=== PATIENT | female | born 1955 | race Caucasian/White ===

== ENCOUNTER 2016-05-18 21:58 | Emergency (ER) | payer MEDICAID, OTHER ==
[2016-05-18] MEDS ORDERED: LORazepam 2 MG/ML INJ ONE (22:20)
--- NOTE | 2016-05-18 22:24 | EDPHY ---
H & P Time Seen by Provider: 05/18/16 22:01 HPI/ROS: HPI The patient presents with vomiting which has been present all day today, she thinks she has had about 14 episodes of nonbloody nonbilious emesis. She awoke this morning and the vomiting has been constant ever since. It is moderate in severity. She has previous similar episodes. Last night she drink heavily, approximately 2 pt of hard alcohol she believes to the point of blacking out. She does not have any abdominal pain.. REVIEW OF SYSTEMS Constitutional: No fever, no chills. Eyes: No discharge. ENT: No sore throat. Cardiovascular: No chest pain, no palpitations. Respiratory: No cough, no shortness of breath. Gastrointestinal: No abdominal pain, no vomiting. Genitourinary: No hematuria. Musculoskeletal: Right wrist pain after a fall over her cat 3 days ago Skin: No rashes. Neurological: No headache. PMHx: Chronic alcohol abuse Soc Hx: Alcohol PHYSICAL General Appearance: Alert, no distress, tremulous Eyes: Pupils equal and round no pallor or injection ENT, Mouth: Mucous membranes dry, tongue wag Respiratory: There are no retractions, lungs are clear to auscultation Cardiovascular: Tachycardic Gastrointestinal: Abdomen is soft and non-tender, no masses, bowel sounds normal Neurological: A&O, moves all extremities Skin: Warm and dry, no rashes Musculoskeletal: Neck is supple non tender Extremities: symmetrical, full range of motion Psychiatric: Patient is oriented X 3, there is no agitation Source: Patient Exam Limitations: No limitations - Personal History Tetanus Vaccine Date: no vaccines in past 10 yrs - Medical/Surgical History Hx Asthma: No Hx Chronic Respiratory Disease: No Hx Diabetes: No Hx Cardiac Disease: Yes Hx Renal Disease: No Hx Cirrhosis: No Hx Alcoholism: Yes Hx HIV/AIDS: No Hx Splenectomy or Spleen Trauma: No Other PMH: Alcoholism, ddd, osteoarthritis, scoliosis, heart murmer, a-fib, C difficile-Dec 2015. PSHx: tonsillectomy - Social History Smoking Status: Never smoked Constitutional: Initial Vital Signs Temperature (C) 36.9 C 05/18/16 22:18 Heart Rate 98 05/18/16 22:18 Respiratory Rate 14 05/18/16 22:18 Blood Pressure 140/78 H 05/18/16 22:18 O2 Sat (%) 96 05/18/16 22:18 O2 Delivery Mode Room Air Allergies/Adverse Reactions: Sulfa (Sulfonamide Antibiotics) Allergy (Intermediate, Verified 05/18/16 22:18) Rash Home Medications: Medication Instructions Recorded Aspirin [Aspirin 81mg (*)] 81 mg PO DAILY #0 tab 02/02/16 Sertraline HCl [Zoloft 50mg (*)] 75 mg PO DAILY 03/14/16 Herbals/Supplements -Info Only 1 ea PO DAILY 04/22/16 Diltiazem Xr [Dilacor Xr] 240 mg PO DAILY #30 cap 04/24/16 chlordiazePOXIDE [Librium 25 mg 25 mg PO TID PRN #10 cap 04/24/16 (*)] Medical Decision Making ED Course/Re-evaluation: 10:15 p.m.- Initial patient encounter. An IV line is being established. We will plan for IV fluids, antiemetics, Ativan for alcohol withdrawal. 11:15 p.m.- I have reassessed the patient. Her heart rate continues to be normal. She is feeling better. She still has a mild hand tremor and I will give her an additional dose of Ativan for this. 12:10 a.m.- I have reassessed the patient. She is no longer tremulous and is able to tolerate fluids without difficulty. I plan to discharge her. We have discussed her alcohol use and she would like help. She was previously in the [employer] program however was found with alcohol in her system and was kicked out. I will refer her to case management. Differential Diagnosis: This is a 60-year-old female with frequent visits to our ER with past medical history of alcohol abuse, alcohol withdrawal seizures, pancreatitis, atrial fibrillation with RVR who now presents with vomiting for the last 1 day, unable to take p. o.. Differential diagnosis includes alcohol withdrawal, dehydration, pancreatitis, gastroenteritis. - Data Points Laboratory Results: Laboratory Results 05/18/16 22:20 05/18/16 22:20 05/18/16 22:20 WBC 8.59 10^3/uL (3.80-9.50) RBC 4.24 10^6/uL (4.18-5.33) Hgb 14.5 g/dL (12.6-16.3) Hct 40.9 % (38.0-47.0) MCV 96.5 fL (81.5-99.8) MCH 34.2 H pg (27.9-34.1) MCHC 35.5 g/dL (32.4-36.7) RDW 13.3 % (11.5-15.2) Plt Count 167 10^3/uL (150-400) MPV 9.5 fL (8.7-11.7) Neut % (Auto) 91.9 H % (39.3-74.2) Lymph % (Auto) 4.7 L % (15.0-45.0) [place] % (Auto) 2.9 L % (4.5-13.0) Eos % (Auto) 0.0 L % (0.6-7.6) Baso % (Auto) 0.2 L % (0.3-1.7) Nucleat RBC Rel Count 0.0 % (0.0-0.2) Absolute Neuts (auto) 7.89 H 10^3/uL (1.70-6.50) Absolute Lymphs (auto) 0.40 L 10^3/uL (1.00-3.00) Absolute Monos (auto) 0.25 L 10^3/uL (0.30-0.80) Absolute Eos (auto) 0.00 L 10^3/uL (0.03-0.40) Absolute Basos (auto) 0.02 10^3/uL (0.02-0.10) Absolute Nucleated RBC 0.00 10^3/uL (0-0.01) Immature Gran % 0.3 % (0.0-1.1) Immature Gran # 0.03 10^3/uL (0.00-0.10) Sodium 136 mEq/L (134-144) Potassium 3.7 mEq/L (3.5-5.2) Chloride 100 mEq/L (97-110) Carbon Dioxide 21 L mEq/l (22-31) Anion Gap 15 mEq/L (8-16) BUN 10 mg/dL (7-23) Creatinine 0.6 mg/dL (0.6-1.0) Estimated GFR > 60 Glucose 148 H mg/dL (70-100) Calcium 9.2 mg/dL (8.5-10.4) Total Bilirubin 1.8 H mg/dL (0.1-1.4) Conjugated Bilirubin 0.4 mg/dL (0.0-0.5) Unconjugated Bilirubin 1.4 H mg/dL (0.0-1.1) AST 49 H IU/L (14-46) ALT 39 IU/L (9-52) Alkaline Phosphatase 149 H IU/L (38-126) Total Protein 6.6 g/dL (6.3-8.2) Albumin 4.4 g/dL (3.5-5.0) Lipase 261.0 IU/L (23-300) Medications Given: Discontinued Medications Sodium Chloride (Ns) 1,000 mls @ 0 mls/hr IV ONCE ONE PRN Reason: Wide Open Stop: 05/18/16 22:26 Last Admin: 05/18/16 22:35 Dose: 1,000 mls Sodium Chloride (Ns) 1,000 mls @ 0 mls/hr IV ONCE ONE PRN Reason: Wide Open Stop: 05/18/16 22:26 Last Admin: 05/18/16 23:13 Dose: 1,000 mls Lorazepam (Ativan Injection) 1 mg IVP EDNOW ONE Stop: 05/18/16 22:35 Last Admin: 05/18/16 22:35 Dose: 1 mg Lorazepam (Ativan Injection) 1 mg IVP EDNOW ONE Stop: 05/18/16 23:07 Last Admin: 05/18/16 23:13 Dose: 1 mg Ondansetron HCl (Zofran) 4 mg IVP EDNOW ONE Stop: 05/18/16 22:26 Last Admin: 05/18/16 22:35 Dose: 4 mg Departure - Departure Disposition: Home, Routine, Self-Care Clinical Impression: Alcohol abuse, Alcohol withdrawal, Vomiting Condition: Fair Instructions: Alcohol Dependence (ED), Alcohol Withdrawal (ED) Referrals: Harriet Nelson MD [Primary Care Provider] - As per Instructions
[2016-05-18] MEDS ORDERED: ONDANSETRON 4 MG/2 ML VIAL IVP ONE (22:25)
[2016-05-18] MEDS ORDERED: NS 1,000 ML IV ONE ×2 (22:25)
[2016-05-18 22:26] LABS: % IMMATURE GRANULYOCYTES 0.3 % (0.0-1.1); ABSOLUTE IMMATURE GRANULOCYTES 0.03 10^3/uL (0.00-0.10); ADD DIFF? NO; ADD MORPH? NO; ADD SCAN? NO; ATYPICAL LYMPHOCYTE FLAG 0 (0-99); FRAGMENT RBC FLAG 0 (0-99); HEMATOCRIT 40.9 % (38.0-47.0); HEMOGLOBIN 14.5 g/dL (12.6-16.3); LEFT SHIFT FLG 0 (0-99); LIPEMIA HEMOLYSIS FLAG 90 (0-99); MEAN CELL HEMOGLOBIN 34.2 pg (27.9-34.1); MEAN CELL HEMOGLOBIN CONCENTR. 35.5 g/dL (32.4-36.7); MEAN CELL VOLUME 96.5 fL (81.5-99.8); MEAN PLATELET VOLUME 9.5 fL (8.7-11.7); PLATELET CLUMPS FLAG 0 (0-99); PLATELET COUNT 167 10^3/uL (150-400); RED BLOOD CELL COUNT 4.24 10^6/uL (4.18-5.33); RED CELL DISTRIBUTION WIDTH 13.3 % (11.5-15.2)
[2016-05-18] MEDS ORDERED: LORazepam 2 MG/ML INJ IVP ONE ×2 (22:34→23:06)
[2016-05-18 22:54] LABS: ALANINE AMINOTRANSFERASE 39 IU/L (9-52); ALBUMIN 4.4 g/dL (3.5-5.0); ALKALINE PHOSPHATASE 149 IU/L (38-126); ANION GAP 15 mEq/L (8-16); ASPARTATE AMINOTRANSFERASE 49 IU/L (14-46); BILIRUBIN,TOTAL 1.8 mg/dL (0.1-1.4); BILIRUBIN-CONJUGATED 0.4 mg/dL (0.0-0.5); BILIRUBIN-UNCONJUGATED 1.4 mg/dL (0.0-1.1); CALCIUM 9.2 mg/dL (8.5-10.4); CARBON DIOXIDE 21 mEq/l (22-31); CHLORIDE 100 mEq/L (97-110); CREATININE 0.6 mg/dL (0.6-1.0); GLOMERULAR FILTRATION RATE > 60; GLUCOSE 148 mg/dL (70-100); POTASSIUM 3.7 mEq/L (3.5-5.2); SODIUM 136 mEq/L (134-144); TOTAL PROTEIN 6.6 g/dL (6.3-8.2)
--- NOTE | 2016-05-18 23:47 | DX ---
Right Wrist, 4 views including a navicular view History: Pain post trauma. Recent seizure. Swelling. Findings: No acute fracture or dislocation is identified. There is diffuse low bone density. There i s an old healed mid shaft fifth metacarpal fracture. The navicular bone looks normal. Impression: 1. Nothing acute or subacute identified. Specifically no evidence of a healing or ununite d fracture.
[2016-05-19 00:33] VITALS: BP 108/77; PULSE 94; RESP 16; TEMP 97.9; O2SAT 96
== END 2016-05-19 00:33 | disposition home or self-care (01) ==
DX: F10.239 Alcohol dependence with withdrawal, unspecified (principal); Z79.82 Long term (current) use of aspirin
CPT/HCPCS: 96374; J2405

== ENCOUNTER 2016-06-09 12:53 | Emergency (ER) | payer MEDICAID ==
[2016-06-09 13:09] VITALS: O2SAT 93
[2016-06-09] MEDS ORDERED: NS 1,000 ML IV ONE ×2 (14:46)
[2016-06-09] MEDS ORDERED: ONDANSETRON 4 MG/2 ML VIAL IVP ONE (14:46)
[2016-06-09] MEDS ORDERED: FAMOTIDINE 20 MG/NACL 50 ML IV ONE (14:46)
[2016-06-09] MEDS ORDERED: LORazepam 2 MG/ML INJ IVP ONE ×2 (14:47→15:30)
--- NOTE | 2016-06-09 14:51 | EDPHY ---
H & P Stated Complaint: etoh withdrawal/n/v tremors Time Seen by Provider: 06/09/16 14:41 - Personal History Current Tetanus/Diphtheria Vaccine: Yes Tetanus Vaccine Date: no vaccines in past 10 yrs - Medical/Surgical History Hx Asthma: No Hx Chronic Respiratory Disease: No Hx Diabetes: No Hx Cardiac Disease: Yes Hx Renal Disease: No Hx Cirrhosis: No Hx Alcoholism: Yes Hx HIV/AIDS: No Hx Splenectomy or Spleen Trauma: No Other PMH: Alcoholism, ddd, osteoarthritis, scoliosis, heart murmer, a-fib, C difficile-Dec 2015. PSHx: tonsillectomy - Social History Smoking Status: Never smoked Constitutional: Initial Vital Signs Temperature (C) 37.1 C 06/09/16 13:06 Heart Rate 116 H 06/09/16 13:06 Respiratory Rate 20 06/09/16 13:06 Blood Pressure 148/94 H 06/09/16 13:06 O2 Sat (%) 93 06/09/16 13:06 O2 Delivery Mode Room Air Allergies/Adverse Reactions: Sulfa (Sulfonamide Antibiotics) Allergy (Intermediate, Verified 06/09/16 13:03) Rash Home Medications: Medication Instructions Recorded Aspirin [Aspirin 81mg (*)] 81 mg PO DAILY #0 tab 02/02/16 Sertraline HCl [Zoloft 50mg (*)] 75 mg PO DAILY 03/14/16 Herbals/Supplements -Info Only 1 ea PO DAILY 04/22/16 Diltiazem Xr [Dilacor Xr] 240 mg PO DAILY #30 cap 04/24/16 GABAPENTIN 06/09/16 Zofran 06/09/16 Medical Decision Making ED Course/Re-evaluation: CHIEF COMPLAINT: Alcohol intoxication. HISTORY OF PRESENT ILLNESS: The patient is a chronic alcoholic Who lives at home. Patient drinks on a daily basis. patient has not had alcohol since 11: 00 p.m. last night. Patient is now withdrawal with shakes and vomiting and unable to hold down fluids. She has presented here multiple times in the past for the same reason. Patient denies any injuries denies loss of consciousness denies any recent trauma. Patient denies co-ingestion. Patient denies suicidal or homicidal behavior. REVIEW OF SYSTEMS: A 10 point review of systems was performed and is negative with the exception of the elements mentioned in the history of present illness. PHYSICAL EXAM: General Appearance: Alert, well hydrated, appropriate, and non-toxic appearing. Head: Atraumatic without scalp tenderness or obvious injury Eyes: Pupils equal, round, reactive to light and accommodation, EOMI, no trauma , no injection. Ears: Clear bilaterally, no perforation, normal landmarks Nose: Atraumatic, no rhinorrhea, clear. Throat: There is no erythema or exudates, no lesions, normal tonsils, mucus membranes moist. Neck: Supple, 2+ carotid upstroke, nontender, no lymphadenopathy. Respiratory: No retractions, no distress, no wheezes, and no accessory muscle use. Lungs are clear to auscultation bilaterally. Cardiovascular: Regular rate and rhythm, no murmurs, rubs, or gallops. Bilateral carotid, radial, dorsalis pedis, and posterior tibial pulses intact. Good capillary refill all extremities. Gastrointestinal: Abdomen is soft, nontender, non-distended, no masses, no rebound, no guarding, no peritoneal signs. Musculoskeletal: Normal active ROM of all extremities, atraumatic. Neurological: General shakiness,Alert, appropriate, and interactive. The patient has normal DTRs and non-focal cranial nerves, motor, sensory, and cerebellar exam. Skin: No rashes, good turgor, no nodules on palpation. PAST MEDICAL HISTORY: hypertension, chronic alcoholism, peripheral neuropathy PAST SURGICAL HISTORY: noncontributory SOCIAL HISTORY: lives at home, chronic alcoholism, denies abuse of cigarettes or other drugs DIFFERENTIAL DIAGNOSIS: The differential diagnosis for the patient's nausea and vomiting included but was not limited to [gastroenteritis, gastritis, appendicitis, alcohol withdrawal, and medication side effect.] MEDICAL DECISION MAKING: I have given this patient intravenous fluids, 1 mg of Ativan, 4 mg of Zofran. I have also given her 20 mg of Pepcid. She is having tremors and vomiting in scarring on the CIWA scale at this point. I will stabilize her hydrate her make sure she can take p. o. and then discuss addiction recovery disposition. - Data Points Laboratory Results: Laboratory Results 06/09/16 14:45 06/09/16 14:45 06/09/16 14:45 WBC 8.92 10^3/uL (3.80-9.50) RBC 4.34 10^6/uL (4.18-5.33) Hgb 14.6 g/dL (12.6-16.3) Hct 43.1 % (38.0-47.0) MCV 99.3 fL (81.5-99.8) MCH 33.6 pg (27.9-34.1) MCHC 33.9 g/dL (32.4-36.7) RDW 13.8 % (11.5-15.2) Plt Count 126 L 10^3/uL (150-400) MPV 9.1 fL (8.7-11.7) Neut % (Auto) 91.9 H % (39.3-74.2) Lymph % (Auto) 2.9 L % (15.0-45.0) [place] % (Auto) 4.6 % (4.5-13.0) Eos % (Auto) 0.0 L % (0.6-7.6) Baso % (Auto) 0.2 L % (0.3-1.7) Nucleat RBC Rel Count 0.0 % (0.0-0.2) Absolute Neuts (auto) 8.19 H 10^3/uL (1.70-6.50) Absolute Lymphs (auto) 0.26 L 10^3/uL (1.00-3.00) Absolute Monos (auto) 0.41 10^3/uL (0.30-0.80) Absolute Eos (auto) 0.00 L 10^3/uL (0.03-0.40) Absolute Basos (auto) 0.02 10^3/uL (0.02-0.10) Absolute Nucleated RBC 0.00 10^3/uL (0-0.01) Immature Gran % 0.4 % (0.0-1.1) Immature Gran # 0.04 10^3/uL (0.00-0.10) Sodium 140 mEq/L (134-144) Potassium 5.3 H mEq/L (3.5-5.2) Chloride 104 mEq/L (97-110) Carbon Dioxide 13 L mEq/l (22-31) Anion Gap 23 H mEq/L (8-16) BUN 11 mg/dL (7-23) Creatinine 0.8 mg/dL (0.6-1.0) Estimated GFR > 60 Glucose 193 H mg/dL (70-100) Calcium 9.0 mg/dL (8.5-10.4) Total Bilirubin 1.4 mg/dL (0.1-1.4) Conjugated Bilirubin 0.6 H mg/dL (0.0-0.5) Unconjugated Bilirubin 0.8 mg/dL (0.0-1.1) AST 64 H IU/L (14-46) ALT 47 IU/L (9-52) Alkaline Phosphatase 181 H IU/L (38-126) Total Protein 7.1 g/dL (6.3-8.2) Albumin 4.7 g/dL (3.5-5.0) Lipase 273.0 IU/L (23-300) Medications Given: Discontinued Medications Sodium Chloride (Ns) 1,000 mls @ 0 mls/hr IV ONCE ONE PRN Reason: Wide Open Stop: 06/09/16 14:47 Last Admin: 06/09/16 14:50 Dose: 1,000 mls Sodium Chloride (Ns) 1,000 mls @ 0 mls/hr IV ONCE ONE PRN Reason: Wide Open Stop: 06/09/16 14:47 Last Admin: 06/09/16 15:30 Dose: 1,000 mls Famotidine/Sodium Chloride (Pepcid 20 Mg (Premix)) 50 mls @ 200 mls/hr IV EDNOW ONE Stop: 06/09/16 15:00 Last Admin: 06/09/16 15:08 Dose: 50 mls Lorazepam (Ativan Injection) 1 mg IVP EDNOW ONE Stop: 06/09/16 14:48 Last Admin: 06/09/16 15:08 Dose: 1 mg Lorazepam (Ativan Injection) 1 mg IVP EDNOW ONE Stop: 06/09/16 15:31 Last Admin: 06/09/16 15:39 Dose: 1 mg Ondansetron HCl (Zofran) 4 mg IVP EDNOW ONE Stop: 06/09/16 14:47 Last Admin: 06/09/16 15:08 Dose: 4 mg Departure - Departure Disposition: Home, Routine, Self-Care Clinical Impression: Nausea & vomiting Qualifiers: Vomiting type: unspecified Vomiting Intractability: non-intractable Qualifier Code: (R11.2) Nausea with vomiting, unspecified Alcohol withdrawal Qualifiers: Complication of substance-induced condition: uncomplicated Qualifier Code: ( F10.055) Alcohol dependence with withdrawal, uncomplicated Condition: Good Instructions: Alcohol Withdrawal (ED) Additional Instructions: Go directly to the [facility]. Referrals: Harriet Nelson MD [Primary Care Provider] - As per Instructions [facility] 24 Hours [Outside] - As per Instructions
[2016-06-09 15:01] LABS: % IMMATURE GRANULYOCYTES 0.4 % (0.0-1.1); ABSOLUTE IMMATURE GRANULOCYTES 0.04 10^3/uL (0.00-0.10); ADD DIFF? NO; ADD MORPH? NO; ADD SCAN? NO; ATYPICAL LYMPHOCYTE FLAG 0 (0-99); FRAGMENT RBC FLAG 0 (0-99); HEMATOCRIT 43.1 % (38.0-47.0); HEMOGLOBIN 14.6 g/dL (12.6-16.3); LEFT SHIFT FLG 0 (0-99); LIPEMIA HEMOLYSIS FLAG 90 (0-99); MEAN CELL HEMOGLOBIN 33.6 pg (27.9-34.1); MEAN CELL HEMOGLOBIN CONCENTR. 33.9 g/dL (32.4-36.7); MEAN CELL VOLUME 99.3 fL (81.5-99.8); MEAN PLATELET VOLUME 9.1 fL (8.7-11.7); PLATELET CLUMPS FLAG 0 (0-99); PLATELET COUNT 126 10^3/uL (150-400); RED BLOOD CELL COUNT 4.34 10^6/uL (4.18-5.33); RED CELL DISTRIBUTION WIDTH 13.8 % (11.5-15.2)
[2016-06-09 15:21] LABS: ALANINE AMINOTRANSFERASE 47 IU/L (9-52); ALBUMIN 4.7 g/dL (3.5-5.0); ALKALINE PHOSPHATASE 181 IU/L (38-126); ANION GAP 23 mEq/L (8-16); ASPARTATE AMINOTRANSFERASE 64 IU/L (14-46); BILIRUBIN,TOTAL 1.4 mg/dL (0.1-1.4); BILIRUBIN-CONJUGATED 0.6 mg/dL (0.0-0.5); BILIRUBIN-UNCONJUGATED 0.8 mg/dL (0.0-1.1); CARBON DIOXIDE 13 mEq/l (22-31); CHLORIDE 104 mEq/L (97-110); CREATININE 0.8 mg/dL (0.6-1.0); GLOMERULAR FILTRATION RATE > 60; GLUCOSE 193 mg/dL (70-100); POTASSIUM 5.3 mEq/L (3.5-5.2); SODIUM 140 mEq/L (134-144); TOTAL PROTEIN 7.1 g/dL (6.3-8.2)
[2016-06-09 16:40] VITALS: BP 157/93; PULSE 100; RESP 18; TEMP 99.1
== END 2016-06-09 16:47 | disposition home or self-care (01) ==
DX: F10.230 Alcohol dependence with withdrawal, uncomplicated (principal); R11.2 Nausea with vomiting, unspecified; I10 Essential (primary) hypertension; Z79.82 Long term (current) use of aspirin
CPT/HCPCS: 96365; J2405

== ENCOUNTER 2016-06-20 00:44 | Emergency (ER) | payer MEDICAID ==
--- NOTE | 2016-06-20 00:57 | CPEKG ---
Heart Rate: 111 RR Interval: 541 P-R Interval: 176 QRSD Interval: 70 QT Interval: 344 QTC Interval: 468 P [place]: 54 QRS [place]: 15 T Wave [place]: 14 EKG Severity - BORDERLINE ECG - EKG Impression: SINUS TACHYCARDIA EKG Impression: LOW VOLTAGE IN FRONTAL LEADS Electronically Signed By: Irais Blackmon 20-Jun-2016 06:41:18
[2016-06-20 00:59] VITALS: PULSE 105; TEMP 98.1
[2016-06-20] MEDS ORDERED: LORazepam 2 MG/ML INJ IVP ONE ×2 (01:13→02:43)
[2016-06-20] MEDS ORDERED: NS 1,000 ML IV ONE ×2 (01:13→02:44)
[2016-06-20] MEDS ORDERED: ONDANSETRON 4 MG/2 ML VIAL IVP ONE (01:14)
[2016-06-20 01:17] LABS: % IMMATURE GRANULYOCYTES 0.3 % (0.0-1.1); ABSOLUTE IMMATURE GRANULOCYTES 0.01 10^3/uL (0.00-0.10); ADD DIFF? NO; ADD MORPH? NO; ADD SCAN? NO; ATYPICAL LYMPHOCYTE FLAG 10 (0-99); FRAGMENT RBC FLAG 0 (0-99); HEMATOCRIT 46.9 % (38.0-47.0); HEMOGLOBIN 16.3 g/dL (12.6-16.3); LEFT SHIFT FLG 0 (0-99); LIPEMIA HEMOLYSIS FLAG 90 (0-99); MEAN CELL HEMOGLOBIN 34.7 pg (27.9-34.1); MEAN CELL HEMOGLOBIN CONCENTR. 34.8 g/dL (32.4-36.7); MEAN CELL VOLUME 99.8 fL (81.5-99.8); MEAN PLATELET VOLUME 9.8 fL (8.7-11.7); PLATELET CLUMPS FLAG 0 (0-99); PLATELET COUNT 92 10^3/uL (150-400); RED CELL DISTRIBUTION WIDTH 16.3 % (11.5-15.2)
[2016-06-20 01:35] LABS: ALANINE AMINOTRANSFERASE 55 IU/L (9-52); ALBUMIN 4.9 g/dL (3.5-5.0); ALKALINE PHOSPHATASE 232 IU/L (38-126); ANION GAP 19 mEq/L (8-16); ASPARTATE AMINOTRANSFERASE 100 IU/L (14-46); BILIRUBIN,TOTAL 1.6 mg/dL (0.1-1.4); BILIRUBIN-CONJUGATED 0.6 mg/dL (0.0-0.5); CALCIUM 10.5 mg/dL (8.5-10.4); CARBON DIOXIDE 20 mEq/l (22-31); CHLORIDE 99 mEq/L (97-110); CREATININE 0.8 mg/dL (0.6-1.0); GLOMERULAR FILTRATION RATE > 60; POTASSIUM 3.8 mEq/L (3.5-5.2); SODIUM 138 mEq/L (134-144); TOTAL PROTEIN 8.2 g/dL (6.3-8.2)
[2016-06-20 01:46] LABS: TROPONIN I 0.023 ng/mL (0-0.034)
[2016-06-20 01:49] LABS: GLUCOSE 113 mg/dL (70-100)
--- NOTE | 2016-06-20 02:26 | EDPHY ---
H & P Stated Complaint: tachycardia, hypertension, N/V "I feel crappy" Time Seen by Provider: 06/20/16 01:08 HPI/ROS: HPI The patient presents with vomiting which has been present for several hours this evening and is associated with a general sense of malaise. She checked her heart rate and it was in the 100s with elevated blood pressure so she called her advice nurse and was instructed to come into the emergency room. The vomiting is nonbloody nonbilious. It has now stopped. She does not have any abdominal pain. Her last alcoholic drink was at noon. She denies any chest pain, shortness of breath. She says that she has been able to take her medications. REVIEW OF SYSTEMS Constitutional: No fever, no chills. Eyes: No discharge. ENT: No sore throat. Cardiovascular: No chest pain, no palpitations. Respiratory: No cough, no shortness of breath. Gastrointestinal: No abdominal pain, no vomiting. Genitourinary: No hematuria. Musculoskeletal: No back pain. Skin: No rashes. Neurological: No headache. PMHx: Atrial fibrillation, chronic alcohol abuse, history of alcoholic pancreatitis Soc Hx: Lives independently PHYSICAL General Appearance: Alert, no distress Eyes: Pupils equal and round no pallor or injection ENT, Mouth: Mucous membranes dry Respiratory: There are no retractions, lungs are clear to auscultation Cardiovascular: Tachycardic rate rate and regular rhythm Gastrointestinal: Abdomen is soft and non-tender, no masses, bowel sounds normal Neurological: A&O, moves all extremities, fine hand tremor Skin: Warm and dry, no rashes Musculoskeletal: Neck is supple non tender Extremities: symmetrical, full range of motion Psychiatric: Patient is oriented X 3, there is no agitation Source: Patient - Personal History Tetanus Vaccine Date: no vaccines in past 10 yrs - Medical/Surgical History Hx Asthma: No Hx Chronic Respiratory Disease: No Hx Diabetes: No Hx Cardiac Disease: Yes Hx Renal Disease: No Hx Cirrhosis: No Hx Alcoholism: Yes Hx HIV/AIDS: No Hx Splenectomy or Spleen Trauma: No Other PMH: PMHx: Alcoholism, ddd, osteoarthritis, scoliosis, heart murmer, a-fib , C difficile-Dec 2015. PSHx: tonsillectomy - Social History Smoking Status: Never smoked Constitutional: Initial Vital Signs Temperature (C) 36.7 C 06/20/16 00:54 Heart Rate 105 H 06/20/16 00:54 Respiratory Rate 14 06/20/16 00:54 Blood Pressure 180/111 H 06/20/16 00:54 O2 Sat (%) 93 06/20/16 00:54 O2 Delivery Mode Room Air O2 (L/minute) 2 Allergies/Adverse Reactions: Sulfa (Sulfonamide Antibiotics) Allergy (Intermediate, Verified 06/09/16 13:03) Rash Home Medications: Medication Instructions Recorded Aspirin [Aspirin 81mg (*)] 81 mg PO DAILY #0 tab 02/02/16 Sertraline HCl [Zoloft 50mg (*)] 75 mg PO DAILY 03/14/16 Herbals/Supplements -Info Only 1 ea PO DAILY 04/22/16 Diltiazem Xr [Dilacor Xr] 240 mg PO DAILY #30 cap 04/24/16 GABAPENTIN 06/09/16 Zofran 06/09/16 Medical Decision Making - Diagnostics EKG Interpretation: EKG: Complete interpretation has been separately recorded in the [facility] archive. Summary impression: Sinus tachycardia Imaging: Chest x-ray two view shows no cardiomegaly, interpreted by me, radiology interpretation is pending. Differential Diagnosis: This is a 60-year-old female with chronic alcohol abuse, history of pancreatitis , atrial fibrillation who presents with vomiting and generalized malaise since this afternoon. She checked her vitals and found that she was tachycardic and hypertensive. On exam, she is slightly hypertensive and tachycardic. I feel this is mostly due to dehydration from vomiting. Her abdominal exam is benign. She is given IV fluids and Zofran. Labs revealed elevated lipase and elevated liver tests. I feel she has pancreatitis as her most likely diagnosis with dehydration. Chest x-ray, troponin were all unremarkable. She was persistently tachycardic and seemed to be in mild alcohol withdrawal so was given additional L of fluid and a dose of Ativan with improvement in her symptoms. She was still very slightly tachycardic upon discharge. Her oxygen saturation on discharge was recorded 86, however she was resting at this time, and I doubt she was truly hypoxic. She will be discharged and has her 1st photographic spotter appointment tomorrow. - Data Points Laboratory Results: Laboratory Results 06/20/16 01:05 06/20/16 01:05 06/20/16 06/20/16 01:05 01:05 WBC 3.97 10^3/uL 10^3/uL (3.80-9.50) RBC 4.70 10^6/uL 10^6/uL (4.18-5.33) Hgb 16.3 g/dL g/dL (12.6-16.3) Hct 46.9 % % (38.0-47.0) MCV 99.8 fL fL (81.5-99.8) MCH 34.7 pg H pg (27.9-34.1) MCHC 34.8 g/dL g/dL (32.4-36.7) RDW 16.3 % H % (11.5-15.2) Plt Count 92 10^3/uL L 10^3/uL (150-400) MPV 9.8 fL fL (8.7-11.7) Neut % (Auto) 70.9 % % (39.3-74.2) Lymph % (Auto) 16.9 % % (15.0-45.0) [place] % (Auto) 10.3 % % (4.5-13.0) Eos % (Auto) 0.8 % % (0.6-7.6) Baso % (Auto) 0.8 % % (0.3-1.7) Nucleat RBC Rel Count 0.0 % % (0.0-0.2) Absolute Neuts (auto) 2.82 10^3/uL 10^3/uL (1.70-6.50) Absolute Lymphs (auto) 0.67 10^3/uL L 10^3/uL (1.00-3.00) Absolute Monos (auto) 0.41 10^3/uL 10^3/uL (0.30-0.80) Absolute Eos (auto) 0.03 10^3/uL 10^3/uL (0.03-0.40) Absolute Basos (auto) 0.03 10^3/uL 10^3/uL (0.02-0.10) Absolute Nucleated RBC 0.00 10^3/uL 10^3/uL (0-0.01) Immature Gran % 0.3 % % (0.0-1.1) Immature Gran # 0.01 10^3/uL 10^3/uL (0.00-0.10) Sodium 138 mEq/L mEq/L (134-144) Potassium 3.8 mEq/L mEq/L (3.5-5.2) Chloride 99 mEq/L mEq/L (97-110) Carbon Dioxide 20 mEq/l L mEq/l (22-31) Anion Gap 19 mEq/L H mEq/L (8-16) BUN 4 mg/dL L mg/dL (7-23) Creatinine 0.8 mg/dL mg/dL (0.6-1.0) Estimated GFR > 60 Glucose 113 mg/dL H mg/dL (70-100) Calcium 10.5 mg/dL H mg/dL (8.5-10.4) Total Bilirubin 1.6 mg/dL H mg/dL (0.1-1.4) Conjugated Bilirubin 0.6 mg/dL H mg/dL (0.0-0.5) Unconjugated Bilirubin 1.0 mg/dL mg/dL (0.0-1.1) AST 100 IU/L H IU/L (14-46) ALT 55 IU/L H IU/L (9-52) Alkaline Phosphatase 232 IU/L H IU/L (38-126) Troponin I 0.023 ng/mL ng/mL (0-0.034) Total Protein 8.2 g/dL g/dL (6.3-8.2) Albumin 4.9 g/dL g/dL (3.5-5.0) Lipase 534.0 IU/L H IU/L (23-300) Medications Given: Discontinued Medications Sodium Chloride (Ns) 1,000 mls @ 0 mls/hr IV ONCE ONE PRN Reason: Wide Open Stop: 06/20/16 01:14 Last Admin: 06/20/16 01:22 Dose: 1,000 mls Sodium Chloride (Ns) 1,000 mls @ 0 mls/hr IV EDNOW ONE PRN Reason: Wide Open Stop: 06/20/16 02:45 Last Admin: 06/20/16 02:44 Dose: 1,000 mls Lorazepam (Ativan Injection) 1 mg IVP EDNOW ONE Stop: 06/20/16 01:14 Last Admin: 06/20/16 01:23 Dose: 1 mg Lorazepam (Ativan Injection) 1 mg IVP EDNOW ONE Stop: 06/20/16 02:44 Last Admin: 06/20/16 02:44 Dose: 1 mg Ondansetron HCl (Zofran) 4 mg IVP EDNOW ONE Stop: 06/20/16 01:15 Last Admin: 06/20/16 01:22 Dose: 4 mg Departure - Departure Disposition: Home, Routine, Self-Care Clinical Impression: Pancreatitis Qualifiers: Chronicity: acute Pancreatitis type: alcohol induced Acute pancreatitis complication: unspecified Qualified Code(s): K85.20 - Alcohol induced acute pancreatitis without necrosis or infection Alcohol withdrawal Qualifiers: Complication of substance-induced condition: with unspecified complication Qualified Code(s): F10.239 - Alcohol dependence with withdrawal, unspecified Atrial fibrillation Qualifiers: Atrial fibrillation type: persistent Qualified Code(s): I48.1 - Persistent atrial fibrillation Nausea & vomiting Qualifiers: Vomiting type: unspecified Vomiting Intractability: non-intractable Qualified Code(s): R11.2 - Nausea with vomiting, unspecified Condition: Good Instructions: Pancreatitis (ED) Referrals: Harriet Nelson MD [Primary Care Provider] - As per Instructions
[2016-06-20 02:34] VITALS: BP 183/105; RESP 15; O2SAT 86
[2016-06-20] MEDS ORDERED: LORazepam 2 MG/ML INJ ONE (02:36)
== END 2016-06-20 04:07 | disposition home or self-care (01) ==
DX: K85.20 Alcohol induced acute pancreatitis without necrosis or infection (principal); F10.239 Alcohol dependence with withdrawal, unspecified; I48.1 Persistent atrial fibrillation; Z79.82 Long term (current) use of aspirin
CPT/HCPCS: 96374; J2405

== ENCOUNTER 2016-06-30 15:23 | Emergency (ER) | payer MEDICAID ==
--- NOTE | 2016-06-30 15:45 | EDPHY ---
H & P Time Seen by Provider: 06/30/16 15:44 HPI/ROS: CHIEF COMPLAINT: " I have alcohol withdrawal." HISTORY OF PRESENT ILLNESS: The patient is a 60-year-old female with a history of alcoholism that presents to the emergency department stating that she has been vomiting for the past 10 hours due to alcohol withdrawal. Her last drink was last evening. She states she goes on binges intermittently. She drank a pint of alcohol per day for the last few days. Patient describes general body shakes. No nausea, vomiting and diarrhea. Patient has had no recent illnesses. She denies chest pain or shortness of breath. No recent falls. No headache. REVIEW OF SYSTEMS: My complete review of systems is negative except as mentioned in the HPI. Past Medical/Surgical History: Includes alcoholism, degenerative disc disease, osteoarthritis, scoliosis, heart murmur, C difficile, atrial fibrillation Past surgical history: Tonsillectomy Social history: The patient drinks heavily. No drug use. Smoking Status: Never smoked Physical Exam: Vitals noted GENERAL: mild acute distress, alert. HEENT: Eyes normal to inspection, normal pharynx, no signs of dehydration. NECK: No thyromegaly, no lymphadenopathy, supple. RESPIRATORY: Clear to auscultation bilaterally, no rales, rhonchi or wheezing. CVS: Mild tachycardia with a irregular rhythm, no rubs, murmurs, or gallops. ABDOMEN: Soft, nontender, nondistended, no organomegaly. BACK: Normal to inspection, no CVA tenderness. SKIN: Normal color, no rash, warm, dry. No pallor. EXTREMITIES: No pedal edema, no calf tenderness, no Homans sign or cords, no joint swelling. NEURO/PSYCH: Alert and oriented x3, normal mood and affect, normal motor sensory exam. Significant hand tremor. Tongue wag. No obvious cranial nerve deficit. Constitutional: Initial Vital Signs Temperature (C) 37.1 C 06/30/16 15:31 Heart Rate 101 H 06/30/16 15:31 Respiratory Rate 18 06/30/16 15:31 Blood Pressure 171/95 H 06/30/16 15:31 O2 Sat (%) 96 06/30/16 15:31 O2 Delivery Mode Nasal Cannula O2 (L/minute) 2 Allergies/Adverse Reactions: Sulfa (Sulfonamide Antibiotics) Allergy (Mild, Verified 06/30/16 15:30) Rash Home Medications: Medication Instructions Recorded Aspirin [Aspirin 81mg (*)] 81 mg PO DAILY #0 tab 02/02/16 Sertraline HCl [Zoloft 50mg (*)] 75 mg PO DAILY 03/14/16 Herbals/Supplements -Info Only 1 ea PO DAILY 04/22/16 Diltiazem Xr [Dilacor Xr] 240 mg PO DAILY #30 cap 04/24/16 GABAPENTIN 06/09/16 Zofran 06/09/16 Medical Decision Making - Diagnostics EKG Interpretation: Atrial fibrillation at 91. Normal axis. Borderline prolonged QT interval. No ST or T-wave abnormality. ED Course/Re-evaluation: In the emergency department patient was given normal saline 2 L IV for hydration. She was given Librium 25 mg orally and Ativan 1 mg IV for alcohol withdrawal symptoms. I discussed the patient with case management. She will evaluate the patient for alcohol detox potential. 1725: I discussed the result with the patient. Patient was feeling much better. Patient was given follow-up with [facility] Sunday morning. The patient is aware of this plan. I answered all her questions. She felt comfortable with discharge. She is given Librium 25 mg orally. I discussed the diagnosis of atrial fibrillation. Patient is currently not on a blood thinner. This is been discussed with her your primary care physician. She does not want to be on anticoagulation at this time for atrial fibrillation. Differential Diagnosis: My differential includes but is not limited to alcohol withdrawal, electrolyte abnormality, sugar abnormality, dehydration, atrial fibrillation, ACS, acute [place] , CVA - Data Points Laboratory Results: Laboratory Results 06/30/16 16:04 06/30/16 16:04 06/30/16 06/30/16 16:04 16:04 WBC 2.68 10^3/uL L 10^3/uL (3.80-9.50) RBC 4.28 10^6/uL 10^6/uL (4.18-5.33) Hgb 15.0 g/dL g/dL (12.6-16.3) Hct 42.3 % % (38.0-47.0) MCV 98.8 fL fL (81.5-99.8) MCH 35.0 pg H pg (27.9-34.1) MCHC 35.5 g/dL g/dL (32.4-36.7) RDW 16.0 % H % (11.5-15.2) Plt Count 127 10^3/uL L 10^3/uL (150-400) MPV 10.1 fL fL (8.7-11.7) Neut % (Auto) 78.1 % H % (39.3-74.2) Lymph % (Auto) 12.3 % L % (15.0-45.0) [place] % (Auto) 7.8 % % (4.5-13.0) Eos % (Auto) 0.4 % L % (0.6-7.6) Baso % (Auto) 0.7 % % (0.3-1.7) Nucleat RBC Rel Count 0.0 % % (0.0-0.2) Absolute Neuts (auto) 2.09 10^3/uL 10^3/uL (1.70-6.50) Absolute Lymphs (auto) 0.33 10^3/uL L 10^3/uL (1.00-3.00) Absolute Monos (auto) 0.21 10^3/uL L 10^3/uL (0.30-0.80) Absolute Eos (auto) 0.01 10^3/uL L 10^3/uL (0.03-0.40) Absolute Basos (auto) 0.02 10^3/uL 10^3/uL (0.02-0.10) Absolute Nucleated RBC 0.00 10^3/uL 10^3/uL (0-0.01) Immature Gran % 0.7 % % (0.0-1.1) Immature Gran # 0.02 10^3/uL 10^3/uL (0.00-0.10) Sodium 134 mEq/L mEq/L (134-144) Potassium 4.4 mEq/L mEq/L (3.5-5.2) Chloride 100 mEq/L mEq/L (97-110) Carbon Dioxide 18 mEq/l L mEq/l (22-31) Anion Gap 16 mEq/L mEq/L (8-16) BUN 6 mg/dL L mg/dL (7-23) Creatinine 0.6 mg/dL mg/dL (0.6-1.0) Estimated GFR > 60 Glucose 111 mg/dL H mg/dL (70-100) Calcium 9.2 mg/dL mg/dL (8.5-10.4) Medications Given: Discontinued Medications Chlordiazepoxide HCl (Librium) 25 mg PO EDNOW ONE Stop: 06/30/16 16:15 Last Admin: 06/30/16 16:36 Dose: 25 mg Sodium Chloride (Ns) 1,000 mls @ 0 mls/hr IV ONCE ONE PRN Reason: Wide Open Stop: 06/30/16 16:15 Last Admin: 06/30/16 16:23 Dose: 1,000 mls Lorazepam (Ativan Injection) 1 mg IVP EDNOW ONE Stop: 06/30/16 16:15 Last Admin: 06/30/16 16:23 Dose: 1 mg Departure - Departure Disposition: Home, Routine, Self-Care Clinical Impression: Alcohol withdrawal Qualifiers: Complication of substance-induced condition: uncomplicated Qualified Code(s): F10.230 - Alcohol dependence with withdrawal, uncomplicated Condition: Good Instructions: Alcohol Withdrawal (ED) Additional Instructions: Dominique Rivera have made you an appointment on July 03, at 800 AM at [facility] with Matthew Finney. The address is [address] [place] [address] in [place]. The phone number is Referrals: Harriet Nelson MD [Primary Care Provider] - As per Instructions [facility],. [Clinic] - 07/03/16 8:00 am
[2016-06-30] MEDS ORDERED: NS 1,000 ML IV ONE ×2 (16:14→17:33)
[2016-06-30] MEDS ORDERED: chlordiazePOXIDE 25 MG CAP PO ONE ×2 (16:14→17:28)
[2016-06-30] MEDS ORDERED: LORazepam 2 MG/ML INJ IVP ONE (16:14)
[2016-06-30 16:26] LABS: % IMMATURE GRANULYOCYTES 0.7 % (0.0-1.1); ABSOLUTE IMMATURE GRANULOCYTES 0.02 10^3/uL (0.00-0.10); ADD DIFF? NO; ADD MORPH? NO; ADD SCAN? NO; ATYPICAL LYMPHOCYTE FLAG 30 (0-99); FRAGMENT RBC FLAG 0 (0-99); HEMATOCRIT 42.3 % (38.0-47.0); LEFT SHIFT FLG 0 (0-99); LIPEMIA HEMOLYSIS FLAG 90 (0-99); MEAN CELL HEMOGLOBIN CONCENTR. 35.5 g/dL (32.4-36.7); MEAN CELL VOLUME 98.8 fL (81.5-99.8); MEAN PLATELET VOLUME 10.1 fL (8.7-11.7); PLATELET CLUMPS FLAG 0 (0-99); PLATELET COUNT 127 10^3/uL (150-400); RED BLOOD CELL COUNT 4.28 10^6/uL (4.18-5.33)
[2016-06-30 17:04] LABS: ANION GAP 16 mEq/L (8-16); CALCIUM 9.2 mg/dL (8.5-10.4); CARBON DIOXIDE 18 mEq/l (22-31); CHLORIDE 100 mEq/L (97-110); CREATININE 0.6 mg/dL (0.6-1.0); GLOMERULAR FILTRATION RATE > 60; GLUCOSE 111 mg/dL (70-100); POTASSIUM 4.4 mEq/L (3.5-5.2); SODIUM 134 mEq/L (134-144)
--- NOTE | 2016-06-30 17:51 | CPEKG ---
Heart Rate: 91 RR Interval: 659 QRSD Interval: 80 QT Interval: 412 QTC Interval: 508 QRS [place]: 22 T Wave [place]: 55 EKG Severity - ABNORMAL ECG - EKG Impression: ATRIAL FIBRILLATION EKG Impression: LOW VOLTAGE IN FRONTAL LEADS EKG Impression: BORDERLINE PROLONGED QT INTERVAL Electronically Signed By: Otis Tom 30-Jun-2016 19:13:21
[2016-06-30 18:01] VITALS: BP 155/88; PULSE 97; RESP 16; TEMP 98.6; O2SAT 95
== END 2016-06-30 18:00 | disposition home or self-care (01) ==
DX: F10.230 Alcohol dependence with withdrawal, uncomplicated (principal); Z79.82 Long term (current) use of aspirin
CPT/HCPCS: 96374

== ENCOUNTER 2016-07-28 17:23 | Emergency (ER) | payer MEDICAID ==
[2016-07-28] MEDS ORDERED: LORazepam 2 MG/ML INJ IVP ONE (17:34)
[2016-07-28] MEDS ORDERED: NS 1,000 ML IV ONE (17:34)
[2016-07-28] MEDS ORDERED: ONDANSETRON 4 MG/2 ML VIAL IVP ONE (17:34)
--- NOTE | 2016-07-28 17:34 | EDPHY ---
H & P Stated Complaint: n/v/d seen freq for same (often etoh withdrawal) Time Seen by Provider: 07/28/16 17:33 HPI/ROS: CHIEF COMPLAINT: Alcohol withdrawal HISTORY OF PRESENT ILLNESS: The patient presents to the ED with symptoms of alcohol withdrawal consisting of tremor, vomiting and diarrhea. The patient reports her last drink was approximately 13 hours ago. The patient denies significant abdominal pain, melena, fever, cough or additional medical complaints. The patient reports that she has been compliant with diltiazem for her chronic atrial fibrillation. The patient is not anticoagulated. The patient also takes sertraline. REVIEW OF SYSTEMS: A comprehensive 10 point review of systems is otherwise negative aside from elements mentioned in the history of present illness. Source: Patient Exam Limitations: No limitations - Personal History Current Tetanus/Diphtheria Vaccine: No Tetanus Vaccine Date: no vaccines in past 10 yrs - Medical/Surgical History Hx Asthma: No Hx Chronic Respiratory Disease: No Hx Diabetes: No Hx Cardiac Disease: Yes Hx Renal Disease: No Hx Cirrhosis: No Hx Alcoholism: Yes Hx HIV/AIDS: No Hx Splenectomy or Spleen Trauma: No Other PMH: PMHx: Alcoholism, ddd, osteoarthritis, scoliosis, heart murmer, a-fib , C difficile-Dec 2015. PSHx: tonsillectomy - Social History Smoking Status: Never smoked - Physical Exam Exam: General Appearance: Alert, tremulous Eyes: Pupils equal and round no pallor or injection ENT, Mouth: Mucous membranes moist Respiratory: There are no retractions, lungs are clear to auscultation Cardiovascular: Irregular consistent with known fibrillation Gastrointestinal: Abdomen is soft and nontender, no masses, bowel sounds normal Neurological: A&O, normal motor function, normal sensory exam, normal cranial nerves Skin: Warm and dry, no rashes Musculoskeletal: Neck is supple nontender Extremities: symmetrical, full range of motion Constitutional: Initial Vital Signs Temperature (C) 36.9 C 07/28/16 17:25 Heart Rate 122 H 07/28/16 17:25 Respiratory Rate 28 H 07/28/16 17:25 Blood Pressure 154/103 H 07/28/16 17:25 O2 Sat (%) 94 07/28/16 17:25 O2 Delivery Mode Room Air Allergies/Adverse Reactions: Sulfa (Sulfonamide Antibiotics) Allergy (Mild, Verified 07/28/16 17:24) Rash Home Medications: Medication Instructions Recorded Sertraline HCl [Zoloft 50mg (*)] 75 mg PO DAILY 03/14/16 Diltiazem Xr [Dilacor Xr] 240 mg PO DAILY #30 cap 04/24/16 Medical Decision Making - Diagnostics EKG Interpretation: EKG: Complete interpretation has been separately recorded in the [employer] archive. Summary impression: Sinus rhythm ED Course/Re-evaluation: The patient had an IV established. She received a L of normal saline. She received 4 mg of IV Zofran. She received 1 mg of IV Ativan. The patient presents to the ED with symptoms consistent with alcohol withdrawal. She was evaluated at 7:30 p.m. and is feeling much better. She has a very low CIWA score at this point time. She would like to be discharged home. She will be provided a take home pack of Zofran and Librium. The patient understands return to the ED for worsening symptoms or other concerns. Differential Diagnosis: Differential diagnosis considered includes alcohol withdrawal, dehydration, metabolic abnormality - Data Points Laboratory Results: Laboratory Results 07/28/16 18:10 07/28/16 18:10 07/28/16 07/28/16 07/28/16 18:10 18:10 17:40 WBC REJ RBC REJ Hgb REJ Hct REJ MCV REJ MCH REJ MCHC REJ RDW REJ Plt Count REJ MPV REJ Neut % (Auto) REJ Lymph % (Auto) REJ [place] % (Auto) REJ Eos % (Auto) REJ Baso % (Auto) REJ Nucleat RBC Rel Count REJ Absolute Neuts (auto) REJ Absolute Lymphs (auto) REJ Absolute Monos (auto) REJ Absolute Eos (auto) REJ Absolute Basos (auto) REJ Absolute Nucleated RBC REJ Immature Gran % REJ Immature Gran # REJ Sodium 138 mEq/L mEq/L REJ (134-144) Potassium 3.8 mEq/L mEq/L Not Reported (3.5-5.2) Chloride 104 mEq/L mEq/L Not Reported (97-110) Carbon Dioxide 20 mEq/l L mEq/l Not Reported (-) Anion Gap 14 mEq/L mEq/L Not Reported (8-16) BUN 6 mg/dL L mg/dL Not Reported (7-23) Creatinine 0.6 mg/dL mg/dL Not Reported (0.6-1.0) Estimated GFR > 60 Not Reported Glucose 113 mg/dL H mg/dL Not Reported (70-100) Calcium 8.8 mg/dL mg/dL Not Reported (8.5-10.4) 07/28/16 17:40 WBC 4.81 10^3/uL 10^3/uL (3.80-9.50) RBC 4.66 10^6/uL 10^6/uL (4.18-5.33) Hgb 15.9 g/dL g/dL (12.6-16.3) Hct 45.8 % % (38.0-47.0) MCV 98.3 fL fL (81.5-99.8) MCH 34.1 pg pg (27.9-34.1) MCHC 34.7 g/dL g/dL (32.4-36.7) RDW 15.1 % % (11.5-15.2) Plt Count 164 10^3/uL 10^3/uL (150-400) MPV 10.2 fL fL (8.7-11.7) Neut % (Auto) 76.6 % H % (39.3-74.2) Lymph % (Auto) 16.2 % % (15.0-45.0) [place] % (Auto) 6.0 % % (4.5-13.0) Eos % (Auto) 0.2 % L % (0.6-7.6) Baso % (Auto) 0.4 % % (0.3-1.7) Nucleat RBC Rel Count 0.0 % % (0.0-0.2) Absolute Neuts (auto) 3.68 10^3/uL 10^3/uL (1.70-6.50) Absolute Lymphs (auto) 0.78 10^3/uL L 10^3/uL (1.00-3.00) Absolute Monos (auto) 0.29 10^3/uL L 10^3/uL (0.30-0.80) Absolute Eos (auto) 0.01 10^3/uL L 10^3/uL (0.03-0.40) Absolute Basos (auto) 0.02 10^3/uL 10^3/uL (0.02-0.10) Absolute Nucleated RBC 0.00 10^3/uL 10^3/uL (0-0.01) Immature Gran % 0.6 % % (0.0-1.1) Immature Gran # 0.03 10^3/uL 10^3/uL (0.00-0.10) Sodium Potassium Chloride Carbon Dioxide Anion Gap BUN Creatinine Estimated GFR Glucose Calcium Medications Given: Discontinued Medications Sodium Chloride (Ns) 1,000 mls @ 0 mls/hr IV ONCE ONE PRN Reason: Wide Open Stop: 07/28/16 17:35 Last Admin: 07/28/16 17:50 Dose: 1,000 mls Lorazepam (Ativan Injection) 1 mg IVP EDNOW ONE Stop: 07/28/16 17:35 Last Admin: 07/28/16 17:50 Dose: 1 mg Ondansetron HCl (Zofran) 4 mg IVP EDNOW ONE Stop: 07/28/16 17:35 Last Admin: 07/28/16 17:50 Dose: 4 mg Departure - Departure Disposition: Home, Routine, Self-Care Clinical Impression: Alcohol withdrawal Condition: Good Instructions: Alcohol Withdrawal (ED) Additional Instructions: 1. Zofran as needed for nausea. 2. Librium 1 tablet every 6 hours as needed for symptoms of alcohol withdrawal. 3. Please return to the ED for worsening symptoms, pain, vomiting or other concerns. Referrals: Harriet Nelson MD [Primary Care Provider] - As per Instructions
[2016-07-28 17:55] LABS: % IMMATURE GRANULYOCYTES 0.6 % (0.0-1.1); ABSOLUTE IMMATURE GRANULOCYTES 0.03 10^3/uL (0.00-0.10); ADD DIFF? NO; ADD MORPH? NO; ADD SCAN? NO; ATYPICAL LYMPHOCYTE FLAG 0 (0-99); FRAGMENT RBC FLAG 0 (0-99); HEMATOCRIT 45.8 % (38.0-47.0); HEMOGLOBIN 15.9 g/dL (12.6-16.3); LEFT SHIFT FLG 0 (0-99); LIPEMIA HEMOLYSIS FLAG 90 (0-99); MEAN CELL HEMOGLOBIN 34.1 pg (27.9-34.1); MEAN CELL HEMOGLOBIN CONCENTR. 34.7 g/dL (32.4-36.7); MEAN CELL VOLUME 98.3 fL (81.5-99.8); MEAN PLATELET VOLUME 10.2 fL (8.7-11.7); PLATELET CLUMPS FLAG 0 (0-99); PLATELET COUNT 164 10^3/uL (150-400); RED BLOOD CELL COUNT 4.66 10^6/uL (4.18-5.33); RED CELL DISTRIBUTION WIDTH 15.1 % (11.5-15.2)
--- NOTE | 2016-07-28 18:25 | CPEKG ---
Heart Rate: 99 RR Interval: 606 P-R Interval: 188 QRSD Interval: 82 QT Interval: 388 QTC Interval: 498 P [place]: 60 QRS [place]: -1 T Wave [place]: 11 EKG Severity - BORDERLINE ECG - EKG Impression: SINUS RHYTHM EKG Impression: LOW VOLTAGE THROUGHOUT EKG Impression: BORDERLINE PROLONGED QT INTERVAL Electronically Signed By: Jose Torres 28-Jul-2016 18:37:45
[2016-07-28 18:32] LABS: ANION GAP 14 mEq/L (8-16); CALCIUM 8.8 mg/dL (8.5-10.4); CARBON DIOXIDE 20 mEq/l (22-31); CHLORIDE 104 mEq/L (97-110); CREATININE 0.6 mg/dL (0.6-1.0); GLOMERULAR FILTRATION RATE > 60; GLUCOSE 113 mg/dL (70-100); POTASSIUM 3.8 mEq/L (3.5-5.2); SODIUM 138 mEq/L (134-144)
[2016-07-28 18:59] VITALS: RESP 18
[2016-07-28] MEDS ORDERED: CHLORDIAZEPOXIDE 25MG PREPK#6 BTL TAKEHOME ONE (19:21)
[2016-07-28] MEDS ORDERED: ONDANSETRON 4MG PREPACK#2 BTL TAKEHOME ONE (19:21)
[2016-07-28 19:46] VITALS: BP 158/100; PULSE 95; TEMP 97.9; O2SAT 96
== END 2016-07-28 19:46 | disposition home or self-care (01) ==
DX: F10.239 Alcohol dependence with withdrawal, unspecified (principal)
CPT/HCPCS: 96374; J2060; J2405

== ENCOUNTER 2016-08-19 03:42 | Emergency (ER) | payer MEDICAID ==
[2016-08-19] MEDS ORDERED: ONDANSETRON 4 MG/2 ML VIAL ONE (03:46)
[2016-08-19] MEDS ORDERED: NS 1,000 ML IV ONE (04:00)
[2016-08-19] MEDS ORDERED: LORazepam 2 MG/ML INJ IVP ONE (04:00)
[2016-08-19] MEDS ORDERED: ONDANSETRON 4 MG/2 ML VIAL IVP ONE ×2 (04:00→04:57)
--- NOTE | 2016-08-19 04:02 | EDPHY ---
H & P Stated Complaint: N/V since 08/18 morning; epigastric "aching"; ETOH withdrawal ( 08/17) Time Seen by Provider: 08/19/16 03:55 HPI/ROS: CHIEF COMPLAINT: Alcohol withdrawal HISTORY OF PRESENT ILLNESS: The patient is a 61-year-old female who comes to emergency department complaining of alcohol withdrawal, tremors, nausea and vomiting. No diarrhea. No fever. She states that her last drink was about 36 hours ago. She is trying to stop. She has been seen here multiple times for the same. She denies any abdominal pain. She denies headache. She denies shortness of breath or chest pain. REVIEW OF SYSTEMS: Constitutional: denies: chills, fever, recent illness, recent injury EENTM: denies: blurred vision, double vision, nose congestion Respiratory: denies: cough, shortness of breath Cardiac: denies: chest pain, irregular heart rate, lightheadedness, palpitations Gastrointestinal/Abdominal: See HPI Genitourinary: denies: dysuria, frequency, hematuria, pain Musculoskeletal: denies: joint pain, muscle pain Skin: denies: lesions, rash, jaundice, bruising Neurological: denies: headache, numbness, paresthesia, tingling, dizziness, weakness Hematologic/Lymphatic: denies: blood clots, easy bleeding, easy bruising Immunologic/allergic: denies: HIV/AIDS, transplant EXAM: GENERAL: Tremors, mild distress HEAD: Atraumatic, normocephalic. EYES: Pupils equal round and reactive to light, extraocular movements intact, sclera anicteric, conjunctiva are normal. ENT: TMs normal, nares patent, oropharynx clear without exudates. Moist mucous membranes. NECK: Normal range of motion, supple without lymphadenopathy or JVD. LUNGS: Breath sounds clear to auscultation bilaterally and equal. No wheezes rales or rhonchi. HEART: Regular rate and rhythm without murmurs, rubs or gallops. ABDOMEN: Soft, nontender, normoactive bowel sounds. No guarding, no rebound. No masses appreciated. BACK: No CVA tenderness, no spinal tenderness, step-offs or deformities EXTREMITIES: Normal range of motion, no pitting or edema. No clubbing or cyanosis. NEUROLOGICAL: Cranial nerves II through XII grossly intact. Normal speech, normal gait. 5/5 strength, normal movement in all extremities, normal sensation PSYCH: Normal mood, normal affect. SKIN: Warm, dry, normal turgor, no visible rashes or lesions. Source: Patient Exam Limitations: No limitations - Personal History Current Tetanus/Diphtheria Vaccine: Yes Current Tetanus Diphtheria and Acellular Pertussis (TDAP): Yes Tetanus Vaccine Date: no vaccines in past 10 yrs - Medical/Surgical History Hx Asthma: No Hx Chronic Respiratory Disease: No Hx Diabetes: No Hx Cardiac Disease: Yes Hx Renal Disease: No Hx Cirrhosis: No Hx Alcoholism: Yes Hx HIV/AIDS: No Hx Splenectomy or Spleen Trauma: No Other PMH: PMHx: Alcoholism, degenerative disc disease, osteoarthritis, scoliosis, heart murmur, a-fib, C difficile-Dec 2015, hx withdrawal sz? PSHx: tonsillectomy - Family History Significant Family History: No pertinent family hx - Social History Smoking Status: Never smoked Alcohol Use: Heavy Constitutional: Initial Vital Signs Temperature (C) 36.9 C 08/19/16 03:44 Heart Rate 101 H 08/19/16 03:44 Respiratory Rate 20 08/19/16 03:44 Blood Pressure 158/102 H 08/19/16 03:44 O2 Sat (%) 97 08/19/16 03:44 O2 Delivery Mode Room Air O2 (L/minute) 2 Allergies/Adverse Reactions: Sulfa (Sulfonamide Antibiotics) Allergy (Mild, Verified 07/28/16 17:24) Rash Home Medications: Medication Instructions Recorded Sertraline HCl [Zoloft 50mg (*)] 75 mg PO DAILY 03/14/16 Diltiazem Xr [Dilacor Xr] 240 mg PO DAILY #30 cap 04/24/16 Medical Decision Making ED Course/Re-evaluation: 5:15 a.m. the patient is feeling much better. She is no longer nauseous. She is no longer tremulous. She is asking to go home. Will send her with a take- home pack of Librium. She is trying to stop drinking. She refuses to go to the alcohol recovery Center. She states that it is a "joke". We discussed indications for returning. Differential Diagnosis: Partial list of the Differential diagnosis considered include but were not limited to; alcohol withdrawal, vomiting, dehydration and although unlikely based on the history and physical exam, I also considered infection, head injury , surgical abdomen. I discussed these differential diagnoses and the plan with the patient as well as the usual and expected course. The patient understands that the diagnosis is provisional and that in medicine we are not always correct and that further workup is often warranted. Usual and customary warnings were given. All of the patient's questions were answered. The patient was instructed to return to the emergency department should the symptoms at all worsen or return, otherwise to followup with the physician as we discussed. - Data Points Medications Given: Discontinued Medications Chlordiazepoxide (Librium 25 Mg Prepack#6) 1 btl TAKEHOME EDNOW ONE Stop: 08/19/16 05:17 Last Admin: 08/19/16 05:27 Dose: 1 btl Sodium Chloride (Ns) 1,000 mls @ 0 mls/hr IV ONCE ONE PRN Reason: Wide Open Stop: 08/19/16 04:01 Last Admin: 08/19/16 04:15 Dose: 1,000 mls Lorazepam (Ativan Injection) 2 mg IVP EDNOW ONE Stop: 08/19/16 04:01 Last Admin: 08/19/16 04:15 Dose: 2 mg Ondansetron HCl (Zofran) 4 mg IVP EDNOW ONE Stop: 08/19/16 04:01 Last Admin: 08/19/16 04:15 Dose: 4 mg Ondansetron HCl (Zofran) 4 mg IVP EDNOW ONE Stop: 08/19/16 04:58 Last Admin: 08/19/16 04:58 Dose: 4 mg Departure - Departure Disposition: Home, Routine, Self-Care Clinical Impression: Nausea and vomiting in adult Alcohol withdrawal Qualifiers: Complication of substance-induced condition: uncomplicated Qualified Code(s): F10.230 - Alcohol dependence with withdrawal, uncomplicated Condition: Fair Instructions: Chlordiazepoxide (By mouth), Alcohol Withdrawal (ED) Referrals: Harriet Nelson MD [Primary Care Provider] - As per Instructions
[2016-08-19 04:58] VITALS: RESP 16; O2SAT 96
[2016-08-19] MEDS ORDERED: CHLORDIAZEPOXIDE 25MG PREPK#6 BTL TAKEHOME ONE (05:16)
[2016-08-19 05:29] VITALS: BP 123/81; PULSE 80; TEMP 98.1
== END 2016-08-19 05:37 | disposition home or self-care (01) ==
DX: F10.230 Alcohol dependence with withdrawal, uncomplicated (principal); R11.2 Nausea with vomiting, unspecified
CPT/HCPCS: 96374; J2060; J2405

== ENCOUNTER 2016-08-29 19:36 | Emergency (ER) | payer MEDICAID ==
--- NOTE | 2016-08-29 20:05 | EDPHY ---
H & P Stated Complaint: vomiting x 12 hrs, dizzy Time Seen by Provider: 08/29/16 20:04 - Personal History Tetanus Vaccine Date: no vaccines in past 10 yrs - Medical/Surgical History Hx Asthma: No Hx Chronic Respiratory Disease: No Hx Diabetes: No Hx Cardiac Disease: Yes Hx Renal Disease: No Hx Cirrhosis: No Hx Alcoholism: Yes Hx HIV/AIDS: No Hx Splenectomy or Spleen Trauma: No Other PMH: PMHx: Alcoholism, degenerative disc disease, osteoarthritis, scoliosis, heart murmur, a-fib, C difficile-Dec 2015, hx withdrawal sz? PSHx: tonsillectomy - Social History Smoking Status: Never smoked Constitutional: Initial Vital Signs Temperature (C) 37.1 C 08/29/16 19:45 Heart Rate 112 H 08/29/16 19:45 Respiratory Rate 20 08/29/16 19:45 Blood Pressure 146/94 H 08/29/16 19:45 O2 Sat (%) 96 08/29/16 19:45 Allergies/Adverse Reactions: Sulfa (Sulfonamide Antibiotics) Allergy (Mild, Verified 08/29/16 19:44) Rash Home Medications: Medication Instructions Recorded Sertraline HCl [Zoloft 50mg (*)] 75 mg PO DAILY 03/14/16 Diltiazem Xr [Dilacor Xr] 240 mg PO DAILY #30 cap 04/24/16 Medical Decision Making ED Course/Re-evaluation: CHIEF COMPLAINT: Nausea, vomiting. HISTORY OF PRESENT ILLNESS: The patient is a 61-year-old alcoholic female who presents with 12 hours of nausea and vomiting. She does admit to binge drinking last night. She has never seized from alcohol withdrawal but vomiting is her typical withdrawal symptom. She denies fever, diarrhea, or other complaints. REVIEW OF SYSTEMS: A 10 point review of systems was performed and is negative with the exception of the elements mentioned in the history of present illness. PHYSICAL EXAM: HR, BP, O2 Sat, RR. Temp noted General Appearance: Alert, well hydrated, appropriate, and non-toxic appearing. Head: Atraumatic without scalp tenderness or obvious injury Eyes: Pupils equal, round, reactive to light and accommodation, EOMI, no trauma , no injection. Ears: Clear bilaterally, no perforation, normal landmarks Nose: Atraumatic, no rhinorrhea, clear. Throat: There is no erythema or exudates, no lesions, normal tonsils, mucus membranes moist. Neck: Supple, 2+ carotid upstroke, nontender, no lymphadenopathy. Respiratory: No retractions, no distress, no wheezes, and no accessory muscle use. Lungs are clear to auscultation bilaterally. Cardiovascular: Regular rate and rhythm, no murmurs, rubs, or gallops. Bilateral carotid, radial, dorsalis pedis, and posterior tibial pulses intact. Good capillary refill all extremities. Gastrointestinal: Abdomen is soft, nontender, non-distended, no masses, no rebound, no guarding, no peritoneal signs. Musculoskeletal: Normal active ROM of all extremities, atraumatic. Neurological: Alert, appropriate, and interactive. The patient has normal DTRs and non-focal cranial nerves, motor, sensory, and cerebellar exam. Skin: No rashes, good turgor, no nodules on palpation. Past medical history: Degenerative disc disease, osteoarthritis, scoliosis, heart murmur, a-fib, C difficile-Dec 2015. Past surgical history: Tonsillectomy. Family history: N/A. Social history: Alcoholism. DIFFERENTIAL DIAGNOSIS: The differential diagnosis for the patient's nausea and vomiting included but was not limited to gastroenteritis, gastritis, appendicitis, and medication side effect. MEDICAL DECISION MAKIN-year-old alcoholic female presents with 12 hours of nausea and vomiting secondary to an alcohol binge last night. I offered rehab treatment but she declined. An IV was established. We will rehydrate her with 2L IV saline. 4mg IV Zofran and 1mg IV Ativan administered. she will be discharged after PO trial. 2048: Reassessed patient. She is feeling better and is ready to go home. I will give her an Ativan take home pack to reduce withdrawal symptoms. She is comfortable with this plan. - Data Points Medications Given: Discontinued Medications Sodium Chloride (Ns) 1,000 mls @ 0 mls/hr IV ONCE ONE PRN Reason: Wide Open Stop: 08/29/16 20:09 Last Admin: 08/29/16 20:00 Dose: 1,000 mls Lorazepam (Ativan Injection) 1 mg IVP EDNOW ONE Stop: 08/29/16 20:08 Last Admin: 08/29/16 20:10 Dose: 1 mg Ondansetron HCl (Zofran) 4 mg IVP EDNOW ONE Stop: 08/29/16 20:08 Last Admin: 08/29/16 20:15 Dose: 4 mg Departure - Departure Disposition: Home, Routine, Self-Care Clinical Impression: Alcohol withdrawal Qualifiers: Complication of substance-induced condition: uncomplicated Qualified Code(s): F10.230 - Alcohol dependence with withdrawal, uncomplicated Condition: Good Instructions: Alcohol Withdrawal (ED), Lorazepam (By mouth) Additional Instructions: Drink plenty of fluids. Advance diet slowly as tolerable. return for any serious worsening of condition. Referrals: [facility] [Outside] - Follow Up Only If Needed Report Scribed for: Otis Tom Report Scribed by: Sonu Shah Date of Report: 08/29/16 Time of Report: 20:10
[2016-08-29] MEDS ORDERED: ONDANSETRON 4 MG/2 ML VIAL IVP ONE (20:07)
[2016-08-29] MEDS ORDERED: LORazepam 2 MG/ML INJ IVP ONE (20:07)
[2016-08-29] MEDS ORDERED: NS 1,000 ML IV ONE ×2 (20:08)
[2016-08-29] MEDS ORDERED: LORazepam 2 MG/ML INJ ONE (20:08)
[2016-08-29] MEDS ORDERED: LORAZEPAM 1 MG PREPACK#4 BTL TAKEHOME ONE (20:50)
[2016-08-29 21:08] VITALS: BP 153/84; PULSE 102; RESP 18; TEMP 99; O2SAT 92
== END 2016-08-29 21:08 | disposition home or self-care (01) ==
DX: F10.230 Alcohol dependence with withdrawal, uncomplicated (principal)
CPT/HCPCS: 96374; J2060; J2405

== ENCOUNTER 2016-09-07 01:11 | Emergency (ER) | payer MEDICAID ==
[2016-09-07 01:28] VITALS: TEMP 98.8
[2016-09-07] MEDS ORDERED: ONDANSETRON 4 MG/2 ML VIAL ONE (01:30)
[2016-09-07] MEDS ORDERED: ONDANSETRON 4 MG/2 ML VIAL IVP ONE ×2 (01:53→02:30)
[2016-09-07] MEDS ORDERED: NS 1,000 ML IV ONE ×3 (01:53→05:21)
[2016-09-07] MEDS ORDERED: LORazepam 2 MG/ML INJ IVP ONE ×2 (01:53→05:20)
[2016-09-07] MEDS ORDERED: MAGNESIUM SULF 2 GM/WATER 50 ML IV ONE (02:00)
[2016-09-07 02:25] LABS: ALANINE AMINOTRANSFERASE 84 IU/L (9-52); ALBUMIN 4.4 g/dL (3.5-5.0); ALKALINE PHOSPHATASE 189 IU/L (38-126); ANION GAP 22 mEq/L (8-16); ASPARTATE AMINOTRANSFERASE 244 IU/L (14-46); BILIRUBIN-CONJUGATED 0.6 mg/dL (0.0-0.5); BILIRUBIN-UNCONJUGATED 1.4 mg/dL (0.0-1.1); CALCIUM 8.9 mg/dL (8.5-10.4); CARBON DIOXIDE 16 mEq/l (22-31); CHLORIDE 103 mEq/L (97-110); CREATININE 0.6 mg/dL (0.6-1.0); GLOMERULAR FILTRATION RATE > 60; GLUCOSE 79 mg/dL (70-100); POTASSIUM 4.2 mEq/L (3.5-5.2); SODIUM 141 mEq/L (134-144); TOTAL PROTEIN 6.9 g/dL (6.3-8.2)
[2016-09-07 02:48] LABS: % IMMATURE GRANULYOCYTES 0.7 % (0.0-1.1); ABSOLUTE IMMATURE GRANULOCYTES 0.02 10^3/uL (0.00-0.10); ADD DIFF? NO; ADD MORPH? NO; ADD SCAN? NO; ATYPICAL LYMPHOCYTE FLAG 0 (0-99); FRAGMENT RBC FLAG 0 (0-99); HEMOGLOBIN 13.4 g/dL (12.6-16.3); LEFT SHIFT FLG 0 (0-99); LIPEMIA HEMOLYSIS FLAG 90 (0-99); MEAN CELL HEMOGLOBIN 34.6 pg (27.9-34.1); MEAN CELL HEMOGLOBIN CONCENTR. 34.4 g/dL (32.4-36.7); MEAN CELL VOLUME 100.8 fL (81.5-99.8); MEAN PLATELET VOLUME 10.5 fL (8.7-11.7); PLATELET CLUMPS FLAG 0 (0-99); PLATELET COUNT 76 10^3/uL (150-400); RED BLOOD CELL COUNT 3.87 10^6/uL (4.18-5.33); RED CELL DISTRIBUTION WIDTH 13.3 % (11.5-15.2)
[2016-09-07] MEDS ORDERED: D5W NS 1,000 ML IV SCH (03:15)
--- NOTE | 2016-09-07 05:18 | EDPHY ---
H & P Stated Complaint: NAUSEA VOMITING FOR PAST 13 HRS SINCE UNABLE TO DRINK ETOH- WITHDRAWL Time Seen by Provider: 09/07/16 01:52 HPI/ROS: HPI The patient presents with nausea and vomiting for the last 13 hours, unable to eat or drink anything. She uses alcohol chronically, about a pt of hard alcohol a day and last had a drink of about 24 hours ago. She denies any abdominal pain. She says her vomiting is nonbloody, nonbilious. She has had several similar episodes before. She also feels somewhat tremulous because she has been unable to drink alcohol. She has had multiple visits to the emergency room for similar.. REVIEW OF SYSTEMS Constitutional: No fever, no chills. Eyes: No discharge. ENT: No sore throat. Cardiovascular: No chest pain, no palpitations. Respiratory: No cough, no shortness of breath. Gastrointestinal: No abdominal pain, positive for vomiting. Genitourinary: No hematuria. Musculoskeletal: No back pain. Skin: No rashes. Neurological: No headache. PMHx: Atrial fibrillation, recurrent alcoholic pancreatitis Soc Hx: Chronic alcohol abuse, lives at home PHYSICAL General Appearance: Alert, no distress Eyes: Pupils equal and round no pallor or injection ENT, Mouth: Mucous membranes dry Respiratory: There are no retractions, lungs are clear to auscultation Cardiovascular: Tachycardic with regular rhythm Gastrointestinal: Abdomen is soft and non-tender, no masses, bowel sounds normal Neurological: A&O, moves all extremities, hand tremor is present Skin: Warm and dry, no rashes Musculoskeletal: Neck is supple non tender Extremities: symmetrical, full range of motion Psychiatric: Patient is oriented X 3, there is no agitation Source: Patient Exam Limitations: No limitations - Personal History Current Tetanus/Diphtheria Vaccine: Yes Current Tetanus Diphtheria and Acellular Pertussis (TDAP): Yes Tetanus Vaccine Date: no vaccines in past 10 yrs - Medical/Surgical History Hx Asthma: No Hx Chronic Respiratory Disease: No Hx Diabetes: No Hx Cardiac Disease: Yes Hx Renal Disease: No Hx Cirrhosis: No Hx Alcoholism: Yes Hx HIV/AIDS: No Hx Splenectomy or Spleen Trauma: No Other PMH: PMHx: Alcoholism, degenerative disc disease, osteoarthritis, scoliosis, heart murmur, a-fib, C difficile-Dec 2015, hx withdrawal sz? PSHx: tonsillectomy - Social History Smoking Status: Never smoked Constitutional: Initial Vital Signs Temperature (C) 37.1 C 09/07/16 01:26 Heart Rate 112 H 09/07/16 01:26 Respiratory Rate 23 H 09/07/16 01:26 Blood Pressure 117/101 H 09/07/16 01:26 O2 Sat (%) 97 09/07/16 01:26 O2 Delivery Mode Nasal Cannula O2 (L/minute) 2 Allergies/Adverse Reactions: Sulfa (Sulfonamide Antibiotics) Allergy (Mild, Verified 09/07/16 01:28) Rash Home Medications: Medication Instructions Recorded Sertraline HCl [Zoloft 50mg (*)] 75 mg PO DAILY 03/14/16 Diltiazem Xr [Dilacor Xr] 240 mg PO DAILY #30 cap 04/24/16 Medical Decision Making ED Course/Re-evaluation: In the emergency room, the patient was given IV fluids and Ativan with improvement in her symptoms. Labs were checked and revealed what appears to be alcoholic ketoacidosis, elevated liver tests similar to previous, and an elevated lipase consistent with pancreatitis. She was given D5 NS as well and antiemetics. Her abdominal exam continued to be benign. She tried drinking some juice and vomited again. She was given more fluids, and Reglan. She required an additional dose of Ativan. On repeat p.o. challenge she was able to tolerate juice and crackers. She will be discharged home and I will give her short course of Zofran. Differential Diagnosis: This is a 61-year-old female with chronic alcohol abuse, history of alcoholic pancreatitis, atrial fibrillation who presents from home with 12 hours of nausea and vomiting. On exam, she is slightly tachycardic though in a normal sinus rhythm. She appears slightly dehydrated and her abdominal exam is benign. She is exhibiting signs of alcohol withdrawal with a hand tremor. Differential diagnosis includes alcohol induced pancreatitis, alcohol withdrawal , gastroenteritis, gastritis. - Data Points Laboratory Results: Laboratory Results 09/07/16 02:43 09/07/16 02:00 09/07/16 09/07/16 09/07/16 04:29 02:43 02:00 WBC 2.97 10^3/uL L 10^3/uL (3.80-9.50) RBC 3.87 10^6/uL L 10^6/uL (4.18-5.33) Hgb 13.4 g/dL g/dL (12.6-16.3) POC Hgb 13.9 gm/dL gm/dL (12.3-15.9) Hct 39.0 % % (38.0-47.0) POC Hct 41 % % (35.5-47.5) MCV 100.8 fL H fL (81.5-99.8) MCH 34.6 pg H pg (27.9-34.1) MCHC 34.4 g/dL g/dL (32.4-36.7) RDW 13.3 % % (11.5-15.2) Plt Count 76 10^3/uL L 10^3/uL (150-400) MPV 10.5 fL fL (8.7-11.7) Neut % (Auto) 82.5 % H % (39.3-74.2) Lymph % (Auto) 10.4 % L % (15.0-45.0) [place] % (Auto) 5.7 % % (4.5-13.0) Eos % (Auto) 0.0 % L % (0.6-7.6) Baso % (Auto) 0.7 % % (0.3-1.7) Nucleat RBC Rel Count 0.0 % % (0.0-0.2) Absolute Neuts (auto) 2.45 10^3/uL 10^3/uL (1.70-6.50) Absolute Lymphs (auto) 0.31 10^3/uL L 10^3/uL (1.00-3.00) Absolute Monos (auto) 0.17 10^3/uL L 10^3/uL (0.30-0.80) Absolute Eos (auto) 0.00 10^3/uL L 10^3/uL (0.03-0.40) Absolute Basos (auto) 0.02 10^3/uL 10^3/uL (0.02-0.10) Absolute Nucleated RBC 0.00 10^3/uL 10^3/uL (0-0.01) Immature Gran % 0.7 % % (0.0-1.1) Immature Gran # 0.02 10^3/uL 10^3/uL (0.00-0.10) POC Sodium 137 mEq/L mEq/L (134-144) Sodium 141 mEq/L mEq/L (134-144) POC Potassium 4.0 mEq/L mEq/L (3.3-5.0) Potassium 4.2 mEq/L mEq/L (3.5-5.2) POC Chloride 105 mEq/L mEq/L (96-108) Chloride 103 mEq/L mEq/L (97-110) Carbon Dioxide 16 mEq/l L mEq/l (22-31) Anion Gap 22 mEq/L H mEq/L (8-16) POC BUN 4 mg/dL L mg/dL (7-23) BUN 7 mg/dL mg/dL (7-23) Creatinine 0.6 mg/dL mg/dL (0.6-1.0) POC Creatinine 0.5 mg/dL L mg/dL (0.6-1.2) Estimated GFR > 60 Glucose 79 mg/dL mg/dL (70-100) POC Glucose 230 mg/dL H mg/dL (70-100) Calcium 8.9 mg/dL mg/dL (8.5-10.4) Total Bilirubin 2.0 mg/dL H mg/dL (0.1-1.4) Conjugated Bilirubin 0.6 mg/dL H mg/dL (0.0-0.5) Unconjugated Bilirubin 1.4 mg/dL H mg/dL (0.0-1.1) AST 244 IU/L H IU/L (14-46) ALT 84 IU/L H IU/L (9-52) Alkaline Phosphatase 189 IU/L H IU/L (38-126) Total Protein 6.9 g/dL g/dL (6.3-8.2) Albumin 4.4 g/dL g/dL (3.5-5.0) Lipase 608.0 IU/L H IU/L (23-300) 09/07/16 02:00 WBC TNP RBC TNP Hgb TNP POC Hgb Hct TNP POC Hct MCV TNP MCH TNP MCHC TNP RDW TNP Plt Count TNP MPV TNP Neut % (Auto) TNP Lymph % (Auto) TNP [place] % (Auto) TNP Eos % (Auto) TNP Baso % (Auto) TNP Nucleat RBC Rel Count TNP Absolute Neuts (auto) TNP Absolute Lymphs (auto) TNP Absolute Monos (auto) TNP Absolute Eos (auto) TNP Absolute Basos (auto) TNP Absolute Nucleated RBC TNP Immature Gran % TNP Immature Gran # TNP POC Sodium Sodium POC Potassium Potassium POC Chloride Chloride Carbon Dioxide Anion Gap POC BUN BUN Creatinine POC Creatinine Estimated GFR Glucose POC Glucose Calcium Total Bilirubin Conjugated Bilirubin Unconjugated Bilirubin AST ALT Alkaline Phosphatase Total Protein Albumin Lipase Medications Given: Discontinued Medications Sodium Chloride (Ns) 1,000 mls @ 0 mls/hr IV ONCE ONE PRN Reason: Wide Open Stop: 09/07/16 01:54 Last Admin: 09/07/16 01:40 Dose: 1,000 mls Magnesium Sulfate (Magnesium Sulf 2 Gm (Premix)) 50 mls @ 50 mls/hr IV EDNOW ONE Stop: 09/07/16 02:59 Last Admin: 09/07/16 02:09 Dose: 50 mls Sodium Chloride (Ns) 1,000 mls @ 0 mls/hr IV ONCE ONE PRN Reason: Wide Open Stop: 09/07/16 02:31 Last Admin: 09/07/16 02:30 Dose: 1,000 mls Sodium Chloride (Ns) 1,000 mls @ 0 mls/hr IV ONCE ONE PRN Reason: Wide Open Stop: 09/07/16 05:22 Last Admin: 09/07/16 05:30 Dose: 1,000 mls Lorazepam (Ativan Injection) 1 mg IVP EDNOW ONE Stop: 09/07/16 01:54 Last Admin: 09/07/16 02:02 Dose: 2 mg Lorazepam (Ativan Injection) 2 mg IVP EDNOW ONE Stop: 09/07/16 05:21 Last Admin: 09/07/16 05:32 Dose: 2 mg Metoclopramide HCl (Reglan Injection) 10 mg IVP EDNOW ONE Stop: 09/07/16 05:20 Last Admin: 09/07/16 05:31 Dose: 10 mg Ondansetron HCl (Zofran) 4 mg IVP EDNOW ONE Stop: 09/07/16 01:54 Last Admin: 09/07/16 01:35 Dose: 4 mg Ondansetron HCl (Zofran) 4 mg IVP EDNOW ONE Stop: 09/07/16 02:31 Last Admin: 09/07/16 02:30 Dose: 4 mg Point of Care Test Results: 09/07/16 04:29 POC Sodium 137 POC Potassium 4.0 POC Chloride 105 POC BUN 4 L POC Creatinine 0.5 L POC Glucose 230 H Departure - Departure Disposition: Home, Routine, Self-Care Clinical Impression: Nausea and vomiting in adult, Alcoholic ketoacidosis Alcohol dependence Qualifiers: Substance use status: uncomplicated Qualified Code(s): F10.20 - Alcohol dependence, uncomplicated Pancreatitis, alcoholic, acute Qualifiers: Acute pancreatitis complication: unspecified Qualified Code(s): K85.20 - Alcohol induced acute pancreatitis without necrosis or infection Condition: Good Instructions: Abuse of Alcohol (ED), Acute Nausea and Vomiting (ED) Referrals: Harriet Nelson MD [Primary Care Provider] - As per Instructions
[2016-09-07] MEDS ORDERED: METOCLOPRAMIDE 10 MG/2 ML VIAL IVP ONE (05:19)
[2016-09-07 05:51] VITALS: PULSE 102; RESP 18; O2SAT 99
[2016-09-07] MEDS ORDERED: ONDANSETRON 4MG PREPACK#2 BTL TAKEHOME ONE (06:40)
[2016-09-07 06:52] VITALS: BP 138/99
== END 2016-09-07 06:50 | disposition home or self-care (01) ==
DX: K85.20 Alcohol induced acute pancreatitis without necrosis or infection (principal); E87.2 Acidosis; F10.20 Alcohol dependence, uncomplicated
CPT/HCPCS: 82947-QW; 96365; J2060; J2405; J2765

== ENCOUNTER 2016-09-11 01:20 | Emergency (ER) | payer MEDICAID ==
[2016-09-11] MEDS ORDERED: ONDANSETRON 4 MG/2 ML VIAL IVP ONE (01:33)
[2016-09-11] MEDS ORDERED: NS 1,000 ML IV ONE ×2 (01:33→02:30)
[2016-09-11] MEDS ORDERED: ONDANSETRON 4 MG/2 ML VIAL ONE (01:35)
[2016-09-11 01:46] LABS: % IMMATURE GRANULYOCYTES 0.3 % (0.0-1.1); ABSOLUTE IMMATURE GRANULOCYTES 0.02 10^3/uL (0.00-0.10); ADD DIFF? NO; ADD MORPH? NO; ADD SCAN? NO; ATYPICAL LYMPHOCYTE FLAG 0 (0-99); FRAGMENT RBC FLAG 0 (0-99); HEMATOCRIT 43.8 % (38.0-47.0); HEMOGLOBIN 15.3 g/dL (12.6-16.3); LEFT SHIFT FLG 0 (0-99); LIPEMIA HEMOLYSIS FLAG 90 (0-99); MEAN CELL HEMOGLOBIN 34.5 pg (27.9-34.1); MEAN CELL HEMOGLOBIN CONCENTR. 34.9 g/dL (32.4-36.7); MEAN CELL VOLUME 98.9 fL (81.5-99.8); MEAN PLATELET VOLUME 10.4 fL (8.7-11.7); PLATELET CLUMPS FLAG 0 (0-99); PLATELET COUNT 92 10^3/uL (150-400); RED BLOOD CELL COUNT 4.43 10^6/uL (4.18-5.33); RED CELL DISTRIBUTION WIDTH 12.8 % (11.5-15.2)
--- NOTE | 2016-09-11 01:49 | EDPHY ---
H & P Stated Complaint: N/V, CURTIS HPI/ROS: Chief Complaint: Nausea, vomiting, headache HPI: 61-year-old woman with history of chronic alcoholism, last drink was 2 days ago is presenting with nausea vomiting and worsening headache today. Is not the worst headache of her life. It is gradual in onset. She did not fall down is not hit her head. Has not been able to keep any fluids down. She has also been having diarrhea, multiple loose stools. No hematochezia or melena. No fevers or chills. No chest pain or shortness of breath. No abdominal pain. ROS: 10 point Review of Systems is negative except as noted in the HPI. PMH: Chronic alcoholism, pancreatitis Social History: No smoking, daily heavy alcohol, no recreational drug use Family History: non-contributory Physical Exam: Gen: Awake, Alert, No Distress HEENT: Nose: no rhinorrhea Eyes: PERRLA, EOMI Mouth: Moist mucosa Neck: Supple, no JVD Chest: nontender, lungs clear to auscultation Heart: S1, S2 normal, no murmur Abd: Soft, non-tender, no guarding Back: no CVA tenderness, no midline tenderness Ext: no edema, non-tender, she has contusions of various stages in bilateral upper lower extremities, no focal tenderness. Skin: no rash Neuro: CN II-XII intact, Sensation grossly intact, Strength 5/5 in bilateral upper and lower extremities - Personal History Current Tetanus/Diphtheria Vaccine: Yes Current Tetanus Diphtheria and Acellular Pertussis (TDAP): Yes Tetanus Vaccine Date: 2014 - Medical/Surgical History Hx Asthma: No Hx Chronic Respiratory Disease: No Hx Diabetes: No Hx Cardiac Disease: Yes Hx Renal Disease: No Hx Cirrhosis: No Hx Alcoholism: Yes Hx HIV/AIDS: No Hx Splenectomy or Spleen Trauma: No Other PMH: PMHx: Alcoholism, degenerative disc disease, osteoarthritis, scoliosis, heart murmur, a-fib, C difficile-Dec 2015, hx withdrawal sz? PSHx: tonsillectomy - Social History Smoking Status: Never smoked Constitutional: Initial Vital Signs Temperature (C) 37.3 C 09/11/16 01:26 Heart Rate 103 H 09/11/16 01:26 Respiratory Rate 18 09/11/16 01:26 Blood Pressure 154/105 H 09/11/16 01:26 O2 Sat (%) 97 05/15/17 01:26 O2 Delivery Mode Room Air Allergies/Adverse Reactions: Sulfa (Sulfonamide Antibiotics) Allergy (Mild, Verified 09/11/16 01:26) Rash Home Medications: Medication Instructions Recorded Sertraline HCl [Zoloft 50mg (*)] 75 mg PO DAILY 03/14/16 Diltiazem Xr [Dilacor Xr] 240 mg PO DAILY #30 cap 04/24/16 Medical Decision Making ED Course/Re-evaluation: Patient is improved after IV fluids, Zofran and some Ativan. Patient is tolerating p. o.. Headache has improved significantly with fluids. Abdomen is soft and nontender. Certainly not on a acute findings. Symptoms are consistent with alcohol withdrawal. She has multiple prior presentations for the same. No evidence of acute intra-abdominal or surgical process at this time. Will discharge with follow up with her primary care physician, encouragement to abstain from alcohol, return for any concerns. - Data Points Laboratory Results: Laboratory Results 09/11/16 01:40 09/11/16 01:40 09/11/16 09/11/16 01:40 01:40 WBC 5.97 10^3/uL 10^3/uL (3.80-9.50) RBC 4.43 10^6/uL 10^6/uL (4.18-5.33) Hgb 15.3 g/dL g/dL (12.6-16.3) Hct 43.8 % % (38.0-47.0) MCV 98.9 fL fL (81.5-99.8) MCH 34.5 pg H pg (27.9-34.1) MCHC 34.9 g/dL g/dL (32.4-36.7) RDW 12.8 % % (11.5-15.2) Plt Count 92 10^3/uL L 10^3/uL (150-400) MPV 10.4 fL fL (8.7-11.7) Neut % (Auto) 78.5 % H % (39.3-74.2) Lymph % (Auto) 13.1 % L % (15.0-45.0) [place] % (Auto) 7.0 % % (4.5-13.0) Eos % (Auto) 0.8 % % (0.6-7.6) Baso % (Auto) 0.3 % % (0.3-1.7) Nucleat RBC Rel Count 0.0 % % (0.0-0.2) Absolute Neuts (auto) 4.68 10^3/uL 10^3/uL (1.70-6.50) Absolute Lymphs (auto) 0.78 10^3/uL L 10^3/uL (1.00-3.00) Absolute Monos (auto) 0.42 10^3/uL 10^3/uL (0.30-0.80) Absolute Eos (auto) 0.05 10^3/uL 10^3/uL (0.03-0.40) Absolute Basos (auto) 0.02 10^3/uL 10^3/uL (0.02-0.10) Absolute Nucleated RBC 0.00 10^3/uL 10^3/uL (0-0.01) Immature Gran % 0.3 % % (0.0-1.1) Immature Gran # 0.02 10^3/uL 10^3/uL (0.00-0.10) Sodium 131 mEq/L L mEq/L (134-144) Potassium 3.9 mEq/L mEq/L (3.5-5.2) Chloride 96 mEq/L L mEq/L (97-110) Carbon Dioxide 21 mEq/l L mEq/l (22-31) Anion Gap 14 mEq/L mEq/L (8-16) BUN 5 mg/dL L mg/dL (7-23) Creatinine 0.6 mg/dL mg/dL (0.6-1.0) Estimated GFR > 60 Glucose 97 mg/dL mg/dL (70-100) Calcium 9.4 mg/dL mg/dL (8.5-10.4) Lipase 333.0 IU/L H IU/L (23-300) Ethyl Alcohol < 10 mg/dL mg/dL (0-10) Medications Given: Discontinued Medications Sodium Chloride (Ns) 1,000 mls @ 0 mls/hr IV ONCE ONE PRN Reason: Wide Open Stop: 09/11/16 01:34 Last Admin: 09/11/16 01:40 Dose: 1,000 mls Sodium Chloride (Ns) 1,000 mls @ 0 mls/hr IV ONCE ONE PRN Reason: Wide Open Stop: 09/11/16 02:31 Last Admin: 09/11/16 02:46 Dose: 1,000 mls Ketorolac Tromethamine (Toradol) 15 mg IVP EDNOW ONE Stop: 09/11/16 01:59 Last Admin: 09/11/16 01:58 Dose: 15 mg Ondansetron HCl (Zofran) 4 mg IVP EDNOW ONE Stop: 09/11/16 01:34 Last Admin: 09/11/16 01:45 Dose: 4 mg Departure - Departure Disposition: Home, Routine, Self-Care Clinical Impression: Nausea & vomiting, Dehydration, Alcohol abuse Condition: Good Instructions: Acute Nausea and Vomiting (ED) Additional Instructions: Follow up with primary care physician in 2-3 days for re-evaluation. Please try to abstain from drinking alcohol. Return emergency depart for increasing nausea, vomiting coming fevers, chills, abdominal pain, headache, or any other concerns. Referrals: Harriet Nelson MD [Primary Care Provider] - As per Instructions
[2016-09-11] MEDS ORDERED: KETOROLAC 15 MG/1 ML SDV IVP ONE (01:58)
[2016-09-11] MEDS ORDERED: KETOROLAC 15 MG/1 ML SDV ONE (01:59)
[2016-09-11 02:05] LABS: ANION GAP 14 mEq/L (8-16); CALCIUM 9.4 mg/dL (8.5-10.4); CARBON DIOXIDE 21 mEq/l (22-31); CHLORIDE 96 mEq/L (97-110); CREATININE 0.6 mg/dL (0.6-1.0); ETHANOL SERUM < 10 mg/dL (0-10); GLOMERULAR FILTRATION RATE > 60; GLUCOSE 97 mg/dL (70-100); POTASSIUM 3.9 mEq/L (3.5-5.2); SODIUM 131 mEq/L (134-144)
[2016-09-11] MEDS ORDERED: LORazepam 2 MG/ML INJ IVP ONE (03:47)
[2016-09-11 04:54] VITALS: BP 148/91; PULSE 83; RESP 16; TEMP 99.3; O2SAT 96
== END 2016-09-11 04:53 | disposition home or self-care (01) ==
DX: R11.2 Nausea with vomiting, unspecified (principal); E86.0 Dehydration; F10.10 Alcohol abuse, uncomplicated
CPT/HCPCS: 96374; G0480; J1885; J2060; J2405

== ENCOUNTER 2016-09-22 14:23 | Inpatient (IN) | payer MEDICAID ==
[2016-09-22] MEDS ORDERED: ONDANSETRON DISINTEGRATING 4 MG TAB PO ONE (15:14)
[2016-09-22] MEDS ORDERED: ONDANSETRON 4 MG/2 ML VIAL ONE ×2 (16:03→18:54)
--- NOTE | 2016-09-22 16:26 | EDPHY ---
H & P Time Seen by Provider: 09/22/16 16:24 HPI/ROS: Chief complaint. Vomiting HPI. 61-year-old female with chronic alcoholism presents with vomiting since 1: 00 a.m.. No abdominal pain. Some upper abdominal discomfort that she thinks is from vomiting. Last drink was last night. She is quite shaky. She was seen September 11 for similar symptoms. Patient also tells me she has a headache. No fever. No chest pain. No shortness of breath. ROS Constitutional. Shaky Eyes. no problems with vision ENT. no sore throat, no nasal drainage Cardiovascular. no chest pain Respiratory. no shortness of breath, no cough Abdominal. Upper abdominal pain with vomiting but no diarrhea . no problems urinating MS. no calf pain/swelling, no neck/back pain, no joint pain Skin. no rash Lymph. no swollen glands Neuro. Headache, tremulous Past Medical/Surgical History: Alcoholism, AFib, C difficile, pancreatitis Social History: Single, nonsmoker, recent alcohol Smoking Status: Never smoked Physical Exam: General Appearance: Alert tremulous well-developed female moderate distress vital signs significant for heart rate 102 Eyes: Pupils equal and round no pallor or injection. ENT, Mouth: Mucous membranes are moist. Respiratory: There are no retractions, lungs are clear to auscultation. Cardiovascular: Regular rate and rhythm. Gastrointestinal: Some tenderness upper abdomen. No masses. Normal bowel sounds Neurological: Awake and alert, sensory and motor exams grossly normal. Tremulous Skin: Warm and dry, no rashes. Musculoskeletal: Neck is supple nontender. Extremities symmetrical, full range of motion. Psychiatric: Patient is oriented X 3, there is no agitation. Constitutional: Initial Vital Signs Temperature (C) 37 C 09/22/16 14:25 Heart Rate 102 H 09/22/16 14:25 Respiratory Rate 16 09/22/16 14:25 Blood Pressure 148/88 H 09/22/16 14:25 O2 Sat (%) 95 09/22/16 14:25 O2 Delivery Mode Nasal Cannula O2 (L/minute) 3 Allergies/Adverse Reactions: Sulfa (Sulfonamide Antibiotics) Allergy (Mild, Verified 09/11/16 01:26) Rash Home Medications: Medication Instructions Recorded Sertraline HCl [Zoloft 50mg (*)] 75 mg PO DAILY 03/14/16 Diltiazem Xr [Dilacor Xr] 240 mg PO DAILY #30 cap 04/24/16 Aspirin EC [Aspirin EC 81 mg (*)] 81 mg PO DAILY 09/22/16 Herbals/Supplements -Info Only 1 ea PO DAILY 09/22/16 Medical Decision Making Procedures: IV normal saline, Ativan and Zofran IV On re-evaluation patient is more comfortable and no longer vomiting. She does however continue to have epigastric pain. Her tremulousness is better after the Ativan. Patient and I discussed laboratory evaluation. I have recommended admission. Patient expresses understanding and agreement ED Course/Re-evaluation: Patient is stable and improved Differential Diagnosis: Patient has pancreatitis. I believe her pancreatitis is caused by her chronic alcoholism. She has been vomiting. She is experiencing mild to moderate alcohol withdrawal with quite a bit of tremulousness. I also considered GI bleed however the patient exhibits no signs this. She lives by herself and certainly today would be having a hard time taking care of herself at home. - Data Points Laboratory Results: Laboratory Results 09/22/16 16:00 09/22/16 16:00 Medications Given: Discontinued Medications Acetaminophen (Tylenol) 1,000 mg PO EDNOW ONE Stop: 09/22/16 18:16 Last Admin: 09/22/16 20:25 Dose: 1,000 mg Chlordiazepoxide HCl (Librium) 50 mg PO ONCE ONE Stop: 09/22/16 18:37 Last Admin: 09/22/16 19:05 Dose: 50 mg Sodium Chloride (Ns) 1,000 mls @ 0 mls/hr IV ONCE ONE PRN Reason: Wide Open Stop: 09/22/16 16:34 Last Admin: 09/22/16 16:35 Dose: 1,000 mls Sodium Chloride (Ns) 1,000 mls @ 0 mls/hr IV ONCE ONE PRN Reason: Wide Open Stop: 09/22/16 18:16 Last Admin: 09/22/16 19:00 Dose: 1,000 mls Sodium Chloride (Ns) 1,000 mls @ 3,000 mls/hr IV ONCE ONE Stop: 09/22/16 18:52 Last Admin: 09/22/16 20:25 Dose: 1,000 mls Lorazepam (Ativan Injection) 1 mg IVP EDNOW ONE Stop: 09/22/16 16:34 Last Admin: 09/22/16 16:38 Dose: 1 mg Lorazepam (Ativan Injection) 1 mg IVP EDNOW ONE Stop: 09/22/16 18:16 Last Admin: 09/22/16 19:00 Dose: 1 mg Ondansetron HCl (Zofran Odt) 4 mg PO EDNOW ONE Stop: 09/22/16 15:15 Last Admin: 09/22/16 15:15 Dose: 4 mg Ondansetron HCl (Zofran) 4 mg IVP EDNOW ONE Stop: 09/22/16 16:34 Last Admin: 09/22/16 16:40 Dose: 4 mg Departure - Departure Disposition: [facility] Inpatient Acute Clinical Impression: Pancreatitis Qualifiers: Chronicity: acute Pancreatitis type: alcohol induced Acute pancreatitis complication: unspecified Qualified Code(s): K85.20 - Alcohol induced acute pancreatitis without necrosis or infection Alcohol withdrawal Qualifiers: Complication of substance-induced condition: with unspecified complication Qualified Code(s): F10.239 - Alcohol dependence with withdrawal, unspecified Condition: Fair
[2016-09-22] MEDS ORDERED: NS 1,000 ML IV ONE ×3 (16:33→18:33)
[2016-09-22] MEDS ORDERED: ONDANSETRON 4 MG/2 ML VIAL IVP ONE (16:33)
[2016-09-22] MEDS ORDERED: LORazepam 2 MG/ML INJ IVP ONE ×2 (16:33→18:15)
[2016-09-22 16:39] LABS: % IMMATURE GRANULYOCYTES 0.4 % (0.0-1.1); ABSOLUTE IMMATURE GRANULOCYTES 0.05 10^3/uL (0.00-0.10); ADD DIFF? NO; ADD MORPH? NO; ADD SCAN? NO; ATYPICAL LYMPHOCYTE FLAG 0 (0-99); FRAGMENT RBC FLAG 0 (0-99); HEMATOCRIT 43.1 % (38.0-47.0); HEMOGLOBIN 15.1 g/dL (12.6-16.3); LEFT SHIFT FLG 0 (0-99); LIPEMIA HEMOLYSIS FLAG 90 (0-99); MEAN CELL VOLUME 99.8 fL (81.5-99.8); MEAN PLATELET VOLUME 9.8 fL (8.7-11.7); PLATELET CLUMPS FLAG 0 (0-99); PLATELET COUNT 311 10^3/uL (150-400); RED BLOOD CELL COUNT 4.32 10^6/uL (4.18-5.33); RED CELL DISTRIBUTION WIDTH 12.9 % (11.5-15.2)
[2016-09-22 16:50] LABS: ANION GAP 22 mEq/L (8-16); CALCIUM 9.4 mg/dL (8.5-10.4); CARBON DIOXIDE 15 mEq/l (22-31); CHLORIDE 103 mEq/L (97-110); CREATININE 0.6 mg/dL (0.6-1.0); ETHANOL SERUM < 10 mg/dL (0-10); GLOMERULAR FILTRATION RATE > 60; GLUCOSE 159 mg/dL (70-100); POTASSIUM 4.4 mEq/L (3.5-5.2); SODIUM 140 mEq/L (134-144)
[2016-09-22] MEDS ORDERED: ACETAMINOPHEN 500 MG TAB PO ONE (18:15)
[2016-09-22 18:32] LABS: INR 1.08 (0.83-1.16); PROTIME(PATIENT) 13.9 SEC (12.0-15.0)
[2016-09-22 18:33] LABS: APTT 25.8 SEC (23.0-38.0)
[2016-09-22] MEDS ORDERED: ACETAMINOPHEN 650 MG SUPP PR PRN (18:33)
[2016-09-22 18:35] LABS: ALBUMIN 4.4 g/dL (3.5-5.0); BILIRUBIN,TOTAL 1.7 mg/dL (0.1-1.4); BILIRUBIN-CONJUGATED 0.7 mg/dL (0.0-0.5)
[2016-09-22] MEDS ORDERED: chlordiazePOXIDE 25 MG CAP PO ONE (18:36)
[2016-09-22] MEDS ORDERED: chlordiazePOXIDE 25 MG CAP ONE ×2 (18:54→23:35)
[2016-09-22] MEDS: THIAMINE HCL 500 MG in NS 100 ML IV SCH (19:54)
[2016-09-22] MEDS ORDERED: ACETAMINOPHEN 500 MG TAB ONE (20:29)
[2016-09-22] MEDS: FAMOTIDINE 20 MG/NACL 50 ML IV SCH (21:15)
--- NOTE | 2016-09-22 21:17 | GHP ---
[f rep st] HISTORY AND PHYSICAL DATE OF ADMISSION: 09/22/2016 CHIEF COMPLAINT: Nausea. HISTORY OF PRESENT ILLNESS: A 61-year-old female with a limited past medical history who presents t o the emergency department after developing severe nausea and vomiting the morning of presentation, approximately 1:30 in the morning. Patient notes awaking with severe nausea and nonbloody vomiting with some associated left upper quadrant pain. She was unable to keep normal p.o. down and therefor e, presented to the emergency department. In the ED, she is complaining of left upper quadrant mild epigastric pain, persistent nausea, tremulousness, and some anxiety. She has experienced alcohol w ithdrawal in the past and knows she is beginning to withdraw. Denies any history of hallucinations, intubations, or seizures with her previous alcohol withdrawal. She has had previous episodes of pa ncreatitis. Patient is denying any chest pain, any shortness of breath, any lower extremity, edema, myalgias, rashes. PAST MEDICAL HISTORY: 1. Atrial fibrillation. 2. Depression. 3. Alcohol abuse with history of alcohol withdrawal. SOCIAL HISTORY: Negative for tobacco. Positive for approximately a pint of vodka a day. Denies il licit drugs or marijuana. FAMILY HISTORY: Positive for alcoholism. Patient is full cor, full tube. She has a friend listed as her medical decisionmaker. REVIEW OF SYSTEMS: A 10-point review of systems is negative with the exception of that reported in the HPI. PHYSICAL EXAMINATION: VITAL SIGNS: Blood pressure 148/88, heart rate 102, respiratory rate 16, 95% on room air. 37.0. GENERAL: This is a pleasant female in no acute distress. HEENT: Notable for dry mucous membranes. Eye exam is negative for any icterus. CARDIAC: Patient is tachycardic but r egular. PULMONARY: Clear to auscultation bilaterally. GASTROINTESTINAL: Positive bowel sounds. ABDOMEN: Soft. Patient is mildly tender to palpation in the epigastrium. No rebound or guarding. MUSCULOSKELETAL: Negative for any lower extremity edema. SKIN: Negative for any rashes. NEUROLO GIC: She is tremulous and has tongue fasciculations on examination. She is alert and oriented x3. PSYCHIATRIC: She is pleasant and cooperative on interview and exam. DATA: EKG from earlier this year, which I personally reviewed and interpreted, shows sinus tachycar freddie with normal axis and no acute ST-T changes. LABS: White count 12.7, hematocrit 43, platelets of 311. Creatinine of 0.6, sodium of 140, AST 176 , ALT 77, alkaline phosphatase of 213. Lipase of 943. ASSESSMENT AND PLAN: This is a 61-year-old female presenting with pancreatitis. 1. Acute pancreatitis presumed secondary to alcohol. Will order an ultrasound of her gallbladder. She does have a leukocytosis. Rule out any underlying gallbladder involvement and/or dysfunction. Make the patient n.p.o. Fluid resuscitate with IV normal saline. Treat with IV pain medications a nd follow. 2. Acute alcohol withdrawal. Patient is tremulous with tongue fasciculations. Will initiate a jaydon us of Librium and scheduled through the next 24-48 hours as well as a CIWA protocol. Hopefully, we can keep the patient safely on the floor for her treatment. 3. Sinus tachycardia. Suspect this is likely secondary to withdrawal and volume depletion. Will f ollow after fluid resuscitation and treatment with benzodiazepines. 4. Acute leukocytosis. This could be from pancreatitis. However, neutrophil count is up. I have ordered ultrasound of her right upper quadrant to further look at her gallbladder. She did not have much urinary symptoms to speak of or pulmonary. Will begin with ultrasound. If it continues to tr end up, would look for additional sources of occult infection. This may, however, be simply related to pancreatitis. If she spikes a fever, would need to consider CT of the abdomen to rule out a pse udocyst or possible infection. 5. Atrial fibrillation. Patient is currently rate controlled on her diltiazem. Will continue this with her baby aspirin. 6. Prophylaxis with enoxaparin. DIET: N.p.o. with IV fluids. DISPOSITION: Expecting greater than 2 midnights as patient is presenting with both pancreatitis and alcohol withdrawal. She is certainly at risk for having decompensation of either. Will need close monitoring and aggressive fluid and medications support. I have discussed the case with the emerge ncy room physician. Patient will be triaged to the medical-surgical floor for care. /[id number]/MODL
[2016-09-22] MEDS: NS 1,000 ML IV SCH (22:30)
[2016-09-22] MEDS: ONDANSETRON 4 MG/2 ML VIAL IVP PRN (23:40)
[2016-09-22] MEDS: chlordiazePOXIDE 25 MG CAP PO SCH (23:42)
[2016-09-23] MEDS: ONDANSETRON 4 MG/2 ML VIAL IVP PRN (05:00)
[2016-09-23] MEDS: NS 1,000 ML IV SCH ×2 (05:45→21:31)
[2016-09-23 06:05] LABS: % IMMATURE GRANULYOCYTES 0.7 % (0.0-1.1); ABSOLUTE IMMATURE GRANULOCYTES 0.03 10^3/uL (0.00-0.10); ADD DIFF? NO; ADD MORPH? NO; ADD SCAN? NO; ATYPICAL LYMPHOCYTE FLAG 0 (0-99); FRAGMENT RBC FLAG 0 (0-99); HEMATOCRIT 36.2 % (38.0-47.0); HEMOGLOBIN 12.3 g/dL (12.6-16.3); LEFT SHIFT FLG 0 (0-99); LIPEMIA HEMOLYSIS FLAG 90 (0-99); MEAN CELL HEMOGLOBIN 34.9 pg (27.9-34.1); MEAN CELL VOLUME 102.8 fL (81.5-99.8); MEAN PLATELET VOLUME 9.9 fL (8.7-11.7); PLATELET CLUMPS FLAG 0 (0-99); PLATELET COUNT 124 10^3/uL (150-400); RED BLOOD CELL COUNT 3.52 10^6/uL (4.18-5.33); RED CELL DISTRIBUTION WIDTH 13.2 % (11.5-15.2)
[2016-09-23 06:25] LABS: ANION GAP 6 mEq/L (8-16); CALCIUM 7.6 mg/dL (8.5-10.4); CARBON DIOXIDE 23 mEq/l (22-31); CHLORIDE 105 mEq/L (97-110); CREATININE 0.6 mg/dL (0.6-1.0); GLOMERULAR FILTRATION RATE > 60; GLUCOSE 81 mg/dL (70-100); MAGNESIUM 1.2 mg/dL (1.6-2.3); POTASSIUM 3.9 mEq/L (3.5-5.2); SODIUM 134 mEq/L (134-144)
[2016-09-23] MEDS: THIAMINE HCL 500 MG in NS 100 ML IV SCH (06:45)
[2016-09-23] MEDS: FAMOTIDINE 20 MG/NACL 50 ML IV SCH ×2 (08:15→21:30)
[2016-09-23] MEDS: chlordiazePOXIDE 25 MG CAP PO SCH ×3 (08:15→21:30)
[2016-09-23] MEDS: DILTIAZEM XR 240 MG CAP PO SCH (08:15)
[2016-09-23] MEDS: ASPIRIN EC 81 MG TAB PO SCH (08:15)
[2016-09-23] MEDS: SERTRALINE HCL 50 MG TAB PO SCH (08:16)
[2016-09-23] MEDS ORDERED: Herbals/Supplements -Info Only PO SCH (09:00)
[2016-09-23] MEDS ORDERED: PROMETHAZINE HCL 25 MG TAB PO PRN (10:11)
[2016-09-23] MEDS ORDERED: PROMETHAZINE HCL 25 MG/ML INJ IVP PRN (10:11)
[2016-09-23] MEDS ORDERED: PROMETHAZINE HCL 25 MG/ML INJ ONE (10:18)
[2016-09-23] MEDS: ENOXAPARIN 40 MG/0.4 ML SYR SC SCH (10:47)
[2016-09-23] MEDS: HYDROmorphONE/DILAUDID 1 MG/ML SYR IVP PRN (21:29)
[2016-09-23] MEDS: LORazepam 2 MG/ML INJ IVP PRN (21:30)
[2016-09-24] MEDS: HYDROmorphONE/DILAUDID 1 MG/ML SYR IVP PRN ×2 (00:20→03:10)
[2016-09-24] MEDS: LORazepam 2 MG/ML INJ IVP PRN ×2 (02:55→09:09)
[2016-09-24] MEDS: NS 1,000 ML IV SCH (03:11)
[2016-09-24 05:54] LABS: MAGNESIUM 1.1 mg/dL (1.6-2.3)
[2016-09-24] MEDS: THIAMINE HCL 500 MG in NS 100 ML IV SCH (09:00)
[2016-09-24] MEDS ORDERED: LORazepam 2 MG/ML INJ IVP PRN ×2 (09:15→10:22)
[2016-09-24] MEDS ORDERED: MAGNESIUM SULF 2 GM/WATER 50 ML IV ONE ×2 (09:16)
[2016-09-24] MEDS ORDERED: PROTOCOL MAGNESIUM 1 DOSE IV PRN (09:18)
[2016-09-24] MEDS ORDERED: LORazepam 1 MG TAB PO PRN (09:19)
--- NOTE | 2016-09-24 09:20 | CPEKG ---
Heart Rate: 120 RR Interval: 500 QRSD Interval: 66 QT Interval: 324 QTC Interval: 458 QRS [place]: 3 T Wave [place]: 6 EKG Severity - ABNORMAL ECG - EKG Impression: ATRIAL FIBRILLATION EKG Impression: LOW VOLTAGE THROUGHOUT EKG Impression: COMPARED WITH 28 JUL 2016, QT NOW SHORTER Electronically Signed By: Amy Palacios 24-Sep-2016 15:50:05
--- NOTE | 2016-09-24 09:21 | HOSPPROG ---
Hospitalist Progress Note Assessment/Plan: #A fib with RVR: trigger likely Etoh w/d. Dose home dilt dose now. Asymptomatic , BP stable. Dilt gtt if doesn't respond to home med. Cont IVFs and treat Etoh w /d. CHADsVASC 1. #Recurrent C diff: 2 BMs last night. Flagyl x 10 days #Hypomagnesium: aggressive repletion #Acute abd pain: 2/2 pancreatitis. Improved #Alcoholic pancreatitis: no stones or biliary dilation on ultrasound. Less pain today, trial clears #Etoh abuse: been drinking a pint daily. Counseled on cessation #Depression: Zoloft #DVT ppx: Lovenox Disp: transfer to SDU for significant Etoh w/d, IV BZs, telemetry Subjective: called to bedside with HR 140s. Pt asymptomatic. 2 episodes diarrhea overnight Objective: Vital Signs Temp Pulse Resp BP Pulse Ox 37.0 C 133 H 16 133/101 H 98 09/24/16 07:25 09/24/16 09:02 09/24/16 09:02 09/24/16 09:02 09/24/16 09:02 Laboratory Results 09/23/16 05:50 09/23/16 05:50 09/23/16 09/24/16 09/25/16 05:59 05:59 05:59 Intake Total 5342 Output Total 2175 200 Balance 3167 -200 PT 13.9 SEC (12.0-15.0) 09/22/16 16:00 INR 1.08 (0.83-1.16) 09/22/16 16:00 - Physical Exam Constitutional: no apparent distress Eyes: PERRL Ears, Nose, Mouth, Throat: moist mucous membranes, poor dentition, dry mucous membranes Cardiovascular: irregularly irregular, tachycardia Respiratory: no respiratory distress, no rales or rhonchi Gastrointestinal: normoactive bowel sounds, soft, non-tender abdomen, tenderness (no TTP) Genitourinary: no bladder fullness Musculoskeletal: full muscle strength Neurologic: AAOx3, CN II-XII Intact, other (hand tremor and tongue fasiculation) Psychiatric: interacting appropriately ICD10 Worksheet Patient Problems: Problems Problem Status Onset Alcohol withdrawal Acute Pancreatitis Acute Alcohol abuse Acute Alcohol withdrawal Acute Atrial fibrillation with RVR Acute C. difficile diarrhea Acute 02/01/16 Nausea & vomiting Acute Nausea and vomiting in adult Acute Vomiting Acute
[2016-09-24] MEDS: chlordiazePOXIDE 25 MG CAP PO SCH ×3 (09:30→21:42)
[2016-09-24] MEDS: SERTRALINE HCL 50 MG TAB PO SCH (09:33)
[2016-09-24] MEDS: ASPIRIN EC 81 MG TAB PO SCH (09:33)
[2016-09-24] MEDS: DILTIAZEM XR 240 MG CAP PO SCH (09:33)
[2016-09-24] MEDS: ENOXAPARIN 40 MG/0.4 ML SYR SC SCH (09:44)
[2016-09-24 10:15] LABS: HEMATOCRIT 35.9 % (38.0-47.0); HEMOGLOBIN 12.2 g/dL (12.6-16.3); MEAN CELL HEMOGLOBIN 35.3 pg (27.9-34.1); MEAN CELL VOLUME 103.8 fL (81.5-99.8); RED BLOOD CELL COUNT 3.46 10^6/uL (4.18-5.33); RED CELL DISTRIBUTION WIDTH 12.6 % (11.5-15.2)
[2016-09-24] MEDS ORDERED: chlordiazePOXIDE 25 MG CAP PO PRN (10:22)
[2016-09-24 10:45] LABS: ALANINE AMINOTRANSFERASE 51 IU/L (9-52); ALBUMIN 3.2 g/dL (3.5-5.0); ALKALINE PHOSPHATASE 141 IU/L (38-126); ANION GAP 11 mEq/L (8-16); ASPARTATE AMINOTRANSFERASE 80 IU/L (14-46); BILIRUBIN,TOTAL 2.4 mg/dL (0.1-1.4); CALCIUM 7.8 mg/dL (8.5-10.4); CARBON DIOXIDE 20 mEq/l (22-31); CHLORIDE 102 mEq/L (97-110); CREATININE 0.5 mg/dL (0.6-1.0); GLOMERULAR FILTRATION RATE > 60; GLUCOSE 55 mg/dL (70-100); POTASSIUM 3.9 mEq/L (3.5-5.2); SODIUM 133 mEq/L (134-144); TOTAL PROTEIN 5.2 g/dL (6.3-8.2)
[2016-09-24 10:57] LABS: TROPONIN I < 0.012 ng/mL (0-0.034)
[2016-09-24 11:06] LABS: BILIRUBIN-CONJUGATED 0.9 mg/dL (0.0-0.5); BILIRUBIN-UNCONJUGATED 1.5 mg/dL (0.0-1.1)
[2016-09-24] MEDS: FAMOTIDINE 20 MG/NACL 50 ML IV SCH ×2 (11:24→21:43)
[2016-09-24] MEDS: DILTIAZEM 125 MG in D5W 125 ML IV SCH (11:53)
[2016-09-24] MEDS: metroNIDAZOLE 500 MG TAB PO SCH ×2 (15:08→21:42)
[2016-09-24 15:25] LABS: MAGNESIUM 1.1 mg/dL (1.6-2.3)
[2016-09-24 16:37] LABS: COLOR PALE YELLOW; LEUKOCYTE ESTERASE,URINE NEGATIVE (NEGATIVE); NITRITE,URINE NEGATIVE (NEGATIVE)
--- NOTE | 2016-09-24 17:12 | GHP ---
[f rep st] HISTORY AND PHYSICAL DATE OF ADMISSION: 09/22/2016 REFERRING PHYSICIAN: No Petit MD REASON FOR REFERRAL: Evaluation and management of atrial fibrillation with rapid ventricular respon se. HISTORY: The patient is a 61-year-old white woman with a history of alcohol abuse and atrial fibril lation, who presented to the Emergency Department 2 days ago after developing nausea and vomiting, a nd some upper quadrant pain. She was found to have some pancreatitis, and was admitted. She began to develop signs of alcohol withdrawal yesterday, and was placed on the CIWA protocol. Today, she d eveloped atrial fibrillation with a rapid ventricular response at a rate of 170, and was transferred to the Intensive Care Unit. She has been started on Cardizem, and her heart rate has come down. S he currently feels that she is having minimal alcohol withdrawal symptoms. Her main complaint curre ntly is urinary incontinence. She also has some fecal incontinence. She denies any hallucinations or seizures currently or in the past. PAST MEDICAL HISTORY: 1. Paroxysmal atrial fibrillation. 2. Depression. 3. History of alcohol abuse. 4. History of pancreatitis. MEDICATIONS: At the time of admission include: Zoloft, diltiazem, and aspirin. ALLERGIES: Sulfa. SOCIAL HISTORY: The patient drinks about a pint of vodka a day. She does not smoke, and denies oth er drug use. FAMILY HISTORY: Positive for alcoholism. REVIEW OF SYSTEMS: A 10-point review of systems adds nothing to the history of present illness. PHYSICAL EXAM: GENERAL: The patient is awake, alert, in no acute distress. VITAL SIGNS: Blood pr essure is 123/94. Heart rate is 80 and irregular. She is afebrile. Oxygen saturations are 97% on 2 L. HEENT: Normocephalic and atraumatic. No icterus. NECK: No JVD. Trachea is midline. CHEST : Clear to auscultation. CARDIAC: Irregularly irregular without murmur. ABDOMEN: Soft, nontende r. Bowel sounds are present. EXTREMITIES: No clubbing, cyanosis, or edema. NEURO: The patient i s awake and alert and oriented. She has no significant tremor. There is no muscle weakness, and se nsory is grossly intact. LABORATORY: Hemoglobin is 12.2, down from 15.1. White blood count is 6.4, down from 12.7. Platele t count is 105, down from 311. Chemistry group shows a creatinine of 0.5. Sodium is 133. Lipase w as 943 at admission. AST is 80, down from 176. Alcohol level was less than 10 at the time of admis tameka. C difficile toxin assay is positive. Ultrasound of her abdomen demonstrates hepatic enlargement, increased echogenicity with no ductal di latation. ECG from 9:19 this morning shows atrial fibrillation with a heart rate of 120. Images reviewed/inte rpreted by me. ASSESSMENT: 1. Pancreatitis. The patient's clinical symptoms improved a bit. She is on a clear liquid diet. 2. Atrial fibrillation with a rapid ventricular response. The patient's heart rate was as high as 170, and then decrease to 120, and is now down to less than 100. Her monitor rhythm changed looks m ore like atrial flutter or coarse atrial fibrillation. 3. Alcohol withdrawal. This currently is fairly mild, and controlled with p.r.n. Ativan. 4. Clostridium difficile colitis. The patient is just having 1-2 stools a day, but feels some feca l incontinence. 5. Urinary frequency/incontinence. It is possible the patient has a superimposed urinary tract inf ection. RECOMMENDATIONS: 1. Continue oral diltiazem, as well as diltiazem drip p.r.n. 2. Continue CIWA protocol. 3. Check urinalysis. 4. Continue Flagyl for C difficile. /[id number]/MODL
[2016-09-24] MEDS ORDERED: PROTOCOL POTASSIUM 1 DOSE MISC PRN (22:20)
[2016-09-25 04:28] LABS: % IMMATURE GRANULYOCYTES 0.4 % (0.0-1.1); ABSOLUTE IMMATURE GRANULOCYTES 0.02 10^3/uL (0.00-0.10); ADD DIFF? NO; ADD MORPH? NO; ADD SCAN? NO; ATYPICAL LYMPHOCYTE FLAG 10 (0-99); FRAGMENT RBC FLAG 0 (0-99); HEMATOCRIT 38.3 % (38.0-47.0); HEMOGLOBIN 13.1 g/dL (12.6-16.3); LEFT SHIFT FLG 0 (0-99); LIPEMIA HEMOLYSIS FLAG 90 (0-99); MEAN CELL HEMOGLOBIN 34.9 pg (27.9-34.1); MEAN CELL HEMOGLOBIN CONCENTR. 34.2 g/dL (32.4-36.7); MEAN CELL VOLUME 102.1 fL (81.5-99.8); MEAN PLATELET VOLUME 9.7 fL (8.7-11.7); PLATELET CLUMPS FLAG 0 (0-99); PLATELET COUNT 108 10^3/uL (150-400); RED BLOOD CELL COUNT 3.75 10^6/uL (4.18-5.33)
[2016-09-25] MEDS: DILTIAZEM 125 MG in D5W 125 ML IV SCH (04:29)
[2016-09-25 04:45] LABS: ALANINE AMINOTRANSFERASE 50 IU/L (9-52); ALBUMIN 3.4 g/dL (3.5-5.0); ALKALINE PHOSPHATASE 170 IU/L (38-126); ASPARTATE AMINOTRANSFERASE 70 IU/L (14-46); BILIRUBIN,TOTAL 2.1 mg/dL (0.1-1.4); CALCIUM 8.2 mg/dL (8.5-10.4); CARBON DIOXIDE 25 mEq/l (22-31); CHLORIDE 100 mEq/L (97-110); CREATININE 0.5 mg/dL (0.6-1.0); GLOMERULAR FILTRATION RATE > 60; GLUCOSE 74 mg/dL (70-100); MAGNESIUM 1.8 mg/dL (1.6-2.3); SODIUM 133 mEq/L (134-144); TOTAL PROTEIN 5.7 g/dL (6.3-8.2)
[2016-09-25 04:53] LABS: ANION GAP 8 mEq/L (8-16); POTASSIUM 3.6 mEq/L (3.5-5.2)
[2016-09-25 05:00] LABS: BILIRUBIN-CONJUGATED 0.7 mg/dL (0.0-0.5); BILIRUBIN-UNCONJUGATED 1.4 mg/dL (0.0-1.1)
[2016-09-25] MEDS: POTASSIUM Cl (KCl) 100 ML IV SCH ×3 (06:47→08:59)
[2016-09-25] MEDS: metroNIDAZOLE 500 MG TAB PO SCH ×3 (06:47→21:26)
[2016-09-25] MEDS: SERTRALINE HCL 50 MG TAB PO SCH (08:57)
[2016-09-25] MEDS: DILTIAZEM XR 240 MG CAP PO SCH (08:58)
[2016-09-25] MEDS: ASPIRIN EC 81 MG TAB PO SCH (08:58)
[2016-09-25] MEDS: chlordiazePOXIDE 25 MG CAP PO SCH ×3 (08:58→21:27)
[2016-09-25] MEDS: FAMOTIDINE 20 MG/NACL 50 ML IV SCH ×2 (08:59→21:27)
[2016-09-25] MEDS: ENOXAPARIN 40 MG/0.4 ML SYR SC SCH (08:59)
[2016-09-25] MEDS ORDERED: MAGNESIUM SULF 1 GM/DEXTROSE 100 ML IV ONE (09:48)
--- NOTE | 2016-09-25 11:57 | HOSPPROG ---
Hospitalist Progress Note Assessment/Plan: #A fib with RVR: trigger likely Etoh w/d. Now in NSR after home dilt dose. CHADsVASC 1. #Recurrent C diff: 2 BMs last night. Flagyl x 10 days (stop October 03) #Hypomagnesium: aggressive repletion #Acute abd pain: 2/2 pancreatitis. Improved #Alcoholic pancreatitis: no stones or biliary dilation on ultrasound. Less pain today, trial clears #Etoh abuse: been drinking a pint daily. Counseled on cessation #Depression: Zoloft #DVT ppx: Lovenox #Diet: advance to regular Disp: transfer to med-surg Subjective: no abd pain, N/V Objective: Vital Signs Temp Pulse Resp BP Pulse Ox 36.4 C 62 20 125/69 H 100 09/25/16 08:00 09/25/16 09:00 09/25/16 08:00 09/25/16 08:00 09/25/16 08:00 Laboratory Results 09/25/16 04:15 09/25/16 04:15 09/24/16 09/25/16 09/26/16 05:59 05:59 05:59 Intake Total 5342 1530 400 Output Total 2175 2725 Balance 3167 -1195 400 PT 13.9 SEC (12.0-15.0) 09/22/16 16:00 INR 1.08 (0.83-1.16) 09/22/16 16:00 - Physical Exam Constitutional: no apparent distress Eyes: PERRL Ears, Nose, Mouth, Throat: moist mucous membranes Cardiovascular: regular rate and rhythym Respiratory: no respiratory distress, no rales or rhonchi Gastrointestinal: normoactive bowel sounds, soft, non-tender abdomen Genitourinary: no bladder fullness Skin: warm Musculoskeletal: full muscle strength Neurologic: AAOx3, CN II-XII Intact, other (min hand tremor) ICD10 Worksheet Patient Problems: Problems Problem Status Onset Alcohol withdrawal Acute Pancreatitis Acute Alcohol abuse Acute Alcohol withdrawal Acute Atrial fibrillation with RVR Acute C. difficile diarrhea Acute 02/01/16 Nausea & vomiting Acute Nausea and vomiting in adult Acute Vomiting Acute
[2016-09-25] MEDS: HYDROmorphONE/DILAUDID 1 MG/ML SYR IVP PRN (12:38)
[2016-09-25 18:40] LABS: POTASSIUM 3.8 mEq/L (3.5-5.2)
[2016-09-25] MEDS ORDERED: POTASSIUM CL 10 MEQ TAB PO ONE (20:49)
[2016-09-26] MEDS: FAMOTIDINE 20 MG/NACL 50 ML IV SCH (08:11)
[2016-09-26] MEDS: ENOXAPARIN 40 MG/0.4 ML SYR SC SCH (08:12)
[2016-09-26] MEDS: SERTRALINE HCL 50 MG TAB PO SCH (08:12)
[2016-09-26] MEDS: metroNIDAZOLE 500 MG TAB PO SCH (08:13)
[2016-09-26] MEDS: DILTIAZEM XR 240 MG CAP PO SCH (08:14)
[2016-09-26] MEDS: ASPIRIN EC 81 MG TAB PO SCH (08:17)
[2016-09-26 08:21] VITALS: BP 145/84; PULSE 60
[2016-09-26 08:24] VITALS: RESP 16; TEMP 97.7; O2SAT 100
[2016-09-26] MEDS: chlordiazePOXIDE 25 MG CAP PO SCH (08:41)
--- NOTE | 2016-09-26 11:52 | PDDCSUM ---
Discharge Summary Discharge Summary: DISCHARGE SUMMARY FOLLOW-UP ITEMS: Follow-up [facility], follow up alcohol cessation efforts DATE OF ADMISSION: 09/24/16 DATE OF DISCHARGE: 09/26/16 DISCHARGE DIAGNOSES: 1. Atrial Fibrillation with acute RVR 2. Acute alcohol induced pancreatitis 3. Acute c. difficile colitis 4. Acute alcohol withdraw CONSULTATIONS: Critical Care PROCEDURES / IMAGING: None CHIEF COMPLAINT: Abdominal pain, diarrhea SUBJECTIVE: Reports formed stool PHYSICAL EXAM ON DISCHARGE: VSS, SBP 100-130, HR 60-70, on room air, minimally tremulous, AAOx3, flat affect LABS ON DISCHARGE: Na 133, CDiff PCR positive HOSPITAL COURSE BY PROBLEM: 1. Atrial Fib w/ acute RVR. Most likely triggered by combination of CDiff, pancreatitis, and acute alcohol withdraw, s/p dilt IV and reinitiation of PO home dosage. She chemically converted to NSR, continues on ASA for CVA ppx. 2. Acute pancreatitis. Alcohol induced, lipase 940, abdominal pain and leukocytosis, tx w/ IVF and pain Rx. Currently tolerating oral diet, avoid alcohol advised. 3. Acute C. difficile colitis. Likely a contributor to abdominal pain, PCR positive, started on flagyl w/ good effect, having normal BMs on day of discharge. Total course 14 days. 4. Acute alcohol withdraw. Evidenced by tremulousness, tachycardia, responded to scheduled librium and PRN ativan. Patient has stabilized by discharge, should not be discharged on benzos given high risk of alcohol relapse. She will go to [facility] for mental health follow-up, and is optimistic she can abstain. DISCHARGE MEDICATIONS: Please see official discharge medication reconciliation sheet in chart, flagyl 500mg q8hrs x total 14 days, home dilt 240 cd, ASA 81 DISCHARGE INSTRUCTIONS: Please follow-up with Dr. Nelson w/in 1 week, and establish care at [facility]. TIME SPENT: Greater than 30 minutes were spent on direct patient care, as well as discharge planning and preparation.
== END 2016-09-26 12:55 | disposition home or self-care (01) | DRG 439 ==
LOC: F1N 09-23 13:28 → F2N 09-24 10:30
PROVIDERS: ADMIT Hospitalist; ATTEND Internal Medicine
DX: K85.20 Alcohol induced acute pancreatitis without necrosis or infection (principal); A04.7 Enterocolitis due to Clostridium difficile; F10.231 Alcohol dependence with withdrawal delirium; I48.0 Paroxysmal atrial fibrillation
CPT/HCPCS: 96374; G0480; J1170; J1650; J2060; J2405; J2550; J3411

== ENCOUNTER 2016-10-18 22:28 | Observation (INO) | payer MEDICAID ==
[2016-10-18] MEDS ORDERED: ONDANSETRON 4 MG/2 ML VIAL IVP ONE (22:52)
[2016-10-18] MEDS ORDERED: LORazepam 2 MG/ML INJ IVP ONE (22:52)
[2016-10-18] MEDS ORDERED: NS 1,000 ML IV ONE (22:52)
--- NOTE | 2016-10-18 22:56 | CPEKG ---
Heart Rate: 156 RR Interval: 385 QRSD Interval: 66 QT Interval: 308 QTC Interval: 496 QRS Huntington: 34 T Wave Huntington: 36 EKG Severity - ABNORMAL ECG - EKG Impression: ATRIAL FIBRILLATION WITH RAPID V-RATE EKG Impression: LOW VOLTAGE THROUGHOUT Electronically Signed By: Steven Messer 19-Oct-2016 05:18:52
[2016-10-18] MEDS ORDERED: DILTIAZEM 25 MG/5 ML VIAL IVP ONE (22:58)
--- NOTE | 2016-10-18 22:58 | EDPHY ---
H & P Stated Complaint: n/v Time Seen by Provider: 10/18/16 22:41 HPI/ROS: Chief Complaint: Palpitations, nausea vomiting, alcohol withdrawal HPI: 61-year-old woman with a history of chronic alcohol abuse, atrial fibrillation and pancreatitis presenting with nausea and vomiting for the last 24 hours. Patient states that she is withdrawing from alcohol. Last drink was about 24 hours ago. She has had multiple episodes of nausea vomiting. No abdominal pain. Also having some palpitations. Has been unable to take her diltiazem today. No fevers or chills. No cough. No chest pain. Mild shortness of breath. No hematemesis or melena. She has never had an alcohol withdrawal seizure. ROS: 10 point Review of Systems is negative except as noted in the HPI. PMH: Chronic alcoholism, atrial fibrillation, pancreatitis Social History: No smoking, heavy alcohol, no recreational drug use Family History: non-contributory Physical Exam: Gen: Awake, Alert, tremulous, tachycardic HEENT: Nose: no rhinorrhea Eyes: PERRLA, EOMI Mouth: Moist mucosa Neck: Supple, no JVD Chest: nontender, lungs clear to auscultation Heart: Tachycardic, irregularly irregular, S1, S2 Abd: Soft, non-tender, no guarding Back: no CVA tenderness, no midline tenderness Ext: no edema, non-tender Skin: no rash Neuro: CN II-XII intact, Sensation grossly intact, Strength 5/5 in bilateral upper and lower extremities - Personal History Current Tetanus/Diphtheria Vaccine: Yes Current Tetanus Diphtheria and Acellular Pertussis (TDAP): Yes Tetanus Vaccine Date: 2014 - Medical/Surgical History Hx Asthma: No Hx Chronic Respiratory Disease: No Hx Diabetes: No Hx Cardiac Disease: Yes Hx Renal Disease: No Hx Cirrhosis: No Hx Alcoholism: Yes Hx HIV/AIDS: No Hx Splenectomy or Spleen Trauma: No Other PMH: PMHx: Alcoholism, degenerative disc disease, osteoarthritis, scoliosis, heart murmur, a-fib, C difficile-Dec 2015, hx withdrawal, pancreatitis. PSHx: tonsillectomy - Social History Smoking Status: Never smoked Constitutional: Initial Vital Signs Temperature (C) 36.4 C 10/18/16 22:36 Heart Rate 150 H 10/18/16 22:36 Respiratory Rate 18 10/18/16 22:36 Blood Pressure 97/87 H 10/18/16 22:36 O2 Sat (%) 95 10/18/16 22:36 O2 Delivery Mode Nasal Cannula O2 (L/minute) 2 Allergies/Adverse Reactions: Sulfa (Sulfonamide Antibiotics) Allergy (Mild, Verified 10/18/16 22:35) Rash Home Medications: Medication Instructions Recorded Sertraline HCl [Zoloft 50mg (*)] 75 mg PO DAILY 03/14/16 Diltiazem Xr [Dilacor Xr] 240 mg PO DAILY #30 cap 04/24/16 Aspirin EC [Aspirin EC 81 mg (*)] 81 mg PO DAILY 09/22/16 Herbals/Supplements -Info Only 1 ea PO DAILY 09/22/16 Medical Decision Making - Diagnostics EKG Interpretation: ECG time 10:54 p.m., atrial fibrillation with a ventricular rate of 156, low voltage throughout. No acute ST or T-wave changes. ED Course/Re-evaluation: 61-year-old woman's emergency department with a history of alcoholism, pancreatitis and atrial fibrillation. She is in atrial fibrillation with RVR at this time and is tremulous from her alcohol withdrawal. She is not able to tolerate p. o.. Have initiated a diltiazem bolus and drip. She is given Ativan. IV fluids. Antiemetics. Will check blood work and discuss with Internal Medicine for admission. 2355 patient's heart rates improved to 126. Blood chemistry is at her baseline. No evidence of pancreatitis at this time. I discussed with Dr. Barnett , hospitalist. Will admit to her service for further care. - Data Points Laboratory Results: Laboratory Results 10/18/16 23:00 10/18/16 23:00 10/18/16 10/18/16 23:00 23:00 WBC 10.74 10^3/uL H 10^3/uL (3.80-9.50) RBC 4.55 10^6/uL 10^6/uL (4.18-5.33) Hgb 15.6 g/dL g/dL (12.6-16.3) Hct 44.4 % % (38.0-47.0) MCV 97.6 fL fL (81.5-99.8) MCH 34.3 pg H pg (27.9-34.1) MCHC 35.1 g/dL g/dL (32.4-36.7) RDW 11.5 % % (11.5-15.2) Plt Count 266 10^3/uL 10^3/uL (150-400) MPV 9.6 fL fL (8.7-11.7) Neut % (Auto) 85.1 % H % (39.3-74.2) Lymph % (Auto) 8.7 % L % (15.0-45.0) Glenn % (Auto) 5.2 % % (4.5-13.0) Eos % (Auto) 0.0 % L % (0.6-7.6) Baso % (Auto) 0.6 % % (0.3-1.7) Nucleat RBC Rel Count 0.0 % % (0.0-0.2) Absolute Neuts (auto) 9.15 10^3/uL H 10^3/uL (1.70-6.50) Absolute Lymphs (auto) 0.93 10^3/uL L 10^3/uL (1.00-3.00) Absolute Monos (auto) 0.56 10^3/uL 10^3/uL (0.30-0.80) Absolute Eos (auto) 0.00 10^3/uL L 10^3/uL (0.03-0.40) Absolute Basos (auto) 0.06 10^3/uL 10^3/uL (0.02-0.10) Absolute Nucleated RBC 0.00 10^3/uL 10^3/uL (0-0.01) Immature Gran % 0.4 % % (0.0-1.1) Immature Gran # 0.04 10^3/uL 10^3/uL (0.00-0.10) Sodium 137 mEq/L mEq/L (134-144) Potassium 4.3 mEq/L mEq/L (3.5-5.2) Chloride 102 mEq/L mEq/L (97-110) Carbon Dioxide 15 mEq/l L mEq/l (22-31) Anion Gap 20 mEq/L H mEq/L (8-16) BUN 7 mg/dL mg/dL (7-23) Creatinine 0.8 mg/dL mg/dL (0.6-1.0) Estimated GFR > 60 Glucose 157 mg/dL H mg/dL (70-100) Calcium 9.6 mg/dL mg/dL (8.5-10.4) Total Bilirubin 1.8 mg/dL H mg/dL (0.1-1.4) Conjugated Bilirubin 0.6 mg/dL H mg/dL (0.0-0.5) Unconjugated Bilirubin 1.2 mg/dL H mg/dL (0.0-1.1) AST 63 IU/L H IU/L (14-46) ALT 36 IU/L IU/L (9-52) Alkaline Phosphatase 203 IU/L H IU/L (38-126) Total Protein 6.6 g/dL g/dL (6.3-8.2) Albumin 4.3 g/dL g/dL (3.5-5.0) Lipase 249.0 IU/L IU/L (23-300) Medications Given: Discontinued Medications Diltiazem HCl (Cardizem 25 Mg/5 Ml Vial) 10 mg IVP EDNOW ONE Stop: 10/18/16 22:59 Last Admin: 10/18/16 23:26 Dose: 10 mg Sodium Chloride (Ns) 1,000 mls @ 0 mls/hr IV ONCE ONE PRN Reason: Wide Open Stop: 10/18/16 22:53 Last Admin: 10/18/16 23:13 Dose: 1,000 mls Diltiazem HCl 125 mg/ Dextrose 125 mls @ 0 mls/hr IV EDNOW ONE; Titrate PRN Reason: Protocol Stop: 10/18/16 23:00 Last Admin: 10/18/16 23:37 Dose: 125 mls Lorazepam (Ativan Injection) 1 mg IVP EDNOW ONE Stop: 10/18/16 22:53 Last Admin: 10/18/16 23:13 Dose: 1 mg Ondansetron HCl (Zofran) 4 mg IVP EDNOW ONE Stop: 10/18/16 22:53 Last Admin: 10/18/16 23:13 Dose: 4 mg Departure - Departure Disposition: [facility] In[facility] Acute Clinical Impression: Alcohol withdrawal, Atrial fibrillation with RVR Condition: Fair Referrals: Harriet Nelson MD [Primary Care Provider] - As per Instructions
[2016-10-18] MEDS ORDERED: DILTIAZEM 125 MG in D5W 125 ML IV ONE (22:59)
[2016-10-18] MEDS ORDERED: LORazepam 2 MG/ML INJ ONE (23:07)
[2016-10-18 23:09] LABS: % IMMATURE GRANULYOCYTES 0.4 % (0.0-1.1); ABSOLUTE IMMATURE GRANULOCYTES 0.04 10^3/uL (0.00-0.10); ADD DIFF? NO; ADD MORPH? NO; ADD SCAN? NO; ATYPICAL LYMPHOCYTE FLAG 0 (0-99); FRAGMENT RBC FLAG 0 (0-99); HEMATOCRIT 44.4 % (38.0-47.0); HEMOGLOBIN 15.6 g/dL (12.6-16.3); LEFT SHIFT FLG 0 (0-99); LIPEMIA HEMOLYSIS FLAG 90 (0-99); MEAN CELL HEMOGLOBIN 34.3 pg (27.9-34.1); MEAN CELL HEMOGLOBIN CONCENTR. 35.1 g/dL (32.4-36.7); MEAN CELL VOLUME 97.6 fL (81.5-99.8); MEAN PLATELET VOLUME 9.6 fL (8.7-11.7); PLATELET CLUMPS FLAG 0 (0-99); PLATELET COUNT 266 10^3/uL (150-400); RED BLOOD CELL COUNT 4.55 10^6/uL (4.18-5.33); RED CELL DISTRIBUTION WIDTH 11.5 % (11.5-15.2)
[2016-10-18 23:24] LABS: ALANINE AMINOTRANSFERASE 36 IU/L (9-52); ALBUMIN 4.3 g/dL (3.5-5.0); ALKALINE PHOSPHATASE 203 IU/L (38-126); ANION GAP 20 mEq/L (8-16); ASPARTATE AMINOTRANSFERASE 63 IU/L (14-46); BILIRUBIN,TOTAL 1.8 mg/dL (0.1-1.4); BILIRUBIN-CONJUGATED 0.6 mg/dL (0.0-0.5); BILIRUBIN-UNCONJUGATED 1.2 mg/dL (0.0-1.1); CALCIUM 9.6 mg/dL (8.5-10.4); CARBON DIOXIDE 15 mEq/l (22-31); CHLORIDE 102 mEq/L (97-110); CREATININE 0.8 mg/dL (0.6-1.0); GLOMERULAR FILTRATION RATE > 60; GLUCOSE 157 mg/dL (70-100); POTASSIUM 4.3 mEq/L (3.5-5.2); SODIUM 137 mEq/L (134-144); TOTAL PROTEIN 6.6 g/dL (6.3-8.2)
[2016-10-18] MEDS ORDERED: DILTIAZEM 125 MG in D5W 125 ML IV SCH (23:45)
[2016-10-18] MEDS ORDERED: NS 1,000 ML IV SCH (23:45)
[2016-10-18] MEDS ORDERED: LORazepam 2 MG/ML INJ IVP PRN (23:56)
[2016-10-18] MEDS ORDERED: chlordiazePOXIDE 25 MG CAP PO PRN (23:56)
[2016-10-19] MEDS ORDERED: ACETAMINOPHEN 325 MG TAB PO PRN (00:35)
[2016-10-19] MEDS ORDERED: PROMETHAZINE HCL 25 MG/ML INJ IVP PRN (00:35)
[2016-10-19] MEDS ORDERED: ONDANSETRON 4 MG/2 ML VIAL IVP PRN (00:35)
--- NOTE | 2016-10-19 02:00 | GHP ---
[f rep st] HISTORY AND PHYSICAL DATE OF ADMISSION: 10/18/2016 CHIEF COMPLAINT: Nausea and vomiting. HISTORY: The patient is a 61-year-old female, longstanding alcoholic. She has been trying to quit alcohol for some time. She is now trying again. Her last alcoholic beverage was 2 nights ago. She has now been vomiting continuously for the last 12 hours, which she typically does when she withdra wals. Due to this nausea and vomiting, she has been unable to tolerate her oral medications includi ng her oral diltiazem, which she takes for chronic AFib. She had minimal palpitations, chest pain, or shortness of breath; however, upon arriving to the ER, she was found to be in rapid AFib with a h eart rate of 150. PAST MEDICAL HISTORY: 1. Atrial fibrillation. 2. Alcoholic pancreatitis. 3. Alcohol withdrawal seizure. 4. Scoliosis with chronic back pain. MEDICATIONS: Please see computer record for full detailed list. ALLERGIES: Sulfa. SOCIAL HISTORY: No smoking. She drinks 1 pint per day of vodka and has for the last 25 years. She lives alone. REVIEW OF SYSTEMS: Complete review of systems obtained. Review of systems is negative regarding co nstitutional, HEENT, GI, pulmonary, cardiovascular, , hematology, skin, musculoskeletal, endocrine , psych, except for positives and negatives as noted in HPI. FAMILY HISTORY: Reviewed and noncontributory to presenting complaint. PHYSICAL EXAMINATION: GENERAL: Well-developed, well-nourished female, in no acute distress. VITAL SIGNS: Temperature is 36.4, pulse 150, blood pressure 118/85, saturating 95% on room air. EYES: Normal conjunctivae. Pupils are equal, round, reactive to light. ENT: Normal ears and nose. Hear ing intact. Normal lips and teeth. Oropharynx moist. NECK: Trachea midline. No thyromegaly. CH EST: Normal respiratory effort. LUNGS: Clear to auscultation bilaterally. CARDIOVASCULAR: Irreg ular, irregular. Tachycardic. No murmur. No lower extremity edema. ABDOMEN: Soft. Nontender. No hepatosplenomegaly. SKIN: Warm, dry, intact. No rash. MUSCULOSKELETAL: No cyanosis or clubbi ng. Strength 5/5 upper and lower extremities. NEUROLOGIC: Cranial nerves intact. Normal sensatio n to light touch. PSYCH: Alert and oriented x3. Normal mood and affect. Normal judgment. Normal insight. Normal memory. LABORATORY DATA: White count 10.74, hematocrit 34.3, platelets 266. Sodium 137, potassium 4.3, chl oride 102, bicarb 15, BUN 7, creatinine 0.8, glucose 157. Total bilirubin 1.8, AST 163, alkaline ph osphatase 203. Lipase is 249. EKG, viewed by me, my personal interpretation is atrial fibrillation with rapid ventricular response. No ischemic ST or T-wave changes. MEDICAL RECORD REVIEW: She has multiple previous admissions here. All were related to alcohol, com plications of her alcoholism, including alcohol withdrawal alcohol pancreatitis. ASSESSMENT AND PLAN: 1. Rapid atrial fibrillation due to inability to tolerate oral medications due to nausea and vomiti ng. She will be continued on IV diltiazem drip until she is able to take p.o. Her CHADS2-VASc scor e is 1, and she is currently treated with aspirin alone. 2. Alcohol withdrawal. Will give her IV thiamine and benzodiazepines as needed. Will follow elect rolytes. CODE STATUS: Full. ADMISSION STATUS: Will admit to observation as clinical course will be depending on the rapidity of improvement. DEEP VEIN THROMBOSIS PROPHYLAXIS: She is moderate to high risk. [facility] /[id number]/MODL
[2016-10-19] MEDS: THIAMINE HCL 500 MG in NS 100 ML IV SCH ×3 (02:44→08:24)
[2016-10-19] MEDS ORDERED: DILTIAZEM CD 120 MG CAP PO SCH (05:15)
[2016-10-19 05:47] LABS: % IMMATURE GRANULYOCYTES 0.3 % (0.0-1.1); ABSOLUTE IMMATURE GRANULOCYTES 0.02 10^3/uL (0.00-0.10); ADD DIFF? NO; ADD MORPH? NO; ADD SCAN? NO; ATYPICAL LYMPHOCYTE FLAG 0 (0-99); FRAGMENT RBC FLAG 0 (0-99); HEMATOCRIT 40.4 % (38.0-47.0); LEFT SHIFT FLG 0 (0-99); LIPEMIA HEMOLYSIS FLAG 90 (0-99); MEAN CELL HEMOGLOBIN 34.3 pg (27.9-34.1); MEAN CELL HEMOGLOBIN CONCENTR. 34.7 g/dL (32.4-36.7); MEAN PLATELET VOLUME 9.7 fL (8.7-11.7); PLATELET CLUMPS FLAG 0 (0-99); PLATELET COUNT 192 10^3/uL (150-400); RED BLOOD CELL COUNT 4.08 10^6/uL (4.18-5.33); RED CELL DISTRIBUTION WIDTH 11.7 % (11.5-15.2)
[2016-10-19 05:55] LABS: PROTIME(PATIENT) 13.1 SEC (12.0-15.0)
[2016-10-19 06:02] LABS: ALANINE AMINOTRANSFERASE 31 IU/L (9-52); ALBUMIN 3.6 g/dL (3.5-5.0); ALKALINE PHOSPHATASE 171 IU/L (38-126); ANION GAP 10 mEq/L (8-16); ASPARTATE AMINOTRANSFERASE 50 IU/L (14-46); BILIRUBIN,TOTAL 1.8 mg/dL (0.1-1.4); BILIRUBIN-CONJUGATED 0.6 mg/dL (0.0-0.5); BILIRUBIN-UNCONJUGATED 1.2 mg/dL (0.0-1.1); CALCIUM 8.7 mg/dL (8.5-10.4); CARBON DIOXIDE 21 mEq/l (22-31); CHLORIDE 101 mEq/L (97-110); CREATININE 0.7 mg/dL (0.6-1.0); GLOMERULAR FILTRATION RATE > 60; GLUCOSE 149 mg/dL (70-100); MAGNESIUM 1.1 mg/dL (1.6-2.3); POTASSIUM 4.5 mEq/L (3.5-5.2); SODIUM 132 mEq/L (134-144); TOTAL PROTEIN 5.7 g/dL (6.3-8.2)
[2016-10-19 06:13] LABS: TROPONIN I < 0.012 ng/mL (0-0.034)
[2016-10-19] MEDS ORDERED: PNEUMOCOCCAL 0.5ML VACCINE VIAL IM ONE (08:31)
[2016-10-19] MEDS ORDERED: ASPIRIN EC 325 MG TAB PO SCH (09:00)
[2016-10-19] MEDS ORDERED: ENOXAPARIN 40 MG/0.4 ML SYR SC SCH (09:00)
[2016-10-19] MEDS ORDERED: ASPIRIN EC 81 MG TAB PO SCH (09:45)
[2016-10-19] MEDS ORDERED: DILTIAZEM XR 240 MG CAP PO SCH (09:45)
[2016-10-19] MEDS ORDERED: SERTRALINE HCL 50 MG TAB PO SCH (09:45)
--- NOTE | 2016-10-19 09:56 | HOSPPROG ---
Hospitalist Progress Note Assessment/Plan: 61 yo F w mild alcohol withdrawal, rapid AF AF: now in sinus long standing continue po dilt alcohol withdrawal: mild give librium 50 X 1 now dispo: home today see dc summary Subjective: now in sinus. took long acting dilt Objective: Vital Signs Temp Pulse Resp BP Pulse Ox 37.3 C 86 17 123/75 H 99 10/19/16 07:31 10/19/16 07:31 10/19/16 07:31 10/19/16 07:31 10/19/16 07:31 Laboratory Results 10/19/16 05:30 10/19/16 05:30 10/18/16 10/19/16 10/20/16 05:59 05:59 05:59 Intake Total 1575 Balance 1575 PT 13.1 SEC (12.0-15.0) 10/19/16 05:30 INR 1.00 (0.83-1.16) 10/19/16 05:30 - Physical Exam Constitutional: no apparent distress, appears nourished Eyes: PERRL, anicteric sclera Ears, Nose, Mouth, Throat: moist mucous membranes, hearing normal Cardiovascular: regular rate and rhythym, no murmur, rub, or gallop Respiratory: no respiratory distress, no rales or rhonchi Gastrointestinal: normoactive bowel sounds, soft, non-tender abdomen Genitourinary: no bladder fullness, No nicole in urethra Skin: warm, normal color Musculoskeletal: full muscle strength Neurologic: AAOx3 Psychiatric: interacting appropriately ICD10 Worksheet Patient Problems: Problems Problem Status Onset Alcohol withdrawal Acute Atrial fibrillation with RVR Acute Alcohol abuse Acute Alcohol withdrawal Acute C. difficile diarrhea Acute 09/23/16 Nausea & vomiting Acute Nausea and vomiting in adult Acute Pancreatitis Acute Vomiting Acute
[2016-10-19 12:57] VITALS: RESP 18
[2016-10-19] MEDS ORDERED: chlordiazePOXIDE 25 MG CAP PO ONE (13:31)
--- NOTE | 2016-10-19 13:33 | GDS ---
[f rep st] DISCHARGE SUMMARY DISCHARGE DIAGNOSES: 1. Alcohol withdrawal. 2. Nausea and vomiting secondary to alcohol withdrawal. 3. Longstanding atrial fibrillation with CHADS-VASc of 1. 4. History of alcoholism. HOSPITAL COURSE: Please see admission history and physical by Dr. Natalia Barnett. The patient was admitted with nausea, vomiting, rapid AFib in the 100s. She was put on a diltiazem drip. She conve rted overnight. She had mild alcohol withdrawal. She was not tachycardic when she was in sinus. S he was tolerating orals. She was given a 1 time dose of Librium and discharged home. She tolerated her oral diltiazem prior to discharge. /[id number]/MODL
[2016-10-19 14:39] VITALS: O2SAT 94
[2016-10-19 16:39] VITALS: BP 91/58; PULSE 77; TEMP 98.3
[2016-10-20] MEDS ORDERED: Herbals/Supplements -Info Only PO SCH (09:00)
[2016-10-21] MEDS ORDERED: THIAMINE HCL 100 MG TAB PO SCH (09:00)
== END 2016-10-19 17:34 | disposition home or self-care (01) ==
LOC: INTOOBSV 23:56 → F2W 10-19 00:38 → UNDODISIN 10-19 13:45
PROVIDERS: ADMIT Internal Medicine; ATTEND Internal Medicine
PROC: 3E033RZ Introduction of Antiarrhythmic into Peripheral Vein, Percutaneous Approach (ICD-10-PCS; principal; 2016-10-18)
DX: F10.230 Alcohol dependence with withdrawal, uncomplicated (principal); I48.2 Chronic atrial fibrillation; Z79.01 Long term (current) use of anticoagulants; Z23 Encounter for immunization; Y90.9 Presence of alcohol in blood, level not specified; M41.9 Scoliosis, unspecified; M54.9 Dorsalgia, unspecified
CPT/HCPCS: 90471; 93005; 96365; 96375; 97161; 99285; G0378; G0009; J1650; J2060; J2405; J3411

== ENCOUNTER 2016-10-23 01:53 | Emergency (ER) | payer MEDICAID ==
[2016-10-23] MEDS ORDERED: LORazepam 2 MG/ML INJ IVP ONE (02:08)
[2016-10-23] MEDS ORDERED: NS 1,000 ML IV ONE ×2 (02:08→03:10)
[2016-10-23] MEDS ORDERED: ONDANSETRON 4 MG/2 ML VIAL IVP ONE ×2 (02:27→04:26)
[2016-10-23] MEDS ORDERED: ONDANSETRON 4 MG/2 ML VIAL ONE (02:28)
[2016-10-23 02:32] LABS: % IMMATURE GRANULYOCYTES 0.5 % (0.0-1.1); ABSOLUTE IMMATURE GRANULOCYTES 0.03 10^3/uL (0.00-0.10); ADD DIFF? NO; ADD MORPH? NO; ADD SCAN? NO; ATYPICAL LYMPHOCYTE FLAG 20 (0-99); FRAGMENT RBC FLAG 0 (0-99); HEMATOCRIT 37.1 % (38.0-47.0); HEMOGLOBIN 12.9 g/dL (12.6-16.3); LEFT SHIFT FLG 0 (0-99); LIPEMIA HEMOLYSIS FLAG 90 (0-99); MEAN CELL HEMOGLOBIN 34.5 pg (27.9-34.1); MEAN CELL HEMOGLOBIN CONCENTR. 34.8 g/dL (32.4-36.7); MEAN CELL VOLUME 99.2 fL (81.5-99.8); MEAN PLATELET VOLUME 10.7 fL (8.7-11.7); PLATELET CLUMPS FLAG 0 (0-99); PLATELET COUNT 132 10^3/uL (150-400); RED BLOOD CELL COUNT 3.74 10^6/uL (4.18-5.33); RED CELL DISTRIBUTION WIDTH 11.5 % (11.5-15.2)
[2016-10-23 02:42] LABS: ALANINE AMINOTRANSFERASE 23 IU/L (9-52); ALBUMIN 4.3 g/dL (3.5-5.0); ALKALINE PHOSPHATASE 139 IU/L (38-126); ANION GAP 13 mEq/L (8-16); ASPARTATE AMINOTRANSFERASE 30 IU/L (14-46); BILIRUBIN,TOTAL 1.8 mg/dL (0.1-1.4); CALCIUM 9.5 mg/dL (8.5-10.4); CARBON DIOXIDE 21 mEq/l (22-31); CHLORIDE 100 mEq/L (97-110); CREATININE 0.7 mg/dL (0.6-1.0); GLOMERULAR FILTRATION RATE > 60; GLUCOSE 106 mg/dL (70-100); POTASSIUM 3.5 mEq/L (3.5-5.2); SODIUM 134 mEq/L (134-144); TOTAL PROTEIN 6.8 g/dL (6.3-8.2)
[2016-10-23 04:08] VITALS: BP 124/80
--- NOTE | 2016-10-23 04:43 | EDPHY ---
H & P Stated Complaint: + ETOH,NAUSEA Time Seen by Provider: 10/23/16 02:06 HPI/ROS: HPI The patient presents brought in by ambulance for nausea and weakness which has been going on for the last 1 day she says. She was found by paramedics on the ground not wearing any pants in her house. She says her main complaint is nausea without any vomiting. The nausea has been constant, she has not taken any medications for it, she rates it as severe. Her last drink was at 10:00 a.m.. She has been drinking about a pt of alcohol a day. She was admitted to the hospital a few days ago for atrial fibrillation with RVR.. REVIEW OF SYSTEMS Constitutional: No fever, no chills. Eyes: No discharge. ENT: No sore throat. Cardiovascular: No chest pain, no palpitations. Respiratory: No cough, no shortness of breath. Gastrointestinal: No abdominal pain, no vomiting. Genitourinary: No hematuria. Musculoskeletal: No back pain. Skin: No rashes. Neurological: No headache. PMHx: Atrial fib with RVR, chronic alcohol abuse with history of withdrawal, history of pancreatitis Soc Hx: Alcohol abuse, lives at home PHYSICAL General Appearance: Alert, slightly tremulous Eyes: Pupils equal and round no pallor or injection ENT, Mouth: Mucous membranes dry Respiratory: There are no retractions, lungs are clear to auscultation Cardiovascular: Regular rate and rhythm Gastrointestinal: Abdomen is soft and non-tender, no masses, bowel sounds normal Neurological: A&O, moves all extremities Skin: Warm and dry, no rashes Musculoskeletal: Neck is supple non tender Extremities: symmetrical, full range of motion Psychiatric: Patient is oriented X 3, there is no agitation Source: Patient, EMS - Personal History Current Tetanus Diphtheria and Acellular Pertussis (TDAP): Yes Tetanus Vaccine Date: 2014 - Medical/Surgical History Hx Asthma: No Hx Chronic Respiratory Disease: No Hx Diabetes: No Hx Cardiac Disease: Yes Hx Renal Disease: No Hx Cirrhosis: No Hx Alcoholism: Yes Hx HIV/AIDS: No Hx Splenectomy or Spleen Trauma: No Other PMH: PMHx: Alcoholism, degenerative disc disease, osteoarthritis, scoliosis, heart murmur, a-fib, C difficile-Dec 2015, hx withdrawal, pancreatitis. PSHx: tonsillectomy - Social History Smoking Status: Never smoked Constitutional: Initial Vital Signs Temperature (C) 36.7 C 10/23/16 01:53 Heart Rate 78 10/23/16 01:53 Respiratory Rate 16 10/23/16 01:53 Blood Pressure 115/73 10/23/16 01:53 O2 Sat (%) 98 10/23/16 01:53 O2 Delivery Mode Room Air O2 (L/minute) 2 Allergies/Adverse Reactions: Sulfa (Sulfonamide Antibiotics) Allergy (Mild, Verified 10/18/16 22:35) Rash Home Medications: Medication Instructions Recorded Sertraline HCl [Zoloft 50mg (*)] 75 mg PO DAILY 03/14/16 Diltiazem Xr [Dilacor Xr] 240 mg PO DAILY #30 cap 04/24/16 Aspirin EC [Aspirin EC 81 mg (*)] 81 mg PO DAILY 09/22/16 Herbals/Supplements -Info Only 1 ea PO DAILY 09/22/16 Medical Decision Making Differential Diagnosis: This is a 61-year-old female with history of alcohol abuse, alcohol withdrawal, pancreatitis, atrial fibrillation with RVR who presents brought in by ambulance for nausea and weakness. I met the paramedics at the bedside to obtain report. An IV was established and the patient was given fluids for presumed volume depletion. She was given 1 mg Ativan IV for alcohol withdrawal. Labs were test checked and were generally unremarkable and are baseline for her and comparison to labs were performed 4 days ago. The patient's vital signs remained normal throughout her stay. There is no evidence of atrial fibrillation. She was able to walk to the bathroom without difficulty. I feel she is likely dehydrated and in mild alcohol withdrawal. She will be discharged home. Differential diagnoses considered include anemia, electrolyte disturbance, renal failure, dehydration, alcohol withdrawal, pancreatitis, atrial fibrillation with RVR. - Data Points Laboratory Results: Laboratory Results 10/23/16 02:25 10/23/16 02:25 10/23/16 10/23/16 02:25 02:25 WBC 6.56 10^3/uL 10^3/uL (3.80-9.50) RBC 3.74 10^6/uL L 10^6/uL (4.18-5.33) Hgb 12.9 g/dL g/dL (12.6-16.3) Hct 37.1 % L % (38.0-47.0) MCV 99.2 fL fL (81.5-99.8) MCH 34.5 pg H pg (27.9-34.1) MCHC 34.8 g/dL g/dL (32.4-36.7) RDW 11.5 % % (11.5-15.2) Plt Count 132 10^3/uL L 10^3/uL (150-400) MPV 10.7 fL fL (8.7-11.7) Neut % (Auto) 77.6 % H % (39.3-74.2) Lymph % (Auto) 14.6 % L % (15.0-45.0) [place] % (Auto) 5.6 % % (4.5-13.0) Eos % (Auto) 1.2 % % (0.6-7.6) Baso % (Auto) 0.5 % % (0.3-1.7) Nucleat RBC Rel Count 0.0 % % (0.0-0.2) Absolute Neuts (auto) 5.09 10^3/uL 10^3/uL (1.70-6.50) Absolute Lymphs (auto) 0.96 10^3/uL L 10^3/uL (1.00-3.00) Absolute Monos (auto) 0.37 10^3/uL 10^3/uL (0.30-0.80) Absolute Eos (auto) 0.08 10^3/uL 10^3/uL (0.03-0.40) Absolute Basos (auto) 0.03 10^3/uL 10^3/uL (0.02-0.10) Absolute Nucleated RBC 0.00 10^3/uL 10^3/uL (0-0.01) Immature Gran % 0.5 % % (0.0-1.1) Immature Gran # 0.03 10^3/uL 10^3/uL (0.00-0.10) Sodium 134 mEq/L mEq/L (134-144) Potassium 3.5 mEq/L mEq/L (3.5-5.2) Chloride 100 mEq/L mEq/L (97-110) Carbon Dioxide 21 mEq/l L mEq/l (22-31) Anion Gap 13 mEq/L mEq/L (8-16) BUN 8 mg/dL mg/dL (7-23) Creatinine 0.7 mg/dL mg/dL (0.6-1.0) Estimated GFR > 60 Glucose 106 mg/dL H mg/dL (70-100) Calcium 9.5 mg/dL mg/dL (8.5-10.4) Total Bilirubin 1.8 mg/dL H mg/dL (0.1-1.4) AST 30 IU/L IU/L (14-46) ALT 23 IU/L IU/L (9-52) Alkaline Phosphatase 139 IU/L H IU/L (38-126) Total Protein 6.8 g/dL g/dL (6.3-8.2) Albumin 4.3 g/dL g/dL (3.5-5.0) Lipase 296.0 IU/L IU/L (23-300) Medications Given: Discontinued Medications Sodium Chloride (Ns) 1,000 mls @ 0 mls/hr IV ONCE ONE PRN Reason: Wide Open Stop: 10/23/16 02:09 Last Admin: 10/23/16 02:32 Dose: 1,000 mls Sodium Chloride (Ns) 1,000 mls @ 0 mls/hr IV ONCE ONE PRN Reason: Wide Open Stop: 10/23/16 03:11 Last Admin: 10/23/16 03:15 Dose: 1,000 mls Lorazepam (Ativan Injection) 1 mg IVP EDNOW ONE Stop: 10/23/16 02:09 Last Admin: 10/23/16 02:31 Dose: 1 mg Ondansetron HCl (Zofran) 4 mg IVP EDNOW ONE Stop: 10/23/16 02:28 Last Admin: 10/23/16 02:32 Dose: 4 mg Ondansetron HCl (Zofran) 4 mg IVP EDNOW ONE Stop: 10/23/16 04:27 Last Admin: 10/23/16 04:27 Dose: 4 mg Departure - Departure Disposition: Home, Routine, Self-Care Clinical Impression: Alcohol dependence Qualifiers: Substance use status: unspecified alcohol-induced disorder Qualified Code(s): F10.29 - Alcohol dependence with unspecified alcohol-induced disorder Nausea & vomiting Qualifiers: Vomiting type: unspecified Vomiting Intractability: non-intractable Qualified Code(s): R11.2 - Nausea with vomiting, unspecified Condition: Good Instructions: Abuse of Alcohol (ED) Additional Instructions: Please follow-up with your correctional case manager in the next 1 day. Return to the emergency room if your worse in any way. Referrals: Harriet Nelson MD [Primary Care Provider] - As per Instructions
[2016-10-23 04:52] VITALS: PULSE 72; RESP 18; TEMP 97.5; O2SAT 92
== END 2016-10-23 05:35 | disposition home or self-care (01) ==
LOC: EDUNIT#
DX: F10.29 Alcohol dependence with unspecified alcohol-induced disorder (principal); R11.2 Nausea with vomiting, unspecified; Z79.82 Long term (current) use of aspirin
CPT/HCPCS: 96374; J2060; J2405

== ENCOUNTER 2016-11-10 12:51 | Emergency (ER) | payer MEDICAID ==
[2016-11-10 12:58] VITALS: TEMP 98.4
[2016-11-10] MEDS ORDERED: NS 1,000 ML IV ONE ×2 (13:41→17:37)
[2016-11-10] MEDS ORDERED: ONDANSETRON 4 MG/2 ML VIAL IVP ONE (13:41)
[2016-11-10] MEDS ORDERED: LORazepam 2 MG/ML INJ IVP ONE (13:42)
[2016-11-10 13:50] LABS: % IMMATURE GRANULYOCYTES 0.2 % (0.0-1.1); ABSOLUTE IMMATURE GRANULOCYTES 0.01 10^3/uL (0.00-0.10); ADD DIFF? NO; ADD MORPH? NO; ADD SCAN? NO; ATYPICAL LYMPHOCYTE FLAG 0 (0-99); FRAGMENT RBC FLAG 0 (0-99); HEMATOCRIT 46.2 % (38.0-47.0); HEMOGLOBIN 16.2 g/dL (12.6-16.3); LEFT SHIFT FLG 0 (0-99); LIPEMIA HEMOLYSIS FLAG 90 (0-99); MEAN CELL HEMOGLOBIN 34.6 pg (27.9-34.1); MEAN CELL HEMOGLOBIN CONCENTR. 35.1 g/dL (32.4-36.7); MEAN CELL VOLUME 98.7 fL (81.5-99.8); MEAN PLATELET VOLUME 10.1 fL (8.7-11.7); PLATELET CLUMPS FLAG 0 (0-99); PLATELET COUNT 121 10^3/uL (150-400); RED BLOOD CELL COUNT 4.68 10^6/uL (4.18-5.33); RED CELL DISTRIBUTION WIDTH 13.3 % (11.5-15.2)
--- NOTE | 2016-11-10 14:04 | EDPHY ---
H & P Stated Complaint: Vomiiting for 12 hrs CP for 6 hrs Source: Patient Exam Limitations: No limitations - Personal History Current Tetanus/Diphtheria Vaccine: Yes Current Tetanus Diphtheria and Acellular Pertussis (TDAP): Yes Tetanus Vaccine Date: 2014 - Medical/Surgical History Hx Asthma: No Hx Chronic Respiratory Disease: No Hx Diabetes: No Hx Cardiac Disease: Yes Hx Renal Disease: No Hx Cirrhosis: No Hx Alcoholism: Yes Hx HIV/AIDS: No Hx Splenectomy or Spleen Trauma: No Other PMH: PMHx: Alcoholism, degenerative disc disease, osteoarthritis, scoliosis, heart murmur, a-fib, C difficile-Dec 2015, hx withdrawal, pancreatitis. PSHx: tonsillectomy - Social History Smoking Status: Never smoked Time Seen by Provider: 11/10/16 13:32 HPI/ROS: CHIEF COMPLAINT: Vomiting, alcohol withdrawal HISTORY OF PRESENT ILLNESS: The patient presents to the ED with a 1 day history of vomiting and symptoms of alcohol withdrawal. The patient is a chronic alcoholic. She presents with symptoms for the past 12 hours. The patient states her last drink was last night. The patient does have a history of chronic atrial fibrillation. She is on diltiazem for this. The patient does not take anticoagulants. The patient currently complains of moderate epigastric pain. She also complains of mild left anterior chest pain. The patient denies melena or hematemesis. REVIEW OF SYSTEMS: A comprehensive 10 point review of systems is otherwise negative aside from elements mentioned in the history of present illness. (Jose Torres) - Physical Exam Exam: General Appearance: Alert, tremulous, no acute distress Eyes: Pupils equal and round no pallor or injection ENT, Mouth: Mucous membranes moist Respiratory: There are no retractions, lungs are clear to auscultation Cardiovascular: Tachycardic Gastrointestinal: Tenderness to palpation left upper quadrant Neurological: A&O, normal motor function, normal sensory exam, normal cranial nerves Skin: Warm and dry, no rashes Musculoskeletal: Neck is supple nontender Extremities: symmetrical, full range of motion (Jose Torres) Constitutional: Initial Vital Signs Temperature (C) 36.9 C 11/10/16 12:56 Heart Rate 106 H 11/10/16 12:56 Respiratory Rate 16 11/10/16 12:56 Blood Pressure 126/90 H 11/10/16 12:56 O2 Sat (%) 98 11/10/16 12:56 O2 Delivery Mode Room Air O2 (L/minute) 2 Allergies/Adverse Reactions: Sulfa (Sulfonamide Antibiotics) Allergy (Mild, Verified 10/18/16 22:35) Rash Home Medications: Medication Instructions Recorded Sertraline HCl [Zoloft 50mg (*)] 75 mg PO DAILY 03/14/16 Diltiazem Xr [Dilacor Xr] 240 mg PO DAILY #30 cap 04/24/16 Aspirin EC [Aspirin EC 81 mg (*)] 81 mg PO DAILY 09/22/16 Herbals/Supplements -Info Only 1 ea PO DAILY 09/22/16 chlordiazePOXIDE [Librium 25 mg 1 - 2 cap PO Q6 PRN #15 cap 11/10/16 (*)] Medical Decision Making ED Course/Re-evaluation: 5:20 p.m.-this patient was seen by Dr. Gillespie and he decided to send the patient home. She is feeling much better and is not vomiting. Lipase is elevated, though she denies abdominal pain, so clinically she does not have acute pancreatitis.. Abdomen is soft and nontender. The patient was instructed to follow up with primary care physician tomorrow for recheck. (Erma Luis) The patient had an IV established. The patient presents to the ED with symptoms consistent with alcohol withdrawal. She received 4 mg of IV Zofran, 1 mg of IV Ativan and 2 L of normal saline. I reviewed the patient's past medical records. The patient presents to the ED with alcohol withdrawal. The patient is noted to have mild pancreatitis. The patient will be admitted to the hospital for further evaluation management. Consultation was made with Dr. Gillespie from the hospitalist service who will admit the patient. (Jose Torres) Differential Diagnosis: Differential diagnosis considered includes alcohol withdrawal, pancreatitis, metabolic abnormality, renal failure (Jose Torres) - Data Points Laboratory Results: Laboratory Results 11/10/16 13:35 11/10/16 13:35 Medications Given: Discontinued Medications Sodium Chloride (Ns) 1,000 mls @ 0 mls/hr IV EDNOW ONE; Wide Open PRN Reason: Protocol Stop: 11/10/16 13:42 Last Admin: 11/10/16 13:52 Dose: 1,000 mls Sodium Chloride (Ns) 1,000 mls @ 0 mls/hr IV ONCE ONE PRN Reason: Wide Open Stop: 11/10/16 17:38 Last Admin: 11/10/16 15:00 Dose: 1,000 mls Lorazepam (Ativan Injection) 1 mg IVP EDNOW ONE Stop: 11/10/16 13:43 Last Admin: 11/10/16 13:51 Dose: 1 mg Ondansetron HCl (Zofran) 4 mg IVP EDNOW ONE Stop: 11/10/16 13:42 Last Admin: 11/10/16 13:54 Dose: 4 mg Departure - Departure Disposition: Home, Routine, Self-Care Clinical Impression: Alcohol withdrawal Condition: Good Referrals: Harriet Nelson MD [Primary Care Provider] - As per Instructions Prescriptions: chlordiazePOXIDE [Librium 25 mg (*)] 1 - 2 cap PO Q6 PRN #15 cap PRN Reason: for alcohol withdrawal
[2016-11-10 14:16] LABS: ANION GAP 21 mEq/L (8-16); CALCIUM 9.7 mg/dL (8.5-10.4); CARBON DIOXIDE 17 mEq/l (22-31); CHLORIDE 99 mEq/L (97-110); CREATININE 0.7 mg/dL (0.6-1.0); GLOMERULAR FILTRATION RATE > 60; GLUCOSE 95 mg/dL (70-100); POTASSIUM 4.7 mEq/L (3.5-5.2); SODIUM 137 mEq/L (134-144)
--- NOTE | 2016-11-10 14:42 | CPEKG ---
Heart Rate: 77 RR Interval: 779 P-R Interval: 184 QRSD Interval: 70 QT Interval: 448 QTC Interval: 508 P [place]: 58 QRS [place]: -2 T Wave [place]: 10 EKG Severity - BORDERLINE ECG - EKG Impression: SINUS RHYTHM EKG Impression: LOW VOLTAGE THROUGHOUT EKG Impression: BORDERLINE PROLONGED QT INTERVAL Electronically Signed By: Otis Tom 10-Nov-2016 21:04:36
[2016-11-10 17:37] VITALS: BP 129/75; PULSE 85; RESP 16; O2SAT 95
--- NOTE | 2016-11-10 22:41 | GCON ---
[f rep st] CONSULTATION INTERNAL MEDICINE CONSULTATION DATE OF CONSULTATION: 11/10/2016 REFERRING PHYSICIAN: Jose Torres MD CHIEF COMPLAINT: Nausea, vomiting. HISTORY OF PRESENT ILLNESS: This is a 61-year-old female with a history of alcoholism and previous history of pancreatitis. She usually has nausea and vomiting when she quits alcohol. She quit last night and wants to quit alcohol once again and started vomiting this morning. The ER physician was going to admit her, but in talking with the patient she states she is feeling a lot better and want s to go home. She is not having any abdominal pain. Her lipase is elevated at 700 but she, again, denies any abdominal pain. She is not vomiting and was wanting to go home with outpatient treatment . She is not having any fevers or chills. REVIEW OF SYSTEMS: A 10-point review of systems was obtained on this date and was negative. PAST MEDICAL HISTORY: 1. Alcoholism. 2. Previous episodes of pancreatitis. 3. Atrial fibrillation. 4. History of alcohol withdrawal seizure. 5. History of scoliosis with chronic back pain. MEDICATIONS: Reviewed. ALLERGIES: Sulfa. SOCIAL HISTORY: No smoking. Drinks about a pint of vodka a day. Lives alone. FAMILY HISTORY: Reviewed and noncontributory. PHYSICAL EXAM: VITAL SIGNS: Afebrile. Blood pressure is 129/75, heart rate 85, oxygen saturation 95% on room air. GENERAL: The patient is well developed, in no apparent distress. HEENT: [place] jamal sclerae. Extraocular movements intact. Moist mucous membranes. NECK: Supple. No thyromegaly . LUNGS: Good effort. Clear to auscultation bilaterally. CARDIOVASCULAR: Regular rate and rhyth m. No murmurs or gallops. ABDOMEN: Positive bowel sounds. Soft. No epigastric tenderness. No r ebound or guarding. EXTREMITIES: No clubbing, cyanosis, or edema. SKIN: Without rash, warm, inta ct. NEUROLOGIC: Alert and oriented x3. Moving all 4 extremities equally. PSYCH: Normal mood and affect. LABS: CBC is essentially normal. Chemistries normal. Lipase slightly elevated at 771. ASSESSMENT: This is a 61-year-old female with a history of nausea, vomiting with alcohol withdrawal , presenting more the same. PLAN: 1. Alcohol withdrawal. The patient is not tremulous nor is she tachycardic, and she is mentating andrew venegas. I think she can be treated outpatient with Librium. Her nausea, vomiting have resolved and tevin west is wanting to go home. 2. Elevated lipase. The patient is not endorsing any abdominal pain, is not having any abdominal t enderness. This may be some mild pancreatic inflammation, but I think she can go home and try a lig ht diet at home. I have discussed the case with Dr. Luis, who will discharge the patient. /[id number]/MODL
== END 2016-11-10 17:39 | disposition home or self-care (01) ==
LOC: UNDOADMOB 15:12
DX: F10.239 Alcohol dependence with withdrawal, unspecified (principal); E86.9 Volume depletion, unspecified; Z79.82 Long term (current) use of aspirin
CPT/HCPCS: 96374; J2060; J2405

== ENCOUNTER 2016-11-21 04:49 | Emergency (ER) | payer MEDICAID ==
[2016-11-21 04:55] VITALS: RESP 18
[2016-11-21] MEDS ORDERED: ONDANSETRON 4 MG/2 ML VIAL IVP ONE (05:02)
[2016-11-21] MEDS ORDERED: NS 1,000 ML IV ONE (05:02)
--- NOTE | 2016-11-21 05:02 | EDPHY ---
H & P Stated Complaint: c/o n/v related to etoh withdrawal x 11 hrs HPI/ROS: HPI CHIEF COMPLAINT: Nausea, vomiting, alcohol withdrawl HISTORY OF PRESENT ILLNESS: This patient is 61-year-old female, she presents emergency room with nausea vomiting after she states she is in alcohol withdrawal, she has had nausea vomiting. Her last drink was 2 days ago. Of note I am very familiar with this patient. She also comes emergency room with nausea vomiting with alcohol draw. She denies chest pain or shortness of breath. Denies abdominal pain. Has nausea and feels anxious. She is requesting IV fluids Zofran and Ativan. Past Medical History: AFib, alcoholism Past Surgical History: Denies recent surgery Social History: Daily alcohol use, denies drugs or tobacco Family History: Noncontributory ROS REVIEW OF SYSTEMS: A comprehensive 10 point review of systems is otherwise negative aside from elements mentioned in the history of present illness. Exam Constitutional anxious, triage nursing summary reviewed, vital signs reviewed, awake/alert. Eyes normal conjunctivae and sclera, EOMI, PERRLA. HENT normal inspection, atraumatic, moist mucus membranes, no epistaxis, neck supple/ no meningismus, no raccoon eyes. Respiratory clear to auscultation bilaterally, normal breath sounds, no respiratory distress, no wheezing. Cardiovascular rate normal, regular rhythm, no murmur, no edema, distal pulses normal. Gastrointestinal soft, non-tender, no rebound, no guarding, normal bowel sounds, no distension, no pulsatile mass. Genitourinary no CVA tenderness. Musculoskeletal no midline vertebral tenderness, full range of motion, no calf swelling, no tenderness of extremities, no meningismus, good pulses, neurovascularly intact. Skin pink, warm, & dry, no rash, skin atraumatic. Neurologic awake, alert and oriented x 3, AAOx3, moves all 4 extremities equally, motor intact, sensory intact, CN II-XII intact, normal cerebellar, normal vision, normal speech. Slightly tremulous. Psychiatric normal mood/affect. Heme/Lymph/Immune no lymphadenopathy. Differential Diagnosis: Includes but is not limited to in a particular order alcohol withdrawal, dehydration, electrolyte disturbance, acute nausea vomiting from alcohol draw. Anxiety Medical Decision Making: Plan for this patient IV establishment, IV fluid bolus 1 L normal saline, IV Ativan for anxiety, IV Zofran for nausea. Re- evaluate. Re-evaluation: [id number]: Re-evaluation this time patient resting comfortably feels much better. Requesting to be discharged home. Source: Patient - Personal History Tetanus Vaccine Date: 2014 - Medical/Surgical History Hx Asthma: No Hx Chronic Respiratory Disease: No Hx Diabetes: No Hx Cardiac Disease: Yes Hx Renal Disease: No Hx Cirrhosis: No Hx Alcoholism: Yes Hx HIV/AIDS: No Hx Splenectomy or Spleen Trauma: No Other PMH: PMHx: Alcoholism, degenerative disc disease, osteoarthritis, scoliosis, heart murmur, a-fib, C difficile-Dec 2015, hx withdrawal, pancreatitis. PSHx: tonsillectomy - Social History Smoking Status: Never smoked Constitutional: Initial Vital Signs Temperature (C) 36.5 C 11/21/16 04:53 Heart Rate 86 11/21/16 04:53 Respiratory Rate 18 11/21/16 04:53 Blood Pressure 146/92 H 11/21/16 04:53 O2 Sat (%) 97 11/21/16 04:53 O2 Delivery Mode Room Air Allergies/Adverse Reactions: Sulfa (Sulfonamide Antibiotics) Allergy (Mild, Verified 11/21/16 04:56) Rash Home Medications: Medication Instructions Recorded Sertraline HCl [Zoloft 50mg (*)] 75 mg PO DAILY 03/14/16 Diltiazem Xr [Dilacor Xr] 240 mg PO DAILY #30 cap 04/24/16 Aspirin EC [Aspirin EC 81 mg (*)] 81 mg PO DAILY 09/22/16 Herbals/Supplements -Info Only 1 ea PO DAILY 09/22/16 chlordiazePOXIDE [Librium 25 mg 1 - 2 cap PO Q6 PRN #15 cap 11/10/16 (*)] Medical Decision Making - Data Points Laboratory Results: Laboratory Results 11/21/16 05:30 11/21/16 05:30 11/21/16 11/21/16 05:30 05:30 WBC 5.84 10^3/uL 10^3/uL (3.80-9.50) RBC 4.19 10^6/uL 10^6/uL (4.18-5.33) Hgb 14.7 g/dL g/dL (12.6-16.3) Hct 42.6 % % (38.0-47.0) MCV 101.7 fL H fL (81.5-99.8) MCH 35.1 pg H pg (27.9-34.1) MCHC 34.5 g/dL g/dL (32.4-36.7) RDW 15.8 % H % (11.5-15.2) Plt Count 108 10^3/uL L 10^3/uL (150-400) MPV 10.2 fL fL (8.7-11.7) Neut % (Auto) 83.5 % H % (39.3-74.2) Lymph % (Auto) 8.4 % L % (15.0-45.0) [place] % (Auto) 7.5 % % (4.5-13.0) Eos % (Auto) 0.0 % L % (0.6-7.6) Baso % (Auto) 0.3 % % (0.3-1.7) Nucleat RBC Rel Count 0.0 % % (0.0-0.2) Absolute Neuts (auto) 4.87 10^3/uL 10^3/uL (1.70-6.50) Absolute Lymphs (auto) 0.49 10^3/uL L 10^3/uL (1.00-3.00) Absolute Monos (auto) 0.44 10^3/uL 10^3/uL (0.30-0.80) Absolute Eos (auto) 0.00 10^3/uL L 10^3/uL (0.03-0.40) Absolute Basos (auto) 0.02 10^3/uL 10^3/uL (0.02-0.10) Absolute Nucleated RBC 0.00 10^3/uL 10^3/uL (0-0.01) Immature Gran % 0.3 % % (0.0-1.1) Immature Gran # 0.02 10^3/uL 10^3/uL (0.00-0.10) Sodium 140 mEq/L mEq/L (134-144) Potassium 4.0 mEq/L mEq/L (3.5-5.2) Chloride 102 mEq/L mEq/L (97-110) Carbon Dioxide 16 mEq/l L mEq/l (22-31) Anion Gap 22 mEq/L H mEq/L (8-16) BUN 6 mg/dL L mg/dL (7-23) Creatinine 0.6 mg/dL mg/dL (0.6-1.0) Estimated GFR > 60 Glucose 110 mg/dL H mg/dL (70-100) Calcium 9.1 mg/dL mg/dL (8.5-10.4) Ethyl Alcohol < 10 mg/dL mg/dL (0-10) Medications Given: Discontinued Medications Sodium Chloride (Ns) 1,000 mls @ 0 mls/hr IV EDNOW ONE; Wide Open PRN Reason: Protocol Stop: 11/21/16 05:03 Last Admin: 11/21/16 05:36 Dose: 1,000 mls Lorazepam (Ativan Injection) 1 mg IVP EDNOW ONE Stop: 11/21/16 05:10 Last Admin: 11/21/16 05:36 Dose: 1 mg Ondansetron HCl (Zofran) 4 mg IVP EDNOW ONE Stop: 11/21/16 05:03 Last Admin: 11/21/16 05:36 Dose: 4 mg Departure - Departure Disposition: Home, Routine, Self-Care Clinical Impression: Alcohol withdrawal Qualifiers: Complication of substance-induced condition: uncomplicated Qualified Code(s): F10.230 - Alcohol dependence with withdrawal, uncomplicated Vomiting Qualifiers: Vomiting type: unspecified Vomiting Intractability: intractable Nausea presence : with nausea Qualified Code(s): R11.2 - Nausea with vomiting, unspecified Condition: Good Instructions: Acute Nausea and Vomiting (ED), Alcohol Withdrawal (ED) Referrals: Harriet Nelson MD [Primary Care Provider] - As per Instructions
[2016-11-21] MEDS ORDERED: LORazepam 2 MG/ML INJ IVP ONE (05:09)
[2016-11-21 05:39] LABS: % IMMATURE GRANULYOCYTES 0.3 % (0.0-1.1); ABSOLUTE IMMATURE GRANULOCYTES 0.02 10^3/uL (0.00-0.10); ADD DIFF? NO; ADD MORPH? NO; ADD SCAN? NO; ATYPICAL LYMPHOCYTE FLAG 0 (0-99); FRAGMENT RBC FLAG 0 (0-99); HEMATOCRIT 42.6 % (38.0-47.0); HEMOGLOBIN 14.7 g/dL (12.6-16.3); LEFT SHIFT FLG 0 (0-99); LIPEMIA HEMOLYSIS FLAG 90 (0-99); MEAN CELL HEMOGLOBIN 35.1 pg (27.9-34.1); MEAN CELL HEMOGLOBIN CONCENTR. 34.5 g/dL (32.4-36.7); MEAN CELL VOLUME 101.7 fL (81.5-99.8); MEAN PLATELET VOLUME 10.2 fL (8.7-11.7); PLATELET CLUMPS FLAG 0 (0-99); PLATELET COUNT 108 10^3/uL (150-400); RED BLOOD CELL COUNT 4.19 10^6/uL (4.18-5.33); RED CELL DISTRIBUTION WIDTH 15.8 % (11.5-15.2)
[2016-11-21 06:00] LABS: ANION GAP 22 mEq/L (8-16); CALCIUM 9.1 mg/dL (8.5-10.4); CARBON DIOXIDE 16 mEq/l (22-31); CHLORIDE 102 mEq/L (97-110); CREATININE 0.6 mg/dL (0.6-1.0); ETHANOL SERUM < 10 mg/dL (0-10); GLOMERULAR FILTRATION RATE > 60; GLUCOSE 110 mg/dL (70-100); SODIUM 140 mEq/L (134-144)
[2016-11-21 07:25] VITALS: BP 129/74; PULSE 72; TEMP 99.3; O2SAT 96
== END 2016-11-21 07:15 | disposition home or self-care (01) ==
DX: F10.230 Alcohol dependence with withdrawal, uncomplicated (principal); E86.9 Volume depletion, unspecified; Z79.82 Long term (current) use of aspirin
CPT/HCPCS: 96374; G0480; J2060; J2405

== ENCOUNTER 2016-12-05 18:18 | Emergency (ER) | payer MEDICAID ==
[2016-12-05] MEDS ORDERED: NS 1,000 ML IV ONE (19:36)
[2016-12-05] MEDS ORDERED: ONDANSETRON 4 MG/2 ML VIAL IVP ONE (19:36)
[2016-12-05] MEDS ORDERED: LORazepam 2 MG/ML INJ IVP ONE (19:39)
--- NOTE | 2016-12-05 19:39 | EDPHY ---
HPI/HX/ROS/PE/MDM Narrative: CHIEF COMPLAINT: Vomiting HPI: The patient is a 61-year-old female with a history of severe alcoholism and pancreatitis. This is the patient's approximately 24th visit to this emergency department within the last year for very similar symptoms. The patient states she began throwing up this morning. On 1 episode of emesis she noted small blood streaks in it. She complains of diffuse malaise, pain in her liver and nausea. She denies recent trauma. REVIEW OF SYSTEMS: Aside from elements discussed in the HPI, a comprehensive 10-point review of systems was reviewed and is negative. PMH: Includes alcohol withdrawal, alcoholism, pancreatitis, atrial fibrillation. SOCIAL HISTORY: Last drink was last night. Admits to alcoholism. Denies drug abuse. PHYSICAL EXAM: General:Patient is alert, in no acute distress. ENT:Eyes are normal to inspection. ENT inspection normal. Neck: Normal inspection. Full range of motion. Respiratory:No respiratory distress. Breath sounds normal bilaterally. Cardiovascular: Tachycardic rate and regular rhythm. Strong peripheral pulses. Normal cap refill. Abdomen:The abdomen is nontender to palpation. There are no peritoneal signs. There are normal bowel sounds. Back: Normal to inspection. No tenderness to palpation. Skin: Normal color. No rash. Warm and dry. Extremities: Normal appearance. Full range of motion. Neuro: Oriented x3. Normal motor function. Normal sensory function. Mild diffuse tremor. (Armaan Yap) ED Course: Re-evaluation 10:10 p.m. Patient has been a hard IV access patient. She has a small IV in her wrist and has received 600 cc of saline. She is feeling better. 2nd IV attempt to place a bare IV get bloods is being performed right now Re-evaluation 11:00 p.m. in patient is taking oral ice chips. We have a good IV in place and patient is receiving fluids. Recheck again at 11:25 p.m.. Patient has no pain. She is now drinking fluids. She feels well. She would like to go home. Patient and I discussed laboratory evaluation, treatment plan, criteria for return and importance of follow-up and further evaluation. She expresses understanding and agreement (Romel Trejo) MDM: This patient is well-known to the emergency department and complains again of vomiting. She describes very small amount of blood and 1 episode of emesis earlier today. She is holding a cup with emesis in it and I see no evidence of coffee-grounds or hematemesis. We will await blood work to confirm no evidence of acute GI bleed or pancreatitis. I have signed the patient out to Dr. Romel Trejo pending these results. I anticipate discharge home if these are normal. The patient is not currently in severe alcohol withdrawal. (Armaan Yap) Patient has mild pancreatitis however no pain with this and had been having nausea vomiting. She is now taking fluids without difficulty. She feels comfortable being treated as an outpatient (Romel Trejo) - Data Points Laboratory Results: Laboratory Results 12/05/16 22:54 12/05/16 22:54 12/05/16 12/05/16 12/05/16 22:54 22:54 22:20 WBC 6.31 10^3/uL 10^3/uL REJ (3.80-9.50) RBC 3.87 10^6/uL L 10^6/uL REJ (4.18-5.33) Hgb 13.9 g/dL g/dL REJ (12.6-16.3) Hct 39.5 % % REJ (38.0-47.0) MCV 102.1 fL H fL REJ (81.5-99.8) MCH 35.9 pg H pg REJ (27.9-34.1) MCHC 35.2 g/dL g/dL REJ (32.4-36.7) RDW 15.4 % H % REJ (11.5-15.2) Plt Count 125 10^3/uL L 10^3/uL REJ (150-400) MPV 10.1 fL fL REJ (8.7-11.7) Neut % (Auto) 81.5 % H % REJ (39.3-74.2) Lymph % (Auto) 12.5 % L % REJ (15.0-45.0) Hubbard % (Auto) 5.1 % % REJ (4.5-13.0) Eos % (Auto) 0.0 % L % REJ (0.6-7.6) Baso % (Auto) 0.6 % % REJ (0.3-1.7) Nucleat RBC Rel Count 0.0 % % REJ (0.0-0.2) Absolute Neuts (auto) 5.14 10^3/uL 10^3/uL REJ (1.70-6.50) Absolute Lymphs (auto) 0.79 10^3/uL L 10^3/uL REJ (1.00-3.00) Absolute Monos (auto) 0.32 10^3/uL 10^3/uL REJ (0.30-0.80) Absolute Eos (auto) 0.00 10^3/uL L 10^3/uL REJ (0.03-0.40) Absolute Basos (auto) 0.04 10^3/uL 10^3/uL REJ (0.02-0.10) Absolute Nucleated RBC 0.00 10^3/uL 10^3/uL REJ (0-0.01) Immature Gran % 0.3 % % REJ (0.0-1.1) Immature Gran # 0.02 10^3/uL 10^3/uL REJ (0.00-0.10) Sodium 134 mEq/L mEq/L (134-144) Potassium 5.7 mEq/L H mEq/L (3.5-5.2) Chloride 103 mEq/L mEq/L (97-110) Carbon Dioxide 19 mEq/l L mEq/l (22-31) Anion Gap 12 mEq/L mEq/L (8-16) BUN 6 mg/dL L mg/dL (7-23) Creatinine 0.6 mg/dL mg/dL (0.6-1.0) Estimated GFR > 60 Glucose 87 mg/dL mg/dL (70-100) Calcium 8.3 mg/dL L mg/dL (8.5-10.4) Lipase 582.0 IU/L H IU/L (23-300) Specimen Hemolysis 175 Medications Given: Discontinued Medications Sodium Chloride (Ns) 1,000 mls @ 0 mls/hr IV EDNOW ONE; Wide Open PRN Reason: Protocol Stop: 12/05/16 19:37 Last Admin: 12/05/16 20:27 Dose: 1,000 mls Lorazepam (Ativan Injection) 1 mg IVP EDNOW ONE Stop: 12/05/16 19:40 Last Admin: 12/05/16 20:28 Dose: 1 mg Ondansetron HCl (Zofran) 4 mg IVP EDNOW ONE Stop: 12/05/16 19:37 Last Admin: 12/05/16 20:28 Dose: 4 mg Promethazine HCl (Phenergan) 12.5 mg IVP EDNOW ONE Stop: 12/05/16 22:37 Last Admin: 12/05/16 22:57 Dose: 12.5 mg General Time Seen by Provider: 12/05/16 19:33 Initial Vital Signs: Initial Vital Signs Temperature (C) 37 C 12/05/16 18:20 Heart Rate 116 H 12/05/16 18:20 Respiratory Rate 18 12/05/16 18:20 Blood Pressure 145/101 H 12/05/16 18:20 O2 Sat (%) 97 12/05/16 18:20 O2 Delivery Mode Room Air Allergies/Adverse Reactions: Sulfa (Sulfonamide Antibiotics) Allergy (Mild, Verified 12/05/16 18:19) Rash Home Medications: Medication Instructions Recorded Sertraline HCl [Zoloft 50mg (*)] 75 mg PO DAILY 03/14/16 Diltiazem Xr [Dilacor Xr] 240 mg PO DAILY #30 cap 04/24/16 Aspirin EC [Aspirin EC 81 mg (*)] 81 mg PO DAILY 09/22/16 Herbals/Supplements -Info Only 1 ea PO DAILY 09/22/16 chlordiazePOXIDE [Librium 25 mg 1 - 2 cap PO Q6 PRN #15 cap 11/10/16 (*)] Ondansetron HCl [Zofran] 4 mg PO Q4-6PRN PRN #10 tablet 11/21/16 Departure - Departure Disposition: Home, Routine, Self-Care Clinical Impression: Nausea and vomiting in adult, Alcohol abuse Condition: Good Instructions: Acute Nausea and Vomiting (ED) Additional Instructions: Follow-up with your primary doctor in 1 day if not improved. Return to the Emergency Department for fever, chest pain, shortness of breath, increasing pain or other worsening of condition. Zofran if needed for nausea Referrals: Harriet Nelson MD [Primary Care Provider] - 1 day, if not improved
[2016-12-05] MEDS ORDERED: ONDANSETRON 4 MG/2 ML VIAL ONE (21:50)
[2016-12-05] MEDS ORDERED: PROMETHAZINE HCL 25 MG/ML INJ ONE (22:31)
[2016-12-05] MEDS ORDERED: PROMETHAZINE HCL 25 MG/ML INJ IVP ONE (22:36)
[2016-12-05 23:03] LABS: % IMMATURE GRANULYOCYTES 0.3 % (0.0-1.1); ABSOLUTE IMMATURE GRANULOCYTES 0.02 10^3/uL (0.00-0.10); ADD DIFF? NO; ADD MORPH? NO; ADD SCAN? NO; ATYPICAL LYMPHOCYTE FLAG 0 (0-99); FRAGMENT RBC FLAG 0 (0-99); HEMATOCRIT 39.5 % (38.0-47.0); HEMOGLOBIN 13.9 g/dL (12.6-16.3); LEFT SHIFT FLG 0 (0-99); LIPEMIA HEMOLYSIS FLAG 90 (0-99); MEAN CELL HEMOGLOBIN 35.9 pg (27.9-34.1); MEAN CELL HEMOGLOBIN CONCENTR. 35.2 g/dL (32.4-36.7); MEAN CELL VOLUME 102.1 fL (81.5-99.8); MEAN PLATELET VOLUME 10.1 fL (8.7-11.7); PLATELET CLUMPS FLAG 0 (0-99); PLATELET COUNT 125 10^3/uL (150-400); RED BLOOD CELL COUNT 3.87 10^6/uL (4.18-5.33); RED CELL DISTRIBUTION WIDTH 15.4 % (11.5-15.2)
[2016-12-05 23:12] LABS: ANION GAP 12 mEq/L (8-16); CALCIUM 8.3 mg/dL (8.5-10.4); CARBON DIOXIDE 19 mEq/l (22-31); CHLORIDE 103 mEq/L (97-110); CREATININE 0.6 mg/dL (0.6-1.0); GLOMERULAR FILTRATION RATE > 60; GLUCOSE 87 mg/dL (70-100); POTASSIUM 5.7 mEq/L (3.5-5.2); SODIUM 134 mEq/L (134-144); SPECIMEN HEMOLYSIS 175
[2016-12-05] MEDS ORDERED: ONDANSETRON 4MG PREPACK#2 BTL TAKEHOME ONE (23:32)
[2016-12-05 23:51] VITALS: BP 110/74; PULSE 81; RESP 16; TEMP 97.9; O2SAT 96
== END 2016-12-05 23:52 | disposition home or self-care (01) ==
DX: R11.2 Nausea with vomiting, unspecified (principal); F10.10 Alcohol abuse, uncomplicated; E86.9 Volume depletion, unspecified; Z79.82 Long term (current) use of aspirin
CPT/HCPCS: 96374; J2060; J2405; J2550

== ENCOUNTER 2016-12-13 12:34 | Emergency (ER) | payer MEDICAID ==
[2016-12-13] MEDS ORDERED: ONDANSETRON 4 MG/2 ML VIAL ONE (13:53)
[2016-12-13] MEDS ORDERED: ONDANSETRON 4 MG/2 ML VIAL IVP ONE (13:57)
[2016-12-13] MEDS ORDERED: PROMETHAZINE HCL 25 MG/ML INJ ONE (14:16)
[2016-12-13] MEDS ORDERED: PROMETHAZINE HCL 25 MG/ML INJ IVP ONE (14:17)
[2016-12-13 14:21] VITALS: RESP 16
[2016-12-13] MEDS ORDERED: LORazepam 2 MG/ML INJ IVP ONE (14:28)
--- NOTE | 2016-12-13 14:32 | EDPHY ---
H & P Stated Complaint: Vom & shakey;last ETOH yesterday;refuses ARC Source: Patient Exam Limitations: No limitations - Personal History Current Tetanus Diphtheria and Acellular Pertussis (TDAP): Yes Tetanus Vaccine Date: 2014 - Medical/Surgical History Hx Asthma: No Hx Chronic Respiratory Disease: No Hx Diabetes: No Hx Cardiac Disease: Yes Hx Renal Disease: No Hx Cirrhosis: No Hx Alcoholism: Yes Hx HIV/AIDS: No Hx Splenectomy or Spleen Trauma: No Other PMH: PMHx: Alcoholism, degenerative disc disease, osteoarthritis, scoliosis, heart murmur, a-fib, C difficile-Dec 2015, hx withdrawal, pancreatitis. PSHx: tonsillectomy - Social History Smoking Status: Never smoked HPI/ROS: CHIEF COMPLAINT: Nausea vomiting, alcohol abuse HISTORY OF PRESENT ILLNESS: Patient reports to heavy ingestion of alcohol last night. She she drank at least a pint of liquor, possibly more. She does not recall. She was very intoxicated. She woke this morning very nauseated and began vomiting. She has multiple bouts of vomiting. No abdominal pain. No bloody emesis. No constipation diarrhea. No fever chills. No urinary complaints. She is requesting nausea medicine IV fluid. She is requesting that we not perform any labs or test. She is simply here for relief of her nausea vomiting. Admits to abuse of alcohol with a pattern of heavy drinking for 1-2 days, no drinking for 2-3 days. This is consistent with her pattern. No other associated complaints or modifying factors. REVIEW OF SYSTEMS: Ten systems reviewed and are negative unless otherwise noted in the HPI PAST MEDICAL HISTORY: Reviewed. Alcohol abuse SOCIAL HISTORY: Nonsmoker. Admits to alcohol abuse of liquor FAMILY HISTORY: Noncontributory EXAMINATION General Appearance: Alert, no distress. Normal conversation without slurred speech Head: normocephalic, atraumatic Eyes: Pupils equal and round, no conjunctival pallor or injection ENT, Mouth: Mucous membranes moist. Uvula midline. Airway widely patent Neck: Normal inspection, supple, non-tender Respiratory: Lungs are clear to auscultation. No wheezing, rhonchi or crackles Cardiovascular: Regular rate and rhythm number Gastrointestinal: Abdomen is soft and nontender. No tenderness. No rigidity. No guarding. No distention. Nonacute abdomen. Back: non-tender, no bony abnormalities Neurological: GCS 15 cranial nerves 2-12 grossly intact. A&O, nonfocal, normal gait. No pronator drift. No dysmetria. Normal mental status Skin: Warm and dry, no rash Extremities: Nontender, no pedal edema Psychiatric: Mood and affect normal DIFFERENTIAL DIAGNOSES: Including but not limited to alcohol withdrawal, nausea vomiting, acute alcohol intoxication, dehydration MDM: 2:30 p.m. Nausea and vomiting in a patient who abuses alcohol. She endorses that the symptoms are completely related to her drinking the night before. This is consistent with her previous, frequent episodes. She has no abdominal pain. She feels this is directly related to the drinking. She does not want any laboratory tests or imaging. She simply is requesting nausea medicine and IV fluid. She is starting to feel better after the Zofran and Phenergan but still feels mildly shaky. While she does not exhibit any evidence of delirium tremens or acute alcohol withdrawal, I have ordered IV Ativan. 3:15 p.m. I have re-evaluated the patient. She is feeling better. No vomiting. Nausea improved. No evidence of delirium tremens or acute alcohol withdrawal sequela. Discharged home with antiemetics. Follow up with primary care physician for further care. ED precautions discussed. SUPERVISION: This patient was independently evaluated without direct examination by the attending physician. Case was discussed with attending physician. (Thaddeus Caballero) Constitutional: Initial Vital Signs Temperature (C) 37 C 12/13/16 12:36 Heart Rate 96 12/13/16 12:36 Respiratory Rate 18 12/13/16 12:36 Blood Pressure 137/89 H 12/13/16 12:36 O2 Sat (%) 98 12/13/16 12:36 O2 Delivery Mode Room Air Allergies/Adverse Reactions: Sulfa (Sulfonamide Antibiotics) Allergy (Mild, Verified 12/13/16 12:36) Rash Home Medications: Medication Instructions Recorded Sertraline HCl [Zoloft 50mg (*)] 75 mg PO DAILY 03/14/16 Diltiazem Xr [Dilacor Xr] 240 mg PO DAILY #30 cap 04/24/16 Aspirin EC [Aspirin EC 81 mg (*)] 81 mg PO DAILY 09/22/16 Herbals/Supplements -Info Only 1 ea PO DAILY 09/22/16 chlordiazePOXIDE [Librium 25 mg 1 - 2 cap PO Q6 PRN #15 cap 11/10/16 (*)] Ondansetron HCl [Zofran] 4 mg PO Q4-6PRN PRN #10 tablet 11/21/16 Ondansetron Odt [Zofran Odt 4 mg 4 mg PO Q6 PRN #12 tab 12/13/16 (*)] Promethazine HCl [Phenergan 25mg 25 mg PO Q8 PRN #11 tab 12/13/16 (*)] Medical Decision Making ED Course/Re-evaluation: I did not see this patient while she was in the emergency department. However her care was discussed with the PA while the patient was in the department. I agree with treatment plan and management (Romel Trejo) - Data Points Medications Given: Discontinued Medications Lorazepam (Ativan Injection) 1 mg IVP EDNOW ONE Stop: 12/13/16 14:29 Last Admin: 12/13/16 14:36 Dose: 1 mg Ondansetron HCl (Zofran) 4 mg IVP EDNOW ONE Stop: 12/13/16 13:58 Last Admin: 12/13/16 14:15 Dose: 4 mg Promethazine HCl (Phenergan) 25 mg IVP EDNOW ONE Stop: 12/13/16 14:18 Last Admin: 12/13/16 14:18 Dose: 25 mg Departure - Departure Disposition: Home, Routine, Self-Care Clinical Impression: Nausea & vomiting, Alcohol abuse Condition: Good Instructions: Abuse of Alcohol (ED), Acute Nausea and Vomiting (ED) Additional Instructions: 1. Increase fluid intake 2. Clear liquids, advance diet as tolerated slowly 3. Follow up with primary care physician for further assistance with alcohol cessation 4. Return to ER for any return of vomiting, abdominal pain, fever, tremor Referrals: Harriet Nelson MD [Primary Care Provider] - As per Instructions Stand Alone Forms: [facility] Prescriptions: Ondansetron Odt [Zofran Odt 4 mg (*)] 4 mg PO Q6 PRN #12 tab PRN Reason: Nausea/Vomiting, Use 1st Promethazine HCl [Phenergan 25mg (*)] 25 mg PO Q8 PRN #11 tab PRN Reason: Nausea/Vomiting, Use 1st
[2016-12-13 15:25] VITALS: BP 113/61; PULSE 69; TEMP 97.3; O2SAT 93
== END 2016-12-13 15:25 | disposition home or self-care (01) ==
DX: R11.2 Nausea with vomiting, unspecified (principal); F10.10 Alcohol abuse, uncomplicated; Z79.82 Long term (current) use of aspirin
CPT/HCPCS: 96374; J2060; J2405; J2550

== ENCOUNTER 2017-01-07 20:07 | Emergency (ER) | payer MEDICAID ==
[2017-01-07 20:19] VITALS: TEMP 98.6
[2017-01-07] MEDS ORDERED: ONDANSETRON 4 MG/2 ML VIAL IVP ONE (20:40)
[2017-01-07] MEDS ORDERED: LORazepam 2 MG/ML INJ IVP ONE (20:40)
[2017-01-07] MEDS ORDERED: PROMETHAZINE HCL 25 MG/ML INJ IVP ONE (20:40)
[2017-01-07] MEDS ORDERED: NS 1,000 ML IV ONE ×2 (20:41)
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
[2017-01-07 21:11] VITALS: O2SAT 100
[2017-01-07 22:05] VITALS: BP 125/101; PULSE 82; RESP 16
[2017-01-07] MEDS ORDERED: chlordiazePOXIDE 25 MG CAP PO ONE (22:25)
[2017-01-07] MEDS ORDERED: ONDANSETRON 4MG PREPACK#2 BTL TAKEHOME ONE (22:29)
== END 2017-01-07 22:43 | disposition home or self-care (01) ==
PROC: 3E0337Z Introduction of Electrolytic and Water Balance Substance into Peripheral Vein, Percutaneous Approach (ICD-10-PCS; principal; 2017-01-07)
DX: F10.230 Alcohol dependence with withdrawal, uncomplicated (principal); E86.9 Volume depletion, unspecified; Z79.82 Long term (current) use of aspirin
CPT/HCPCS: 96374; J2060; J2405; J2550

== ENCOUNTER 2017-01-27 21:20 | Emergency (ER) | payer MEDICAID ==
[2017-01-27] MEDS ORDERED: ONDANSETRON 4 MG/2 ML VIAL IVP ONE (21:42)
[2017-01-27] MEDS ORDERED: NS 1,000 ML IV ONE (21:42)
[2017-01-27] MEDS ORDERED: DILTIAZEM 25 MG/5 ML VIAL IVP ONE (22:04)
[2017-01-27] MEDS ORDERED: LORazepam 2 MG/ML INJ IVP ONE (22:04)
[2017-01-27] MEDS ORDERED: PROMETHAZINE HCL 25 MG/ML INJ IVP ONE (22:04)
--- NOTE | 2017-01-27 22:04 | EDPHY ---
H & P Stated Complaint: etohc w/d Time Seen by Provider: 01/27/17 21:50 HPI/ROS: Chief Complaint: Alcohol withdrawal, nausea, vomiting, diarrhea HPI: 61-year-old woman long standing history of alcohol dependence is presenting complaining of nausea vomiting and diarrhea for the past 14 hours. Patient states her last drink of alcohol was at 8 o'clock this morning. She states he usually drinks a pt of alcohol 3-4 days a week. She also has a history of atrial fibrillation for which she takes Cardizem but was unable to take it this morning. Did state she felt like her heart was irregular this afternoon but feels better now. Patient states she is getting lightheaded with standing. No vomiting blood in or coffee-ground emesis. No dark tarry stools or blood in her stools. No abdominal pain. Symptoms are consistent with her usual alcohol withdrawal. She states that Zofran and Phenergan usually help her feel better. She is not interested in going to the [facility]. ROS: 10 point Review of Systems is negative except as noted in the HPI. PMH: Alcohol dependence, atrial fibrillation, depression Medications: Zoloft and diltiazem 240 mg daily Allergies: Sulfa Social History: No smoking, heavy alcohol, no recreational drug use Family History: non-contributory Physical Exam: Gen: Awake, Alert, No Distress HEENT: Nose: no rhinorrhea Eyes: PERRLA, EOMI Mouth: Dry mucous membranes Neck: Supple, no JVD Chest: nontender, lungs clear to auscultation Heart: Irregularly irregular, tachycardic at 120, no murmur Abd: Soft, non-tender, no guarding Back: no CVA tenderness, no midline tenderness Ext: no edema, non-tender Skin: no rash Neuro: CN II-XII intact, Sensation grossly intact, Strength 5/5 in bilateral upper and lower extremities - Personal History Tetanus Vaccine Date: 2014 - Medical/Surgical History Hx Asthma: No Hx Chronic Respiratory Disease: No Hx Diabetes: No Hx Cardiac Disease: Yes Hx Renal Disease: No Hx Cirrhosis: No Hx Alcoholism: Yes Hx HIV/AIDS: No Hx Splenectomy or Spleen Trauma: No Other PMH: PMHx: Alcoholism, degenerative disc disease, osteoarthritis, scoliosis, heart murmur, a-fib, C difficile-Dec 2015, hx withdrawal, pancreatitis. PSHx: tonsillectomy - Social History Smoking Status: Never smoked Constitutional: Initial Vital Signs Temperature (C) 36.5 C 01/27/17 21:26 Heart Rate 123 H 01/27/17 21:26 Respiratory Rate 20 01/27/17 21:26 Blood Pressure 115/102 H 01/27/17 21:26 O2 Sat (%) 99 01/27/17 21:26 O2 Delivery Mode Room Air Allergies/Adverse Reactions: Sulfa (Sulfonamide Antibiotics) Allergy (Mild, Verified 01/27/17 21:27) Rash Home Medications: Medication Instructions Recorded Sertraline HCl [Zoloft 50mg (*)] 75 mg PO DAILY 03/14/16 Diltiazem Xr [Dilacor Xr] 240 mg PO DAILY #30 cap 04/24/16 Aspirin EC [Aspirin EC 81 mg (*)] 81 mg PO DAILY 09/22/16 Herbals/Supplements -Info Only 1 ea PO DAILY 09/22/16 chlordiazePOXIDE [Librium 25 mg 1 - 2 cap PO Q6 PRN #15 cap 11/10/16 (*)] Ondansetron HCl [Zofran] 4 mg PO Q4-6PRN PRN #10 tablet 11/21/16 Ondansetron Odt [Zofran Odt 4 mg 4 mg PO Q6 PRN #12 tab 12/13/16 (*)] Medical Decision Making ED Course/Re-evaluation: 61-year-old woman well known to this emergency department with a history of chronic alcohol abuse and frequent visitations for alcohol withdrawal. Patient is pleasant. She has a history of atrial fibrillation but was not able to tolerate her usual diltiazem orally today. She is in a at and is tachycardic. She is not anticoagulated. She has a Rusty score of 1 from prior history. Plan will be to hydrate, will give her intravenous diltiazem here, antiemetics and Ativan. 0015 patient states she is feeling significantly improved and is asking to go home. She is still tachycardic but states she this is her baseline. I have given her 240 mg of her oral diltiazem here. Patient is aware that she needs return for any concerns or symptoms. She is awake alert sober and appropriate to make decisions for herself. No criteria to hold her against her will. She is refusing transfer the addiction recovery Center. Will discharge with follow- up with primary care physician. - Data Points Laboratory Results: Laboratory Results 01/27/17 22:55 01/27/17 22:55 01/27/17 01/27/17 22:55 22:55 WBC 4.50 10^3/uL 10^3/uL (3.80-9.50) RBC 3.56 10^6/uL L 10^6/uL (4.18-5.33) Hgb 13.2 g/dL g/dL (12.6-16.3) Hct 37.8 % L % (38.0-47.0) MCV 106.2 fL H fL (81.5-99.8) MCH 37.1 pg H pg (27.9-34.1) MCHC 34.9 g/dL g/dL (32.4-36.7) RDW 12.7 % % (11.5-15.2) Plt Count 116 10^3/uL L 10^3/uL (150-400) MPV 10.7 fL fL (8.7-11.7) Neut % (Auto) 85.0 % H % (39.3-74.2) Lymph % (Auto) 7.1 % L % (15.0-45.0) [place] % (Auto) 7.3 % % (4.5-13.0) Eos % (Auto) 0.0 % L % (0.6-7.6) Baso % (Auto) 0.2 % L % (0.3-1.7) Nucleat RBC Rel Count 0.0 % % (0.0-0.2) Absolute Neuts (auto) 3.82 10^3/uL 10^3/uL (1.70-6.50) Absolute Lymphs (auto) 0.32 10^3/uL L 10^3/uL (1.00-3.00) Absolute Monos (auto) 0.33 10^3/uL 10^3/uL (0.30-0.80) Absolute Eos (auto) 0.00 10^3/uL L 10^3/uL (0.03-0.40) Absolute Basos (auto) 0.01 10^3/uL L 10^3/uL (0.02-0.10) Absolute Nucleated RBC 0.00 10^3/uL 10^3/uL (0-0.01) Immature Gran % 0.4 % % (0.0-1.1) Immature Gran # 0.02 10^3/uL 10^3/uL (0.00-0.10) Sodium 136 mEq/L mEq/L (134-144) Potassium 3.6 mEq/L mEq/L (3.5-5.2) Chloride 104 mEq/L mEq/L (97-110) Carbon Dioxide 18 mEq/l L mEq/l (22-31) Anion Gap 14 mEq/L mEq/L (8-16) BUN 7 mg/dL mg/dL (7-23) Creatinine 0.6 mg/dL mg/dL (0.6-1.0) Estimated GFR > 60 Glucose 103 mg/dL H mg/dL (70-100) Calcium 7.9 mg/dL L mg/dL (8.5-10.4) Medications Given: Discontinued Medications Diltiazem HCl (Cardizem 25 Mg/5 Ml Vial) 10 mg IVP EDNOW ONE Stop: 01/27/17 22:05 Last Admin: 01/27/17 22:36 Dose: 10 mg Diltiazem HCl (Dilacor Xr) 240 mg PO EDNOW ONE Stop: 01/28/17 00:16 Last Admin: 01/28/17 00:11 Dose: 240 mg Sodium Chloride (Ns) 1,000 mls @ 0 mls/hr IV ONCE ONE PRN Reason: Wide Open Stop: 01/27/17 21:43 Last Admin: 01/27/17 21:52 Dose: 1,000 mls Lorazepam (Ativan Injection) 1 mg IVP EDNOW ONE Stop: 01/27/17 22:05 Last Admin: 01/27/17 22:35 Dose: 1 mg Ondansetron HCl (Zofran) 4 mg IVP EDNOW ONE Stop: 01/27/17 21:43 Last Admin: 01/27/17 21:52 Dose: 4 mg Promethazine HCl (Phenergan) 12.5 mg IVP ONCE ONE Stop: 01/27/17 22:05 Last Admin: 01/27/17 22:36 Dose: 12.5 mg Departure - Departure Disposition: Home, Routine, Self-Care Clinical Impression: Alcohol withdrawal, Atrial fibrillation with RVR Condition: Good Instructions: Chlordiazepoxide (By mouth), Alcohol Withdrawal (ED), A-fib ( Atrial Fibrillation) (ED) Additional Instructions: Please continue to take your medications for atrial fibrillation as prescribed. You may take Librium as needed for alcohol withdrawal symptoms. Please seek medical help and discussed with your primary care physician about treatment options for your alcohol use. Return to the emergency department for chest pain, shortness of breath, palpitations, lightheadedness, fainting, or any other concerns. Referrals: Harriet Nelson MD [Primary Care Provider] - As per Instructions
[2017-01-27 23:03] LABS: % IMMATURE GRANULYOCYTES 0.4 % (0.0-1.1); ABSOLUTE IMMATURE GRANULOCYTES 0.02 10^3/uL (0.00-0.10); ADD DIFF? NO; ADD MORPH? NO; ADD SCAN? NO; ATYPICAL LYMPHOCYTE FLAG 0 (0-99); FRAGMENT RBC FLAG 0 (0-99); HEMATOCRIT 37.8 % (38.0-47.0); HEMOGLOBIN 13.2 g/dL (12.6-16.3); LEFT SHIFT FLG 0 (0-99); LIPEMIA HEMOLYSIS FLAG 90 (0-99); MEAN CELL HEMOGLOBIN 37.1 pg (27.9-34.1); MEAN CELL HEMOGLOBIN CONCENTR. 34.9 g/dL (32.4-36.7); MEAN CELL VOLUME 106.2 fL (81.5-99.8); MEAN PLATELET VOLUME 10.7 fL (8.7-11.7); PLATELET CLUMPS FLAG 20 (0-99); PLATELET COUNT 116 10^3/uL (150-400); RED BLOOD CELL COUNT 3.56 10^6/uL (4.18-5.33); RED CELL DISTRIBUTION WIDTH 12.7 % (11.5-15.2)
[2017-01-27 23:13] LABS: ANION GAP 14 mEq/L (8-16); CALCIUM 7.9 mg/dL (8.5-10.4); CARBON DIOXIDE 18 mEq/l (22-31); CHLORIDE 104 mEq/L (97-110); CREATININE 0.6 mg/dL (0.6-1.0); GLOMERULAR FILTRATION RATE > 60; GLUCOSE 103 mg/dL (70-100); POTASSIUM 3.6 mEq/L (3.5-5.2); SODIUM 136 mEq/L (134-144)
[2017-01-27 23:55] VITALS: O2SAT 96
[2017-01-28] MEDS ORDERED: DILTIAZEM XR 240 MG CAP PO SCH
[2017-01-28] MEDS ORDERED: DILTIAZEM XR 240 MG CAP PO ONE (00:15)
[2017-01-28] MEDS ORDERED: CHLORDIAZEPOXIDE 25MG PREPK#6 BTL TAKEHOME ONE (00:25)
[2017-01-28 00:46] VITALS: BP 123/81; PULSE 124; RESP 18; TEMP 99.1
== END 2017-01-28 01:02 | disposition home or self-care (01) ==
DX: I48.91 Unspecified atrial fibrillation (principal); F10.239 Alcohol dependence with withdrawal, unspecified; Z79.82 Long term (current) use of aspirin
CPT/HCPCS: 96374; J2060; J2405; J2550

== ENCOUNTER 2017-02-01 22:55 | Emergency (ER) | payer MEDICAID ==
[2017-02-01 23:08] VITALS: RESP 16
[2017-02-01] MEDS ORDERED: ONDANSETRON 4 MG/2 ML VIAL IVP ONE (23:10)
[2017-02-01] MEDS ORDERED: NS 1,000 ML IV ONE (23:10)
--- NOTE | 2017-02-01 23:11 | EDPHY ---
H & P Stated Complaint: EMESIS WITH BLACK SPECKS, AND ETOH WITHDRAWAL. HPI/ROS: HPI CHIEF COMPLAINT: Alcohol withdraw, nausea vomiting HISTORY OF PRESENT ILLNESS: This patient is a 61-year-old female well known to myself in the emergency room she has a history of alcoholism and drinks alcohol daily. She drinks vodka. Binge drinks. Her last drink was last night at some point. She cannot remember. She states she has been vomiting all day going to alcohol draw. She feels anxious and shaky. She is requesting IV Phenergan IV Ativan. She denies any pain anywhere specifically denies chest pain shortness of breath or abdominal pain. Past Medical History: Alcoholism, daily alcohol use, history of alcohol draw, history of alcohol draw nausea vomiting AFib Past Surgical History: No recent surgery Social History: Daily alcohol use, lives locally. Denies illicit drugs. Family History: Noncontributory ROS REVIEW OF SYSTEMS: A comprehensive 10 point review of systems is otherwise negative aside from elements mentioned in the history of present illness. Exam Constitutional appears nontoxic triage nursing summary reviewed, vital signs reviewed, awake/alert. Eyes normal conjunctivae and sclera, EOMI, PERRLA. HENT normal inspection, atraumatic, moist mucus membranes, no epistaxis, neck supple/ no meningismus, no raccoon eyes. Respiratory clear to auscultation bilaterally, normal breath sounds, no respiratory distress, no wheezing. Cardiovascular rate normal, regular rhythm, no murmur, no edema, distal pulses normal. Gastrointestinal soft, non-tender, no rebound, no guarding, normal bowel sounds, no distension, no pulsatile mass. Genitourinary no CVA tenderness. Musculoskeletal no midline vertebral tenderness, full range of motion, no calf swelling, no tenderness of extremities, no meningismus, good pulses, neurovascularly intact. Skin pink, warm, & dry, no rash, skin atraumatic. Neurologic slightly tremulous, with arm extension, awake, alert and oriented x 3, AAOx3, moves all 4 extremities equally, motor intact, sensory intact, CN II- XII intact, normal cerebellar, normal vision, normal speech. Psychiatric normal mood/affect. Heme/Lymph/Immune no lymphadenopathy. Differential Diagnosis: Includes but is not limited to in a particular order acute alcohol withdrawal, electrolyte disturbance, dehydration, alcohol-induced gastritis, pancreatitis Medical Decision Making: Plan for this patient IV establishment with IV fluid bolus 1 L normal saline, 1 mg IV Ativan for anxiety, 6.25 mg IV Phenergan for nausea, check basic blood work and electrolytes and re-evaluate. Re-evaluation: 0117AM: This patient has had IV Phenergan, IV Ativan, IV fluids and is feeling much improved. Blood work has been reviewed chronically thrombocytopenic. Not anemic. She has not had any vomiting here. On re-examination abdomen is soft nontender she has no guarding or peritoneal signs she is resting comfortably. She is agreeable and discharged home. We highly recommend she refrain from drinking alcohol. Return precautions given. Source: Patient - Personal History Current Tetanus Diphtheria and Acellular Pertussis (TDAP): Yes Tetanus Vaccine Date: 2014 - Medical/Surgical History Hx Asthma: No Hx Chronic Respiratory Disease: No Hx Diabetes: No Hx Cardiac Disease: Yes Hx Renal Disease: No Hx Cirrhosis: No Hx Alcoholism: Yes Hx HIV/AIDS: No Hx Splenectomy or Spleen Trauma: No Other PMH: PMHx: Alcoholism, degenerative disc disease, osteoarthritis, scoliosis, heart murmur, a-fib, C difficile-Dec 2015, hx withdrawal, pancreatitis. PSHx: tonsillectomy - Social History Smoking Status: Never smoked Constitutional: Initial Vital Signs Temperature (C) 36.6 C 02/01/17 23:05 Heart Rate 111 H 02/01/17 23:05 Respiratory Rate 16 02/01/17 23:05 Blood Pressure 140/80 H 02/01/17 23:05 O2 Sat (%) 98 02/01/17 23:05 O2 Delivery Mode Room Air Allergies/Adverse Reactions: Sulfa (Sulfonamide Antibiotics) Allergy (Mild, Verified 02/01/17 23:04) Rash Home Medications: Medication Instructions Recorded Sertraline HCl [Zoloft 50mg (*)] 75 mg PO DAILY 03/14/16 Diltiazem Xr [Dilacor Xr] 240 mg PO DAILY #30 cap 04/24/16 Aspirin EC [Aspirin EC 81 mg (*)] 81 mg PO DAILY 09/22/16 Herbals/Supplements -Info Only 1 ea PO DAILY 09/22/16 chlordiazePOXIDE [Librium 25 mg 1 - 2 cap PO Q6 PRN #15 cap 11/10/16 (*)] Ondansetron HCl [Zofran] 4 mg PO Q4-6PRN PRN #10 tablet 11/21/16 Ondansetron Odt [Zofran Odt 4 mg 4 mg PO Q6 PRN #12 tab 12/13/16 (*)] Medical Decision Making - Data Points Laboratory Results: Laboratory Results 02/01/17 23:40 02/01/17 23:40 Medications Given: Discontinued Medications Sodium Chloride (Ns) 1,000 mls @ 0 mls/hr IV EDNOW ONE; Wide Open PRN Reason: Protocol Stop: 02/01/17 23:11 Last Admin: 02/01/17 23:24 Dose: 1,000 mls Lorazepam (Ativan Injection) 1 mg IVP EDNOW ONE Stop: 02/01/17 23:22 Last Admin: 02/01/17 23:33 Dose: 1 mg Ondansetron HCl (Zofran) 4 mg IVP EDNOW ONE Stop: 02/01/17 23:11 Last Admin: 02/01/17 23:24 Dose: 4 mg Promethazine HCl (Phenergan) 6.25 mg IVP ONCE ONE Stop: 02/01/17 23:23 Last Admin: 02/01/17 23:32 Dose: 6.25 mg Departure - Departure Disposition: Home, Routine, Self-Care Clinical Impression: Alcohol withdrawal Qualifiers: Complication of substance-induced condition: uncomplicated Qualified Code(s): F10.230 - Alcohol dependence with withdrawal, uncomplicated Nausea and vomiting Qualifiers: Vomiting type: unspecified Vomiting Intractability: intractable Qualified Code( s): R11.2 - Nausea with vomiting, unspecified Condition: Good Instructions: Acute Nausea and Vomiting (ED), Alcohol Withdrawal (ED) Referrals: Harriet Nelson MD [Primary Care Provider] - As per Instructions
[2017-02-01] MEDS ORDERED: LORazepam 2 MG/ML INJ IVP ONE (23:21)
[2017-02-01] MEDS ORDERED: PROMETHAZINE HCL 25 MG/ML INJ IVP ONE (23:22)
[2017-02-01 23:44] LABS: % IMMATURE GRANULYOCYTES 0.3 % (0.0-1.1); ABSOLUTE IMMATURE GRANULOCYTES 0.01 10^3/uL (0.00-0.10); ADD DIFF? NO; ADD MORPH? NO; ADD SCAN? NO; ATYPICAL LYMPHOCYTE FLAG 10 (0-99); FRAGMENT RBC FLAG 0 (0-99); HEMOGLOBIN 13.8 g/dL (12.6-16.3); LEFT SHIFT FLG 0 (0-99); LIPEMIA HEMOLYSIS FLAG 90 (0-99); MEAN CELL HEMOGLOBIN CONCENTR. 35.4 g/dL (32.4-36.7); MEAN CELL VOLUME 104.6 fL (81.5-99.8); MEAN PLATELET VOLUME 10.5 fL (8.7-11.7); PLATELET CLUMPS FLAG 30 (0-99); PLATELET COUNT 85 10^3/uL (150-400); RED BLOOD CELL COUNT 3.73 10^6/uL (4.18-5.33); RED CELL DISTRIBUTION WIDTH 12.8 % (11.5-15.2)
[2017-02-02 00:26] LABS: ALBUMIN 3.5 g/dL (3.5-5.0); ALKALINE PHOSPHATASE 261 IU/L (38-126); ANION GAP 15 mEq/L (8-16); ASPARTATE AMINOTRANSFERASE 229 IU/L (14-46); BILIRUBIN,TOTAL 3.1 mg/dL (0.1-1.4); CALCIUM 8.8 mg/dL (8.5-10.4); CARBON DIOXIDE 21 mEq/l (22-31); CHLORIDE 97 mEq/L (97-110); CREATININE 0.7 mg/dL (0.6-1.0); GLOMERULAR FILTRATION RATE > 60; GLUCOSE 111 mg/dL (70-100); POTASSIUM 4.3 mEq/L (3.5-5.2); SODIUM 133 mEq/L (134-144); TOTAL PROTEIN 5.9 g/dL (6.3-8.2)
[2017-02-02 00:27] LABS: ALANINE AMINOTRANSFERASE 95 IU/L (9-52); BILIRUBIN-CONJUGATED 1.7 mg/dL (0.0-0.5); BILIRUBIN-UNCONJUGATED 1.4 mg/dL (0.0-1.1); ETHANOL SERUM < 10 mg/dL (0-10)
[2017-02-02 02:10] VITALS: BP 141/70; PULSE 77; TEMP 98.1; O2SAT 94
== END 2017-02-02 02:10 | disposition home or self-care (01) ==
PROC: 3E0337Z Introduction of Electrolytic and Water Balance Substance into Peripheral Vein, Percutaneous Approach (ICD-10-PCS; principal; 2017-02-01)
DX: R11.2 Nausea with vomiting, unspecified (principal); F10.230 Alcohol dependence with withdrawal, uncomplicated; E86.9 Volume depletion, unspecified; Z79.82 Long term (current) use of aspirin
CPT/HCPCS: 96374; G0480; J2060; J2405; J2550

== ENCOUNTER 2017-02-08 03:17 | Emergency (ER) | payer MEDICAID ==
[2017-02-08] MEDS ORDERED: NS 1,000 ML IV ONE (03:33)
[2017-02-08] MEDS ORDERED: PROMETHAZINE HCL 25 MG/ML INJ IVP ONE (03:33)
--- NOTE | 2017-02-08 04:00 | EDPHY ---
H & P Stated Complaint: vomiting x 14 hours Time Seen by Provider: 02/08/17 03:30 HPI/ROS: HPI The patient presents with vomiting which has been present for the last 15 hours after stopping drinking at 10:00 a.m. yesterday. She says she stopped drinking because she began to get sick. She has had multiple episodes of nonbloody nonbilious emesis. She took 1 Zofran at home, however this did not help her symptoms. She denies any abdominal pain. She denies any diarrhea or constipation. Four days ago she had a fall in which she hit her left head, she denies any headache, confusion, vision changes, weakness of her arms or legs. Of note, the patient has multiple similar ER visits related to her alcohol use, last was about 1 week ago.. REVIEW OF SYSTEMS Constitutional: No fever, no chills. Eyes: No discharge. ENT: No sore throat. Cardiovascular: No chest pain, no palpitations. Respiratory: No cough, no shortness of breath. Gastrointestinal: See HPI Genitourinary: No hematuria. Musculoskeletal: No back pain. Skin: No rashes. Neurological: No headache. PMHx: Alcohol abuse, alcoholic pancreatitis, alcoholic hepatitis, history of alcohol withdrawal Soc Hx: Lives by herself, heavy EtOH use PHYSICAL General Appearance: Alert, somewhat anxious appearing Eyes: Pupils equal and round no pallor or injection ENT, Mouth: Mucous membranes dry Respiratory: There are no retractions, lungs are clear to auscultation Cardiovascular: Regular rate and rhythm Gastrointestinal: Abdomen is soft and non-tender, no masses, bowel sounds normal Neurological: A&O, moves all extremities Skin: Warm and dry, ecchymoses to left forehead Musculoskeletal: Neck is supple non tender Extremities: symmetrical, full range of motion Psychiatric: Patient is oriented X 3, there is no agitation Source: Patient Exam Limitations: No limitations - Personal History Current Tetanus/Diphtheria Vaccine: Yes Tetanus Vaccine Date: 2014 - Medical/Surgical History Hx Asthma: No Hx Chronic Respiratory Disease: No Hx Diabetes: No Hx Cardiac Disease: Yes Hx Renal Disease: No Hx Cirrhosis: No Hx Alcoholism: Yes Hx HIV/AIDS: No Hx Splenectomy or Spleen Trauma: No Other PMH: PMHx: Alcoholism, degenerative disc disease, osteoarthritis, scoliosis, heart murmur, a-fib, C difficile-Sept 2016, hx withdrawal, pancreatitis. PSHx: tonsillectomy - Social History Smoking Status: Never smoked Constitutional: Initial Vital Signs Heart Rate 95 02/08/17 03:20 Respiratory Rate 16 02/08/17 03:20 Blood Pressure 136/93 H 02/08/17 03:20 O2 Sat (%) 97 02/08/17 03:20 O2 Delivery Mode Room Air O2 (L/minute) 1 Allergies/Adverse Reactions: Sulfa (Sulfonamide Antibiotics) Allergy (Mild, Verified 02/01/17 23:04) Rash Home Medications: Medication Instructions Recorded Diltiazem Xr [Dilacor Xr] 240 mg PO DAILY #30 cap 04/24/16 Aspirin EC [Aspirin EC 81 mg (*)] 81 mg PO DAILY 09/22/16 Herbals/Supplements -Info Only 1 ea PO DAILY 09/22/16 Ondansetron HCl [Zofran] 4 mg PO Q4-6PRN PRN #10 tablet 11/21/16 Medical Decision Making Differential Diagnosis: This is a 61-year-old female, well known to this emergency department, who presents with 15 hours of nausea and vomiting, not improved with Zofran at home , this is in the setting of not drinking alcohol for the last several hours. On exam, she has ecchymoses on her left forehead from her fall 4 days ago. She appears somewhat tremulous and is likely in mild alcohol withdrawal. Her abdominal exam is benign. Differential diagnosis includes pancreatitis, alcoholic gastritis, electrolyte disturbance, renal failure. In the emergency department, the patient was given IV fluids, Phenergan and Ativan per her request. His labs were checked and did reveal transaminitis, though on par with prior labs. Lipase was also elevated which could be related to vomiting or alcoholic pancreatitis. Given that her abdominal exam is benign , I do not feel abdominal in imaging is necessary. She does have evidence of trauma to the head sustained 4 days ago, however has a normal neurologic evaluation, no headache and no vision changes. I doubt she has any serious intracranial injury. She felt better after receiving the above medications and was discharged home. We counseled her on stopping drinking. - Data Points Laboratory Results: Laboratory Results 02/08/17 04:23 02/08/17 04:23 02/08/17 02/08/17 04:23 04:23 WBC 4.53 10^3/uL 10^3/uL (3.80-9.50) RBC 3.85 10^6/uL L 10^6/uL (4.18-5.33) Hgb 14.0 g/dL g/dL (12.6-16.3) Hct 40.8 % % (38.0-47.0) MCV 106.0 fL H fL (81.5-99.8) MCH 36.4 pg H pg (27.9-34.1) MCHC 34.3 g/dL g/dL (32.4-36.7) RDW 13.2 % % (11.5-15.2) Plt Count 129 10^3/uL L 10^3/uL (150-400) MPV 9.8 fL fL (8.7-11.7) Neut % (Auto) 86.4 % H % (39.3-74.2) Lymph % (Auto) 8.4 % L % (15.0-45.0) [place] % (Auto) 4.6 % % (4.5-13.0) Eos % (Auto) 0.0 % L % (0.6-7.6) Baso % (Auto) 0.2 % L % (0.3-1.7) Nucleat RBC Rel Count 0.0 % % (0.0-0.2) Absolute Neuts (auto) 3.91 10^3/uL 10^3/uL (1.70-6.50) Absolute Lymphs (auto) 0.38 10^3/uL L 10^3/uL (1.00-3.00) Absolute Monos (auto) 0.21 10^3/uL L 10^3/uL (0.30-0.80) Absolute Eos (auto) 0.00 10^3/uL L 10^3/uL (0.03-0.40) Absolute Basos (auto) 0.01 10^3/uL L 10^3/uL (0.02-0.10) Absolute Nucleated RBC 0.00 10^3/uL 10^3/uL (0-0.01) Immature Gran % 0.4 % % (0.0-1.1) Immature Gran # 0.02 10^3/uL 10^3/uL (0.00-0.10) Sodium 137 mEq/L mEq/L (134-144) Potassium 3.9 mEq/L mEq/L (3.5-5.2) Chloride 102 mEq/L mEq/L (97-110) Carbon Dioxide 18 mEq/l L mEq/l (22-31) Anion Gap 17 mEq/L H mEq/L (8-16) BUN 5 mg/dL L mg/dL (7-23) Creatinine 0.7 mg/dL mg/dL (0.6-1.0) Estimated GFR > 60 Glucose 91 mg/dL mg/dL (70-100) Calcium 9.2 mg/dL mg/dL (8.5-10.4) Total Bilirubin 2.8 mg/dL H mg/dL (0.1-1.4) Conjugated Bilirubin 1.4 mg/dL H mg/dL (0.0-0.5) Unconjugated Bilirubin 1.4 mg/dL H mg/dL (0.0-1.1) AST 314 IU/L H IU/L (14-46) ALT 114 IU/L H IU/L (9-52) Alkaline Phosphatase 287 IU/L H IU/L (38-126) Total Protein 6.3 g/dL g/dL (6.3-8.2) Albumin 3.7 g/dL g/dL (3.5-5.0) Lipase 398 IU/L H IU/L (23-300) Medications Given: Discontinued Medications Sodium Chloride (Ns) 1,000 mls @ 0 mls/hr IV EDNOW ONE; Wide Open PRN Reason: Protocol Stop: 02/08/17 03:34 Last Admin: 02/08/17 04:20 Dose: 1,000 mls Lorazepam (Ativan Injection) 1 mg IVP EDNOW ONE Stop: 02/08/17 04:28 Last Admin: 02/08/17 04:30 Dose: 1 mg Promethazine HCl (Phenergan) 12.5 mg IVP EDNOW ONE Stop: 02/08/17 03:34 Last Admin: 02/08/17 04:20 Dose: 12.5 mg Departure - Departure Disposition: Home, Routine, Self-Care Clinical Impression: Nausea and vomiting in adult, Alcohol abuse, Transaminitis Pancreatitis Qualifiers: Chronicity: acute Pancreatitis type: alcohol induced Acute pancreatitis complication: unspecified Qualified Code(s): K85.20 - Alcohol induced acute pancreatitis without necrosis or infection Condition: Good Instructions: Abuse of Alcohol (ED) Additional Instructions: We are concerned about your alcohol use as it is responsible for all of your symptoms and ER visits. You need to abstain from alcohol if you want to get healthy. Please follow-up with your regular doctor in the next few days. Referrals: Harriet Nelson MD [Primary Care Provider] - As per Instructions
[2017-02-08] MEDS ORDERED: LORazepam 2 MG/ML INJ IVP ONE (04:27)
[2017-02-08 04:32] LABS: % IMMATURE GRANULYOCYTES 0.4 % (0.0-1.1); ABSOLUTE IMMATURE GRANULOCYTES 0.02 10^3/uL (0.00-0.10); ADD DIFF? NO; ADD MORPH? NO; ADD SCAN? NO; ATYPICAL LYMPHOCYTE FLAG 0 (0-99); FRAGMENT RBC FLAG 0 (0-99); HEMATOCRIT 40.8 % (38.0-47.0); LEFT SHIFT FLG 0 (0-99); LIPEMIA HEMOLYSIS FLAG 90 (0-99); MEAN CELL HEMOGLOBIN 36.4 pg (27.9-34.1); MEAN CELL HEMOGLOBIN CONCENTR. 34.3 g/dL (32.4-36.7); MEAN PLATELET VOLUME 9.8 fL (8.7-11.7); PLATELET CLUMPS FLAG 0 (0-99); PLATELET COUNT 129 10^3/uL (150-400); RED BLOOD CELL COUNT 3.85 10^6/uL (4.18-5.33); RED CELL DISTRIBUTION WIDTH 13.2 % (11.5-15.2)
[2017-02-08 04:49] LABS: ALANINE AMINOTRANSFERASE 114 IU/L (9-52); ALBUMIN 3.7 g/dL (3.5-5.0); ALKALINE PHOSPHATASE 287 IU/L (38-126); ANION GAP 17 mEq/L (8-16); ASPARTATE AMINOTRANSFERASE 314 IU/L (14-46); BILIRUBIN,TOTAL 2.8 mg/dL (0.1-1.4); BILIRUBIN-CONJUGATED 1.4 mg/dL (0.0-0.5); BILIRUBIN-UNCONJUGATED 1.4 mg/dL (0.0-1.1); CALCIUM 9.2 mg/dL (8.5-10.4); CARBON DIOXIDE 18 mEq/l (22-31); CHLORIDE 102 mEq/L (97-110); CREATININE 0.7 mg/dL (0.6-1.0); GLOMERULAR FILTRATION RATE > 60; GLUCOSE 91 mg/dL (70-100); POTASSIUM 3.9 mEq/L (3.5-5.2); SODIUM 137 mEq/L (134-144); TOTAL PROTEIN 6.3 g/dL (6.3-8.2)
[2017-02-08 06:04] VITALS: BP 145/94; PULSE 96; RESP 18; TEMP 99.5; O2SAT 100
== END 2017-02-08 06:03 | disposition home or self-care (01) ==
DX: K85.20 Alcohol induced acute pancreatitis without necrosis or infection (principal); R74.0 Nonspecific elevation of levels of transaminase and lactic acid dehydrogenase [LDH]; F10.10 Alcohol abuse, uncomplicated; E86.9 Volume depletion, unspecified
CPT/HCPCS: 96374; J2060; J2550

== ENCOUNTER 2017-02-22 22:39 | Emergency (ER) | payer MEDICAID ==
[2017-02-22] MEDS ORDERED: ONDANSETRON 4 MG/2 ML VIAL IVP ONE (22:53)
[2017-02-22] MEDS ORDERED: NS 1,000 ML IV ONE (22:53)
[2017-02-22] MEDS ORDERED: LORazepam 2 MG/ML INJ IVP ONE (22:53)
[2017-02-22 23:23] LABS: % IMMATURE GRANULYOCYTES 0.5 % (0.0-1.1); ABSOLUTE IMMATURE GRANULOCYTES 0.03 10^3/uL (0.00-0.10); ADD DIFF? NO; ADD MORPH? NO; ADD SCAN? NO; ATYPICAL LYMPHOCYTE FLAG 10 (0-99); FRAGMENT RBC FLAG 0 (0-99); HEMATOCRIT 40.9 % (38.0-47.0); HEMOGLOBIN 14.5 g/dL (12.6-16.3); LEFT SHIFT FLG 0 (0-99); LIPEMIA HEMOLYSIS FLAG 90 (0-99); MEAN CELL HEMOGLOBIN 37.9 pg (27.9-34.1); MEAN CELL HEMOGLOBIN CONCENTR. 35.5 g/dL (32.4-36.7); MEAN CELL VOLUME 106.8 fL (81.5-99.8); MEAN PLATELET VOLUME 9.8 fL (8.7-11.7); PLATELET CLUMPS FLAG 10 (0-99); PLATELET COUNT 152 10^3/uL (150-400); RED BLOOD CELL COUNT 3.83 10^6/uL (4.18-5.33); RED CELL DISTRIBUTION WIDTH 13.2 % (11.5-15.2)
[2017-02-22 23:34] LABS: ANION GAP 20 mEq/L (8-16); CARBON DIOXIDE 17 mEq/l (22-31); CHLORIDE 98 mEq/L (97-110); CREATININE 0.8 mg/dL (0.6-1.0); GLOMERULAR FILTRATION RATE > 60; GLUCOSE 134 mg/dL (70-100); POTASSIUM 3.7 mEq/L (3.5-5.2); SODIUM 135 mEq/L (134-144)
--- NOTE | 2017-02-22 23:36 | EDPHY ---
H & P Stated Complaint: N/V/D x14 hours -ETOH withdrawal Time Seen by Provider: 02/22/17 23:29 HPI/ROS: Chief Complaint: Nausea, vomiting, diarrhea, alcohol withdrawal HPI: 61-year-old woman well known to this emergency department myself with a longstanding history of alcoholism. Patient frequently gets nausea vomiting when she goes into withdrawal. He she says her last drink was 24 hours ago. He has been having nausea vomiting and diarrhea today. Some mild abdominal pain. No fevers or chills. No blood or coffee-ground emesis. No dark tarry stools or blood in her stool. No fevers or chills. She received medications and fluids here end states that she is feeling better at the time of my evaluation. ROS: 10 point Review of Systems is negative except as noted in the HPI. PMH: Chronic alcoholism Social History: No smoking, heavy daily alcohol, no recreational drug use Family History: non-contributory Physical Exam: Gen: Awake, Alert, No Distress HEENT: Nose: no rhinorrhea Eyes: PERRLA, EOMI Mouth: Moist mucosa Neck: Supple, no JVD Chest: nontender, lungs clear to auscultation Heart: S1, S2 normal, no murmur Abd: Soft, non-tender, no guarding Back: no CVA tenderness, no midline tenderness Ext: no edema, non-tender Skin: no rash Neuro: CN II-XII intact, Sensation grossly intact, Strength 5/5 in bilateral upper and lower extremities - Personal History Current Tetanus/Diphtheria Vaccine: Yes Tetanus Vaccine Date: 2014 - Medical/Surgical History Hx Asthma: No Hx Chronic Respiratory Disease: No Hx Diabetes: No Hx Cardiac Disease: Yes Hx Renal Disease: No Hx Cirrhosis: No Hx Alcoholism: Yes Hx HIV/AIDS: No Hx Splenectomy or Spleen Trauma: No Other PMH: PMHx: Alcoholism, degenerative disc disease, osteoarthritis, scoliosis, heart murmur, a-fib, C difficile-Dec 2015, hx withdrawal, pancreatitis. PSHx: tonsillectomy - Social History Smoking Status: Never smoked Constitutional: Initial Vital Signs Temperature (C) 36.9 C 02/22/17 22:43 Heart Rate 133 H 02/22/17 22:43 Respiratory Rate 20 02/22/17 22:43 Blood Pressure 132/98 H 02/22/17 22:43 O2 Sat (%) 96 02/22/17 22:43 O2 Delivery Mode Nasal Cannula O2 (L/minute) 2 Allergies/Adverse Reactions: Sulfa (Sulfonamide Antibiotics) Allergy (Mild, Verified 02/01/17 23:04) Rash Home Medications: Medication Instructions Recorded Diltiazem Xr [Dilacor Xr] 240 mg PO DAILY #30 cap 04/24/16 Aspirin EC [Aspirin EC 81 mg (*)] 81 mg PO DAILY 09/22/16 Herbals/Supplements -Info Only 1 ea PO DAILY 09/22/16 Ondansetron HCl [Zofran] 4 mg PO Q4-6PRN PRN #10 tablet 11/21/16 Medical Decision Making ED Course/Re-evaluation: 61-year-old woman longstanding history of alcoholism with nausea and vomiting after manifestations of her alcohol withdrawal. She is presenting with similar symptoms tonight. She has a soft benign abdomen. Laboratory evaluations are consistent with a mild alcoholic ketoacidosis. She has been hydrated here. She is feeling significantly better. Repeat examination reveals soft, benign abdomen. She is tolerating p.o. and ambulating unassisted. Will discharge with follow-up as an outpatient. She has been encouraged to go [facility] but she is declining at this time. - Data Points Laboratory Results: Laboratory Results 02/22/17 23:10 02/22/17 23:10 02/22/17 02/22/17 23:10 23:10 WBC 5.80 10^3/uL 10^3/uL (3.80-9.50) RBC 3.83 10^6/uL L 10^6/uL (4.18-5.33) Hgb 14.5 g/dL g/dL (12.6-16.3) Hct 40.9 % % (38.0-47.0) MCV 106.8 fL H fL (81.5-99.8) MCH 37.9 pg H pg (27.9-34.1) MCHC 35.5 g/dL g/dL (32.4-36.7) RDW 13.2 % % (11.5-15.2) Plt Count 152 10^3/uL 10^3/uL (150-400) MPV 9.8 fL fL (8.7-11.7) Neut % (Auto) 86.5 % H % (39.3-74.2) Lymph % (Auto) 6.2 % L % (15.0-45.0) [place] % (Auto) 6.6 % % (4.5-13.0) Eos % (Auto) 0.0 % L % (0.6-7.6) Baso % (Auto) 0.2 % L % (0.3-1.7) Nucleat RBC Rel Count 0.0 % % (0.0-0.2) Absolute Neuts (auto) 5.02 10^3/uL 10^3/uL (1.70-6.50) Absolute Lymphs (auto) 0.36 10^3/uL L 10^3/uL (1.00-3.00) Absolute Monos (auto) 0.38 10^3/uL 10^3/uL (0.30-0.80) Absolute Eos (auto) 0.00 10^3/uL L 10^3/uL (0.03-0.40) Absolute Basos (auto) 0.01 10^3/uL L 10^3/uL (0.02-0.10) Absolute Nucleated RBC 0.00 10^3/uL 10^3/uL (0-0.01) Immature Gran % 0.5 % % (0.0-1.1) Immature Gran # 0.03 10^3/uL 10^3/uL (0.00-0.10) Sodium 135 mEq/L mEq/L (134-144) Potassium 3.7 mEq/L mEq/L (3.5-5.2) Chloride 98 mEq/L mEq/L (97-110) Carbon Dioxide 17 mEq/l L mEq/l (22-31) Anion Gap 20 mEq/L H mEq/L (8-16) BUN 8 mg/dL mg/dL (7-23) Creatinine 0.8 mg/dL mg/dL (0.6-1.0) Estimated GFR > 60 Glucose 134 mg/dL H mg/dL (70-100) Calcium 9.0 mg/dL mg/dL (8.5-10.4) Medications Given: Discontinued Medications Sodium Chloride (Ns) 1,000 mls @ 0 mls/hr IV EDNOW ONE; Wide Open PRN Reason: Protocol Stop: 02/22/17 22:54 Last Admin: 02/22/17 23:07 Dose: 1,000 mls Lorazepam (Ativan Injection) 1 mg IVP EDNOW ONE Stop: 02/22/17 22:54 Last Admin: 02/22/17 23:08 Dose: 1 mg Ondansetron HCl (Zofran) 4 mg IVP EDNOW ONE Stop: 02/22/17 22:54 Last Admin: 02/22/17 23:08 Dose: 4 mg Departure - Departure Disposition: Home, Routine, Self-Care Clinical Impression: Alcohol withdrawal, Nausea and vomiting in adult Condition: Good Instructions: Alcohol Withdrawal (ED), Acute Nausea and Vomiting (ED) Additional Instructions: Please seek help to decrease your alcohol use. Return emergency department for increasing abdominal pain, uncontrolled nausea vomiting, vomiting blood or dark black, or dark black tarry stools. Follow up with primary care physician 3-4 days for further care. Referrals: [facility],. [Clinic] - As per Instructions
[2017-02-23 00:09] VITALS: RESP 18
[2017-02-23 01:31] VITALS: BP 138/91; PULSE 93; TEMP 97.7; O2SAT 97
== END 2017-02-23 01:32 | disposition home or self-care (01) ==
PROC: 3E0337Z Introduction of Electrolytic and Water Balance Substance into Peripheral Vein, Percutaneous Approach (ICD-10-PCS; principal; 2017-02-22)
DX: F10.230 Alcohol dependence with withdrawal, uncomplicated (principal); E86.9 Volume depletion, unspecified; Z79.82 Long term (current) use of aspirin
CPT/HCPCS: 96374; J2060; J2405

== ENCOUNTER 2017-02-27 23:43 | Emergency (ER) | payer MEDICAID ==
[2017-02-27] MEDS ORDERED: NS 1,000 ML IV ONE (23:47)
--- NOTE | 2017-02-27 23:53 | EDPHY ---
H & P HPI/ROS: HPI CHIEF COMPLAINT: Alcohol intoxication, possible fall. HISTORY OF PRESENT ILLNESS: This patient is 61-year-old female, well known to myself as well as the emergency room she presents emergency room by ambulance after she called 911. Apparently at some point she fell on her left side. Injured her left upper ribs. She has reproducible pain on exam. She presents emergency room highly intoxicated with alcohol. Of note upon arrival to the emergency room she started yelling at me. She would not let me touch her left ribs. She started screaming in my face and got agitated. I explained that any did examine her chest wall to make sure she does not have significant crepitus or flail chest. She eventually allowed me to do this. She does appear intoxicated upon arrival. Past Medical History: Daily alcohol use, alcoholism, atrial fib Past Surgical History: No recent surgery Social History: Daily alcohol use. Family History: Noncontributory ROS REVIEW OF SYSTEMS: Limited due to patient's acute alcohol intoxication Exam Constitutional intoxicated, smells of alcohol, triage nursing summary reviewed , vital signs reviewed, awake/alert. Eyes normal conjunctivae and sclera, EOMI, PERRLA. HENT normal inspection, atraumatic, moist mucus membranes, no epistaxis, neck supple/ no meningismus, no raccoon eyes. Respiratory clear to auscultation bilaterally, normal breath sounds, no respiratory distress, no wheezing. Cardiovascular chest wall: No obvious flail chest or significant crepitus. Tenderness palpation over the left lateral chest wall. no murmur, no edema, distal pulses normal. Gastrointestinal soft, non-tender, no rebound, no guarding, normal bowel sounds, no distension, no pulsatile mass. Genitourinary no CVA tenderness. Musculoskeletal no midline vertebral tenderness, full range of motion, no calf swelling, no tenderness of extremities, no meningismus, good pulses, neurovascularly intact. Skin pink, warm, & dry, no rash, skin atraumatic. Neurologic awake, alert and oriented x 3, AAOx3, moves all 4 extremities equally, motor intact, sensory intact, CN II-XII intact, normal cerebellar, normal vision, normal speech. Psychiatric normal mood/affect. Heme/Lymph/Immune no lymphadenopathy. Differential Diagnosis: Includes but is not limited to in a particular order mechanical trip and fall, syncope, acute alcohol intoxication, rib contusion, pneumothorax, hemothorax, rib fractures Medical Decision Making: Plan for this patient check blood work, IV establishment, serum alcohol level, electrolytes, gentle IV hydration, EKG, troponin, chest x-ray with rib series. Re-evaluation: EKG interpretation by me on record in [employer] system. Impression and time of EKG 0003. This is sinus rhythm, rate of 82. There is no acute ischemic change appreciated this EKG. ED x-ray chest two view: Negative for acute cardiopulmonary disease. I do not appreciate a pneumothorax or rib fracture on exam. 0238: Serum alcohol 323. This time I did review her blood work she has hemolyzed chemistry. With elevated potassium however EKG does not indicate this. Her potassium is elevated due to hemolysis. Will repeat her chemistry panel. 0259: Patient is requesting discharge. Her workup for left lateral chest wall pain is unremarkable. I do not appreciated rib fracture or pneumothorax. Blood work initially was hemolyzed. However she had an I-STAT chemistry that is normal. EKG nonischemic. Troponin negative. She has no chest pain but does have left-sided reproducible chest wall pain it is possible she fell. Her alcohol level was noted to be 323. She is now sober. She ambulated well throughout the emergency room without any difficulty. She will be discharged from the ER at her request. Return precautions have been given. Source: Patient, EMS - Personal History Tetanus Vaccine Date: 2014 - Medical/Surgical History Hx Asthma: No Hx Chronic Respiratory Disease: No Hx Diabetes: No Hx Cardiac Disease: Yes Hx Renal Disease: No Hx Cirrhosis: No Hx Alcoholism: Yes Hx HIV/AIDS: No Hx Splenectomy or Spleen Trauma: No Other PMH: PMHx: Alcoholism, degenerative disc disease, osteoarthritis, scoliosis, heart murmur, a-fib, C difficile-Dec 2015, hx withdrawal, pancreatitis. PSHx: tonsillectomy - Social History Smoking Status: Never smoked Constitutional: Initial Vital Signs Temperature (C) 36.7 C 02/27/17 23:55 Heart Rate 87 02/27/17 23:55 Respiratory Rate 16 02/27/17 23:55 Blood Pressure 138/96 H 02/27/17 23:55 O2 Sat (%) 96 02/27/17 23:55 O2 Delivery Mode Room Air Allergies/Adverse Reactions: Sulfa (Sulfonamide Antibiotics) Allergy (Mild, Verified 02/28/17 00:03) Rash Home Medications: Medication Instructions Recorded Diltiazem Xr [Dilacor Xr] 240 mg PO DAILY #30 cap 04/24/16 Aspirin EC [Aspirin EC 81 mg (*)] 81 mg PO DAILY 09/22/16 Herbals/Supplements -Info Only 1 ea PO DAILY 09/22/16 Ondansetron HCl [Zofran] 4 mg PO Q4-6PRN PRN #10 tablet 11/21/16 GABAPENTIN 02/28/17 Phenergan 25mg (*) 02/28/17 Zoloft 100mg (*) 02/28/17 Medical Decision Making - Data Points Laboratory Results: Laboratory Results 02/28/17 01:10 02/28/17 01:57 02/28/17 02/28/17 02/28/17 02:34 01:57 01:10 WBC RBC Hgb POC Hgb 13.3 gm/dL gm/dL (12.6-16.3) Hct POC Hct 39 % % (38-47) MCV MCH MCHC RDW Plt Count MPV Neut % (Auto) Lymph % (Auto) [place] % (Auto) Eos % (Auto) Baso % (Auto) Nucleat RBC Rel Count Absolute Neuts (auto) Absolute Lymphs (auto) Absolute Monos (auto) Absolute Eos (auto) Absolute Basos (auto) Absolute Nucleated RBC Immature Gran % Immature Gran # Platelet Estimate Target Cells Tear Drop Cells Oval Macrocytes Smear Review By PT INR APTT POC Sodium 145 mEq/L H mEq/L (134-144) Sodium 144 mEq/L mEq/L REJ (134-144) POC Potassium 4.3 mEq/L mEq/L (3.3-5.0) Potassium 7.8 mEq/L H* mEq/L TNP (3.5-5.2) POC Chloride 108 mEq/L mEq/L (97-110) Chloride 109 mEq/L mEq/L TNP (97-110) Carbon Dioxide 26 mEq/l mEq/l TNP (22-31) Anion Gap 9 mEq/L mEq/L TNP (8-16) POC BUN 3 mg/dL L mg/dL (7-23) BUN 6 mg/dL L mg/dL TNP (7-23) Creatinine 0.6 mg/dL mg/dL TNP (0.6-1.0) POC Creatinine 1.0 mg/dL mg/dL (0.6-1.0) Estimated GFR > 60 TNP Glucose 81 mg/dL mg/dL TNP (70-100) POC Glucose 83 mg/dL mg/dL (70-100) Calcium 7.2 mg/dL L mg/dL TNP (8.5-10.4) Magnesium TNP Total Bilirubin TNP Conjugated Bilirubin TNP Unconjugated Bilirubin TNP AST TNP ALT TNP Alkaline Phosphatase TNP Creatine Kinase TNP Troponin I 0.020 ng/mL ng/mL (0.000-0.034) Total Protein TNP Albumin TNP Lipase TNP Specimen Hemolysis 181 Ethyl Alcohol 323 mg/dL H mg/dL TNP (0-10) 02/28/17 02/27/17 01:10 01:30 WBC 3.36 10^3/uL L 10^3/uL (3.80-9.50) RBC 3.12 10^6/uL L 10^6/uL (4.18-5.33) Hgb 11.7 g/dL L g/dL (12.6-16.3) POC Hgb Hct 34.5 % L % (38.0-47.0) POC Hct MCV 110.6 fL H fL (81.5-99.8) MCH 37.5 pg H pg (27.9-34.1) MCHC 33.9 g/dL g/dL (32.4-36.7) RDW 13.6 % % (11.5-15.2) Plt Count 91 10^3/uL L 10^3/uL (150-400) MPV 10.6 fL fL (8.7-11.7) Neut % (Auto) 61.0 % % (39.3-74.2) Lymph % (Auto) 27.1 % % (15.0-45.0) [place] % (Auto) 7.7 % % (4.5-13.0) Eos % (Auto) 1.8 % % (0.6-7.6) Baso % (Auto) 1.2 % % (0.3-1.7) Nucleat RBC Rel Count 1.2 % H % (0.0-0.2) Absolute Neuts (auto) 2.05 10^3/uL 10^3/uL (1.70-6.50) Absolute Lymphs (auto) 0.91 10^3/uL L 10^3/uL (1.00-3.00) Absolute Monos (auto) 0.26 10^3/uL L 10^3/uL (0.30-0.80) Absolute Eos (auto) 0.06 10^3/uL 10^3/uL (0.03-0.40) Absolute Basos (auto) 0.04 10^3/uL 10^3/uL (0.02-0.10) Absolute Nucleated RBC 0.04 10^3/uL H 10^3/uL (0-0.01) Immature Gran % 1.2 % H % (0.0-1.1) Immature Gran # 0.04 10^3/uL 10^3/uL (0.00-0.10) Platelet Estimate DECREASED L (ADEQ) Target Cells 1+ H Tear Drop Cells 1+ H Oval Macrocytes 1+ H Smear Review By Pending PT 14.8 SEC SEC (12.0-15.0) INR 1.16 (0.83-1.16) APTT 31.4 SEC SEC (23.0-38.0) POC Sodium Sodium POC Potassium Potassium POC Chloride Chloride Carbon Dioxide Anion Gap POC BUN BUN Creatinine POC Creatinine Estimated GFR Glucose POC Glucose Calcium Magnesium Total Bilirubin Conjugated Bilirubin Unconjugated Bilirubin AST ALT Alkaline Phosphatase Creatine Kinase Troponin I Total Protein Albumin Lipase Specimen Hemolysis Ethyl Alcohol Medications Given: Discontinued Medications Sodium Chloride (Ns) 1,000 mls @ 0 mls/hr IV EDNOW ONE; Wide Open PRN Reason: Protocol Stop: 02/27/17 23:48 Last Admin: 02/28/17 00:26 Dose: 1,000 mls Point of Care Test Results: 02/28/17 02:34 POC Sodium 145 H POC Potassium 4.3 POC Chloride 108 POC BUN 3 L POC Creatinine 1.0 POC Glucose 83 Departure - Departure Disposition: Home, Routine, Self-Care Clinical Impression: Rib contusion Qualifiers: Encounter type: initial encounter Laterality: right Qualified Code(s): S20.211A - Contusion of right front wall of thorax, initial encounter Alcohol intoxication Qualifiers: Complication of substance-induced condition: uncomplicated Qualified Code(s): F10.920 - Alcohol use, unspecified with intoxication, uncomplicated Condition: Good Instructions: Alcohol Intoxication (ED), Abuse of Alcohol (ED), Rib Contusion ( ED) Referrals: NONE *PRIMARY CARE P,. [Primary Care Provider] - As per Instructions
[2017-02-28 00:03] VITALS: TEMP 98.1
--- NOTE | 2017-02-28 00:05 | CPEKG ---
Heart Rate: 82 RR Interval: 732 P-R Interval: 176 QRSD Interval: 70 QT Interval: 420 QTC Interval: 491 P [place]: 6 QRS [place]: 3 T Wave [place]: 24 EKG Severity - BORDERLINE ECG - EKG Impression: SINUS RHYTHM EKG Impression: LOW VOLTAGE THROUGHOUT EKG Impression: BORDERLINE PROLONGED QT INTERVAL Electronically Signed By: Jerod Gomez 28-Feb-2017 07:06:34
[2017-02-28 01:19] LABS: PLATELET COUNT 91 10^3/uL (150-400)
[2017-02-28 02:03] LABS: INR 1.16 (0.83-1.16); PROTIME(PATIENT) 14.8 SEC (12.0-15.0)
[2017-02-28 03:22] VITALS: BP 133/76; PULSE 86; RESP 18; O2SAT 93
== END 2017-02-28 03:21 | disposition home or self-care (01) ==
LOC: EDUNIT#
PROC: 3E0337Z Introduction of Electrolytic and Water Balance Substance into Peripheral Vein, Percutaneous Approach (ICD-10-PCS; principal; 2017-02-27)
DX: S20.211A Contusion of right front wall of thorax, initial encounter (principal); F10.920 Alcohol use, unspecified with intoxication, uncomplicated; E86.9 Volume depletion, unspecified; Z79.82 Long term (current) use of aspirin; W19.XXXA Unspecified fall, initial encounter
CPT/HCPCS: 82947-QW; G0480

== ENCOUNTER 2017-02-28 18:42 | Inpatient (IN) | payer MEDICAID ==
[2017-02-28] MEDS ORDERED: ONDANSETRON 4 MG/2 ML VIAL IVP ONE (19:03)
[2017-02-28] MEDS ORDERED: NS 1,000 ML IV ONE ×2 (19:03→22:19)
--- NOTE | 2017-02-28 19:07 | EDPHY ---
H & P Time Seen by Provider: 02/28/17 18:51 HPI/ROS: CHIEF COMPLAINT: Vomiting, alcohol withdrawal HISTORY OF PRESENT ILLNESS: 61-year-old female presents to the emergency department by private vehicle complaining of multiple episodes of vomiting since 6 o'clock this morning. The patient states "I have been vomiting all day ". The patient's is an alcoholic and last drank 2 days ago. She typically drinks a pt of vodka daily. She has never had an alcohol withdrawal seizure. She was seen in the emergency department yesterday after she had a mechanical fall injuring her left ribs. She had negative x-rays. She now presents with multiple episodes of vomiting and alcohol withdrawal. She denies chest pain or difficulty breathing. She has diffuse abdominal pain especially in the upper part of her abdomen. No back pain. No urinary symptoms. The patient does state that she has urinated today. She did not sustain another fall or hit her head. REVIEW OF SYSTEMS: Constitutional: No fever, no chills. Eyes: No double or blurry vision. ENT: No sore throat. Respiratory: No cough, no shortness of breath. Cardiac: No chest pain. Gastrointestinal: Vomiting and abdominal pain as above. No diarrhea. Genitourinary: No dysuria. Musculoskeletal: No neck or back pain. Skin: No rashes. Neurological: No headache. Past Medical/Surgical History: Alcoholism, osteoarthritis, C diff, pancreatitis Social History: Single and lives alone in [place] Smoking Status: Never smoked Physical Exam: General Appearance: Alert, no distress. Anxious, tremulous at rest. Eyes: Mildly icteric sclera. Pupils equal and round. Extraocular motions are all intact. ENT: Mouth: Mucous membranes very dry. Respiratory: No wheezing, rhonchi, or rales, lungs are clear to auscultation. Cardiovascular: Regular rate and rhythm. Gastrointestinal: Abdomen is soft. Tenderness with palpation especially in the epigastric area as well as in the right and the left upper quadrant. Neurological: Alert and oriented x 3, cranial nerves II through XII grossly intact Skin: Warm and dry, no rashes. Musculoskeletal: Nontender to palpate along the cervical, thoracic or lumbar spine. Neck is supple. Extremities: Full range of motion and no peripheral edema. Psychiatric: Patient is oriented X 3, there is no agitation. Constitutional: Initial Vital Signs Temperature (C) 37.4 C 02/28/17 18:45 Heart Rate 125 H 02/28/17 18:45 Respiratory Rate 20 02/28/17 18:45 Blood Pressure 140/90 H 02/28/17 18:45 O2 Sat (%) 95 02/28/17 18:45 O2 Delivery Mode Room Air Allergies/Adverse Reactions: Sulfa (Sulfonamide Antibiotics) Allergy (Mild, Verified 02/28/17 18:43) Rash Home Medications: Medication Instructions Recorded Diltiazem Xr [Dilacor Xr] 240 mg PO DAILY #30 cap 04/24/16 Aspirin EC [Aspirin EC 81 mg (*)] 81 mg PO DAILY 09/22/16 Herbals/Supplements -Info Only 1 ea PO DAILY 09/22/16 Ondansetron HCl [Zofran] 4 mg PO Q4-6PRN PRN #10 tablet 11/21/16 Phenergan 25mg (*) 02/28/17 Zoloft 100mg (*) 02/28/17 Medical Decision Making ED Course/Re-evaluation: 61-year-old female presents to the emergency department with multiple episodes of nausea vomiting and acute alcohol withdrawal. The patient received 2 L of IV normal saline, 2 mg of Ativan IV, initially IV Zofran and then was given IV Phenergan. The patient was feeling better and was no longer vomiting in the emergency department, however she was still very tremulous. Heart rate 112. Laboratory studies were reviewed and the patient had elevated conjugated bilirubin of 2.6. Elevated transaminases. Lipase was normal. The patient will be admitted to hospitalist. Differential Diagnosis: Including but not limited to dehydration, alcoholic ketoacidosis, acute alcohol withdrawal, hepatitis, pancreatitis, GERD, peptic ulcer disease - Data Points Laboratory Results: Laboratory Results 02/28/17 20:37 02/28/17 20:37 02/28/17 02/28/17 20:37 20:37 WBC 3.58 10^3/uL L 10^3/uL (3.80-9.50) RBC 3.62 10^6/uL L 10^6/uL (4.18-5.33) Hgb 13.3 g/dL g/dL (12.6-16.3) Hct 38.9 % % (38.0-47.0) MCV 107.5 fL H fL (81.5-99.8) MCH 36.7 pg H pg (27.9-34.1) MCHC 34.2 g/dL g/dL (32.4-36.7) RDW 13.6 % % (11.5-15.2) Plt Count 59 10^3/uL L 10^3/uL (150-400) MPV 11.2 fL fL (8.7-11.7) Neut % (Auto) 85.7 % H % (39.3-74.2) Lymph % (Auto) 8.7 % L % (15.0-45.0) [place] % (Auto) 4.7 % % (4.5-13.0) Eos % (Auto) 0.3 % L % (0.6-7.6) Baso % (Auto) 0.3 % % (0.3-1.7) Nucleat RBC Rel Count 0.0 % % (0.0-0.2) Absolute Neuts (auto) 3.07 10^3/uL 10^3/uL (1.70-6.50) Absolute Lymphs (auto) 0.31 10^3/uL L 10^3/uL (1.00-3.00) Absolute Monos (auto) 0.17 10^3/uL L 10^3/uL (0.30-0.80) Absolute Eos (auto) 0.01 10^3/uL L 10^3/uL (0.03-0.40) Absolute Basos (auto) 0.01 10^3/uL L 10^3/uL (0.02-0.10) Absolute Nucleated RBC 0.00 10^3/uL 10^3/uL (0-0.01) Immature Gran % 0.3 % % (0.0-1.1) Immature Gran # 0.01 10^3/uL 10^3/uL (0.00-0.10) Sodium 138 mEq/L mEq/L (134-144) Potassium 4.1 mEq/L mEq/L (3.5-5.2) Chloride 101 mEq/L mEq/L (97-110) Carbon Dioxide 18 mEq/l L D mEq/l (22-31) Anion Gap 19 mEq/L H mEq/L (8-16) BUN 4 mg/dL L mg/dL (7-23) Creatinine 0.6 mg/dL mg/dL (0.6-1.0) Estimated GFR > 60 Glucose 88 mg/dL mg/dL (70-100) Calcium 8.2 mg/dL L mg/dL (8.5-10.4) Total Bilirubin 4.4 mg/dL H mg/dL (0.1-1.4) Conjugated Bilirubin 2.6 mg/dL H mg/dL (0.0-0.5) Unconjugated Bilirubin 1.8 mg/dL H mg/dL (0.0-1.1) AST 191 IU/L H IU/L (14-46) ALT 91 IU/L H IU/L (9-52) Alkaline Phosphatase 302 IU/L H IU/L (38-126) Total Protein 5.8 g/dL L g/dL (6.3-8.2) Albumin 3.5 g/dL g/dL (3.5-5.0) Lipase 132 IU/L IU/L (23-300) Ethyl Alcohol < 10 mg/dL mg/dL (0-10) Medications Given: Potassium Chloride/Sodium Chloride (Ns W/ 20 Kcl/L) 1,000 mls @ 100 mls/hr IV CONT ZHANE Stop: 08/27/17 23:29 Last Admin: 03/01/17 00:40 Dose: 1,000 mls Thiamine HCl 500 mg/ Sodium (Chloride) 105 mls @ 210 mls/hr IV DAILY ZHANE Stop: 03/03/17 23:44 Last Admin: 03/01/17 00:40 Dose: 105 mls Oxycodone HCl (Oxycodone Ir) 5 - 10 mg PO Q3HRS PRN PRN Reason: Pain, Severe Able to Take PO Stop: 03/10/17 23:27 Last Admin: 03/01/17 00:38 Dose: 5 mg Discontinued Medications Chlordiazepoxide HCl (Librium) 25 mg PO EDNOW ONE Stop: 02/28/17 23:41 Last Admin: 02/28/17 23:44 Dose: 25 mg Sodium Chloride (Ns) 1,000 mls @ 0 mls/hr IV EDNOW ONE; Wide Open PRN Reason: Protocol Stop: 02/28/17 19:04 Last Admin: 02/28/17 19:38 Dose: 1,000 mls Sodium Chloride (Ns) 1,000 mls @ 0 mls/hr IV ONCE ONE PRN Reason: Wide Open Stop: 02/28/17 22:20 Last Admin: 02/28/17 22:32 Dose: 1,000 mls Lorazepam (Ativan Injection) 1 mg IVP EDNOW ONE Stop: 02/28/17 19:34 Last Admin: 02/28/17 19:39 Dose: 1 mg Lorazepam (Ativan Injection) 1 mg IVP EDNOW ONE Stop: 02/28/17 22:20 Last Admin: 02/28/17 22:33 Dose: 1 mg Ondansetron HCl (Zofran) 4 mg IVP EDNOW ONE Stop: 02/28/17 19:04 Last Admin: 02/28/17 19:38 Dose: 4 mg Promethazine HCl (Phenergan) 12.5 mg IVP EDNOW ONE Stop: 02/28/17 22:21 Last Admin: 02/28/17 22:33 Dose: 12.5 mg Departure - Departure Disposition: [facility] Inpatient Acute Clinical Impression: Abdominal pain Qualifiers: Abdominal location: epigastric Qualified Code(s): R10.13 - Epigastric pain Vomiting Qualifiers: Vomiting type: unspecified Vomiting Intractability: intractable Nausea presence : with nausea Qualified Code(s): R11.2 - Nausea with vomiting, unspecified Alcohol withdrawal Qualifiers: Complication of substance-induced condition: uncomplicated Qualified Code(s): F10.230 - Alcohol dependence with withdrawal, uncomplicated Condition: Good
[2017-02-28] MEDS ORDERED: LORazepam 2 MG/ML INJ ONE ×2 (19:31→22:21)
[2017-02-28] MEDS ORDERED: LORazepam 2 MG/ML INJ IVP ONE ×2 (19:33→22:19)
[2017-02-28 20:58] LABS: PLATELET COUNT 59 10^3/uL (150-400)
[2017-02-28] MEDS ORDERED: PROMETHAZINE HCL 25 MG/ML INJ IVP ONE (22:20)
[2017-02-28] MEDS ORDERED: PROMETHAZINE HCL 25 MG/ML INJ ONE (22:20)
[2017-02-28] MEDS ORDERED: ONDANSETRON 4 MG/2 ML VIAL IVP PRN (23:28)
[2017-02-28] MEDS ORDERED: ONDANSETRON DISINTEGRATING 4 MG TAB PO PRN (23:28)
[2017-02-28] MEDS ORDERED: NS W/ 20 KCl/L 1,000 ML IV SCH (23:30)
[2017-02-28] MEDS ORDERED: chlordiazePOXIDE 25 MG CAP PO ONE (23:40)
[2017-02-28] MEDS ORDERED: LORazepam 2 MG/ML INJ IVP PRN (23:41)
[2017-02-28] MEDS ORDERED: chlordiazePOXIDE 25 MG CAP ONE (23:44)
[2017-03-01] MEDS: oxyCODONE IR 5 MG TAB PO PRN ×2 (00:38→20:33)
[2017-03-01] MEDS: THIAMINE HCL 500 MG in NS 100 ML IV SCH ×2 (00:40→10:10)
[2017-03-01 05:35] LABS: PLATELET COUNT 62 10^3/uL (150-400)
[2017-03-01 05:41] LABS: INR 1.2 (0.83-1.16); PROTIME(PATIENT) 15.2 SEC (12.0-15.0)
[2017-03-01] MEDS ORDERED: PROTOCOL MAGNESIUM 1 DOSE IV PRN (06:44)
[2017-03-01] MEDS ORDERED: PROTOCOL K PHOSPHATE 1 DOSE IV PRN (06:44)
[2017-03-01] MEDS ORDERED: PROTOCOL POTASSIUM 1 DOSE MISC PRN (06:44)
[2017-03-01] MEDS ORDERED: PROTOCOL CALCIUM 1 DOSE IV PRN (06:44)
[2017-03-01] MEDS ORDERED: FAMOTIDINE 20 MG/NACL 50 ML IV SCH (09:00)
[2017-03-01] MEDS ORDERED: ENOXAPARIN 40 MG/0.4 ML SYR SC SCH (09:00)
--- NOTE | 2017-03-01 09:19 | HOSPPROG ---
Hospitalist Progress Note Assessment/Plan: Brief Admit Note. H&P dictated Pleasant 61 yo F with pmhx significant for chronic alcohol intake (1 pint vodka almost daily) presents back to ED one day following fall and evaluation for left rib pain. Patient discharged home and developed intractable nausea/ vomiting. last alcohol intake was 48 hours prior to presentation. Patient complaining also of increased epigastric abdominal pain in addition to rib pain below left breast. no fevers/chills/diarrhea. patient with significant tremor and tachycardia noted in ED. etoh withdrawal - CIWA protocol. HR remains elevated. PT/OT. nausea/vomiting improved following anti-emetics. continue prn. etoh hepatitis - etoh cessation advised for life. repeat lfts in AM. transaminitis - likely related to etoh liver hyperbilirubinemia - as above. leukopenia - likely related to etoh/liver disease. thrombocytopenia - 2/2 etoh and likely underlying liver disease. no active bleeding continue to monitor closely. transfuse for any active bleeding. macrocytosis - 2/2 etoh intake. thiamine, folic acid, mv. atrial fibrillation - HR tachycardic likely related to etoh withdrawal. continue CIWA protocol as above. resume diltiazem when dosing verified. abdominal pain - supportive care with prn medications. FEN - IVF. electrolyte replacement prn. diet as tolerated. PPX - SCDs. no anticoagulation 2/2 thrombocytosis and bleeding risk. COR - FULL. Admit INpatient status given severity of withdrawal symptoms, lft abnormalities. Objective: Vital Signs Temp Pulse Resp BP Pulse Ox 36.6 C 95 17 141/98 H 98 03/01/17 08:00 03/01/17 08:00 03/01/17 08:00 03/01/17 08:00 03/01/17 08:00 Laboratory Results 03/01/17 04:05 03/01/17 04:05 02/28/17 03/01/17 03/02/17 05:59 05:59 05:59 Intake Total 2850 Output Total 375 Balance 2475 PT 15.2 SEC (12.0-15.0) H 03/01/17 04:05 INR 1.20 (0.83-1.16) H 03/01/17 04:05 ICD10 Worksheet Patient Problems: Problems Problem Status Onset Abdominal pain Acute Alcohol withdrawal Acute Vomiting Acute Alcohol abuse Acute Alcohol withdrawal Acute Atrial fibrillation with RVR Acute C. difficile diarrhea Acute 09/23/16 Nausea & vomiting Acute Nausea and vomiting in adult Acute
--- NOTE | 2017-03-01 09:23 | ASMTCASEMG ---
Living Arrangements What is your living Answers: Alone arrangement? Who do you live with? Type Of Residence What kind of residence do Answers: House you live in? Discharge Plan Comments Coordination Status Comments Notes: Pt is a 61 y/o female admitted w/ ETOH withdrawals and vomiting. Pt is currently on a CIWA protocol. PT has been ordered and awaiting recommendations. Needs are TBD at this time. CM to follow. Date Signed: 03/01/2017 09:22 AM Electronically Signed By:HERRERA Ashley
[2017-03-01] MEDS: LIDOCAINE 5% 1 EA PATCH TD SCH (09:26)
[2017-03-01] MEDS ORDERED: MAGNESIUM SULF 2 GM/WATER 50 ML IV ONE (10:03)
--- NOTE | 2017-03-01 10:34 | PDMN ---
Medical Necessity Medical necessity: est los>2mn for etoh withdrawal, N/V, and liver abnormalities ; comorbid etoh abuse with hepatitis, afib, abd pain, leukopenia, thrombocytopenia; per order and progress note 02/28/17
--- NOTE | 2017-03-01 10:43 | GHP ---
[f rep st] HISTORY AND PHYSICAL DATE OF ADMISSION: 02/28/2017 CHIEF COMPLAINT: Nausea, vomiting, abdominal pain. HISTORY OF PRESENT ILLNESS: This is a pleasant 61-year-old female with a past medical history signif icant for alcohol dependence and likely underlying alcohol liver disease, a history of falls, atrial fibrillation, gastritis, who presents to the emergency department for the second time in 24 hours wit h complaints of intractable nausea, vomiting, and abdominal pain starting at 0600 on date of presenta tion. The patient was last seen in the emergency department day prior for following a fall with comp laints of left-sided rib pain. She was diagnosed with contusions related to her fall. The patient a woke at 0600 with nausea, vomiting, and her abdominal pain. She also reports some unsteadiness and e asy bruising with multiple contusions related to her falls. The patient does have a history of drink ing 1 pint of vodka on an almost daily basis. She does appear to under represent this when she parekh es her report to just a few times a week, but she is employed and continues to work. The patient den ies any fevers, chills, diarrhea. Patient with significant tremor and tachycardia noted in the emerg ency department as well as generalized weakness. She does have no altered mental status, but signifi cant tremor and increased risk for a fall. REVIEW OF SYSTEMS: GENERAL: Patient does report some right angle edema, increased when more sedenta ry. She is unsteady on her feet. Has had easy bruising on her extremities without any active bleedi ng. Remainder of review of systems negative except as noted above. ALLERGIES: Sulfa. HOME MEDICATIONS: List incomplete but EMR notes Zoloft 100 mg, Phenergan 25 mg, Zofran 4 mg p.r.n., diltiazem 240 mg p.o. daily, aspirin 81 mg p.o. daily. PAST MEDICAL HISTORY: Significant for atrial fibrillation, with alcohol abuse with a history of alco hol withdrawal, falls, C diff, gastritis, left radius fracture, pancreatitis, osteoarthritis. PAST SURGICAL HISTORY: Significant for tonsillectomy, adenoidectomy. FAMILY HISTORY: Significant for a father with accidental at age 42. Mother with history of es ophageal cancer, age 52, degenerative disk disease and scoliosis. SOCIAL HISTORY: Patient lives alone. She does not use illicit drugs or tobacco, but does drink appr oximately 1 pint of vodka concerning for daily use, but patient reports just 3-4 times per week. CODE STATUS: Full. Patient desires her friends Renay or Jameson Carbone to act as proxy if needed. PHYSICAL EXAMINATION: VITAL SIGNS: Upon arrival to the emergency department, blood pressure 140/90, heart rate 125, respiratory rate 20, O2 sat 94% on room air, temperature 37.4. Vitals on the floor at time of interview available 143/99, heart rate 104, respiratory rate 16, O2 sat 99% on 2 L by nasa l cannula, temperature 36.9. GENERAL: No acute distress. Frail, pale-appearing female who is lying quietly in bed. Appears quite fatigued, nontoxic. HEAD: Normocephalic. The patient with multiple contusions over her left eye, on her face, her bilateral arms and lower extremities as well as abdom en. EYES: Extraocular muscles grossly intact. No scleral icterus. Mild conjunctival injection not ed. There is no discharge. ENT: Mucous membranes appear dry. No oropharyngeal erythema or exudate s. Dentition intact. NECK: Supple. Trachea midline. CV: Tachycardic with heart rate in the 1 te ens to 120s. No murmurs, rubs, or gallops. Irregularly irregular. RESPIRATORY: Lungs clear to aus cultation bilaterally. No wheezes, rales, or rhonchi. Diminished inspiratory effort bibasilarly. A BDOMEN: Soft, obese with positive bowel sounds. Tenderness to palpation appreciated in the epigastr ic region. Also below patient's left breast, midline rib tenderness to palpation. : No Swanson in place. No suprapubic tenderness to palpation. EXTREMITIES: No cyanosis, clubbing, or edema appreci ated. Moves all extremities with generalized weakness, but symmetric. No focal deficits. MUSCULOSK ELETAL: Strength grossly normal as noted above. NEURO: Cranial nerves 2-12 intact symmetric bilate rally. Patient without any asterixis. Sensation intact in upper and lower extremities. No focal fi ndings. PSYCH: The patient does appear a little bit anxious with additional time spent regarding marquez molina's current medical status and need for alcohol sensation and increased risk for liver failure. She is otherwise pleasant and cooperative. LABORATORY STUDIES: WBC 3.58, H and H are 13.3 and 38.9, MCV 907.5, platelet count is 59. Neutrophi ls slightly elevated percent 85.7. PT 15.2, INR is 1.2, PTT is 31.9. Sodium is 139, potassium 4.1, chloride is 101, CO2 is 18, anion ga p is 19, BUN 4, creatinine 0.6, GFR of greater than 60, calcium 8.2, total bili is 4.4, conjugated 2. 6, unconjugated 1.8. ALT is 91, AST is 191, alk phos is 302, total protein 5.8, albumin 3.5, lipase is 132. UA, specific gravity 1.020, pH of 5.0, trace ketones, urobilinogen. Opiates negative, benzos 1000, ethyl alcohol less than 10. ASSESSMENT AND PLAN: A pleasant 61-year-old female with history significant for chronic alcohol inta ke, approximately 1 pint of vodka almost daily, presents with epigastric pain, nausea, vomiting. 1. Alcohol withdrawal. CIWA protocol is in order. Heart rate remains elevated despite multiple med ications. Physical Therapy/Occupational Therapy has been consulted given patient's increasing genera lized weakness and tremor with increased fall risk. 2. Nausea, vomiting, improved following antiemetics. Continue p.r.n. Zofran. Patient with a histor y of gastritis. Will continue with H2 riley. Consider PPI. 3. Alcoholic hepatitis. Alcohol cessation was advised for life. We will plan to repeat LFTs in the morning. 4. Transaminitis, likely related to alcoholic liver disease. 5. Hyperbilirubinemia. Patient without any right upper quadrant abdominal pain. Negative Sandy si gn. No evidence of obstructive process, likely related to patient's alcoholic liver disease. Will p patricia to continue to monitor overnight. Consider further imaging. 6. Leukopenia, likely related to alcohol and liver disease. 7. Thrombocytopenia secondary to alcohol and underlying liver disease. No active bleeding currently . Continue to monitor. Transfuse for any active bleeding. 8. Macrocytosis secondary to alcohol intake. Thiamine, folic acid, and multivitamin ordered. 9. Atrial fibrillation. Heart rate tachycardic, likely related to alcohol withdrawal. Continue CIW A protocol as above. Resume diazepam when dosing is verified. 10. Abdominal pain. Supportive care with p.r.n. medications. The pain is improved but still persis tent. 11. Fluid, electrolyte, nutrition. IV fluids. Electrolyte replacement p.r.n. Diet as tolerated. 12. Prophylaxis. SCDs. No anticoagulation secondary to thrombocytosis and bleeding risks. 13. Code status is full. 14. Disposition: Patient admitted to inpatient status given severity of withdrawal symptoms and mul tiple LFT abnormalities. The patient will continue to require [facility] protocol, possible escalation. /[id number]/MODL
--- NOTE | 2017-03-01 11:07 | HOSPPROG ---
Hospitalist Progress Note Assessment/Plan: #. Alcohol withdrawal - doing reasonably well. Continue with prn Ativan both PO and IV. Cessation advised and encouraged. #. N/V - resolved. Lipase WNL. Follow throughout the day today. #. Alcoholic Hepatitis - discriminant function measured at 9. No steroids. LFT's trending down. #. Leukocytosis - follow for any fevers. #. Thrombocytopenia - secondary to alcohol intake. No ative bleeding. #. Afib - paroxysmal. NSR now. Will resume diltiazem. No anticoagulation as low platelets. #. Bowel/Bladder - lower IVF's as urinary incontinence noted. Bowel regimen if constipation. #. DVT prophylaxis - no heparin or lovenox in light of low platelets, compression stockings in place. #. Dispo - likely could be discharged home but will need to establish with new PCP and to see how she does with PT. Subjective: Patient states that her appetitie is not great but she did have some soup for breakfast. No nausea or vomiting today. We discussed working with physical therapy today and see how she does and potentially look at home tomorrow. She was in rehab for alcohol in 1989 but nothing since. No history of alcohol w/d seizure. Objective: Vital Signs Temp Pulse Resp BP Pulse Ox 36.6 C 95 17 141/98 H 98 03/01/17 08:00 03/01/17 08:00 03/01/17 08:00 03/01/17 08:00 03/01/17 10:13 Laboratory Results 03/01/17 04:05 03/01/17 04:05 02/28/17 03/01/17 03/02/17 05:59 05:59 05:59 Intake Total 2850 Output Total 375 Balance 2475 PT 15.2 SEC (12.0-15.0) H 03/01/17 04:05 INR 1.20 (0.83-1.16) H 03/01/17 04:05 - Physical Exam Constitutional: no apparent distress Eyes: PERRL, anicteric sclera Cardiovascular: regular rate and rhythym, no murmur, rub, or gallop Respiratory: no respiratory distress, no rales or rhonchi, clear to auscultation Gastrointestinal: normoactive bowel sounds, soft, non-tender abdomen, no palpable masses Genitourinary: No nicole in urethra Skin: warm, normal color (brusing around knees) Neurologic: AAOx3, No asterixes ICD10 Worksheet Patient Problems: Problems Problem Status Onset Abdominal pain Acute Alcohol withdrawal Acute Vomiting Acute Alcohol abuse Acute Alcohol withdrawal Acute Atrial fibrillation with RVR Acute C. difficile diarrhea Acute 09/23/16 Nausea & vomiting Acute Nausea and vomiting in adult Acute
[2017-03-01] MEDS ORDERED: LORazepam 1 MG TAB PO PRN (11:09)
[2017-03-01] MEDS ORDERED: NS 1,000 ML IV SCH (11:15)
[2017-03-01] MEDS ORDERED: DILTIAZEM XR 240 MG CAP PO SCH (11:30)
[2017-03-01] MEDS: DILTIAZEM XR 240 MG CAP PO SCH (11:52)
[2017-03-01] MEDS: SERTRALINE HCL 50 MG TAB PO SCH (11:54)
[2017-03-01] MEDS ORDERED: PATCH REMOVAL 1 EA PATCH TD SCH (21:00)
[2017-03-02] MEDS: oxyCODONE IR 5 MG TAB PO PRN (04:15)
[2017-03-02 05:16] LABS: PLATELET COUNT 49 10^3/uL (150-400)
[2017-03-02] MEDS ORDERED: POTASSIUM CL 10 MEQ TAB PO ONE (07:08)
[2017-03-02] MEDS ORDERED: MAGNESIUM SULF 1 GM/DEXTROSE 100 ML IV ONE (07:09)
[2017-03-02] MEDS ORDERED: FAMOTIDINE 20 MG TAB PO SCH (09:00)
[2017-03-02] MEDS ORDERED: THIAMINE HCL 100 MG TAB PO SCH (09:00)
[2017-03-02] MEDS ORDERED: PROTOCOL CALCIUM 1 DOSE IV PRN (09:19)
[2017-03-02] MEDS: LIDOCAINE 5% 1 EA PATCH TD SCH (09:30)
[2017-03-02] MEDS: SERTRALINE HCL 50 MG TAB PO SCH (09:31)
[2017-03-02] MEDS: DILTIAZEM XR 240 MG CAP PO SCH (09:32)
[2017-03-02 11:21] VITALS: BP 120/81; PULSE 78; RESP 17; TEMP 98.1; O2SAT 95
--- NOTE | 2017-03-02 11:59 | ASMTCMCOM ---
CM Note CM Note Notes: Chart reviewed. Met with patient who is open and katie about her ETOH and falls. She states that at one point in time she underwent inpatient treatment and was sober for a year. I have provided her with a list of resources that accept medicaid in [place]. Per PT she is likely at baseline as far as her ADLS. It is her preference to return to her home. CM to follow. Date Signed: 03/02/2017 11:58 AM Electronically Signed By:Tamika Stanley RN
--- NOTE | 2017-03-02 11:59 | ASMTCMCOM ---
CM Note CM Note Notes: Chart reviewed. Met with patient who is open and katie about her ETOH and falls. She states that at one point in time she underwent inpatient treatment and was sober for a year. I have provided her with a list of resources that accept medicaid in [place]. Per PT she is likely at baseline as far as her ADLS. It is her preference to return to her home. CM to follow. Date Signed: 03/02/2017 11:58 AM Electronically Signed By:Tamika Stanley RN
--- NOTE | 2017-03-02 13:38 | GDS ---
[f rep st] DISCHARGE SUMMARY PRIMARY CARE PROVIDER: None currently established. DISCHARGE DIAGNOSES: 1. Alcohol withdrawal. 2. Mechanical fall with rib pain. HISTORY OF PRESENT ILLNESS: The patient is a pleasant 61-year-old female with a past medical history of significant alcohol abuse. She had been in the emergency room the day prior to her admission aft er she had a fall injuring her left ribs. These x-rays were negative. She came back to the emergenc y room after she developed episodes of nausea and vomiting and tremor, felt secondary to alcohol with drawal. She was admitted for alcohol withdrawal and nausea and vomiting. Fortunately, her vomiting subsided and she has been able to tolerate small amounts of food here in the hospital and has been ab le to escalate her diet. Her lipase level was normal. She did have a mildly low bicarb level which resolved, but could be consistent with a mild alcoholic ketoacidosis. Social Work did meet with her and provided resources for substance abuse here in the community. She does seem motivated to pursue this. She was in rehabilitation in the early and was sober for a t least a 1-year period of time. I did discuss with her that she does have lab abnormalities which c ould be consistent with someone with cirrhosis, including a mildly elevated INR at 1.2, and an ALT an d AST of 60 and 121 respectively, as well as an elevated bilirubin level in the 3-4 range. I did cau tion her that with continued alcohol abuse, she could have progressive cirrhosis of her liver. She also has blood abnormalities, having thrombocytopenia and anemia and leukopenia, which could be s een as well and the consequence of alcohol abuse. She states that her previous primary care provider sent her a letter stating that she was fired from the practice secondary to multiple missed appointm ents so the patient does understand she needs to establish with a new primary care provider and have follow up on the lab abnormalities that we discussed. Of note during this hospitalization as well she had an elevated TSH of 12.7, free T4 was requested to be added onto her morning labs and is currently pending at this point in time. Nonetheless, even if this is subclinical hypothyroidism with a TSH above 10, I would recommend that we initiate levothyro xine. I discussed this with her and emphasized that she will need to have followup blood tests withi n a 6-8 week time period to make sure that the prescribed levothyroxine dose is appropriate. She add ed that she has noted some hair loss over the prior year. HOSPITAL COURSE BY PROBLEM: 1. Alcohol withdrawal: She seems to be doing very well today. She seems more alert and calm, witho ut any tremor on exam. I do recommend that she have a prescription for Ativan leaving the hospital t hat she can take as needed for any anxiety or tremor. 2. Hypothyroidism: This may be a subclinical hypothyroidism, but with the TSH above 10, I do recomm end treatment. Free T4 has been added onto her morning labs from today, but is currently pending. I have dosed her levothyroxine based upon her weight and she understands she will need a followup TSH done within 6-8 weeks for reassessment. 3. Nausea, vomiting: This has resolved. Lipase was within normal limits. She seems to be tolerati ng a regular diet at this time. 4. Alcoholic hepatitis: Her discriminant function measured at 9, so no steroids were administered. Liver enzymes appear to be trending downward, but will need reassessment as she continues off alcoho l. 5. Thrombocytopenia: Likely related to her alcohol use. This will need followup when she reestabli shes with primary care. 6. Atrial fibrillation: The patient was in normal sinus rhythm during the hospitalization. She scales s take diltiazem for rate control. No anticoagulation in light of low platelets and recent falls. 7. Rib pain: Likely related to soft tissue injury from her fall. I did discharge her with a small supply of oxycodone in case of moderate to severe pain. A lidocaine patch was also used during the h ospitalization and appeared to be helpful to her. DISPOSITION: She appears stable to be discharged home. She will be looking into a new primary care provider. Physical Therapy felt that she was at her baseline in working with her. Social Work did m eet with the patient as well and provided resources for alcohol rehabilitation. PHYSICAL EXAMINATION: VITAL SIGNS: On day of discharge temperature 120/81, heart rate is 78, respir atory rate 17, saturating 95% on room air. GENERAL: Patient was sitting in a chair at the bedside, comfortable, no acute distress. HEART: Regular, no murmurs. LUNGS: Clear to auscultation with nor mal respiratory effort. ABDOMEN: Soft, nontender, nondistended. GENITOURINARY: No Swanson catheter in place. EXTREMITIES: No significant pitting edema. MUSCULOSKELETAL: No calf pain with palpation . SKIN: Mild ecchymoses in the lower extremities and left eye, otherwise no concerning rashes. NOTABLE STUDIES: White blood cell count 2.8, hemoglobin 10.3, platelets 49. Sodium is 132, potassiu m 3.8, chloride 101, bicarb 27, BUN 4, creatinine 0.6, glucose of 92, magnesium 1.5 and was replaced. AST 121, ALT 60, alkaline phosphatase 190, total protein 4.2, albumin 2.0, bilirubin total 4.8, con jugated 2.9, unconjugated 1.9. TSH 12.7, free T4 pending. Urine toxicology did not show any alcohol on admission. INR 1.2. DISCHARGE MEDICATIONS: 1. Famotidine 20 mg daily. 2. Levothyroxine 112 mcg daily. 3. Lidocaine patch 1 daily as needed. 4. Lorazepam 1 mg every 4 hours as needed for anxiety or tremor. 5. Oxycodone 5 mg tablets 1 tablet every 3 hours as needed for pain, 10 tablets dispensed. 6. Diltiazem XR 240 mg daily. 7. Sertraline 75 mg daily. DISCHARGE INSTRUCTIONS: The patient was provided resources for alcohol rehabilitation here in the co [place]mun[place], which she will be pursuing. She will also be finding a new primary care provider for follow up, in particular on her blood work abnormalities from this hospitalization, but otherwise she appear s stable from an alcohol withdrawal standpoint and will have home Ativan if any tremor or anxiety. /[id number]/MODL
[2017-03-03] MEDS ORDERED: LEVOTHYROXINE 112 MCG TAB PO SCH (06:00)
== END 2017-03-02 14:50 | disposition home or self-care (01) | DRG 897 ==
LOC: OBSVTOIN 22:29 → F2W 03-01 00:04
PROVIDERS: ADMIT Family Medicine; ATTEND Family Medicine
DX: F10.230 Alcohol dependence with withdrawal, uncomplicated (principal); D64.9 Anemia, unspecified; D69.6 Thrombocytopenia, unspecified; E03.9 Hypothyroidism, unspecified; I48.91 Unspecified atrial fibrillation; K70.10 Alcoholic hepatitis without ascites; R07.81 Pleurodynia; W19.XXXA Unspecified fall, initial encounter
CPT/HCPCS: 80307; 82947-QW; 96374; 97116-GP; 97161-GP; 97530-GP; G0480; J1650; J2060; J2405; J2550; J3411; J3475

== ENCOUNTER 2017-03-11 21:50 | Emergency (ER) | payer MEDICAID ==
--- NOTE | 2017-03-11 21:57 | EDPHY ---
H & P Stated Complaint: n/v, rib pain from fall HPI/ROS: HPI CHIEF COMPLAINT: Alcohol withdrawal, right rib pain status post fall HISTORY OF PRESENT ILLNESS: This patient is a 61-year-old female very well known to myself as well as the emergency room this is her 28th ER visit, she presents emergency room with alcohol withdrawal. She is an alcoholic drinks daily. Her last drink was last night. Or close to 24 hours ago. S she states she did not drink today and she did have any alcohol left her house. She began feeling worse this evening with nausea vomiting tremors. She denies hallucinations. She does state that she drove here. She distally reports she fell last night with right sided rib pain. Past Medical History: Alcoholism, daily alcohol use, AFib Past Surgical History: No recent surgery Social History: Lives locally in [place], [facility] Family History: Noncontributory ROS REVIEW OF SYSTEMS: A comprehensive 10 point review of systems is otherwise negative aside from elements mentioned in the history of present illness. Exam Constitutional appears tremulous, actively vomiting, triage nursing summary reviewed, vital signs reviewed, awake/alert. Eyes normal conjunctivae and sclera, EOMI, PERRLA. HENT normal inspection, atraumatic, moist mucus membranes, no epistaxis, neck supple/ no meningismus, no raccoon eyes. Respiratory clear to auscultation bilaterally, normal breath sounds, no respiratory distress, no wheezing. Cardiovascular rate normal, regular rhythm, no murmur, no edema, distal pulses normal. Gastrointestinal soft, non-tender, no rebound, no guarding, normal bowel sounds, no distension, no pulsatile mass. Genitourinary no CVA tenderness. Musculoskeletal no midline vertebral tenderness, full range of motion, no calf swelling, no tenderness of extremities, no meningismus, good pulses, neurovascularly intact. Skin pink, warm, & dry, no rash, skin atraumatic. Neurologic awake, alert and oriented x 3, AAOx3, moves all 4 extremities equally, motor intact, sensory intact, CN II-XII intact, normal cerebellar, normal vision, normal speech. Tremulous. Psychiatric normal mood/affect. Heme/Lymph/Immune no lymphadenopathy. Differential Diagnosis: Includes but is not limited to in a particular order acute alcohol withdrawal, dehydration, electrolyte deficiency, vitamin deficiency, rib fractures, rib contusions, pneumothorax, pneumo/hemothorax. Medical Decision Making: Plan for this patient IV establishment 2 mg IV Ativan , thiamine and folate, IV hydration with normal saline, check basic blood work, chest x-ray two view to rule out rib fractures or pneumothorax. Re-evaluate. Re-evaluation: ED x-ray chest two view: Negative for acute cardiopulmonary disease specifically no evidence of pneumothorax or rib fractures. Image interpreted by myself. [id number]: This patient is feeling much better after IV fluids additionally 2 mg IV Ativan. Additionally she had thiamine and folate. She received IV fluids she is not vomiting she feels much better. Her tremors have resolved. Heart rate is improved. She is requesting discharge. I encouraged her strongly to stop drinking alcohol. I did offer her to go to detox however she has declined she would like to go home. Additionally she understands return emergency room she has develops worsening symptoms includes vomiting, shakiness, chest pain or shortness of breath. Given that she had 2 mg IV Ativan I asked her to take a cab home she did drive here initially but I do not want her driving home after the Ativan. She is not sleepy however I feel more comfortable with her going home by cab. She ambulated well throughout the emergency room. She is clinically stable answer my questions appropriately and agrees for discharge planning return precautions given. She understands Source: Patient - Personal History Current Tetanus/Diphtheria Vaccine: Yes Tetanus Vaccine Date: 2014 - Medical/Surgical History Hx Asthma: No Hx Chronic Respiratory Disease: No Hx Diabetes: No Hx Cardiac Disease: Yes Hx Renal Disease: No Hx Cirrhosis: No Hx Alcoholism: Yes Hx HIV/AIDS: No Hx Splenectomy or Spleen Trauma: No Other PMH: PMHx: Alcoholism, degenerative disc disease, osteoarthritis, scoliosis, heart murmur, a-fib, C difficile-Dec 2015, hx withdrawal, pancreatitis. PSHx: tonsillectomy - Social History Smoking Status: Never smoked Constitutional: Initial Vital Signs Temperature (C) 36.6 C 03/11/17 21:52 Heart Rate 116 H 03/11/17 21:52 Respiratory Rate 14 03/11/17 21:52 Blood Pressure 141/99 H 03/11/17 21:52 O2 Sat (%) 99 03/11/17 21:52 O2 Delivery Mode Room Air Allergies/Adverse Reactions: Sulfa (Sulfonamide Antibiotics) Allergy (Mild, Verified 02/28/17 18:43) Rash Home Medications: Medication Instructions Recorded Diltiazem Xr [Dilacor Xr] 240 mg PO DAILY #30 cap 04/24/16 Herbals/Supplements -Info Only 1 ea PO DAILY 09/22/16 Promethazine HCl [Phenergan 25mg 25 mg PO DAILY PRN 02/28/17 (*)] Sertraline HCl [Zoloft 50mg (*)] 75 mg PO DAILY 02/28/17 Ondansetron HCl [Zofran] 4 mg PO DAILY PRN 03/01/17 Famotidine [Pepcid 20 MG (*)] 20 mg PO DAILY tab 03/02/17 LORazepam [Ativan (*)] 1 mg PO Q4HRS PRN #20 tab 03/02/17 Levothyroxine [Synthroid 112 mcg 112 mcg PO DAILY AT 6AM #30 tab 03/02/17 (*)] Lidocaine 5% [Lidoderm 5% Patch 1 ea TD DAILY #14 patch 03/02/17 (*)] oxyCODONE IR [Oxycodone Ir (*)] 5 - 10 mg PO Q3HRS PRN #10 tab 03/02/17 Medical Decision Making - Diagnostics Imaging Results: Imaging Impressions Chest X-Ray 03/11/17 22:02 Impression: No acute abnormality identified. - Data Points Laboratory Results: Laboratory Results 03/11/17 22:30 03/11/17 22:30 03/11/17 03/11/17 22:30 22:30 WBC 4.58 10^3/uL 10^3/uL (3.80-9.50) RBC 3.44 10^6/uL L 10^6/uL (4.18-5.33) Hgb 12.9 g/dL g/dL (12.6-16.3) Hct 37.9 % L % (38.0-47.0) MCV 110.2 fL H fL (81.5-99.8) MCH 37.5 pg H pg (27.9-34.1) MCHC 34.0 g/dL g/dL (32.4-36.7) RDW 13.2 % % (11.5-15.2) Plt Count 207 10^3/uL 10^3/uL (150-400) MPV 9.7 fL fL (8.7-11.7) Neut % (Auto) 86.3 % H % (39.3-74.2) Lymph % (Auto) 7.4 % L % (15.0-45.0) Haakon % (Auto) 5.2 % % (4.5-13.0) Eos % (Auto) 0.0 % L % (0.6-7.6) Baso % (Auto) 0.7 % % (0.3-1.7) Nucleat RBC Rel Count 0.0 % % (0.0-0.2) Absolute Neuts (auto) 3.95 10^3/uL 10^3/uL (1.70-6.50) Absolute Lymphs (auto) 0.34 10^3/uL L 10^3/uL (1.00-3.00) Absolute Monos (auto) 0.24 10^3/uL L 10^3/uL (0.30-0.80) Absolute Eos (auto) 0.00 10^3/uL L 10^3/uL (0.03-0.40) Absolute Basos (auto) 0.03 10^3/uL 10^3/uL (0.02-0.10) Absolute Nucleated RBC 0.00 10^3/uL 10^3/uL (0-0.01) Immature Gran % 0.4 % % (0.0-1.1) Immature Gran # 0.02 10^3/uL 10^3/uL (0.00-0.10) Sodium 140 mEq/L mEq/L (134-144) Potassium 4.3 mEq/L mEq/L (3.5-5.2) Chloride 104 mEq/L mEq/L (97-110) Carbon Dioxide 13 mEq/l L mEq/l (22-31) Anion Gap 23 mEq/L H mEq/L (8-16) BUN 6 mg/dL L mg/dL (7-23) Creatinine 0.7 mg/dL mg/dL (0.6-1.0) Estimated GFR > 60 Glucose 84 mg/dL mg/dL (70-100) Calcium 8.6 mg/dL mg/dL (8.5-10.4) Total Bilirubin 3.3 mg/dL H mg/dL (0.1-1.4) Conjugated Bilirubin 2.0 mg/dL H mg/dL (0.0-0.5) Unconjugated Bilirubin 1.3 mg/dL H mg/dL (0.0-1.1) AST 231 IU/L H IU/L (14-46) ALT 100 IU/L H IU/L (9-52) Alkaline Phosphatase 320 IU/L H IU/L (38-126) Total Protein 5.7 g/dL L g/dL (6.3-8.2) Albumin 3.5 g/dL g/dL (3.5-5.0) Lipase 140 IU/L IU/L (23-300) Ethyl Alcohol 40 mg/dL H mg/dL (0-10) Medications Given: Discontinued Medications Folic Acid (Folic Acid) 1 mg PO EDNOW ONE Stop: 03/11/17 22:02 Last Admin: 03/11/17 22:46 Dose: 1 mg Sodium Chloride (Ns) 1,000 mls @ 0 mls/hr IV EDNOW ONE; Wide Open PRN Reason: Protocol Stop: 03/11/17 22:01 Last Admin: 03/11/17 22:34 Dose: 1,000 mls Thiamine HCl 500 mg/ Sodium (Chloride) 105 mls @ 210 mls/hr IV ONCE ONE Stop: 03/11/17 22:30 Last Admin: 03/11/17 23:10 Dose: 105 mls Ibuprofen (Motrin) 600 mg PO EDNOW ONE Stop: 03/11/17 22:58 Last Admin: 03/11/17 22:59 Dose: 600 mg Lorazepam (Ativan Injection) 2 mg IVP ONCE ONE Stop: 03/11/17 22:02 Last Admin: 03/11/17 22:33 Dose: 2 mg Thiamine HCl (Vitamin B-1) 100 mg PO EDNOW ONE Stop: 03/11/17 22:02 Last Admin: 03/11/17 22:46 Dose: 100 mg Departure - Departure Disposition: Home, Routine, Self-Care Clinical Impression: Alcohol withdrawal Qualifiers: Complication of substance-induced condition: uncomplicated Qualified Code(s): F10.230 - Alcohol dependence with withdrawal, uncomplicated Condition: Good Instructions: Alcohol Withdrawal (ED), Acute Nausea and Vomiting (ED) Additional Instructions: 1.Refrain from drinking alcohol. 2. Return emergency room if develops worsening symptoms includes vomiting, abdominal pain or not feeling well. Referrals: NONE *PRIMARY CARE P,. [Primary Care Provider] - As per Instructions
[2017-03-11] MEDS ORDERED: NS 1,000 ML IV ONE (22:00)
[2017-03-11] MEDS ORDERED: THIAMINE HCL 100 MG TAB PO ONE (22:01)
[2017-03-11] MEDS ORDERED: FOLIC ACID 1 MG TAB PO ONE (22:01)
[2017-03-11] MEDS ORDERED: THIAMINE HCL 500 MG in NS 100 ML IV ONE (22:01)
[2017-03-11] MEDS ORDERED: LORazepam 2 MG/ML INJ IVP ONE (22:01)
[2017-03-11 22:34] LABS: % IMMATURE GRANULYOCYTES 0.4 % (0.0-1.1); ABSOLUTE IMMATURE GRANULOCYTES 0.02 10^3/uL (0.00-0.10); ADD DIFF? NO; ADD MORPH? NO; ADD SCAN? NO; ATYPICAL LYMPHOCYTE FLAG 0 (0-99); FRAGMENT RBC FLAG 0 (0-99); HEMATOCRIT 37.9 % (38.0-47.0); HEMOGLOBIN 12.9 g/dL (12.6-16.3); LEFT SHIFT FLG 0 (0-99); LIPEMIA HEMOLYSIS FLAG 90 (0-99); MEAN CELL HEMOGLOBIN 37.5 pg (27.9-34.1); MEAN CELL VOLUME 110.2 fL (81.5-99.8); MEAN PLATELET VOLUME 9.7 fL (8.7-11.7); PLATELET CLUMPS FLAG 20 (0-99); PLATELET COUNT 207 10^3/uL (150-400); RED BLOOD CELL COUNT 3.44 10^6/uL (4.18-5.33); RED CELL DISTRIBUTION WIDTH 13.2 % (11.5-15.2)
[2017-03-11 22:50] LABS: ALANINE AMINOTRANSFERASE 100 IU/L (9-52); ALBUMIN 3.5 g/dL (3.5-5.0); ALKALINE PHOSPHATASE 320 IU/L (38-126); ANION GAP 23 mEq/L (8-16); ASPARTATE AMINOTRANSFERASE 231 IU/L (14-46); BILIRUBIN,TOTAL 3.3 mg/dL (0.1-1.4); BILIRUBIN-UNCONJUGATED 1.3 mg/dL (0.0-1.1); CALCIUM 8.6 mg/dL (8.5-10.4); CARBON DIOXIDE 13 mEq/l (22-31); CHLORIDE 104 mEq/L (97-110); CREATININE 0.7 mg/dL (0.6-1.0); ETHANOL SERUM 40 mg/dL (0-10); GLOMERULAR FILTRATION RATE > 60; GLUCOSE 84 mg/dL (70-100); POTASSIUM 4.3 mEq/L (3.5-5.2); SODIUM 140 mEq/L (134-144); TOTAL PROTEIN 5.7 g/dL (6.3-8.2)
[2017-03-11] MEDS ORDERED: IBUPROFEN 600 MG TAB PO ONE (22:57)
[2017-03-11 23:59] VITALS: BP 138/69; PULSE 105; RESP 16; TEMP 98.8; O2SAT 97
== END 2017-03-12 | disposition home or self-care (01) ==
DX: F10.230 Alcohol dependence with withdrawal, uncomplicated (principal); E86.9 Volume depletion, unspecified; W18.30XA Fall on same level, unspecified, initial encounter
CPT/HCPCS: 96365; G0480; J2060; J3411

== ENCOUNTER 2017-03-20 17:55 | Emergency (ER) | payer MEDICAID ==
--- NOTE | 2017-03-20 18:04 | EDPHY ---
H & P Stated Complaint: CP since early AM. States may be in withdrawl. Time Seen by Provider: 03/20/17 18:03 - Personal History Current Tetanus/Diphtheria Vaccine: Yes Current Tetanus Diphtheria and Acellular Pertussis (TDAP): Yes Tetanus Vaccine Date: 2014 - Medical/Surgical History Hx Asthma: No Hx Chronic Respiratory Disease: No Hx Diabetes: No Hx Cardiac Disease: Yes Hx Renal Disease: No Hx Cirrhosis: No Hx Alcoholism: Yes Hx HIV/AIDS: No Hx Splenectomy or Spleen Trauma: No Other PMH: PMHx: Alcoholism, degenerative disc disease, osteoarthritis, scoliosis, heart murmur, a-fib, C difficile-Dec 2015, hx withdrawal, pancreatitis. PSHx: tonsillectomy - Social History Smoking Status: Never smoked Constitutional: Initial Vital Signs Temperature (C) 36.7 C 03/20/17 17:58 Heart Rate 113 H 03/20/17 17:58 Respiratory Rate 15 03/20/17 17:58 Blood Pressure 141/98 H 03/20/17 17:58 O2 Sat (%) 96 03/20/17 17:58 O2 Delivery Mode Room Air Allergies/Adverse Reactions: Sulfa (Sulfonamide Antibiotics) Allergy (Mild, Verified 03/20/17 17:58) Rash Home Medications: Medication Instructions Recorded Diltiazem Xr [Dilacor Xr] 240 mg PO DAILY #30 cap 04/24/16 Herbals/Supplements -Info Only 1 ea PO DAILY 09/22/16 Promethazine HCl [Phenergan 25mg 25 mg PO DAILY PRN 02/28/17 (*)] Sertraline HCl [Zoloft 50mg (*)] 75 mg PO DAILY 02/28/17 Ondansetron HCl [Zofran] 4 mg PO DAILY PRN 03/01/17 Famotidine [Pepcid 20 MG (*)] 20 mg PO DAILY tab 03/02/17 LORazepam [Ativan (*)] 1 mg PO Q4HRS PRN #20 tab 03/02/17 Levothyroxine [Synthroid 112 mcg 112 mcg PO DAILY AT 6AM #30 tab 03/02/17 (*)] Lidocaine 5% [Lidoderm 5% Patch 1 ea TD DAILY #14 patch 03/02/17 (*)] oxyCODONE IR [Oxycodone Ir (*)] 5 - 10 mg PO Q3HRS PRN #10 tab 03/02/17 Medical Decision Making ED Course/Re-evaluation: CHIEF COMPLAINT: "I've been vomiting since 6 this morning. It's alcohol- related." HISTORY OF PRESENT ILLNESS: The patient is a 61 y/o female with 28 prior ED visits this year who is complaining of recurrent non-bloody vomiting onset today. She has a history of alcoholism and pancreatitis and drinks daily. Her last alcohol intake was this morning at 09:00, about 9 hours ago. She began vomiting later in the morning and then developed associated mild epigastric pain. She attributes her symptoms to alcohol use and denies any new symptoms from prior similar evaluations. No fever, diarrhea, cough. REVIEW OF SYSTEMS: A 10 point review of systems was performed and is negative with the exception of the elements mentioned in the history of present illness. PHYSICAL EXAM: HR, BP, O2 Sat, RR. Temp noted General Appearance: Alert, well hydrated, appropriate, and non-toxic appearing. Head: Atraumatic without scalp tenderness or obvious injury Eyes: Pupils equal, round, reactive to light and accommodation, EOMI, no trauma , no injection. Nose: Atraumatic, no rhinorrhea, clear. Throat: Mucus membranes moist. Neck: Supple, nontender, no lymphadenopathy. Respiratory: No retractions, no distress, no wheezes, and no accessory muscle use. Lungs are clear to auscultation bilaterally. Cardiovascular: Mildly tachycardic rate and rhythm, no murmurs, rubs, or gallops. Good capillary refill all extremities. Gastrointestinal: Abdomen is soft, mild epigastric tenderness, non-distended, no masses, no rebound, no guarding, no peritoneal signs. Musculoskeletal: Normal active ROM of all extremities, atraumatic. Neurological: Alert, appropriate, and interactive. The patient has non-focal cranial nerves, motor, sensory, and cerebellar exam. Skin: No rashes, good turgor, no nodules on palpation. Past medical history: Atrial fibrillation, pancreatitis, alcohol abuse Past surgical history: Noncontributory Family history: Noncontributory Social history: Lives in [place], alcohol abuse Prior medical records reviewed including ED visit 03/11/17 for alcohol withdrawal. DIAGNOSTICS/PROCEDURES/CRITICAL CARE TIME: The 12 lead EKG was interpreted by myself. Sinus tachycardia rate 104. See hard copy and/or "tracemaster" electronic copy for interpretation. DIFFERENTIAL DIAGNOSIS: The differential diagnosis for the patient's nausea and vomiting included but was not limited to gastroenteritis, gastritis, appendicitis, and medication side effect. MEDICAL DECISION MAKING: This is a 61 y/o female with a history of alcoholism and pancreatitis who presents with a 9-hour history of vomiting after drinking alcohol this morning. She has mild epigastric tenderness and tachycardia on exam. Her symptoms are consistent with alcoholic gastritis and perhaps early alcohol withdrawal. I have low suspicion for infectious cause of her symptoms. Plan for IV, labs, EKG , and symptom management. 1L IV NS, 4mg IV Zofran, and 40mg IV Pepcid administered. - Data Points Laboratory Results: Laboratory Results 03/20/17 18:50 03/20/17 18:50 03/20/17 03/20/17 03/20/17 18:50 18:50 18:50 WBC 2.64 10^3/uL L 10^3/uL (3.80-9.50) RBC 3.11 10^6/uL L 10^6/uL (4.18-5.33) Hgb 11.5 g/dL L g/dL (12.6-16.3) Hct 34.0 % L % (38.0-47.0) MCV 109.3 fL H fL (81.5-99.8) MCH 37.0 pg H pg (27.9-34.1) MCHC 33.8 g/dL g/dL (32.4-36.7) RDW 13.0 % % (11.5-15.2) Plt Count 88 10^3/uL L 10^3/uL (150-400) MPV 9.9 fL fL (8.7-11.7) Neut % (Auto) 71.3 % % (39.3-74.2) Lymph % (Auto) 17.0 % % (15.0-45.0) Parker % (Auto) 10.2 % % (4.5-13.0) Eos % (Auto) 0.0 % L % (0.6-7.6) Baso % (Auto) 1.1 % % (0.3-1.7) Nucleat RBC Rel Count 0.0 % % (0.0-0.2) Absolute Neuts (auto) 1.88 10^3/uL 10^3/uL (1.70-6.50) Absolute Lymphs (auto) 0.45 10^3/uL L 10^3/uL (1.00-3.00) Absolute Monos (auto) 0.27 10^3/uL L 10^3/uL (0.30-0.80) Absolute Eos (auto) 0.00 10^3/uL L 10^3/uL (0.03-0.40) Absolute Basos (auto) 0.03 10^3/uL 10^3/uL (0.02-0.10) Absolute Nucleated RBC 0.00 10^3/uL 10^3/uL (0-0.01) Immature Gran % 0.4 % % (0.0-1.1) Immature Gran # 0.01 10^3/uL 10^3/uL (0.00-0.10) PT 15.5 SEC H SEC (12.0-15.0) INR 1.23 H (0.83-1.16) APTT 32.5 SEC SEC (23.0-38.0) Sodium 135 mEq/L mEq/L (134-144) Potassium 4.0 mEq/L mEq/L (3.5-5.2) Chloride 101 mEq/L mEq/L (97-110) Carbon Dioxide 17 mEq/l L mEq/l (22-31) Anion Gap 17 mEq/L H mEq/L (8-16) BUN 4 mg/dL L mg/dL (7-23) Creatinine 0.6 mg/dL mg/dL (0.6-1.0) Estimated GFR > 60 Glucose 71 mg/dL mg/dL (70-100) Calcium 8.0 mg/dL L mg/dL (8.5-10.4) Total Bilirubin 3.0 mg/dL H mg/dL (0.1-1.4) Conjugated Bilirubin 1.8 mg/dL H mg/dL (0.0-0.5) Unconjugated Bilirubin 1.2 mg/dL H mg/dL (0.0-1.1) AST 189 IU/L H IU/L (14-46) ALT 72 IU/L H IU/L (9-52) Alkaline Phosphatase 288 IU/L H IU/L (38-126) Total Protein 4.8 g/dL L g/dL (6.3-8.2) Albumin 2.6 g/dL L g/dL (3.5-5.0) Lipase 181 IU/L IU/L (23-300) Medications Given: Discontinued Medications Famotidine (Pepcid) 40 mg IVP EDNOW ONE Stop: 03/20/17 18:12 Last Admin: 03/20/17 18:29 Dose: 40 mg Sodium Chloride (Ns) 1,000 mls @ 0 mls/hr IV EDNOW ONE; Wide Open PRN Reason: Protocol Stop: 03/20/17 18:12 Last Admin: 03/20/17 18:25 Dose: 1,000 mls Ondansetron HCl (Zofran) 4 mg IVP EDNOW ONE Stop: 03/20/17 18:12 Last Admin: 03/20/17 18:29 Dose: 4 mg Departure - Departure Disposition: Home, Routine, Self-Care Clinical Impression: Alcoholic gastritis Qualifiers: Chronicity: chronic Gastritis bleeding: presence of bleeding unspecified Qualified Code(s): K29.20 - Alcoholic gastritis without bleeding Alcoholic hepatitis Qualifiers: Ascites presence: without ascites Qualified Code(s): K70.10 - Alcoholic hepatitis without ascites Condition: Good Instructions: Gastritis (ED), Abuse of Alcohol (ED) Additional Instructions: Avoid abuse of alcohol. Go to the [facility] if you wish to detox from alcohol. Establish primary care for follow up. Referrals: [facility],. [Clinic] - As per Instructions [facility] 24 Hours [Outside] - As per Instructions Report Scribed for: Otis Tom Report Scribed by: Michelle Irvin Date of Report: 03/20/17 Time of Report: 18:15
--- NOTE | 2017-03-20 18:09 | CPEKG ---
Heart Rate: 104 RR Interval: 577 P-R Interval: 180 QRSD Interval: 66 QT Interval: 356 QTC Interval: 469 P [place]: 60 QRS [place]: 22 T Wave [place]: 58 EKG Severity - BORDERLINE ECG - EKG Impression: SINUS TACHYCARDIA EKG Impression: VENTRICULAR PREMATURE COMPLEX EKG Impression: LOW VOLTAGE THROUGHOUT Electronically Signed By: Calvin Villarreal 21-Mar-2017 07:02:17
[2017-03-20] MEDS ORDERED: NS 1,000 ML IV ONE (18:11)
[2017-03-20] MEDS ORDERED: ONDANSETRON 4 MG/2 ML VIAL IVP ONE (18:11)
[2017-03-20] MEDS ORDERED: FAMOTIDINE 20 MG/2 ML SDV IVP ONE (18:11)
[2017-03-20 19:01] LABS: % IMMATURE GRANULYOCYTES 0.4 % (0.0-1.1); ABSOLUTE IMMATURE GRANULOCYTES 0.01 10^3/uL (0.00-0.10); ADD DIFF? NO; ADD MORPH? NO; ADD SCAN? NO; ATYPICAL LYMPHOCYTE FLAG 0 (0-99); FRAGMENT RBC FLAG 0 (0-99); HEMOGLOBIN 11.5 g/dL (12.6-16.3); LEFT SHIFT FLG 0 (0-99); LIPEMIA HEMOLYSIS FLAG 90 (0-99); MEAN CELL HEMOGLOBIN CONCENTR. 33.8 g/dL (32.4-36.7); MEAN CELL VOLUME 109.3 fL (81.5-99.8); MEAN PLATELET VOLUME 9.9 fL (8.7-11.7); PLATELET CLUMPS FLAG 0 (0-99); PLATELET COUNT 88 10^3/uL (150-400); RED BLOOD CELL COUNT 3.11 10^6/uL (4.18-5.33)
[2017-03-20 19:10] LABS: ALANINE AMINOTRANSFERASE 72 IU/L (9-52); ALBUMIN 2.6 g/dL (3.5-5.0); ALKALINE PHOSPHATASE 288 IU/L (38-126); ANION GAP 17 mEq/L (8-16); ASPARTATE AMINOTRANSFERASE 189 IU/L (14-46); BILIRUBIN-CONJUGATED 1.8 mg/dL (0.0-0.5); BILIRUBIN-UNCONJUGATED 1.2 mg/dL (0.0-1.1); CARBON DIOXIDE 17 mEq/l (22-31); CHLORIDE 101 mEq/L (97-110); CREATININE 0.6 mg/dL (0.6-1.0); GLOMERULAR FILTRATION RATE > 60; GLUCOSE 71 mg/dL (70-100); SODIUM 135 mEq/L (134-144); TOTAL PROTEIN 4.8 g/dL (6.3-8.2)
[2017-03-20 19:12] LABS: INR 1.23 (0.83-1.16); PROTIME(PATIENT) 15.5 SEC (12.0-15.0)
[2017-03-20 19:13] LABS: APTT 32.5 SEC (23.0-38.0)
[2017-03-20] MEDS ORDERED: PROMETHAZINE HCL 25 MG/ML INJ ONE (19:18)
[2017-03-20] MEDS ORDERED: PROMETHAZINE HCL 25 MG/ML INJ IVP ONE (19:21)
[2017-03-20 20:58] VITALS: BP 132/94; PULSE 96; RESP 92; TEMP 98.6; O2SAT 16
[2017-03-20] MEDS ORDERED: ONDANSETRON 4MG PREPACK#2 BTL TAKEHOME ONE ×2 (21:10→21:11)
[2017-03-20] MEDS ORDERED: ONDANSETRON DISINTEGRATING 4 MG TAB PO ONE (21:10)
[2017-03-20] MEDS ORDERED: ONDANSETRON DISINTEGRATING 4 MG TAB ONE (21:11)
== END 2017-03-20 20:57 | disposition home or self-care (01) ==
DX: K29.20 Alcoholic gastritis without bleeding (principal); K70.10 Alcoholic hepatitis without ascites; E86.9 Volume depletion, unspecified
CPT/HCPCS: 96374; J2405; J2550

== ENCOUNTER 2017-03-27 02:08 | Emergency (ER) | payer MEDICAID ==
[2017-03-27 02:31] VITALS: RESP 18
[2017-03-27] MEDS ORDERED: ONDANSETRON 4 MG/2 ML VIAL IVP ONE ×2 (03:22→04:51)
[2017-03-27] MEDS ORDERED: NS 1,000 ML IV ONE ×2 (03:22)
[2017-03-27] MEDS ORDERED: FAMOTIDINE 20 MG/NACL 50 ML IV ONE (03:22)
[2017-03-27] MEDS ORDERED: ACETAMINOPHEN 500 MG TAB PO ONE (03:52)
[2017-03-27 03:56] LABS: % IMMATURE GRANULYOCYTES 0.3 % (0.0-1.1); ABSOLUTE IMMATURE GRANULOCYTES 0.01 10^3/uL (0.00-0.10); ADD DIFF? NO; ADD MORPH? NO; ADD SCAN? NO; ATYPICAL LYMPHOCYTE FLAG 0 (0-99); FRAGMENT RBC FLAG 0 (0-99); HEMATOCRIT 35.5 % (38.0-47.0); HEMOGLOBIN 11.9 g/dL (12.6-16.3); LEFT SHIFT FLG 0 (0-99); LIPEMIA HEMOLYSIS FLAG 80 (0-99); MEAN CELL HEMOGLOBIN 36.1 pg (27.9-34.1); MEAN CELL HEMOGLOBIN CONCENTR. 33.5 g/dL (32.4-36.7); MEAN CELL VOLUME 107.6 fL (81.5-99.8); MEAN PLATELET VOLUME 10.9 fL (8.7-11.7); PLATELET CLUMPS FLAG 0 (0-99); PLATELET COUNT 69 10^3/uL (150-400); RED CELL DISTRIBUTION WIDTH 13.3 % (11.5-15.2)
[2017-03-27 04:14] LABS: ALANINE AMINOTRANSFERASE 74 IU/L (9-52); ALBUMIN 2.5 g/dL (3.5-5.0); ALKALINE PHOSPHATASE 351 IU/L (38-126); ANION GAP 10 mEq/L (8-16); ASPARTATE AMINOTRANSFERASE 165 IU/L (14-46); BILIRUBIN-CONJUGATED 1.9 mg/dL (0.0-0.5); BILIRUBIN-UNCONJUGATED 1.1 mg/dL (0.0-1.1); CALCIUM 7.7 mg/dL (8.5-10.4); CARBON DIOXIDE 25 mEq/l (22-31); CHLORIDE 101 mEq/L (97-110); CREATININE 0.6 mg/dL (0.6-1.0); GLOMERULAR FILTRATION RATE > 60; GLUCOSE 73 mg/dL (70-100); POTASSIUM 3.8 mEq/L (3.5-5.2); SODIUM 136 mEq/L (134-144); TOTAL PROTEIN 4.5 g/dL (6.3-8.2)
[2017-03-27] MEDS ORDERED: ONDANSETRON 4 MG/2 ML VIAL ONE (04:50)
[2017-03-27] MEDS ORDERED: LORazepam 2 MG/ML INJ IVP ONE (04:58)
--- NOTE | 2017-03-27 05:16 | EDPHY ---
H & P Stated Complaint: nausea vomiting abd pain Time Seen by Provider: 03/27/17 03:21 HPI/ROS: HPI The patient presents with nausea, vomiting which have been present for the last 14 hours. She has been unable to take anything by mouth. She has had multiple episodes of nonbloody nonbilious emesis. Her last drink of alcohol was at noon yesterday and she has a history of chronic alcohol abuse. She is complaining of epigastric abdominal pain which is achy in nature and similar to her prior pain. The patient has been seen multiple times in the emergency department with similar presentation. Longstanding history of alcohol abuse with alcohol withdrawal symptoms and nausea and vomiting. REVIEW OF SYSTEMS Constitutional: No fever, no chills. Eyes: No discharge. ENT: No sore throat. Cardiovascular: No chest pain, no palpitations. Respiratory: No cough, no shortness of breath. Gastrointestinal: See HPI Genitourinary: No hematuria. Musculoskeletal: No back pain. Skin: No rashes. Neurological: No headache. PMHx: Chronic alcohol abuse with history of alcohol withdrawal, history of atrial fibrillation with RVR Soc Hx: Lives at home, alcohol abuse as above PHYSICAL General Appearance: Alert, no distress Eyes: Pupils equal and round no pallor or injection ENT, Mouth: Mucous membranes dry Respiratory: There are no retractions, lungs are clear to auscultation Cardiovascular: Regular rate and rhythm Gastrointestinal: Abdomen is soft and non-tender, no masses, bowel sounds normal Neurological: A&O, moves all extremities Skin: Warm and dry, no rashes Musculoskeletal: Neck is supple non tender Extremities: symmetrical, full range of motion Psychiatric: Patient is oriented X 3, there is no agitation Source: Patient Exam Limitations: No limitations - Personal History Tetanus Vaccine Date: 2014 - Medical/Surgical History Hx Asthma: No Hx Chronic Respiratory Disease: No Hx Diabetes: No Hx Cardiac Disease: Yes Hx Renal Disease: No Hx Cirrhosis: No Hx Alcoholism: Yes Hx HIV/AIDS: No Hx Splenectomy or Spleen Trauma: No Other PMH: PMHx: Alcoholism, degenerative disc disease, osteoarthritis, scoliosis, heart murmur, a-fib, C difficile-Dec 2015, hx withdrawal, pancreatitis. PSHx: tonsillectomy - Social History Smoking Status: Never smoked Constitutional: Initial Vital Signs Temperature (C) 36.7 C 03/27/17 02:28 Heart Rate 99 03/27/17 02:28 Respiratory Rate 18 03/27/17 02:28 Blood Pressure 168/105 H 03/27/17 02:28 O2 Sat (%) 89 L 03/27/17 02:28 O2 Delivery Mode Room Air O2 (L/minute) 2 Allergies/Adverse Reactions: Sulfa (Sulfonamide Antibiotics) Allergy (Mild, Verified 03/20/17 17:58) Rash Home Medications: Medication Instructions Recorded Diltiazem Xr [Dilacor Xr] 240 mg PO DAILY #30 cap 04/24/16 Herbals/Supplements -Info Only 1 ea PO DAILY 09/22/16 Sertraline HCl [Zoloft 50mg (*)] 75 mg PO DAILY 02/28/17 Levothyroxine [Synthroid 112 mcg 112 mcg PO DAILY AT 6AM #30 tab 03/02/17 (*)] Medical Decision Making Differential Diagnosis: 61-year-old female with history of alcohol abuse presents with nausea and vomiting for the last 14 hours in the setting of stopping alcohol. She has associated abdominal pain. On exam, vital signs are normal, abdominal exam is benign, mucous membranes are dry. Differential diagnosis includes alcohol withdrawal, alcoholic gastritis, pancreatitis, less likely intra-abdominal infection. In the emergency department, patient was given 2 L of IV fluid for presumed volume depletion, antiemetics with improvement in her symptoms. Labs were checked and did reveal transaminitis though similar to prior is result. She was given Ativan for alcohol withdrawal symptoms she was having and was discharged from the emergency department. She does have lower extremity edema which has been present on previous exams, though somewhat worse today. This could be related to underlying CHF related atrial fibrillation alcohol use. I have explained that she needs to follow up with a primary care physician. She has told me that her regular physician has fired her and I have explained that she will need to seek care given that there are no signs of overt CHF currently, she is able to lie flat, she has no shortness of breath, there is no need for further ER evaluation. - Data Points Laboratory Results: Laboratory Results 03/27/17 03:30 03/27/17 03:30 03/27/17 03/27/17 03/27/17 04:40 03:30 03:30 WBC 3.25 10^3/uL L 10^3/uL (3.80-9.50) RBC 3.30 10^6/uL L 10^6/uL (4.18-5.33) Hgb 11.9 g/dL L g/dL (12.6-16.3) Hct 35.5 % L % (38.0-47.0) MCV 107.6 fL H fL (81.5-99.8) MCH 36.1 pg H pg (27.9-34.1) MCHC 33.5 g/dL g/dL (32.4-36.7) RDW 13.3 % % (11.5-15.2) Plt Count 69 10^3/uL L 10^3/uL (150-400) MPV 10.9 fL fL (8.7-11.7) Neut % (Auto) 76.3 % H % (39.3-74.2) Lymph % (Auto) 14.2 % L % (15.0-45.0) [place] % (Auto) 8.3 % % (4.5-13.0) Eos % (Auto) 0.3 % L % (0.6-7.6) Baso % (Auto) 0.6 % % (0.3-1.7) Nucleat RBC Rel Count 0.0 % % (0.0-0.2) Absolute Neuts (auto) 2.48 10^3/uL 10^3/uL (1.70-6.50) Absolute Lymphs (auto) 0.46 10^3/uL L 10^3/uL (1.00-3.00) Absolute Monos (auto) 0.27 10^3/uL L 10^3/uL (0.30-0.80) Absolute Eos (auto) 0.01 10^3/uL L 10^3/uL (0.03-0.40) Absolute Basos (auto) 0.02 10^3/uL 10^3/uL (0.02-0.10) Absolute Nucleated RBC 0.00 10^3/uL 10^3/uL (0-0.01) Immature Gran % 0.3 % % (0.0-1.1) Immature Gran # 0.01 10^3/uL 10^3/uL (0.00-0.10) Sodium 136 mEq/L mEq/L (134-144) Potassium 3.8 mEq/L mEq/L (3.5-5.2) Chloride 101 mEq/L mEq/L (97-110) Carbon Dioxide 25 mEq/l mEq/l (22-31) Anion Gap 10 mEq/L mEq/L (8-16) BUN 7 mg/dL mg/dL (7-23) Creatinine 0.6 mg/dL mg/dL (0.6-1.0) Estimated GFR > 60 Glucose 73 mg/dL mg/dL (70-100) Calcium 7.7 mg/dL L mg/dL (8.5-10.4) Total Bilirubin 3.0 mg/dL H mg/dL (0.1-1.4) Conjugated Bilirubin 1.9 mg/dL H mg/dL (0.0-0.5) Unconjugated Bilirubin 1.1 mg/dL mg/dL (0.0-1.1) AST 165 IU/L H IU/L (14-46) ALT 74 IU/L H IU/L (9-52) Alkaline Phosphatase 351 IU/L H IU/L (38-126) Total Protein 4.5 g/dL L g/dL (6.3-8.2) Albumin 2.5 g/dL L g/dL (3.5-5.0) Lipase 116 IU/L IU/L (23-300) Urine Color Pending Urine Appearance Pending Urine pH Pending Ur Specific [place] Pending Urine Protein Pending Urine Ketones Pending Urine Blood Pending Urine Nitrate Pending Urine Bilirubin Pending Urine Urobilinogen Pending Ur Leukocyte Esterase Pending Urine Glucose Pending Medications Given: Discontinued Medications Acetaminophen (Tylenol) 1,000 mg PO EDNOW ONE Stop: 03/27/17 03:53 Last Admin: 03/27/17 04:51 Dose: 1,000 mg Sodium Chloride (Ns) 1,000 mls @ 0 mls/hr IV EDNOW ONE; Wide Open PRN Reason: Protocol Stop: 03/27/17 03:23 Last Admin: 03/27/17 03:27 Dose: 1,000 mls Sodium Chloride (Ns) 1,000 mls @ 0 mls/hr IV EDNOW ONE; Wide Open PRN Reason: Protocol Stop: 03/27/17 03:23 Last Admin: 03/27/17 03:31 Dose: 1,000 mls Famotidine/Sodium Chloride (Pepcid 20 Mg (Premix)) 50 mls @ 200 mls/hr IV EDNOW ONE Stop: 03/27/17 03:36 Last Admin: 03/27/17 03:30 Dose: 50 mls Lorazepam (Ativan Injection) 1 mg IVP EDNOW ONE Stop: 03/27/17 04:59 Last Admin: 03/27/17 05:15 Dose: 1 mg Ondansetron HCl (Zofran) 4 mg IVP EDNOW ONE Stop: 03/27/17 03:23 Last Admin: 03/27/17 03:31 Dose: 4 mg Ondansetron HCl (Zofran) 4 mg IVP EDNOW ONE Stop: 03/27/17 04:52 Last Admin: 03/27/17 04:52 Dose: 4 mg Departure - Departure Disposition: Home, Routine, Self-Care Clinical Impression: Epigastric abdominal pain Alcohol withdrawal Qualifiers: Complication of substance-induced condition: uncomplicated Qualified Code(s): F10.230 - Alcohol dependence with withdrawal, uncomplicated Nausea & vomiting Qualifiers: Vomiting type: unspecified Vomiting Intractability: non-intractable Qualified Code(s): R11.2 - Nausea with vomiting, unspecified Condition: Fair Instructions: Abuse of Alcohol (ED), Acute Nausea and Vomiting (ED) Referrals: NONE *PRIMARY CARE P,. [Primary Care Provider] - As per Instructions
[2017-03-27 06:08] LABS: COLOR AMBER; LEUKOCYTE ESTERASE,URINE TRACE (NEGATIVE); NITRITE,URINE NEGATIVE (NEGATIVE)
[2017-03-27 06:16] LABS: MUCUS TRACE /lpf (NONE-1+)
[2017-03-27 06:20] LABS: RBC,URINE NONE SEEN /hpf (0-3)
[2017-03-27 06:24] VITALS: BP 137/109; PULSE 94; TEMP 98.4; O2SAT 92
== END 2017-03-27 06:23 | disposition home or self-care (01) ==
DX: R11.2 Nausea with vomiting, unspecified (principal); R10.13 Epigastric pain; F10.230 Alcohol dependence with withdrawal, uncomplicated; E86.9 Volume depletion, unspecified
CPT/HCPCS: 96365; J2060; J2405

== ENCOUNTER 2017-03-27 10:30 | Inpatient (IN) | payer MEDICAID ==
--- NOTE | 2017-03-27 10:34 | EDPHY ---
H & P Time Seen by Provider: 03/27/17 10:30 HPI/ROS: CHIEF COMPLAINT: Mechanical fall, right foot and ankle pain HISTORY OF PRESENT ILLNESS: The patient presents to the ED via EMS after she sustained a mechanical fall at home resulting in a injury to her right ankle. The patient has a history of frequent visits to the emergency department primarily surrounding alcohol abuse and withdrawal. She was hospitalized at the beginning of February. She reports that her last drink was 2 days prior to arrival. During the fall today she did not strike her head or lose consciousness. She has no complaints of headache, neck pain, chest pain or difficulty breathing. The patient denies symptoms of alcohol withdrawal currently but reports she did feel tremulous and nauseous last night. The patient reports that she last ate 2 days ago REVIEW OF SYSTEMS: A comprehensive 10 point review of systems is otherwise negative aside from elements mentioned in the history of present illness. Source: Patient Exam Limitations: No limitations - Personal History Tetanus Vaccine Date: 2014 - Medical/Surgical History Hx Asthma: No Hx Chronic Respiratory Disease: No Hx Diabetes: No Hx Cardiac Disease: Yes Hx Renal Disease: No Hx Cirrhosis: No Hx Alcoholism: Yes Hx HIV/AIDS: No Hx Splenectomy or Spleen Trauma: No Other PMH: PMHx: Alcoholism, degenerative disc disease, osteoarthritis, scoliosis, heart murmur, a-fib, C difficile-Dec 2015, hx withdrawal, pancreatitis. PSHx: tonsillectomy - Social History Smoking Status: Never smoked - Physical Exam Exam: General Appearance: Alert, slightly tremulous, mildly obese female, mild distress secondary to pain Eyes: Pupils equal and round no pallor or injection Head: Normocephalic atraumatic Neck: No midline tenderness to palpation ENT, Mouth: Mucous membranes moist Respiratory: There are no retractions, lungs are clear to auscultation Cardiovascular: Regular rate and rhythm Gastrointestinal: Abdomen is soft and nontender, no masses, bowel sounds normal Neurological: A&O, normal motor function, normal sensory exam, normal cranial nerves Skin: Small areas of old extremity ecchymosis Extremities: Tenderness to palpation right ankle with associated soft tissue swelling Constitutional: Initial Vital Signs Temperature (C) 36.9 C 03/27/17 10:40 Heart Rate 95 03/27/17 10:40 Respiratory Rate 16 03/27/17 10:40 Blood Pressure 135/88 H 03/27/17 10:40 O2 Sat (%) 96 11/28/17 10:40 O2 Delivery Mode Room Air Allergies/Adverse Reactions: Sulfa (Sulfonamide Antibiotics) Allergy (Mild, Verified 03/27/17 10:39) Rash Home Medications: Medication Instructions Recorded Diltiazem Xr [Dilacor Xr] 240 mg PO DAILY #30 cap 04/24/16 Herbals/Supplements -Info Only 1 ea PO DAILY 09/22/16 Sertraline HCl [Zoloft 50mg (*)] 75 mg PO DAILY 02/28/17 Ascorbic Acid [Vitamin C 500 mg 1,000 mg PO DAILY 03/27/17 (*)] Aspirin [Aspirin 81mg (*)] 81 mg PO HS 03/27/17 Calcium Carbonate [Oyster Shell 500 mg PO BID 03/27/17 Calcium 500 mg (*)] Gabapentin [Neurontin 100 MG (*)] 100 mg PO HS 03/27/17 Levothyroxine [Synthroid 112 mcg 112 mcg PO DAILY06 03/27/17 (*)] Medical Decision Making - Diagnostics EKG Interpretation: EKG: Complete interpretation has been separately recorded in the [facility] archive. Summary impression: Sinus rhythm, rate 99 Imaging Results: Imaging Impressions Ankle X-Ray 03/27/17 10:44 Impression: Distal tibial and fibular fractures with extensive soft tissue swelling and underlying bone demineralization. Procedures: Procedure: Splint placement. A ortho glass three-way posterior splint was applied to the right lower extremity by the tech. After application of the splint I returned and re- examined the patient. The splint was adequately immobilizing the joint and distal to the splint the patient's circulation and sensation was intact. ED Course/Re-evaluation: Laboratory database reviewed: CBC: Mild anemia with hematocrit of 34, slight leukocytosis and thrombocytopenia noted all consistent with patient's known alcoholic disease PT: Slightly elevated INR of 1.2 Chem 7: Unremarkable ED course: The patient presents to the ED after mechanical fall at home. The patient is a known alcoholic with symptoms of mild alcohol withdrawal upon presentation. The patient's CIWA score is 4. The patient received 1 mg of IV Ativan. She had an IV established. She received IV morphine for pain control. The patient underwent an x-ray of her right ankle which demonstrates a distal tib-fib fracture. Consultation was made with Dr. Donaldo Crabtree who evaluated the patient in the emergency department and plans to take her to the operating room this evening if she is medically cleared. The patient has been kept npo in the ED. Dr. Crabtree has requested a preoperative ankle CT scan. Consultation was made with the hospitalist service. The patient will be admitted by Dr. Gates primarily. I re-evaluated the patient at 12:20 p.m.. She has been placed in ortho glass three-way splint. Differential Diagnosis: Differential diagnosis considered includes ankle fracture, alcohol withdrawal, arrhythmia, metabolic abnormality - Data Points Medications Given: Discontinued Medications Lorazepam (Ativan Injection) 1 mg IVP EDNOW ONE Stop: 03/27/17 10:51 Last Admin: 03/27/17 11:53 Dose: 1 mg Morphine Sulfate (Morphine) 4 mg IVP EDNOW ONE Stop: 03/27/17 10:51 Last Admin: 03/27/17 11:54 Dose: 4 mg Departure - Departure Disposition: [facility] Inpatient Acute Clinical Impression: Alcohol abuse Alcohol withdrawal Qualifiers: Complication of substance-induced condition: uncomplicated Qualified Code(s): F10.230 - Alcohol dependence with withdrawal, uncomplicated Ankle fracture Qualifiers: Encounter type: initial encounter Fracture type: closed Laterality: right Qualified Code(s): S82.891A - Other fracture of right lower leg, initial encounter for closed fracture Condition: Fair
[2017-03-27] MEDS ORDERED: LORazepam 2 MG/ML INJ IVP ONE (10:50)
[2017-03-27 12:00] LABS: % IMMATURE GRANULYOCYTES 0.3 % (0.0-1.1); ABSOLUTE IMMATURE GRANULOCYTES 0.01 10^3/uL (0.00-0.10); ADD DIFF? NO; ADD MORPH? NO; ADD SCAN? NO; ATYPICAL LYMPHOCYTE FLAG 10 (0-99); FRAGMENT RBC FLAG 0 (0-99); LEFT SHIFT FLG 0 (0-99); LIPEMIA HEMOLYSIS FLAG 90 (0-99); MEAN CELL HEMOGLOBIN 36.9 pg (27.9-34.1); MEAN CELL HEMOGLOBIN CONCENTR. 35.3 g/dL (32.4-36.7); MEAN CELL VOLUME 104.6 fL (81.5-99.8); MEAN PLATELET VOLUME 10.2 fL (8.7-11.7); PLATELET CLUMPS FLAG 10 (0-99); PLATELET COUNT 76 10^3/uL (150-400); RED BLOOD CELL COUNT 3.25 10^6/uL (4.18-5.33); RED CELL DISTRIBUTION WIDTH 13.2 % (11.5-15.2)
[2017-03-27 12:10] LABS: INR 1.23 (0.83-1.16); PROTIME(PATIENT) 15.5 SEC (12.0-15.0)
[2017-03-27 12:19] LABS: CALCIUM 8.1 mg/dL (8.5-10.4); CARBON DIOXIDE 25 mEq/l (22-31); CHLORIDE 100 mEq/L (97-110); CREATININE 0.6 mg/dL (0.6-1.0); GLOMERULAR FILTRATION RATE > 60; GLUCOSE 91 mg/dL (70-100); SODIUM 135 mEq/L (134-144)
--- NOTE | 2017-03-27 13:07 | CPEKG ---
Heart Rate: 99 RR Interval: 606 P-R Interval: 188 QRSD Interval: 64 QT Interval: 376 QTC Interval: 483 P [place]: 51 QRS [place]: 13 T Wave [place]: 37 EKG Severity - BORDERLINE ECG - EKG Impression: SINUS RHYTHM EKG Impression: LOW VOLTAGE THROUGHOUT Electronically Signed By: Jose Torres 27-Mar-2017 13:29:50
[2017-03-27 13:11] LABS: ANION GAP 10 mEq/L (8-16); POTASSIUM 4.2 mEq/L (3.5-5.2)
[2017-03-27] MEDS ORDERED: ZOLPIDEM TARTRATE 5 MG TAB PO PRN (13:26)
[2017-03-27] MEDS ORDERED: HYDROmorphONE/DILAUDID 1 MG/ML INJ IVP PRN (13:26)
[2017-03-27] MEDS ORDERED: ONDANSETRON 4 MG/2 ML VIAL IVP PRN ×2 (13:26→19:17)
[2017-03-27] MEDS ORDERED: HYDROmorphone HCL/NS/PF 0.4 MG/2 ML SYR IVP PRN (13:34)
[2017-03-27] MEDS ORDERED: LR 1,000 ML IV ONE (15:22)
--- NOTE | 2017-03-27 15:26 | PDGENHP ---
History and Physical History and Physical: CC: Right Ankle after a fall HISTORY: This pain was walk down a two-step stay away at home today when she caught heal and 1 of the steps ruling her foot and ankle forward anti flexion and then fell over forward on top of her foot and ankle sustaining immediate pain to the right ankle with no other symptoms of any other injury. She presents to the emergency room and is found to have trimalleolar fracture requiring repair pre she was seen by Dr. Crabtree who plans to take her to the operating room later today. She was having any symptoms of acute illness at the time of her fall such as lightheadedness, stroke-like symptoms, dizziness, nausea, chest pain, shortness of breath, fever, etc. However notably this patient to drink alcohol heavily on mostly a daily basis in prolonged binges. She has been drinking for little over a week now and was seen here in the ER 1 week ago and last night with her usual symptoms of nausea vomiting and epigastric discomfort which are all caused by her alcohol intake and typically gutter with abstinence, IV fluids, and acid reducing medications. She was also admitted here on February 28 with the same symptoms and spent 2 days in the hospital for the same symptoms and same treatments. She does have a long history of falls with contusions as well as a broken radius again all due to alcohol. Notably her last drink of alcohol was approximately 50 hours ago ROS: A comprehensive 10 system review revealed no other significant findings PAST MEDICAL HISTORY: Alcoholism Multiple episodes of nausea vomiting and presumed gastritis due to alcohol intake Alcohol pancreatitis Multiple falls related to alcohol intake, with contusions and a real fracture of the arm Impression Hypothyroidism Atrial fibrillation C difficile colitis greater than 1 year ago FAMILY MEDICAL HISTORY: Father age 42 of of injuries Mother in her 50s from esophageal cancer SOCIAL HISTORY: Alcohol use a pt of vodka daily in prolonged binges No street drug use MEDICATIONS: The patients list has been reconciled by our clinical pharmacist in the EMR. I have reviewed the list and ordered appropriate medicines. PHYSICAL EXAMINATION: Vital Signs: Initial vital signs in the ER normal with no fever Crater [place] Packer: Sinus rhythm Examination: General: alert, oriented, good mentation, relaxed, no tumor Skin: warm, dry, good color, no rash HEENT: normal Neck: no mass or jvd Resps: relaxed Lungs: clear breath sounds Heart: regular, no murmur Abdomen: soft, nondistended, nontender, +BS, no mass Upper Extremities: normal Lower Extremities: Mild edema of both legs from the mid calf down to the mid foot, without pitting, and she says this is her baseline edema No Bleeding or bruising Neurologic: normal speech/language, normal alteration manager, no focal weakness IV site: looks normal LABORATORY DATA: Mild macrocytic anemia, thrombocytopenia, and coagulopathy with slight INR elevation are chronic and at her baseline, other labs normal RADIOLOGY STUDIES: I reviewed images of x-ray of her ankle shows trimalleolar fracture with some angulation and placement 12 LEAD EKG: I reviewed today's lead EKG in the ER, as well as numerous other EKGs from the last 12 months. Today's EKG shows sinus rhythm with very low voltages throughout the tracing, which is unchanged from all of her previous EKGs of last year ASSESSMENT: # right trimalleolar ankle fracture after a fall, will require surgical fixation # 50 hours out from her last give alcohol, with some risk of acute alcohol withdrawal, though she has not had much in the way of bed withdrawal past # frequent episodes of nausea vomiting and epigastric pain with normal lipase, all drawn by alcohol but is, her last episode was last night when she was treated in the ER here for the same -currently nausea or abdominal pain and feels hungry # chronic stable anemia, thrombocytopenia, coagulopathy due to her alcohol disease and liver disease; no indication for transfusion or any other interventions at this time but will need to watch these numbers closely during her treatment here # chronic intermittent atrial fibrillation, currently in a sinus rhythm with no left-sided heart failure # chronic stable edema of both legs probably due to combination of nutritional issues, possibly liver disease, would be concerned about possible pulmonary hypertension and right-sided heart failure as well PLANS: -inpatient admission to hospital -patient will go to the OR today with Dr. fontaine and ORIF -DVT prophylaxis -CIWA protocol and manage expect a whole withdrawal as indicated -with check an echocardiogram to determine interact pressures and other cardiac functions, consider starting diuretic therapy in addition to low-salt diet and Pratik stockings for edema -thiamin replacement therapy -physical occupational therapies -may need consideration for [facility] facility rehabilitation I have reviewed the patient's case in detail with Dr. Torres I have reviewed the patient's past medical records as part of this assessment, including previous hospital admission records, including laboratory data, EKGs, medications
[2017-03-27] MEDS ORDERED: LORazepam 1 MG TAB PO ONE (15:36)
--- NOTE | 2017-03-27 16:32 | PDMN ---
Medical Necessity Medical necessity: est los>2mn for R trimalleolar ankle fx, requiring ORIF; comorbid etoh abuse w/ risk of withdrawal, frequent episodes of N/V/ epigastric pain, chronic anemia, intermittent afib, and LE edema; per order and H&P
--- NOTE | 2017-03-27 17:35 | PDANEPAE ---
ANE History of Present Illness Patient presents for tib/fib fixation ANE Past Medical History - Pulmonary History Hx Oxygen in Use at Home: No Hx Sleep Apnea: No - Endocrine History Hx Diabetes: No - Chronic Pain History Chronic Pain: No (back uses ibuprofen) ANE Review of Systems Review of Systems: ANE Patient History - Allergies Allergies/Adverse Reactions: Sulfa (Sulfonamide Antibiotics) Allergy (Mild, Verified 03/27/17 10:39) Rash - Home Medications Home medications: home medication list seen and reviewed Home Medications: Herbals/Supplements -Info Only 1 ea PO DAILY 09/22/16 [Last Taken Unknown] Sertraline HCl [Zoloft 50mg (*)] 75 mg PO DAILY 02/28/17 [Last Taken 03/25/17] Ascorbic Acid [Vitamin C 500 mg (*)] 1,000 mg PO DAILY 03/27/17 [Last Taken Unknown] Aspirin [Aspirin 81mg (*)] 81 mg PO HS 03/27/17 [Last Taken 03/25/17] Calcium Carbonate [Oyster Shell Calcium 500 mg (*)] 500 mg PO BID 03/27/17 [ Last Taken Unknown] Gabapentin [Neurontin 100 MG (*)] 100 mg PO HS 03/27/17 [Last Taken 03/24/17] Levothyroxine [Synthroid 112 mcg (*)] 112 mcg PO DAILY06 03/27/17 [Last Taken ] - NPO status NPO Status: no food or drink >8 hours NPO Since - Liquids (Date): 03/27/17 NPO Since - Liquids (Time): 09:00 - Smoking Hx Smoking Status: Never smoked - Alcohol Use Alcohol Use: Heavy ANE Labs/Vital Signs - Labs Result Diagrams: 03/27/17 11:50 03/27/17 11:50 - Vital Signs Blood Pressure: 155/100 Heart Rate: 104 Respiratory Rate: 16 O2 Sat (%): 96 Height: 167.64 cm Weight: 70.307 kg ANE Physical Exam - Airway Neck exam: FROM Mallampati Score: Class 2 Mouth exam: small mouth opening - Pulmonary Pulmonary: no respiratory distress - Cardiovascular Cardiovascular: regular rate and rhythym - ASA Status ASA Status: III ANE Anesthesia Plan Anesthesia Plan: GA w LMA Regional Anesthesia: single shot NB (RBA discussed)
[2017-03-27] MEDS ORDERED: MIDAZOLAM 2 MG/2 ML VIAL ONE (17:36)
[2017-03-27] MEDS ORDERED: PROPOFOL 200 MG/20 ML VIAL ONE (17:37)
[2017-03-27] MEDS ORDERED: PROPOFOL/EMULSION 500 MG/50 ML BOTTLE IV ONE (17:37)
[2017-03-27] MEDS ORDERED: fentaNYL 100 MCG/2 ML INJ ONE ×2 (17:37→20:04)
[2017-03-27] MEDS ORDERED: LIDOCAINE 2% 5 ML SDV ONE (17:45)
[2017-03-27] MEDS ORDERED: ONDANSETRON 4 MG/2 ML VIAL ONE (17:45)
[2017-03-27] MEDS ORDERED: DEXAMETHASONE 4 MG/ML VIAL ONE (17:45)
[2017-03-27] MEDS ORDERED: BUPIVACAINE 0.5% 30 ML SDV ONE ×2 (17:47→17:59)
[2017-03-27] MEDS ORDERED: clonIDINE 1 MG/10 ML VIAL EP ONE (17:49)
[2017-03-27] MEDS ORDERED: ceFAZolin 1 GM VIAL ONE ×2 (18:24)
[2017-03-27] MEDS ORDERED: fentaNYL 100 MCG/2 ML INJ IVP PRN (19:17)
[2017-03-27] MEDS ORDERED: LR 500 ML IV PRN (19:17)
[2017-03-27] MEDS ORDERED: OXYCODONE/APAP 5/325 TAB PO PRN (19:17)
[2017-03-27] MEDS ORDERED: HYDROCODONE/APAP 5/325 TAB PO PRN (19:17)
[2017-03-27] MEDS ORDERED: NALOXONE HCL 0.4 MG/ML INJ IVP PRN (19:17)
--- NOTE | 2017-03-27 19:52 | POSTOPPROG ---
Post Op Note Date of Operation: 03/27/17 Surgeon: Donaldo Crabtree Anesthesia: GET(General Endotracheal) Pre-op Diagnosis: R Tib/Fib fx Post-op Diagnosis: same Procedure: ORIF R Tib/Fib fx Inf/Abcess present in the surg proc area at time of surgery?: No EBL: 50-100
--- NOTE | 2017-03-27 19:58 | POSTANESTH ---
Post Anesthetic Evaluation Cardiovascular Status: Similar to Pre-Op Cond Respiratory Status: Similar to Pre-op Cond. Level of Consciousness/Mental Status: Can Participate in Eval Pain Control: Adequate, Prn Tx Ordered Nausea/Vomiting Control: Adequate, Prn Tx Ordered Complications Possibly Related to Anesthesia: None Noted
[2017-03-27] MEDS: ASPIRIN 81 MG CHEWABLE TAB PO SCH (22:14)
[2017-03-27] MEDS: GABAPENTIN 100 MG CAP PO SCH (22:15)
[2017-03-27] MEDS: NS 1,000 ML IV SCH (22:15)
[2017-03-27] MEDS: CALCIUM CARBONATE 500 MG TAB PO SCH (22:15)
[2017-03-27] MEDS: FAMOTIDINE 20 MG TAB PO SCH (22:15)
[2017-03-27] MEDS: LORazepam 1 MG TAB PO PRN (22:16)
[2017-03-28] MEDS: LORazepam 1 MG TAB PO PRN ×3 (04:02→15:07)
[2017-03-28] MEDS: oxyCODONE IR 5 MG TAB PO PRN ×2 (04:03→23:15)
--- NOTE | 2017-03-28 05:08 | GOP ---
[f rep st] OPERATIVE REPORT DATE OF OPERATION: 03/27/17 SURGEON: Donaldo Crabtree MD ANESTHESIA: General plus popliteal block performed by the anesthesiologist at my request for postoperative pain management. PREOPERATIVE DIAGNOSIS: Right closed distal tibia and fibular fracture. POSTOPERATIVE DIAGNOSIS: Right closed distal tibia and fibular fracture. PROCEDURE PERFORMED: 1. Open reduction, internal fixation, right distal tibia and fibular fracture. 2. Intraoperative use of fluoroscopy. FINDINGS: ESTIMATED BLOOD LOSS: Minimal. INDICATIONS: The patient is a 61-year-old who sustained a fall resulting in a right distal tib-fib fracture. Based on the unstable nature of her injury, it was recommended that operative treatment consisting of open reduction, internal fixation be pursued. The patient acknowledged she understood the potential risks including, but not limited to, bleeding, infection, neurovascular damage and loss of limb and limb function, malunion, nonunion, need for hardware removal, pain or functional limitations despite operative treatment, and anesthetic risks. She acknowledged she understood the potential risks, planned procedure, and postoperative plan well, and had all questions answered prior to surgery. She gave her consent for the operative procedure. DESCRIPTION OF PROCEDURE: The patient was brought in the operating room after IV antibiotics were administered. Popliteal block was performed by the anesthesiologist at my request for postoperative pain management. General anesthetic was administered. A tourniquet was placed on the right thigh, bump underneath the right hip and shoulder, and the right lower extremity was prepped and draped in standard sterile fashion. After marking the incisions and Jacob wrap exsanguination, tourniquet was inflated to 250. Attention was initially directed towards the fibula. A vertical incision was made distal tip of the fibula. Under fluoroscopic guidance, a 2.9 mm drill bit was placed from the tip of the fibula up the intramedullary canal. 100 mm long 4.0 mm cortical screw was placed up the fibula across the fracture site. An anterolateral approach to the distal tibia was utilized for exposure. A longitudinal incision was made lateral to the extensor digitorum communis tendons. The extensor retinaculum was incised, taking care to avoid damage to the superficial peroneal nerve. Dissection was carried lateral to the extensor digitorum communis tendons exposing the distal tibia. After dissecting extraperiosteally along the lateral aspect of the tibia, a 17-hole anterolateral distal tibial plate ([employer]) was slid along the extraperiosteal level. Distal fixation was accomplished with an initial 3.5 mm cortical locking screw securing the plate. A cortical nonlocking screw securing the plate and multiple 3.5 mm cortical locking screws. The plate was adjusted to allow for reduction of the fracture. Proximal fixation was then accomplished. The most proximal hole in the plate was filled with 3.5 mm bicortical screw in a lateral to medial direction. Dissection was made through a separate hole along the anterolateral aspect of the tibia with dissection through the fascia and musculature with the hemostat. Care was taken to avoid damage to the peroneal nerve. Several other small incisions were made, placing 3 additional cortical locking screws proximal to the fracture and through the plate. Fluoroscopic views confirmed favorable reduction and hardware placement. Attention was directed towards closure. The subcutaneous tissue was closed with 3-0 Vicryl suture in interrupted fashion. The skin was closed with mason proximally and 3-0 nylon vertical mattress sutures along the distal ankle incision. The wounds were dressed with sterile Adaptic, 4 x 4, and Webril , and the leg was placed in a below-knee splint. The patient tolerated the procedure well, was taken to the recovery room, extubated, in stable condition postoperatively. All sponge, needle, and instrument counts were reported as being correct. DRAINS: None. COMPLICATIONS: None. PLAN: The patient will be admitted for medical management. She will be nonweightbearing on her operative extremity. /[id number]/MODL MTDD
--- NOTE | 2017-03-28 05:08 | GCON ---
[f rep st] CONSULTATION DATE OF CONSULTATION: 03/27/2017 REASON FOR CONSULTATION: Right lower extremity injury. HISTORY RELATIVE TO CONSULTATION: The patient is a 61-year-old limited ambulator with a history of a lcohol abuse who sustained a fall resulting in a right tibia and fibula fracture. EXAMINATION: There is moderate diffuse swelling in the right ankle and lower leg. Her distal neurov ascular exam is intact. She has focal tenderness over the distal tibia with no gross deformity. IMAGING: AP and lateral radiographs of her ankle and lower leg show a minimally displaced oblique ti david and fibula fracture. ASSESSMENT: Right tibia and fibula fractures. PLAN: After a thorough discussion with the patient regarding operative and nonoperative treatment op tions, the patient elected to pursue operative treatment consisting of open reduction internal fixati on. This would be scheduled pending OR availability. /[id number]/MODL
[2017-03-28] MEDS: LEVOTHYROXINE 112 MCG TAB PO SCH (05:22)
--- NOTE | 2017-03-28 06:00 | SOAPPROG ---
SOAP Progress Note Assessment/Plan: Assessment: S/P ORIF R Tib/Fib Fx Nerve block functioning. Pain well controlled Merly po Splint intact, No D/C Toes 1-5 with good cap refill Decreased sensation d/t nerve block Plan: OOB/PT OK for D/C from ortho standpoint when medically stable, PT accomplished, Dispo arranged F/U Mon 04/09. Call for appt 03/28/17 05:57 Objective: Vital Signs Temp Pulse Resp BP Pulse Ox 36.3 C 101 H 19 137/93 H 93 03/28/17 04:00 03/28/17 04:00 03/28/17 04:00 03/28/17 04:00 03/28/17 04:00 Laboratory Results 03/27/17 11:50 03/27/17 11:50 03/26/17 03/27/17 03/28/17 05:59 05:59 05:59 Intake Total 2300 Output Total 400 Balance 1900 PT 15.5 SEC (12.0-15.0) H 03/27/17 11:50 INR 1.23 (0.83-1.16) H 03/27/17 11:50 ICD10 Worksheet Patient Problems: Problems Problem Status Onset Alcohol abuse Acute Alcohol withdrawal Acute Ankle fracture Acute Abdominal pain Acute Alcohol withdrawal Acute Atrial fibrillation with RVR Acute C. difficile diarrhea Acute 09/23/16 Nausea & vomiting Acute Nausea and vomiting in adult Acute Vomiting Acute
[2017-03-28 06:32] LABS: % IMMATURE GRANULYOCYTES 0.3 % (0.0-1.1); ABSOLUTE IMMATURE GRANULOCYTES 0.01 10^3/uL (0.00-0.10); ADD DIFF? NO; ADD MORPH? NO; ADD SCAN? NO; ATYPICAL LYMPHOCYTE FLAG 0 (0-99); FRAGMENT RBC FLAG 0 (0-99); HEMATOCRIT 28.9 % (38.0-47.0); HEMOGLOBIN 9.8 g/dL (12.6-16.3); LEFT SHIFT FLG 0 (0-99); LIPEMIA HEMOLYSIS FLAG 90 (0-99); MEAN CELL HEMOGLOBIN 36.4 pg (27.9-34.1); MEAN CELL HEMOGLOBIN CONCENTR. 33.9 g/dL (32.4-36.7); MEAN CELL VOLUME 107.4 fL (81.5-99.8); MEAN PLATELET VOLUME 11.5 fL (8.7-11.7); PLATELET CLUMPS FLAG 10 (0-99); PLATELET COUNT 58 10^3/uL (150-400); RED BLOOD CELL COUNT 2.69 10^6/uL (4.18-5.33); RED CELL DISTRIBUTION WIDTH 13.2 % (11.5-15.2)
[2017-03-28 07:10] LABS: ANION GAP 9 mEq/L (8-16); CALCIUM 7.5 mg/dL (8.5-10.4); CARBON DIOXIDE 23 mEq/l (22-31); CHLORIDE 98 mEq/L (97-110); CREATININE 0.6 mg/dL (0.6-1.0); GLOMERULAR FILTRATION RATE > 60; GLUCOSE 130 mg/dL (70-100); MAGNESIUM 1.2 mg/dL (1.6-2.3); POTASSIUM 4.2 mEq/L (3.5-5.2); SODIUM 130 mEq/L (134-144)
[2017-03-28] MEDS ORDERED: ENOXAPARIN 40 MG/0.4 ML SYR SC SCH (09:00)
--- NOTE | 2017-03-28 09:15 | HOSPPROG ---
Hospitalist Progress Note Assessment/Plan: DIAGNOSES: # right trimalleolar ankle fracture after a fall, status post ORIF March 27 # chronic alcoholism, with some risk of acute alcohol withdrawal; I see some mild delirium today but her CIWA scores have been recorded as very low per nurses so far and she has no tremor, does have some hypertension # acute on chronic lumbar muscle and SI joint back pain without radiculopathy, bother her at night # chronic gait instability with multiple for injury falls including previous fracture # recurrent alcohol-induced gastritis, stable at this time # chronic stable anemia, thrombocytopenia, coagulopathy due to her alcohol disease and liver disease; no indication for transfusion or any other interventions at this time but will need to watch these numbers closely during her treatment here # chronic intermittent atrial fibrillation, currently in a sinus rhythm with no left-sided heart failure # chronic stable edema of both legs probably due to combination of nutritional issues, possibly liver disease, would be concerned about possible pulmonary hypertension and right-sided heart failure as well PLANS: -continue PT and OT with nonweightbearing on injured ankle -begin discharge planning process, patient has stairs at her home, lives alone, very high fall risk with potential for recurrent ankle injury leading to per minute ankle pain and dysfunction -echocardiogram to assess for possible pulmonary hypertension -will give Flexeril for her back pain at that time -further alcohol counseling given today greater than 10 minutes spent on that topic in discussion SUBJECTIVE: Little pain in her foot and ankle at this time, still in the time window of the nerve block Complains of acute exacerbation of her chronic lumbar and SI joint pains while trying to sleep last night no radicular symptoms, she does not like there is new injury OBJECTIVE Vitals reviewed: Mild hypertension Exam: alert relaxed, with no tremor, but with some mild degree of disorientation skin warm dry color ok resps not labored lungs clear BSs heart regular abd soft nondistended nontender, bowel sounds present limbs warm, chronic edema unchanged, toes look good iv site ok Objective: Vital Signs Temp Pulse Resp BP Pulse Ox 36.6 C 90 14 117/77 100 03/28/17 07:44 03/28/17 07:44 03/28/17 07:44 03/28/17 07:44 03/28/17 07:44 Laboratory Results 03/28/17 06:20 03/28/17 06:20 03/27/17 03/28/1717 06:59 06:59 06:59 Intake Total 2300 Output Total 400 Balance 1900 PT 15.5 SEC (12.0-15.0) H 03/27/17 11:50 INR 1.23 (0.83-1.16) H 03/27/17 11:50 - Time Spent With Patient Time Spent with Patient: greater than 35 minutes Time Spent with Patient: Greater than 35 minutes spent on this patients care, greater than 50% of time spent counseling, educating, and coordinating care regarding the above mentioned plan. ICD10 Worksheet Patient Problems: Problems Problem Status Onset Alcohol abuse Acute Alcohol withdrawal Acute Ankle fracture Acute Abdominal pain Acute Alcohol withdrawal Acute Atrial fibrillation with RVR Acute C. difficile diarrhea Acute 09/23/16 Nausea & vomiting Acute Nausea and vomiting in adult Acute Vomiting Acute
[2017-03-28] MEDS: CALCIUM CARBONATE 500 MG TAB PO SCH ×2 (09:22→19:53)
[2017-03-28] MEDS: THIAMINE HCL 100 MG TAB PO SCH (09:22)
[2017-03-28] MEDS: ASCORBIC ACID 500 MG TAB PO SCH (09:23)
[2017-03-28] MEDS: FAMOTIDINE 20 MG TAB PO SCH ×2 (09:23→19:53)
[2017-03-28] MEDS: SERTRALINE HCL 50 MG TAB PO SCH (09:23)
[2017-03-28] MEDS: DILTIAZEM XR 240 MG CAP PO SCH (10:05)
--- NOTE | 2017-03-28 16:41 | ASMTCMCOM ---
CM Note CM Note Notes: Pt here for a fractured right ankle after falling d/t etoh. She lives alone and has a significant history of alcohol abuse. Pt had surgery today on ankle and is supposed to be non weight bearing on that leg but seems to have poor insight at this time. CM went to speak to pt re; PT/OT recommendations for snf. Pt was standing up bearing weight on both legs, the chair alarm was going off and she was very agitated and angry that CM would not hold her in case she fell while getting back in bed. CM notified RN who helped her get back in bed. Will try and talk to her about snf tomorrow. Pt has Medicaid and will need to agree to the 30 day stay at SNF but unsafe to be home alone. DC Plan: TBD Date Signed: 03/28/2017 04:40 PM Electronically Signed By:Minna Delgado RN
[2017-03-28] MEDS: ASPIRIN 81 MG CHEWABLE TAB PO SCH (19:53)
[2017-03-28] MEDS: GABAPENTIN 100 MG CAP PO SCH (19:53)
[2017-03-28] MEDS ORDERED: CYCLOBENZAPRINE 10 MG TAB PO SCH (21:00)
[2017-03-29] MEDS: oxyCODONE IR 5 MG TAB PO PRN ×2 (03:25→10:07)
[2017-03-29 05:04] LABS: ANION GAP 5 mEq/L (8-16); CALCIUM 7.3 mg/dL (8.5-10.4); CARBON DIOXIDE 27 mEq/l (22-31); CHLORIDE 99 mEq/L (97-110); CREATININE 0.6 mg/dL (0.6-1.0); GLOMERULAR FILTRATION RATE > 60; GLUCOSE 77 mg/dL (70-100); MAGNESIUM 1.3 mg/dL (1.6-2.3); POTASSIUM 3.8 mEq/L (3.5-5.2); SODIUM 131 mEq/L (134-144)
[2017-03-29] MEDS: LEVOTHYROXINE 112 MCG TAB PO SCH (05:53)
[2017-03-29] MEDS: SERTRALINE HCL 50 MG TAB PO SCH (10:06)
[2017-03-29] MEDS: ASCORBIC ACID 500 MG TAB PO SCH (10:07)
[2017-03-29] MEDS: CALCIUM CARBONATE 500 MG TAB PO SCH ×2 (10:07→20:35)
[2017-03-29] MEDS: THIAMINE HCL 100 MG TAB PO SCH (10:08)
[2017-03-29] MEDS: FAMOTIDINE 20 MG TAB PO SCH ×2 (10:08→20:34)
--- NOTE | 2017-03-29 10:18 | ASMTCAGE ---
CAGE Do you feel you ought to Answers: Yes cut down on your drinking or drug use? Do people annoy you by Answers: Yes criticizing your drinking or drug use? Do you feel guilty about Answers: Yes your drinking or drug use? Do you drink or use drugs Answers: Yes first thing in the morning ([facility])? Date Signed: 03/29/2017 10:17 AM Electronically Signed By:Tamika Stanley RN
--- NOTE | 2017-03-29 10:23 | ASMTCMCOM ---
CM Note CM Note Notes: Met with patient to review dc plan of care. She is confused and belligerent She verbally lashes out when questioned about her alcohol intake. Refuses to commit to 30 stay at SNF. She knows she is unable to bear weight and is frightened about her prospects. Worried about a dog at home then later recalls her pet is a black cat. She denies having family. States she might have friend she could stay with but given her alcohol problem doubt this is likely solution to her needs. May need to have cog evaluation to determine competency to move forward from here. CM to follow. Date Signed: 03/29/2017 10:23 AM Electronically Signed By:Tamika Stanley RN
[2017-03-29] MEDS: DILTIAZEM XR 240 MG CAP PO SCH (11:21)
[2017-03-29] MEDS ORDERED: PROTOCOL POTASSIUM 1 DOSE MISC PRN (12:34)
[2017-03-29] MEDS ORDERED: PROTOCOL MAGNESIUM 1 DOSE IV PRN (12:34)
--- NOTE | 2017-03-29 13:15 | HOSPPROG ---
Hospitalist Progress Note Assessment/Plan: DIAGNOSES: # right trimalleolar ankle fracture after a fall, status post ORIF March 27 # mild alcohol withdrawal highest CIWA score so far of 9 will require ongoing monitoring and management # acute on chronic lumbar muscle and SI joint back pain without radiculopathy, bother her at night # low magnesium and potassium likely related to her alcohol issues # chronic gait instability with multiple for injury falls including previous fracture # history of recurrent alcohol-induced gastritis, stable at this time # chronic stable anemia, thrombocytopenia, coagulopathy due to her alcohol disease and liver disease; no indication for transfusion or any other interventions at this time but will need to watch these numbers closely during her treatment here # chronic intermittent atrial fibrillation, currently in a sinus rhythm with no left-sided heart failure # chronic stable edema of both legs probably due to combination of nutritional issues, possibly liver disease, would be concerned about possible pulmonary hypertension and right-sided heart failure as well PLANS: -continue PT and OT with nonweightbearing on injured ankle -continue CIWA monitoring and management of withdrawal -electrolyte replacement -begin discharge planning process, patient has stairs at her home, lives alone, very high fall risk with potential for recurrent ankle injury leading to permanent ankle pain and dysfunction; if at all possible she really needs to end up in a penitentiary facility for rehabilitation until she is safely mobile and protecting her ankle -echocardiogram to assess for possible pulmonary hypertension -will change Flexeril to Robaxin which might be less likely to aggravate delirium from withdrawal SUBJECTIVE: Ongoing ankle pain, worse today likely due to nerve block wearing off Some ache at medial left knee with movement of that leg however no pain in left knee or leg with weight-bearing Eating okay She does admit to some degree of anxiety So far CIWA scores of 9, 2, 8 OBJECTIVE Vitals reviewed: Mild hypertension Exam: alert relaxed, with no tremor, but with some mild degree of disorientation skin warm dry color ok resps not labored lungs clear BSs heart regular abd soft nondistended nontender, bowel sounds present limbs warm, chronic edema unchanged, toes look good iv site ok Objective: Vital Signs Temp Pulse Resp BP Pulse Ox 37.1 C 80 16 94/58 L 91 L 03/29/17 04:00 03/29/17 11:28 03/29/17 11:28 03/29/17 11:28 03/29/17 11:28 Laboratory Results 03/28/17 06:20 03/29/17 04:45 03/28/17 03/29/17 03/30/17 06:59 06:59 06:59 Intake Total 2300 1000 Output Total 400 1550 50 Balance 1900 -550 -50 PT 15.5 SEC (12.0-15.0) H 03/27/17 11:50 INR 1.23 (0.83-1.16) H 03/27/17 11:50 ICD10 Worksheet Patient Problems: Problems Problem Status Onset Alcohol abuse Acute Alcohol withdrawal Acute Ankle fracture Acute Abdominal pain Acute Alcohol withdrawal Acute Atrial fibrillation with RVR Acute C. difficile diarrhea Acute 09/23/16 Nausea & vomiting Acute Nausea and vomiting in adult Acute Vomiting Acute
[2017-03-29] MEDS: LORazepam 1 MG TAB PO PRN (14:26)
[2017-03-29] MEDS ORDERED: ALTEPLASE 2 MG VIAL IVP PRN (14:28)
--- NOTE | 2017-03-29 14:52 | ECHO ---
[email or web address] [address] [address] Main: [phone] Fax: Transthoracic Echocardiogram Name: SAIRA RAHMAN MR#: [id number] Study Date: 03/29/2017 Study Time: 01:41 PM Date of : 1955 Age: 61 year(s) Height: 165.1 cm (65 in.) Weight: 69.85 kg (154 lb.) BSA: 1.77 m2 Gender: Female Examination: Echo Indication: Question Pulm Htn or LV Fx Image Quality: Contrast: Requested by: Beto Gates BP: 105 mmHg/98 mmHg Heart Rate: Rhythm: Indication: Question Pulm Htn or LV Fx Procedure Staff Dining Room Captain: Bart Ortiz Physician: Richard Sheth Requesting Provider: Measurements: Chambers Valvular Assessment AV/MV Valvular Assessment TV/PV Normal Normal Normal Name Value Range Name Value Range Name Value Range Ao Aiyana (MM): 2.5 cm (2.2 cm-3.7 AV Vmax: 1.30 m/s (1 m/s-1.7 PV Vmax: 1.00 m/s (0.6 m/s-0.9 cm) m/s) m/s) IVSd (2D): 0.9 cm (0.6 cm-1.1 AV maxP mmHg ( - ) PV PGmax: 4 mmHg ( - ) cm) LVOT Vmax: 1.10 m/s (0.7 m/s-1.1 LVDd (2D): 3.0 cm (3.9 cm-5.3 m/s) cm) MV E Vmax: 1.02 m/s ( - ) LVDs (2D): 1.8 cm (2.1 cm-4 MV A Vmax: 0.76 m/s ( - ) cm) MV E/A: 1.34 ( - ) LVPWd (2D): 1.0 cm ( - ) LVEF (2D): 73 (>=54 %) Continued Measurements: Chambers Name Value LADs Lon.4 cm LA Area: 13.9 cm2 LA Volume: 40 ml LA Volume Index: 22.6 ml/m2 Findings: Left Ventricle: Normal size left ventricle. Normal global systolic LV function. EF is 73 %. No regional wall motion abnormality. Right Ventricle: Patient: SAIRA RAHMAN Study Date: 03/29/2017 Page 1 of 2 01:41 PM Normal size right ventricle. Normal RV function. Left Atrium: The left atrium is normal in size. Right Atrium: The right atrium is normal in size. Mitral Valve: The mitral valve is normal in appearance and function. Trivial to mild mitral regurgitation. Aortic Valve: The aortic valve is tri-leaflet. The aortic valve is normal in appearance and function. Tricuspid Valve: The tricuspid valve is normal in appearance and function. There is no tricuspid valve regurgitation. Pulmonic Valve: The pulmonic valve is normal in appearance and function. Trivial pulmonic valve regurgitation. Aorta: The aorta is normal. Pericardium: No pericardial effusion. (No Signature Object) Patient: SAIRA RAHMAN Study Date: 03/29/2017 Page 2 of 2 01:41 PM [id number]
[2017-03-29] MEDS ORDERED: POTASSIUM CL 10 MEQ TAB PO ONE (16:46)
[2017-03-29] MEDS ORDERED: MAGNESIUM SULF 2 GM/WATER 50 ML IV ONE (16:48)
[2017-03-29] MEDS: ASPIRIN 81 MG CHEWABLE TAB PO SCH (20:34)
[2017-03-29] MEDS: METHOCARBAMOL 500 MG TAB PO SCH (20:35)
[2017-03-29] MEDS: traZODone 50 MG TAB PO SCH (20:35)
[2017-03-29] MEDS: GABAPENTIN 100 MG CAP PO SCH (20:35)
[2017-03-29] MEDS: MELATONIN 3 MG TAB PO SCH (20:35)
[2017-03-30] MEDS: ACETAMINOPHEN 325 MG TAB PO PRN ×2 (00:09→18:06)
[2017-03-30] MEDS: NS 1,000 ML IV SCH (04:44)
[2017-03-30] MEDS: LEVOTHYROXINE 112 MCG TAB PO SCH (05:28)
[2017-03-30 05:55] LABS: ANION GAP 8 mEq/L (8-16); CALCIUM 7.8 mg/dL (8.5-10.4); CARBON DIOXIDE 28 mEq/l (22-31); CHLORIDE 103 mEq/L (97-110); CREATININE 0.6 mg/dL (0.6-1.0); GLOMERULAR FILTRATION RATE > 60; GLUCOSE 78 mg/dL (70-100); MAGNESIUM 1.8 mg/dL (1.6-2.3); SODIUM 139 mEq/L (134-144)
[2017-03-30] MEDS ORDERED: MAGNESIUM SULF 1 GM/DEXTROSE 100 ML IV ONE (10:22)
[2017-03-30] MEDS: CALCIUM CARBONATE 500 MG TAB PO SCH ×2 (10:46→19:57)
[2017-03-30] MEDS: ASCORBIC ACID 500 MG TAB PO SCH (10:47)
[2017-03-30] MEDS: THIAMINE HCL 100 MG TAB PO SCH (10:47)
[2017-03-30] MEDS: SERTRALINE HCL 50 MG TAB PO SCH (10:47)
[2017-03-30] MEDS: FAMOTIDINE 20 MG TAB PO SCH ×2 (10:48→19:56)
[2017-03-30] MEDS: DILTIAZEM XR 240 MG CAP PO SCH (10:48)
[2017-03-30] MEDS ORDERED: FUROSEMIDE 20 MG TAB PO ONE (13:32)
--- NOTE | 2017-03-30 13:37 | HOSPPROG ---
Hospitalist Progress Note Assessment/Plan: DIAGNOSES: # right trimalleolar ankle fracture after a fall, status post ORIF March 27 # mild alcohol withdrawal currently all but resolved # acute on chronic lumbar muscle and SI joint back pain without radiculopathy, bother her at night # low magnesium and potassium likely related to her alcohol issues # chronic gait instability with multiple for injury falls including previous fracture # history of recurrent alcohol-induced gastritis, stable at this time # chronic stable anemia, thrombocytopenia, coagulopathy due to her alcohol disease and liver disease; no indication for transfusion or any other interventions at this time but will need to watch these numbers closely during her treatment here # chronic intermittent atrial fibrillation, currently in a sinus rhythm with no left-sided heart failure # chronic stable edema of both legs probably due to combination of nutritional issues, possibly liver disease; no sign of cardiac pulmonary or pulmonary pressure issues on echo PLANS: -continue PT and OT with nonweightbearing on injured ankle -continue CIWA monitoring and management of withdrawal which is very nearly completely resolved at this time -electrolyte replacement -begin discharge planning process, patient has stairs at her home, lives alone, very high fall risk with potential for recurrent ankle injury leading to permanent ankle pain and dysfunction; if at all possible she really needs to end up in a long-term facility for rehabilitation until she is safely mobile and protecting her ankle -will change Flexeril to Robaxin which might be less likely to aggravate delirium from withdrawal She should be ready for transfer to long-term facility within 1-2 days, will review with case management SUBJECTIVE: Ongoing ankle pain, is actually somewhat better today A lot of stress and anxiety yesterday's improved today Eating okay She does admit to some degree of anxiety OBJECTIVE Vitals reviewed: Mild hypertension otherwise stable without fever Exam: alert relaxed, with no tremor, but with some mild degree of disorientation skin warm dry color ok resps not labored lungs clear BSs heart regular abd soft nondistended nontender, bowel sounds present limbs warm, chronic edema unchanged, toes look good iv site ok Objective: Vital Signs Temp Pulse Resp BP Pulse Ox 35.8 C L 72 14 91/59 L 98 03/30/17 11:50 03/30/17 11:50 03/30/17 11:50 03/30/17 11:50 03/30/17 11:50 Laboratory Results 03/28/17 06:20 03/30/17 04:45 03/29/17 03/30/17 03/31/17 06:59 06:59 06:59 Intake Total 1000 1162 Output Total 1550 350 300 Balance -550 812 -300 PT 15.5 SEC (12.0-15.0) H 03/27/17 11:50 INR 1.23 (0.83-1.16) H 03/27/17 11:50 ICD10 Worksheet Patient Problems: Problems Problem Status Onset Alcohol abuse Acute Alcohol withdrawal Acute Ankle fracture Acute Abdominal pain Acute Alcohol withdrawal Acute Atrial fibrillation with RVR Acute C. difficile diarrhea Acute 09/23/16 Nausea & vomiting Acute Nausea and vomiting in adult Acute Vomiting Acute
--- NOTE | 2017-03-30 15:17 | ASMTCMCOM ---
CM Note CM Note Notes: Pt agreeable to Medicaid SNF 30 day stay. ULTC 100 submitted to [facility] and [facility] alerted for LTC [facility]. Pt would like SNF in [place] close to friend Renay. Referrals sent to [facility], [facility], [facility] and [facility]. CM to follow. Date Signed: 03/30/2017 03:17 PM Electronically Signed By:JOSE Dsouza
[2017-03-30] MEDS: oxyCODONE IR 5 MG TAB PO PRN (18:07)
[2017-03-30] MEDS: traZODone 50 MG TAB PO SCH (19:56)
[2017-03-30] MEDS: ASPIRIN 81 MG CHEWABLE TAB PO SCH (19:58)
[2017-03-30] MEDS: METHOCARBAMOL 500 MG TAB PO SCH (19:58)
[2017-03-30] MEDS: MELATONIN 3 MG TAB PO SCH (19:58)
[2017-03-30] MEDS: GABAPENTIN 100 MG CAP PO SCH (19:59)
[2017-03-30 20:16] LABS: POTASSIUM 3.8 mEq/L (3.5-5.2)
[2017-03-30] MEDS ORDERED: POTASSIUM CL 10 MEQ TAB PO ONE (20:46)
[2017-03-31] MEDS: LEVOTHYROXINE 112 MCG TAB PO SCH (05:22)
[2017-03-31 05:51] LABS: ANION GAP 8 mEq/L (8-16); CALCIUM 7.6 mg/dL (8.5-10.4); CARBON DIOXIDE 28 mEq/l (22-31); CHLORIDE 101 mEq/L (97-110); CREATININE 0.6 mg/dL (0.6-1.0); GLOMERULAR FILTRATION RATE > 60; GLUCOSE 73 mg/dL (70-100); MAGNESIUM 1.8 mg/dL (1.6-2.3); POTASSIUM 3.9 mEq/L (3.5-5.2); SODIUM 137 mEq/L (134-144)
[2017-03-31] MEDS ORDERED: LACTULOSE 20 GM/30 ML UDCUP PO PRN (06:15)
[2017-03-31] MEDS ORDERED: MAGNESIUM HYDROXIDE 30 ML UDCUP PO PRN (06:15)
[2017-03-31] MEDS ORDERED: POLYETHYLENE GLYCOL 3350 17 GM PKT PO PRN (06:15)
[2017-03-31] MEDS ORDERED: BISACODYL 10 MG SUPP PR PRN (06:15)
[2017-03-31] MEDS ORDERED: POTASSIUM CL 10 MEQ TAB PO ONE (07:56)
[2017-03-31] MEDS ORDERED: MAGNESIUM SULF 1 GM/DEXTROSE 100 ML IV ONE (07:57)
[2017-03-31] MEDS: CALCIUM CARBONATE 500 MG TAB PO SCH ×2 (09:49→21:26)
[2017-03-31] MEDS: DILTIAZEM XR 240 MG CAP PO SCH (09:49)
[2017-03-31] MEDS: THIAMINE HCL 100 MG TAB PO SCH (09:49)
[2017-03-31] MEDS: SENNOSIDES/DOCUSATE SODIUM TAB PO SCH ×2 (09:49→21:48)
[2017-03-31] MEDS: FAMOTIDINE 20 MG TAB PO SCH ×2 (09:50→21:26)
[2017-03-31] MEDS: SERTRALINE HCL 50 MG TAB PO SCH (09:50)
[2017-03-31] MEDS: ASCORBIC ACID 500 MG TAB PO SCH (09:51)
[2017-03-31] MEDS: oxyCODONE IR 5 MG TAB PO PRN ×2 (10:06→21:25)
[2017-03-31] MEDS: ACETAMINOPHEN 325 MG TAB PO PRN ×2 (10:06→21:26)
--- NOTE | 2017-03-31 16:56 | HOSPPROG ---
Hospitalist Progress Note Assessment/Plan: DIAGNOSES: # right trimalleolar ankle fracture after a fall, status post ORIF March 27 # mild alcohol withdrawal currently resolved # acute on chronic lumbar muscle and SI joint back pain without radiculopathy, bother her at night # low magnesium and potassium likely related to her alcohol issues # chronic gait instability with multiple for injury falls including previous fracture # history of recurrent alcohol-induced gastritis, stable at this time # chronic pancytopenia and coagulopathy due to her alcohol disease and liver disease; no indication for transfusion or any other interventions beyond good nutrition and alcohol abstinence # chronic intermittent atrial fibrillation, currently in a sinus rhythm with no left-sided heart failure # chronic stable edema of both legs probably due to combination of nutritional issues, possibly liver disease; no sign of cardiac pulmonary or pulmonary pressure issues on echo PLANS: -continue PT and OT with nonweightbearing on injured ankle -can stop CIWA monitoring at this time -electrolyte replacement -ongoing discharge planning process, patient has stairs at her home, lives alone , very high fall risk with potential for recurrent ankle injury leading to permanent ankle pain and dysfunction; if at all possible she really needs to end up in a custodial facility for rehabilitation until she is safely mobile and protecting her ankle -she is medically stable for transfer to a custodial facility once we get that arranged SUBJECTIVE: Still some ankle pain but fairly mild Notably less stress and anxiety at this time Eating okay OBJECTIVE Vitals reviewed: Mild hypertension otherwise stable without fever Exam: alert relaxed, with no tremor, but with some mild degree of disorientation skin warm dry color ok resps not labored lungs clear BSs heart regular abd soft nondistended nontender, bowel sounds present limbs warm, chronic edema unchanged, toes look good iv site ok Objective: Vital Signs Temp Pulse Resp BP Pulse Ox 37.2 C 78 16 90/53 L 95 03/31/17 15:37 03/31/17 15:37 03/31/17 15:37 03/31/17 15:37 03/31/17 15:37 Laboratory Results 03/28/17 06:20 03/31/17 Unknown 03/30/17 03/31/17 04/01/17 06:59 06:59 06:59 Intake Total 1162 300 75 Output Total 943 091 4265 Balance 812 0 -975 PT 15.5 SEC (12.0-15.0) H 03/27/17 11:50 INR 1.23 (0.83-1.16) H 03/27/17 11:50 ICD10 Worksheet Patient Problems: Problems Problem Status Onset Alcohol abuse Acute Alcohol withdrawal Acute Ankle fracture Acute Abdominal pain Acute Alcohol withdrawal Acute Atrial fibrillation with RVR Acute C. difficile diarrhea Acute 09/23/16 Nausea & vomiting Acute Nausea and vomiting in adult Acute Vomiting Acute
[2017-03-31] MEDS: METHOCARBAMOL 500 MG TAB PO SCH (21:26)
[2017-03-31] MEDS: MELATONIN 3 MG TAB PO SCH (21:26)
[2017-03-31] MEDS: ASPIRIN 81 MG CHEWABLE TAB PO SCH (21:26)
[2017-03-31] MEDS: GABAPENTIN 100 MG CAP PO SCH (21:26)
[2017-03-31] MEDS: traZODone 50 MG TAB PO SCH (21:48)
[2017-04-01 04:56] LABS: MAGNESIUM 1.8 mg/dL (1.6-2.3)
[2017-04-01] MEDS: LEVOTHYROXINE 112 MCG TAB PO SCH (06:49)
[2017-04-01] MEDS ORDERED: MAGNESIUM SULF 1 GM/DEXTROSE 100 ML IV ONE (07:29)
[2017-04-01] MEDS: SERTRALINE HCL 50 MG TAB PO SCH (09:36)
[2017-04-01] MEDS: DILTIAZEM XR 240 MG CAP PO SCH (09:36)
[2017-04-01] MEDS: ASCORBIC ACID 500 MG TAB PO SCH (09:38)
[2017-04-01] MEDS: FAMOTIDINE 20 MG TAB PO SCH ×2 (09:38→20:06)
[2017-04-01] MEDS: CALCIUM CARBONATE 500 MG TAB PO SCH ×2 (09:39→20:07)
[2017-04-01] MEDS: THIAMINE HCL 100 MG TAB PO SCH (09:40)
[2017-04-01] MEDS: SENNOSIDES/DOCUSATE SODIUM TAB PO SCH ×2 (09:40→20:07)
--- NOTE | 2017-04-01 11:45 | HOSPPROG ---
Hospitalist Progress Note Assessment/Plan: Assessment: 61-year-old female presents with acute traumatic trimalleolar fracture requiring ORIF on 03/27/2017, complicated by acute alcohol withdrawal Plan: 1. Trimalleolar fracture. Acute, traumatic, status post ORIF 03/27/[address] Jameson Crabtree -sluggish cap refill with paresthesias in distal toes, will discuss with Dr. Crabtree -requiring ongoing cast, receiving ongoing PT and OT -patient will require usp facility, patient agrees to 30 day stay, [facility] in place 2. Acute alcohol withdrawal. Patient reports her last use of alcohol was immediately prior to presentation, the patient has stabilized with Librium and Ativan, continue for additional 24 hr of scheduled Librium then reduce to p.r.n. 3. Acute on chronic lumbar muscular back pain with radiculopathy, worse at night , continue monitor 4. Acute hypokalemia and hypomagnesemia, secondary to poor oral intake, continue to monitor -encouraged oral intake, provide smoothies and ensure 5. Gait instability. Chronic, status post multiple falls and injury with previous fractures, requiring usp facility for ongoing rehab 6. Pancytopenia. Chronic, secondary to chronic alcohol use with resultant liver disease, continue to monitor 7. Paroxysmal atrial fibrillation. History of intermittent rapid ventricular response, usually provoked by either alcohol intoxication or alcohol withdrawal , currently in normal sinus mechanism -continue alexsander blocking agent -continue on aspirin, hold systemic anticoagulation given recent surgery as well as recurrent falls -echocardiogram demonstrating no significant valvular abnormalities Diet. Regular with supplements Prophylaxis. High risk patient, Lovenox 40 Code. Full Disposition. Anticipated discharge uncertain this time, awaiting [facility] Medicaid authorization for usp facility, patient currently unsafe to medically discharged to any lower level of care, as there is not currently a lower level of care available until Medicaid authorizes. Subjective: Patient reports paresthesias in distal right toes, she is moving her bowels, she has a slight tremor bilateral hands Objective: Vital Signs Temp Pulse Resp BP Pulse Ox 36.4 C 65 14 94/64 L 93 04/01/17 08:27 04/01/17 08:27 04/01/17 08:27 04/01/17 08:27 04/01/17 09:35 Laboratory Results 03/28/17 06:20 04/01/17 04:25 1204/01/17 04/02/17 05:59 05:59 05:59 Intake Total 300 475 75 Output Total 300 2250 150 Balance 0 -1775 -75 PT 15.5 SEC (12.0-15.0) H 03/27/17 11:50 INR 1.23 (0.83-1.16) H 03/27/17 11:50 - Physical Exam Constitutional: no apparent distress, not in pain, chronically ill appearing, No uncomfortable Cardiovascular: regular rate and rhythym, no murmur, rub, or gallop, other ( Sluggish cap refill in distal right toes, approximately 4 sec), No edema Respiratory: no respiratory distress, no rales or rhonchi, clear to auscultation Gastrointestinal: normoactive bowel sounds, soft, non-tender abdomen, no palpable masses Neurologic: AAOx3, weakness (Full range of motion distal right toes), No sensation intact bilaterally (Paresthesias distal right toe), No asterixes ( Bilateral tremulousness of the hands, very fine) Psychiatric: interacting appropriately, not anxious, not encephalopathic, thought process linear ICD10 Worksheet Patient Problems: Problems Problem Status Onset Abdominal pain Acute Ankle fracture Acute Alcohol withdrawal Acute Nausea and vomiting in adult Acute Alcohol abuse Acute Nausea & vomiting Acute Vomiting Acute Atrial fibrillation with RVR Acute C. difficile diarrhea Acute 09/23/16 Alcohol withdrawal Acute
[2017-04-01] MEDS: ACETAMINOPHEN 325 MG TAB PO PRN (13:54)
[2017-04-01] MEDS: oxyCODONE IR 5 MG TAB PO PRN (14:20)
[2017-04-01] MEDS: traZODone 50 MG TAB PO SCH (20:06)
[2017-04-01] MEDS: METHOCARBAMOL 500 MG TAB PO SCH (20:06)
[2017-04-01] MEDS: MELATONIN 3 MG TAB PO SCH (20:06)
[2017-04-01] MEDS: GABAPENTIN 100 MG CAP PO SCH (20:06)
[2017-04-01] MEDS: ASPIRIN 81 MG CHEWABLE TAB PO SCH (20:06)
[2017-04-02] MEDS: LEVOTHYROXINE 112 MCG TAB PO SCH (04:12)
[2017-04-02 04:30] LABS: % IMMATURE GRANULYOCYTES 0.7 % (0.0-1.1); ABSOLUTE IMMATURE GRANULOCYTES 0.02 10^3/uL (0.00-0.10); ADD DIFF? NO; ADD MORPH? NO; ADD SCAN? NO; ATYPICAL LYMPHOCYTE FLAG 0 (0-99); FRAGMENT RBC FLAG 0 (0-99); HEMATOCRIT 27.6 % (38.0-47.0); HEMOGLOBIN 9.3 g/dL (12.6-16.3); LEFT SHIFT FLG 0 (0-99); LIPEMIA HEMOLYSIS FLAG 80 (0-99); MEAN CELL HEMOGLOBIN 36.8 pg (27.9-34.1); MEAN CELL HEMOGLOBIN CONCENTR. 33.7 g/dL (32.4-36.7); MEAN CELL VOLUME 109.1 fL (81.5-99.8); MEAN PLATELET VOLUME 10.3 fL (8.7-11.7); PLATELET CLUMPS FLAG 0 (0-99); PLATELET COUNT 123 10^3/uL (150-400); RED BLOOD CELL COUNT 2.53 10^6/uL (4.18-5.33); RED CELL DISTRIBUTION WIDTH 14.3 % (11.5-15.2)
[2017-04-02 04:44] LABS: ALANINE AMINOTRANSFERASE 47 IU/L (9-52); ALBUMIN 2.2 g/dL (3.5-5.0); ALKALINE PHOSPHATASE 234 IU/L (38-126); ANION GAP 5 mEq/L (8-16); ASPARTATE AMINOTRANSFERASE 54 IU/L (14-46); BILIRUBIN,TOTAL 2.5 mg/dL (0.1-1.4); CALCIUM 8.2 mg/dL (8.5-10.4); CARBON DIOXIDE 29 mEq/l (22-31); CHLORIDE 104 mEq/L (97-110); CREATININE 0.6 mg/dL (0.6-1.0); GLOMERULAR FILTRATION RATE > 60; GLUCOSE 74 mg/dL (70-100); POTASSIUM 4.2 mEq/L (3.5-5.2); SODIUM 138 mEq/L (134-144); TOTAL PROTEIN 4.4 g/dL (6.3-8.2)
[2017-04-02 04:51] LABS: BILIRUBIN-CONJUGATED 1.5 mg/dL (0.0-0.5)
[2017-04-02] MEDS: ASCORBIC ACID 500 MG TAB PO SCH (08:18)
[2017-04-02] MEDS: THIAMINE HCL 100 MG TAB PO SCH (08:18)
[2017-04-02] MEDS: CALCIUM CARBONATE 500 MG TAB PO SCH ×2 (08:19→20:55)
[2017-04-02] MEDS: DILTIAZEM XR 240 MG CAP PO SCH (08:21)
[2017-04-02] MEDS: FAMOTIDINE 20 MG TAB PO SCH ×2 (08:21→20:56)
[2017-04-02] MEDS: SERTRALINE HCL 50 MG TAB PO SCH (08:21)
[2017-04-02] MEDS: SENNOSIDES/DOCUSATE SODIUM TAB PO SCH ×2 (10:10→20:56)
[2017-04-02] MEDS: ENOXAPARIN 40 MG/0.4 ML SYR SC SCH (16:19)
[2017-04-02] MEDS: ACETAMINOPHEN 325 MG TAB PO PRN (16:26)
[2017-04-02] MEDS: oxyCODONE IR 5 MG TAB PO PRN (16:27)
--- NOTE | 2017-04-02 16:42 | ASMTCMCOM ---
CM Note CM Note Notes: Pt has been screened by [employer] for LT Medicaid for SNF placement; per Dorcas from [employer], pt is over assets and therefore will not qualify for LT M"patrick. Discussed this w/pt who was disappointed that this means she probably would not be able to go to SNF rehab. Pt did ask how much it would be out of pocket to go to rehab; sr blue book given that provides room and board rates and spoke to Janessa at [facility] and asked how much she would pay out of pocket for therapy and she said $50 for every 15 min of therapy; gave this info to pt. This may be too financially difficult for pt. She is going to talk with her friend Laurie who she said she could maybe pay to stay with her and help her out. If she does go home she would need [facility] services and pt would like to use [facility]. Also discussed alcohol treatment resources and pt was open to receiving these prior to dc; she said she has already been looking into some on her own prior to hospitalization but that is hard with Medicaid. She seems to be very willing to talk about it and open to resources. She said she would also like to talk with Minna Nieves. I left voicemail w/Minna. Also, discussed with RN and PT as we will need to determine what pt's needs will be (ie, 24 hr care or not, DME she will need, etc...) if she is to dc home. CM will follow. Date Signed: 04/02/2017 04:42 PM Electronically Signed By:Maris Martinez RN
--- NOTE | 2017-04-02 19:45 | HOSPPROG ---
Hospitalist Progress Note Assessment/Plan: Assessment: 61-year-old female presents with acute traumatic trimalleolar fracture requiring ORIF on 03/27/2017, complicated by acute alcohol withdrawal Plan: 1. Trimalleolar fracture. Acute, traumatic, status post ORIF 03/27/[address] Jameson Crabtree -sluggish cap refill with paresthesias in distal toes, d/w Dr. Crabtree, recommends loosening the splint -requiring ongoing cast, receiving ongoing PT and OT -patient [facility], patient agrees to 30 day stay, [facility] in place, will d/w CM b/c patient believes application denied -d/w patient alternative dispo locations, has no supportive family/friends locally 2. Acute alcohol withdrawal. Patient reports her last use of alcohol was immediately prior to presentation, the patient has stabilized with Librium and Ativan, reduced to PRN librium today 3. Acute on chronic lumbar muscular back pain with radiculopathy, worse at night , continue monitor 4. Acute hypokalemia and hypomagnesemia, secondary to poor oral intake, continue to monitor -encouraged oral intake, provide smoothies and ensure 5. Gait instability. Chronic, status post multiple falls and injury with previous fractures, requiring [facility] for ongoing rehab 6. Pancytopenia. Chronic, secondary to chronic alcohol use with resultant liver disease, continue to monitor 7. Paroxysmal atrial fibrillation. History of intermittent rapid ventricular response, usually provoked by either alcohol intoxication or alcohol withdrawal , currently in normal sinus mechanism -continue alexsander blocking agent -continue on aspirin, hold systemic anticoagulation given recent surgery as well as recurrent falls -echocardiogram demonstrating no significant valvular abnormalities Diet. Regular with supplements Prophylaxis. High risk patient, Lovenox 40 Code. Full Disposition. Anticipated discharge uncertain this time, awaiting [facility] Medicaid authorization for [place] [facility], patient currently unsafe to medically discharged to any lower level of care, as there is not currently a lower level of care available until Medicaid authorizes. Subjective: patient tearful that her Medicaid rodrigo may have been denied, pain in leg tolerable Objective: Vital Signs Temp Pulse Resp BP Pulse Ox 36.9 C 79 14 95/54 L 97 04/02/17 19:20 04/02/17 19:20 04/02/17 19:20 04/02/17 19:20 04/02/17 19:20 Laboratory Results 04/02/17 04:10 04/02/17 04:10 04/01/17 04/02/17 04/03/17 05:59 05:59 05:59 Intake Total 475 1375 1830 Output Total 2250 150 150 Balance -1775 1225 1680 PT 15.5 SEC (12.0-15.0) H 03/27/17 11:50 INR 1.23 (0.83-1.16) H 03/27/17 11:50 - Physical Exam Constitutional: no apparent distress, not in pain, chronically ill appearing, uncomfortable Cardiovascular: regular rate and rhythym, no murmur, rub, or gallop, other ( sluggish cap refill in R toes), No tachycardia Respiratory: no respiratory distress, no rales or rhonchi, clear to auscultation Gastrointestinal: normoactive bowel sounds, soft, non-tender abdomen, no palpable masses Neurologic: AAOx3, No sensation intact bilaterally (R toes paresthesias), No weakness (able to move all R toes) Psychiatric: interacting appropriately, not encephalopathic, thought process linear, anxious ICD10 Worksheet Patient Problems: Problems Problem Status Onset Abdominal pain Acute Ankle fracture Acute Alcohol withdrawal Acute Nausea and vomiting in adult Acute Alcohol abuse Acute Nausea & vomiting Acute Vomiting Acute Atrial fibrillation with RVR Acute C. difficile diarrhea Acute 09/23/16 Alcohol withdrawal Acute
[2017-04-02] MEDS: MELATONIN 3 MG TAB PO SCH (20:55)
[2017-04-02] MEDS: GABAPENTIN 100 MG CAP PO SCH (20:55)
[2017-04-02] MEDS: ASPIRIN 81 MG CHEWABLE TAB PO SCH (20:55)
[2017-04-02] MEDS: traZODone 50 MG TAB PO SCH (20:56)
[2017-04-02] MEDS: METHOCARBAMOL 500 MG TAB PO SCH (20:56)
[2017-04-02 21:48] LABS: COLOR AMBER; LEUKOCYTE ESTERASE,URINE NEGATIVE (NEGATIVE); NITRITE,URINE NEGATIVE (NEGATIVE)
[2017-04-03] MEDS: LEVOTHYROXINE 112 MCG TAB PO SCH (05:17)
[2017-04-03] MEDS: ACETAMINOPHEN 325 MG TAB PO PRN ×3 (09:01→20:14)
[2017-04-03] MEDS: ENOXAPARIN 40 MG/0.4 ML SYR SC SCH (09:17)
[2017-04-03] MEDS: ASCORBIC ACID 500 MG TAB PO SCH (09:18)
[2017-04-03] MEDS: CALCIUM CARBONATE 500 MG TAB PO SCH ×2 (09:22→20:15)
[2017-04-03] MEDS: SERTRALINE HCL 50 MG TAB PO SCH (09:22)
[2017-04-03] MEDS: FAMOTIDINE 20 MG TAB PO SCH ×2 (09:22→20:14)
[2017-04-03] MEDS: DILTIAZEM XR 240 MG CAP PO SCH (09:22)
[2017-04-03] MEDS: THIAMINE HCL 100 MG TAB PO SCH (09:23)
[2017-04-03] MEDS: SENNOSIDES/DOCUSATE SODIUM TAB PO SCH ×2 (09:27→20:14)
[2017-04-03] MEDS: oxyCODONE IR 5 MG TAB PO PRN ×2 (15:07→20:15)
--- NOTE | 2017-04-03 15:10 | ASMTCMCOM ---
CM Note CM Note Notes: Met with patient to review plan of care. 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 I have encouraged her to call providers in the booklet to see if she is able to hire a caregiver at this point. Likely ready for discharge soon. CM to follow. Date Signed: 04/03/2017 03:10 PM Electronically Signed By:Tamika Stanley RN
--- NOTE | 2017-04-03 17:10 | HOSPPROG ---
Hospitalist Progress Note Assessment/Plan: Assessment: 61-year-old female presents with acute traumatic trimalleolar fracture requiring ORIF on 03/27/2017, complicated by acute alcohol withdrawal Plan: 1. Trimalleolar fracture. Acute, traumatic, status post ORIF 03/27/[address] Jameson Crabtree -sluggish cap refill with paresthesias in distal toes, d/w RN will loosen splint today and be reassessed by Dr. Crabtree tomorrow AM -requiring ongoing cast, receiving ongoing PT and OT -will recommend lovenox 40 daily until cast off -d/w patient and case mgmt alternative dispo locations, plan for home care and in the process of arranging 24/7 private duty in short term 2. Acute alcohol withdrawal. Patient reports her last use of alcohol was immediately prior to presentation, the patient has stabilized with Librium and Ativan, reduced to PRN librium 3. Acute on chronic lumbar muscular back pain with radiculopathy, worse at night , continue monitor 4. Acute hypokalemia and hypomagnesemia, secondary to poor oral intake, continue to monitor -encouraged oral intake, provide smoothies and ensure 5. Gait instability. Chronic, status post multiple falls and injury with previous fractures, requiring alf facility for ongoing rehab 6. Pancytopenia. Chronic, secondary to chronic alcohol use with resultant liver disease 7. Paroxysmal atrial fibrillation. History of intermittent rapid ventricular response, usually provoked by either alcohol intoxication or alcohol withdrawal , currently in normal sinus mechanism -continue alexsander blocking agent -continue on aspirin, hold systemic anticoagulation given recurrent falls -echocardiogram demonstrating no significant valvular abnormalities 8. Alcoholism. Patient reports no alcohol in home, counseled that she may have access to outpt resources and case mgmt will work closely w/ her to identify -encouraged to enlist assistance from her AA support Diet. Regular with supplements Prophylaxis. High risk patient, Lovenox 40 Code. Full Disposition. Anticipated discharge uncertain this time, awaiting arrangements for 24/7 care at home, given [facility] denial from Medicaid and patient unable to pay out of pocket for SNF. Subjective: patient feeling sad about current situation, feeling hopeless Objective: Vital Signs Temp Pulse Resp BP Pulse Ox 37.3 C 90 16 109/61 95 04/03/17 16:00 04/03/17 16:00 04/03/17 16:00 04/03/17 16:00 04/03/17 16:00 Laboratory Results 04/02/17 04:10 04/02/17 04:10 04/02/17 04/03/17 04/04/17 05:59 05:59 05:59 Intake Total 1375 1830 830 Output Total 150 250 300 Balance 1225 1580 530 PT 15.5 SEC (12.0-15.0) H 03/27/17 11:50 INR 1.23 (0.83-1.16) H 03/27/17 11:50 - Time Spent With Patient Time Spent with Patient: greater than 35 minutes Time Spent with Patient: Greater than 35 minutes spent on this patients care, greater than 50% of time spent counseling, educating, and coordinating care regarding the above mentioned plan. - Physical Exam Constitutional: chronically ill appearing, uncomfortable, No no apparent distress (moderate) Neurologic: AAOx3, No sensation intact bilaterally (paresthesias R toes), No weakness (motor intact R toes) Psychiatric: not encephalopathic, anxious, depressed, flat affect, No agitated ICD10 Worksheet Patient Problems: Problems Problem Status Onset Abdominal pain Acute Ankle fracture Acute Alcohol withdrawal Acute Nausea and vomiting in adult Acute Alcohol abuse Acute Nausea & vomiting Acute Vomiting Acute Atrial fibrillation with RVR Acute C. difficile diarrhea Acute 09/23/16 Alcohol withdrawal Acute
[2017-04-03] MEDS: GABAPENTIN 100 MG CAP PO SCH (20:14)
[2017-04-03] MEDS: METHOCARBAMOL 500 MG TAB PO SCH (20:15)
[2017-04-03] MEDS: MELATONIN 3 MG TAB PO SCH (20:15)
[2017-04-03] MEDS: ASPIRIN 81 MG CHEWABLE TAB PO SCH (20:15)
[2017-04-03] MEDS: traZODone 50 MG TAB PO SCH (20:15)
--- NOTE | 2017-04-04 05:51 | SOAPPROG ---
SOAP Progress Note Assessment/Plan: Assessment: S/P ORIF R Tib/Fib Fx Nerve block functioning. Pain well controlled Merly po Splint intact, No D/C Toes 1-5 with good cap refill Decreased sensation d/t nerve block Plan: OOB/PT OK for D/C from ortho standpoint when medically stable, PT accomplished, Dispo arranged F/U Mon 04/09. Call for appt 03/28/17 05:57 04/04/17 05:49 R Leg pain tolerable Some difficulty with NWB ambulation Incisions sealed Toes 1-5 with DF/PF/Sensation Able to DF/PF ankle May shower and get incisions wet Remain NON WB RLE Ok to start ankle AROM F/U 1 wk for suture removal Objective: Vital Signs Temp Pulse Resp BP Pulse Ox 36.9 C 85 19 119/72 96 04/03/17 23:29 04/03/17 23:29 04/03/17 23:29 04/03/17 23:29 04/03/17 23:29 Laboratory Results 04/02/17 04:10 04/02/17 04:10 04/02/17 04/03/17 04/04/17 05:59 05:59 05:59 Intake Total 1375 1830 1280 Output Total 150 250 300 Balance 1225 1580 980 PT 15.5 SEC (12.0-15.0) H 03/27/17 11:50 INR 1.23 (0.83-1.16) H 03/27/17 11:50 ICD10 Worksheet Patient Problems: Problems Problem Status Onset Alcohol abuse Acute Alcohol withdrawal Acute Ankle fracture Acute Abdominal pain Acute Alcohol withdrawal Acute Atrial fibrillation with RVR Acute C. difficile diarrhea Acute 09/23/16 Nausea & vomiting Acute Nausea and vomiting in adult Acute Vomiting Acute
[2017-04-04] MEDS: LEVOTHYROXINE 112 MCG TAB PO SCH (06:09)
[2017-04-04] MEDS: oxyCODONE IR 5 MG TAB PO PRN (06:09)
[2017-04-04 07:44] VITALS: BP 116/73; PULSE 75; RESP 16; TEMP 97.2; O2SAT 93
[2017-04-04] MEDS: FAMOTIDINE 20 MG TAB PO SCH (07:56)
[2017-04-04] MEDS: THIAMINE HCL 100 MG TAB PO SCH (07:56)
[2017-04-04] MEDS: DILTIAZEM XR 240 MG CAP PO SCH (07:56)
[2017-04-04] MEDS: ENOXAPARIN 40 MG/0.4 ML SYR SC SCH (07:56)
[2017-04-04] MEDS: CALCIUM CARBONATE 500 MG TAB PO SCH (07:57)
[2017-04-04] MEDS: ASCORBIC ACID 500 MG TAB PO SCH (07:57)
[2017-04-04] MEDS: SERTRALINE HCL 50 MG TAB PO SCH (07:57)
[2017-04-04] MEDS: SENNOSIDES/DOCUSATE SODIUM TAB PO SCH (07:58)
--- NOTE | 2017-04-04 09:50 | PDIAF ---
- Diagnosis Diagnosis: Tibia fracture s/p repair, Afib, Alcoholism Code Status: Full Code - Medication Management Discharge Medications: Medications to Continue on Transfer Herbals/Supplements -Info Only 1 ea PO DAILY 09/22/16 [Last Taken Unknown] Sertraline HCl [Zoloft 50mg (*)] 75 mg PO DAILY 02/28/17 [Last Taken 03/25/17] Ascorbic Acid [Vitamin C 500 mg (*)] 1,000 mg PO DAILY 03/27/17 [Last Taken Unknown] Calcium Carbonate [Oyster Shell Calcium 500 mg (*)] 500 mg PO BID 03/27/17 [ Last Taken Unknown] Levothyroxine [Synthroid 112 mcg (*)] 112 mcg PO DAILY06 03/27/17 [Last Taken ] Acetaminophen [Tylenol 325mg (*)] 650 mg PO Q4HRS PRN #40 tab 04/04/17 [Last Taken Unknown] Aspirin [Aspirin 81mg (*)] 81 mg PO HS #30 tab.chew 04/04/17 [Last Taken Unknown ] Diltiazem Xr [Dilacor Xr] 240 mg PO DAILY #30 cap 04/04/17 [Last Taken Unknown] Enoxaparin [Lovenox 40 MG (*)] 40 mg SC DAILY #14 syr 04/04/17 [Last Taken Unknown] Gabapentin [Neurontin 100 MG (*)] 100 mg PO HS #30 cap 04/04/17 [Last Taken Unknown] Methocarbamol [Robaxin 500 mg (*)] 1,000 mg PO HS #20 tab 04/04/17 [Last Taken Unknown] oxyCODONE IR [Oxycodone Ir (*)] 5 - 10 mg PO Q4HRS PRN #30 tab 04/04/17 [Last Taken Unknown] traZODone [traZODONE 50MG (*)] 50 mg PO HS PRN #30 tab 04/04/17 [Last Taken Unknown] Abalone Fisherman Antibiotics: NA Discharge Medications: Refer to the Discharge Home Medication list for PRN reason. PICC Care - Routine: N/A - Orders Services needed: Home Care, Registered Nurse, Certified Assembler Tractor, Master Integrated Program Teacher (for alcohol counseling), Physical Therapy, Occupational Therapy Home Care Face to Face: I certify that this patient was under my care and that I had the required [id number] encounter meeting the encounter requirements on the discharge day. My findings support the fact that the patient is homebound as defined in Home Care Face to Face Continued: CMS Chapter 7 Medicare Benefits Manual 30.1.1 , The condition of the patient is such that there exists a normal inability to leave home and consequently, leaving home would require a considerable and taxing effort. Isolation Type: None Oxygen: NA Diet Recommendation: no restrictions on diet (complete cessation of alcohol) Swanson: Not applicable Wound Care Instructions: OK to shower Date to Remove Sutures/Bienvenido: 04/09/17 (at Dr. Crabtree's office) Activity/Weight Bearing Restrictions: RLE [id number], OK for ankle AROM Equipment: RLE boot, remain in place - Follow Up Care Current Providers and Referrals: Patient,NotPresent [Unknown] - As per Instructions Donaldo Crabtree MD [Medical Doctor] - (follow uo 04/09. call for appt) Alice Nagel MD [Medical Doctor] - (please establish primary care with Dr. Nagel within 1-2 weeks)
--- NOTE | 2017-04-04 10:00 | PDIAF ---
- Diagnosis Diagnosis: Trimalleolar fracture s/p repair, Afib, Alcoholism Code Status: Full Code - Medication Management Discharge Medications: Medications to Continue on Transfer Herbals/Supplements -Info Only 1 ea PO DAILY 09/22/16 [Last Taken Unknown] Sertraline HCl [Zoloft 50mg (*)] 75 mg PO DAILY 02/28/17 [Last Taken 03/25/17] Ascorbic Acid [Vitamin C 500 mg (*)] 1,000 mg PO DAILY 03/27/17 [Last Taken Unknown] Calcium Carbonate [Oyster Shell Calcium 500 mg (*)] 500 mg PO BID 03/27/17 [ Last Taken Unknown] Levothyroxine [Synthroid 112 mcg (*)] 112 mcg PO DAILY06 03/27/17 [Last Taken ] Acetaminophen [Tylenol 325mg (*)] 650 mg PO Q4HRS PRN #40 tab 04/04/17 [Last Taken Unknown] Aspirin [Aspirin 81mg (*)] 81 mg PO HS #30 tab.chew 04/04/17 [Last Taken Unknown ] Diltiazem Xr [Dilacor Xr] 240 mg PO DAILY #30 cap 04/04/17 [Last Taken Unknown] Enoxaparin [Lovenox 40 MG (*)] 40 mg SC DAILY #14 syr 04/04/17 [Last Taken Unknown] Gabapentin [Neurontin 100 MG (*)] 100 mg PO HS #30 cap 04/04/17 [Last Taken Unknown] Methocarbamol [Robaxin 500 mg (*)] 1,000 mg PO HS #20 tab 04/04/17 [Last Taken Unknown] oxyCODONE IR [Oxycodone Ir (*)] 5 - 10 mg PO Q4HRS PRN #30 tab 04/04/17 [Last Taken Unknown] traZODone [traZODONE 50MG (*)] 50 mg PO HS PRN #30 tab 04/04/17 [Last Taken Unknown] Manager Research Development Antibiotics: NA Discharge Medications: Refer to the Discharge Home Medication list for PRN reason. PICC Care - Routine: N/A - Orders Services needed: Home Care, Registered Nurse, Certified Lean Specialist, Master Frit Mixer (for alcohol counseling), Physical Therapy, Occupational Therapy Home Care Face to Face: I certify that this patient was under my care and that I had the required [id number] encounter meeting the encounter requirements on the discharge day. My findings support the fact that the patient is homebound as defined in Home Care Face to Face Continued: CMS Chapter 7 Medicare Benefits Manual 30.1.1 , The condition of the patient is such that there exists a normal inability to leave home and consequently, leaving home would require a considerable and taxing effort. Isolation Type: None Oxygen: NA Diet Recommendation: no restrictions on diet (complete cessation of alcohol) Swanson: Not applicable Wound Care Instructions: OK to shower Date to Remove Sutures/Bienvenido: 04/09/17 (at Dr. Crabtree's office) Activity/Weight Bearing Restrictions: RLE [id number], OK for ankle AROM Equipment: RLE boot, remain in place - Follow Up Care Current Providers and Referrals: Alice Nagel MD [Medical Doctor] - (please establish primary care with Dr. Nagel within 1-2 weeks) Donaldo Crabtree MD [Medical Doctor] - (follow uo 04/09. call for appt) Patient,NotPresent [Unknown] - As per Instructions
--- NOTE | 2017-04-04 10:00 | PDDCSUM ---
Discharge Summary Discharge Summary: DISCHARGE SUMMARY FOLLOW-UP ITEMS: Ongoing outpatient alcohol counseling Establish primary care with Dr. Crabtree's office in 1 week DATE OF ADMISSION: 03/27/2017 DATE OF DISCHARGE: 04/04/2017 DISCHARGE DIAGNOSES: 1. Acute trimalleolar fracture 2. Acute alcohol withdrawal 3. Acute on chronic lumbar muscular back pain with radiculopathy 4. Acute hypokalemia and hypomagnesemia 5. Chronic gait instability 6. Chronic pancytopenia 7. Paroxysmal atrial fibrillation 8. Alcoholism 9. Suspected atelectasis CONSULTATIONS: Orthopedics by Dr. Donaldo Crabtree PROCEDURES / IMAGING: ORIF on 03/27/2017 CHIEF COMPLAINT: Acute ankle pain status post fall SUBJECTIVE: Patient is feeling well at time of discharge, she is feeling confident in her ability to perform activities of daily living at home PHYSICAL EXAM ON DISCHARGE: Systolic blood pressure is 100-120, heart rate 80, afebrile overnight, satting well on room air, alert awake oriented x3, no apparent distress, no tremulousness, sensation intact in the toes, movement intact in the toes, lungs are clear to auscultation bilaterally, abdomen is soft nontender nondistended with bowel sounds being present, heart rhythm is regular with no murmurs rubs or gallops LABS ON DISCHARGE: Hemoglobin 9.3, creatinine 0.6, AST 54, potassium 4.2, magnesium 1.8 HOSPITAL COURSE BY PROBLEM: The patient presented with an acute mechanical fall resulting in acute trimalleolar fracture requiring ORIF by Dr. Donaldo Crabtree. The patient underwent this procedure on March 27, and then experienced some subsequent acute alcohol withdrawal. Her alcohol withdrawal was treated with scheduled Librium and as needed Ativan. Patient was able to be weaned off of the scheduled Librium, receiving p.r.n., then not requiring any benzodiazepine at all. She does not require any further benzodiazepines at time of discharge. Her pain was well managed with oral oxycodone, and the patient is attempting to manage her pain with as little opiate as possible, given her self acknowledged history of alcoholism and potential for medication abuse. At the present time, the patient is only requiring 1-2 tabs of oxycodone daily. She will receive a limited supply of tabs at discharge, as well as a muscle relaxant at night and a nonnarcotic sleep aid. The patient did not demonstrate any evidence of worsening atrial fibrillation during this hospitalization, and she was maintained on her home dosage of diltiazem, aspirin for CVA prevention. The patient is not on systemic anticoagulation given her history of alcohol-related falls and her risk of intracranial hemorrhage. The patient will be placed on DVT prophylaxis with Lovenox 40 mg daily for the next 2 weeks, until the patient 's boot has been successfully removed and she has regained her mobility. She experienced some post-operative atelectasis 2/2 immobility and did require supplemental oxygen, but this has been weaned with use of incentive spirometer - this will be continued at home, and she is saturating well on room air prior to discharge. She will follow up with Dr. Donaldo Crabtree next week for suture removal and mobility reassessment. Her cast has been downgraded to a more manageable boot, and the patient is feeling very confident about her ability to navigate within her own home, receiving assistance from a close friend during these next 2 days. She also receive robust home care services with PT, OT, RN, VENDING MACHINE SERVICER, social work for ongoing alcohol counseling. The patient did receive alcohol counseling during this hospitalization from both myself as well as our disability case manager. The patient would like to continue that discussion with a new primary care provider, and we have recommended that she follow up with Dr. Carlos Alberto Nagel in the outpatient setting. Initially, we did recommend the patient discharged to a nursing home facility, but Medicaid has denied her application for coverage consequently, the only safe discharge plan is home with robust home care services as well as a guarantee of 24 hr assistance by her close friend, until the patient is able to be more independent. The patient reports that she is going to be supported closely by her community after discharge. DISCHARGE MEDICATIONS: Please see official discharge medication reconciliation sheet in chart , continue all home medications with the addition of as needed oxycodone, 30 tabs prescribed, as needed trazodone, scheduled Robaxin for the next 10 days at night , refills on all of her other home medications. DISCHARGE INSTRUCTIONS: Please follow up with Dr. Donaldo Crabtree next week as scheduled, please establish primary care with Dr. Burden. Please abstain from alcohol completely. TIME SPENT: Greater than 30 minutes were spent on direct patient care, as well as discharge planning and preparation.
--- NOTE | 2017-04-04 16:12 | ASMTCMCOM ---
CM Note CM Note Notes: Pt medically stable for d/c with HC RN/PT/OT/DRAPERY HEMMER AUTOMATIC/BATCH FREEZER, support/supervision with friend Ildefonso and community resources ([facility] Blue Book, [facility] book and [facility] resources). NISHA zurita scheduled for 12:30, [facility] billed. [facility] orders to be obtained by [facility] in [facility]. Pt has follow up with Dr. Neff and will schedule an appointment to get established with a specific PCP she has in mind, pt declined appointment with [facility]. Date Signed: 04/04/2017 04:11 PM Electronically Signed By:JOSE Dsouza
--- NOTE | 2017-04-04 16:12 | ASDISCHSUM ---
Discharge Information Plan Status:Home with Home Health Medically Cleared to Leave: Discharge Date:04/04/2017 12:51 PM CM D/C Disposition:Home Health Service ADT D/C Disposition:Home Health Service Projected Discharge Date:04/03/2017 11:00 AM Transportation at D/C:ALS/BLS Discharge Delay Reason: Follow-Up Date:04/03/2017 11:00 AM Discharge Slot: Final Diagnosis: Placement Information Referral Type:*Chcf/SNF Referral ID:[id number] Provider Name: Address 1: Phone Number: Address 2: Fax Number: City: Selection Factors: State: Referral Type:*Home Health Care Services Referral ID:[id number] Provider Name:[facility] Address 1:[address] Address 2: City:[place] Selection Factors: State:[place] Patient Contact Information Contact Name:BATSHEVA Relationship:Friend Address: Work Phone: City: [facility] Phone: State/Zip Code: Email: Financial Information Financial Class: Primary Plan Desc:MEDICAID [facility]ALTH [facility] Primary Plan Number:[id number] Secondary Plan Desc: Secondary Plan Number: Assessment Information [facility] SKYLAR Progress Note CM Note CM Note Notes: Pt here for a fractured right ankle after falling d/t etoh. She lives alone and has a significant history of alcohol abuse. Pt had surgery today on ankle and is supposed to be non weight bearing on that leg but seems to have poor insight at this time. SKYLAR went to speak to pt re; PT/OT recommendations for snf. Pt was standing up bearing weight on both legs, the chair alarm was going off and she was very agitated and angry that CM would not hold her in case she fell while getting back in bed. SKYLAR notified RN who helped her get back in bed. Will try and talk to her about snf tomorrow. Pt has Medicaid and will need to agree to the 30 day stay at SNF but unsafe to be home alone. DC Plan: TBD Date Signed: 03/28/2017 04:40 PM Electronically Signed By:Minna Delgado RN CAGE Questionnaire CAGE Do you feel you ought to Answers: Yes cut down on your drinking or drug use? Do people annoy you by Answers: Yes criticizing your drinking or drug use? Do you feel guilty about Answers: Yes your drinking or drug use? Do you drink or use drugs Answers: Yes first thing in the morning (Eye Dethistler Operator)? Date Signed: 03/29/2017 10:17 AM Electronically Signed By:Tamika Stanley RN LACE LACE Length of stay for Answers: 2 days current admission Acuity / Level of Care Answers: Was the patient admitted to hospital via the emergency department? Yes: Comorbidities - select Answers: Moderate or severe liver all that apply disease or renal disease Emergency dept visits in Answers: 3 last 6 months Score: 12 Date Signed: 03/29/2017 10:18 AM Electronically Signed By:Tamika Stanley RN [facility] CM Progress Note CM Note CM Note Notes: Met with patient to review dc plan of care. She is confused and belligerent She verbally lashes out when questioned about her alcohol intake. Refuses to commit to 30 stay at SNF. She knows she is unable to bear weight and is frightened about her prospects. Worried about a dog at home then later recalls her pet is a black cat. She denies having family. States she might have friend she could stay with but given her alcohol problem doubt this is likely solution to her needs. May need to have cog evaluation to determine competency to move forward from here. CM to follow. Date Signed: 03/29/2017 10:23 AM Electronically Signed By:Tamika Stanley RN [facility] CM Progress Note CM Note CM Note Notes: Pt agreeable to Medicaid SNF 30 day stay. ULTC 100 submitted to [facility] and [employer] alerted for LTC rodrigo. Pt would like SNF in [place] close to friend Renay. Referrals sent to [facility], [facility], [facility] and [facility] Ponce. CM to follow. Date Signed: 03/30/2017 03:17 PM Electronically Signed By:JOSE Dsouza [facility] CM Progress Note CM Note CM Note Notes: Pt has been screened by [employer] for LT Medicaid for SNF placement; per Dorcas from [employer], pt is over assets and therefore will not qualify for LT M"caid. Discussed this w/pt who was disappointed that this means she probably would not be able to go to SNF rehab. Pt did ask how much it would be out of pocket to go to rehab; sr blue book given that provides room and board rates and spoke to Janessa at [facility] and asked how much she would pay out of pocket for therapy and she said $50 for every 15 min of therapy; gave this info to pt. This may be too financially difficult for pt. She is going to talk with her friend Laurie who she said she could maybe pay to stay with her and help her out. If she does go home she would need [facility] services and pt would like to use [facility]. Also discussed alcohol treatment resources and pt was open to receiving these prior to dc; she said she has already been looking into some on her own prior to hospitalization but that is hard with Medicaid. She seems to be very willing to talk about it and open to resources. She said she would also like to talk with Minna Nieves. I left voicemail w/Minna. Also, discussed with RN and PT as we will need to determine what pt's needs will be (ie, 24 hr care or not, DME she will need, etc...) if she is to dc home. CM will follow. Date Signed: 04/02/2017 04:42 PM Electronically Signed By:Maris Martinez RN [facility] CM Progress Note CM Note CM Note Notes: Met with patient to review plan of care. She does not qualify for terminal system operator care benefits due to assets Her plan was to hire a friend but that has also fallen through she has appealed to all her contact with no results so far. I have encouraged her to call providers in the booklet to see if she is able to hire a caregiver at this point. Likely ready for discharge soon. CM to follow. Date Signed: 04/03/2017 03:10 PM Electronically Signed By:Tamika Stanley RN [facility] CM Progress Note CM Note CM Note Notes: Pt medically stable for d/c with [facility] RN/PT/OT/MARIO/JOSE, support/supervision with friend Ildefonso and community resources ([employer], [employer] book and [employer]). NISHA uzrita scheduled for 12:30, [facility] billed. [facility] orders to be obtained by [facility] in [place]. Pt has follow up with Dr. Neff and will schedule an appointment to get established with a specific PCP she has in mind, pt declined appointment with [facility]. Date Signed: 04/04/2017 04:11 PM Electronically Signed By:JOSE Dsouza Intervention Information
== END 2017-04-04 12:51 | disposition home health service (06) | DRG 493 ==
LOC: EDUNIT# → F3N 20:41
PROVIDERS: ADMIT Internal Medicine; ATTEND Internal Medicine
PROC: 0QSG04Z Reposition Right Tibia with Internal Fixation Device, Open Approach (ICD-10-PCS; principal; 2017-03-27 16:00)
PROC: 0QHJ04Z Insertion of Internal Fixation Device into Right Fibula, Open Approach (ICD-10-PCS; principal; 2017-03-27 16:00)
DX: S82.391A Other fracture of lower end of right tibia, initial encounter for closed fracture (principal); S82.831A Other fracture of upper and lower end of right fibula, initial encounter for closed fracture; W10.9XXA Fall (on) (from) unspecified stairs and steps, initial encounter; Y92.009 Unspecified place in unspecified non-institutional (private) residence as the place of occurrence of the external cause; F10.239 Alcohol dependence with withdrawal, unspecified; D61.818 Other pancytopenia; D68.4 Acquired coagulation factor deficiency; M54.16 Radiculopathy, lumbar region; E87.6 Hypokalemia; E83.42 Hypomagnesemia; R26.9 Unspecified abnormalities of gait and mobility; I48.0 Paroxysmal atrial fibrillation; E03.9 Hypothyroidism, unspecified; R26.81 Unsteadiness on feet; R60.0 Localized edema; Z79.82 Long term (current) use of aspirin
CPT/HCPCS: 96365; 96374; 97110-GP; 97116-GP; 97161-GP; 97166-GO; 97530-GO; 97530-GP; 97535-GO; C1713; C1751; G8987-GO-CJ; G8987-GO-CK; G8988-GO-CI; G8989-GO-CJ; J0690; J0735; J1100; J1170; J1650; J2060; J2250; J2405; J2704; J3010; J3475

== ENCOUNTER 2017-04-20 02:17 | Emergency (ER) | payer MEDICAID ==
--- NOTE | 2017-04-20 02:27 | EDPHY ---
H & P Stated Complaint: fell yesterday, wants leg checked Time Seen by Provider: 04/20/17 02:21 HPI/ROS: HPI The patient presents with leg pain after a fall yesterday. She says that she fell down 7 stairs when she was going to change the laundry. She says she no she is not supposed to be doing this stairs but really wanted to go. She fell backwards and hit her right leg. She is currently recovering from ORIF of her right tibia and fibula after a fall. She says she has had progressive leg pain since his fall down the stairs yesterday. The pain is aching and throughout her leg. She is brought in by ambulance. She says she has been drinking alcohol. She has in-home care from 8:00 a.m. to 5:00 p.m. daily and they help her around the house and with her medications. She is currently taking Lovenox and says her last dose is this morning. REVIEW OF SYSTEMS Constitutional: No fever, no chills. Eyes: No discharge. ENT: No sore throat. Cardiovascular: No chest pain, no palpitations. Respiratory: No cough, no shortness of breath. Gastrointestinal: No abdominal pain, no vomiting. Genitourinary: No hematuria. Musculoskeletal: No back pain. Skin: No rashes. Neurological: No headache. PMHx: Recent right-sided tib-fib fracture in CAM walker currently, history of atrial fibrillation, history of pancreatitis Soc Hx: Chronic alcohol abuse PHYSICAL General Appearance: Alert, no distress Eyes: Pupils equal and round no pallor or injection ENT, Mouth: Mucous membranes moist Respiratory: There are no retractions, lungs are clear to auscultation Cardiovascular: Regular rate and rhythm Gastrointestinal: Abdomen is soft and non-tender, no masses, bowel sounds normal Neurological: A&O, moves all extremities Skin: Warm and dry, no rashes Musculoskeletal: Neck is supple non tender Extremities: Right leg is slightly edematous in the anterior portion, it is slightly tender to palpation, her incisions have no surrounding erythema, warmth , edema Psychiatric: Patient is oriented X 3, there is no agitation Source: Patient, EMS Exam Limitations: Intoxication - Personal History Current Tetanus/Diphtheria Vaccine: Unsure Current Tetanus Diphtheria and Acellular Pertussis (TDAP): Unsure Tetanus Vaccine Date: 2014 - Medical/Surgical History Hx Asthma: No Hx Chronic Respiratory Disease: No Hx Diabetes: No Hx Cardiac Disease: Yes Hx Renal Disease: No Hx Cirrhosis: No Hx Alcoholism: Yes Hx HIV/AIDS: No Hx Splenectomy or Spleen Trauma: No Other PMH: PMHx: Alcoholism, degenerative disc disease, osteoarthritis, scoliosis, heart murmur, a-fib, C difficile-Dec 2015, hx withdrawal, pancreatitis. PSHx: tonsillectomy - Social History Smoking Status: Never smoked Constitutional: Initial Vital Signs Temperature (C) 37 C 04/20/17 02:22 Heart Rate 102 H 04/20/17 02:22 Respiratory Rate 18 04/20/17 02:22 Blood Pressure 117/71 04/20/17 02:22 O2 Sat (%) 97 04/20/17 02:22 O2 Delivery Mode Room Air Allergies/Adverse Reactions: Sulfa (Sulfonamide Antibiotics) Allergy (Mild, Verified 03/27/17 10:39) Rash Home Medications: Medication Instructions Recorded Herbals/Supplements -Info Only 1 ea PO DAILY 09/22/16 Sertraline HCl [Zoloft 50mg (*)] 75 mg PO DAILY 02/28/17 Ascorbic Acid [Vitamin C 500 mg 1,000 mg PO DAILY 03/27/17 (*)] Calcium Carbonate [Oyster Shell 500 mg PO BID 03/27/17 Calcium 500 mg (*)] Levothyroxine [Synthroid 112 mcg 112 mcg PO DAILY06 03/27/17 (*)] Acetaminophen [Tylenol 325mg (*)] 650 mg PO Q4HRS PRN #40 tab 04/04/17 Aspirin [Aspirin 81mg (*)] 81 mg PO HS #30 tab.chew 04/04/17 Diltiazem Xr [Dilacor Xr] 240 mg PO DAILY #30 cap 04/04/17 Gabapentin [Neurontin 100 MG (*)] 100 mg PO HS #30 cap 04/04/17 Methocarbamol [Robaxin 500 mg (*)] 1,000 mg PO HS #20 tab 04/04/17 oxyCODONE IR [Oxycodone Ir (*)] 5 - 10 mg PO Q4HRS PRN #30 tab 04/04/17 traZODone [traZODONE 50MG (*)] 50 mg PO HS PRN #30 tab 04/04/17 Rivaroxaban [Xarelto 15mg (*)] 15 mg PO DAILY 21 Days tab 04/20/17 Rivaroxaban [Xarelto] 20 mg PO DAILY 68 Days tab 04/20/17 Medical Decision Making - Diagnostics Imaging Results: Right lower extremity DVT study demonstrates nonocclusive femoral DVT, discussed with Dr. Kevin of Radiology. Differential Diagnosis: This is a 61-year-old female, recently sustained right-sided tib-fib fracture with ORIF performed, currently in CAM walking boot with walker at home. She has home care helping her recover. She was offered a snf when she left the hospital but she declined. She had a fall down 7 stairs yesterday. She is complaining of worsening right-sided leg pain ever since. On exam, her leg is tender with small amount of edema. Is in the emergency department, patient was given pain medication and prophylactic medication for any alcohol withdrawal. Ultrasound of her leg was performed which did show nonocclusive right femoral DVT. She is currently on Lovenox. I consulted with the hospitalist Dr. Vallejo about this. We discussed risks and benefits of anticoagulation. It does not seem that she would benefit from inpatient hospitalization at this time, as treatment can be initiated in the emergency department and continued as an outpatient. She would benefit from either Lovenox twice daily therapeutic dosing or Xarelto. I feel she would be a better candidate for Xarelto given easier dosing. She is in agreement with this plan. She does have home care currently, but she is a fall risk. However risk of pulmonary embolism likely outweighs fall risk on anticoagulation. I have discussed this with her. I have called her in-home care provider and left a message with her about the patient's new diagnosis. The patient is still not willing to go to a snf. I have also put in a note for our nurse case manager. She will need to get the prescription, though I have given her her 1st dose here. - Data Points Laboratory Results: Laboratory Results 04/20/17 04:43 04/20/17 04:43 Medications Given: Discontinued Medications Chlordiazepoxide HCl (Librium) 50 mg PO EDNOW ONE Stop: 04/20/17 03:07 Last Admin: 04/20/17 03:11 Dose: 50 mg Lorazepam (Ativan Injection) 1 mg IVP EDNOW ONE Stop: 04/20/17 05:27 Last Admin: 04/20/17 05:31 Dose: 1 mg Rivaroxaban (Xarelto) 15 mg PO EDNOW ONE Stop: 04/20/17 05:38 Last Admin: 04/20/17 05:44 Dose: 15 mg Departure - Departure Disposition: Home, Routine, Self-Care Clinical Impression: DVT (deep venous thrombosis), Tibia/fibula fracture Condition: Good Instructions: Deep Vein Thrombosis (ED) Additional Instructions: Please take the new medication as prescribed. You should follow up with your regular doctors as planned. Keep your boot on at all times. Referrals: Donaldo Crabtree MD [Medical Doctor] - As per Instructions Prescriptions: Rivaroxaban [Xarelto 15mg (*)] 15 mg PO DAILY 21 Days tab Rivaroxaban [Xarelto] 20 mg PO DAILY 68 Days tab
[2017-04-20] MEDS ORDERED: chlordiazePOXIDE 25 MG CAP PO ONE (03:06)
[2017-04-20 04:51] LABS: PLATELET COUNT 221 10^3/uL (150-400)
[2017-04-20 05:03] LABS: INR 1.05 (0.83-1.16); PROTIME(PATIENT) 13.9 SEC (12.0-15.0)
[2017-04-20] MEDS ORDERED: LORazepam 2 MG/ML INJ IVP ONE (05:26)
[2017-04-20] MEDS ORDERED: RIVAROXABAN 15 MG TAB PO ONE (05:37)
[2017-04-20 07:25] VITALS: BP 114/67; PULSE 97; RESP 18; TEMP 98.4; O2SAT 95
--- NOTE | 2017-04-20 17:33 | ASMTCMCOM ---
CM Note CM Note Notes: Patient presented to the ED via EMS for right leg pain after she fell down 7 stairs at home yesterday. Patient has been diagnosed with DVT. Patient to be discharged home and to follow up outpatient. Patient is being followed by [facility] ([id number]); spoke with HEMANTH Denis with [facility], updated on patient's ED visit and new Rx for Xarelto. (patient recently finished her Lovenox Rxn from previous [facility] admission related to right tib/fib ORIF). Cira states she followed up with patient earlier today after she was discharged home from the ED. Patient has been non-compliant with following home safety precautions (such as not using the stairs). Patient also has non-skilled home care help through [facility]. Cira states patient refuses 20/11 non-skilled HC. Cira anticipate [facility] may have to discharge patient from their care if she continues to be non-compliant and refuse additional help or SNF placement. CM available for further assistance. Date Signed: 04/20/2017 05:33 PM Electronically Signed By:Marjorie Harrison RN
--- NOTE | 2017-04-20 17:42 | ASDISCHSUM ---
Discharge Information Plan Status:Home with Home Health Medically Cleared to Leave: Discharge Date:04/20/2017 09:40 AM CM D/C Disposition:Home Health Service ADT D/C Disposition:Home, Routine, Self-Care Projected Discharge Date:04/20/2017 09:40 AM Transportation at D/C:Friend Discharge Delay Reason: Follow-Up Date:04/20/2017 09:40 AM Discharge Slot: Final Diagnosis: Placement Information Patient Contact Information Contact Name:SOHANLIDIAALESSANDRO Relationship:Friend Address: Work Phone: City: [place] Phone: State/[place] [employer] Code: Email: Financial Information Financial Class: Primary Plan Desc:MEDICAID HEALTH FIRST STILL OPERATOR BATCH OR CONTINUOUS Primary Plan Number:[id number] Secondary Plan Desc: Secondary Plan Number: Assessment Information [facility] CM Progress Note CM Note CM Note Notes: Patient presented to the ED via EMS for right leg pain after she fell down 7 stairs at home yesterday. Patient has been diagnosed with DVT. Patient to be discharged home and to follow up outpatient. Patient is being followed by [facility] ([id number]); spoke with HEMANTH Denis with [facility], updated on patient's ED visit and new Rx for Xarelto. (patient recently finished her Lovenox Rxn from previous [facility] admission related to right tib/fib ORIF). Cira states she followed up with patient earlier today after she was discharged home from the ED. Patient has been non-compliant with following home safety precautions (such as not using the stairs). Patient also has non-skilled home care help through [facility]. Cira states patient refuses / non-skilled HC. Cira anticipate [facility] may have to discharge patient from their care if she continues to be non-compliant and refuse additional help or SNF placement. CM available for further assistance. Date Signed: 04/20/2017 05:33 PM Electronically Signed By:Marjorie Harrison RN LACE LACE Acuity / Level of Care Answers: No. Emergency dept visits in Answers: 4+ last 6 months Score: 4 Date Signed: 04/20/2017 05:40 PM Electronically Signed By:Marjorie Harrison RN Intervention Information
== END 2017-04-20 09:40 | disposition home or self-care (01) ==
LOC: EDUNIT#
DX: I82.401 Acute embolism and thrombosis of unspecified deep veins of right lower extremity (principal); Z79.82 Long term (current) use of aspirin; Z87.81 Personal history of (healed) traumatic fracture; W10.8XXA Fall (on) (from) other stairs and steps, initial encounter; Y99.8 Other external cause status; Y93.89 Activity, other specified
CPT/HCPCS: 96374; J2060

== ENCOUNTER 2017-04-23 21:09 | Emergency (ER) | payer MEDICAID ==
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
[2017-04-23] MEDS ORDERED: ENOXAPARIN 80 MG/0.8 ML SYR SC ONE (22:02)
[2017-04-23] MEDS ORDERED: HYDROCODONE/APAP 5/325 TAB PO ONE (22:29)
[2017-04-23] MEDS ORDERED: LORazepam 1 MG TAB PO ONE (22:53)
[2017-04-24 00:01] VITALS: BP 116/76; PULSE 64; RESP 15; TEMP 97.9; O2SAT 94
== END 2017-04-24 00:13 | disposition home or self-care (01) ==
LOC: EDUNIT#
DX: I82.411 Acute embolism and thrombosis of right femoral vein (principal); Z79.82 Long term (current) use of aspirin; Z96.661 Presence of right artificial ankle joint; Y04.0XXA Assault by unarmed brawl or fight, initial encounter; Y93.89 Activity, other specified
CPT/HCPCS: J1650

== ENCOUNTER 2017-04-25 16:41 | Inpatient (IN) | payer MEDICAID ==
--- NOTE | 2017-04-25 18:09 | EDPHY ---
H & P Stated Complaint: black liquid stools HPI/ROS: CHIEF COMPLAINT: Dark stool HISTORY OF PRESENT ILLNESS: This is a 61-year-old female who has been taking 15 mg of Xarelto once daily for the past week for treatment of DVT (postop). She arrives today concerned about 2 unusual bowel movements that she had this morning. hse had a loose stool that was green/black in color. It was quite watery. This afternoon, about 3 hr ago, she had a loose black stool. She was seen by her primary care physician who did a rectal exam--Hemoccult was reportedly positive for blood. She was referred to the emergency room. She does not feel lightheaded. She has not had chest pain or shortness of breath. She is not having diarrhea. REVIEW OF SYSTEMS: A ten point review of systems was performed and is negative with the exception of the items mentioned in the HPI. Past medical history: 1. History of alcohol abuse 2. Atrial fibrillation 3. Pancreatitis 4. C dif December 2015 5. DVT right lower extremity Past surgical history: ORIF tib-fib/ankle fracture on 03/26/2017 Tonsillectomy Social history: General Appearance: Alert. Vital signs reviewed. Eyes: Pupils equal and round, no conjunctival injection, no discharge. Anicteric. ENT, Mouth: Mucous membranes are moist, no oropharyngeal erythema or edema. Neck: No lymphadenopathy, supple. Respiratory: Lungs are clear to auscultation; no wheezes, rales, or rhonchi. Cardiovascular: Regular rate and rhythm; no murmur, rub, or gallop. Gastrointestinal: Abdomen is soft and nontender, no masses or organomegaly, bowel sounds normal Rectal: Nontender. No masses appreciated. There is are flecks of what appeared to be blood on the examining glove, no obvious stool on the glove. Skin: Warm and dry, no rashes on exposed skin, normal color. Back: Nontender to palpation over the thoracolumbar spine. No CVAT. Extremities: No lower extremity edema, no calf tenderness or swelling. Neurological: Alert and oriented. Moving all four extremities easily and equally. Right lower extremity in orthopedic boot. Psychiatric: Normal affect. - Personal History Current Tetanus/Diphtheria Vaccine: Yes Tetanus Vaccine Date: 2014 - Medical/Surgical History Hx Asthma: No Hx Chronic Respiratory Disease: No Hx Diabetes: No Hx Cardiac Disease: Yes Hx Renal Disease: No Hx Cirrhosis: No Hx Alcoholism: Yes Hx HIV/AIDS: No Hx Splenectomy or Spleen Trauma: No Other PMH: PMHx: Alcoholism, degenerative disc disease, osteoarthritis, scoliosis, heart murmur, a-fib, C difficile-Dec 2015, hx withdrawal, pancreatitis, R leg fx. PSHx: tonsillectomy - Social History Smoking Status: Never smoked Constitutional: Initial Vital Signs Temperature (C) 37.1 C 04/25/17 16:47 Heart Rate 90 04/25/17 16:47 Respiratory Rate 16 04/25/17 16:47 Blood Pressure 127/67 H 04/25/17 16:47 O2 Sat (%) 96 04/25/17 16:47 O2 Delivery Mode Nasal Cannula O2 (L/minute) 0.5 Allergies/Adverse Reactions: Sulfa (Sulfonamide Antibiotics) Allergy (Mild, Verified 04/25/17 16:46) Rash Home Medications: Medication Instructions Recorded Herbals/Supplements -Info Only 1 ea PO DAILY 09/22/16 Sertraline HCl [Zoloft 50mg (*)] 75 mg PO DAILY 02/28/17 Ascorbic Acid [Vitamin C 500 mg 1,000 mg PO DAILY 03/27/17 (*)] Calcium Carbonate [Oyster Shell 500 mg PO BID 03/27/17 Calcium 500 mg (*)] Levothyroxine [Synthroid 112 mcg 112 mcg PO DAILY06 03/27/17 (*)] Acetaminophen [Tylenol 325mg (*)] 650 mg PO Q4HRS PRN #40 tab 04/04/17 Aspirin [Aspirin 81mg (*)] 81 mg PO HS #30 tab.chew 04/04/17 Diltiazem Xr [Dilacor Xr] 240 mg PO DAILY #30 cap 04/04/17 Gabapentin [Neurontin 100 MG (*)] 100 mg PO HS #30 cap 04/04/17 Methocarbamol [Robaxin 500 mg (*)] 1,000 mg PO HS #20 tab 04/04/17 oxyCODONE IR [Oxycodone Ir (*)] 5 - 10 mg PO Q4HRS PRN #30 tab 04/04/17 traZODone [traZODONE 50MG (*)] 50 mg PO HS PRN #30 tab 04/04/17 Rivaroxaban [Xarelto 15mg (*)] 15 mg PO DAILY 21 Days tab 04/20/17 Rivaroxaban [Xarelto] 20 mg PO DAILY 68 Days tab 04/20/17 Herbals/Supplements -Info Only 1 ea PO DAILY 04/25/17 Medical Decision Making ED Course/Re-evaluation: 61 year old female on Xarelto for post op DVT and with h/o ETOH abuse who presents with melena; presumed UGI bleeding. She is hemodynamically stable in ED. H/H 12.8/38.3. INR 1.48. She is being admitted to the hospitalist service with GI consult. Differential Diagnosis: DDX of UGI bleeding including but not limited to varices, gastritis, PUD, AVM, coagulopathy secondary to medication. - Data Points Laboratory Results: Laboratory Results 04/27/17 05:20 04/27/17 05:20 Medications Given: Acetaminophen (Tylenol) 650 mg PO Q4HRS PRN PRN Reason: Pain, Mild/Fever, Can Take PO Stop: 10/22/17 22:27 Last Admin: 04/30/17 22:35 Dose: 650 mg Calcium Carbonate (Oyster Shell Calcium) 500 mg PO BID [facility] Stop: 10/23/17 08:59 Last Admin: 05/03/17 09:18 Dose: 500 mg Diltiazem HCl (Dilacor Xr) 240 mg PO DAILY [facility] Stop: 10/23/17 08:59 Last Admin: 05/03/17 09:19 Dose: 240 mg Ferrous Sulfate (Slow Fe) 140 mg PO DAILY [facility] Stop: 10/29/17 08:59 Last Admin: 05/03/17 09:18 Dose: 140 mg Gabapentin (Neurontin) 100 mg PO HS [facility] Stop: 10/23/17 20:59 Last Admin: 05/02/17 19:36 Dose: 100 mg Heparin Sodium (Porcine) (Heparin Injection) 0 unit IVP PRN PRN; Protocol PRN Reason: Bolus per protocol Stop: 10/24/17 17:57 Last Admin: 04/29/17 14:36 Dose: 1,071 units Hydromorphone HCl (Dilaudid) 0.5 - 1 mg IVP Q3HRS PRN PRN Reason: Pain, Severe Unable to Take PO Stop: 05/12/17 23:12 Last Admin: 05/03/17 08:23 Dose: 1 mg Heparin Sodium (Porcine) (Heparin 50 Units/Ml (Premix)) 500 mls @ 0 mls/hr IV CONT [facility]; Per Protocol PRN Reason: Protocol Stop: 10/24/17 17:59 Last Admin: 05/02/17 12:33 Dose: 500 mls Levothyroxine Sodium (Synthroid) 112 mcg PO DAILY06 [facility] Stop: 10/24/17 05:59 Last Admin: 05/03/17 04:28 Dose: 112 mcg Lorazepam (Ativan Injection) 0.5 - 1 mg IVP Q8HRS PRN PRN Reason: Anxiety, Unable to Take PO Stop: 10/22/17 22:27 Last Admin: 05/02/17 20:41 Dose: 1 mg Methocarbamol (Robaxin) 1,000 mg PO HS [facility] Stop: 10/23/17 20:59 Last Admin: 05/02/17 19:35 Dose: 1,000 mg Nitrofurantoin Macrocrystals (Macrobid) 100 mg PO BID [facility] PRN Reason: Protocol Stop: 05/04/17 08:59 Last Admin: 05/03/17 09:18 Dose: 100 mg Ondansetron HCl (Zofran) 4 mg IVP Q4HRS PRN PRN Reason: Nausea/Vomiting, Can't Take PO Stop: 10/22/17 22:27 Last Admin: 05/02/17 20:46 Dose: 4 mg Oxycodone HCl (Oxycodone Ir) 5 - 10 mg PO Q4HRS PRN PRN Reason: Pain, Severe Able to Take PO Stop: 05/06/17 08:29 Last Admin: 05/03/17 04:27 Dose: 10 mg Pantoprazole Sodium (Protonix) 40 mg PO BID [facility] Stop: 10/26/17 20:59 Last Admin: 05/03/17 09:18 Dose: 40 mg Sertraline HCl (Zoloft) 100 mg PO DAILY [facility] Stop: 10/28/17 08:59 Last Admin: 05/03/17 09:19 Dose: 100 mg Sucralfate (Carafate) 1 gm PO ACHS [facility] Stop: 10/27/17 20:59 Last Admin: 05/03/17 09:19 Dose: 1 gm Warfarin Sodium (Message-Coumadin Daily Order) 1 ea MISC DAILY@1500 [facility] Stop: 10/28/17 14:59 Last Admin: 05/02/17 15:30 Dose: Not Given Discontinued Medications Acetaminophen (Tylenol) 325 mg PO ONCE ONE Stop: 04/28/17 06:12 Last Admin: 04/28/17 06:25 Dose: 325 mg Heparin Sodium (Porcine) (Heparin Injection) 0 unit IVP ONCE ONE PRN Reason: Protocol Stop: 04/27/17 17:59 Last Admin: 04/27/17 19:56 Dose: 4,300 units Hydromorphone HCl (Dilaudid) 0.2 - 0.4 mg IVP Q4HRS PRN PRN Reason: Pain, Severe Unable to Take PO Stop: 05/05/17 22:27 Last Admin: 04/28/17 14:39 Dose: 0.4 mg Lactated Ringer's (Lr) 1,000 mls @ 75 mls/hr IV CONT [facility] Stop: 10/23/17 00:29 Last Admin: 04/27/17 00:06 Dose: 1,000 mls Thiamine HCl 500 mg/ Sodium (Chloride) 105 mls @ 210 mls/hr IV DAILY [facility] Stop: 04/29/17 00:29 Last Admin: 04/28/17 09:45 Dose: 105 mls Magnesium Sulfate (Magnesium Sulf 2 Gm (Premix)) 50 mls @ 50 mls/hr IV ONCE ONE Stop: 04/26/17 16:29 Last Admin: 04/26/17 16:29 Dose: 50 mls Ceftriaxone Sodium/Dextrose (Rocephin 1 Gm (Premix)) 50 mls @ 100 mls/hr IV DAILY06 [facility] PRN Reason: Protocol Stop: 05/28/17 06:29 Last Admin: 05/01/17 05:12 Dose: 50 mls Magnesium Sulfate (Magnesium Sulf 2 Gm (Premix)) 50 mls @ 50 mls/hr IV ONCE ONE Stop: 05/01/17 10:01 Last Admin: 05/01/17 10:13 Dose: 50 mls Magnesium Sulfate/Dextrose (Magnesium Sulf 1 Gm (Premix)) 100 mls @ 100 mls/hr IV ONCE ONE Stop: 05/02/17 07:34 Last Admin: 05/02/17 08:07 Dose: 100 mls Tranexamic Acid 1,000 mg/ (Sodium Chloride) 110 mls @ 660 mls/hr IV ONCE ONE Stop: 05/03/17 00:17 Last Admin: 05/03/17 00:43 Dose: 110 mls Metoprolol Tartrate (Lopressor Injection) 5 mg IVP ONCE ONE Stop: 04/28/17 08:14 Last Admin: 04/28/17 08:05 Dose: 5 mg Morphine Sulfate (Morphine) 2 mg IVP ONCE ONE Stop: 05/02/17 20:51 Last Admin: 05/02/17 21:05 Dose: 2 mg Pantoprazole Sodium (Protonix) 40 mg IVP EDNOW ONE Stop: 04/25/17 22:40 Last Admin: 04/25/17 23:27 Dose: 40 mg Pantoprazole Sodium (Protonix) 40 mg IVP BID [facility] Stop: 10/23/17 08:59 Last Admin: 04/29/17 08:57 Dose: 40 mg Potassium Chloride (Klor-Con) 40 meq PO ONCE ONE PRN Reason: Protocol Stop: 04/29/17 16:27 Last Admin: 04/29/17 16:37 Dose: 40 meq Potassium Chloride (Klor-Con) 30 meq PO ONCE ONE PRN Reason: Protocol Stop: 04/29/17 19:16 Last Admin: 04/29/17 20:20 Dose: 30 meq Potassium Chloride (Klor-Con) 10 - 40 meq PO ONCE ONE PRN Reason: Protocol Stop: 04/30/17 07:16 Last Admin: 04/30/17 08:28 Dose: 10 meq Potassium Chloride (Klor-Con) 10 - 40 meq PO ONCE ONE PRN Reason: Protocol Stop: 04/30/17 20:33 Last Admin: 04/30/17 21:08 Dose: 10 meq Potassium Chloride (Klor-Con) 10 - 40 meq PO ONCE ONE PRN Reason: Protocol Stop: 05/01/17 07:37 Last Admin: 05/01/17 10:22 Dose: 10 meq Protamine Sulfate (Protamine Sulfate) 25 mg IVP ONCE ONE Stop: 05/03/17 00:09 Last Admin: 05/03/17 00:39 Dose: 25 mg Sertraline HCl (Zoloft) 75 mg PO DAILY [facility] Stop: 10/23/17 08:59 Last Admin: 04/30/17 08:28 Dose: 75 mg Warfarin Sodium (Coumadin) 3 mg PO ONCE@1600 ONE Stop: 04/30/17 16:01 Last Admin: 04/30/17 15:57 Dose: 3 mg Warfarin Sodium (Coumadin) 3 mg PO ONCE@1600 ONE Stop: 05/01/17 16:01 Last Admin: 05/01/17 16:54 Dose: 3 mg Warfarin Sodium (Coumadin) 1.5 mg PO ONCE@1600 ONE Stop: 05/02/17 16:01 Last Admin: 05/02/17 15:41 Dose: 1.5 mg Departure - Departure Disposition: [facility] Inpatient Acute Clinical Impression: GI bleed Qualifiers: GI bleed type/associated pathology: melena Qualified Code(s): K92.1 - Melena Condition: Good Physician Review and Approval Statement: 04/25/17 18:09 Portions of this note were transcribed by the general medical practitioner. I, Dr. Donna Nava, personally performed the history, physical exam, and medical decision- making; and confirmed the accuracy of the information in the transcribed note.
[2017-04-25 18:55] LABS: PLATELET COUNT 181 10^3/uL (150-400)
[2017-04-25 19:05] LABS: INR 1.48 (0.83-1.16); PROTIME(PATIENT) 18.1 SEC (12.0-15.0)
[2017-04-25] MEDS ORDERED: PANTOPRAZOLE SODIUM 40 MG VIAL IVP ONE (22:39)
--- NOTE | 2017-04-25 23:52 | PDGENHP ---
History and Physical - Chief Complaint black stools - History of Present Illness Source - patient provides history and appears reliable. EMR reviewed and case discussed with accepting provider. HPI - Pleasant 61 yo F with pmx significant for atrial fibrillation, recent DVT right LE, etoh with hx pancreatitis and coagulopathy,hypothyroidism, chronic pain, depression who presents to the ED today with complaint of dark tarry stools x 1 day. Patient denies any abdominal pain. She did experience some nausea without vomiting. Patient developed green/black tarry stools in AM and was evaluated by PCP found to have a positive occult stool. Patient was referred to ED for further evaluation. Patient was recently started on xarelto earlier in the month for DVT in right LE. She is s/p ORIF for tib fib and bimalleolar fractures on the Right. patient repors persistent R>L edema. Patient denies any SOB/CP/palpitations/presyncope. Last does of Xarelto taken evening prior to admission. History Information - Allergies/Home Medication List Allergies/Adverse Reactions: Sulfa (Sulfonamide Antibiotics) Allergy (Mild, Verified 04/25/17 16:46) Rash Home Medications: Herbals/Supplements -Info Only 1 ea PO DAILY 09/22/16 [Last Taken Unknown] Sertraline HCl [Zoloft 50mg (*)] 75 mg PO DAILY 02/28/17 [Last Taken 04/25/17] Ascorbic Acid [Vitamin C 500 mg (*)] 1,000 mg PO DAILY 03/27/17 [Last Taken Unknown] Calcium Carbonate [Oyster Shell Calcium 500 mg (*)] 500 mg PO BID 03/27/17 [ Last Taken Unknown] Levothyroxine [Synthroid 112 mcg (*)] 112 mcg PO DAILY06 03/27/17 [Last Taken ] Herbals/Supplements -Info Only 1 ea PO DAILY 04/25/17 [Last Taken Unknown] I have personally reviewed and updated: family history, medical history, social history, surgical history - Past Medical History Additional medical history: atrial fibrillation. etoh dependence with history of pancreatitis, withdrawal seizures. C diff 12/2015. anemia, coagulopathy. degenerative disk disease. scoliosis. chronic back pain. hypothyroidism. depression - Surgical History Additional surgical history: ORIF tib-fib 03/26/17. T/A - Family History Additional family history: father age 42 due to accident. mother age 50s due to esophageal ca - Social History Smoking Status: Never smoked Alcohol Use: Heavy (1 pint 3-4 x per week) Drug Use: None Additional social history: Patient lives alone. COR - FULL. desires Renay Carbone (sister) to act as proxy if needed. Review of Systems Review of Systems: ROS: 10pt was reviewed & negative except for what was stated in HPI & below Physical Exam Physical Exam: Selected Entries 04/25/17 16:47 Blood Pressure Automatic Method Heart Rate 90 Respiratory 16 Rate O2 Sat (%) 96 Temperature (C) 37.1 C Blood Pressure 127/67 H Mean Arterial 87 Pressure (MAP) O2 Delivery Room Air Mode Temperature Oral Source Temp Pulse Resp BP Pulse Ox 37.3 C 85 16 134/73 H 94 04/25/17 22:56 04/25/17 22:56 04/25/17 22:56 04/25/17 22:56 04/25/17 22:56 Constitutional: no apparent distress, appears nourished, uncomfortable ( intermittently) Eyes: PERRL, anicteric sclera, EOMI, No scleral injection Ears, Nose, Mouth, Throat: moist mucous membranes, other (no nasal discharge) Cardiovascular: regular rate and rhythym, systolic murmur, edema (2+ right, 1+ left), No no murmur, rub, or gallop (3/6 systolic murmur) Peripheral Pulses: 1+: dorsalis-pedis (R), dorsalis-pedis (L) Respiratory: no respiratory distress, no rales or rhonchi, clear to auscultation Gastrointestinal: normoactive bowel sounds, soft, non-tender abdomen, no palpable masses, No guarding, No distension Genitourinary: no bladder tenderness, No nicole in urethra Skin: warm, normal color Musculoskeletal: generalized weakness Neurologic: AAOx3, sensation intact bilaterally, CN II-XII Intact, No facial droop Psychiatric: interacting appropriately, not anxious, not encephalopathic, thought process linear Lab Data & Imaging Review 04/26/17 05:21 04/26/17 05:21 WBC 5.99 10^3/uL (3.80-9.50) 04/25/17 18:38 RBC 3.77 10^6/uL (4.18-5.33) L 04/25/17 18:38 Hgb 12.8 g/dL (12.6-16.3) 04/25/17 18:38 Hct 38.3 % (38.0-47.0) 04/25/17 18:38 MCV 101.6 fL (81.5-99.8) H 04/25/17 18:38 MCH 34.0 pg (27.9-34.1) 04/25/17 18:38 MCHC 33.4 g/dL (32.4-36.7) 04/25/17 18:38 RDW 13.8 % (11.5-15.2) 04/25/17 18:38 Plt Count 181 10^3/uL (150-400) 04/25/17 18:38 MPV 10.2 fL (8.7-11.7) 04/25/17 18:38 Neut % (Auto) 76.7 % (39.3-74.2) H 04/25/17 18:38 Lymph % (Auto) 15.7 % (15.0-45.0) 04/25/17 18:38 Holmes % (Auto) 6.5 % (4.5-13.0) 04/25/17 18:38 Eos % (Auto) 0.5 % (0.6-7.6) L 04/25/17 18:38 Baso % (Auto) 0.3 % (0.3-1.7) 04/25/17 18:38 Nucleat RBC Rel Count 0.0 % (0.0-0.2) 04/25/17 18:38 Absolute Neuts (auto) 4.59 10^3/uL (1.70-6.50) 04/25/17 18:38 Absolute Lymphs (auto) 0.94 10^3/uL (1.00-3.00) L 04/25/17 18:38 Absolute Monos (auto) 0.39 10^3/uL (0.30-0.80) 04/25/17 18:38 Absolute Eos (auto) 0.03 10^3/uL (0.03-0.40) 04/25/17 18:38 Absolute Basos (auto) 0.02 10^3/uL (0.02-0.10) 04/25/17 18:38 Absolute Nucleated RBC 0.00 10^3/uL (0-0.01) 04/25/17 18:38 Immature Gran % 0.3 % (0.0-1.1) 04/25/17 18:38 Immature Gran # 0.02 10^3/uL (0.00-0.10) 04/25/17 18:38 PT 18.1 SEC (12.0-15.0) H 04/25/17 18:38 INR 1.48 (0.83-1.16) H 04/25/17 18:38 APTT 35.6 SEC (23.0-38.0) 04/25/17 18:38 Sodium 137 mEq/L (134-144) 04/25/17 18:38 Potassium 3.8 mEq/L (3.5-5.2) 04/25/17 18:38 Chloride 100 mEq/L (97-110) 04/25/17 18:38 Carbon Dioxide 24 mEq/l (22-31) 04/25/17 18:38 Anion Gap 13 mEq/L (8-16) 04/25/17 18:38 BUN 8 mg/dL (7-23) 04/25/17 18:38 Creatinine 0.6 mg/dL (0.6-1.0) 04/25/17 18:38 Estimated GFR > 60 04/25/17 18:38 Glucose 80 mg/dL (70-100) 04/25/17 18:38 Calcium 9.5 mg/dL (8.5-10.4) 04/25/17 18:38 Stool Occult Bld Scrn POSITIVE (NEGATIVE) H 04/25/17 18:50 Assessment & Plan Assessment: 61 yo F with hx of afib, etoh dependence and coagulopathy, recent DVT postop right LE on xarelto presents with c/o melena. 1. melena/upper GI bleed - ddx including gastritis with history of etoh, ulcer, AVM, esophageal varices. GI consultation this AM. patient VSS stable do not suspect active bleeding at this time. IV protonix. advised immediate etoh cessation. 2. etoh abuse - cessation advised. patient considering. will monitor for withdrawal. pt reports history of seizures. CIWA protocol in place. 3. coagulopathy - 2/2 long standing history of etoh likely underlying cirrhosis. monitor. 4. atrial fib - on xarelto. rate controlled. monitor. 5. R LE DVT on chronic anticoagulation - holding xarelto with acute GI bleeding. will need to consider anticoagulation for acute DVT 6. degenerative disk disease - supportive care. 7. hypothyroidism - continue l-thyroxine when diet advanced. 8. depression - resume sertraline when diet advanced. FEN - IVF overnight. NPO. electrolyte replacement prn. PPX - SCD left leg only. DVT right. holding anticoagulation. COR - FULL. pt desires sister Renay Carbone to act as proxy if needed. DIspo - ADmit to observation on medical floor at this time.
[2017-04-26] MEDS: LR 1,000 ML IV SCH (00:46)
[2017-04-26] MEDS: ACETAMINOPHEN 325 MG TAB PO PRN (00:47)
[2017-04-26] MEDS: THIAMINE HCL 500 MG in NS 100 ML IV SCH ×2 (01:07→09:54)
[2017-04-26 05:56] LABS: PLATELET COUNT 145 10^3/uL (150-400)
[2017-04-26 06:01] LABS: INR 1.65 (0.83-1.16); PROTIME(PATIENT) 19.6 SEC (12.0-15.0)
--- NOTE | 2017-04-26 08:29 | HOSPPROG ---
Hospitalist Progress Note Assessment/Plan: 61 yo s/p ORIF 03/26 tibial fibula, xarelto x1 week, now with new melena. Hgb fell 3 points to 9.8 in last 24 hours. a check of her hemoglobins afternoon seems that is stable. She had a a formed stool this morning. Patient is new to me today -GI bleeding 2/2 anticoagulation due to RLE DVT. this is likely an upper GI bleed not a lower GI bleed. She is not describing pure melena and she had a formed stool this afternoon. The etiology is probably a combination of alcohol abuse and the use of Xarelto. I discussed the case with GI, Dr. Armaan Jacques, and the plan is to do an EGD tomorrow and not a colonoscopy as it is most likely an upper GI bleed. - ETOH abuse: Patient admits to 4 pt of vodka a week. She denies prior withdrawal syndrome. She seems unaware that this is excessive use of alcohol. - Right leg DVT: I have stopped the Xarelto and will begin heparin until prior to the procedure. Depending on the results of the procedure will restart full-dose anticoagulation. - History of C difficile: A stool checked for C diff will be done - history of AFib; Currently low magnesium. plan: EGD tomorrow, restart anticoagulation per the findings of the EGD. Watch for alcohol Withdrawal. patient is a poor risk for long-term anticoagulation for the atrial fibrillation because of her alcohol use and history of falling. Case discussed with Dr. Armaan Jacques Subjective: Reports some feeling of nausea without vomiting or hematemesis. She moved her bowels with a formed soft small brown stool this morning. Mild complaints of abdominal pain. Objective: Vital Signs Temp Pulse Resp BP Pulse Ox 37.2 C 94 16 138/83 H 99 04/26/17 07:18 04/26/17 07:18 04/26/17 07:18 04/26/17 07:18 04/26/17 07:18 Laboratory Results 04/26/17 05:21 04/26/17 05:21 PT 19.6 SEC (12.0-15.0) H 04/26/17 05:22 INR 1.65 (0.83-1.16) H 04/26/17 05:22 Laboratory Tests 04/25/17 04/26/17 18:50 05:21 Magnesium 1.4 L Albumin 2.3 L Stool Occult Bld Scrn POSITIVE H Laboratory Tests 04/25/17 04/25/17 04/25/17 18:38 18:38 18:50 Hgb 12.8 INR 1.48 H Alkaline Phosphatase Albumin Stool Occult Bld Scrn POSITIVE H 04/26/17 04/26/17 04/26/17 05:21 05:21 05:22 Hgb 9.8 L INR 1.65 H Alkaline Phosphatase 194 H Albumin 2.3 L Stool Occult Bld Scrn 04/26/17 14:04 Hgb 10.6 L INR Alkaline Phosphatase Albumin Stool Occult Bld Scrn - Time Spent With Patient Time Spent with Patient: greater than 35 minutes Time Spent with Patient: Greater than 35 minutes spent on this patients care, greater than 50% of time spent counseling, educating, and coordinating care regarding the above mentioned plan. - Pending Discharge Pending Discharge Within 24 Hours: No Pending Discharge Within 48 Hours: Yes Pending Discharge Date: 04/28/17 Pending Discharge Time: 11:00 - Physical Exam Constitutional: no apparent distress, chronically ill appearing Eyes: PERRL, anicteric sclera Ears, Nose, Mouth, Throat: moist mucous membranes, hearing normal Cardiovascular: regular rate and rhythym, no murmur, rub, or gallop Respiratory: no respiratory distress, no rales or rhonchi, clear to auscultation Gastrointestinal: normoactive bowel sounds, tenderness ( mild tenderness in the epigastrium without a palpable or pulsatile mass. Liver and spleen cannot be palpted) Genitourinary: no bladder fullness Skin: warm Musculoskeletal: full muscle strength, other ( right leg shows post surgical changes with some swelling and redness.) Neurologic: AAOx3, CN II-XII Intact Psychiatric: interacting appropriately ICD10 Worksheet Patient Problems: Problems Problem Status Onset Abdominal pain Acute Alcohol abuse Acute Alcohol withdrawal Acute Alcohol withdrawal Acute Ankle fracture Acute Atrial fibrillation with RVR Acute C. difficile diarrhea Acute 09/23/16 Nausea & vomiting Acute Nausea and vomiting in adult Acute Vomiting Acute
[2017-04-26] MEDS ORDERED: traZODone 50 MG TAB PO PRN (08:30)
[2017-04-26] MEDS: ONDANSETRON 4 MG/2 ML VIAL IVP PRN (09:53)
[2017-04-26] MEDS: HYDROmorphONE/DILAUDID 1 MG/ML INJ IVP PRN ×2 (09:53→12:43)
[2017-04-26] MEDS: CALCIUM CARBONATE 500 MG TAB PO SCH ×2 (09:55→21:07)
[2017-04-26] MEDS: DILTIAZEM XR 240 MG CAP PO SCH (09:55)
[2017-04-26] MEDS: SERTRALINE HCL 50 MG TAB PO SCH (09:56)
[2017-04-26] MEDS: PANTOPRAZOLE SODIUM 40 MG VIAL IVP SCH ×2 (09:56→21:08)
[2017-04-26] MEDS: oxyCODONE IR 5 MG TAB PO PRN ×2 (13:34→21:08)
[2017-04-26] MEDS ORDERED: MAGNESIUM SULF 2 GM/WATER 50 ML IV ONE (15:30)
--- NOTE | 2017-04-26 15:32 | ASMTCASEMG ---
Living Arrangements What is your living Answers: Alone arrangement? Who do you live with? Type Of Residence What kind of residence do Answers: House you live in? Discharge Plan Comments Coordination Status Comments Notes: Patient is a 61yo single female who was admitted for black stools and possible upper GI bleed. Patient has a hx of ETOH abuse, degenerative disc disease, hypothothyroidism, and depression. No therapies have been ordered. D/C needs TBD. CM will follow. Date Signed: 04/26/2017 03:32 PM Electronically Signed By:Ruthie Dill LCSW
--- NOTE | 2017-04-26 20:24 | GCON ---
[f rep st] CONSULTATION DATE OF CONSULTATION: 04/26/2017 REASON FOR CONSULTATION: Melena. Dear Dr. Alex: Thank you very kindly for asking me to evaluate Mrs. Workman in consultation for melena. She is a pl easant 61-year-old female with chronic alcoholism and a previous pancreatitis episode who was admitte d for abdominal discomfort and tarry stools. She was at her primary care office yesterday and report ed having dark bowel movements. It sounds as though a Hemoccult was done in the office and was posit yobani, and she was diverted to the emergency department for further care. The patient describes having a liquid bowel movement that was somewhat green to black in color. She had another episode later th at afternoon that was more black and tarry. She has been reporting abdominal pain that is epigastric and radiates around to her right upper quadrant that has been present since yesterday and is describ ed as a spasm or dull ache. Her most recent comorbid medical conditions are for a right lower extrem ity DVT complicating a fracture repair and atrial fibrillation. She was placed on Xarelto recently f or the DVT related therapy. Her Xarelto has been held currently. Her initial hematocrit on presenta tion was 38.3, but fell to 29.5 today. Her MCV is 100. I am asked to assist with further evaluation and management. Of note, her INR is 1.65, but her platelets are reasonable at 145. She has had no hematemesis or further bleeding since admission. PAST MEDICAL HISTORY: Significant for alcohol abuse. Fall resulting in a tibia-fibula and malleolar fracture on the right, status post open reduction, internal fixation. Atrial fibrillation. Clostri dium difficile colitis in December of 2015. Hypothyroidism. Chronic pain. Depression. Alcohol wi thdrawal, complicated by seizures. FAMILY HISTORY: Significant for esophageal cancer. SOCIAL HISTORY: No tobacco. Drinks daily about a pint of alcohol, typically vodka a few times per w augustine. The patient lives alone. ALLERGIES: Sulfa. MEDICATIONS: On admission include herbal supplements, sertraline, vitamin C, calcium, and levothyrox ine. REVIEW OF SYSTEMS: CONSTITUTIONAL: Malaise and weakness. HEENT: Headache, dry mouth. PULMONARY: No shortness of breath or cough. CARDIOVASCULAR: No chest pain, palpitations or syncope. GASTROIN TESTINAL: Significant for abdominal pain, nausea, and melena with some diarrhea. RHEUMATOLOGIC: Si gnificant for right lower extremity pain, predominantly in the ankle from her fracture repair, which was in February. Rheumatologic is otherwise negative for any other focal joint pain or swelling. DE RMATOLOGIC: Negative for pruritus, jaundice or rash. ENDOCRINE: No heat or cold intolerance. TRUDY TOURINARY: Denies dysuria or hematuria. GYNECOLOGIC: Denies vaginal bleeding. HEMATOLOGIC: Denie s epistaxis or bruising. NEUROLOGIC: Denies recent seizure, paresthesias, but does report some foca l motor difficulties on the right because of her recent orthopedic repair. LABORATORY DATA: Database includes white blood count of 4.1, hematocrit 29.5, platelets 145. INR is 1.6. PT is 19.6. Sodium is 140, potassium 4.0, chloride 106, bicarbonate 26, BUN 8, creatinine 0.7 , glucose 90. AST 51, ALT 49, alkaline phosphatase 194, total protein 4.4, albumin 2.3, magnesium 1. 4. IMPRESSION: 1. Melena. 2. Normocytic to slightly macrocytic anemia. 3. Abdominal pain, epigastric and right upper quadrant. 4. Alcohol dependence. 5. Deep venous thrombosis with recent use of Xarelto. 6. Atrial fibrillation. RECOMMENDATIONS: 1. Clear liquid diet today. 2. N.p.o. after midnight. 3. Hold Xarelto. 4. Monitor CBC every 8 hours and transfuse if her hematocrit is less than 25. 5. Morning coagulation studies. 6. Upper endoscopy to evaluate what sounds like melena in the setting of anemia and also with her ab dominal pain. 7. I believe her liver function tests are elevated related to alcoholism. I would check a lipase, g iven her abdominal pain to exclude recurrent pancreatitis. 8. Logistically it would be difficult for her to cleanse for a colonoscopy due to her orthopedic rep air and somewhat of her immobility. She also denies any real lower gastrointestinal sounding bleedin g type symptoms, but if her upper endoscopy is negative, this may need to be considered. 9. Her anemia is also to a degree likely multifactorial. She has had a recent surgery and likely lo st blood there. She has had nutritional problems and alcoholism, which I think also contributes to t he anemia. It is not unreasonable that if her upper endoscopy is unremarkable and her hematocrit sta ys stable, and there was no real active bleeding in the hospital that we could simply treat this symp tomatically with transfusion, iron supplementation, and consider an outpatient colonoscopy, but this remains to be determined. Thank you very kindly for allowing me to be involved in her care. Further recommendations to follow her endoscopic evaluation tomorrow. 10. Of note, I do not believe she needs octreotide, and I believe Protonix twice daily therapy shoul d be adequate. /[id number]/MODL
[2017-04-26] MEDS: METHOCARBAMOL 500 MG TAB PO SCH (21:07)
[2017-04-26] MEDS: GABAPENTIN 100 MG CAP PO SCH (21:07)
[2017-04-27] MEDS: LR 1,000 ML IV SCH (00:06)
[2017-04-27] MEDS: oxyCODONE IR 5 MG TAB PO PRN ×3 (02:56→17:58)
[2017-04-27] MEDS: LEVOTHYROXINE 112 MCG TAB PO SCH (05:25)
[2017-04-27] MEDS: HYDROmorphONE/DILAUDID 1 MG/ML INJ IVP PRN (05:31)
[2017-04-27 05:36] LABS: PLATELET COUNT 102 10^3/uL (150-400)
[2017-04-27 05:41] LABS: INR 1.13 (0.83-1.16); PROTIME(PATIENT) 14.7 SEC (12.0-15.0)
[2017-04-27] MEDS: CALCIUM CARBONATE 500 MG TAB PO SCH ×2 (09:37→20:58)
[2017-04-27] MEDS: SERTRALINE HCL 50 MG TAB PO SCH (09:37)
[2017-04-27] MEDS: DILTIAZEM XR 240 MG CAP PO SCH (09:37)
[2017-04-27] MEDS: PANTOPRAZOLE SODIUM 40 MG VIAL IVP SCH ×2 (09:57→20:15)
[2017-04-27] MEDS: THIAMINE HCL 500 MG in NS 100 ML IV SCH (10:31)
[2017-04-27] MEDS: ONDANSETRON 4 MG/2 ML VIAL IVP PRN (10:31)
[2017-04-27] MEDS ORDERED: fentaNYL 100 MCG/2 ML INJ ONE (14:19)
--- NOTE | 2017-04-27 14:34 | PDANEPAE ---
ANE Past Medical History - Pulmonary History Hx Oxygen in Use at Home: No Hx Sleep Apnea: No Sleep Apnea Screening Result - Last Documented: Negative - Endocrine History Hx Diabetes: No - Chronic Pain History Chronic Pain: No (back uses ibuprofen) ANE Review of Systems Review of Systems: ANE Patient History - Allergies Allergies/Adverse Reactions: Sulfa (Sulfonamide Antibiotics) Allergy (Mild, Verified 04/25/17 16:46) Rash - Home Medications Home Medications: Herbals/Supplements -Info Only 1 ea PO DAILY 09/22/16 [Last Taken Unknown] Sertraline HCl [Zoloft 50mg (*)] 75 mg PO DAILY 02/28/17 [Last Taken 04/25/17] Ascorbic Acid [Vitamin C 500 mg (*)] 1,000 mg PO DAILY 03/27/17 [Last Taken Unknown] Calcium Carbonate [Oyster Shell Calcium 500 mg (*)] 500 mg PO BID 03/27/17 [ Last Taken Unknown] Levothyroxine [Synthroid 112 mcg (*)] 112 mcg PO DAILY06 03/27/17 [Last Taken ] Herbals/Supplements -Info Only 1 ea PO DAILY 04/25/17 [Last Taken Unknown] - NPO status NPO Since - Liquids (Date): 04/27/17 NPO Since - Liquids (Time): 00:00 NPO Since - Solids (Date): 04/27/17 NPO Since - Solids (Time): 00:00 - Smoking Hx Smoking Status: Never smoked - Alcohol Use Alcohol Use: Heavy (1 pint 3-4 x per week) ANE Labs/Vital Signs - Labs Result Diagrams: 04/27/17 05:20 04/27/17 05:20 - Vital Signs Blood Pressure: 136/72 Heart Rate: 93 Respiratory Rate: 18 O2 Sat (%): 98 Height: 17.07 m Weight: 71.4 kg ANE Physical Exam - Airway Neck exam: FROM Mallampati Score: Class 1 Mouth exam: normal dental/mouth exam - Pulmonary Pulmonary: no respiratory distress, no rales or rhonchi, clear to auscultation, reduced air movement - Cardiovascular Cardiovascular: regular rate and rhythym, no murmur, rub, or gallop - ASA Status ASA Status: III ANE Anesthesia Plan Anesthesia Plan: MAC
[2017-04-27] MEDS ORDERED: ALBUTEROL 3 ML DEYVIAL IH PRN (14:37)
[2017-04-27] MEDS ORDERED: NALOXONE HCL 0.4 MG/ML INJ IVP PRN (14:37)
[2017-04-27] MEDS ORDERED: fentaNYL 100 MCG/2 ML INJ IVP PRN (14:37)
[2017-04-27] MEDS ORDERED: LR 500 ML IV PRN (14:37)
[2017-04-27] MEDS ORDERED: DIAZEPAM 10 MG/2 ML SYR IVP PRN (14:37)
--- NOTE | 2017-04-27 14:45 | GIREPORT ---
[facility] - Endoscopy Department Patient Name: Nicole Workman Procedure Date: 04/27/2017 2:06 PM Patient Type: Inpatient Attending MD/ ER Physician: Armaan Jacques MD Procedure: Upper GI endoscopy Indications: Melena, Nausea with vomiting Providers: Armaan Jacques MD Medicines: Propofol per Anesthesia Complications: No immediate complications. Description of Procedure: After obtaining informed consent, the endoscope was passed under direct vision. Throughout the procedure, the patient's blood pressure, pulse, and oxygen saturations were monitored continuously. The Endoscope was intro duced through the mouth, and advanced to the third part of duodenum. The uppe r GI endoscopy was accomplished without difficulty. The patient tolerated th e procedure well. Findings: A 6 mm non-bleeding Lisa-Murphy tear with stigmata of recent bleeding was found. One non-bleeding cratered gastric ulcer with no stigmata of bleeding wa s found in the gastric antrum. The lesion was 10 mm in largest dimension. Biopsies were taken with a cold forceps for histology. A deformity was found at the pylorus related to the gastric ulcer that causes edema and swelling. The pyloric channel is patent however withou t obstruction. The examined duodenum was normal. Estimated Blood Loss: Estimated blood loss was minimal. Post Op Diagnosis: - Lisa-Murphy tear. - Non-bleeding gastric ulcer with no stigmata of bleeding. Biopsied. - Acquired deformity in the pylorus. - Normal examined duodenum. Recommendation: - Await pathology results. - Use Protonix (pantoprazole) 40 mg IV BID. - Use sucralfate suspension 1 gram PO QID for 2 weeks. - No aspirin, ibuprofen, naproxen, or other non-steroidal anti-inflamma tory drugs. - Advance diet as tolerated. - Return patient to hospital [facility] for ongoing care. - There is clearly a bleeding risk to anti-coagulation but if she requi res this for her DVT then the medical management is all that can be provide d (as above). - If there is recurrent bleeding with reinitaiton of anti-coagulation t hen repeat EGD will be recommended with cessation of anti-coagulation, reve rsal and consideration for IVC filter placement. - Thank you for allowing me to be involved in the care of your patient. Attending Participation: I personally performed the entire procedure without the assistance of a fellow, resident or surg ical floor covering printer assistant. Armaan Jacques MD Armaan Jacques MD 04/27/2017 2:45:01 PM This report has been signed electronicallyDavid MD Sawyer Number of Addenda: 0 Note Initiated On: 04/27/2017 2:06 PM [email or web address]
--- NOTE | 2017-04-27 14:59 | POSTANESTH ---
Post Anesthetic Evaluation Cardiovascular Status: Normal, Stable, Similar to Pre-Op Cond Respiratory Status: Normal, Stable, Similar to Pre-op Cond. Level of Consciousness/Mental Status: Can Participate in Eval Pain Control: Adequate, Prn Tx Ordered Nausea/Vomiting Control: Adequate, Prn Tx Ordered Complications Possibly Related to Anesthesia: None Noted
--- NOTE | 2017-04-27 16:33 | PDMN ---
Medical Necessity Medical necessity: Change to IP, as of 04/27/17, per MD; los >2 mn for ongoing management of melena, N/V; admit for surgical intervention, further monitoring, IVFs, IV pain meds/antiemetics/PPI; hx etoh abuse, pancreatitis, seizures, AFIB on AC, CDIFF; per progress note & order 04/27/17
--- NOTE | 2017-04-27 17:57 | HOSPPROG ---
Hospitalist Progress Note Assessment/Plan: 61 yo s/p ORIF 03/26 tibial fibula, xarelto x1 week, now with new melena. Hgb fell 3 points to 9.8 in last 24 hours. a check of her hemoglobins afternoon seems that is stable. She had a a formed stool this morning. EGD today showed a gastric ulcer and Lisa-Murphy tear. There was no active bleeding at that time. -GI bleeding 2/2 anticoagulation due to RLE DVT. GI bleeding likely secondary to the gastric ulcer and Lisa-Murphy tear. There is no active bleeding at this time. - ETOH abuse: Patient admits to 4 pt of vodka a week. She denies prior withdrawal syndrome. She seems unaware that this is excessive use of alcohol. - Right leg DVT: Xarelto was stopped in light of the active GI bleeding but now with the upper GI showing no active bleeding or restart heparin. We can sort out whether it should be Coumadin or Xarelto at a later time. - History of C difficile: A stool checked for C diff will be done. Nose stools have been 10 obtained at this time - history of AFib; Currently low magnesium. Will replete plan: Start heparin and in will restart Xarelto at discharge. Coumadin would be safer as it can be reversed so I will discuss this matter and both with the patient and case management as to whether this can be safely done in this lady. Currently have questions of whether she is safe at home and perhaps rehabilitation would be a better choice for another 2 weeks. Case discussed with Dr. Armaan Jacques, findings of the EGD discussed with Dr. Jacques also Subjective: No complaints at this time. She has just recently completed a EGD and is slightly drowsy. Objective: Vital Signs Temp Pulse Resp BP Pulse Ox 37.3 C 100 14 116/68 96 04/27/17 15:43 04/27/17 15:43 04/27/17 15:43 04/27/17 15:43 04/27/17 15:43 04/26/17 04/27/17 04/28/17 05:59 05:59 05:59 Intake Total 640 Output Total 0 Balance 640 PT 14.7 SEC (12.0-15.0) 04/27/17 05:20 INR 1.13 (0.83-1.16) 04/27/17 05:20 - Time Spent With Patient Time Spent with Patient: greater than 35 minutes Time Spent with Patient: Greater than 35 minutes spent on this patients care, greater than 50% of time spent counseling, educating, and coordinating care regarding the above mentioned plan. - Pending Discharge Pending Discharge Within 24 Hours: No Pending Discharge Within 48 Hours: Yes Pending Discharge Date: 04/29/17 Pending Discharge Time: 11:00 - Physical Exam Constitutional: no apparent distress Eyes: PERRL, anicteric sclera Ears, Nose, Mouth, Throat: moist mucous membranes Cardiovascular: regular rate and rhythym, no murmur, rub, or gallop Respiratory: no respiratory distress, no rales or rhonchi Gastrointestinal: normoactive bowel sounds, soft, non-tender abdomen, no palpable masses Genitourinary: no bladder fullness Skin: warm Musculoskeletal: other (Right lower extremity shows swelling and some erythema consistent with her recent surgery and the DVT.) ICD10 Worksheet Patient Problems: Problems Problem Status Onset Abdominal pain Acute Ankle fracture Acute Alcohol withdrawal Acute Nausea and vomiting in adult Acute Alcohol abuse Acute Nausea & vomiting Acute Vomiting Acute Atrial fibrillation with RVR Acute C. difficile diarrhea Acute 09/23/16 Alcohol withdrawal Acute
[2017-04-27] MEDS ORDERED: HEPARIN 10,000 UNIT/10 ML MDV (1,000 UNIT/ML) IVP ONE (17:58)
[2017-04-27 18:26] LABS: PLATELET COUNT 95 10^3/uL (150-400)
[2017-04-27 18:38] LABS: INR 1.22 (0.83-1.16); PROTIME(PATIENT) 15.6 SEC (12.0-15.0)
--- NOTE | 2017-04-27 19:15 | ASMTCMCOM ---
CM Note CM Note Notes: Patient's income and assets make her ineligible for Medicaid equipment [employer] care. [facility] sent an email stating they will no longer work with the patient due to compliance and safety concerns. Patient has had [facility] services and they have her as an open case. They are requesting we notify them when she is ready for d/c. ([phone]). D/C needs are still TBD. A copy of the [facility] email and the info. from [facility] is on the spring encaser desk to refer to over the weekend. CM will follow. Date Signed: 04/27/2017 07:14 PM Electronically Signed By:Ruthie Dill LCSW
[2017-04-27] MEDS: HEPARIN/DEXTROSE 500 ML IV SCH (19:57)
[2017-04-27] MEDS: METHOCARBAMOL 500 MG TAB PO SCH (20:58)
[2017-04-27] MEDS: GABAPENTIN 100 MG CAP PO SCH (20:58)
[2017-04-28] MEDS: oxyCODONE IR 5 MG TAB PO PRN ×2 (01:49→11:44)
[2017-04-28] MEDS: ONDANSETRON 4 MG/2 ML VIAL IVP PRN (01:50)
[2017-04-28] MEDS: HEPARIN 10,000 UNIT/10 ML MDV (1,000 UNIT/ML) IVP PRN (03:33)
[2017-04-28] MEDS: ACETAMINOPHEN 325 MG TAB PO PRN ×2 (03:49→19:54)
--- NOTE | 2017-04-28 04:45 | CPEKG ---
Heart Rate: 144 RR Interval: 417 QRSD Interval: 66 QT Interval: 304 QTC Interval: 471 QRS [place]: 21 T Wave [place]: 48 EKG Severity - ABNORMAL ECG - EKG Impression: ATRIAL FIBRILLATION EKG Impression: LOW VOLTAGE IN FRONTAL LEADS EKG Impression: MINIMAL ST DEPRESSION, INFERIOR LEADS Electronically Signed By: Luis Ahumada 29-Apr-2017 07:38:55
[2017-04-28] MEDS: LEVOTHYROXINE 112 MCG TAB PO SCH (04:58)
[2017-04-28 05:17] LABS: PLATELET COUNT 86 10^3/uL (150-400)
[2017-04-28] MEDS ORDERED: ACETAMINOPHEN 500 MG TAB PO ONE (06:11)
[2017-04-28] MEDS: DILTIAZEM XR 240 MG CAP PO SCH (06:24)
[2017-04-28] MEDS ORDERED: METOPROLOL TARTRATE 5 MG/5 ML INJ IVP ONE (08:13)
[2017-04-28] MEDS ORDERED: ALTEPLASE 2 MG VIAL IVP PRN (08:16)
[2017-04-28] MEDS ORDERED: METOPROLOL TARTRATE 5 MG/5 ML INJ ONE (08:19)
--- NOTE | 2017-04-28 08:20 | HOSPPROG ---
Hospitalist Progress Note Assessment/Plan: 61 yo s/p ORIF 03/26 tibial fibula, xarelto x1 week. Patient admitted with melena and a GI bleed in an EGD showed a gastric ulceration which was not bleeding and a Lisa-Murphy tear also not bleeding. This is now stable. She had an episode of atrial fibrillation with RVR and has been placed on her oral diltiazem and given doses of IV metoprolol with good rate control. Patient has a right leg DVT which requires long-term anticoagulation: She has a known GI bleed here in this hospital now and not bleeding, and has chronic atrial fibrillation currently well controlled. Patient also admits to drinking 4 pt of vodka a day and the possibility of alcohol withdrawal now is present as she has been in the hospital greater than 48 hr. -possible UTI now on rocephin -GI bleeding 2/2 anticoagulation due to RLE DVT. GI bleeding likely secondary to the gastric ulcer and Lisa-Murphy tear. There is no active bleeding at this time. - ETOH abuse: Patient admits to 4 pt of vodka a week. She denies prior withdrawal syndrome. She seems unaware that this is excessive use of alcohol. Will implement CIWA for tonight. Patient reports now she wants to stop and has a counselor at . - Right leg DVT: Currently using heparin as a can be easily reversed in light of her possible GI bleed. Ultimately will have to decide what form of long- term anticoagulation could done. - History of C difficile: A stool checked for C diff will be done. Nose stools have been 10 obtained at this time - history of AFib; Currently low magnesium. Will replete plan: Start heparin and in will restart Xarelto at discharge. Coumadin would be safer as it can be reversed so I will discuss this matter and both with the patient and case management as to whether this can be safely done in this lady. Currently have questions of whether she is safe at home and perhaps rehabilitation would be a better choice for another 2 weeks. This matter is not been clarified at this time but will be on 04/29. Plan: Will start Coumadin in the hope that the lady will remain sober. CIWA for tonight as a possibility of alcohol withdrawal is present. Watch hemoglobin per history of GI bleeding during this admission Subjective: No complaints that she feels much better her mental status an interaction are much clear than they have been since her admission. Denies chest pain shortness of breath. She is currently in atrial fibrillation at a controlled rate of approximately 100 Objective: Vital Signs Temp Pulse Resp BP Pulse Ox 37.5 C 136 H 18 105/64 100 04/28/17 07:38 04/28/17 07:38 04/28/17 07:38 04/28/17 07:38 04/28/17 07:38 Laboratory Results 04/28/17 04:40 04/28/17 04:40 04/27/17 04/28/17 04/29/17 05:59 05:59 05:59 Intake Total 1480 Output Total 700 Balance 780 PT 15.6 SEC (12.0-15.0) H 04/27/17 18:17 INR 1.22 (0.83-1.16) H 04/27/17 18:17 - Time Spent With Patient Time Spent with Patient: greater than 35 minutes Time Spent with Patient: Greater than 35 minutes spent on this patients care, greater than 50% of time spent counseling, educating, and coordinating care regarding the above mentioned plan. - Pending Discharge Pending Discharge Within 24 Hours: No Pending Discharge Within 48 Hours: Yes Pending Discharge Date: 04/30/17 Pending Discharge Time: 11:00 - Physical Exam Constitutional: no apparent distress, chronically ill appearing Eyes: PERRL, anicteric sclera Ears, Nose, Mouth, Throat: moist mucous membranes, hearing normal Cardiovascular: irregularly irregular, tachycardia Respiratory: no respiratory distress, no rales or rhonchi Gastrointestinal: normoactive bowel sounds, soft, non-tender abdomen, no palpable masses Genitourinary: no bladder fullness Skin: warm Musculoskeletal: generalized weakness Neurologic: AAOx3, CN II-XII Intact Psychiatric: interacting appropriately ICD10 Worksheet Patient Problems: Problems Problem Status Onset Abdominal pain Acute Ankle fracture Acute Alcohol withdrawal Acute Nausea and vomiting in adult Acute Alcohol abuse Acute Nausea & vomiting Acute Vomiting Acute Atrial fibrillation with RVR Acute C. difficile diarrhea Acute 09/23/16 Alcohol withdrawal Acute
[2017-04-28] MEDS: SERTRALINE HCL 50 MG TAB PO SCH (09:44)
[2017-04-28] MEDS: CALCIUM CARBONATE 500 MG TAB PO SCH ×2 (09:44→22:02)
[2017-04-28] MEDS: PANTOPRAZOLE SODIUM 40 MG VIAL IVP SCH ×2 (09:44→22:02)
[2017-04-28] MEDS: THIAMINE HCL 500 MG in NS 100 ML IV SCH (09:45)
[2017-04-28] MEDS: HYDROmorphONE/DILAUDID 1 MG/ML INJ IVP PRN (14:39)
[2017-04-28] MEDS: HEPARIN/DEXTROSE 500 ML IV SCH (19:11)
[2017-04-28] MEDS: GABAPENTIN 100 MG CAP PO SCH (22:02)
[2017-04-28] MEDS: METHOCARBAMOL 500 MG TAB PO SCH (22:02)
[2017-04-29] MEDS: LEVOTHYROXINE 112 MCG TAB PO SCH (06:01)
[2017-04-29] MEDS: ACETAMINOPHEN 325 MG TAB PO PRN (06:01)
[2017-04-29 06:29] LABS: PLATELET COUNT 71 10^3/uL (150-400)
[2017-04-29 06:39] LABS: INR 1.45 (0.83-1.16); PROTIME(PATIENT) 17.8 SEC (12.0-15.0)
[2017-04-29] MEDS: HEPARIN 10,000 UNIT/10 ML MDV (1,000 UNIT/ML) IVP PRN ×2 (07:06→14:36)
[2017-04-29] MEDS: SERTRALINE HCL 50 MG TAB PO SCH (08:55)
[2017-04-29] MEDS: DILTIAZEM XR 240 MG CAP PO SCH (08:55)
[2017-04-29] MEDS: CALCIUM CARBONATE 500 MG TAB PO SCH ×2 (08:57→20:20)
[2017-04-29] MEDS: PANTOPRAZOLE SODIUM 40 MG VIAL IVP SCH (08:57)
[2017-04-29] MEDS: HEPARIN/DEXTROSE 500 ML IV SCH (10:06)
[2017-04-29] MEDS: oxyCODONE IR 5 MG TAB PO PRN (13:51)
--- NOTE | 2017-04-29 15:54 | HOSPPROG ---
Hospitalist Progress Note Assessment/Plan: 61 yo s/p ORIF 03/26 tibial fibula, xarelto x1 week. Patient admitted with melena and a GI bleed in an EGD showed a gastric ulceration which was not bleeding and a Lisa-Murphy tear also not bleeding. This is now stable. She had an episode of atrial fibrillation with RVR and has been placed on her oral diltiazem and given doses of IV metoprolol with good rate control. Patient has a right leg DVT which requires long-term anticoagulation: She has a known GI bleed here in this hospital now and not bleeding, and has chronic atrial fibrillation currently well controlled. Patient also admits to drinking 4 pt of vodka a day and the possibility of alcohol withdrawal now is present as she has been in the hospital greater than 48 hr. -possible UTI now on rocephin, no further symptoms -GI bleeding 2/2 anticoagulation due to RLE DVT. GI bleeding likely secondary to the gastric ulcer and Lisa-Murphy tear. There is no active bleeding at this time. Anemia is present secondary to GI bleeding although it is stable. - ETOH abuse: Patient admits to 4 pt of vodka a week. She denies prior withdrawal syndrome. She seems unaware that this is excessive use of alcohol. Will implement CIWA though in the last 48 hr we have C do limited signs of withdrawal.. Patient reports now she wants to stop and has a friend who will help her with AA - Right leg DVT: Currently using heparin as a can be easily reversed in light of her possible GI bleed. Ultimately will have to decide what form of long- term anticoagulation could done. - History of C difficile: A stool checked for C diff will be done. Nose stools have been 10 obtained at this time - history of AFib; currently in an S are on diltiazem. -electrolyte disorders of potassium and magnesium on protocol plan: Continue the heparin and watch stools for signs of bleeding. Continue C1 watch for signs of withdrawal. Hemoglobin has been stable in the patient could be discharged on 04/30/2017. At this time her disposition would be to home with assistance. If she is able to stop alcohol then we could use Xarelto. That would be easier than Coumadin though harder to reverse. She has had 3 days of antibiotic for the UTI with Rocephin and I would check the culture and decide if further antibiotics are needed Plan: Coumadin has been started on 04/28. CIWA for tonight as a possibility of alcohol withdrawal is present. Watch hemoglobin per history of GI bleeding during this admission Disposition: 1-2 days. Plan now is to go home although rehab may be possible. Patient is not accepted that idea Subjective: defensive and someone argumentative this morning about her alcohol use. No complaints of chest pain shortness of breath nausea or vomiting. No melena Objective: Vital Signs Temp Pulse Resp BP Pulse Ox 37.3 C 86 18 105/65 91 L 04/29/17 15:08 04/29/17 15:08 04/29/17 15:08 04/29/17 15:08 04/29/17 15:08 Laboratory Results 04/29/17 06:20 04/29/17 06:20 04/28/17 04/29/17 04/30/17 05:59 05:59 05:59 Intake Total 1480 900 Output Total 700 Balance 780 900 PT 17.8 SEC (12.0-15.0) H 04/29/17 06:20 INR 1.45 (0.83-1.16) H 04/29/17 06:20 - Time Spent With Patient Time Spent with Patient: greater than 35 minutes Time Spent with Patient: Greater than 35 minutes spent on this patients care, greater than 50% of time spent counseling, educating, and coordinating care regarding the above mentioned plan. - Pending Discharge Pending Discharge Within 24 Hours: Yes Pending Discharge Date: 04/30/17 Pending Discharge Time: 11:00 - Physical Exam Constitutional: no apparent distress Eyes: PERRL, anicteric sclera Ears, Nose, Mouth, Throat: moist mucous membranes, hearing normal Cardiovascular: regular rate and rhythym, no murmur, rub, or gallop Respiratory: no respiratory distress, no rales or rhonchi, clear to auscultation Gastrointestinal: normoactive bowel sounds, soft, non-tender abdomen, no palpable masses Genitourinary: no bladder fullness Skin: warm Musculoskeletal: full muscle strength Neurologic: AAOx3, CN II-XII Intact ICD10 Worksheet Patient Problems: Problems Problem Status Onset Abdominal pain Acute Alcohol abuse Acute Alcohol withdrawal Acute Alcohol withdrawal Acute Ankle fracture Acute Atrial fibrillation with RVR Acute C. difficile diarrhea Acute 09/23/16 Nausea & vomiting Acute Nausea and vomiting in adult Acute Vomiting Acute
[2017-04-29] MEDS ORDERED: PROTOCOL POTASSIUM 1 DOSE MISC PRN (15:56)
[2017-04-29] MEDS ORDERED: POTASSIUM CL 10 MEQ TAB PO ONE ×2 (16:26→19:15)
[2017-04-29] MEDS: GABAPENTIN 100 MG CAP PO SCH (20:20)
[2017-04-29] MEDS: METHOCARBAMOL 500 MG TAB PO SCH (20:20)
[2017-04-29] MEDS: PANTOPRAZOLE SODIUM 40 MG TAB PO SCH (20:20)
[2017-04-30] MEDS: oxyCODONE IR 5 MG TAB PO PRN ×2 (04:11→08:35)
[2017-04-30 04:41] LABS: PLATELET COUNT 90 10^3/uL (150-400)
[2017-04-30 04:42] LABS: INR 1.29 (0.83-1.16); PROTIME(PATIENT) 16.3 SEC (12.0-15.0)
[2017-04-30] MEDS: LEVOTHYROXINE 112 MCG TAB PO SCH (05:39)
[2017-04-30] MEDS ORDERED: POTASSIUM CL 10 MEQ TAB PO ONE ×2 (07:15→20:32)
[2017-04-30] MEDS: SERTRALINE HCL 50 MG TAB PO SCH (08:28)
[2017-04-30] MEDS: CALCIUM CARBONATE 500 MG TAB PO SCH ×2 (08:29→21:08)
[2017-04-30] MEDS: PANTOPRAZOLE SODIUM 40 MG TAB PO SCH ×2 (08:29→21:08)
[2017-04-30] MEDS: DILTIAZEM XR 240 MG CAP PO SCH (08:29)
--- NOTE | 2017-04-30 12:02 | ASMTCMCOM ---
CM Note CM Note Notes: D/C plan for patient may change to inpatient rehab since she is capable of PT 3 times a day. Several referrals have been made to home health agencies, however, we have not gotten any response most likely due to the holidays. Patient will not be ready until Sunday per Dr. Barakat. D/C needs changing. CM will follow. Date Signed: 04/30/2017 12:01 PM Electronically Signed By:Ruthie Dill LCSW
[2017-04-30] MEDS: HEPARIN/DEXTROSE 500 ML IV SCH (12:45)
--- NOTE | 2017-04-30 15:30 | SOAPPROG ---
[facility] Progress Note Assessment/Plan: -s/p ORIF 03/26 tibial fibula -GI bleeding 2/2 anticoagulation due to RLE DVT/xarelto. s/p endoscopies with Dr Villaseñor HGB stable, watch closely while transitioning to coumadin on BID PPI, started sucralfate per GI recs -Anemia, acute blood loss stable. - ETOH abuse: Patient admits to 4 pt of vodka a week denies prior withdrawal syndrome. CIWA status/vitamins interested in cessation, CM to review resources/assistance available in community - Right leg DVT therapeutic on heparin discussed anti coagulation in general with her today revwd with pharmacist also coumadin started/pharm to dose watch closely for recurrent GI bleed signs - History of C difficile - history of A Fib, with episode of RVR here now in sinus with diltiazem -electrolyte disorders of potassium and magnesium replace per protocol -UTI on rocephin, no further symptoms e coli, await sens to change to PO/finish course -hypothyroid synthroid -depression increased SSRI Disposition: unsure at this time, will depend upon stability of H and H after full anticoag with coumadin. Would likely benefit from inpt rehab- but reluctant /wants to go home with [facility], CM working on issues Subjective: Says she 'needs a happy pill', upset/frustrated in general, wants to go home. Denies CP/SOB/v/d. Objective: Vital Signs Temp Pulse Resp BP Pulse Ox 99.3 F 87 20 101/58 L 92 04/30/17 11:30 04/30/17 11:30 04/30/17 11:30 04/30/17 11:30 04/30/17 11:30 Laboratory Results 04/30/17 04:20 04/30/17 04:20 04/29/17 04/30/17 05/01/17 11:59 11:59 11:59 Intake Total 900 1135.6 Balance 900 1135.6 PT 16.3 SEC (12.0-15.0) H 04/30/17 04:20 INR 1.29 (0.83-1.16) H 04/30/17 04:20 - Time Spent With Patient Time Spent With Patient: 45 - Pending Discharge Pending Discharge Within 48 Hours: No Physical Exam - Physical Exam General Appearance: WD/WN, alert, other (occ tearful) Respiratory: normal breath sounds, No respiratory distress Cardiac/Chest: regular rate, rhythm, No edema Abdomen: normal bowel sounds, non-tender, soft, No distended, No guarding Skin: warm/dry Neuro/Psych: alert, other (occ tearful), No sensory deficit, No cognition abnormalities, No speech abnormalities ICD10 Worksheet Patient Problems: Problems Problem Status Onset Abdominal pain Acute Alcohol abuse Acute Alcohol withdrawal Acute Alcohol withdrawal Acute Ankle fracture Acute Atrial fibrillation with RVR Acute C. difficile diarrhea Acute 09/23/16 Nausea & vomiting Acute Nausea and vomiting in adult Acute Vomiting Acute
[2017-04-30] MEDS ORDERED: WARFARIN SODIUM 3 MG TAB PO ONE (16:00)
[2017-04-30] MEDS: ACETAMINOPHEN 325 MG TAB PO PRN ×2 (17:57→22:35)
[2017-04-30] MEDS ORDERED: PROTOCOL MAGNESIUM 1 DOSE IV PRN (18:10)
[2017-04-30] MEDS: GABAPENTIN 100 MG CAP PO SCH (21:06)
[2017-04-30] MEDS: SUCRALFATE 1 GM TAB PO SCH (21:07)
[2017-04-30] MEDS: METHOCARBAMOL 500 MG TAB PO SCH (21:07)
[2017-05-01] MEDS: HEPARIN/DEXTROSE 500 ML IV SCH ×2 (00:38→12:03)
[2017-05-01 04:49] LABS: INR 1.34 (0.83-1.16); PROTIME(PATIENT) 16.8 SEC (12.0-15.0)
[2017-05-01] MEDS: LEVOTHYROXINE 112 MCG TAB PO SCH (05:12)
[2017-05-01] MEDS: SUCRALFATE 1 GM TAB PO SCH ×4 (07:25→20:41)
[2017-05-01] MEDS: oxyCODONE IR 5 MG TAB PO PRN ×2 (07:26→14:13)
[2017-05-01] MEDS ORDERED: POTASSIUM CL 10 MEQ TAB PO ONE (07:36)
[2017-05-01] MEDS ORDERED: MAGNESIUM SULF 2 GM/WATER 50 ML IV ONE (09:02)
[2017-05-01] MEDS: DILTIAZEM XR 240 MG CAP PO SCH (10:23)
[2017-05-01] MEDS: SERTRALINE HCL 100 MG TAB PO SCH (10:23)
[2017-05-01] MEDS: PANTOPRAZOLE SODIUM 40 MG TAB PO SCH ×2 (10:23→20:41)
[2017-05-01] MEDS: CALCIUM CARBONATE 500 MG TAB PO SCH ×2 (10:24→20:41)
[2017-05-01] MEDS ORDERED: WARFARIN SODIUM 3 MG TAB PO ONE (16:00)
--- NOTE | 2017-05-01 18:24 | SOAPPROG ---
SO[facility] Progress Note Assessment/Plan: -s/p ORIF 03/26 tibial fibula -GI bleeding 2/2 anticoagulation with xarelto bc of RLE DVT s/p endoscopies with Dr Villaseñor HGB stable, watch closely while transitioning to coumadin on BID PPI, sucralfate per GI recs -Anemia, acute blood loss stable iron low, PO started, consider IV - ETOH abuse: Patient admits to 4 pt of vodka a week denies prior withdrawal syndrome. CIWA status/vitamins interested in cessation, CM to review resources/assistance available in community - Right leg DVT therapeutic on heparin coumadin, pharm to dose watch closely for recurrent GI bleed signs - History of C difficile - history of A Fib, with episode of RVR here now in sinus with diltiazem -electrolyte disorders of potassium and magnesium replace per protocol mag K+ stable/stop protocol -UTI stop rocephin, change to po macrobid e coli- lilly sens -hypothyroid synthroid -depression increased SSRI yesterday from 75-100 mg Disposition: unsure at this time, will depend upon stability of H and H after full anticoag with coumadin. Would likely benefit from inpt rehab, CM working on issues Subjective: Feels a bit better today. Walked with PT. No CP/SOB/abd pain. Eager to go home , but willing to consider inpt rehab also. Denies cp/sob/abd pain. Objective: Vital Signs Temp Pulse Resp BP Pulse Ox 98.5 F 77 116 H 98/60 L 97 05/01/17 15:13 05/01/17 15:13 05/01/17 15:13 05/01/17 15:13 05/01/17 15:13 Microbiology 04/28/17 05:30 Urine Culture - Final Urine,Clean Catch Escherichia Coli Laboratory Results 04/30/17 04:20 05/01/17 04:30 04/30/17 05/01/17 05/02/17 11:59 11:59 11:59 Intake Total 1135.6 736 368 Output Total 150 50 Balance 1135.6 586 318 PT 16.8 SEC (12.0-15.0) H 05/01/17 04:30 INR 1.34 (0.83-1.16) H 05/01/17 04:30 - Pending Discharge Pending Discharge Within 48 Hours: Yes Pending Discharge Date: 05/03/17 Pending Discharge Time: 11:00 Physical Exam - Physical Exam General Appearance: alert, no apparent distress Respiratory: lungs clear, normal breath sounds, No respiratory distress Cardiac/Chest: regular rate, rhythm, systolic murmur (-06/05 (essentially nl echo 02/2017 revwd)), No edema Abdomen: normal bowel sounds, non-tender, soft, No distended, No guarding, No rebound Skin: warm/dry Neuro/Psych: alert, normal mood/affect, No cognition abnormalities, No speech abnormalities, No depressed affect ICD10 Worksheet Patient Problems: Problems Problem Status Onset Abdominal pain Acute Alcohol abuse Acute Alcohol withdrawal Acute Alcohol withdrawal Acute Ankle fracture Acute Atrial fibrillation with RVR Acute C. difficile diarrhea Acute 09/23/16 Nausea & vomiting Acute Nausea and vomiting in adult Acute Vomiting Acute
[2017-05-01] MEDS: METHOCARBAMOL 500 MG TAB PO SCH (20:41)
[2017-05-01] MEDS: GABAPENTIN 100 MG CAP PO SCH (20:41)
[2017-05-02] MEDS: HEPARIN/DEXTROSE 500 ML IV SCH ×2 (00:57→12:33)
[2017-05-02 05:24] LABS: INR 1.72 (0.83-1.16); PROTIME(PATIENT) 20.3 SEC (12.0-15.0)
[2017-05-02] MEDS: LEVOTHYROXINE 112 MCG TAB PO SCH (05:27)
[2017-05-02] MEDS: SUCRALFATE 1 GM TAB PO SCH ×4 (06:27→19:35)
[2017-05-02] MEDS: oxyCODONE IR 5 MG TAB PO PRN ×5 (06:27→19:39)
[2017-05-02] MEDS: ONDANSETRON 4 MG/2 ML VIAL IVP PRN ×2 (06:28→20:46)
[2017-05-02] MEDS ORDERED: MAGNESIUM SULF 1 GM/DEXTROSE 100 ML IV ONE (06:35)
[2017-05-02] MEDS: SERTRALINE HCL 100 MG TAB PO SCH (08:12)
[2017-05-02] MEDS: PANTOPRAZOLE SODIUM 40 MG TAB PO SCH ×2 (08:12→19:36)
[2017-05-02] MEDS: DILTIAZEM XR 240 MG CAP PO SCH (08:13)
[2017-05-02] MEDS: NITROFURANTOIN MACROBID 100 MG CAP PO SCH ×2 (08:13→19:36)
--- NOTE | 2017-05-02 08:43 | HOSPPROG ---
Hospitalist Progress Note Assessment/Plan: #Acute blood loss anemia: nonbleeding gastric ulcer on EGD. IV PPI #Right leg DVT: now on heparin and coumadin. Monitor closely for bleed #Etoh abuse: no e/o withdrawal #E coli: Macrobid #Tib/fib: s/p ORIF #h/o C diff #A fib with RVR: now in NSR. Diltiazem #Acute hypoxic resp failure #Depression: #Hypothyroidism: LT4 #Deconditioning: PT. Home care. Patient would rather go home than SNF #Diet: regular #DVT ppx: heparin gtt #Disp: warrants inpt admission for GIB, needs monitored anticoagulation, PT Subjective: c/o midline abd pain, feels sharp. Worse with sitting up Objective: Vital Signs Temp Pulse Resp BP Pulse Ox 36.9 C 87 14 119/74 94 05/02/17 07:42 05/02/17 07:42 05/02/17 07:42 05/02/17 07:42 05/02/17 07:42 Microbiology 04/28/17 05:30 Urine Culture - Final Urine,Clean Catch Escherichia Coli Laboratory Results 05/02/17 04:46 05/02/17 04:46 05/01/17 05/02/17 05/03/17 05:59 05:59 05:59 Intake Total 736 907 Output Total 201 Balance 736 706 PT 20.3 SEC (12.0-15.0) H 05/02/17 04:46 INR 1.72 (0.83-1.16) H 05/02/17 04:46 - Physical Exam Constitutional: other (thin) Eyes: PERRL Ears, Nose, Mouth, Throat: moist mucous membranes Cardiovascular: regular rate and rhythym Respiratory: no respiratory distress, no rales or rhonchi Gastrointestinal: normoactive bowel sounds, tenderness (LLQ, no rebound, no mass or bruising) Genitourinary: no bladder fullness Skin: warm Musculoskeletal: full muscle strength Neurologic: AAOx3, CN II-XII Intact Psychiatric: flat affect, agitated Lymph, Heme, Immunologic: no cervical LAD ICD10 Worksheet Patient Problems: Problems Problem Status Onset Abdominal pain Acute Alcohol abuse Acute Alcohol withdrawal Acute Alcohol withdrawal Acute Ankle fracture Acute Atrial fibrillation with RVR Acute C. difficile diarrhea Acute 09/23/16 Nausea & vomiting Acute Nausea and vomiting in adult Acute Vomiting Acute
[2017-05-02] MEDS: CALCIUM CARBONATE 500 MG TAB PO SCH ×2 (11:39→19:35)
[2017-05-02] MEDS: FERROUS SULFATE 140 MG TAB.ER PO SCH (11:39)
[2017-05-02] MEDS ORDERED: WARFARIN SODIUM 3 MG TAB PO ONE (16:00)
--- NOTE | 2017-05-02 17:27 | ASMTCMCOM ---
CM Note CM Note Notes: Received call from Shweta at inpt rehab, they decline pt. CM spoke w/pt she refuses going to SNF, advised pt we could set up homecare but would be another homecare agency as [facility] refuses to take her back. Per Renay OQUENDO at [facility] [phone]. States pt can't take care of herself, pt peeing and pooping all over, impaired judgement, drinking and not safe enviornment. SW states pt was told several times that they could not take care of her anymore d/t non compliance and safety issues. CM discussed with pt the need to choose another hc agency and pt seemed to be surpised that [facility] would not take her back. Pt also stated that she fired her non skilled homecare agency ([facility]). CM advised pt that she should find another nonskillled agency and CM would help with Skilled hc. Of note, pt seemed not to get the concept of the difference between skilled and non skilled homecare and what the CM could and could not do. [facility] and [facility] have accepted. Pt is complex, and likely will need JERE, miya plan suboptimal if pt can't take care of self but is decisional and per [facility] SW scored high on slums. DC Plan: TBD Date Signed: 05/02/2017 05:27 PM Electronically Signed By:Minna Delgado RN
[2017-05-02] MEDS: METHOCARBAMOL 500 MG TAB PO SCH (19:35)
[2017-05-02] MEDS: GABAPENTIN 100 MG CAP PO SCH (19:36)
[2017-05-02] MEDS: LORazepam 2 MG/ML INJ IVP PRN (20:41)
[2017-05-02 21:22] LABS: PLATELET COUNT 126 10^3/uL (150-400)
[2017-05-02] MEDS ORDERED: IOPAMIDOL (ISOVUE 370) 100 ML BTL IV ONE (22:08)
[2017-05-02] MEDS ORDERED: NALOXONE HCL 0.4 MG/ML INJ IVP PRN (23:14)
--- NOTE | 2017-05-02 23:37 | HOSPPROG ---
Hospitalist Progress Note Assessment/Plan: Hospitalist Night Float Note Sign out received from Dr. Anton regarding abnormal pelvic US noting possible hematoma. Follow up on CT abd/pelvis that was subsequently ordered showing L rectus hematoma with possible contrast layering. Patient with some increasing abdominal pain throughout the day and limited mobility. Patient denies any enlargement in abdomen and pain remains stable. Heparin gtt discontinued for hx RLE DVT and afib. previously on xarelto but presented with c/o melanic stools. h/h slowly trending down since admission. EGD without significant findings. pt on ppi. Discussed case with surgery. recs also d/c heparin. will review CT. Objective: Vital Signs Temp Pulse Resp BP Pulse Ox 36.8 C 85 16 113/72 97 05/02/17 23:15 05/02/17 23:15 05/02/17 23:15 05/02/17 23:15 05/02/17 23:15 Laboratory Results 05/02/17 21:15 05/02/17 04:46 05/01/17 05/02/17 05/03/17 05:59 05:59 05:59 Intake Total 736 907 411 Output Total 201 Balance 736 706 411 PT 20.3 SEC (12.0-15.0) H 05/02/17 04:46 INR 1.72 (0.83-1.16) H 05/02/17 04:46 ICD10 Worksheet Patient Problems: Problems Problem Status Onset Abdominal pain Acute Alcohol abuse Acute Alcohol withdrawal Acute Alcohol withdrawal Acute Ankle fracture Acute Atrial fibrillation with RVR Acute C. difficile diarrhea Acute 09/23/16 Nausea & vomiting Acute Nausea and vomiting in adult Acute Vomiting Acute
--- NOTE | 2017-05-03 00:07 | SOAPPROG ---
[facility] Progress Note Assessment/Plan: Assessment: 61 female with spontaneous left rectus hematoma while heparinized hct 24/ pt = 20 exam shows 15 cm left rectus hematoma which is tender/ rest of abd soft ct shows some extravasation will need reversal of anticoags/ but some risks with DVT Plan:TXA, protamine/ serial hct and check coags/ will follow 05/03/17 00:03 Objective: Vital Signs Temp Pulse Resp BP Pulse Ox 36.8 C 85 16 113/72 97 05/02/17 23:15 05/02/17 23:15 05/02/17 23:15 05/02/17 23:15 05/02/17 23:15 Laboratory Results 05/02/17 21:15 05/02/17 04:46 05/01/17 05/02/17 05/03/17 05:59 05:59 05:59 Intake Total 736 907 411 Output Total 201 Balance 736 706 411 PT 20.3 SEC (12.0-15.0) H 05/02/17 04:46 INR 1.72 (0.83-1.16) H 05/02/17 04:46 ICD10 Worksheet Patient Problems: Problems Problem Status Onset Abdominal pain Acute Alcohol abuse Acute Alcohol withdrawal Acute Alcohol withdrawal Acute Ankle fracture Acute Atrial fibrillation with RVR Acute C. difficile diarrhea Acute 09/23/16 Nausea & vomiting Acute Nausea and vomiting in adult Acute Vomiting Acute
[2017-05-03] MEDS ORDERED: PROTAMINE SULFATE 50 MG/5 ML VIAL IVP ONE (00:08)
[2017-05-03] MEDS ORDERED: TRANEXAMIC ACID 1,000 MG in NS 100 ML IV ONE (00:08)
[2017-05-03] MEDS: oxyCODONE IR 5 MG TAB PO PRN ×3 (00:38→14:10)
[2017-05-03 01:07] LABS: INR 2.15 (0.83-1.16)
[2017-05-03] MEDS: LEVOTHYROXINE 112 MCG TAB PO SCH (04:28)
[2017-05-03 04:51] LABS: INR 2.11 (0.83-1.16); PROTIME(PATIENT) 23.7 SEC (12.0-15.0)
[2017-05-03] MEDS: NITROFURANTOIN MACROBID 100 MG CAP PO SCH ×3 (08:12→21:51)
[2017-05-03] MEDS: FERROUS SULFATE 140 MG TAB.ER PO SCH ×3 (08:13→09:18)
[2017-05-03] MEDS: DILTIAZEM XR 240 MG CAP PO SCH ×2 (08:13→09:19)
[2017-05-03] MEDS: HYDROmorphONE/DILAUDID 1 MG/ML INJ IVP PRN (08:23)
[2017-05-03] MEDS ORDERED: MAGNESIUM SULF 1 GM/DEXTROSE 100 ML IV ONE (08:31)
[2017-05-03] MEDS: PANTOPRAZOLE SODIUM 40 MG TAB PO SCH ×2 (09:18→21:51)
[2017-05-03] MEDS: CALCIUM CARBONATE 500 MG TAB PO SCH ×2 (09:18→21:51)
[2017-05-03] MEDS: SERTRALINE HCL 100 MG TAB PO SCH (09:19)
[2017-05-03] MEDS: SUCRALFATE 1 GM TAB PO SCH ×4 (09:19→21:51)
--- NOTE | 2017-05-03 11:40 | SOAPPROG ---
[facility] Progress Note Assessment/Plan: Assessment: 61 female with spontaneous left rectus hematoma while heparinized hct 24/ pt = 20 exam shows 15 cm left rectus hematoma which is tender/ rest of abd soft ct shows some extravasation will need reversal of anticoags/ but some risks with DVT Plan:TXA, protamine/ serial hct and check coags/ will follow 05/03/17 00:03 05/03/17 11:37 ABDOMEN SOFT BUT STILL IN PAIN/UNCHANGED LEFT RECTUS HEMATOMA HEPARIN. BUT PROTIME STILL PROLONGED DIFFICULT SITUATION WITH IN NEED FOR TREATMENT FOR DVT VERSUS THE NEED FOR STOPPING ANTICOAGULATION BECAUSE OF A RECTUS HEMATOMA WITH ACTIVE EXTRAVASATION ON CT WILL TREAT WITH FFP TO REVERSE HER PROTIME/IF ANTICOAGULATION IS ABSOLUTELY NECESSARY THEN SHE SHOULD CONSIDER A FILTER AND SURGERY MEDIALLY TO TAKE CARE OF THE PROBLEM. IF SHE CAN BE OFF FOR ANTICOAGULATION TEMPORARILY A SHE MAY BE ABLE TO AVOID SURGERY FOR DRAINAGE OF THIS HEMATOMA. IR COULD HELP EMBOLIZE A ARTERIAL BLEEDER BUT DOES NOTHING TO EVACUATE THE HEMATOMA AND THE PAIN FROM THAT/WILL DISCUSS WITH INTERNAL MEDICINE Objective: Vital Signs Temp Pulse Resp BP Pulse Ox 36.8 C 92 16 104/64 98 05/03/17 11:22 05/03/17 11:22 05/03/17 11:22 05/03/17 11:22 05/03/17 11:22 Microbiology 04/28/17 04:35 Blood Culture - Final Blood 04/28/17 04:40 Blood Culture - Final Blood Laboratory Results 05/03/17 04:30 05/02/17 04:46 05/02/17 05/03/17 05/04/17 05:59 05:59 05:59 Intake Total 907 911 Output Total 201 Balance 706 911 PT 23.7 SEC (12.0-15.0) H 05/03/17 04:30 INR 2.11 (0.83-1.16) H 05/03/17 04:30 ICD10 Worksheet Patient Problems: Problems Problem Status Onset GI bleed Acute Abdominal pain Acute Alcohol abuse Acute Alcohol withdrawal Acute Alcohol withdrawal Acute Ankle fracture Acute Atrial fibrillation with RVR Acute C. difficile diarrhea Acute 09/23/16 Nausea & vomiting Acute Nausea and vomiting in adult Acute Vomiting Acute
[2017-05-03 12:44] LABS: PLATELET COUNT 162 10^3/uL (150-400)
--- NOTE | 2017-05-03 13:52 | HOSPPROG ---
Hospitalist Progress Note Assessment/Plan: New pt encounter Medically complex #Acute Left Rectus Hematoma while on AC #Acute blood loss anemia: - due to nonbleeding gastric ulcer on EGD. -due to left rectus Hematom #Right femoral vein non occlusive DVT: p #Etoh abuse: no e/o withdrawal #E coli: Macrobid #Tib/fib: s/p ORIF #h/o C diff #A fib with RVR: now in NSR. Diltiazem -was not previously on AC -CHADS2: 0 #Acute hypoxic resp failure #Depression: #Hypothyroidism: LT4 #Deconditioning: PT. Home care. Patient would rather go home than SNF #Diet: regular Plan: -Recheck US LE to determine extent of Clot, any changes -Off AC for now -Hold Aspirin -Cont Diltiazem XR -Replace Mg PRN -Cont Protonix and Carafate -Will make decision on AC based on US and whether she goes back into Afib. CHADS2: 0 -Telemetry, will start -Transfuse one unit PRBC -If possible, would favor conservative mgmt of the hematoma -SCD's -Discussed with Dr. Ventura Subjective: Hgb is decreased. On Diltiazem, not tachycardic. Feels weak. Abd pain is significantly better. No CP or SOB Objective: Vital Signs Temp Pulse Resp BP Pulse Ox 36.8 C 92 16 104/64 98 05/03/17 11:22 05/03/17 11:22 05/03/17 11:22 05/03/17 11:22 05/03/17 11:22 Microbiology 04/28/17 04:35 Blood Culture - Final Blood 04/28/17 04:40 Blood Culture - Final Blood Laboratory Results 05/03/17 12:25 05/02/17 04:46 05/02/17 05/03/17 05/04/17 05:59 05:59 05:59 Intake Total 907 911 Output Total 201 Balance 706 911 PT 23.7 SEC (12.0-15.0) H 05/03/17 04:30 INR 2.11 (0.83-1.16) H 05/03/17 04:30 - Physical Exam Constitutional: no apparent distress Eyes: PERRL Ears, Nose, Mouth, Throat: moist mucous membranes, hearing normal, ears appear normal Cardiovascular: regular rate and rhythym, No edema Respiratory: no respiratory distress, no rales or rhonchi, clear to auscultation Gastrointestinal: normoactive bowel sounds Skin: warm Musculoskeletal: generalized weakness Neurologic: AAOx3 Psychiatric: interacting appropriately, not anxious, not encephalopathic, thought process linear Lymph, Heme, Immunologic: No petechiae ICD10 Worksheet Patient Problems: Problems Problem Status Onset GI bleed Acute Abdominal pain Acute Alcohol abuse Acute Alcohol withdrawal Acute Alcohol withdrawal Acute Ankle fracture Acute Atrial fibrillation with RVR Acute C. difficile diarrhea Acute 09/23/16 Nausea & vomiting Acute Nausea and vomiting in adult Acute Vomiting Acute
--- NOTE | 2017-05-03 17:09 | ASMTCMCOM ---
CM Note CM Note Notes: Valentina from [facility] came to meet w/ Pt. today to assess for Medicaid LTC placement. Pt. refuses to stay 30 days at SNF per Valentina. Angely met w/ Pt. today in room to discuss her d/c plan options. Pt. would like [facility]hab to re-assess her for consideration for admission. Pt. feels she needs to be stronger with more functionality before going home. Left [facility] for Shweta Dodd today. [facility] is set up as current plan. Pt. had [facility] unskilled caregivers as well, but tearfully spoke of her frustration with the quality of their work. Please read colleague's note from 05/02/17 about details regarding [facility]'s description of Pt's ETOH problem and the condition of the home. Per [facility], APS declined to take case stating Pt. is decisional. SW to follow w/ Pt. Date Signed: 05/03/2017 05:08 PM Electronically Signed By:Marjorie Brothers LCSW
[2017-05-03] MEDS: METHOCARBAMOL 500 MG TAB PO SCH (21:51)
[2017-05-03] MEDS: GABAPENTIN 100 MG CAP PO SCH (21:51)
[2017-05-04] MEDS: LEVOTHYROXINE 112 MCG TAB PO SCH (05:25)
[2017-05-04 05:42] LABS: PLATELET COUNT 167 10^3/uL (150-400)
[2017-05-04 06:35] LABS: INR 1.6 (0.83-1.16); PROTIME(PATIENT) 19.2 SEC (12.0-15.0)
[2017-05-04] MEDS ORDERED: MAGNESIUM SULF 1 GM/DEXTROSE 100 ML IV ONE (08:14)
[2017-05-04] MEDS: SUCRALFATE 1 GM TAB PO SCH ×4 (08:40→21:48)
[2017-05-04] MEDS: PANTOPRAZOLE SODIUM 40 MG TAB PO SCH ×2 (08:43→21:48)
[2017-05-04] MEDS: FERROUS SULFATE 140 MG TAB.ER PO SCH (08:43)
[2017-05-04] MEDS: CALCIUM CARBONATE 500 MG TAB PO SCH ×2 (08:43→21:48)
[2017-05-04] MEDS: SERTRALINE HCL 100 MG TAB PO SCH (08:43)
[2017-05-04] MEDS: DILTIAZEM XR 240 MG CAP PO SCH (08:43)
[2017-05-04] MEDS: oxyCODONE IR 5 MG TAB PO PRN ×2 (08:46→15:51)
--- NOTE | 2017-05-04 14:05 | HOSPPROG ---
Hospitalist Progress Note Assessment/Plan: Medically complex #Acute Left Rectus Hematoma while on AC #Acute blood loss anemia: - due to nonbleeding gastric ulcer on EGD. -due to left rectus Hematom #Right femoral vein non occlusive DVT: p #Etoh abuse: no e/o withdrawal #E coli: Macrobid #Tib/fib: s/p ORIF #h/o C diff #A fib with RVR: now in NSR. Diltiazem -was not previously on AC -CHADS2: 0 #Acute hypoxic resp failure #Depression: #Hypothyroidism: LT4 #Deconditioning: PT. Home care. Patient would rather go home than SNF #Diet: regular Plan: -I d/w IR. No need for filter at this time. Recheck US in one month or if symptomatic -Off AC -conservative mgmt of hematoma -Hold Aspirin -Cont Diltiazem XR, some borderline low bp noted. I am concerned that if we back off dose she may go into afib. will monitor for now -Replace Mg PRN -Cont Protonix and Carafate -Telemetry -Transfuse one additional unit PRBC -SCD's -Discussed with Dr. Ventura -d/w IR Keep inpatient. If doing well from the hematoma, could consider d/c tomorrow or the next Subjective: still with abd pain. US reviewed. No CP or SOB. Still in SR. Objective: Vital Signs Temp Pulse Resp BP Pulse Ox 36.2 C 87 17 95/58 L 97 05/04/17 11:15 05/04/17 11:15 05/04/17 11:15 05/04/17 11:15 05/04/17 11:15 Microbiology 04/28/17 04:35 Blood Culture - Final Blood 04/28/17 04:40 Blood Culture - Final Blood Laboratory Results 05/04/17 05:35 05/04/17 05:35 05/03/17 05/04/17 05/05/17 05:59 05:59 05:59 Intake Total 911 1035 400 Balance 911 1035 400 PT 19.2 SEC (12.0-15.0) H 05/04/17 06:05 INR 1.60 (0.83-1.16) H 05/04/17 06:05 - Physical Exam Constitutional: no apparent distress Eyes: PERRL, EOMI Ears, Nose, Mouth, Throat: moist mucous membranes, hearing normal Cardiovascular: regular rate and rhythym, No edema Respiratory: no respiratory distress, no rales or rhonchi Gastrointestinal: normoactive bowel sounds, soft, non-tender abdomen Skin: warm Neurologic: AAOx3 Psychiatric: interacting appropriately, not anxious, not encephalopathic Lymph, Heme, Immunologic: No petechiae ICD10 Worksheet Patient Problems: Problems Problem Status Onset GI bleed Acute Abdominal pain Acute Alcohol abuse Acute Alcohol withdrawal Acute Alcohol withdrawal Acute Ankle fracture Acute Atrial fibrillation with RVR Acute C. difficile diarrhea Acute 09/23/16 Nausea & vomiting Acute Nausea and vomiting in adult Acute Vomiting Acute
--- NOTE | 2017-05-04 18:09 | ASMTCMCOM ---
CM Note CM Note Notes: Pt. working with MD to determine her course of care regarding DVT and hematoma intervention. SWer met w/ Pt. again today. Pt. upset to hear that [facility] would not take her again for home health care needs. SWer explained that there was apparently an issue with her home cleanliness and her drinking. Pt. tearful. SWer let Pt. know [facility] would take her case. Pt. OK with plan. SWer provided Pt. with new unskilled caregivers at her request. Pt. does not want to continue to use [facility]. Provided info on [facility], [facility], [facility], and [employer]. Also gave information regarding [employer] [facility] [employer]. Pt. grateful. Pt. struggles to keep track of who is skilled provider and who is unskilled provider. Shweta Tyler called Pt. this am to let her know why Inpatient Rehab declined her admission. At Shweta's suggestion, Mariar asked MD via text to write order for OT evaluation. SW to follow for d/c POC to [facility]. Confirmed Pt's address. Date Signed: 05/04/2017 06:09 PM Electronically Signed By:Marjorie Brothers LCSW
[2017-05-04] MEDS: METHOCARBAMOL 500 MG TAB PO SCH (21:48)
[2017-05-04] MEDS: GABAPENTIN 100 MG CAP PO SCH (21:48)
[2017-05-05] MEDS: LEVOTHYROXINE 112 MCG TAB PO SCH (06:12)
[2017-05-05 06:32] LABS: PLATELET COUNT 184 10^3/uL (150-400)
[2017-05-05 06:41] LABS: INR 1.56 (0.83-1.16); PROTIME(PATIENT) 18.8 SEC (12.0-15.0)
[2017-05-05] MEDS: SUCRALFATE 1 GM TAB PO SCH ×4 (08:25→20:39)
[2017-05-05] MEDS: FERROUS SULFATE 140 MG TAB.ER PO SCH (08:25)
[2017-05-05] MEDS: PANTOPRAZOLE SODIUM 40 MG TAB PO SCH ×2 (08:26→20:39)
[2017-05-05] MEDS: CALCIUM CARBONATE 500 MG TAB PO SCH ×2 (08:26→20:39)
[2017-05-05] MEDS: DILTIAZEM XR 240 MG CAP PO SCH (08:26)
[2017-05-05] MEDS: SERTRALINE HCL 100 MG TAB PO SCH (08:26)
[2017-05-05] MEDS: ONDANSETRON 4 MG/2 ML VIAL IVP PRN ×3 (09:13→23:22)
[2017-05-05] MEDS: PROMETHAZINE HCL 25 MG/ML INJ IVP PRN ×2 (10:29→19:17)
--- NOTE | 2017-05-05 11:48 | SOAPPROG ---
SOAP Progress Note Assessment/Plan: Assessment/Plan: - 61yo F c rectus sheath hematoma abdominal exam stable, tender but soft and tolerating diet and voiding - received transfusion yesterday but HB stable this AM - ok with dc today, would cont to hold anticoag 05/05/17 11:47 Subjective: Having some nausea, and CURTIS Objective: Vital Signs Temp Pulse Resp BP Pulse Ox 37.1 C 86 16 106/61 94 05/05/17 10:55 05/05/17 10:55 05/05/17 10:55 05/05/17 10:55 05/05/17 10:55 Laboratory Results 05/05/17 06:00 05/05/17 06:00 05/04/17 05/05/17 05/06/17 05:59 05:59 05:59 Intake Total 1035 2150 Balance 1035 2150 PT 18.8 SEC (12.0-15.0) H 05/05/17 06:00 INR 1.56 (0.83-1.16) H 05/05/17 06:00 ICD10 Worksheet Patient Problems: Problems Problem Status Onset GI bleed Acute Abdominal pain Acute Alcohol abuse Acute Alcohol withdrawal Acute Alcohol withdrawal Acute Ankle fracture Acute Atrial fibrillation with RVR Acute C. difficile diarrhea Acute 09/23/16 Nausea & vomiting Acute Nausea and vomiting in adult Acute Vomiting Acute
--- NOTE | 2017-05-05 12:30 | HOSPPROG ---
Hospitalist Progress Note Assessment/Plan: Medically complex #Acute Left Rectus Hematoma while on AC -Holding AC -Cleared for D/c per surgery #Acute blood loss anemia: - due to nonbleeding gastric ulcer on EGD. -due to left rectus Hematoma -s/p 2 units prbc transfusion #Right femoral vein non occlusive DVT: -no indication for IVC filter per IR -Not on AC -Needs repeat US around Jun 05 to determine if clot has increased #Etoh abuse: no e/o withdrawal #?Alcohol related dementia #E coli: Macrobid #Tib/fib: s/p ORIF #h/o C diff #A fib with RVR: now in NSR. Diltiazem -was not previously on AC -CHADS2: 0 #Acute hypoxic resp failure #Depression: #Hypothyroidism: LT4 #Deconditioning: PT. Home care. Patient would rather go home than SNF #Diet: regular Plan: -Hold AC -Will need f/u of Hematoma -conservative mgmt of hematoma -Hold Aspirin -Cont Diltiazem XR, some borderline low bp noted. I am concerned that if we back off dose she may go into afib. will monitor for now -Replace Mg PRN -Cont Protonix and Carafate -Telemetry -SCD's -medically stable for d/c once placement is obtained Subjective: awaiting placement. She is very upset and confused today. She reports that I told her she had breast cancer and offered mastectomy. I attempted to clarify and make her less upset but was unable to. I had our charge nurse come to the room to witness. Objective: Vital Signs Temp Pulse Resp BP Pulse Ox 37.1 C 86 16 106/61 94 05/05/17 10:55 05/05/17 10:55 05/05/17 10:55 05/05/17 10:55 05/05/17 10:55 Laboratory Results 05/05/17 06:00 05/05/17 06:00 05/04/17 05/05/17 05/06/17 05:59 05:59 05:59 Intake Total 1035 2150 Balance 1035 2150 PT 18.8 SEC (12.0-15.0) H 05/05/17 06:00 INR 1.56 (0.83-1.16) H 05/05/17 06:00 - Physical Exam Constitutional: no apparent distress Eyes: PERRL, EOMI Ears, Nose, Mouth, Throat: moist mucous membranes, hearing normal Cardiovascular: regular rate and rhythym, No edema Respiratory: no respiratory distress, no rales or rhonchi Gastrointestinal: normoactive bowel sounds, tenderness, No soft, non-tender abdomen (soft), No rebound, No distension Genitourinary: no bladder fullness Skin: warm Neurologic: No AAOx3 Psychiatric: encephalopathic Lymph, Heme, Immunologic: No petechiae ICD10 Worksheet Patient Problems: Problems Problem Status Onset GI bleed Acute Abdominal pain Acute Alcohol abuse Acute Alcohol withdrawal Acute Alcohol withdrawal Acute Ankle fracture Acute Atrial fibrillation with RVR Acute C. difficile diarrhea Acute 09/23/16 Nausea & vomiting Acute Nausea and vomiting in adult Acute Vomiting Acute
--- NOTE | 2017-05-05 16:53 | ASMTCMCOM ---
CM Note CM Note Notes: Today SWer consulted with contracting engineer and MD about Pt. Both believe that Pt. is not safe to go home. Pt. still with lots of confusion. Can't remember what she has been told about her medical problems. Deconditioned. contracting engineer states Pt. may be more amenable to LTC stay now after some of their discussions. MD would like to keep Pt. until LTC placement can be made. Pt. needs another sit down discussion about LTC stay. If Pt. amenable, please call Valentina from [facility] to reinitiate Medicaid LTC stay process - confirm Jenny application is also pending. Valentina from [facility] was turned away by Pt. on 05/03/17. If Pt. not interested in LTC, will need to consider calling Ethics for decisionality review. CM to follow for d/c POC. Date Signed: 05/05/2017 04:52 PM Electronically Signed By:Marjorie Brothers LCSW
--- NOTE | 2017-05-05 18:18 | SOAPPROG ---
[facility] Progress Note Assessment/Plan: Assessment: 61 female with spontaneous left rectus hematoma while heparinized hct 24/ pt = 20 exam shows 15 cm left rectus hematoma which is tender/ rest of abd soft ct shows some extravasation will need reversal of anticoags/ but some risks with DVT Plan:TXA, protamine/ serial hct and check coags/ will follow 05/03/17 00:03 05/03/17 11:37 ABDOMEN SOFT BUT STILL IN PAIN/UNCHANGED LEFT RECTUS HEMATOMA HEPARIN. BUT PROTIME STILL PROLONGED DIFFICULT SITUATION WITH IN NEED FOR TREATMENT FOR DVT VERSUS THE NEED FOR STOPPING ANTICOAGULATION BECAUSE OF A RECTUS HEMATOMA WITH ACTIVE EXTRAVASATION ON CT WILL TREAT WITH [facility]FP TO REVERSE HER PROTIME/IF ANTICOAGULATION IS ABSOLUTELY NECESSARY THEN SHE SHOULD CONSIDER A FILTER AND SURGERY MEDIALLY TO TAKE CARE OF THE PROBLEM. IF SHE CAN BE OFF FOR ANTICOAGULATION TEMPORARILY A SHE MAY BE ABLE TO AVOID SURGERY FOR DRAINAGE OF THIS HEMATOMA. IR COULD HELP EMBOLIZE A ARTERIAL BLEEDER BUT DOES NOTHING TO EVACUATE THE HEMATOMA AND THE PAIN FROM THAT/WILL DISCUSS WITH INTERNAL MEDICINE 05/05/17 18:16 PATIENT SEEN IN 05/04/2017 / PAIN LEVEL IS DECREASED IN HER SHE IS MORE COMFORTABLE ALTHOUGH HER HEMATOMA IS STILL QUITE TENDER IN THE LEFT RECTUS AREA. INR IS BEING REVERSED. ULTRASOUND OF HER FEMORAL VEIN SHOWS NONOCCLUSIVE CLOT AND HER VITAL SIGNS ARE STABLE. PLAN IS CONTINUE OBSERVATION SURGERY IF HER PAIN FAILS TO RESOLVE OVER THE HEMATOMA CONTINUES TO ENLARGE Objective: Vital Signs Temp Pulse Resp BP Pulse Ox 37.6 C 85 16 107/60 91 L 05/05/17 15:36 05/05/17 15:36 05/05/17 15:36 05/05/17 15:36 05/05/17 15:36 Laboratory Results 05/05/17 06:00 05/05/17 06:00 05/04/17 05/05/17 05/06/17 05:59 05:59 05:59 Intake Total 1035 2150 Output Total 650 Balance 1035 2150 -650 PT 18.8 SEC (12.0-15.0) H 05/05/17 06:00 INR 1.56 (0.83-1.16) H 05/05/17 06:00 ICD10 Worksheet Patient Problems: Problems Problem Status Onset GI bleed Acute Abdominal pain Acute Alcohol abuse Acute Alcohol withdrawal Acute Alcohol withdrawal Acute Ankle fracture Acute Atrial fibrillation with RVR Acute C. difficile diarrhea Acute 09/23/16 Nausea & vomiting Acute Nausea and vomiting in adult Acute Vomiting Acute
[2017-05-05] MEDS: METHOCARBAMOL 500 MG TAB PO SCH (20:39)
[2017-05-05] MEDS: GABAPENTIN 100 MG CAP PO SCH (20:39)
[2017-05-06] MEDS: LORazepam 2 MG/ML INJ IVP PRN (00:42)
--- NOTE | 2017-05-06 01:09 | GCON ---
[f rep st] CONSULTATION DATE OF CONSULTATION: 05/02/2017 HISTORY OF PRESENT ILLNESS: The patient is a 61-year-old female. I was asked to consult on because of a large left rectus hematoma. The patient has developed significant pain and swelling in the left rectus and a CT scan demonstrates a large 15 cm contained hematoma. She has been on anticoagulation for atrial fibrillation and DVT. She has also had a recent upper GI bleed and underwent endoscopy. Her hematocrit has dropped down to 22 and her INR is still 2. ALLERGIES: Sulfa. MEDICATIONS: Synthroid, calcium, Zoloft and herbal supplements. PAST MEDICAL HISTORY: Includes tib-fib ORIF, tonsillectomy, atrial fibrillation, history of pancreat itis secondary to ETOH use, anemia, depression, and hypothyroidism. She also has scoliosis and chron ic back pain. REVIEW OF SYSTEMS: Negative on a 10-point review of systems. Specifically, she does not smoke and s he presently denies any cardiac or pulmonary symptoms. PHYSICAL EXAMINATION: GENERAL: Reveals an alert 61-year-old female, who is in no acute distress, af ebrile. HEAD AND NECK: Reveals no adenopathy, icterus, or oral lesions. Carotids are symmetrical w ithout bruits. Neck exam reveals it to be supple and nontender. CHEST: Reveals symmetrical breath sounds and nontender chest. COR: Regular rhythm without murmurs. ABDOMEN: Soft. She has very ten jarret hematoma in the left lower rectus sheath area and no palpable hernias. There is no true ecchymos is. EXTREMITIES: Benign with full pulses. PSYCH: Reveals her to be alert, cooperative, and orient ed. NEUROLOGIC: Physiologic. IMPRESSION: Spontaneous rectus hematoma which has had some extravasation on CT scan. RECOMMENDATIONS: Would be reversal of her anticoagulation, ice packs to the area, and surgery if nec essary to drain the hematoma and stop the bleeding. If it does not respond to reversal of her antico agulation, she could have IR embolization of her epigastric vessels which might stop the bleeding, bu t would not evacuate the hematoma for her comfort. PLAN: Will follow with you but will stop the heparin and reverse her INR. /[id number]/MODL
[2017-05-06] MEDS: PROMETHAZINE HCL 25 MG/ML INJ IVP PRN ×2 (05:43→13:06)
[2017-05-06] MEDS: LEVOTHYROXINE 112 MCG TAB PO SCH (05:43)
[2017-05-06 05:50] LABS: INR 1.3 (0.83-1.16); PROTIME(PATIENT) 16.4 SEC (12.0-15.0)
[2017-05-06] MEDS ORDERED: MAGNESIUM SULF 2 GM/WATER 50 ML IV ONE (07:25)
[2017-05-06] MEDS: SUCRALFATE 1 GM TAB PO SCH ×4 (07:56→20:16)
[2017-05-06] MEDS: ONDANSETRON 4 MG/2 ML VIAL IVP PRN (08:16)
[2017-05-06] MEDS: FERROUS SULFATE 140 MG TAB.ER PO SCH (09:19)
[2017-05-06] MEDS: SERTRALINE HCL 100 MG TAB PO SCH (09:19)
[2017-05-06] MEDS: CALCIUM CARBONATE 500 MG TAB PO SCH ×2 (09:19→20:15)
[2017-05-06] MEDS: PANTOPRAZOLE SODIUM 40 MG TAB PO SCH ×2 (09:19→20:15)
[2017-05-06] MEDS: DILTIAZEM XR 240 MG CAP PO SCH (09:19)
[2017-05-06] MEDS: HYDROmorphONE/DILAUDID 1 MG/ML INJ IVP PRN ×2 (14:19→18:39)
--- NOTE | 2017-05-06 14:45 | HOSPPROG ---
Hospitalist Progress Note Assessment/Plan: 61 yo alcoholic female with hx of pAfib who was diagnosed with non occlusive right femoral DVT in March and started on AC admitted with acute GI Bleed. Endoscopy did not reveal a source and she spontaneously stopped bleeding. AC was restarted and she developed an acute left rectus Hematoma. AC was stopped. conservative mgmt of hematoma has been followed. She is off AC. She did go into Afib briefly 2 days ago but now in SR. She has chronic encephalopathy and is felt not to be safe for discharge to home. #Acute Left Rectus Hematoma while on AC -Holding AC -Cleared for D/c per surgery #Acute blood loss anemia: - due to nonbleeding gastric ulcer on EGD. -due to left rectus Hematoma -s/p 2 units prbc transfusion #Right femoral vein non occlusive DVT: -no indication for IVC filter per IR -Not on AC -Needs repeat US around Jun 05 to determine if clot has increased #Etoh abuse: no e/o withdrawal #?Alcohol related dementia #Tib/fib: s/p ORIF #h/o C diff #A fib with RVR: now in NSR. Diltiazem -was not previously on AC -CHADS2: 0 #Acute hypoxic resp failure #Depression: #Hypothyroidism: LT4 #Deconditioning: PT. Home care. Patient would rather go home than SNF #Diet: regular Plan: -Hold AC -Will need f/u of Hematoma upon d/c -conservative mgmt of hematoma -Hold Aspirin -Cont Diltiazem XR, some borderline low bp noted. I am concerned that if we back off dose she may go into afib. will monitor for now -Replace Mg PRN -Cont Protonix and Carafate -Telemetry -SCD's -medically stable for d/c once placement is obtained. If she does not agree to placement, Ethics will need to be involved. Subjective: confused. no cp or sob. abd pain is better. abd is soft Objective: Vital Signs Temp Pulse Resp BP Pulse Ox 37.1 C 115 H 16 126/78 H 99 05/06/17 11:45 05/06/17 11:45 05/06/17 11:45 05/06/17 11:45 05/06/17 11:45 Laboratory Results 05/05/17 06:00 05/05/17 06:00 05/05/17 05/06/17 05/07/17 05:59 05:59 05:59 Intake Total 2150 500 Output Total 650 Balance 2150 -150 PT 16.4 SEC (12.0-15.0) H 05/06/17 05:30 INR 1.30 (0.83-1.16) H 05/06/17 05:30 - Physical Exam Constitutional: no apparent distress Eyes: PERRL Ears, Nose, Mouth, Throat: moist mucous membranes, hearing normal Cardiovascular: regular rate and rhythym, no murmur, rub, or gallop, No edema Respiratory: no respiratory distress, no rales or rhonchi, clear to auscultation Gastrointestinal: normoactive bowel sounds, soft, non-tender abdomen Skin: warm Musculoskeletal: generalized weakness Neurologic: AAOx3 Psychiatric: not anxious, encephalopathic, No interacting appropriately ICD10 Worksheet Patient Problems: Problems Problem Status Onset GI bleed Acute Abdominal pain Acute Alcohol abuse Acute Alcohol withdrawal Acute Alcohol withdrawal Acute Ankle fracture Acute Atrial fibrillation with RVR Acute C. difficile diarrhea Acute 09/23/16 Nausea & vomiting Acute Nausea and vomiting in adult Acute Vomiting Acute
--- NOTE | 2017-05-06 15:25 | ASMTCMCOM ---
CM Note CM Note Notes: Attempted to meet w/pt today but she was sound asleep, unable to have conversation. Will need to discuss dc plan with her in AM so we can move forward w/ACMI if pt agrees to SNF. However, CM notes from February say that she would not qualify for LT [facility] due to being over assetts. CM will need to clarify w/[employer] tomorrow as well, email sent to Tatiana w/[employer]. Date Signed: 05/06/2017 03:25 PM Electronically Signed By:Maris Martinez RN
[2017-05-06] MEDS: METHOCARBAMOL 500 MG TAB PO SCH (20:15)
[2017-05-06] MEDS: GABAPENTIN 100 MG CAP PO SCH (20:16)
[2017-05-07] MEDS: oxyCODONE IR 5 MG TAB PO PRN ×2 (05:00→15:00)
[2017-05-07] MEDS: LEVOTHYROXINE 112 MCG TAB PO SCH (05:05)
[2017-05-07] MEDS: DILTIAZEM XR 240 MG CAP PO SCH (08:09)
[2017-05-07] MEDS ORDERED: MAGNESIUM SULF 1 GM/DEXTROSE 100 ML IV ONE (08:41)
[2017-05-07] MEDS: CALCIUM CARBONATE 500 MG TAB PO SCH ×2 (09:00→20:14)
[2017-05-07] MEDS: PANTOPRAZOLE SODIUM 40 MG TAB PO SCH ×2 (09:00→20:14)
[2017-05-07] MEDS: FERROUS SULFATE 140 MG TAB.ER PO SCH (09:00)
[2017-05-07] MEDS: SERTRALINE HCL 100 MG TAB PO SCH (09:00)
[2017-05-07] MEDS: SUCRALFATE 1 GM TAB PO SCH ×4 (09:00→20:14)
--- NOTE | 2017-05-07 17:11 | ASMTCMCOM ---
CM Note CM Note Notes: Spoke with patient who has chosen [facility] and they have accepted her as a patient. D/C is planned for the morning. Patient does not want to private pay for rehab program and her income and assets make her ineligible for Medicaid LTC. Patient was also given resources for a new company to handle her laundry, shopping, meals, etc. She will set this up herself since they have to discuss fees and hours and agree upon what works for the patient. Spoke with Viola to let her know patient will be d/cing in the morning if all her labs are normal. CM will follow. Date Signed: 05/07/2017 05:11 PM Electronically Signed By:Ruthie Dill LCSW
--- NOTE | 2017-05-07 18:48 | HOSPPROG ---
Hospitalist Progress Note Assessment/Plan: S: Feels OK. Pain OK. Nervous about going home, but aware of $ issues with SNF. CM helping with options. No CP/SOB/abd pain. -s/p ORIF 03/26 tibial fibula - non occlusive Right leg DVT 03/2017 s/p heparin, coumadin but then had abd hematoma recommendation for no further AC bc of high risk further bleed no indication for IVC filter per IR Needs repeat US around Jun 05 to determine if clot has increased -GI bleeding 2/2 anticoagulation with xarelto bc of RLE DVT s/p endoscopies with Dr Villaseñor on BID PPI, sucralfate per GI recs -Anemia, acute blood loss new abd hematoma, coumadin stopped, 2 U PRBC given high risk for bleed in general iron low, PO started stable HGB - ETOH abuse: Patient admits to 4 pt of vodka a week denies prior withdrawal syndrome CIWA status/vitamins - History of C difficile - history of A Fib, with episode of RVR and paroxysmal a fib here rate controlled with diltiazem, back in sinus -electrolyte disorders of potassium and magnesium replaced per protocols -UTI stop rocephin, change to po macrobid e coli- lilly sens -hypothyroid synthroid -depression increased SSRI to 100 mg prev concern re encephalopathy/dementia from etohism not encephalopathic on exam today Likely DC home with [facility] in AM if labs stable and remains clinically stable Objective: Vital Signs Temp Pulse Resp BP Pulse Ox 99.7 F 86 20 103/66 91 L 05/07/17 15:32 05/07/17 15:32 05/07/17 15:32 05/07/17 15:32 05/07/17 15:32 Laboratory Results 05/05/17 06:00 05/05/17 06:00 05/06/17 05/07/17 05/08/17 11:59 11:59 11:59 Intake Total 500 1560 Output Total 650 200 Balance -150 1360 PT 16.4 SEC (12.0-15.0) H 05/06/17 05:30 INR 1.30 (0.83-1.16) H 05/06/17 05:30 - Time Spent With Patient Time Spent with Patient: greater than 35 minutes Time Spent with Patient: Greater than 35 minutes spent on this patients care, greater than 50% of time spent counseling, educating, and coordinating care regarding the above mentioned plan. - Pending Discharge Pending Discharge Within 24 Hours: Yes Pending Discharge Date: 05/16/17 Pending Discharge Time: 11:00 - Physical Exam Constitutional: no apparent distress, appears nourished, not in pain Ears, Nose, Mouth, Throat: moist mucous membranes Cardiovascular: regular rate and rhythym, No edema Respiratory: no respiratory distress, no rales or rhonchi, clear to auscultation Gastrointestinal: normoactive bowel sounds Skin: warm, other (bruising on L flank/mons pubis) Psychiatric: interacting appropriately, not anxious, not encephalopathic ICD10 Worksheet Patient Problems: Problems Problem Status Onset Abdominal pain Acute Alcohol abuse Acute Alcohol intoxication Acute Alcohol withdrawal Acute Alcohol withdrawal Acute Ankle fracture Acute Atrial fibrillation Acute Atrial fibrillation with RVR Acute C. difficile diarrhea Acute 09/23/16 GI bleed Acute Leg pain Acute Nausea & vomiting Acute Nausea and vomiting in adult Acute Vomiting Acute
[2017-05-07] MEDS ORDERED: LORazepam 0.5 MG TAB PO PRN (18:51)
[2017-05-07] MEDS: METHOCARBAMOL 500 MG TAB PO SCH (20:14)
[2017-05-07] MEDS: GABAPENTIN 100 MG CAP PO SCH (20:14)
[2017-05-08] MEDS: LEVOTHYROXINE 112 MCG TAB PO SCH (05:23)
[2017-05-08 05:53] LABS: INR 1.13 (0.83-1.16); PROTIME(PATIENT) 14.7 SEC (12.0-15.0)
[2017-05-08 08:07] VITALS: PULSE 83
[2017-05-08] MEDS: PANTOPRAZOLE SODIUM 40 MG TAB PO SCH (08:33)
[2017-05-08] MEDS: SUCRALFATE 1 GM TAB PO SCH ×2 (08:33→11:32)
[2017-05-08] MEDS: DILTIAZEM XR 240 MG CAP PO SCH (08:33)
[2017-05-08] MEDS: CALCIUM CARBONATE 500 MG TAB PO SCH (08:33)
[2017-05-08] MEDS: SERTRALINE HCL 100 MG TAB PO SCH (08:34)
[2017-05-08] MEDS: FERROUS SULFATE 140 MG TAB.ER PO SCH (08:34)
--- NOTE | 2017-05-08 10:34 | PDIAF ---
- Diagnosis Code Status: Full Code - Medication Management Discharge Medications: Medications to Continue on Transfer Ascorbic Acid [Vitamin C 500 mg (*)] 1,000 mg PO DAILY 03/27/17 [Last Taken Unknown] Calcium Carbonate [Oyster Shell Calcium 500 mg (*)] 500 mg PO BID 03/27/17 [ Last Taken Unknown] Aspirin [Aspirin 81mg (*)] 81 mg PO HS #30 tab.chew 04/04/17 [Last Taken Unknown ] Acetaminophen [Tylenol 325mg (*)] 650 mg PO Q4HRS PRN tab 05/08/17 [Last Taken Unknown] Diltiazem Xr [Dilacor Xr] 240 mg PO DAILY #30 cap 05/08/17 [Last Taken Unknown] Ferrous Sulfate [Slow Fe 140 MG (*)] 140 mg PO DAILY #30 tab.er 05/08/17 [Last Taken Unknown] Gabapentin [Neurontin 100 MG (*)] 100 mg PO HS #30 cap 05/08/17 [Last Taken Unknown] LORazepam [Ativan (*)] 0.5 mg PO Q4HRS PRN #10 tab 05/08/17 [Last Taken Unknown] Levothyroxine [Synthroid 112 mcg (*)] 112 mcg PO DAILY #30 tab 05/08/17 [Last Taken Unknown] Methocarbamol [Robaxin 500 mg (*)] 1,000 mg PO HS #30 tab 05/08/17 [Last Taken Unknown] Pantoprazole Sodium [Protonix 40mg (*)] 40 mg PO BID #60 tab 05/08/17 [Last Taken Unknown] Sertraline HCl [Zoloft 100mg (*)] 100 mg PO DAILY #30 tab 05/08/17 [Last Taken Unknown] Sucralfate [Carafate 1 GM (*)] 1 gm PO ACHS #120 tab 05/08/17 [Last Taken Unknown] oxyCODONE IR [Oxycodone Ir (*)] 5 mg PO Q4HRS PRN #20 tab 05/08/17 [Last Taken Unknown] traZODone [traZODONE 50MG (*)] 50 mg PO HS PRN #10 tab 05/08/17 [Last Taken Unknown] Insurance Attorney Antibiotics: n/a Discharge Medications: Refer to the Discharge Home Medication list for PRN reason. PICC Care - Routine: N/A - Orders Services needed: Home Care, Registered Nurse, Physical Therapy, Occupational Therapy Home Care Face to Face: I certify that this patient was under my care and that I had the required [id number] encounter meeting the encounter requirements on the discharge day. My findings support the fact that the patient is homebound as defined in Home Care Face to Face Continued: [facility] Chapter 7 Medicare Benefits Manual 30.1.1 , The condition of the patient is such that there exists a normal inability to leave home and consequently, leaving home would require a considerable and taxing effort. Isolation Type: None Oxygen: none Diet Recommendation: no restrictions on diet Diet Texture: Regular Texture Diet Weigh Patient: weekly Swanson: Not applicable Activity/Weight Bearing Restrictions: R tib/fib fracture, weakness- per PT/OT recommendations Additional: hx alcohol use, sober since in hospital. S/P GI bleed and L flank/ abd hematoma, s/p transfusion, off anti coagulants for DVT bc too high a bleeding risk after these episodes - Labs/Radiology CBC w/diff Date: 05/14/17 CMP Date: 05/14/17 - Follow Up Care Current Providers and Referrals: Makenzie Briggs MD [Primary Care Provider] - 3-5 days
[2017-05-08] MEDS ORDERED: MAGNESIUM SULF 1 GM/DEXTROSE 100 ML IV ONE (10:59)
[2017-05-08 11:37] VITALS: BP 118/74; RESP 16; TEMP 98.3; O2SAT 94
--- NOTE | 2017-05-08 15:31 | ASDISCHSUM ---
Discharge Information Plan Status:Home with Home Health Medically Cleared to Leave:05/07/2017 Discharge Date:05/08/2017 03:00 PM CM D/C Disposition: ADT D/C Disposition:[id number] Projected Discharge Date:05/08/2017 11:00 AM Transportation at D/C: Discharge Delay Reason: Follow-Up Date:05/08/2017 11:00 AM Discharge Slot: Final Diagnosis: Placement Information Referral Type:*Home Health Care Services Referral ID:[id number] Provider Name:[facility] Address 1:[address] [address] Address 2: City:[place] Selection Factors: State:[place] Patient Contact Information Contact Name:KARLEECRYSTAL Relationship:Friend Address: Work Phone: City: [facility] Phone: [facility] Code: Email: Financial Information Financial Class: Primary Plan Desc:[place] Primary Plan Number:[id number] Secondary Plan Desc: Secondary Plan Number: Assessment Information [facility] Initial CM Assessment Living Arrangements What is your living Answers: Alone arrangement? Who do you live with? Type Of Residence What kind of residence do Answers: House you live in? Discharge Plan Comments Coordination Status Comments Notes: Patient is a 61yo single female who was admitted for black stools and possible upper GI bleed. Patient has a hx of ETOH abuse, degenerative disc disease, hypothothyroidism, and depression. No therapies have been ordered. D/C needs TBD. CM will follow. Date Signed: 04/26/2017 03:32 PM Electronically Signed By:Ruthie Dill LCSW [facility] CM Progress Note CM Note CM Note Notes: Patient's income and assets make her ineligible for Medicaid penitentiary care. [facility] sent an email stating they will no longer work with the patient due to compliance and safety concerns. Patient has had [facility] services and they have her as an open case. They are requesting we notify them when she is ready for d/c. ([phone]). D/C needs are still TBD. A copy of the [facility] email and the info. from [facility] is on the casework supervisor desk to refer to over the weekend. CM will follow. Date Signed: 04/27/2017 07:14 PM Electronically Signed By:Ruthie Dill LCSW [facility] Progress Note CM Note CM Note Notes: D/C plan for patient may change to inpatient rehab since she is capable of PT 3 times a day. Several referrals have been made to home health agencies, however, we have not gotten any response most likely due to the holidays. Patient will not be ready until Sunday per Dr. Barakat. D/C needs changing. CM will follow. Date Signed: 04/30/2017 12:01 PM Electronically Signed By:Ruthie Dill LCSW [facility] Progress Note CM Note CM Note Notes: Received call from Shweta at inpt rehab, they decline pt. CM spoke w/pt she refuses going to SNF, advised pt we could set up homecare but would be another homecare agency as [facility] refuses to take her back. Per Renay OQUENDO at [facility] [phone]. States pt can't take care of herself, pt peeing and pooping all over, impaired judgement, drinking and not safe enviornment. JERE states pt was told several times that they could not take care of her anymore d/t non compliance and safety issues. CM discussed with pt the need to choose another hc agency and pt seemed to be surpised that [facility] would not take her back. Pt also stated that she fired her non skilled homecare agency ([facility]). CM advised pt that she should find another nonskillled agency and CM would help with Skilled hc. Of note, pt seemed not to get the concept of the difference between skilled and non skilled homecare and what the CM could and could not do. [facility] and [facility] have accepted. Pt is complex, and likely will need SW, dc plan suboptimal if pt can't take care of self but is decisional and per [facility] SW scored high on slums. DC Plan: TBD Date Signed: 05/02/2017 05:27 PM Electronically Signed By:Minna Delgado RN [facility] CM Progress Note CM Note CM Note Notes: Valentina from [facility] came to meet w/ Pt. today to assess for Medicaid LTC placement. Pt. refuses to stay 30 days at SNF per Valentina. Mariar met w/ Pt. today in room to discuss her d/c plan options. Pt. would like [facility] to re-assess her for consideration for admission. Pt. feels she needs to be stronger with more functionality before going home. [facility] [place] [facility] D[facility] today. [facility] is set up as current plan. Pt. had [facility] unskilled caregivers as well, but tearfully spoke of her frustration with the quality of their work. Please read colleague's note from 05/02/17 about details regarding [facility]'s description of Pt's ETOH problem and the condition of the home. Per [facility], APS declined to take case stating Pt. is decisional. SW to follow w/ Pt. Date Signed: 05/03/2017 05:08 PM Electronically Signed By:Marjorie Brothers LCSW [facility] CM Progress Note CM Note CM Note Notes: Pt. working with MD to determine her course of care regarding DVT and hematoma intervention. Angely met w/ Pt. again today. Pt. upset to hear that [facility] would not take her again for home health care needs. Angely explained that there was apparently an issue with her home cleanliness and her drinking. Pt. tearful. Angely let Pt. know [facility] would take her case. Pt. OK with plan. Angely provided Pt. with new unskilled caregivers at her request. Pt. does not want to continue to use [facility]. Provided info on [facility], [facility], [facility], and [facility]. Also gave information regarding [employer] by [employer]. Pt. grateful. Pt. struggles to keep track of who is skilled provider and who is unskilled provider. Shweta Dodd called Pt. this am to let her know why [facility]patient [facility] declined her admission. At Shweta's suggestion, Angely asked MD via text to write order for OT evaluation. SW to follow for d/c POC to [facility]. Confirmed Pt's address. Date Signed: 05/04/2017 06:09 PM Electronically Signed By:Marjorie Brothers LCSW [facility] Progress Note CM Note CM Note Notes: Today SWer consulted with ball holder and MD about Pt. Both believe that Pt. is not safe to go home. Pt. still with lots of confusion. Can't remember what she has been told about her medical problems. Deconditioned. ball holder states Pt. may be more amenable to LTC stay now after some of their discussions. MD would like to keep Pt. until LTC placement can be made. Pt. needs another sit down discussion about LTC stay. If Pt. amenable, please call Valentina from [facility] to reinitiate Medicaid LTC stay process - confirm Jenny application is also pending. Valentina from [facility] was turned away by Pt. on 05/03/17. If Pt. not interested in LTC, will need to consider calling Ethics for decisionality review. CM to follow for d/c POC. Date Signed: 05/05/2017 04:52 PM Electronically Signed By:Marjorie Brothers LCSW [facility] Progress Note CM Note CM Note Notes: Attempted to meet w/pt today but she was sound asleep, unable to have conversation. Will need to discuss dc plan with her in AM so we can move forward w/[facility] if pt agrees to SNF. However, CM notes from February say that she would not qualify for [facility]. CM will need to clarify w/[employer] tomorrow as well, email sent to Tatiana w/[employer]. Date Signed: 05/06/2017 03:25 PM Electronically Signed By:Maris Martinez RN [facility] Progress Note CM Note CM Note Notes: Spoke with patient who has chosen [facility] and they have accepted her as a patient. D/C is planned for the morning. Patient does not want to private pay for rehab program and her income and assets make her ineligible for Medicaid LTC. Patient was also given resources for a new [employer] to handle her laundry, shopping, meals, etc. She will set this up herself since they have to discuss fees and hours and agree upon what works for the patient. Spoke with Viola to let her know patient will be d/cing in the morning if all her labs are normal. CM will follow. Date Signed: 05/07/2017 05:11 PM Electronically Signed By:Ruthie Dill LCSW Case Management Discharge Plan Note Case Management Discharge Discharge Order Complete? Answers: Yes Patient to Obtain Answers: Other Notes: [facility]ling in hospital Medications Transportation Arranged Answers: Taxi - Voucher Faxed Final Orders Answers: Yes Notes: [facility]/Facility Transfer Answers: Yes Notes: [facility] Report Printed & Faxed to Receiving Agency Discharge Comments Notes: Assisted patient with prescriptions through [employer] to be billed to Medicaid so she doesn't have to make any trips today. Spoke with Viola with [facility] and faxed the transfer of care summary to her. They have assigned HEMANTH Liz who will call her today to set up their first meeting. Patient has resources to call for personal care which she plans to do when she is home. Spoke with patient to go over final details of D/C plan. She is ready to go home. Prepared a taxi voucher for her as she has too many belongings to manage on the bus. No further d/c needs at this time. Date Signed: 05/08/2017 01:59 PM Electronically Signed By:Ruthie Dill LCSW [facility]
--- NOTE | 2017-05-18 01:14 | GDS ---
[f rep st] DISCHARGE SUMMARY SERVICE[facility] CONSULTATIONS: Gastroenterology and General Surgery. PROCEDURES: Upper endoscopy 04/27/[address] Jacques (6 mm nonbleeding Lisa-Murphy tear, cratered gastric ulcer deformity in the pylorus, normal duodenum). PICC line placement on 04/28/2017. Abdom inal x-ray, pelvic renal ultrasound, abdominal CT, lower extremity venous Doppler. HISTORY AND PHYSICAL: Please see previously dictated note by Dr. Avila. ADMISSION DIAGNOSES: Melena/upper gastrointestinal bleed, alcohol abuse, coagulopathy, paroxysmal at rial fibrillation, right lower extremity deep vein thrombosis on chronic anticoagulation, hypothyroid ism, depression. DISCHARGE DIAGNOSES: Gastrointestinal bleed status post endoscopy with Dr. Jacques as above, nonocclus yobani right leg deep vein thrombosis, anemia from acute blood loss, abdominal hematoma, alcohol abuse, paroxysmal atrial fibrillation (episode of rapid ventricular response now rate controlled), urinary t ract infection, hypothyroidism, depression. HOSPITAL COURSE: The patient came into the emergency department because of concerns about black/gree n tarry stools. She had a positive Hemoccult blood with her primary care provider and was referred t o the emergency department for evaluation. She had a recent ORIF of her tib-fib with a postoperative nonocclusive DVT. She was placed on Xarelto. In the emergency department, she was found to have a hemoglobin of 9.8, and she was admitted to the hospital for further evaluation and treatment. Gastro enterology was asked to evaluate her and she had an upper endoscopy, findings as above. She was plac ed on telemetry because of her history of intermittent atrial fibrillation. She was given IV fluids and started on proton pump inhibitors per GI's recommendations. Serial hemoglobins were done and wer e found to be stable. A decision was made to place a PICC line and start heparin for treatment of he r right lower leg DVT. Discussions were had with her regarding long-term anticoagulation. She did n ot want to re-start Xarelto so instead was started on Coumadin. Heparin was continued as Coumadin le vels were being managed by pharmacy. Unfortunately, she developed a lower abdominal hematoma. All a nticoagulation was stopped at that time. General Surgery was asked to consult on her care and she [place] imaging to ensure that there was no internal bleeding and none was seen. After a discussion with h er and several specialists, decision was made to not continue chronic anticoagulation as her risk of bleeding was significant with her 2 adverse effects to Coumadin and Xarelto and her known chronic alc oholism. She was placed on CIWA protocol throughout her stay and did not show any signs of withdrawa l. She was intermittently interested in counseling, but preferred to follow this up with her primary care provider after discharge. Social Work and Case Management did see her several times and discus sed options. She intermittently worked with Physical Therapy and Occupational Therapy. It was recom mended that she go to SNF or a rehab facility. However, Case Management determined that she would be self-pay for this type of care and patient declined. She is going to be discharged home with home [facility] care and close followup with her primary care provider. All medication refills were done for er prior to discharge and she was sent home with a supply of all of her medications. She was noted t o have a urinary tract infection on culture. That was initially treated with Rocephin. It was parekh ed to Macrobid after sensitivities were received. She received 2 units of packed red blood cells aft er the abdominal hematoma blood loss. At time of discharge, her hemoglobin was 9.9, hematocrit of 29 .2, and platelets of 230. This level should be checked with her primary care provider. On day of , her INR had come down to 1.13. She was noted to have elevated alkaline phosphatase and brannon mmended a GI followup after discharge for this. Her bilirubin was also elevated intermittently. The y can also follow up her upper GI findings as above. She will be continued on aspirin only as an ant icoagulant for her nonocclusive DVT and intermittent atrial fibrillation. She only had the 1 episode of rapid ventricular response, but was otherwise rate controlled with diltiazem, which she has taken for a long period of time. Suggest followup with primary care provider and perhaps Cardiology as an outpatient given her anticoagulant risks as discussed above. DISCHARGE MEDICATIONS: Diltiazem 240 once a day, ferrous sulfate 140 once a day, lorazepam 0.5 mg as needed, Protonix 40 mg twice a day, sertraline 100 mg (increased from 75 mg), sucralfate 1 g 4 times a day, trazodone as needed, Synthroid 112 mcg a day, Neurontin 200 mg at night, Dilaudid 2 mg as nee ded, aspirin 81 mg nightly, and Robaxin 500 mg nightly. She has been instructed to not take anything [id number] other than Tylenol. Specifically, she should not take any ibuprofen, Advil, Aleve, naproxen. DISCHARGE INSTRUCTIONS: She has been asked to follow up with her primary care provider, javier Logn the next few days. Home health care has been arranged with RN and PT services. If at any time she has worsening leg pain, palpitations, episodes of easy bleeding, chest pain, or other concerns, s he should return immediately to the emergency department for evaluation. Otherwise, she should follo w up as above. /[id number]/MODL
== END 2017-05-08 15:00 | disposition home health service (06) | DRG 378 ==
LOC: F3E 22:48 → OBSVTOIN 04-27 12:36
PROVIDERS: ADMIT Internal Medicine Pulmonary Disease; ATTEND Family Medicine
DX: K25.4 Chronic or unspecified gastric ulcer with hemorrhage (principal); K22.6 Gastro-esophageal laceration-hemorrhage syndrome; D62 Acute posthemorrhagic anemia; D68.32 Hemorrhagic disorder due to extrinsic circulating anticoagulants; T45.515A Adverse effect of anticoagulants, initial encounter; N39.0 Urinary tract infection, site not specified; B96.20 Unspecified Escherichia coli [E. coli] as the cause of diseases classified elsewhere; M79.81 Nontraumatic hematoma of soft tissue; I82.411 Acute embolism and thrombosis of right femoral vein; I48.91 Unspecified atrial fibrillation; F10.20 Alcohol dependence, uncomplicated; E03.9 Hypothyroidism, unspecified; F32.9 Major depressive disorder, single episode, unspecified; G89.29 Other chronic pain; M54.9 Dorsalgia, unspecified; D52.0 Dietary folate deficiency anemia; D69.6 Thrombocytopenia, unspecified; Z98.890 Other specified postprocedural states; Z79.01 Long term (current) use of anticoagulants
CPT/HCPCS: 85520-90; 97116-GP; 97161-GP; 97166-GO; 97530-GP; 97535-GO; C1751; G0378; J0696; J1170; J1644; J2060; J2405; J2550; J2720; J3010; J3411; J3475; P9016; P9017; Q9967

== ENCOUNTER 2017-05-13 07:47 | Inpatient (IN) | payer MEDICAID ==
--- NOTE | 2017-05-13 07:46 | EDPHY ---
H & P Source: Patient Exam Limitations: No limitations Constitutional: Initial Vital Signs Temperature (C) 37 C 05/13/17 08:07 Heart Rate 154 H 05/13/17 08:07 Respiratory Rate 18 05/13/17 08:07 Blood Pressure 135/105 H 05/13/17 08:07 O2 Sat (%) 96 05/13/17 08:07 O2 Delivery Mode Room Air Allergies/Adverse Reactions: Sulfa (Sulfonamide Antibiotics) Allergy (Mild, Verified 04/25/17 16:46) Rash Home Medications: Medication Instructions Recorded Ascorbic Acid [Vitamin C 500 mg 1,000 mg PO DAILY 03/27/17 (*)] Calcium Carbonate [Oyster Shell 500 mg PO BID 03/27/17 Calcium 500 mg (*)] Acetaminophen [Tylenol 325mg (*)] 650 mg PO Q4HRS PRN tab 05/08/17 Diltiazem Xr [Dilacor Xr] 240 mg PO DAILY #30 cap 05/08/17 Ferrous Sulfate [Slow Fe 140 MG 140 mg PO DAILY #30 tab.er 05/08/17 (*)] Gabapentin [Neurontin 100 MG (*)] 100 mg PO HS #30 cap 05/08/17 LORazepam [Ativan (*)] 0.5 mg PO Q4HRS PRN #10 tab 05/08/17 Levothyroxine [Synthroid 112 mcg 112 mcg PO DAILY #30 tab 05/08/17 (*)] Pantoprazole Sodium [Protonix 40mg 40 mg PO BID #60 tab 05/08/17 (*)] Sertraline HCl [Zoloft 100mg (*)] 100 mg PO DAILY #30 tab 05/08/17 Sucralfate [Carafate 1 GM (*)] 1 gm PO ACHS #120 tab 05/08/17 oxyCODONE IR [Oxycodone Ir (*)] 5 mg PO Q4HRS PRN #20 tab 05/08/17 traZODone [traZODONE 50MG (*)] 50 mg PO HS PRN #10 tab 05/08/17 Aspirin [Aspirin 81mg (*)] 81 mg PO HS 05/13/17 Herbals/Supplements -Info Only 1 ea PO DAILY 05/13/17 Methocarbamol [Robaxin 500 mg (*)] 500 mg PO HS 05/13/17 Medical Decision Making - Diagnostics Imaging Results: Imaging Impressions Tibia/Fibula X-Ray 05/13/17 07:51 Impression: 1. No acute fracture or malalignment. 2. Subacute distal tibia and fibular fractures are healing in anatomic alignment with intact hardware. ED Course/Re-evaluation: CHIEF COMPLAINT: Lower extremity pain HISTORY OF PRESENT ILLNESS: The patient is a 61-year-old female with history of alcoholism and sustained right trimalleolar fracture on 03/27/2017 after an a mechanical fall, s/p ORIF by Dr. Donaldo Crabtree. She was seen in the ED 2016 and diagnosed with a right femoral vein DVT and was placed on Xarelto. She presents today with complains of ongoing right leg pain. She is wearing a boot and denies increased swelling, paraesthesias, skin color changes, no chest pain or shortness of breath. She is currently taking Oxycodone for pain but complains that her pain has worsened. EMS states the patient was able to ambulate without pain. The patient admits to alcohol use yesterday. The patient lives at home and has home care helping her. She was offered a detention when she left the hospital but she declined. REVIEW OF SYSTEMS: A 10 point review of systems was performed and is negative with the exception of the elements mentioned in the history of present illness. PHYSICAL EXAM: HR, BP, O2 Sat, RR. Temp noted General Appearance: Alert, well hydrated, appropriate, and non-toxic appearing. Head: Atraumatic without scalp tenderness or obvious injury Eyes: Pupils equal, round, reactive to light and accommodation, EOMI, no trauma , no injection. Respiratory: No retractions, no distress, no wheezes, and no accessory muscle use. Lungs are clear to auscultation bilaterally. Cardiovascular: Regular rate and rhythm, no murmurs, rubs, or gallops. Bilateral carotid, radial, dorsalis pedis, and posterior tibial pulses intact. Good capillary refill all extremities. Gastrointestinal: Abdomen is soft, nontender, non-distended, no masses, no rebound, no guarding, no peritoneal signs. Musculoskeletal: There is no evidence of infection. The surgical wounds are clean, dry and intact. No evidence of worsening swelling or compartment syndrome. Neurological: Alert, appropriate, and interactive. The patient has normal DTRs and non-focal cranial nerves, motor, sensory, and cerebellar exam. Skin: No rashes, good turgor, no nodules on palpation. Past medical history: Alcoholism, degenerative disc disease, osteoarthritis, scoliosis, heart murmur, Atrial fibrillation, Clostridium difficile -Dec 2015, History of alcohol withdrawal, pancreatitis. Past surgical history: Tonsillectomy, ORIF Family history: Noncontributory. Social history: Lives at home. Unemployed. DIAGNOSTICS/PROCEDURES/CRITICAL CARE TIME: The patient's right lower extremity x-ray shows additional callus formation otherwise no change from previous x-ray. DIFFERENTIAL DIAGNOSIS: The differential diagnosis for the patient's narrow complex tachycardia included but was not limited to various causes of sinus tachycardia such as dehydration and medicines, SVT, atrial flutter, atrial fibrillation, pulmonary causes. MEDICAL DECISION MAKING: The patient is a chronic alcoholic. She has a history of sustained right trimalleolar fracture on 03/27/2017 after an a mechanical fall, s/p ORIF by Dr. Donaldo Crabtree. She developed right femoral DVT in March and was started on Xarelto. She presents today with worsening right lower extremity pain. Her last alcoholic drink was yesterday. The patient is tachycardic and hypertensive which is likely both alcohol withdrawal and pain related. I will check a d-dimer to rule out DVT or PE. There is no evidence of infection of her right lower extremity. The surgical wounds are clean, dry and intact. There is no evidence of worsening swelling or compartment syndrome. Plan for lab work including BMP, BNP, CBC, Lipase, LFT, and Troponin. IV was established, the patient received IV fluids, Ativan, Toradol, and Dilaudid. Her EKG shows atrial fibrillation. She is not rate controlled. I consulted Dr. Perkins, he will consult on the patient. She was started on a Diltiazem drip and bolus and her rate has improved to 115 bpm. Her blood pressure remains elevated at 135/104. The patient will be admitted to the hospitalist Dr. Jauregui with uncontrolled atrial fibrillation. A PICC line was placed. Patient will remain on the Diltiazem drip to help with rate control. Critical care time spent by me, Dr. Tom, exclusively with this patient was 30 minutes, exclusive of PA time, and exclusive of procedures. The patient has uncontrolled atrial fibrillation and the patient Diltiazem drip to help control her rate and to prevent worsening of the patients condition. The patient was admitted to the hospitalist for further work up. - Data Points Laboratory Results: Laboratory Results 05/13/17 09:30 05/13/17 05/13/17 05/13/17 09:30 09:30 09:30 WBC 6.26 10^3/uL 10^3/uL (3.80-9.50) RBC 3.52 10^6/uL L 10^6/uL (4.18-5.33) Hgb 11.4 g/dL L g/dL (12.6-16.3) Hct 33.2 % L % (38.0-47.0) MCV 94.3 fL fL (81.5-99.8) MCH 32.4 pg pg (27.9-34.1) MCHC 34.3 g/dL g/dL (32.4-36.7) RDW 15.4 % H % (11.5-15.2) Plt Count 246 10^3/uL 10^3/uL (150-400) MPV 9.7 fL fL (8.7-11.7) Neut % (Auto) 80.5 % H % (39.3-74.2) Lymph % (Auto) 11.2 % L % (15.0-45.0) [place] % (Auto) 6.9 % % (4.5-13.0) Eos % (Auto) 0.3 % L % (0.6-7.6) Baso % (Auto) 0.6 % % (0.3-1.7) Nucleat RBC Rel Count 0.0 % % (0.0-0.2) Absolute Neuts (auto) 5.04 10^3/uL 10^3/uL (1.70-6.50) Absolute Lymphs (auto) 0.70 10^3/uL L 10^3/uL (1.00-3.00) Absolute Monos (auto) 0.43 10^3/uL 10^3/uL (0.30-0.80) Absolute Eos (auto) 0.02 10^3/uL L 10^3/uL (0.03-0.40) Absolute Basos (auto) 0.04 10^3/uL 10^3/uL (0.02-0.10) Absolute Nucleated RBC 0.00 10^3/uL 10^3/uL (0-0.01) Immature Gran % 0.5 % % (0.0-1.1) Immature Gran # 0.03 10^3/uL 10^3/uL (0.00-0.10) D-Dimer Pending Sodium Pending Potassium Pending Chloride Pending Carbon Dioxide Pending Anion Gap Pending BUN Pending Creatinine Pending Estimated GFR Pending Glucose Pending Calcium Pending Total Bilirubin Pending Conjugated Bilirubin Pending Unconjugated Bilirubin Pending AST Pending ALT Pending Alkaline Phosphatase Pending Troponin I Pending NT-Pro-B Natriuret Pep Pending Total Protein Pending Albumin Pending Lipase Pending Medications Given: Discontinued Medications Diltiazem HCl (Cardizem 25 Mg/5 Ml Vial) 20 mg IVP EDNOW ONE Stop: 05/13/17 08:16 Last Admin: 05/13/17 08:30 Dose: 20 mg Hydromorphone HCl (Dilaudid) 1 mg IVP EDNOW ONE Stop: 05/13/17 07:56 Last Admin: 05/13/17 08:29 Dose: 1 mg Sodium Chloride (Ns) 1,000 mls @ 0 mls/hr IV EDNOW ONE; Wide Open PRN Reason: Protocol Stop: 05/13/17 07:56 Last Admin: 05/13/17 08:15 Dose: 1,000 mls Diltiazem HCl 125 mg/ Dextrose 125 mls @ 0 mls/hr IV EDNOW ONE; As Directed PRN Reason: Protocol Stop: 05/13/17 08:16 Last Admin: 05/13/17 08:45 Dose: 125 mls Ketorolac Tromethamine (Toradol) 30 mg IVP EDNOW ONE Stop: 05/13/17 07:56 Last Admin: 05/13/17 08:29 Dose: 30 mg Lorazepam (Ativan Injection) 1 mg IVP EDNOW ONE Stop: 05/13/17 07:58 Last Admin: 05/13/17 08:30 Dose: 1 mg Ondansetron HCl (Zofran) 4 mg IVP EDNOW ONE Stop: 05/13/17 07:56 Last Admin: 05/13/17 08:29 Dose: 4 mg Departure - Departure Disposition: [facility] Clinical Impression: Atrial fibrillation Qualifiers: Atrial fibrillation type: unspecified Qualified Code(s): I48.91 - Unspecified atrial fibrillation Alcohol intoxication Qualifiers: Complication of substance-induced condition: uncomplicated Qualified Code(s): F10.920 - Alcohol use, unspecified with intoxication, uncomplicated Leg pain Qualifiers: Laterality: right Qualified Code(s): M79.604 - Pain in right leg Condition: Fair Report Scribed for: Otis Tom Report Scribed by: Rohini Swain Date of Report: 05/13/17 Time of Report: 09:50
[2017-05-13] MEDS ORDERED: NS 1,000 ML IV ONE (07:55)
[2017-05-13] MEDS ORDERED: HYDROmorphONE/DILAUDID 1 MG/ML INJ IVP ONE (07:55)
[2017-05-13] MEDS ORDERED: ONDANSETRON 4 MG/2 ML VIAL IVP ONE (07:55)
[2017-05-13] MEDS ORDERED: KETOROLAC 30 MG/1 ML SDV IVP ONE (07:55)
[2017-05-13] MEDS ORDERED: LORazepam 2 MG/ML INJ IVP ONE (07:57)
[2017-05-13] MEDS ORDERED: DILTIAZEM 125 MG in D5W 125 ML IV ONE (08:15)
[2017-05-13] MEDS ORDERED: DILTIAZEM 25 MG/5 ML VIAL IVP ONE (08:15)
--- NOTE | 2017-05-13 08:15 | CPEKG ---
Heart Rate: 144 RR Interval: 417 QRSD Interval: 80 QT Interval: 304 QTC Interval: 471 QRS [place]: -29 T Wave [place]: 24 EKG Severity - ABNORMAL ECG - EKG Impression: ATRIAL FIBRILLATION EKG Impression: BORDERLINE LEFT AXIS DEVIATION EKG Impression: LOW VOLTAGE IN FRONTAL LEADS Electronically Signed By: Otis Tom 13-May-2017 15:07:57
[2017-05-13] MEDS ORDERED: ALTEPLASE 2 MG VIAL IVP PRN (09:29)
[2017-05-13 09:41] LABS: PLATELET COUNT 246 10^3/uL (150-400)
--- NOTE | 2017-05-13 12:06 | ASMTCMCOM ---
CM Note CM Note Notes: Patient being admitted for uncontrolled A-fb and uncontrolled right lower leg pain due to recent tib/fib fracture (had ORIF with Dr Crabtree 03/27/17). Patient had 29 ED visits in 2017, and was admitted twice in February and once in March. Patient most recently d/c'd from [facility] on 05/08/17 to home with [facility] ([phone]) and [facility] ([phone]) homemaking services. Patient states "it went very badly" with [facility] and she ended up firing them. This CM put in a call to [facility]; have not heard back yet. Patient was with [facility] a couple of months ago but [facility] discharged pt from their services due to patient's noncompliance. Patient has been recommended to d/c to SNF in the past but has always declined and wanted to go home. Spoke with patient and she is now open to the idea of SNF placement, says [facility] but likes [facility] (she used to visit a friend there weekly). If pt continues to be open to SNF placement, anticipate DC to SNF (pt 1st choice [facility]); otherwise anticipate pt to dc home with [facility] and additional non-skilled home care services (pt states she has not looked into other agencies yet). Patient states she has a best friend who lives locally but that the friend has "refused to help me." Patient also has a sister who lives in [place] but she states they don't have the best relationship. Exact DC needs unknown, CM to follow. Date Signed: 05/13/2017 12:05 PM Electronically Signed By:Marjorie Harrison RN
[2017-05-13] MEDS ORDERED: ONDANSETRON 4 MG/2 ML VIAL IVP PRN (13:21)
[2017-05-13] MEDS ORDERED: ACETAMINOPHEN 325 MG TAB PO PRN (13:21)
[2017-05-13] MEDS ORDERED: ONDANSETRON DISINTEGRATING 4 MG TAB PO PRN (13:21)
[2017-05-13] MEDS ORDERED: ALBUTEROL 3 ML DEYVIAL IH PRN (13:21)
[2017-05-13] MEDS ORDERED: MAGNESIUM HYDROXIDE 30 ML UDCUP PO PRN (13:27)
[2017-05-13] MEDS ORDERED: POLYETHYLENE GLYCOL 3350 17 GM PKT PO PRN (13:27)
[2017-05-13] MEDS ORDERED: LORazepam 1 MG TAB PO PRN (13:27)
[2017-05-13] MEDS ORDERED: BISACODYL 10 MG SUPP PR PRN (13:27)
[2017-05-13] MEDS ORDERED: LACTULOSE 20 GM/30 ML UDCUP PO PRN (13:27)
[2017-05-13] MEDS ORDERED: LORazepam 1 MG TAB PO ONE (13:27)
[2017-05-13] MEDS ORDERED: traZODone 50 MG TAB PO PRN (13:30)
[2017-05-13] MEDS ORDERED: DILTIAZEM 125 MG in D5W 125 ML IV SCH (13:30)
[2017-05-13] MEDS: NS W/ 20 KCl/L 1,000 ML IV SCH ×2 (13:58→23:30)
[2017-05-13] MEDS: HYDROCODONE/APAP 5/325 TAB PO PRN (14:25)
--- NOTE | 2017-05-13 18:32 | GHP ---
[f rep st] HISTORY AND PHYSICAL DATE OF ADMISSION: 05/13/2017 CHIEF COMPLAINT: Rapid heart rate and pain in the right lower extremity. HISTORY OF PRESENT ILLNESS: This is a 61-year-old female with a known prior history of recurrent atr ial fibrillation, recent DVT in her right lower extremity requiring full dose anticoagulation, histor y of alcohol abuse and admitted recent use, pancreatitis and coagulopathy, hypothyroidism, chronic pa in, and depression. She presents today with a complaint of right lower extremity pain and a feeling of shortness of breath with a rapid heartbeat. She was seen in the emergency department and noted to be in atrial fibrillation, with a rapid ventricular response. Placed on a diltiazem drip and admitt ed. She denied having chest pain, shortness of breath, orthopnea, PND or hematemesis. She reports s he is having pain in her right lower extremity of an uncharacterized nature. There has been no recen t trauma or throbbing. She is status post an ORIF of the right tibia and fibula on 03/26/2017 second cesario to a fall. PAST MEDICAL HISTORY: 1. Known paroxysmal atrial fibrillation and previously on anticoagulant therapy but stopped because of a GI bleed in 03/2017. 2. GI bleeding secondary to gastric ulceration and a Lisa-Murphy tear noted in 03/2017. 3. Prior anticoagulant therapy for the DVT of her right lower extremity but now off anticoagulation. 4. ETOH abuse which she has reported for the last 20 years and she admits to drinking a pint of vodk a a week. She admits to drinking 1 and 2 days prior to admission but denies that she has symptoms of withdrawal and denies a history of seizure disorder if she stops alcohol. 5. Gastrointestinal bleed noted in 03/2017 by EGD noting gastric ulceration and a Lisa-Murphy tear . 6. Hypothyroidism for which she is on replacement therapy. 7. Pancreatitis. 8. Coagulopathy felt secondary to her long-standing ETOH abuse. 9. History of C difficile in December 2015. 10. Depression. PAST SURGICAL HISTORY: 1. An ORIF of the tib-fib on 03/26/2017. 2. Tonsillectomy and appendectomy, remotely. REVIEW OF SYSTEMS: A 10-point review of systems is negative except as noted above. Specifically, tevin west denies having chest pain, hemoptysis, orthopnea, PND or recent trauma to the right lower extremity. There has also been no increased swelling. ALLERGIES: Sulfa, causing a mild rash. FAMILY HISTORY: Her father at age 42 of an accident. Her mother was in the 50s due to esophageal cancer. SOCIAL HISTORY: Tobacco: The patient has never smoked. Alcohol: She has heavy use and has used fo r the last several years with 1 self admitting to 1 pint a week and sometimes more. Drug use: None. The patient lives alone. COR STATUS: Full COR. Her sister will act as her power of ip technology transactions attorney. MEDICATIONS: Her home medications include Tylenol, vitamin C, aspirin, calcium, diltiazem XR 240 mg daily, Ativan 0.5 mg p.o. q.4 hours p.r.n., Robaxin 500 mg h.s., oxycodone IR 5 mg q.4 hours p.r.n., Protonix 40 mg twice daily, ferrous sulfate, gabapentin, Synthroid, Zoloft, sucralfate, and trazodone . These medications are noted in the EMR and will be reconciled. PHYSICAL EXAMINATION: GENERAL: This is an alert, calm female who I am seeing on the floor. She ini nelsonlly had an elevated heart rate of approximately 140 in atrial fibrillation but now is approximatel y 110-100 on a diltiazem drip. Blood pressure is normal. She is afebrile. HEENT: Normal. JVP is not elevated. Tongue and buccal mucosa appear normal without lesions or signs of bleeding. There wa s a slight malar flush with some telangiectasia of the face. CHEST: Chest wall nontender to palpati on. LUNGS: Clear to P and A. HEART: Singular S1, S2. No murmur or gallop. JVP is not elevated. ABDOMEN: Normoactive bowel sounds. No masses, tenderness or organomegaly. EXTREMITIES: Slight sw elling of the right lower extremity without a palpable cord. There are changes of surgery noted. Th e areas appear to be healing well. The area is tender to deep palpation in an indistinct fashion. S kin is warm and dry. Pulses are normal. LABORATORY: WBC 6000, hemoglobin 11. D-dimer is 2.3. Chemistry panel is normal except for a low ma gnesium at 1.2. Her bilirubin is elevated at 2.0. Alkaline phosphatase elevated at 224 and lipase i s elevated at 329. Renal function is normal. Albumin low at 3.0. ASSESSMENT: 1. Acute atrial fibrillation. The patient has known paroxysmal atrial fibrillation and is usually o n diltiazem 240 mg daily for control. Unfortunately, she is also not on anticoagulation therapy darrion use of her prior history of gastrointestinal bleeding. This is a risk that was taken on her last dis charge which was felt to be necessary in light of her recent gastrointestinal bleeding. Currently sh jenna is on a diltiazem drip and, as of this dictation, has now converted to sinus rhythm. She will be c onverted back to p.o. medication. Her blood pressures remained stable. 2. Acute alcohol abuse. She continues to use a pint a day and the risk of possible alcohol withdraw al is always present. She will be placed on a CIWA protocol. 3. Pain management will be done with her usual home medications without increase in her narcotic use . No IV Dilaudid will be ordered or should it be. 4. History of GI bleeding. A rectal exam was performed during my exam and the rectal vault was empt y. Stools will be collected for guaiac. 5. Anticoagulant therapy needs to be considered in this lady as she is clearly showing signs of paro xysmal atrial fibrillation. 6. Question resides as to whether the incident of atrial fibrillation is secondary to a pulmonary em bolus. Her oxygen saturation is normal on room air. The possibility always exists that she could [place] ve a DVT in her right lower extremity given that it is swollen and she is certainly postoperative. I do not know the level of the lady's actual activity. In light of that, an ultrasound of the right l ower extremity will be ordered to rule out a deep vein thrombosis. PLAN: The patient will be admitted for rate control. Troponins will be obtained on a serial basis a nd the first 2 sets of now been normal. Electrolyte abnormalities of magnesium will be corrected. A repeat lipase will be obtained in the morning. The patient will be admitted to observation status. It seems possible we could correct this within 2 4 hours although, if that is not possible, then she should be changed to inpatient status. Her rhyth m does need to be stable but we can return her to her usual dose of diltiazem. The issue of anticoag ulation needs to be addressed again and will follow her stools. TIME: This admission required 50 minutes. Gregorio #: [id number]
[2017-05-13] MEDS: DILTIAZEM 60 MG TAB PO SCH ×2 (18:37→23:30)
[2017-05-13] MEDS: SUCRALFATE 1 GM TAB PO SCH ×2 (18:37→21:57)
--- NOTE | 2017-05-13 18:47 | PDMN ---
Medical Necessity Medical necessity: C/M review: est. > 2 MN LOS for eval and TX of acute - atrial fibrillation with rapid ventricular response, alcohol abuse, requiring PICC line placement, IV Diltiazem infusion, planned 05/13/2017 Doppler US or right lower extremity, ongoing IV fluids, cardiac monitoring, pulse oximetry, CIWA protocol, comorbid history of paroxysmal atrial fibrillation, GI bleeding secondary to gastric ulcer and Lisa-Murphy tear on 03/2017, prior anticoagulation therapy for RLE DVT but now off anticoagulation, alcohol abuse, pancreatitis, coagulopathy secondary to alcohol abuse, C. Difficile in 12/2015, depression per H/P.
[2017-05-13] MEDS ORDERED: MAGNESIUM SULF 2 GM/WATER 50 ML IV ONE (19:30)
[2017-05-13] MEDS ORDERED: GABAPENTIN 100 MG CAP PO SCH (21:00)
[2017-05-13] MEDS: SENNOSIDES/DOCUSATE SODIUM TAB PO SCH (21:57)
[2017-05-14] MEDS: HYDROCODONE/APAP 5/325 TAB PO PRN ×3 (00:01→13:32)
[2017-05-14 04:34] LABS: PLATELET COUNT 209 10^3/uL (150-400)
[2017-05-14] MEDS ORDERED: LEVOTHYROXINE 112 MCG TAB ONE (06:19)
[2017-05-14] MEDS: LEVOTHYROXINE 112 MCG TAB PO SCH (06:20)
[2017-05-14] MEDS: DILTIAZEM 60 MG TAB PO SCH ×4 (06:20→23:51)
[2017-05-14] MEDS: SENNOSIDES/DOCUSATE SODIUM TAB PO SCH ×2 (08:00→20:10)
[2017-05-14] MEDS: MULTIVITAMINS 1 EACH TAB PO SCH (08:00)
[2017-05-14] MEDS: FERROUS SULFATE 140 MG TAB.ER PO SCH (08:00)
[2017-05-14] MEDS: ENOXAPARIN 40 MG/0.4 ML SYR SC SCH (08:00)
[2017-05-14] MEDS: SERTRALINE HCL 100 MG TAB PO SCH (08:00)
[2017-05-14] MEDS: SUCRALFATE 1 GM TAB PO SCH ×4 (08:00→20:10)
--- NOTE | 2017-05-14 08:58 | CPEKG ---
Heart Rate: 88 RR Interval: 682 P-R Interval: 180 QRSD Interval: 62 QT Interval: 392 QTC Interval: 475 P [place]: 0 QRS [place]: 1 T Wave [place]: 24 EKG Severity - BORDERLINE ECG - EKG Impression: SINUS RHYTHM EKG Impression: LOW VOLTAGE THROUGHOUT Electronically Signed By: Jose Perkins 16-May-2017 09:20:48
[2017-05-14] MEDS ORDERED: GABAPENTIN 100 MG CAP PO SCH (14:48)
[2017-05-14] MEDS ORDERED: LORazepam 1 MG TAB PO PRN (14:48)
--- NOTE | 2017-05-14 14:53 | HOSPPROG ---
Hospitalist Progress Note Assessment/Plan: Assessment: 61-year-old female presents with AFib and acute rapid ventricular response in the setting of acute right lower extremity pain Plan: 1. Atrial fibrillation with acute rapid regular response. Most likely secondary to acute pain, patient with historically low threshold for provoking atrial fibrillation, becomes particularly symptomatic with shortness of breath and palpitations -chemically cardioverted with diltiazem drip, continue diltiazem 60 mg q.6 hours then convert to 240 mg daily tomorrow a.m. if rate is optimally controlled -systemic anticoagulation is indicated but it has been discontinued secondary to bleeding complications in the past, continue aspirin 81 mg daily 2. Right lower extremity. Acute on chronic, patient with right lower extremity surgery over the past couple months, reportedly had a follow-up appointment with Dr. Crabtree today but she will be unable to attend secondary to hospitalization for uncontrolled pain -ultrasound demonstrating no DVT, x-ray demonstrating good alignment -patient's pain is currently well managed, continue working with therapy and assess her ambulatory abilities, patient may require retirement facility for safe discharge, she is currently amenable -patient's home dosage of [place] has been insufficient controlling her pain, dose her with as needed Dilaudid plus Tylenol, at bedtime Robaxin -given neuropathic component, increase her gabapentin 300 mg at bedtime 3. Alcoholism. Chronic, patient with recent, mild relapse, she does not believe that she is at risk for alcohol withdrawal, currently demonstrating no symptoms of alcohol withdrawal, continue to monitor Diet. Regular Prophylaxis. High risk, Lovenox 40 Code. Full Disposition. Anticipated discharge uncertain, patient is currently medically unsafe for discharge given her poor ambulatory abilities, requires ongoing work with physical and occupational therapy to reassess whether she requires nursing facility placement. Subjective: Patient reports ongoing pain in right lower extremity prior to presentation, currently well controlled Objective: Vital Signs Temp Pulse Resp BP Pulse Ox 36.7 C 83 18 127/71 H 99 05/14/17 08:22 05/14/17 11:12 05/14/17 11:12 05/14/17 11:12 05/14/17 11:12 Laboratory Results 05/14/17 04:10 05/14/17 04:10 05/13/17 05/14/17 05/15/17 05:59 05:59 05:59 Intake Total 2215 Output Total 400 Balance 1815 - Physical Exam Constitutional: no apparent distress, not in pain, chronically ill appearing, uncomfortable Cardiovascular: regular rate and rhythym, no murmur, rub, or gallop, No edema Respiratory: no respiratory distress, no rales or rhonchi, clear to auscultation Gastrointestinal: normoactive bowel sounds, soft, non-tender abdomen, no palpable masses Neurologic: AAOx3, sensation intact bilaterally, No asterixes (No tremulousness in hand), No facial droop Psychiatric: interacting appropriately, not anxious, not encephalopathic, thought process linear ICD10 Worksheet Patient Problems: Problems Problem Status Onset Abdominal pain Acute Ankle fracture Acute GI bleed Acute Atrial fibrillation Acute Alcohol intoxication Acute Leg pain Acute Alcohol withdrawal Acute Nausea and vomiting in adult Acute Alcohol abuse Acute Nausea & vomiting Acute Vomiting Acute Atrial fibrillation with RVR Acute C. difficile diarrhea Acute 09/23/16 Alcohol withdrawal Acute
--- NOTE | 2017-05-14 15:32 | ASMTCMCOM ---
CM Note CM Note Notes: Patient is not eligible for LTC Medicaid placement with SNF due to her assets. Spoke with patient today who is happy with [facility] and willing to continue with them. They only got one visit in and the patient did not answer the door for the second visit with occupational therapist. Patient thinks she might have confused them with the [facility] [employer] people she fired and that is why she didn't answer the door. We discussed in depth her need for a plan regarding her living circumstances which are overwhelming to her. Patient states she is ready to sell her house and downsize to a home on one level and has considered half-way and/or assisted living. She needs support with this, however, and her best friend and she have had a falling out. Patient has a sister but they do not get along and she is not available to help. We reviewed a short term plan (home health to get her stronger) and a buttermaker continuous churn plan (sell her house and move to assisted living facility or a senior home like [facility]). Patient is ready to sell her house and wants to get a more supportive living environment. Patient is aware she had 29 visits to our ER in 2017 and knows she needs to make a change.[facility] will continue to follow at d/c. Currently resarching a different mcc service since patient fired [facility]. Patient also expressed interest in having a counselor she can talk to regularly for her depression, etoh use, and other issues. She was given [facility] to pursue getting an appointment. She has to make the appointment herself with [facility] as a result of their intake process. CM will follow. Date Signed: 05/14/2017 03:31 PM Electronically Signed By:Ruthie Dill LCSW
[2017-05-14] MEDS: PANTOPRAZOLE SODIUM 40 MG TAB PO SCH (20:10)
[2017-05-14] MEDS: HYDROmorphONE/DILAUDID 2 MG TAB PO PRN (20:10)
[2017-05-14] MEDS ORDERED: ASPIRIN 81 MG CHEWABLE TAB PO SCH (21:00)
[2017-05-14] MEDS ORDERED: METHOCARBAMOL 500 MG TAB PO SCH (21:00)
[2017-05-15] MEDS: DILTIAZEM 60 MG TAB PO SCH (06:18)
[2017-05-15] MEDS: LEVOTHYROXINE 112 MCG TAB PO SCH (06:18)
[2017-05-15 06:36] LABS: PLATELET COUNT 177 10^3/uL (150-400)
[2017-05-15 07:38] VITALS: BP 106/61; PULSE 84; RESP 18; TEMP 98.1; O2SAT 92
[2017-05-15] MEDS: SUCRALFATE 1 GM TAB PO SCH ×2 (07:52→11:12)
[2017-05-15] MEDS: MULTIVITAMINS 1 EACH TAB PO SCH (07:52)
[2017-05-15] MEDS: FERROUS SULFATE 140 MG TAB.ER PO SCH (07:52)
[2017-05-15] MEDS: ENOXAPARIN 40 MG/0.4 ML SYR SC SCH (07:52)
[2017-05-15] MEDS: SERTRALINE HCL 100 MG TAB PO SCH (07:52)
[2017-05-15] MEDS: PANTOPRAZOLE SODIUM 40 MG TAB PO SCH (07:52)
[2017-05-15] MEDS: HYDROmorphONE/DILAUDID 2 MG TAB PO PRN (07:54)
[2017-05-15] MEDS: SENNOSIDES/DOCUSATE SODIUM TAB PO SCH (07:55)
[2017-05-15] MEDS ORDERED: GABAPENTIN 100 MG CAP PO SCH (10:37)
[2017-05-15] MEDS ORDERED: DILTIAZEM XR 240 MG CAP PO SCH (10:45)
--- NOTE | 2017-05-15 10:46 | PDIAF ---
- Diagnosis Diagnosis: Afib with RVR, RLE pain post-op Code Status: Full Code - Medication Management Discharge Medications: Medications to Continue on Transfer Ascorbic Acid [Vitamin C 500 mg (*)] 1,000 mg PO DAILY 03/27/17 [Last Taken 08:00] Calcium Carbonate [Oyster Shell Calcium 500 mg (*)] 500 mg PO BID 03/27/17 [ Last Taken 05/12/17 22:00] Acetaminophen [Tylenol 325mg (*)] 650 mg PO Q4HRS PRN tab 05/08/17 [Last Taken 05/12/17 21:00] Diltiazem Xr [Dilacor Xr] 240 mg PO DAILY #30 cap 05/08/17 [Last Taken 05/12/17 08:00] Ferrous Sulfate [Slow Fe 140 MG (*)] 140 mg PO DAILY #30 tab.er 05/08/17 [Last Taken 05/12/17 08:00] LORazepam [Ativan (*)] 0.5 mg PO Q4HRS PRN #10 tab 05/08/17 [Last Taken Unknown] Levothyroxine [Synthroid 112 mcg (*)] 112 mcg PO DAILY #30 tab 05/08/17 [Last Taken 05/06/17] Pantoprazole Sodium [Protonix 40mg (*)] 40 mg PO BID #60 tab 05/08/17 [Last Taken 05/12/17 22:00] Sertraline HCl [Zoloft 100mg (*)] 100 mg PO DAILY #30 tab 05/08/17 [Last Taken 05/12/17 08:00] Sucralfate [Carafate 1 GM (*)] 1 gm PO ACHS #120 tab 05/08/17 [Last Taken 22:00] traZODone [traZODONE 50MG (*)] 50 mg PO HS PRN #10 tab 05/08/17 [Last Taken Unknown] Aspirin [Aspirin 81mg (*)] 81 mg PO HS 05/13/17 [Last Taken 05/12/17 22:00] Herbals/Supplements -Info Only 1 ea PO DAILY 05/13/17 [Last Taken Unknown] Methocarbamol [Robaxin 500 mg (*)] 500 mg PO HS 05/13/17 [Last Taken 05/12/17 22 :00] Gabapentin [Neurontin 100 MG (*)] 200 mg PO HS #60 cap 05/15/17 [Last Taken Unknown] HYDROmorphone HCL [Dilaudid 2 mg (*)] 2 mg PO Q4HRS PRN #40 tab 05/15/17 [Last Taken Unknown] Mcfp Antibiotics: NA Discharge Medications: Refer to the Discharge Home Medication list for PRN reason. PICC Care - Routine: N/A - Orders Services needed: Home Care, Registered Nurse, Master Sta[facility] Co[employer] Unit, Physical Therapy, Occupational Therapy Home Care Face to Face: I certify that this patient was under my care and that I had the required [id number] encounter meeting the encounter requirements on the discharge day. My findings support the fact that the patient is homebound as defined in Home Care Face to Face Continued: CMS Chapter 7 Medicare Benefits Manual 30.1.1 , The condition of the patient is such that there exists a normal inability to leave home and consequently, leaving home would require a considerable and taxing effort. Isolation Type: None Oxygen: NA Diet Recommendation: no restrictions on diet Weigh Patient: weekly [place]: Not applicable Wound Care Instructions: keep clean Activity/Weight Bearing Restrictions: WBAT Equipment: Boot when out of bed, walker - Follow Up Care Current Providers and Referrals: NONE *PRIMARY CARE P,. [Primary Care Provider] - As per Instructions Donaldo Crabtree MD [Medical Doctor] - Makenzie Briggs MD [Medical Doctor] - 3-5 days
--- NOTE | 2017-05-15 15:01 | ASDISCHSUM ---
Discharge Information Plan Status:Home with Home Health Medically Cleared to Leave:05/14/2017 Discharge Date:05/15/2017 01:00 PM CM D/C Disposition: ADT D/C Disposition:Home Health Service Projected Discharge Date:05/15/2017 11:00 AM Transportation at D/C: Discharge Delay Reason: Follow-Up Date:05/15/2017 11:00 AM Discharge Slot: Final Diagnosis: Placement Information Referral Type:*Home Health Care Services Referral ID:[id number] Provider Name:[facility] Address 1:[address] [address] Address 2: City:[place] Selection Factors: State:[place] Patient Contact Information Contact Name:KARLEECRYSTAL Relationship:Friend Address: Work Phone: City: [facility] Phone: [facility] Code: Email: Financial Information Financial Class: Primary Plan Desc:MED[place] Primary Plan Number:[id number] Secondary Plan Desc: Secondary Plan Number: Assessment Information [facility] CM Progress Note CM Note CM Note Notes: Patient being admitted for uncontrolled A-fb and uncontrolled right lower leg pain due to recent tib/fib fracture (had ORIF with Dr Crabtree 03/27/17). Patient had 29 ED visits in 2017, and was admitted twice in February and once in March. Patient most recently d/c'd from [facility] on 05/08/17 to home with [facility] ([phone]) and [facility] ([phone]) homemaking services. Patient states "it went very badly" with [facility] and she ended up firing them. This CM put in a call to [facility]; have not heard back yet. Patient was with [facility] a couple of months ago but [facility] discharged pt from their services due to patient's noncompliance. Patient has been recommended to d/c to SNF in the past but has always declined and wanted to go home. Spoke with patient and she is now open to the idea of SNF placement, says she "does not like [facility]" but likes [facility] (she used to visit a friend there weekly). If pt continues to be open to SNF placement, anticipate DC to SNF (pt 1st choice [facility]); otherwise anticipate pt to dc home with [facility] and additional non-skilled home care services (pt states she has not looked into other agencies yet). Patient states she has a best friend who lives locally but that the friend has "refused to help me." Patient also has a sister who lives in [place] but she states they don't have the best relationship. Exact DC needs unknown, CM to follow. Date Signed: 05/13/2017 12:05 PM Electronically Signed By:Marjorie Harrison RN [facility] Progress Note CM Note CM Note Notes: Patient is not eligible for LTC Medicaid placement with SNF due to her assets. Spoke with patient today who is happy with [facility] and willing to continue with them. They only got one visit in and the patient did not answer the door for the second visit with occupational therapist. Patient thinks she might have confused them with the [facility] people she fired and that is why she didn't answer the door. We discussed in depth her need for a plan regarding her living circumstances which are overwhelming to her. Patient states she is ready to sell her house and downsize to a home on one level and has considered skilled nursing and/or assisted living. She needs support with this, however, and her best friend and she have had a falling out. Patient has a sister but they do not get along and she is not available to help. We reviewed a short term plan (home health to get her stronger) and a intermediate designer plan (sell her house and move to assisted living facility or a senior home like [facility]). Patient is ready to sell her house and wants to get a more supportive living environment. Patient is aware she had 29 visits to our ER in 2017 and knows she needs to make a change.[facility] will continue to follow at d/c. Currently resarching a different [facility] service since patient fired [facility]. Patient also expressed interest in having a counselor she can talk to regularly for her depression, etoh use, and other issues. She was given [facility] to pursue getting an appointment. She has to make the appointment herself with [facility] as a result of their intake process. CM will follow. Date Signed: 05/14/2017 03:31 PM Electronically Signed By:Ruthie Dill LCSW Case Management Discharge Plan Note Case Management Discharge Discharge Order Complete? Answers: Yes Patient to Obtain Answers: Independently Medications Transportation Arranged Answers: Taxi - Self Pay EMTALA Complete Answers: No Case Management Transport Answers: No Form Complete Faxed Final Orders Answers: Yes Agency/Facility Transfer Answers: Yes Report Printed & Faxed to Receiving Agency Family Notified Answers: No Discharge Comments Notes: CM spoke w/ Dr. Farrar and Perri, [facility] regarding d/c POC. CM met w/ pt for dispo planning. Pt is being discharged home w/ [facility] . CM spoke w/ Family and they are able to meet w/ pt today. [facility] will also be able to provided unskilled care. Family will contact pt directly to schedule care. CM available for changes. Plan: [facility], PT, RN, OT, SW and [facility] non skilled HC Date Signed: 05/15/2017 12:30 PM Electronically Signed By:HERRERA Ashley Intervention Information
--- NOTE | 2017-05-15 15:12 | PDDCSUM ---
Discharge Summary Discharge Summary: DISCHARGE SUMMARY FOLLOW-UP ITEMS: Follow-up with PCP regarding pain management DATE OF ADMISSION: 05/13/2017 DATE OF DISCHARGE: 05/15/2017 DISCHARGE DIAGNOSES: 1. Paroxysmal Atrial fibrillation with acute rapid ventricular response 2. Acute on chronic right lower extremity pain 3. Chronic alcoholism CONSULTATIONS: Problem: From Orthopedics PROCEDURES / IMAGING: X-ray demonstrating good bone alignment Ultrasound right lower extremity demonstrating no DVT PICC placement CHIEF COMPLAINT: Acute palpitations, right lower extremity pain SUBJECTIVE: Patient is feeling well at time of discharge, she is not experiencing any pain in her right lower extremity, she is somewhat anxious, depressed about her living situation PHYSICAL EXAM ON DISCHARGE: Systolic blood pressure 100, heart rate 80, afebrile overnight, saturating 92% on room air, alert awake oriented x3, intermittent amount of distress, occasionally tearful, situationally depressed, right lower extremity has no tenderness to palpation, no significant edema, well-healing incision sites with sutures remaining in the mid catheterization incision site, no significant erythema LABS ON DISCHARGE: Creatinine 0.5, potassium 4, serum sodium 136, hemoglobin 10.1, total bilirubin 1.9 HOSPITAL COURSE BY PROBLEM: The patient presented with acute right lower extremity pain, likely provoking her paroxysmal atrial fibrillation and resulting in acute rapid ventricular response. The pain in her right lower extremity is secondary to recent surgery performed by Dr. Donaldo Crabtree, and the patient has had in effective control of her pain as an outpatient utilizing [place], Robaxin, Tylenol, and low-dose gabapentin. We adjusted her pain medication to include oral Dilaudid, at bedtime Robaxin, as needed Tylenol, and increased dose gabapentin of 200 mg at bedtime. This regimen seemed to be effective and was not resulting in constipation. The patient's atrial fibrillation was treated initially with an IV diltiazem drip, and she was monitored in the PCU. She chemically cardioverted into a normal sinus mechanism and has remained as such with oral diltiazem. The patient has maintained normal sinus rhythm while on her home dosage of oral diltiazem, and she will continue to 240 mg daily. She is currently off of systemic anticoagulation secondary to a significant bleeding event, and she is utilizing aspirin for CVA prevention. The patient understands that it is important for her to take her diltiazem every day at a similar time, and that she should use the above medications to manage her pain, to avoid provoking her AFib in the future. I have also counseled the patient not to drink alcohol, as alcohol consumption and withdrawal both have been known to provoked atrial fibrillation this patient in the past. The patient received this counseling well, and she continues to be committed to sobriety. The patient will follow up closely with her primary care provider, with whom she expressed that she has a positive relationship. The patient was distressed about returning home and not qualifying for alf Medicare/Medicaid, but, by the time of discharge, she was encouraged by the support she received from case management and all appropriate arrangements for home care were made. DISCHARGE MEDICATIONS: Please see official discharge medication reconciliation sheet in chart , continue home medications with the addition of Dilaudid 2 mg as needed, 40 tablets prescribed, increase gabapentin to 200 mg at bedtime, discontinue [place]. DISCHARGE INSTRUCTIONS: Please follow up with Dr. Briggs within 3-5 days. TIME SPENT: Greater than 30 minutes were spent on direct patient care, as well as discharge planning and preparation.
[2017-05-16] MEDS ORDERED: THIAMINE HCL 100 MG TAB PO SCH (13:27)
== END 2017-05-15 13:00 | disposition home health service (06) | DRG 309 ==
LOC: EDUNIT# → F2W 12:40
PROVIDERS: ADMIT Internal Medicine; ATTEND Internal Medicine
PROC: 02HV33Z Insertion of Infusion Device into Superior Vena Cava, Percutaneous Approach (ICD-10-PCS; principal; 2017-05-13)
DX: I48.0 Paroxysmal atrial fibrillation (principal); F10.239 Alcohol dependence with withdrawal, unspecified; G89.29 Other chronic pain; G89.18 Other acute postprocedural pain; E03.9 Hypothyroidism, unspecified; F32.9 Major depressive disorder, single episode, unspecified; S82.391D Other fracture of lower end of right tibia, subsequent encounter for closed fracture with routine healing; S82.831D Other fracture of upper and lower end of right fibula, subsequent encounter for closed fracture with routine healing
CPT/HCPCS: 96365; 96366; 97110-GP; 97116-GP; 97161-GP; 97166-GO; C1751; J1170; J1650; J1885; J2060; J2405

== ENCOUNTER 2017-05-16 14:55 | Emergency (ER) | payer MEDICAID ==
[2017-05-16] MEDS ORDERED: ONDANSETRON DISINTEGRATING 4 MG TAB ONE (15:32)
[2017-05-16 15:45] VITALS: RESP 18
[2017-05-16] MEDS ORDERED: HYDROmorphONE/DILAUDID 2 MG TAB PO ONE (16:09)
[2017-05-16] MEDS ORDERED: GABAPENTIN 300 MG CAP PO ONE (16:09)
--- NOTE | 2017-05-16 16:13 | EDPHY ---
H & P Stated Complaint: foot pain Time Seen by Provider: 05/16/17 15:43 HPI/ROS: CHIEF COMPLAINT: Right ankle pain HISTORY OF PRESENT ILLNESS: The patient is a 61-year-old female who who comes to the emergency department complaining of right ankle pain. She was discharged yesterday for chronic right ankle pain as well as paroxysmal AFib with RVR and chronic alcoholism. He she fractured her right tib-fib in February and had surgery with Dr. Crabtree. She was using outpatient [place], Robaxin Tylenol and gabapentin without adequate control of her pain. While in the hospital she they added oral Dilaudid, and increased her gabapentin to 200 mg. She seemed to do better with this and was discharged but has not filled her prescriptions. She initially denied to me that she was in the hospital yesterday until the we reviewed the medical record together. While she was here she had an x-ray and ultrasound of her leg. She denies any new trauma. No increased swelling or erythema or warmth. She is here stating that her pain is severe. She does have a history of DVT as well but is not on anticoagulants because of history of GI bleeding. REVIEW OF SYSTEMS: Constitutional: denies: chills, fever, recent illness, recent injury EENTM: denies: blurred vision, double vision, nose congestion Respiratory: denies: cough, shortness of breath Cardiac: denies: chest pain, irregular heart rate, lightheadedness, palpitations Gastrointestinal/Abdominal: denies: abdominal pain, diarrhea, nausea, vomiting, blood streaked stools Genitourinary: denies: dysuria, frequency, hematuria, pain Musculoskeletal: denies: joint pain, muscle pain Skin: denies: lesions, rash, jaundice, bruising Neurological: denies: headache, numbness, paresthesia, tingling, dizziness, weakness Hematologic/Lymphatic: denies: blood clots, easy bleeding, easy bruising Immunologic/allergic: denies: HIV/AIDS, transplant EXAM: GENERAL: Well-appearing, well-nourished and in no acute distress. HEAD: Atraumatic, normocephalic. EYES: Pupils equal round and reactive to light, extraocular movements intact, sclera anicteric, conjunctiva are normal. ENT: TMs normal, nares patent, oropharynx clear without exudates. Moist mucous membranes. NECK: Normal range of motion, supple without lymphadenopathy or JVD. LUNGS: Breath sounds clear to auscultation bilaterally and equal. No wheezes rales or rhonchi. HEART: Regular rate and rhythm without murmurs, rubs or gallops. ABDOMEN: Soft, nontender, normoactive bowel sounds. No guarding, no rebound. No masses appreciated. BACK: No CVA tenderness, no spinal tenderness, step-offs or deformities EXTREMITIES: Right lower extremity with mild swelling which she states is baseline, minimal erythema and warmth which are also baseline. NEUROLOGICAL: Cranial nerves II through XII grossly intact. Normal speech, normal gait. 5/5 strength, normal movement in all extremities, normal sensation PSYCH: Normal mood, normal affect. SKIN: See above Source: Patient Exam Limitations: No limitations - Personal History Current Tetanus/Diphtheria Vaccine: Yes Current Tetanus Diphtheria and Acellular Pertussis (TDAP): Yes Tetanus Vaccine Date: 2014 - Medical/Surgical History Hx Asthma: No Hx Chronic Respiratory Disease: No Hx Diabetes: No Hx Cardiac Disease: Yes Hx Renal Disease: No Hx Cirrhosis: No Hx Alcoholism: Yes Hx HIV/AIDS: No Hx Splenectomy or Spleen Trauma: No Other PMH: PMHx: Alcoholism, degenerative disc disease, osteoarthritis, scoliosis, heart murmur, a-fib, C difficile-Dec 2015, hx withdrawal, pancreatitis, R leg fx. PSHx: tonsillectomy - Family History Significant Family History: No pertinent family hx - Social History Smoking Status: Never smoked Alcohol Use: Heavy Drug Use: Marijuana Constitutional: Initial Vital Signs Temperature (C) 37.1 C 05/16/17 15:42 Heart Rate 99 05/16/17 15:42 Respiratory Rate 18 05/16/17 15:42 Blood Pressure 137/83 H 05/16/17 15:42 O2 Sat (%) 97 05/16/17 15:42 O2 Delivery Mode Room Air Allergies/Adverse Reactions: Sulfa (Sulfonamide Antibiotics) Allergy (Mild, Verified 04/25/17 16:46) Rash Home Medications: Medication Instructions Recorded Ascorbic Acid [Vitamin C 500 mg 1,000 mg PO DAILY 03/27/17 (*)] Calcium Carbonate [Oyster Shell 500 mg PO BID 03/27/17 Calcium 500 mg (*)] Acetaminophen [Tylenol 325mg (*)] 650 mg PO Q4HRS PRN tab 05/08/17 Diltiazem Xr [Dilacor Xr] 240 mg PO DAILY #30 cap 05/08/17 Ferrous Sulfate [Slow Fe 140 MG 140 mg PO DAILY #30 tab.er 05/08/17 (*)] LORazepam [Ativan (*)] 0.5 mg PO Q4HRS PRN #10 tab 05/08/17 Levothyroxine [Synthroid 112 mcg 112 mcg PO DAILY #30 tab 05/08/17 (*)] Pantoprazole Sodium [Protonix 40mg 40 mg PO BID #60 tab 05/08/17 (*)] Sertraline HCl [Zoloft 100mg (*)] 100 mg PO DAILY #30 tab 05/08/17 Sucralfate [Carafate 1 GM (*)] 1 gm PO ACHS #120 tab 05/08/17 traZODone [traZODONE 50MG (*)] 50 mg PO HS PRN #10 tab 05/08/17 Aspirin [Aspirin 81mg (*)] 81 mg PO HS 05/13/17 Herbals/Supplements -Info Only 1 ea PO DAILY 05/13/17 Methocarbamol [Robaxin 500 mg (*)] 500 mg PO HS 05/13/17 Gabapentin [Neurontin 100 MG (*)] 200 mg PO HS #60 cap 05/15/17 HYDROmorphone HCL [Dilaudid 2 mg 2 mg PO Q4HRS PRN #40 tab 05/15/17 (*)] Medical Decision Making ED Course/Re-evaluation: 4:30 p.m. the patient has had a recent ultrasound and x-ray which were unremarkable. The nurse who is with her today saw her 2 days ago and confirms that her is exam unchanged. I also discussed this with Dr. Farrar who confirmed this. He states that her Dilaudid was supposed to be filled at the pharmacy here. We will check and see if it is available. The patient also admits to go out drinking with her friends last night rather than filling her prescriptions. We will attempt to get her prescription and discharge her. Dr. Farrar said that they have tried several times to place her in a fpc facility but she has too many assets to qualify. She is feeling better after her oral Dilaudid. Case management has got involved and is concerned the patient has sold her Dilaudid because 40 tablets were delivered to her room last night by pharmacy and currently is not in her possession. There talking with her about this now. Differential Diagnosis: Partial list of the Differential diagnosis considered include but were not limited to; chronic pain, opiate dependency, alcoholism the and although unlikely based on the history and physical exam, I also considered infection, DVT, trauma. I discussed these differential diagnoses and the plan with the patient as well as the usual and expected course. The patient understands that the diagnosis is provisional and that in medicine we are not always correct and that further workup is often warranted. Usual and customary warnings were given. All of the patient's questions were answered. The patient was instructed to return to the emergency department should the symptoms at all worsen or return, otherwise to followup with the physician as we discussed. - Data Points Medications Given: Discontinued Medications Gabapentin (Neurontin) 300 mg PO EDNOW ONE Stop: 05/16/17 16:10 Last Admin: 05/16/17 16:23 Dose: 300 mg Hydromorphone HCl (Dilaudid) 2 mg PO EDNOW ONE Stop: 05/16/17 16:10 Last Admin: 05/16/17 16:23 Dose: 2 mg Departure - Departure Disposition: Home, Routine, Self-Care Clinical Impression: Alcohol abuse Leg pain Qualifiers: Laterality: right Qualified Code(s): M79.604 - Pain in right leg Opiate dependence Qualifiers: Substance use status: with unspecified opioid-induced disorder Qualified Code(s ): F11.29 - Opioid dependence with unspecified opioid-induced disorder Condition: Fair Instructions: Leg Pain (ED), Alcohol Dependence (ED) Referrals: NONE *PRIMARY CARE P,. [Primary Care Provider] - As per Instructions [facility],. [Clinic] - As per Instructions Donaldo Crabtree MD [Medical Doctor] - As per Instructions
[2017-05-16 17:38] VITALS: BP 132/82; PULSE 84; TEMP 97.9; O2SAT 96
--- NOTE | 2017-05-16 17:48 | ASMTCMCOM ---
CM Note CM Note Notes: Patient presents to the ER today c/o pain and requesting pain medication and admission. Chart reviewed, including detailed CM note from yesterday 05/14/17. Patient was discharged home from IP room 219 yesterday. Please see chart for extensive history I have called the [facility] at [facility] and confirmed with Britt (pharmacist aide) that patient had a prescription filled yesterday, prior to discharge, for Hydromorphone 2mg #40. per Dr. Farrar. Prescription was filled through this [facility] and delivered to patient's room (219). Patient signed for this medication. I have spoken with patient about this. She does not deny receiving this medication but tells me she does not remember receiving it. She has several pill bottles of medication with her from home but tells me she does not know where the pain medication is. She admits to having a "male friend" over last night and tells me that "he would never be involved with taking athese meds". Patient admits to being an alcoholic. I have talked with her about the dangers of mixing strong narcotics with alcohol. I have also expressed concern about her "misplacing" her narcotics and/or them getting into the "wrong hands", including teens, etc. Patient assures me that she is sure her friend would not be interested in her medication. She tells me she will "look for the medication" when she gets home. "It must be in the bag I brought home". I have also discussed longer term planning with patient; plans for assisted living, avoiding isolation, reconnecting with support networks to assist in this process. Patient acknowledges her desire for these things and tells me she is "working on it." She admits to attending AA in the past and I have encouraged her to consider this again. Meanwhile, I have spoken with Viola from [facility] . Viola tells me that she had tried to discourage patient from returning to the hospital today. "We were on our way to see patient for a home visit and she (patient) said she couldn't wait. 'I'm in too much pain.' " Viola states that [facility] has worked with patient in the past and was re-referred to her yesterday upon discharge from hospital. They have had difficulty with this patient in regard to her "avoiding" her scheduled HH visits, etc. I discussed the medication concerns with Viola and she assures me that she will follow up with patient tomorrow and look for/confirm patient has her medications. I have encouraged Viola to reach out to CM in continued efforts to coordinate care. Dr. Dewey informed of above. CM will continue to be on alert for this complex patient. Date Signed: 05/16/2017 05:47 PM Electronically Signed By:Marlys Kapadia RN
== END 2017-05-16 17:38 | disposition home or self-care (01) ==
LOC: EDUNIT#
DX: M79.604 Pain in right leg (principal); F11.29 Opioid dependence with unspecified opioid-induced disorder; F10.10 Alcohol abuse, uncomplicated; Z79.82 Long term (current) use of aspirin

== ENCOUNTER 2017-05-19 18:28 | Emergency (ER) | payer MEDICAID ==
--- NOTE | 2017-05-19 18:31 | EDPHY ---
H & P Time Seen by Provider: 05/19/17 18:31 HPI/ROS: HPI: This is a 61-year-old female who presents with Chief Complaint: Constipation Location: Abdomen Quality: Constipation Duration: Greater 4 days Signs and Symptoms: no fever, + nausea, no vomiting, no hematemesis, no blood in stool, no abdominal bloating, no diarrhea, no back pain, no urinary symptoms , no vaginal bleeding/discharge, no indigestion, no chest pain, no shortness of breath Timing: Daily Severity: [id number] Context: Patient is a frequent visitor to the emergency room and known to be presents via EMS with complaints of no bowel movement in greater than 4 days. She reports that she was passing flatus up until today. She reports that she sips water all day long. Denies any history of constipation/hemorrhoids in the past. Patient reports that she feels nauseous but has not vomited. Denies fever/chills/abdominal pain/blood in stool. She has tried no fhwy-ckj-kbowcpb medications to aid in her bowel movement. Patient takes iron daily and note dark stools when she does have one. Modifying Factors: None Comment: ROS: see HPI Constitutional: No fever, no chills, no weight loss Eyes: No blurred vision Respiratory: No shortness of breath, no cough Cardiovascular: No chest pain, no palpitations Gastrointestinal: + nausea, no vomiting, no diarrhea, no hematemesis, no blood in stool Genitourinary: No dysuria, no blood in urine Extremities: No myalgias, no edema Neurologic: No weakness, no numbness Skin: No rashes, no petechiae Hematologic: No bruising, no bleeding MEDICAL/SURGICAL/SOCIAL HISTORY: PMHx: Alcoholism, degenerative disc disease, osteoarthritis, scoliosis, heart murmur, a-fib, C difficile-Dec 2015, hx withdrawal, pancreatitis, R leg fx PSHx: tonsillectomy Social history: Unemployed. CONSTITUTIONAL: Well-appearing elderly white female, awake and alert, no obvious distress HEENT: Atraumatic and normocephalic, PERRL, EOMI. Tympanic membranes clear. Oropharynx clear, no exudate and moist pink mucosa. Airway patent. No lymphadenopathy. No meningismus. Cardiovascular: Normal S1/S2, regular rate, regular rhythm, without murmur rub or gallop. PULMONARY/CHEST: Symmetrical and nontender. Clear to auscultation bilaterally. Good air movement. No accessory muscle usage. ABDOMEN: Soft, nondistended, nontender, no rebound, no guarding, no peritoneal signs, no masses or organomegaly. No CVAT. Hypoactive bowel sounds heard x4 quadrants. EXTREMITIES: 2/2 pulses, strength 5/5, right walking boot noted. no deformities , no clubbing, no cyanosis or edema. NEUROLOGICAL: no focal neuro deficits. GCS 15. SKIN: Warm and dry, no erythema. no rash. Good capillary refill. Source: Patient Exam Limitations: No limitations - Personal History Tetanus Vaccine Date: 2014 - Medical/Surgical History Hx Asthma: No Hx Chronic Respiratory Disease: No Hx Diabetes: No Hx Cardiac Disease: Yes Hx Renal Disease: No Hx Cirrhosis: No Hx Alcoholism: Yes Hx HIV/AIDS: No Hx Splenectomy or Spleen Trauma: No Other PMH: PMHx: Alcoholism, degenerative disc disease, osteoarthritis, scoliosis, heart murmur, a-fib, C difficile-Dec 2015, hx withdrawal, pancreatitis, R leg fx. PSHx: tonsillectomy - Social History Smoking Status: Never smoked Constitutional: Initial Vital Signs Temperature (C) 37.5 C 05/19/17 18:35 Heart Rate 89 05/19/17 18:35 Respiratory Rate 18 05/19/17 18:35 Blood Pressure 133/78 H 05/19/17 18:35 O2 Sat (%) 97 05/19/17 18:35 O2 Delivery Mode Room Air Allergies/Adverse Reactions: Sulfa (Sulfonamide Antibiotics) Allergy (Mild, Verified 04/25/17 16:46) Rash Home Medications: Medication Instructions Recorded Ascorbic Acid [Vitamin C 500 mg 1,000 mg PO DAILY 03/27/17 (*)] Calcium Carbonate [Oyster Shell 500 mg PO BID 03/27/17 Calcium 500 mg (*)] Acetaminophen [Tylenol 325mg (*)] 650 mg PO Q4HRS PRN tab 05/08/17 Diltiazem Xr [Dilacor Xr] 240 mg PO DAILY #30 cap 05/08/17 Ferrous Sulfate [Slow Fe 140 MG 140 mg PO DAILY #30 tab.er 05/08/17 (*)] LORazepam [Ativan (*)] 0.5 mg PO Q4HRS PRN #10 tab 05/08/17 Levothyroxine [Synthroid 112 mcg 112 mcg PO DAILY #30 tab 05/08/17 (*)] Pantoprazole Sodium [Protonix 40mg 40 mg PO BID #60 tab 05/08/17 (*)] Sertraline HCl [Zoloft 100mg (*)] 100 mg PO DAILY #30 tab 05/08/17 Sucralfate [Carafate 1 GM (*)] 1 gm PO ACHS #120 tab 05/08/17 traZODone [traZODONE 50MG (*)] 50 mg PO HS PRN #10 tab 05/08/17 Aspirin [Aspirin 81mg (*)] 81 mg PO HS 05/13/17 Herbals/Supplements -Info Only 1 ea PO DAILY 05/13/17 Methocarbamol [Robaxin 500 mg (*)] 500 mg PO HS 05/13/17 Gabapentin [Neurontin 100 MG (*)] 200 mg PO HS #60 cap 05/15/17 HYDROmorphone HCL [Dilaudid 2 mg 2 mg PO Q4HRS PRN #40 tab 05/15/17 (*)] Medical Decision Making - Diagnostics Imaging Results: Imaging Impressions Abdomen X-Ray 05/19/17 18:42 Impression: No findings to suggest constipation or obstruction. ED Course/Re-evaluation: Abdominal x-ray ordered Abdomen exam is soft and nontender. Doubt surgical abdomen. Afebrile and no systemic signs. Abdominal x-ray shows no signs of constipation/obstruction. Abdominal soft and nontender. Doubt surgical abdomen. No need to order CT abdomen and pelvis at this time. Dulcolax supp given and good large BM in ER This patient was seen under the supervision of my primary supervising physician. I evaluated care for this patient independently. Discussed this patient with Dr. Luis who did not see the patient. Differential Diagnosis: Differential diagnosis includes but is not limited to constipation, obstipation , small-bowel obstruction. - Data Points Medications Given: Discontinued Medications Bisacodyl (Dulcolax Rectal) 10 mg VT EDNOW ONE Stop: 05/19/17 19:12 Last Admin: 05/19/17 19:54 Dose: 10 mg Magnesium Citrate (Magnesium Citrate) 300 ml PO ONCE ONE Stop: 05/19/17 19:53 Last Admin: 05/19/17 19:54 Dose: 1 btl Departure - Departure Disposition: Home, Routine, Self-Care Clinical Impression: Constipation Qualifiers: Constipation type: unspecified constipation type Qualified Code(s): K59.00 - Constipation, unspecified Condition: Good Instructions: Constipation (ED) Additional Instructions: Consume a minimum of 8-10 glasses of water or electrolyte fluid replacement drinks that include Gatorade, Powerade, Pedialyte. Eat a bland diet for the next 48 hours and then slowly advance as tolerated. Return to the Emergency Room if symptoms do not resolve in the next 48-72 hours , you spike a fever > 102 F, or experience intractable abdominal pain/nausea/ vomiting. Referrals: [facility],. [Clinic] - As per Instructions
[2017-05-19 18:37] VITALS: BP 133/78; PULSE 89; RESP 18; TEMP 99.5; O2SAT 97
[2017-05-19] MEDS ORDERED: BISACODYL 10 MG SUPP PR ONE ×2 (19:11→19:53)
[2017-05-19] MEDS ORDERED: MAGNESIUM CITRATE 300 ML BOTTLE PO ONE (19:52)
== END 2017-05-19 19:30 | disposition home or self-care (01) ==
LOC: EDUNIT#
DX: K59.00 Constipation, unspecified (principal); Z79.82 Long term (current) use of aspirin

== ENCOUNTER 2017-05-20 10:11 | Emergency (ER) | payer MEDICAID ==
[2017-05-20 10:18] VITALS: RESP 18
--- NOTE | 2017-05-20 10:30 | EDPHY ---
H & P Stated Complaint: contipation and leaking stool Time Seen by Provider: 05/20/17 10:12 HPI/ROS: CHIEF COMPLAINT: "Anal leakage " HISTORY OF PRESENT ILLNESS: 61-year-old female familiar to emergency department staff arrives via ambulance complaining of loose stool. She was seen emergency department last evening for constipation, was given magnesium citrate, sent home, states that throughout the evening she has not had a significant bowel movement but notes "anal leakage". No incontinence. No fever or chills. No nausea or vomiting. REVIEW OF SYSTEMS: A ten point review of systems was performed and is negative with the exception of the items mentioned in the HPI PAST MEDICAL & SURGICAL HISTORY: Alcoholism. Degenerative disc disease. SOCIAL HISTORY: History of alcoholism PHYSICAL EXAM (Prior to examination, patient consented to physical exam, hands were washed and my usual and customary physical exam procedures followed) 1) GENERAL: Well-developed, well-nourished, alert and oriented. Appears to be in no acute distress. 2) HEAD: Normocephalic, atraumatic 3) HEENT: Pupils equal, round, reactive to light bilaterally. Sclera anicteric. [Nasopharynx, oropharynx, clear, no lesions. Moist mucous membrane 4) NECK: Full range of motion, no meningeal signs. 5) LUNGS: Clear auscultation bilaterally, no wheezes, no rhonchi, no retractions. 6) HEART: Regular rate and rhythm, no murmur, no heave, no gallop. 7) ABDOMEN: No guarding, no rebound, no focal tenderness, negative McBurney's, negative Sandy's, negative Rovsing's, negative peritoneal sign, 8) MUSCULOSKELETAL: Moving all extremities, no focal areas of tenderness, no obvious trauma. No peripheral edema or discoloration. 9) BACK: No CVA tenderness, no midline vertebral tenderness, no fluctuance, no step-off, no obvious trauma, no visual or palpable abnormality. 10) SKIN: No rash, no petechiae. 11)RECTAL (with nurse Kiley at bedside): normal rectal tone, no stool in rectal vault. DIFFERENTIAL DIAGNOSIS: In no particular include but limited to small-bowel obstruction, acute appendicitis, constipation - Personal History Current Tetanus/Diphtheria Vaccine: Yes Current Tetanus Diphtheria and Acellular Pertussis (TDAP): Yes Tetanus Vaccine Date: 2014 - Medical/Surgical History Hx Asthma: No Hx Chronic Respiratory Disease: No Hx Diabetes: No Hx Cardiac Disease: Yes Hx Renal Disease: No Hx Cirrhosis: No Hx Alcoholism: Yes Hx HIV/AIDS: No Hx Splenectomy or Spleen Trauma: No Other PMH: PMHx: Alcoholism, degenerative disc disease, osteoarthritis, scoliosis, heart murmur, a-fib, C difficile-Dec 2015, hx withdrawal, pancreatitis, R leg fx. PSHx: tonsillectomy - Social History Smoking Status: Never smoked Constitutional: Initial Vital Signs Temperature (C) 36.6 C 05/20/17 10:17 Heart Rate 83 05/20/17 10:17 Respiratory Rate 18 05/20/17 10:17 Blood Pressure 139/70 H 05/20/17 10:17 O2 Sat (%) 99 05/20/17 10:17 O2 Delivery Mode Room Air Allergies/Adverse Reactions: Sulfa (Sulfonamide Antibiotics) Allergy (Mild, Verified 04/25/17 16:46) Rash Home Medications: Medication Instructions Recorded Ascorbic Acid [Vitamin C 500 mg 1,000 mg PO DAILY 03/27/17 (*)] Calcium Carbonate [Oyster Shell 500 mg PO BID 03/27/17 Calcium 500 mg (*)] Acetaminophen [Tylenol 325mg (*)] 650 mg PO Q4HRS PRN tab 05/08/17 Diltiazem Xr [Dilacor Xr] 240 mg PO DAILY #30 cap 05/08/17 Ferrous Sulfate [Slow Fe 140 MG 140 mg PO DAILY #30 tab.er 05/08/17 (*)] LORazepam [Ativan (*)] 0.5 mg PO Q4HRS PRN #10 tab 05/08/17 Levothyroxine [Synthroid 112 mcg 112 mcg PO DAILY #30 tab 05/08/17 (*)] Pantoprazole Sodium [Protonix 40mg 40 mg PO BID #60 tab 05/08/17 (*)] Sertraline HCl [Zoloft 100mg (*)] 100 mg PO DAILY #30 tab 05/08/17 Sucralfate [Carafate 1 GM (*)] 1 gm PO ACHS #120 tab 05/08/17 traZODone [traZODONE 50MG (*)] 50 mg PO HS PRN #10 tab 05/08/17 Aspirin [Aspirin 81mg (*)] 81 mg PO HS 05/13/17 Herbals/Supplements -Info Only 1 ea PO DAILY 05/13/17 Methocarbamol [Robaxin 500 mg (*)] 500 mg PO HS 05/13/17 Gabapentin [Neurontin 100 MG (*)] 200 mg PO HS #60 cap 05/15/17 HYDROmorphone HCL [Dilaudid 2 mg 2 mg PO Q4HRS PRN #40 tab 05/15/17 (*)] Peg 3350/Na Sulf,Bicarb,Cl/KCl 1,000 ml PO ONCE #4000 ml 05/20/17 [Golytely (RX)] Medical Decision Making ED Course/Re-evaluation: Old medical records reviewed. Discussed case with secondary supervising physician Dr. Otis Tom in the ER. Doubt acute surgical abdominal pathology. Doubt bowel obstruction. Plan will be discharge with Lori, discussed management options for acute constipation. She feels comfortable with this plan. Departure - Departure Disposition: Home, Routine, Self-Care Clinical Impression: Constipation Condition: Good Instructions: Constipation (ED) Additional Instructions: Seek immediate medical attention if you develop new or worsening symptoms, if you develop fevers, chills, inability to tolerate oral intake or any other symptoms that concerns you. Referrals: [facility],. [Clinic] - As per Instructions Prescriptions: Peg 3350/Na Sulf,Bicarb,Cl/KCl [Golytely (RX)] 1,000 ml PO ONCE #4000 ml
[2017-05-20 12:00] VITALS: BP 122/89; PULSE 95; TEMP 98.4; O2SAT 96
--- NOTE | 2017-05-20 15:18 | ASMTCMCOM ---
CM Note CM Note Notes: Pt presented to the ER today w/ diarrhea and c/o constipation. Met w/ pt at the request of Roman Peña PA-C and HEMANTH Cao. Pt reports "constipation" brought her in, "the same damn thing as yesterday." Pt with multiple recent ER visits, including two inpt hospitalizations. Asked pt about her situation at home. She says she "owns her house, lives alone" and is "having a hard time doing things right now." She reports her "last drink was Sunday night." Per CM notes, pt was discharged from [facility] (2[facility]) with [facility] (RN/PT/OT/SW) and [facility] on 05/15/17. Discussed home care at length w/ pt. Asked pt if home care had been coming to her house, pt seemed confused stating "someone has been out, but I am not sure who." Per prior CM notes, Occupational therapy attempted to see pt the other day, but pt didn't answer the door. Asked pt if she has been refusing services - pt stated she doesn't remember that, but remembers having an RN visit and believes she "may have canceled other appointments." Asked pt about [facility], pt was familiar with the company and said someone came out recently, but "now her favorite sauce pot is missing, so she hasn't had them come back since." Call placed to Viola at [facility] . Per Viola, pt is current with them. Asked Viola about services and status of visits with PT, OT, SW and nursing. Viola reported that "Shalonda, the visiting nurse, was on her way to see the pt the other day when the pt said she was having horrible pain and was going to the ER because she couldn't find her medication." "Shalonda instructed the pt to wait for her and said that she would be there in just a minute to help her find the medication." The pt refused and called 911. CM asked pt about her recent ER visits, the pt denies being seen for pain, stating "I was never here looking for my pain medication because I know exactly where it is." Viola also reports that Occupational and Physical therapy have attempted visits and the pt refused to open her door because "she was just too tired." At request, Viola called Shalonda, the visiting nurse, to confirm that the pt will be seen on Sun05/21/17. Viola confirmed an appointment is scheduled for 1500. Viola wanted to know that if the patient refuses her visit tomorrow, [facility] will have to discontinue services, stating "the patient is utilizing a lot of resources and is costing the company lots of money." Call placed to Cierra at [facility] . Per Cierra, "the pt was current with them until the end of March, at which time services were discontinued because they were no longer needed." Cierra showed a record of Marjorie Christy's call on 05/13/17 inquiring about services. The pt's Product Development Actuary, Esvin, attempted to reach the pt at that time, but never received a call back. Per Cierra, "there were previous concerns regarding the condition of the pt's home and the pt was asked to retain another company to clean the home up prior to another visit." Cierra said she would reinstate services and would contact Esvin on Sunday05/21/17. Requested Cierra call [facility] on Sunday to schedule the intake appointment, in addition to calling the patient. would like to ensure the visit is scheduled for Sun05/21/17 prior to the home care appointment. Cierra agreed. CM phone number provided. Update provided to Roman Peña and Kiley. Met w/ pt to explain that Esvin morales/ Mark Anthony Sterling would be out to see pt on Sun05/21/17 for an intake visit and that [facility] would send Shalonda at 1500 for a visit. Explained to pt that if she refuses the visit with home care tomorrow, her services will be discontinued and the company will not see her again. Explained the difficulty in setting up new services. Encouraged pt to answer her phone tomorrow and to communicate with home care. Pt also encouraged to discuss her symptoms and concerns with the home care nurse. Appointment information provided in writing to pt. Pt verbalized understanding. Asked pt if she has family or friends who might be able to assist her with moving and/or finding additional assistance/resources. Pt said she has been "talking about moving to a ground level apartment" with her friends, but hasn't done anything about it. Pt asked CM to "get some water and to stop lecturing her." Update provided to Kiley. CM avail for any further issues or concerns. Discharge Plan: Home w/ [facility] (RN/PT/OT/SW), appt Sun05/21/17 at 1500 w/ Shalonda and [facility], intake appt Sun05/21/17 w/ Esvin, time to be determined Date Signed: 05/20/2017 03:17 PM Electronically Signed By:Renea España RN
== END 2017-05-20 11:56 | disposition home or self-care (01) ==
LOC: EDUNIT#
DX: K59.00 Constipation, unspecified (principal); Z79.82 Long term (current) use of aspirin

== ENCOUNTER 2017-05-30 20:57 | Inpatient (IN) | payer MEDICAID ==
[2017-05-30] MEDS ORDERED: NS 1,000 ML IV ONE ×2 (22:01→22:44)
--- NOTE | 2017-05-30 22:03 | EDPHY ---
HPI/HX/ROS/PE/MDM Narrative: CHIEF COMPLAINT: "I've been vomiting since 8 o'clock this morning and it's because I drank too much last night" HPI: The patient is a 61 y/o female with a long history of alcohol abuse and 33 prior ED visits here in the last year complaining of persistent vomiting for the last 14 hours. Her medical history includes atrial fibrillation, GI bleed, pancreatitis, and Lisa-Murphy tear. She was taken off her anticoagulants last month due to the GI bleed. She reports her symptoms today feel exactly the same as prior vomiting episodes following binge drinking. She describes non-bloody emesis. She denies chest pain, dyspnea, fever, diarrhea, abdominal pain, or other complaints. REVIEW OF SYSTEMS: Aside from elements discussed in the HPI, a comprehensive 10-point review of systems was reviewed and is negative. PMH includes: 1. Alcoholism x20 years. Pint of vodka per week. 2. Paroxysmal atrial fibrillation previously on anticoagulants but stopped due to GI bleed 03/2017 3. GI bleeding secondary to gastric ulceration and Lisa-Murphy tear 03/2017 4. DVT of right lower extremity 5. Hypothyroidism 6. Pancreatitis 7. Coagulopathy felt secondary to long-standing EtOH abuse 8. History of C.difficile 2015 9. Depression 10. ORIF tib-fib 03/26/17 11. Remote tonsillectomy and appendectomy Prior medical records reviewed including admission 05/13/17 for rapid heart rate and RLE pain. SOCIAL HISTORY: Nonsmoker. Heavy alcohol abuse. Lives alone. PHYSICAL EXAM: General:Patient is alert, sitting up, in no acute distress. Mildly pale. Holding cup of non-bloody emesis. ENT:Eyes are normal to inspection. ENT inspection normal. Neck: Normal inspection. Full range of motion. Respiratory:No respiratory distress. Breath sounds normal bilaterally. Cardiovascular: Regular rate and rhythm. Strong peripheral pulses. Normal cap refill. Abdomen:The abdomen is nontender to palpation. There are no peritoneal signs. There are normal bowel sounds. Back: Normal to inspection. No tenderness to palpation. Skin: Mildly pale. No rash. Warm and dry. Extremities: Normal appearance. Full range of motion. Thrasher boot right foot. Neuro: Oriented x3. Normal motor function. Normal sensory function. ED Course: This is a 61 y/o female with chronic alcoholism presenting with a 14-hour history of nausea and persistent vomiting she attributes to drinking heavily last night. She is slightly pale, sitting up, and hold a cup of non-bloody emesis. Plan for IV, labs 2212: Patient started coughing then gasping as tech was preparing to place IV then became acutely unresponsive and apneic. RN was unable to rouse her and she was transferred emergently to the trauma bay and I was called in to assess. 2214: Agonal respirations and no pulse. CPR started. Ventilation by BVM. IO established. 2215: CPR paused, no pulse. Appears to be in asystole on monitor. CPR resumed. 2217: Epi administered. Plan for bedside US to assess cardiac activity. 2217: CPR paused. No strong pulse. CPR resumed. 2218: Limited beside cardiac US shows no cardiac activity. Preparing to intubate. Procedure: Limited transthoracic echocardiogram. A limited transthoracic echocardiogram was performed and interpreted by myself for cardiac arrest. Limited transthoracic echocardiogram: The pericardium was visualized and found to be negative for pericardial fluid. Cardiac activity was absent. The study was negative for pericardial effusion. The study demonstrated absence of cardiac activity. The procedure was interpreted and performed by myself, Dr. Yap. 2219: CPR paused. No pulses. V-fib on monitor, possibly Torsades. 2mg magnesium ordered. 2220: Shock delivered at 200J. CPR resumed. 2221: Intubated with 7.5 ETT under direct visualization. Procedure: Intubation Indication for the procedure was cardiopulmonary arrest. The patient was preoxygenated with 100% oxygen by BVM during CPR. No RSI medications were given as patient was GCS 3 in active arrest. The patient was orally endotracheally intubated under direct visualization with a 7.5 ETT. Tracheal intubation was confirmed with misting on the tube; breath sounds were auscultated equally bilaterally; appropriate color change with [place] CO2 detector. Chest X-ray shows ETT in good position. The procedure was performed by myself, Dr. Yap. 2221: CPR paused. 200J shock delivered. 2222: 2mg magnesium administered. 2224: CPR paused. Organized but irregular rhythm on monitor. Femoral pulse present. Plan for cooling with HACA protocol. 2225: BP 147/114. HR between 120-140. No pericardial effusion on US. Propofol drip ordered. 222: HR around 175 and irregular. BP 172/119. 223: The 12 lead EKG was interpreted by myself. Rapid atrial fibrillation. See hard copy and/or "tracemaster" electronic copy for interpretation. 2232: Chest x-ray: opacity on left side. Good placement of ETT. 2234: Consulted with Dr. Richardson, cardiology. He would like an amiodarone bolus of 150mg then amiodarone drip. 2235: ISTAT shows normal chemistries. 2239: OG tube ordered. Preparing for central line for cooling via Thermaguard. 2244: 150mg IV Amiodarone administered. 2247: HR 130, BP 97/70. Propofol drip decreased. Levophed ordered. 224: Procedure: Ultrasound guidance. Using the linear probe covered in a sterile sheath, a short axis of the vein was obtained. The vein was completely compressible and was identified as separate from the adjacent non-compressible arterial structure. Under real-time guidance, the introducer needle was observed up to the vein, and then punctured it. Indication: post cardiac arrest, HACA protocol Risks, benefits, alternatives not discussed with the patient due to emergent nature. Consent assumed. A timeout was observed. Full maximal sterile barrier technique was used including cap, gown, sterile gloves, large sheet, hand washing and chlorhexidine prep. The area was anesthetized with 1% lidocaine. A multi lumen Thermaguard catheter was placed in the right femoral vein using standard Seldinger technique. There were no complications. Blood return low pressure, dark blood. Patient tolerated procedure well. CXR results: Appropriate line placement, and no pneumothorax. X-ray was interpreted by myself. Radiologist interpretation is pending. The procedure was performed by myself, Dr. Yap. Patient is having some movement. Propofol drip increased to 50mg, Levophed drip at 20mg. 2257: HR 128. BP 90/67. Patient is currently on Levophed, Propofol, and Amiodarone drips. Spoke with hospitalist service. Dr. Zarate accepts admission. Critical care time spent by me, Dr. Yap, exclusively with this patient was 90 minutes, exclusive of PA time and exclusive of procedures. The organ system at risk was multisystem. Time spent in urgent assessment and interventions due to cardiopulmonary arrest, serial reassessments of the patient, consideration of different cardiac medications, cardiology consultation, and review of labs, EKGs, and imaging. - Data Points Imaging: I viewed and interpreted images myself Laboratory Results: Laboratory Results 05/30/17 22:35 05/30/17 22:35 05/30/17 05/30/17 05/30/17 22:35 22:35 22:35 WBC 22.54 10^3/uL H 10^3/uL (3.80-9.50) RBC 4.20 10^6/uL 10^6/uL (4.18-5.33) Hgb 13.7 g/dL g/dL (12.6-16.3) POC Hgb Hct 41.2 % % (38.0-47.0) POC Hct MCV 98.1 fL fL (81.5-99.8) MCH 32.6 pg pg (27.9-34.1) MCHC 33.3 g/dL g/dL (32.4-36.7) RDW 16.0 % H % (11.5-15.2) Plt Count 164 10^3/uL 10^3/uL (150-400) MPV 10.5 fL fL (8.7-11.7) Neut % (Auto) Not Reported Lymph % (Auto) Not Reported [place] % (Auto) Not Reported Eos % (Auto) Not Reported Baso % (Auto) Not Reported Nucleat RBC Rel Count 0.2 % % (0.0-0.2) Absolute Neuts (auto) Not Reported Absolute Lymphs (auto) Not Reported Absolute Monos (auto) Not Reported Absolute Eos (auto) Not Reported Absolute Basos (auto) Not Reported Absolute Nucleated RBC 0.05 10^3/uL H 10^3/uL (0-0.01) Immature Gran % Not Reported Immature Gran # Not Reported Platelet Estimate Pending PT 21.3 SEC H SEC (12.0-15.0) INR 1.84 H (0.83-1.16) APTT 59.2 SEC H SEC (23.0-38.0) POC Sodium Sodium 135 mEq/L mEq/L (135-145) POC Potassium Potassium 3.4 mEq/L L mEq/L (3.5-5.2) POC Chloride Chloride 102 mEq/L mEq/L (97-110) Carbon Dioxide 15 mEq/l L mEq/l (22-31) Anion Gap 18 mEq/L H mEq/L (8-16) POC BUN BUN 4 mg/dL L mg/dL (7-23) Creatinine 0.6 mg/dL mg/dL (0.6-1.0) POC Creatinine Estimated GFR > 60 Glucose 215 mg/dL H mg/dL (70-100) POC Glucose Calcium 8.0 mg/dL L mg/dL (8.5-10.4) Phosphorus 5.1 mg/dL H mg/dL (2.5-4.5) Magnesium 2.9 mg/dL H mg/dL (1.6-2.3) Total Bilirubin 2.2 mg/dL H mg/dL (0.1-1.4) Conjugated Bilirubin 0.9 mg/dL H mg/dL (0.0-0.5) Unconjugated Bilirubin 1.3 mg/dL H mg/dL (0.0-1.1) AST 80 IU/L H IU/L (14-46) ALT 36 IU/L IU/L (9-52) Alkaline Phosphatase 227 IU/L H IU/L (38-126) Total Protein 5.3 g/dL L g/dL (6.3-8.2) Albumin 2.8 g/dL L g/dL (3.5-5.0) Lipase 109 IU/L IU/L (23-300) 05/30/17 22:25 WBC RBC Hgb POC Hgb 15.6 gm/dL gm/dL (12.6-16.3) Hct POC Hct 46 % % (38-47) MCV MCH MCHC RDW Plt Count MPV Neut % (Auto) Lymph % (Auto) [place] % (Auto) Eos % (Auto) Baso % (Auto) Nucleat RBC Rel Count Absolute Neuts (auto) Absolute Lymphs (auto) Absolute Monos (auto) Absolute Eos (auto) Absolute Basos (auto) Absolute Nucleated RBC Immature Gran % Immature Gran # Platelet Estimate PT INR APTT POC Sodium 138 mEq/L mEq/L (135-145) Sodium POC Potassium 3.8 mEq/L mEq/L (3.3-5.0) Potassium POC Chloride 100 mEq/L mEq/L (97-110) Chloride Carbon Dioxide Anion Gap POC BUN 3 mg/dL L mg/dL (7-23) BUN Creatinine POC Creatinine 0.5 mg/dL L mg/dL (0.6-1.0) Estimated GFR Glucose POC Glucose 146 mg/dL H mg/dL (70-100) Calcium Phosphorus Magnesium Total Bilirubin Conjugated Bilirubin Unconjugated Bilirubin AST ALT Alkaline Phosphatase Total Protein Albumin Lipase Medications Given: Amiodarone HCl (Amiodarone Hcl) 200 mls @ 0 mls/hr IV CONT ZHANE PRN Reason: Titrate Stop: 11/26/17 22:59 Last Admin: 05/30/17 23:11 Dose: 200 mls Magnesium Sulfate (Magnesium Sulf 2 Gm (Premix)) 50 mls @ 50 mls/hr IV EDNOW ONE Stop: 05/30/17 23:25 Last Admin: 05/30/17 22:26 Dose: 50 mls Discontinued Medications Amiodarone HCl (Amiodarone Hcl) 150 mg IV EDNOW ONE Stop: 05/30/17 22:45 Last Admin: 05/30/17 22:44 Dose: 150 mg Epinephrine HCl (Epinephrine) 1 mg IVP EDNOW ONE Stop: 05/30/17 22:19 Last Admin: 05/30/17 22:22 Dose: 1 mg Epinephrine HCl (Epinephrine) 1 mg IVP EDNOW ONE Stop: 05/30/17 22:23 Last Admin: 05/30/17 22:22 Dose: 1 mg Sodium Chloride (Ns) 1,000 mls @ 0 mls/hr IV EDNOW ONE; Wide Open PRN Reason: Protocol Stop: 05/30/17 22:02 Last Admin: 05/30/17 22:18 Dose: 1,000 mls Sodium Chloride (Ns) 1,000 mls @ 0 mls/hr IV ONCE ONE PRN Reason: Wide Open Stop: 05/30/17 22:45 Last Admin: 05/30/17 23:15 Dose: 1,000 mls Norepinephrine/Sodium Chloride (Norepinephrine 8 Mcg/Ml (Premix)) 500 mls @ 0 mls/hr IV EDNOW ONE; Per Protocol PRN Reason: Protocol Stop: 05/30/17 22:57 Last Admin: 05/30/17 22:50 Dose: 500 mls Point of Care Test Results: 05/30/17 22:25 POC Sodium 138 POC Potassium 3.8 POC Chloride 100 POC BUN 3 L POC Creatinine 0.5 L POC Glucose 146 H General Time Seen by Provider: 05/30/17 21:54 Initial Vital Signs: Initial Vital Signs Temperature (C) 36.5 C 05/30/17 21:19 Heart Rate 95 05/30/17 21:19 Respiratory Rate 18 05/30/17 21:19 Blood Pressure 126/76 H 05/30/17 21:19 O2 Sat (%) 97 05/30/17 21:19 O2 Delivery Mode Ventilator Allergies/Adverse Reactions: Sulfa (Sulfonamide Antibiotics) Allergy (Mild, Verified 05/30/17 21:18) Rash Home Medications: Medication Instructions Recorded Ascorbic Acid [Vitamin C 500 mg 1,000 mg PO DAILY 03/27/17 (*)] Acetaminophen [Tylenol 325mg (*)] 650 mg PO Q4HRS PRN tab 05/08/17 Ferrous Sulfate [Slow Fe 140 MG 140 mg PO DAILY #30 tab.er 05/08/17 (*)] LORazepam [Ativan (*)] 0.5 mg PO Q4HRS PRN #10 tab 05/08/17 Levothyroxine [Synthroid 112 mcg 112 mcg PO DAILY #30 tab 05/08/17 (*)] Pantoprazole Sodium [Protonix 40mg 40 mg PO BID #60 tab 05/08/17 (*)] Sertraline HCl [Zoloft 100mg (*)] 100 mg PO DAILY #30 tab 05/08/17 Methocarbamol [Robaxin 500 mg (*)] 1,000 mg PO HS 05/13/17 Calcium Carb W/Vit D [Calcium Carb 500 mg PO BID 05/31/17 W/Vit D 500/200 (*)] Diltiazem Xr [Dilacor Xr] 240 mg PO DAILY 05/31/17 Gabapentin [Neurontin 100 MG (*)] 100 mg PO HS 05/31/17 Sucralfate [Carafate 1 GM (*)] 1 gm PO QID 05/31/17 traZODone [traZODONE 50MG (*)] 50 mg PO HS 05/31/17 Departure - Departure Disposition: [facility] Acute Clinical Impression: Cardiac arrest, Atrial fibrillation with RVR Vomiting Qualifiers: Vomiting type: unspecified Vomiting Intractability: intractable Nausea presence : with nausea Qualified Code(s): R11.2 - Nausea with vomiting, unspecified Condition: Critical Report Scribed for: Armaan Yap Report Scribed by: Michelle Irvin Date of Report: 05/30/17 Time of Report: 21:56 Physician Review and Approval Statement: Portions of this note were transcribed by an ED scribe. I personally performed the history, physical exam, and medical decision making; and confirm the accuracy of the information in the transcribed note.
[2017-05-30] MEDS ORDERED: EPINEPHrine 1 MG/10 ML SYR IVP ONE ×2 (22:18→22:22)
[2017-05-30] MEDS ORDERED: MAGNESIUM SULF 2 GM/WATER 50 ML BAG IV ONE (22:21)
[2017-05-30] MEDS ORDERED: PROTOCOL CALCIUM 1 DOSE MISC PRN (22:22)
[2017-05-30] MEDS ORDERED: PROTOCOL K PHOSPHATE 1 DOSE IV PRN (22:22)
[2017-05-30] MEDS ORDERED: MAGNESIUM SULF 2 GM/WATER 50 ML IV ONE (22:26)
[2017-05-30] MEDS: PROPOFOL/EMULSION 100 ML IV SCH (22:30)
[2017-05-30] MEDS ORDERED: AMIODARONE HCL 150 MG/3 ML VIAL IV ONE ×2 (22:44→22:54)
[2017-05-30 22:45] LABS: PLATELET COUNT 164 10^3/uL (150-400)
[2017-05-30] MEDS ORDERED: NOREPINEPHRINE/NS 4 MG/500 ML BAG IV ONE (22:50)
--- NOTE | 2017-05-30 22:51 | CPEKG ---
Heart Rate: 140 RR Interval: 429 QRSD Interval: 74 QT Interval: 244 QTC Interval: 373 QRS [place]: -37 T Wave [place]: 267 EKG Severity - ABNORMAL ECG - EKG Impression: ATRIAL FIBRILLATION, V-RATE 93-152 EKG Impression: VENTRICULAR PREMATURE COMPLEX EKG Impression: LOW VOLTAGE IN FRONTAL LEADS EKG Impression: REPOL ABNRM SUGGESTS ISCHEMIA, DIFFUSE LEADS EKG Impression: PRIOR ECG WITH NORMAL SINUS RHYTHM. ST/T WAVE CHANGES ARE NEW WELL Electronically Signed By: Nolan Sands 01-Jun-2017 12:53:45
[2017-05-30 22:54] LABS: INR 1.84 (0.83-1.16); PROTIME(PATIENT) 21.3 SEC (12.0-15.0)
[2017-05-30] MEDS ORDERED: AMIODARONE HCL 300 MG in D5W 100 ML IV ONE (22:54)
[2017-05-30] MEDS ORDERED: AMIODARONE HCL 100 ML IV ONE (22:54)
[2017-05-30] MEDS ORDERED: NOREPINEPHRINE/NS 500 ML IV ONE (22:56)
[2017-05-30] MEDS ORDERED: AMIODARONE HCL 200 ML IV SCH (23:00)
[2017-05-30] MEDS ORDERED: fentaNYL 100 MCG/2 ML INJ ONE (23:30)
[2017-05-30] MEDS ORDERED: fentaNYL 100 MCG/2 ML INJ IVP ONE (23:32)
[2017-05-31] MEDS ORDERED: VECURONIUM BROMIDE 10 MG VIAL IV ONE (00:18)
--- NOTE | 2017-05-31 00:31 | CPEKG ---
Heart Rate: 120 RR Interval: 500 P-R Interval: 144 QRSD Interval: 62 QT Interval: 332 QTC Interval: 470 P [place]: 257 QRS [place]: -8 T Wave [place]: 253 EKG Severity - ABNORMAL ECG - EKG Impression: ECTOPIC ATRIAL TACHYCARDIA EKG Impression: LOW VOLTAGE THROUGHOUT EKG Impression: BORDERLINE R WAVE PROGRESSION, ANTERIOR LEADS EKG Impression: NONSPECIFIC T ABNORMALITIES, DIFFUSE LEADS Electronically Signed By: Joe Richards 31-May-2017 13:09:53
[2017-05-31] MEDS ORDERED: MAGNESIUM SULFATE 1 GM/2 ML VIAL ONE (00:50)
[2017-05-31] MEDS ORDERED: EPINEPHrine 1 MG/10 ML SYR IVP ONE (00:50)
[2017-05-31] MEDS ORDERED: AMIODARONE HCL 150 MG/3 ML VIAL ONE (00:50)
[2017-05-31] MEDS ORDERED: fentanYL/NACL/100 ML BAG IV ONE (01:09)
[2017-05-31] MEDS: PROPOFOL/EMULSION 100 ML IV SCH ×3 (01:10→21:18)
[2017-05-31] MEDS ORDERED: PROTOCOL POTASSIUM 1 DOSE MISC PRN ×2 (01:21→01:58)
[2017-05-31] MEDS ORDERED: PROTOCOL MAGNESIUM 1 DOSE IV PRN ×2 (01:21→01:58)
[2017-05-31] MEDS: fentaNYL/NACL 100 ML IV SCH ×2 (01:44→08:25)
--- NOTE | 2017-05-31 02:20 | PDGENHP ---
History and Physical - Chief Complaint Nausea, vomiting - History of Present Illness 61 yo F w/ hx of ETOH abuse and AF initially presented to ED complaining of persistent vomiting. Shortly after arrival patient was noted to start coughing and gasping followed by unresponsiveness and apnea. Agonal respirations and pulselessness noted at this point. CPR was started, noted to be in asystole. CPR was resumed then V-fib was noted on monitor with possible Torsades. Shock was administered along w/ 2 mg of Mg IV. Patient exhibited ROSC and noted to be in AF. She was intubated and cooled per HACA protocol. At the time of my evaluation patient was intubated and sedated with no family at bedside to provide additional HPI. History Information - Allergies/Home Medication List Allergies/Adverse Reactions: Sulfa (Sulfonamide Antibiotics) Allergy (Mild, Verified 05/30/17 21:18) Rash Home Medications: Ascorbic Acid [Vitamin C 500 mg (*)] 1,000 mg PO DAILY 03/27/17 [Last Taken 08:00] Calcium Carbonate [Oyster Shell Calcium 500 mg (*)] 500 mg PO BID 03/27/17 [ Last Taken 05/12/17 22:00] Herbals/Supplements -Info Only 1 ea PO DAILY 05/13/17 [Last Taken Unknown] Methocarbamol [Robaxin 500 mg (*)] 500 mg PO HS 05/13/17 [Last Taken 05/12/17 22 :00] I have personally reviewed and updated: family history, medical history - Past Medical History Additional medical history: atrial fibrillation. etoh dependence with history of pancreatitis, withdrawal seizures. C diff 12/2015. anemia, coagulopathy. degenerative disk disease. scoliosis. chronic back pain. hypothyroidism. depression - Surgical History Additional surgical history: ORIF tib-fib 03/26/17. T/A - Family History Additional family history: father age 42 due to accident. mother age 50s due to esophageal ca - Social History Smoking Status: Never smoked Additional social history: Patient lives alone. COR - FULL. desires Renay Carbone (sister) to act as proxy if needed. Review of Systems Review of Systems: Unable to obtain due to mental status Physical Exam Physical Exam: Temp Pulse Resp BP Pulse Ox 33.0 C L 83 18 135/90 H 96 05/31/17 02:00 05/31/17 02:00 05/31/17 02:00 05/31/17 02:00 05/31/17 02:00 FIO2 (%) 80 Constitutional: other (Intubated, sedated) Eyes: PERRL, anicteric sclera Ears, Nose, Mouth, Throat: moist mucous membranes, no oral mucosal ulcers Cardiovascular: irregularly irregular, tachycardia Respiratory: inspiratory crackles, rhonchi Gastrointestinal: normoactive bowel sounds, soft, non-tender abdomen Skin: warm, no rashes or abrasions Neurologic: other (Intubated sedated) Lab Data & Imaging Review 05/30/17 22:35 05/31/17 01:30 WBC 22.54 10^3/uL (3.80-9.50) H 05/30/17 22:35 RBC 4.20 10^6/uL (4.18-5.33) 05/30/17 22:35 Hgb 13.7 g/dL (12.6-16.3) 05/30/17 22:35 POC Hgb 15.6 gm/dL (12.6-16.3) 05/30/17 22:25 Hct 41.2 % (38.0-47.0) 05/30/17 22:35 POC Hct 46 % (38-47) 05/30/17 22:25 MCV 98.1 fL (81.5-99.8) 05/30/17 22:35 MCH 32.6 pg (27.9-34.1) 05/30/17 22:35 MCHC 33.3 g/dL (32.4-36.7) 05/30/17 22:35 RDW 16.0 % (11.5-15.2) H 05/30/17 22:35 Plt Count 164 10^3/uL (150-400) 05/30/17 22:35 MPV 10.5 fL (8.7-11.7) 05/30/17 22:35 Neut % (Auto) Not Reported 05/30/17 22:35 Lymph % (Auto) Not Reported 05/30/17 22:35 Stanly % (Auto) Not Reported 05/30/17 22:35 Eos % (Auto) Not Reported 05/30/17 22:35 Baso % (Auto) Not Reported 05/30/17 22:35 Nucleat RBC Rel Count 0.2 % (0.0-0.2) 05/30/17 22:35 Absolute Neuts (auto) Not Reported 05/30/17 22:35 Absolute Lymphs (auto) Not Reported 05/30/17 22:35 Absolute Monos (auto) Not Reported 05/30/17 22:35 Absolute Eos (auto) Not Reported 05/30/17 22:35 Absolute Basos (auto) Not Reported 05/30/17 22:35 Absolute Nucleated RBC 0.05 10^3/uL (0-0.01) H 05/30/17 22:35 Immature Gran % Not Reported 05/30/17 22:35 Seg Neutrophils % 59 % 05/30/17 22:35 Band Neutrophils % 8 % 05/30/17 22:35 Lymphocytes % 31 % 05/30/17 22:35 Monocytes % 1 % 05/30/17 22:35 Basophils % 1 % 05/30/17 22:35 Immature Gran # Not Reported 05/30/17 22:35 Absolute Seg Neuts 13.30 10^/uL (1.70-6.50) H 05/30/17 22:35 Absolute Band Neuts 1.80 10^3/uL (0.00-0.70) H 05/30/17 22:35 Absolute Lymphocytes 6.99 10^3/uL (1.00-3.00) H 05/30/17 22:35 Absolute Monocytes 0.23 10^3/uL (0.30-0.80) L 05/30/17 22:35 Absolute Basophils 0.23 10^3/uL (0.02-0.10) H 05/30/17 22:35 RBC/WBC/PLT Morphology NORMAL (NORMAL) 05/30/17 22:35 Platelet Estimate ADEQUATE (ADEQ) 05/30/17 22:35 PT 21.3 SEC (12.0-15.0) H 05/30/17 22:35 INR 1.84 (0.83-1.16) H 05/30/17 22:35 APTT 59.2 SEC (23.0-38.0) H 05/30/17 22:35 Puncture Site NONE GIVEN 05/31/17 01:54 Patient Temperature 37.0 DEGREES 05/31/17 01:54 pCO2 38 mmHg (34-38) 05/31/17 01:54 pO2 84 mmHg (65-75) H 05/31/17 01:54 Total CO2 18 mEq/L (23-27) L 05/31/17 01:54 ABG pH 7.27 (7.35-7.45) L 05/31/17 01:54 ABG PO2/FiO2 Ratio 88 RATIO 05/30/17 23:03 ABG HCO3 17 mEq/L (22-26) L 05/31/17 01:54 ABG O2 Saturation 92 % (92-95) 05/31/17 01:54 ABG Base Excess -9.0 mEq/L (-2.5-2.5) L 05/31/17 01:54 ABG Lactic Acid 4.2 mmol/L (0.5-1.6) H 05/31/17 01:54 O2 Concentration % 100 % (0-100) 05/30/17 23:03 Set Respiration Rate 12 05/30/17 23:03 Assist Control YES 05/30/17 23:03 Tidal Volume 500 05/30/17 23:03 End Tidal CO2 37 05/30/17 23:03 PEEP 5 05/30/17 23:03 POC Sodium 138 mEq/L (135-145) 05/30/17 22:25 Sodium 135 mEq/L (135-145) 05/30/17 22:35 POC Potassium 3.8 mEq/L (3.3-5.0) 05/30/17 22:25 Potassium 2.8 mEq/L (3.5-5.2) L 05/31/17 01:30 POC Chloride 100 mEq/L (97-110) 05/30/17 22:25 Chloride 102 mEq/L (97-110) 05/30/17 22:35 Carbon Dioxide 15 mEq/l (22-31) L 05/30/17 22:35 Anion Gap 18 mEq/L (8-16) H 05/30/17 22:35 POC BUN 3 mg/dL (7-23) L 05/30/17 22:25 BUN 4 mg/dL (7-23) L 05/30/17 22:35 Creatinine 0.6 mg/dL (0.6-1.0) 05/30/17 22:35 POC Creatinine 0.5 mg/dL (0.6-1.0) L 05/30/17 22:25 Estimated GFR > 60 05/30/17 22:35 Glucose 212 mg/dL (70-100) H 05/31/17 01:30 POC Glucose 146 mg/dL (70-100) H 05/30/17 22:25 Calcium 8.0 mg/dL (8.5-10.4) L 05/30/17 22:35 Phosphorus 5.1 mg/dL (2.5-4.5) H 05/30/17 22:35 Magnesium 1.7 mg/dL (1.6-2.3) 05/31/17 01:30 Total Bilirubin 2.2 mg/dL (0.1-1.4) H 05/30/17 22:35 Conjugated Bilirubin 0.9 mg/dL (0.0-0.5) H 05/30/17 22:35 Unconjugated Bilirubin 1.3 mg/dL (0.0-1.1) H 05/30/17 22:35 AST 80 IU/L (14-46) H 05/30/17 22:35 ALT 36 IU/L (9-52) 05/30/17 22:35 Alkaline Phosphatase 227 IU/L (38-126) H 05/30/17 22:35 Troponin I 0.131 ng/mL (0.000-0.034) H 05/30/17 23:27 Total Protein 5.3 g/dL (6.3-8.2) L 05/30/17 22:35 Albumin 2.8 g/dL (3.5-5.0) L 05/30/17 22:35 Lipase 109 IU/L (23-300) 05/30/17 22:35 Urine Color LUIS FELIPE 05/30/17 23:28 Urine Appearance HAZY 05/30/17 23:28 Urine pH 8.0 (5.0-7.5) H 05/30/17 23:28 Ur Specific [place] 1.023 (1.002-1.030) 05/30/17 23:28 Urine Protein 2+ (NEGATIVE) H 05/30/17 23:28 Urine Ketones 1+ (NEGATIVE) H 05/30/17 23:28 Urine Blood 2+ (NEGATIVE) H 05/30/17 23:28 Urine Nitrate NEGATIVE (NEGATIVE) 05/30/17 23:28 Urine Bilirubin POSITIVE (NEGATIVE) H 05/30/17 23:28 Urine Urobilinogen 2.0 EU (0.2-1.0) H 05/30/17 23:28 Ur Leukocyte Esterase NEGATIVE (NEGATIVE) 05/30/17 23:28 Urine RBC 25-50 /hpf (0-3) H 05/30/17 23:28 Urine WBC 5-10 /hpf (0-3) H 05/30/17 23:28 Ur Epithelial Cells TRACE /lpf (NONE-1+) 05/30/17 23:28 Urine Bacteria TRACE /hpf (NONE SEEN) H 05/30/17 23:28 Hyaline Casts 5-15 /lpf (0-1) 05/30/17 23:28 Urine Mucus 4+ /lpf (NONE-1+) H 05/30/17 23:28 Urine Glucose NEGATIVE (NEGATIVE) 05/30/17 23:28 Ethyl Alcohol < 10 mg/dL (0-10) 05/30/17 22:35 Imaging Review: Imaging Impressions Chest X-Ray 05/30/17 22:19 Impression: 1. Satisfactory position of endotracheal tube. 2. Diffuse bilateral alveolar opacities, left greater than right. Chest X-Ray 05/30/17 23:04 Impression: Placement of nasogastric tube and central venous catheter from an inferior approach. Visualized and Interpreted EKG results: Yes EKG Interpretation: Positive for: other (AF w/ RVR) Assessment & Plan Assessment: 61 yo F w/ hx of ETOH abuse and AF initially presented to ED complaining of persistent vomiting and then experienced witnessed cardiac arrest of unclear etiology in the ED. Plan: 1. Cardiac arrest - Witnessed in ED after episode of coughing in the setting of persistent vomiting. Rhythm initially asystole followed by V-fib that responded to cardioversion x2 as well as magnesium. Etiology is unclear; considerations include aspiration->hypoxia, acidosis, ID, PE, primary ventricular arrhythmia and hypokalemia. Bedside echo not c/w tamponade and CXR w/o tension pneumo. - Cooling protocol initiated - Trend cardiac enzymes, I expect modest elevation from CPR - Electrolyte replacement protocols ordered - Amio gtt to prevent recurrent ventricular arrhythmia - Cardiology consulted, appreciate assistance 2. Suspected alcoholic hepatitis - Known long hx of ETOH abuse with [facility]. DF 36 so she may benefit from steroids. Would defer this until after acute setting noting uncertainty surrounding etiology of arrest. - Will get RUQ U/S w/ doppler for further evaluation 3. Nausea, vomiting - This was presenting symptom, may be due to alc hep but unclear. She has a reassuring abdominal exam. RUQ U/S. 4. AF w RVR - Rhythm noted after ROSC. On amiodarone gtt, which should help rate. 5. Elevated troponin - 0.1 on post arrest labs, which is likely solar manufacturer's representative of CPR. Will trend. 6. Leukocytosis - WBC 22 on post-arrest labs; likely reactive but low threshold to start antibiotics. 7. Bilateral infiltrates - After CPR, monitor for signs of infection. Diet - NPO Code - Full Ppx - SCDs, PPI IV Dispo - Admit to ICU under inpatient status I personally spent 60 minutes of critical care time evaluating patient, interpreting test results, and coordinating care.
[2017-05-31] MEDS: 1/2 NS 1,000 ML IV SCH ×2 (02:35→20:25)
[2017-05-31] MEDS ORDERED: D5W 1,000 ML IV SCH (03:00)
[2017-05-31] MEDS ORDERED: D50W 25 GM/50 ML SYR IVP PRN (03:00)
[2017-05-31] MEDS ORDERED: INSULIN REGULAR HUMAN 100 UNIT in NS 100 ML IV SCH (03:00)
[2017-05-31] MEDS ORDERED: MAGNESIUM SULF 1 GM/DEXTROSE 100 ML IV ONE (03:00)
[2017-05-31] MEDS: POTASSIUM Cl (KCl) 50 ML IV SCH ×2 (03:17→05:22)
[2017-05-31] MEDS ORDERED: AMIODARONE A.FIB-18HR INFSN (ORDER 3/3) IV ONE (05:00)
[2017-05-31 06:02] LABS: PLATELET COUNT 171 10^3/uL (150-400)
[2017-05-31 06:34] LABS: INR 1.78 (0.83-1.16); PROTIME(PATIENT) 20.8 SEC (12.0-15.0)
[2017-05-31] MEDS: NOREPINEPHRINE/NS 500 ML IV SCH ×2 (07:04→08:25)
[2017-05-31] MEDS: PANTOPRAZOLE SODIUM 40 MG VIAL IVP SCH (11:11)
--- NOTE | 2017-05-31 11:23 | PDMN ---
Medical Necessity Medical necessity: est los>2mn for witnessed cardiac arrest in ED, presenting for persistent vomiting; asystole followed by V fib responding to cardioversion and Mg, of unclear etiology ;consider aspiration/hypoxia, acidosis, AK, PE, primary ventricular arrhythmia and hypokalemia; afib noted after ROSC, elevated troponin, suspected etoh hepatitis; admit to ICU for HACA, intubation/sedation, and amio gtt; comorbid etoh abuse, w/hx pancreatitis, withdrawal sz's, anemia, and coagulopathy; per order and H&P 05/30/17
--- NOTE | 2017-05-31 12:26 | ASMTCMCOM ---
CM Note CM Note Notes: Patient presented to the ED (has upwards of 30 visits in the last year) for persistent vomiting following binge drinking. She went into cardiac arrest during a coughing spell. CPR was initiated, she was intubated, and the HACA protocol was initiated. She is currently intubated and sedated in the ICU. I called and left a message for her sister (friend?) Renay. Discharge needs are unknown. Date Signed: 05/31/2017 12:25 PM Electronically Signed By:Jackie Magana RN
[2017-05-31] MEDS: ERTAPENEM 1 GM VIAL IV SCH (13:43)
--- NOTE | 2017-05-31 14:27 | GCON ---
[f rep st] CONSULTATION PULMONARY/CRITICAL CARE CONSULTATION DATE OF CONSULTATION: 05/31/2017 REFERRING PHYSICIAN: Juan Carlos Pisano MD REASON FOR REFERRAL: Evaluation and management of respiratory failure, status post cardiopulmonary a rrest and HACA protocol. HISTORY: The patient is a 61-year-old woman with a history of EtOH abuse with frequent ER visits as well as atrial fibrillation, presented to the emergency department last night with vomiting. Shortly after arrival, she started to cough and then had an episode of unresponsiveness and apnea. She was found to be pulseless and in asystole. She got CPR and epinephrine, and then was found to have VFib which was then shocked. There was a concern about possible torsades, so magnesium was given. She [place] d AFib and then had return to a spontaneous circulation with sinus rhythm. She was intubated and clinical education coordinator led per the HACA protocol. She was transferred to the intensive care unit. She has had an unremarka ble course since being transferred to the ICU. PAST MEDICAL HISTORY: 1. Alcoholism with multiple episodes of pancreatitis. She has also had withdrawal seizures. 2. History of atrial fibrillation. 3. Degenerative joint disease. 4. Chronic back pain. MEDICATIONS: At the time of admission included vitamin C, Robaxin. ALLERGIES: Sulfa. SOCIAL HISTORY: The patient has never smoked. She has a heavy history of alcohol use. REVIEW OF SYSTEMS: Unobtainable. PHYSICAL EXAMINATION: GENERAL: The patient is intubated, sedated, and paralyzed on the HACA protoco l. VITAL SIGNS: Her blood pressure is 124/87, with a heart rate of 62. Her temperature is 33.4. O xygen saturations are 98% on 60% oxygen. HEENT: Normocephalic and atraumatic. No icterus. NECK: No adenopathy. Trachea is midline. CHEST: Clear to auscultation. CARDIAC: Regular rate and rhyth m without murmur. ABDOMEN: Soft. Bowel sounds are present. No masses or hepatosplenomegaly. EXTR EMITIES: No clubbing, cyanosis, or edema. NEURO: The patient is intubated and sedated/paralyzed. LABORATORIES: An arterial blood gas shows a pH of 7.35, with a pO2 of 72, a CO2 of 32, and bicarbona te of 17, on AC with a rate of 24, tidal volume of 500 and 60% oxygen. Chemistry group is remarkable only for a glucose of 198. CBC shows a white blood count of 34.0 with 10% bands, hemoglobin 14.2, a nd a platelet count of 171. INR is 1.8. Troponin is 0.59. Procalcitonin is 3.2. Alcohol level is less than 10. Urine benzodiazepine screen is positive. A chest x-ray shows alveolar infiltrates in the left greater than right mid upper lung bartholomew with ai r bronchograms. Images reviewed by me. ASSESSMENT: 1. Witnessed asystolic arrest followed by ventricular tachycardia. The patient's cardiac status has stabilized since her initial resuscitation. It appears the patient had a primary respiratory issue that preceded this, although a primary cardiac cause has not been fully excluded. 2. Respiratory arrest with pulmonary infiltrates. This is concerning for aspiration. The patient a lso has an elevated procalcitonin and white blood count, could suggest infectious cause for her respi ratory symptoms/findings. 3. History of alcohol abuse. The patient did not have an elevated alcohol level at presentation. S he is at risk for withdrawals, and she has had seizures in the past. Her recent alcohol intake is un known. Her current regimen for the Hypothermia After Cardiac Arrest protocol is appropriate if she w ere to have alcohol withdrawal. 4. Hypothermia After Cardiac Arrest protocol. The goals of this have been met. RECOMMENDATIONS: 1. Start Invanz. 2. Check respiratory panel, particularly looking for influenza as the cause of her pulmonary infiltr ates and symptoms. 3. Cardiology consult by Dr. Tinajero. 4. Start to wean off the cooling process and paralytics overnight, hopefully followed by extubation tomorrow depending on her respiratory status. /[id number]/MODL
--- NOTE | 2017-05-31 14:50 | HOSPPROG ---
Hospitalist Progress Note Assessment/Plan: * witnessed cardiac arrest after vomiting and choking * Most likely initiating causes respiratory rather than cardiac * Getting HACA protocol currently * Cardiology following * Trending troponins * acute respiratory failure * bilateral pneumonia * Markedly elevated procalcitonin * Invanz started * history of alcoholism * history of atrial fibrillation * Not currently on anticoagulation * coagulopathy * DVT prophylaxis * Lovenox Subjective: No events Objective: Vital Signs Temp Pulse Resp BP Pulse Ox 33.4 C L 68 24 H 98/67 L 94 05/31/17 14:00 05/31/17 14:00 05/31/17 14:00 05/31/17 14:00 05/31/17 14:00 Laboratory Results 05/31/17 05:40 05/31/17 11:30 05/30/17 05/31/17 06/01/17 05:59 05:59 05:59 Intake Total 2090.1 Output Total 148 Balance 1942.1 PT 20.8 SEC (12.0-15.0) H 05/31/17 05:40 INR 1.78 (0.83-1.16) H 05/31/17 05:40 - Physical Exam Constitutional: no apparent distress, appears nourished, not in pain Cardiovascular: regular rate and rhythym, no murmur, rub, or gallop Respiratory: no respiratory distress, no rales or rhonchi Gastrointestinal: normoactive bowel sounds, soft, non-tender abdomen, no palpable masses Skin: warm Neurologic: other (Sedated) ICD10 Worksheet Patient Problems: Problems Problem Status Onset Atrial fibrillation with RVR Acute Cardiac arrest Acute Vomiting Acute Abdominal pain Acute Alcohol abuse Acute Alcohol intoxication Acute Alcohol withdrawal Acute Alcohol withdrawal Acute Ankle fracture Acute Atrial fibrillation Acute C. difficile diarrhea Acute 09/23/16 GI bleed Acute Nausea & vomiting Acute Nausea and vomiting in adult Acute
[2017-05-31] MEDS: VECURONIUM BROMIDE 50 MG in D5W 50 ML IV SCH ×2 (15:24→20:40)
--- NOTE | 2017-05-31 15:39 | ECHO ---
[email or web address] [address] Main: [phone] Fax: Transthoracic Echocardiogram Name: SAIRA RAHMAN MR#: [id number] Study Date: 05/31/2017 Study Time: 12:59 PM Date of : 1955 Age: 61 year(s) Height: 165.1 cm (65 in.) Weight: 69.4 kg (153 lb.) BSA: 1.77 m2 Gender: Female Examination: Echo Indication: HACA, Intubated, Eval LV Fx Image Quality: Contrast: Requested by: Juan Carlos Childress BP: 90 mmHg/66 mmHg Heart Rate: Rhythm: Indication: HACA, Intubated, Eval LV Fx Procedure Staff Records Management Analyst: Bart Mendoza RDCS Reading Physician: Nolan Tinajero Requesting Provider: Conclusions: Normal size left ventricle. Normal global systolic LV function. The mitral valve is normal in appearance and function. The aortic valve is normal in appearance and function. The pulmonary artery pressure estimate is 43 mmHg No old studies for comparison Measurements: Chambers Valvular Assessment AV/MV Valvular Assessment TV/PV Normal Normal Normal Name Value Range Name Value Range Name Value Range Ao Aiyana (MM): 2.5 cm (2.2 cm-3.7 AV Vmax: 0.85 m/s (1 m/s-1.7 TR Vmax: 3.09 mm/s ( - ) cm) m/s) TR PGmax: 38 mmHg ( - ) IVSd (2D): 0.8 cm (0.6 cm-1.1 AV maxP mmHg ( - ) syst. PAP: 43 mmHg ( - ) cm) LVOT Vmax: 0.63 m/s (0.7 m/s-1.1 PV Vmax: 0.79 m/s (0.6 m/s-0.9 LVDd (2D): 4.3 cm (3.9 cm-5.3 m/s) m/s) cm) MV E Vmax: 0.46 m/s ( - ) PV PGmax: 2 mmHg ( - ) LVDs (2D): 2.4 cm (2.1 cm-4 MV A Vmax: 0.51 m/s ( - ) cm) MV E/A: 0.90 ( - ) LVPWd (2D): 0.9 cm ( - ) LVEF (2D): 75 (>=54 %) Visual EF: 55 % Continued Measurements: Chambers Valvular Assessment AV/MV Valvular Assessment TV/PV Name Value Name Value Name Value LADs Lon.5 cm MV E/E' Septal: 11.70 CVP (est.): 5 mmHg LA Area: 17.4 cm2 MV E/E' Lateral: 5.90 LA Volume: 46 ml Patient: SAIRA RAHMAN Study Date: 05/31/2017 Page 1 of 2 12:59 PM LA Volume Index: 26.0 ml/m2 Findings: Left Ventricle: Normal size left ventricle. No LV hypertrophy. Normal global systolic LV function. The ejection fraction is visually estimated to be 55 %. No regional wall motion abnormality. Diastolic dysfunction is present. . Right Ventricle: Normal size right ventricle. Normal RV function. Left Atrium: The left atrium is normal in size. Right Atrium: The right atrium is normal in size. Mitral Valve: The mitral valve is normal in appearance and function. Aortic Valve: The aortic valve is normal in appearance and function. The aortic valve is tri-leaflet. Tricuspid Valve: Trivial to mild tricuspid valve regurgitation. Pulmonic Valve: The pulmonic valve is normal in appearance and function. Aorta: The aorta is normal. Pericardium: No pericardial effusion. (No Signature Object) Patient: SAIRA RAHMAN Study Date: 05/31/2017 Page 2 of 2 12:59 PM [id number]
[2017-05-31] MEDS ORDERED: POTASSIUM Cl (KCl) 50 ML IV ONE (19:22)
[2017-05-31 20:19] LABS: PLATELET COUNT 118 10^3/uL (150-400)
[2017-05-31] MEDS: NOREPINEPHRINE 4MG/NS 500 ML IV PRN (21:08)
--- NOTE | 2017-05-31 21:34 | GCON ---
[f rep st] CONSULTATION DATE OF CONSULTATION: 05/31/2017 CHIEF COMPLAINT: We have been asked by Dr. Rome to evaluate this patient with an asystolic arrest. HISTORY OF PRESENT ILLNESS: The patient is a 61-year-old female with history of alcohol use/abuse an d paroxysmal atrial fibrillation who presented to the emergency department on 05/30/2017 with complai nts of persistent nausea and vomiting. Shortly after arrival in the emergency department, the patien t was coughing and then was noted to be gasping for air. She became unresponsive and was found to [place] ve asystolic cardiac arrest. The patient was treated with epinephrine, CPR, and intubation with a benjamin bsequent rhythm demonstrating ventricular fibrillation. Patient was treated with defibrillation and returned with atrial fibrillation and rapid ventricular response. Patient was subsequently started o n amiodarone and returned to a normal sinus rhythm with a normal pulse. HACA protocol was initiated and we have been consulted to help in the further management of this patient. The patient's initial laboratory work demonstrated an acidosis with a bicarbonate of 15, hypokalemia with a potassium of 3. 4, hyperglycemia with a glucose of 215. Patient's initial chest x-ray demonstrated bilateral alveola r opacities, left greater than right. Bedside echocardiogram demonstrated no evidence of tamponade. Patient has no history of coronary artery disease. She does have a history of paroxysmal atrial fib rillation associated with alcohol use/abuse. No documented complaints of chest pain or palpitations with this admission. PAST MEDICAL HISTORY: 1. Alcohol use/abuse. 2. History of pancreatitis. 3. History withdrawal seizures. 4. Hepatopathy with coagulopathy. 5. Chronic back pain. 6. Depression. 7. Paroxysmal atrial fibrillation. MEDICATIONS: Please see medicine reconciliation form. ALLERGIES: Sulfa. SOCIAL HISTORY: This could not be adequately obtained as patient is intubated and sedate. FAMILY HISTORY: This could not be obtained as patient is intubated and sedate. REVIEW OF SYSTEMS: This could not be obtained as patient is intubated and sedate. PHYSICAL EXAMINATION: GENERAL: The patient is resting in bed. She is intubated and responsive to p ainful stimuli. VITAL SIGNS: Temperature is 33.4, pulse is 68, blood pressure 98/67, respiratory ra te is 24, SaO2 is 94% on ventilator. HEENT: Normocephalic, atraumatic. NECK: No JVD. LUNGS: Coa rse bronchial breath sounds bilaterally. No crackles auscultated. CARDIOVASCULAR: Regular rate and rhythm. No murmurs, rubs, or gallops appreciated. ABDOMEN: Soft, nontender. Normoactive bowel so unds. EXTREMITIES: No clubbing, cyanosis, or edema. NEURO: Patient is intubated and sedate. LABORATORY: White blood cell count is 34, hemoglobin 14.2, hematocrit 43.1. Platelet count is 171. Sodium 135, potassium 3.4, chloride 102, bicarbonate 15, BUN 4, creatinine 0.6. AST is elevated at 80. ALT is normal at 36. Troponin increased from 0.131 to 0.59. INR is 1.78. Patient is not on Co umadin. Toxicology is notable for benzodiazepines. ASSESSMENT AND PLAN: Patient is a 61-year-old female with: 1. Asystolic arrest. Patient presented to the emergency department with symptoms of nausea and vomi ting. She was witnessed to be coughing and gasping for air followed by the development of asystolic arrest. Initial laboratory is notable for an acidosis with a bicarbonate of 15, mildly reduced potas sium of 3.4, elevated glucose of 215. Chest x-ray demonstrated bilateral alveolar infiltrates with n o evidence of tension pneumothorax. Echocardiogram demonstrated no evidence of tamponade physiology. Patient was started on a HACA protocol and is anticipating rewarming at 11 o'clock this evening. S uspect the primary event leading to her asystolic arrest is respiratory in nature, likely secondary t o aspiration. Ischemia is difficult to exclude given her mildly elevated troponin of 0.13 going to 0 .59. However, echocardiogram demonstrates normal left ventricular size and systolic function making this less likely. At this time, would complete the HACA protocol. Once patient is adequately rewarm ed would re-evaluate and consider angiography for further risk stratification. 2. Elevated troponin. Patient has a mildly elevated troponin of 0.13 going to 0.59. This occurred in the setting of CPR and defibrillation her echocardiogram demonstrates normal left ventricular size and systolic function. Do not suspect primary ischemic component in this situation. Will continue to follow. 3. Atrial fibrillation. Patient has a history of paroxysmal atrial fibrillation in the setting of a lcohol use/abuse. Patient's initial rhythm after defibrillation was atrial fibrillation. She has benjamin bsequently converted to normal sinus rhythm at this time. Would plan on continuing amiodarone IV at this point to prevent subsequent episodes of atrial fibrillation. /[id number]/MODL
[2017-05-31] MEDS: AMIODARONE HCL 200 ML IV SCH (21:49)
[2017-05-31] MEDS ORDERED: RN MUST ADD CA+ & PHOS PROTOCOL TO WORKLIST AT 36 C MISC SCH (22:22)
[2017-05-31] MEDS ORDERED: RN MUST REMOVE K+ & MG+ PROTOCOL FROM WORKLIST AT 36 C MISC SCH (22:22)
[2017-06-01 00:27] LABS: INR 1.38 (0.83-1.16); PROTIME(PATIENT) 17.1 SEC (12.0-15.0)
[2017-06-01] MEDS: NOREPINEPHRINE 4MG/NS 500 ML IV PRN ×5 (03:49→20:17)
[2017-06-01] MEDS: PROPOFOL/EMULSION 100 ML IV SCH ×2 (04:33→16:44)
[2017-06-01] MEDS: fentaNYL/NACL 100 ML IV SCH (07:25)
[2017-06-01 08:05] LABS: PLATELET COUNT 91 10^3/uL (150-400)
[2017-06-01 08:18] LABS: INR 1.28 (0.83-1.16); PROTIME(PATIENT) 16.2 SEC (12.0-15.0)
[2017-06-01] MEDS: PANTOPRAZOLE SODIUM 40 MG VIAL IVP SCH (08:18)
--- NOTE | 2017-06-01 09:00 | ASMTCMCOM ---
CM Note CM Note Notes: Patient's friend (not her sister) Renay called yesterday. She was about to board a boat in [place] for a 2 week cruise. She made it clear that she is not patient's MDPOA or proxy. She also said she will be unable to be contacted by phone while on the cruise but would appreciate communication by email ([email or web address]). She said that patient does have an estranged daughter - Milton - for whom no one has contact information. Based on the above (and patient's extensive history of hospitalizations, readmissions, and failed discharge plans), I ordered an Ethics consult. Shivani Lance, director of Case Management, notified of patient's admission. CM will follow. Date Signed: 06/01/2017 08:59 AM Electronically Signed By:Jackie Magana RN
--- NOTE | 2017-06-01 09:42 | PDINTPN ---
Supply Teacher Progress Note Assessment/Plan: Assessment: S/P Witnessed asystolic->VF arrest in ER: On HACA protocol. Requiring High-dose NE to maintain MAP at lower limits of goal. Hypotension: Likely due to hypothermia and possible infection/sepsis. Limited ECHO yesterday showed good systolic function. Pneumonia, probable aspiration: Started Invanz. Requiring fairly high FIO2 (70% ) to maintain saturations. History of EtOH abuse: No EtOH on admission labs. Plan: Fluid bolus, then reassess MAP, pressor needs. Titrate NE as needed. Continue re-warming. Continue Invanz, follow CXR. 40 minutes CC Time managing pressor levels, addressing ventilator weaning, extubation. 06/01/17 09:43 06/01/17 09:45 Subjective: Intubated, paralyzed Objective: Vital Signs Temp Pulse Resp BP Pulse Ox 35.1 C L 88 16 104/73 93 06/01/17 09:00 06/01/17 09:00 06/01/17 09:00 06/01/17 09:00 06/01/17 09:00 Microbiology 05/31/17 17:55 Respiratory Panel (PCR) - Final Nasal, Sinus - Swab No Organism Detected Laboratory Results 06/01/17 07:50 06/01/17 07:50 05/31/17 06/01/17 06/02/17 05:59 05:59 05:59 Intake Total 2090.1 4076.3 Output Total 148 270 25 Balance 1942.1 3806.3 -25 PT 16.2 SEC (12.0-15.0) H 06/01/17 07:50 INR 1.28 (0.83-1.16) H 06/01/17 07:50 Laboratory Tests 06/01/17 06:30 pCO2 26 L pO2 75 Total CO2 18 L ABG pH 7.42 ABG HCO3 17 L O2 Concentration % 70 Respiration Rate 16 Tidal Volume 500 Physical Exam - Physical Exam General Appearance: unresponsive, No alert EENT: normal ENT inspection Neck: normal inspection Respiratory: lungs clear, normal breath sounds Cardiac/Chest: regular rate, rhythm, No edema Abdomen: normal bowel sounds, non-tender Skin: normal color Extremities: normal inspection Neuro/Psych: other (Sedated, paralyzed), No alert ICD10 Worksheet Patient Problems: Problems Problem Status Onset Atrial fibrillation with RVR Acute Cardiac arrest Acute Vomiting Acute Abdominal pain Acute Alcohol abuse Acute Alcohol intoxication Acute Alcohol withdrawal Acute Alcohol withdrawal Acute Ankle fracture Acute Atrial fibrillation Acute C. difficile diarrhea Acute 09/23/16 GI bleed Acute Nausea & vomiting Acute Nausea and vomiting in adult Acute
[2017-06-01] MEDS: ERTAPENEM 1 GM VIAL IV SCH (09:47)
[2017-06-01] MEDS ORDERED: NS 500 ML IV ONE (09:49)
[2017-06-01] MEDS: AMIODARONE HCL 200 ML IV SCH ×2 (11:26→23:26)
[2017-06-01] MEDS ORDERED: AMIODARONE HCL 540 MG in D5W 300 ML IV ONE (12:00)
--- NOTE | 2017-06-01 12:16 | SOAPPROG ---
SOAP Progress Note Assessment/Plan: 1. Asystolic arrest - likely secondary to hypoxia from aspiration pneumonia. Currently in the re-warming phase of HACA protocol. Consider angiogram for risk stratification when acute issues resolve 2. A-fib - Pt has a history of PAF in the setting of ETOH use/abuse. Pt went into A-fib with RVR on 06/01/17. She is currently on amiodarone gtt with elevated rates. She is unlikely to hold sinus rhythm with cardioversion until acute issues resolve. --> Transition from levophed to neosynephrine to avoid beta agonist --> Continue amiodarone gtt --> Consider digoxin .25 mg iv bid on day one and then 0.125 mg daily there after if rate remains elevated 3. Hypotension - Pt requires pressor support for hypotension. Echocardiogram with normal LVEF. Suspect secondary to sepsis. --> transition from levophed to neosynephrine 4. Pneumonia - Pt with L greater than R alveolar infiltrates. Suspect secondary to aspiration. --> Appreciate pulmonary input. Subjective: Pt intubated and sedate In rewarming phase of HACA protocol A-fib wiht RVR overnight despite prophylactic amiodarone IV Continues to require 70 FiO2 to maintain saturation Continues to require pressor support Objective: Vital Signs Temp Pulse Resp BP Pulse Ox 35.6 C L 138 H 16 99/64 L 98 06/01/17 12:00 06/01/17 12:00 06/01/17 12:00 06/01/17 12:00 06/01/17 12:00 Microbiology 05/31/17 17:55 Respiratory Panel (PCR) - Final Nasal, Sinus - Swab No Organism Detected Laboratory Results 06/01/17 07:50 06/01/17 07:50 05/31/17 06/01/17 06/02/17 05:59 05:59 05:59 Intake Total 2090.1 4076.3 500 Output Total 148 270 25 Balance 1942.1 3806.3 475 PT 16.2 SEC (12.0-15.0) H 06/01/17 07:50 INR 1.28 (0.83-1.16) H 06/01/17 07:50 Physical Exam - Physical Exam General Appearance: other (sedate) Respiratory: other (bronchial breath sounds) Cardiac/Chest: tachycardia, irregularly irregular Skin: mottled Extremities: pedal edema ICD10 Worksheet Patient Problems: Problems Problem Status Onset Atrial fibrillation with RVR Acute Cardiac arrest Acute Vomiting Acute Abdominal pain Acute Alcohol abuse Acute Alcohol intoxication Acute Alcohol withdrawal Acute Alcohol withdrawal Acute Ankle fracture Acute Atrial fibrillation Acute C. difficile diarrhea Acute 09/23/16 GI bleed Acute Nausea & vomiting Acute Nausea and vomiting in adult Acute
[2017-06-01] MEDS: PHENYLEPHRINE HCL 50 MG in D5W 250 ML IV SCH (12:46)
[2017-06-01] MEDS: 1/2 NS 1,000 ML IV SCH (12:58)
[2017-06-01] MEDS ORDERED: PHENYLEPHRINE HCL 50 MG in D5W 250 ML IV SCH (13:00)
--- NOTE | 2017-06-01 13:40 | HOSPPROG ---
Hospitalist Progress Note Assessment/Plan: 61 yo female with hx of alcoholism had witness cardiac arrest She has gone into Afib and BP has been soft Requiring high amount of Levophed * witnessed cardiac arrest after vomiting and choking * Most likely initiating causes respiratory rather than cardiac * HACA, rewarming * Cardiology following * Trending troponins * TTE with preserved LVEF * acute respiratory failure * bilateral pneumonia * Markedly elevated procalcitonin * cont Invanz * history of alcoholism * history of atrial fibrillation * Lovenox for AC * Amio * coagulopathy * DVT prophylaxis * Lovenox Plan: D/W Cards and Accounting Assistant Cont Amio Start Matt and attempt to wean off Levo Consider Digoxin Cont with maintenance fluid. She has required boluses. Will change to NS and increase to 75 Cont Invanz total CCT is 35 mins Subjective: has gone into afib. BP is down. Objective: Vital Signs Temp Pulse Resp BP Pulse Ox 35.9 C L 143 H 16 101/63 96 06/01/17 13:00 06/01/17 13:00 06/01/17 13:00 06/01/17 13:00 06/01/17 13:00 Microbiology 05/31/17 17:55 Respiratory Panel (PCR) - Final Nasal, Sinus - Swab No Organism Detected Laboratory Results 06/01/17 07:50 06/01/17 11:55 05/31/17 06/01/17 06/02/17 05:59 05:59 05:59 Intake Total 2090.1 4076.3 500 Output Total 148 270 25 Balance 1942.1 3806.3 475 PT 16.2 SEC (12.0-15.0) H 06/01/17 07:50 INR 1.28 (0.83-1.16) H 06/01/17 07:50 - Physical Exam Constitutional: no apparent distress Eyes: PERRL Ears, Nose, Mouth, Throat: moist mucous membranes Cardiovascular: regular rate and rhythym, edema (trace LE edema) Respiratory: reduced air movement Gastrointestinal: normoactive bowel sounds, No guarding, No distension Skin: warm Psychiatric: other (sedated) Lymph, Heme, Immunologic: No petechiae ICD10 Worksheet Patient Problems: Problems Problem Status Onset Atrial fibrillation with RVR Acute Cardiac arrest Acute Vomiting Acute Abdominal pain Acute Alcohol abuse Acute Alcohol intoxication Acute Alcohol withdrawal Acute Alcohol withdrawal Acute Ankle fracture Acute Atrial fibrillation Acute C. difficile diarrhea Acute 09/23/16 GI bleed Acute Nausea & vomiting Acute Nausea and vomiting in adult Acute
[2017-06-01] MEDS ORDERED: DIGOXIN 100 MCG/ML AMP *PEDIATRIC IVP ONE (14:48)
[2017-06-01] MEDS: NS 1,000 ML IV SCH (14:48)
[2017-06-01] MEDS: DIGOXIN 500 MCG/2 ML AMP IVP SCH (15:18)
[2017-06-01] MEDS ORDERED: PROTOCOL CALCIUM 1 DOSE IV PRN (16:58)
[2017-06-01] MEDS ORDERED: PROTOCOL K PHOSPHATE 1 DOSE IV PRN (16:58)
[2017-06-01 18:16] LABS: INR 1.21 (0.83-1.16); PROTIME(PATIENT) 15.5 SEC (12.0-15.0)
[2017-06-01] MEDS ORDERED: MAGNESIUM SULF 1 GM/DEXTROSE 100 ML IV ONE (18:17)
[2017-06-01] MEDS ORDERED: CALCIUM GLUCONATE 50 ML IV ONE (18:18)
[2017-06-02] MEDS: DIGOXIN 500 MCG/2 ML AMP IVP SCH (03:18)
[2017-06-02] MEDS: NS 1,000 ML IV SCH ×2 (05:18→22:31)
[2017-06-02 05:30] LABS: PLATELET COUNT 44 10^3/uL (150-400)
[2017-06-02] MEDS: NOREPINEPHRINE 4MG/NS 500 ML IV PRN (05:50)
[2017-06-02] MEDS: PHENYLEPHRINE HCL 50 MG in D5W 250 ML IV SCH (06:45)
[2017-06-02] MEDS ORDERED: MAGNESIUM SULF 1 GM/DEXTROSE 100 ML IV ONE (09:17)
[2017-06-02] MEDS: ERTAPENEM 1 GM VIAL IV SCH (09:25)
[2017-06-02] MEDS: PANTOPRAZOLE SODIUM 40 MG VIAL IVP SCH (09:30)
[2017-06-02] MEDS ORDERED: DIGOXIN 500 MCG/2 ML AMP IVP SCH ×2 (10:00)
[2017-06-02] MEDS ORDERED: CALCIUM GLUCONATE 50 ML IV ONE (10:26)
--- NOTE | 2017-06-02 10:34 | SOAPPROG ---
SOAP Progress Note Assessment/Plan: Assessment: ATHLEEN V Date of : 1955 Patient Status: Inpatient Attending Provider: Juan Carlos Pisano Date: 06/01/17 12:09 Initialization Date: 06/01/17 12:09 SOAP Progress Note Assessment/Plan: 1. Asystolic arrest - likely secondary to hypoxia from aspiration pneumonia. rewarmed and ready for extubation per dr jewell. Consider angiogram for risk stratification when acute issues resolve 2. A-fib - Pt has a history of PAF in the setting of ETOH use/abuse. Pt went into A-fib with RVR on 06/01/17. She is currently on amiodarone gtt with elevated rates. She is unlikely to hold sinus rhythm with cardioversion until acute issues resolve. --> weaned off levophed now on wean from neosynephrine --> Continue amiodarone gtt --> Consider digoxin 3. Hypotension - Pt requires pressor support for hypotension. Echocardiogram with normal LVEF. Suspect secondary to sepsis. -->holding pressures wean timmy 4. Pneumonia - Pt with L greater than R alveolar infiltrates. Suspect secondary to aspiration. --> Appreciate pulmonary input. Subjective: Pt intubated and sedate In rewarming phase of HACA protocol A-fib wiht RVR overnight despite prophylactic amiodarone IV Continues to require 70 FiO2 to maintain saturation Continues to require pressor support Objective: Plan: 06/02/17 10:23 Subjective: intubated ...fully warmed ...alert ..follows simple commands..still in a fib... Objective: Vital Signs Temp Pulse Resp BP Pulse Ox 36.6 C 118 H 21 H 117/70 97 06/02/17 09:00 06/02/17 09:00 06/02/17 09:00 06/02/17 09:00 06/02/17 07:00 Laboratory Results 06/02/17 05:15 06/02/17 05:15 06/01/17 06/02/17 06/03/17 05:59 05:59 05:59 Intake Total 4076.3 5535.4 Output Total 270 910 Balance 3806.3 4625.4 PT 15.5 SEC (12.0-15.0) H 06/01/17 17:50 INR 1.21 (0.83-1.16) H 06/01/17 17:50 Physical Exam - Physical Exam Respiratory: lungs clear Cardiac/Chest: irregularly irregular, No edema ICD10 Worksheet Patient Problems: Problems Problem Status Onset Atrial fibrillation with RVR Acute Cardiac arrest Acute Vomiting Acute Abdominal pain Acute Alcohol abuse Acute Alcohol intoxication Acute Alcohol withdrawal Acute Alcohol withdrawal Acute Ankle fracture Acute Atrial fibrillation Acute C. difficile diarrhea Acute 09/23/16 GI bleed Acute Nausea & vomiting Acute Nausea and vomiting in adult Acute
[2017-06-02] MEDS ORDERED: CALCIUM GLUCONATE 1 GM in D5W 50 ML IV ONE (11:00)
--- NOTE | 2017-06-02 11:23 | PDINTPN ---
Ore Bridge Operator Progress Note Assessment/Plan: Assessment: S/P Witnessed asystolic->VF arrest in ER: On HACA protocol, now re-warmed. Still on moderate-dose NE to maintain MAP at lower limits of goal. Hypotension: Likely due to hypothermia and possible infection/sepsis. Limited ECHO yesterday showed good systolic function. Pneumonia, probable aspiration: On Invanz. FIO2 down to 40% with good saturations. History of EtOH abuse: No EtOH on admission labs. At risk for withdrawal Right groin hematoma: Soft. H/H down a bit. Anemia: Likely due to dilution, blood loss/hematoma at catheter site. Plan: Titrate NE as tolerated. Extubate. Continue Invanz, follow CXR. Start CIWA. 55 minutes CC Time managing pressor levels, addressing ventilator weaning, extubation, new groin hematoma. 06/02/17 16:24 Subjective: Intubated, sedated but waking up. Objective: Vital Signs Temp Pulse Resp BP Pulse Ox 36.6 C 118 H 25 H 103/58 L 95 06/02/17 11:00 06/02/17 11:00 06/02/17 11:00 06/02/17 11:00 06/02/17 11:00 Laboratory Results 06/02/17 05:15 06/02/17 05:15 06/01/17 06/02/17 06/03/17 05:59 05:59 05:59 Intake Total 4076.3 5535.4 Output Total 270 910 250 Balance 3806.3 4625.4 -250 PT 15.5 SEC (12.0-15.0) H 06/01/17 17:50 INR 1.21 (0.83-1.16) H 06/01/17 17:50 Laboratory Tests 06/01/17 06:30 pCO2 26 L pO2 75 Total CO2 18 L ABG pH 7.42 ABG HCO3 17 L O2 Concentration % 70 Respiration Rate 16 Tidal Volume 500 PEEP 5 Physical Exam - Physical Exam General Appearance: alert, no apparent distress EENT: normal ENT inspection Neck: normal inspection Respiratory: lungs clear, normal breath sounds, respiratory distress Cardiac/Chest: regular rate, rhythm, No edema Abdomen: normal bowel sounds, non-tender, soft Skin: normal color, warm/dry Extremities: normal inspection Neuro/Psych: No alert, No oriented x 3, No motor weakness ICD10 Worksheet Patient Problems: Problems Problem Status Onset Atrial fibrillation with RVR Acute Cardiac arrest Acute Vomiting Acute Abdominal pain Acute Alcohol abuse Acute Alcohol intoxication Acute Alcohol withdrawal Acute Alcohol withdrawal Acute Ankle fracture Acute Atrial fibrillation Acute C. difficile diarrhea Acute 09/23/16 GI bleed Acute Nausea & vomiting Acute Nausea and vomiting in adult Acute
--- NOTE | 2017-06-02 11:39 | HOSPPROG ---
Hospitalist Progress Note Assessment/Plan: 61 yo female with hx of alcoholism had witness cardiac arrest She is in Afib and BP has been soft Weaning off Pressors * witnessed cardiac arrest after vomiting and choking * Most likely initiating causes respiratory rather than cardiac * HACA, rewarming * Cardiology following * TTE with preserved LVEF * acute respiratory failure * bilateral pneumonia * Markedly elevated procalcitonin * cont Invanz * history of alcoholism, on CIWA * history of atrial fibrillation * Lovenox on hold * Amio * coagulopathy * Thrombocytopenia, cont to drop, has not been on Heparin products * DVT prophylaxis * SCD's Plan: -Wean off Pressors -Extubate -Cont Invanz -Cont Amio and Digoxin -Cont with IVF -Hold Lovenox -Monitor platelets -Start CIWA -SCD's D/W team and quality assurance qa lab analyst during team rounds Subjective: Awake, alert, following commnads. No CP or SOB Objective: Vital Signs Temp Pulse Resp BP Pulse Ox 36.6 C 118 H 25 H 103/58 L 95 06/02/17 11:00 06/02/17 11:00 06/02/17 11:00 06/02/17 11:00 06/02/17 11:00 Laboratory Results 06/02/17 05:15 06/02/17 05:15 06/01/17 06/02/17 06/03/17 05:59 05:59 05:59 Intake Total 4076.3 5535.4 Output Total 270 910 250 Balance 3806.3 4625.4 -250 PT 15.5 SEC (12.0-15.0) H 06/01/17 17:50 INR 1.21 (0.83-1.16) H 06/01/17 17:50 - Physical Exam Constitutional: no apparent distress Eyes: PERRL Ears, Nose, Mouth, Throat: moist mucous membranes, hearing normal Cardiovascular: irregularly irregular, edema (trace) Respiratory: reduced air movement Gastrointestinal: normoactive bowel sounds Skin: warm Psychiatric: anxious Lymph, Heme, Immunologic: No petechiae ICD10 Worksheet Patient Problems: Problems Problem Status Onset Atrial fibrillation with RVR Acute Cardiac arrest Acute Vomiting Acute Abdominal pain Acute Alcohol abuse Acute Alcohol intoxication Acute Alcohol withdrawal Acute Alcohol withdrawal Acute Ankle fracture Acute Atrial fibrillation Acute C. difficile diarrhea Acute 09/23/16 GI bleed Acute Nausea & vomiting Acute Nausea and vomiting in adult Acute
[2017-06-02] MEDS: AMIODARONE HCL 200 ML IV SCH ×2 (11:48→23:31)
[2017-06-02 13:01] LABS: PLATELET COUNT 32 10^3/uL (150-400)
[2017-06-02] MEDS ORDERED: ALTEPLASE 2 MG VIAL IVP PRN (13:05)
[2017-06-02] MEDS: OXYCODONE/APAP 5/325 TAB PO PRN ×2 (15:14→21:35)
[2017-06-02 16:16] LABS: PLATELET COUNT 31 10^3/uL (150-400)
[2017-06-02 16:20] LABS: INR 1.26 (0.83-1.16)
[2017-06-02 22:47] LABS: PLATELET COUNT 53 10^3/uL (150-400)
--- NOTE | 2017-06-02 23:22 | CPEKG ---
Heart Rate: 112 RR Interval: 536 QRSD Interval: 66 QT Interval: 308 QTC Interval: 421 QRS [place]one: -5 T Wave [place]: 216 EKG Severity - ABNORMAL ECG - EKG Impression: ATRIAL FIBRILLATION EKG Impression: LOW VOLTAGE THROUGHOUT EKG Impression: BORDERLINE R WAVE PROGRESSION, ANTERIOR LEADS Electronically Signed By: Jose Perkins 04-Jun-2017 08:04:18
[2017-06-03] MEDS ORDERED: POTASSIUM Cl (KCl) 50 ML IV ONE
[2017-06-03] MEDS: OXYCODONE/APAP 5/325 TAB PO PRN ×3 (03:38→17:07)
[2017-06-03 06:06] LABS: PLATELET COUNT 46 10^3/uL (150-400)
[2017-06-03] MEDS ORDERED: MAGNESIUM SULF 1 GM/DEXTROSE 100 ML IV ONE (06:50)
[2017-06-03] MEDS: PHENYLEPHRINE HCL 50 MG in D5W 250 ML IV SCH (08:07)
[2017-06-03] MEDS: THIAMINE HCL 500 MG in NS 250 ML IV SCH ×2 (09:18→14:03)
[2017-06-03] MEDS: ERTAPENEM 1 GM VIAL IV SCH (09:18)
[2017-06-03] MEDS: PANTOPRAZOLE SODIUM 40 MG VIAL IVP SCH (09:19)
--- NOTE | 2017-06-03 09:33 | SOAPPROG ---
SOAP Progress Note Assessment/Plan: Assessment: ATHLEEN V Date of : 1955 Patient Status: Inpatient Attending Provider: Juan Carlos Pisano Date: 06/01/17 12:09 Initialization Date: 06/01/17 12:09 SOAP Progress Note Assessment/Plan: 1. Asystolic arrest - extubated and doing well today Consider angiogram or tm for risk stratification when acute issues resolve. 2. A-fib - Pt has a history of PAF in the setting of ETOH use/abuse. Pt went into A-fib with RVR on 06/01/17. She is currently on amiodarone gtt . she is back in nsr. will transition to po amiodarone . 3. Hypotension - Echocardiogram with normal LVEF. Suspect secondary to sepsis. 4. Pneumonia - Pt with L greater than R alveolar infiltrates. Suspect secondary to aspiration. --> Appreciate pulmonary input. Plan:1.as ordered 06/02/17 10:23 06/03/17 09:33 Objective: Vital Signs Temp Pulse Resp BP Pulse Ox 37.3 C 78 27 H 115/61 94 06/03/17 09:00 06/03/17 09:00 06/03/17 09:00 06/03/17 09:00 06/03/17 09:00 Laboratory Results 06/03/17 05:30 06/03/17 05:30 06/02/17 06/03/17 06/04/17 05:59 05:59 05:59 Intake Total 5535.4 2616.7 Output Total 910 850 Balance 4625.4 1766.7 PT 16.0 SEC (12.0-15.0) H 06/02/17 15:55 INR 1.26 (0.83-1.16) H 06/02/17 15:55 ICD10 Worksheet Patient Problems: Problems Problem Status Onset Atrial fibrillation with RVR Acute Cardiac arrest Acute Vomiting Acute Abdominal pain Acute Alcohol abuse Acute Alcohol intoxication Acute Alcohol withdrawal Acute Alcohol withdrawal Acute Ankle fracture Acute Atrial fibrillation Acute C. difficile diarrhea Acute 09/23/16 GI bleed Acute Nausea & vomiting Acute Nausea and vomiting in adult Acute
--- NOTE | 2017-06-03 11:22 | HOSPPROG ---
Hospitalist Progress Note Assessment/Plan: 61 yo female with hx of alcoholism had witness cardiac arrest She is in Afib and BP has been soft Weaning off Pressors * witnessed cardiac arrest after vomiting and choking * Most likely initiating causes respiratory rather than cardiac * S/p HACA, rewarming * Cardiology following * TTE with preserved LVEF * acute respiratory failure, now extubated * bilateral pneumonia * Markedly elevated procalcitonin * cont Invanz, would continue treatment * history of alcoholism, on CIWA * history of atrial fibrillation * Lovenox on hold secondary to thrombocytopenia * Amio, will be changed from IV to PO * Thrombocytopenia, cont to drop, has not been on Heparin products * Right groin hematoma, appears resolving * DVT prophylaxis * SCD's Plan: -Wean off Matt -Speech to eval, can hopefully advance diet -Invanz per Pulm -Change Amio to PO -Will likely stop Digoxin -Hold Lovenox -Monitor platelets, s/p 1 unit transfusion on 06/02 -Cont CIWA -May need Lasix at some point -SCD's -PT/OT D/W team and cane flume feeding machine operator during team rounds Subjective: Received one unit platelets. Weaning off pressors, Still on Matt. Converted back to SR this morning. Extubated. CXR with perihilar edema. awake , follows commands Objective: Vital Signs Temp Pulse Resp BP Pulse Ox 37 C 75 20 103/59 L 92 06/03/17 11:00 06/03/17 11:00 06/03/17 11:00 06/03/17 11:00 06/03/17 11:00 Laboratory Results 06/03/17 05:30 06/03/17 05:30 06/02/17 06/03/17 06/04/17 05:59 05:59 05:59 Intake Total 5535.4 2616.7 Output Total 910 850 Balance 4625.4 1766.7 PT 16.0 SEC (12.0-15.0) H 06/02/17 15:55 INR 1.26 (0.83-1.16) H 06/02/17 15:55 - Physical Exam Constitutional: no apparent distress, not in pain Eyes: PERRL, EOMI Ears, Nose, Mouth, Throat: moist mucous membranes, hearing normal Cardiovascular: regular rate and rhythym, edema (trace LE) Respiratory: reduced air movement Gastrointestinal: normoactive bowel sounds, soft, non-tender abdomen Skin: warm Musculoskeletal: generalized weakness Neurologic: AAOx3 Psychiatric: interacting appropriately, not anxious, not encephalopathic, thought process linear Lymph, Heme, Immunologic: No petechiae ICD10 Worksheet Patient Problems: Problems Problem Status Onset Atrial fibrillation with RVR Acute Cardiac arrest Acute Vomiting Acute Abdominal pain Acute Alcohol abuse Acute Alcohol intoxication Acute Alcohol withdrawal Acute Alcohol withdrawal Acute Ankle fracture Acute Atrial fibrillation Acute C. difficile diarrhea Acute 09/23/16 GI bleed Acute Nausea & vomiting Acute Nausea and vomiting in adult Acute
--- NOTE | 2017-06-03 13:26 | PDINTPN ---
Enrichment Specialist Progress Note Assessment/Plan: Assessment: S/P Witnessed asystolic->VF arrest in ER: Completed HACA protocol, now re-warmed , extubated. Hypotension: ? due to possible infection/sepsis. Limited ECHO showed good systolic function. Weaned off phenylephrine this morning. Paroxysmal AF. Now in NSR. On Amio Pneumonia, probable aspiration: On Invanz. Right groin hematoma: Soft. H/H stable since last night. Anemia: Likely due to dilution, blood loss/hematoma at catheter site. Hx EtOH abuse: No EtOH on initial blood testing. No sings/symptoms of withdrawal. Plan: Advance diet, increase activity. Change to PO Amiodarone. Continue Invanz , follow CXR. CIWA, treat as needed. Probably can leave ICU by tomorrow. 06/03/17 13:29 Subjective: Feels OK, denies dyspnea. Pain controlled. Minimal cough. Appetite returning Objective: Vital Signs Temp Pulse Resp BP Pulse Ox 37 C 75 20 103/59 L 92 06/03/17 11:00 06/03/17 11:00 06/03/17 11:00 06/03/17 11:00 06/03/17 11:00 Laboratory Results 06/03/17 05:30 06/03/17 05:30 06/02/17 06/03/17 06/04/17 05:59 05:59 05:59 Intake Total 5535.4 2616.7 Output Total 910 850 Balance 4625.4 1766.7 PT 16.0 SEC (12.0-15.0) H 06/02/17 15:55 INR 1.26 (0.83-1.16) H 06/02/17 15:55 Physical Exam - Physical Exam General Appearance: alert, no apparent distress EENT: normal ENT inspection Neck: normal inspection Respiratory: rales (left), No lungs clear (rales left) Cardiac/Chest: regular rate, rhythm, No edema Abdomen: normal bowel sounds, non-tender Skin: normal color, warm/dry Extremities: non-tender, normal inspection Neuro/Psych: alert, No normal mood/affect (flat, delayed responses), No oriented x 3 ICD10 Worksheet Patient Problems: Problems Problem Status Onset Atrial fibrillation with RVR Acute Cardiac arrest Acute Vomiting Acute Abdominal pain Acute Alcohol abuse Acute Alcohol intoxication Acute Alcohol withdrawal Acute Alcohol withdrawal Acute Ankle fracture Acute Atrial fibrillation Acute C. difficile diarrhea Acute 09/23/16 GI bleed Acute Nausea & vomiting Acute Nausea and vomiting in adult Acute
[2017-06-03] MEDS: NS 1,000 ML IV SCH (18:12)
[2017-06-04] MEDS: OXYCODONE/APAP 5/325 TAB PO PRN ×4 (04:22→21:00)
[2017-06-04 05:30] LABS: PLATELET COUNT 37 10^3/uL (150-400)
[2017-06-04] MEDS ORDERED: MAGNESIUM SULF 1 GM/DEXTROSE 100 ML IV ONE (07:59)
[2017-06-04] MEDS: NS 1,000 ML IV SCH (08:06)
[2017-06-04] MEDS: THIAMINE HCL 500 MG in NS 250 ML IV SCH ×2 (08:06→11:35)
[2017-06-04] MEDS: ERTAPENEM 1 GM VIAL IV SCH (08:06)
[2017-06-04] MEDS: AMIODARONE HCL 200 MG TAB PO SCH ×2 (08:07→20:42)
[2017-06-04] MEDS: PANTOPRAZOLE SODIUM 40 MG VIAL IVP SCH (08:07)
--- NOTE | 2017-06-04 09:42 | SOAPPROG ---
SOAP Progress Note Assessment/Plan: Assessment: 1. Witnessed cardiac arrest. Apparently the patient had asystole followed by ventricular fibrillation. This was thought to be a secondary phenomena due to a primary respiratory arrest in the setting of pneumonia which is likely either aspiration or community-acquired. She has had an echocardiogram which demonstrated a normal ejection fraction. At the time of arrival her EKG did demonstrate [address] depression consistent with ischemia. This could be either primary or secondary. She also had a slight troponin elevation. 2. Left sided pneumonia. Likely aspiration in nature. Currently being managed by pulmonology. She is on broad-spectrum antibiotics. 3. Thrombocytopenia. She has been thrombocytopenic since HACA. Currently her Lovenox is on hold. 4. History of paroxysmal atrial fibrillation. She went back into atrial fibrillation this morning. Her heart rates are marginally controlled. 5. History of alcohol abuse. 6. Probable cirrhosis. Plan: 1. Will continue p.o. amiodarone 200 mg twice daily. 2. Will start digoxin 0.125 mg daily. 3. We will continue to follow along. 4. At some point, prior to hospital discharge or shortly thereafter, once her mental status clears we may consider cardiac catheterization in light of her cardiac arrest. 06/04/17 09:36 Subjective: The patient was seen and examined. Her chart was reviewed. I reviewed previous consultations from Dr. Nolan Tinajero and follow-up visits from Dr. Joe Richards. Currently, she is confused. She states that she is 36 years old. She is not in any discomfort and denies significant dyspnea. Apparently, earlier this morning, she went into atrial fibrillation with heart rates in the low 100s. Her hemodynamics have been tenuous with systolics that have been running in the 90s and low 100s. She is currently not on any pressors. Objective: Vital Signs Temp Pulse Resp BP Pulse Ox 36.7 C 113 H 25 H 107/71 92 06/04/17 08:00 06/04/17 08:00 06/04/17 08:00 06/04/17 08:00 06/04/17 08:00 Laboratory Results 06/04/17 04:55 06/04/17 04:10 06/03/17 06/04/17 06/05/17 05:59 05:59 05:59 Intake Total 2616.7 2242 Output Total 850 500 Balance 1766.7 1742 PT 16.0 SEC (12.0-15.0) H 06/02/17 15:55 INR 1.26 (0.83-1.16) H 06/02/17 15:55 Physical Exam - Physical Exam General Appearance: no apparent distress, other (Chronically ill) Neck: non-tender Respiratory: rales (Throughout the left lung field), No respiratory distress, No accessory muscle use, No decreased breath sounds Cardiac/Chest: irregularly irregular, No edema, No gallop, No JVD Peripheral Pulses: 2+: carotid (R), carotid (L) Abdomen: non-tender, soft Pelvic Exam: deferred Rectal: deferred Back: Normal inspection ICD10 Worksheet Patient Problems: Problems Problem Status Onset Atrial fibrillation with RVR Acute Cardiac arrest Acute Vomiting Acute Abdominal pain Acute Alcohol abuse Acute Alcohol intoxication Acute Alcohol withdrawal Acute Alcohol withdrawal Acute Ankle fracture Acute Atrial fibrillation Acute C. difficile diarrhea Acute 09/23/16 GI bleed Acute Nausea & vomiting Acute Nausea and vomiting in adult Acute
[2017-06-04] MEDS ORDERED: MAGNESIUM SULF 1 GM/DEXTROSE 100 ML BAG IV ONE (11:33)
[2017-06-04] MEDS ORDERED: LORazepam 0.5 MG TAB PO PRN (15:04)
[2017-06-04] MEDS ORDERED: PROTOCOL POTASSIUM 1 DOSE MISC PRN (15:26)
--- NOTE | 2017-06-04 15:47 | PDINTPN ---
Therapist Progress Note Assessment/Plan: Assessment: 61-year-old with underlying chronic alcoholism, atrial fibrillation, depression and psychiatric disease who presented to the ED on 05/30 with nausea and vomiting. She had a witnessed cardiopulmonary arrest there, had CPR with eventual return of spontaneous circulation. She was placed on the HACA protocol. Following rewarming she has done relatively well. She is responsive , oriented x2 and half, and hemodynamically stable. S/P Witnessed asystolic->VF arrest in ER: Completed HACA protocol, now re-warmed , extubated. Mental status improving Hypotension: ? due to possible infection/sepsis. Limited ECHO showed good systolic function. Off pressors. Paroxysmal AF. Now in NSR. On Amio Pneumonia, probable aspiration: On Invanz. Chest x-ray improving. Right groin hematoma: Soft. . Anemia: Likely due to dilution, blood loss/hematoma at catheter site. Hematocrit 24.7 today, slightly down. No evidence of active ongoing bleeding. Hx EtOH abuse: No EtOH on initial blood testing. No sings/symptoms of withdrawal. Plan: Increase activity, mobilize. PT/OT/ST. Continue PO Amiodarone, antibiotics, supportive care. Follow CXR intermittently, lab. Continue CIWA for now, treat as needed. Can transition to PCU status. 20 min CC time spent directly with patient. Discussed with nursing, Cardiology , and the ICU multi disciplinary team. Objective: Vital Signs Temp Pulse Resp BP Pulse Ox 36.6 C 101 H 24 H 116/79 99 06/04/17 15:44 06/04/17 15:44 06/04/17 15:44 06/04/17 15:44 06/04/17 15:44 Laboratory Results 06/04/17 04:55 06/04/17 12:35 06/03/17 06/04/17 06/05/17 05:59 05:59 05:59 Intake Total 2616.7 2242 Output Total 850 500 150 Balance 1766.7 1742 -150 PT 16.0 SEC (12.0-15.0) H 06/02/17 15:55 INR 1.26 (0.83-1.16) H 06/02/17 15:55 CXR: Bilateral infiltrates persist, with persistent density left base. Physical Exam - Physical Exam General Appearance: alert, no apparent distress, other (Somewhat lethargic, easily arousable and responsive) EENT: PERRL/EOMI, other (Nasal cannula at 4-5 L: 99%.) Neck: normal inspection (o JVD) Respiratory: lungs clear (Anteriorly), decreased breath sounds (At bases), rales (At bases, left greater than right), other (Consolidative changes at left base posterior), No rhonchi, No wheezing Cardiac/Chest: irregularly irregular (Atrial fibrillation at approximately 100.) Abdomen: normal bowel sounds, non-tender, soft Skin: normal color, warm/dry Extremities: No pedal edema Neuro/Psych: no motor/sensory deficits, cognition abnormalities (Improving) ICD10 Worksheet Patient Problems: Problems Problem Status Onset Atrial fibrillation with RVR Acute Cardiac arrest Acute Vomiting Acute Abdominal pain Acute Alcohol abuse Acute Alcohol intoxication Acute Alcohol withdrawal Acute Alcohol withdrawal Acute Ankle fracture Acute Atrial fibrillation Acute C. difficile diarrhea Acute 09/23/16 GI bleed Acute Nausea & vomiting Acute Nausea and vomiting in adult Acute
--- NOTE | 2017-06-04 16:48 | ASMTCMCOM ---
CM Note CM Note Notes: Patient lives alone. According to Therapy, patient needs SNF but has denied in the past. She has a sister and daughter who are estranged. Her hx of ETOH abuse enhances her medical needs. She has an old injury fx ankle and now rib fxs. Referrals sent to [facility]. Date Signed: 06/04/2017 04:19 PM Electronically Signed By:Candis Mejia LCSW
[2017-06-04] MEDS: SUCRALFATE 1 GM TAB PO SCH ×2 (17:08→20:43)
--- NOTE | 2017-06-04 17:57 | HOSPPROG ---
Hospitalist Progress Note Assessment/Plan: * Cardiac arrest -s/p HACA -suspect respiratory cause (aspiration) -consider cardiac cath (borderline troponin) * Afib -amiodarone + digoxin (takes diltiazem at home) -hold anticoag due to severe thrombocytopenia * Acute respiratory failure -extubated * Aspiration PNA -IV invanz * Thrombocytopenia -holding Lovenox * Possible Etoh cirrhosis -check ammonia * Hypotension s/p pressors - possible sepsis Subjective: Now stable, poor cognition - may be baseline Objective: Vital Signs Temp Pulse Resp BP Pulse Ox 36.5 C 106 H 23 H 104/73 96 06/04/17 16:00 06/04/17 16:00 06/04/17 16:00 06/04/17 16:00 06/04/17 16:00 Laboratory Results 06/04/17 04:55 06/04/17 12:35 06/03/17 06/04/17 06/05/17 05:59 05:59 05:59 Intake Total 2616.7 2242 1359 Output Total 850 500 250 Balance 1766.7 1742 1109 PT 16.0 SEC (12.0-15.0) H 06/02/17 15:55 INR 1.26 (0.83-1.16) H 06/02/17 15:55 d/w Dr. Raul katz for transfer to PCU ABD US - fatty liver ECHO - normal EF - Physical Exam Constitutional: no apparent distress, appears nourished, not in pain Cardiovascular: regular rate and rhythym, no murmur, rub, or gallop Respiratory: no respiratory distress, no rales or rhonchi, clear to auscultation Gastrointestinal: normoactive bowel sounds, soft, non-tender abdomen, no palpable masses Skin: no rashes or abrasions, no fluctuance, no induration Neurologic: AAOx3, sensation intact bilaterally Psychiatric: interacting appropriately, not anxious, not encephalopathic, thought process linear ICD10 Worksheet Patient Problems: Problems Problem Status Onset Atrial fibrillation with RVR Acute Cardiac arrest Acute Vomiting Acute Abdominal pain Acute Alcohol abuse Acute Alcohol intoxication Acute Alcohol withdrawal Acute Alcohol withdrawal Acute Ankle fracture Acute Atrial fibrillation Acute C. difficile diarrhea Acute 09/23/16 GI bleed Acute Nausea & vomiting Acute Nausea and vomiting in adult Acute
[2017-06-04] MEDS ORDERED: POTASSIUM CL 10 MEQ TAB PO ONE (19:44)
[2017-06-04] MEDS: METHOCARBAMOL 500 MG TAB PO SCH (20:42)
[2017-06-04] MEDS: PANTOPRAZOLE SODIUM 40 MG TAB PO SCH (20:42)
[2017-06-04] MEDS: GABAPENTIN 100 MG CAP PO SCH (20:43)
[2017-06-04] MEDS: traZODone 50 MG TAB PO SCH (20:43)
[2017-06-05 05:14] LABS: PLATELET COUNT 45 10^3/uL (150-400)
[2017-06-05] MEDS: SUCRALFATE 1 GM TAB PO SCH ×4 (06:00→20:17)
[2017-06-05] MEDS: OXYCODONE/APAP 5/325 TAB PO PRN ×2 (06:00→12:08)
[2017-06-05] MEDS ORDERED: POTASSIUM CL 10 MEQ TAB PO ONE ×2 (07:34→21:16)
[2017-06-05] MEDS ORDERED: MAGNESIUM SULF 1 GM/DEXTROSE 100 ML IV ONE (08:13)
[2017-06-05] MEDS: THIAMINE HCL 500 MG in NS 250 ML IV SCH (08:53)
[2017-06-05] MEDS: PANTOPRAZOLE SODIUM 40 MG TAB PO SCH ×2 (09:37→20:17)
[2017-06-05] MEDS: LEVOTHYROXINE 112 MCG TAB PO SCH (09:37)
[2017-06-05] MEDS: AMIODARONE HCL 200 MG TAB PO SCH ×2 (09:37→20:17)
[2017-06-05] MEDS: SERTRALINE HCL 100 MG TAB PO SCH (09:37)
[2017-06-05] MEDS: FUROSEMIDE 40 MG/4 ML VIAL IVP SCH ×2 (09:37→16:27)
[2017-06-05] MEDS: FERROUS SULFATE 140 MG TAB.ER PO SCH (09:37)
[2017-06-05] MEDS: ERTAPENEM 1 GM VIAL IV SCH (09:51)
[2017-06-05] MEDS ORDERED: THIAMINE HCL 100 MG TAB PO SCH (10:25)
--- NOTE | 2017-06-05 12:59 | PDINTPN ---
Freelance Designer Progress Note Assessment/Plan: Assessment: 61-year-old with underlying chronic alcoholism, atrial fibrillation, depression and psychiatric disease who presented to the ED on 05/30 with nausea and vomiting. She had a witnessed cardiopulmonary arrest there, had CPR with eventual return of spontaneous circulation. She was placed on the HACA protocol. Following rewarming she has done relatively well. She is responsive , oriented x2 and half, and hemodynamically stable. S/P Witnessed asystolic->VF arrest in ER: Completed HACA protocol, now re-warmed , extubated. Mental status improving. Hypotension: ? due to possible infection/sepsis. Limited ECHO showed good systolic function. Off pressors. Paroxysmal AF. Now in NSR. On Amio 200 BID Acute respiratory failure, resolved. Pneumonia, probable aspiration: On Invanz. Chest x-ray improving. Right groin hematoma: Soft. . Anemia: Likely due to dilution, blood loss/hematoma at catheter site. Hematocrit 25.9 today, slightly better. No evidence of active ongoing bleeding. Hx EtOH abuse: No EtOH on initial blood testing. No sings/symptoms of withdrawal. Plan: Increase activity, mobilize. PT/OT/ST. Continue PO Amiodarone, antibiotics times 10 days total, then DC. Day 6 today. Continue, supportive care. Recheck chest x-ray tomorrow, lab. Continue CIWA for now, treat as needed. Continue on PCU status. 20 min CC time spent directly with patient. Discussed with nursing, Cardiology , and the ICU multi disciplinary team. Subjective: Doing okay. Add up in chair. Weak. Denies shortness of breath. Sternal chest pain persists Objective: Vital Signs Temp Pulse Resp BP Pulse Ox 36.9 C 73 26 H 108/59 L 99 06/05/17 11:57 06/05/17 11:57 06/05/17 11:57 06/05/17 11:57 06/05/17 11:57 Microbiology 05/31/17 00:00 Blood Culture - Final Blood 05/31/17 01:30 Blood Culture - Final Blood Laboratory Results 06/05/17 04:45 06/05/17 04:45 06/04/17 06/05/17 06/06/17 05:59 05:59 05:59 Intake Total 2242 2909 Output Total 500 750 300 Balance 1742 2159 -300 PT 16.0 SEC (12.0-15.0) H 06/02/17 15:55 INR 1.26 (0.83-1.16) H 06/02/17 15:55 Laboratory Tests 06/05/17 06/05/17 06/05/17 04:45 04:45 04:45 Calcium 8.0 L Ionized Calcium 1.24 Phosphorus 2.9 Magnesium 1.6 Ammonia < 9.0 L NT-Pro-B Natriuret Pep 6410 H CXR: None today. Physical Exam - Physical Exam General Appearance: thin, other (In chair, appears weak, responses are somewhat slow.) EENT: PERRL/EOMI, other (Nasal cannula at 4 L: 99%) Neck: normal inspection (no JVD) Respiratory: lungs clear, decreased breath sounds (At bases), rales (Bibasilar rales, left greater than right, with some bronchial changes on left), pain on movement (Sternal), No rhonchi, No wheezing Cardiac/Chest: systolic murmur, irregularly irregular (Atrial fibrillation alternating with normal sinus rhythm at times.) Abdomen: normal bowel sounds, non-tender, soft Pelvic Exam: other (No Swanson catheter, using bedside commode) Skin: warm/dry, pallor Extremities: pedal edema (Trace) Neuro/Psych: no motor/sensory deficits (Moves all extremities equally. Globally weak), cognition abnormalities (Slow responses, oriented to person, place and February.) ICD10 Worksheet Patient Problems: Problems Problem Status Onset Abdominal pain Acute Ankle fracture Acute GI bleed Acute Atrial fibrillation Acute Alcohol intoxication Acute Cardiac arrest Acute Alcohol withdrawal Acute Nausea and vomiting in adult Acute Alcohol abuse Acute Nausea & vomiting Acute Vomiting Acute Atrial fibrillation with RVR Acute C. difficile diarrhea Acute 09/23/16 Alcohol withdrawal Acute
[2017-06-05] MEDS: THIAMINE HCL 100 MG TAB PO SCH (16:19)
[2017-06-05] MEDS ORDERED: IOPAMIDOL (ISOVUE 370) 100 ML BTL IV ONE (16:37)
--- NOTE | 2017-06-05 17:10 | ASMTCMCOM ---
CM Note CM Note Notes: Patient agrees to go to SNF Rehab, prefers to go to [facility]. Patient has referrals sent to [facility], [facility] and [facility]. Cog eval 11 out of 30. She would prefer having friend Renay Carbone make [facility] or [facility] but Renay is presently on a cruise off [place]. [id number] faxed to [facility] today. Patient's friend Ildefonso John [phone]; Address [address], [id number], [place] [address] stated that he would be her Medical Proxy. When I asked patient about Ildefonso, she said that "he won't come to the hospital", She preferred [facility]. Date Signed: 06/05/2017 05:10 PM Electronically Signed By:Candis Mejia LCSW
--- NOTE | 2017-06-05 18:12 | HOSPPROG ---
Hospitalist Progress Note Assessment/Plan: * Cardiac arrest -s/p HACA -suspect respiratory cause (aspiration) -consider cardiac cath (borderline troponin) * Afib -amiodarone + digoxin (takes diltiazem at home) -hold anticoag due to severe thrombocytopenia * Acute respiratory failure -extubated * Aspiration PNA -IV invanz -consider tap large pleural effusion -recheck CXR in am * Possible pulmonary edema -gentle IV lasix * Small volume PE -unclear clinical significance -high risk anti-coagulation given severe thrombocytopenia -hold off on anticoagulation for now -check BLE US rule out DVT * Severe chest wall pain -CT negative for acute rib or sternal fractures post CPR -suspect bruising - will still benefit from EZ pap * Thrombocytopenia -holding Lovenox * Possible Etoh cirrhosis * Hypotension s/p pressors - possible sepsis * h/o GIB -PPI + carafate -another reason to avoid anticoagulation Subjective: c/o severe chest pain with inspiration Objective: Vital Signs Temp Pulse Resp BP Pulse Ox 36.6 C 67 18 114/69 99 06/05/17 16:15 06/05/17 16:15 06/05/17 16:15 06/05/17 16:15 06/05/17 16:15 Microbiology 05/31/17 00:00 Blood Culture - Final Blood 05/31/17 01:30 Blood Culture - Final Blood Laboratory Results 06/05/17 04:45 06/05/17 04:45 06/04/17 06/05/17 06/06/17 05:59 05:59 05:59 Intake Total 2242 2909 200 Output Total 500 750 400 Balance 1742 2159 -200 PT 16.0 SEC (12.0-15.0) H 06/02/17 15:55 INR 1.26 (0.83-1.16) H 06/02/17 15:55 CT chest - extensive PNA, large left pleural effusion, small volume peripheral PE - Physical Exam Constitutional: no apparent distress, appears nourished, not in pain Cardiovascular: regular rate and rhythym, no murmur, rub, or gallop Respiratory: no respiratory distress, no rales or rhonchi, clear to auscultation Gastrointestinal: normoactive bowel sounds, soft, non-tender abdomen, no palpable masses Skin: no rashes or abrasions, no fluctuance, no induration Psychiatric: anxious, poor insight, poor judgement, poor memory, No interacting appropriately, No agitated ICD10 Worksheet Patient Problems: Problems Problem Status Onset Atrial fibrillation with RVR Acute Cardiac arrest Acute Vomiting Acute Abdominal pain Acute Alcohol abuse Acute Alcohol intoxication Acute Alcohol withdrawal Acute Alcohol withdrawal Acute Ankle fracture Acute Atrial fibrillation Acute C. difficile diarrhea Acute 09/23/16 GI bleed Acute Nausea & vomiting Acute Nausea and vomiting in adult Acute
[2017-06-05] MEDS: GABAPENTIN 100 MG CAP PO SCH (20:17)
[2017-06-05] MEDS: traZODone 50 MG TAB PO SCH (20:17)
[2017-06-05] MEDS: METHOCARBAMOL 500 MG TAB PO SCH (22:22)
[2017-06-06] MEDS: SUCRALFATE 1 GM TAB PO SCH ×4 (06:12→21:25)
[2017-06-06 08:17] LABS: PLATELET COUNT 54 10^3/uL (150-400)
[2017-06-06] MEDS: THIAMINE HCL 100 MG TAB PO SCH (08:51)
[2017-06-06] MEDS: PANTOPRAZOLE SODIUM 40 MG TAB PO SCH ×2 (08:51→21:23)
[2017-06-06] MEDS: AMIODARONE HCL 200 MG TAB PO SCH ×2 (08:51→21:23)
[2017-06-06] MEDS: FERROUS SULFATE 140 MG TAB.ER PO SCH (08:51)
[2017-06-06] MEDS: LEVOTHYROXINE 112 MCG TAB PO SCH (08:51)
[2017-06-06] MEDS: SERTRALINE HCL 100 MG TAB PO SCH (08:51)
[2017-06-06] MEDS: FUROSEMIDE 20 MG/2 ML VIAL IVP SCH ×2 (08:52→15:28)
[2017-06-06] MEDS: ERTAPENEM 1 GM VIAL IV SCH (08:58)
[2017-06-06] MEDS ORDERED: PANTOPRAZOLE SODIUM 40 MG TAB PO SCH (09:00)
[2017-06-06] MEDS ORDERED: POTASSIUM CL 10 MEQ TAB PO ONE ×2 (09:35→19:21)
[2017-06-06] MEDS ORDERED: MAGNESIUM SULF 2 GM/WATER 50 ML IV ONE (09:36)
[2017-06-06] MEDS ORDERED: MAGNESIUM HYDROXIDE 30 ML UDCUP PO PRN (11:18)
[2017-06-06] MEDS ORDERED: POLYETHYLENE GLYCOL 3350 17 GM PKT PO PRN (11:18)
[2017-06-06] MEDS ORDERED: LACTULOSE 20 GM/30 ML UDCUP PO PRN (11:18)
[2017-06-06] MEDS ORDERED: BISACODYL 10 MG SUPP PR PRN (11:18)
[2017-06-06] MEDS ORDERED: PROTOCOL MAGNESIUM 1 DOSE IV PRN (11:27)
[2017-06-06] MEDS: SPIRONOLACTONE 50 MG TAB PO SCH (13:14)
--- NOTE | 2017-06-06 13:21 | ASMTCMCOM ---
CM Note CM Note Notes: SKYLAR received a call from Odilon from [facility]. Odilon reports that a roofing sales representative came out to assess pt on 06/03/17 and pt had declined to go to SNF for 30 days at that time. CM met w/ pt for dispo planning. Pt is now agreeable to the 30 day stay. SKYLAR left a msg for Odilon requesting another roofing sales representative come out to assess. CM spoke w/ [employer] and they report that pt is over income to qualify for Medicaid LTC. [facility] is unable to accept pt at this time due [facility] Medicaid only instead of LTC Medicaid. [facility] is willing to accept. CM to follow. Plan: SNF pending 30 day approval from [facility] Date Signed: 06/06/2017 01:21 PM Electronically Signed By:HERRERA Ashley
--- NOTE | 2017-06-06 20:29 | HOSPPROG ---
Hospitalist Progress Note Assessment/Plan: * Cardiac arrest -s/p HACA -suspect respiratory cause (aspiration) -consider cardiac cath (borderline troponin) * Afib -amiodarone (takes diltiazem at home) -hold anticoag due to severe thrombocytopenia * Acute respiratory failure -extubated * Aspiration PNA -IV invanz * Volume overload -IV lasix * Small volume PE -unclear clinical significance -high risk anti-coagulation given severe thrombocytopenia -hold off on anticoagulation for now -BLE US rule out DVT - negative * Severe chest wall pain post CPR -CT negative for acute rib or sternal fractures post CPR -suspect bruising - will still benefit from EZ pap * Thrombocytopenia -holding Lovenox * Etoh cirrhosis -lasix + aldactone * Hypotension s/p pressors - possible sepsis * h/o GIB -PPI + carafate -MW tear + gastric ulcer Subjective: Complains of chest pain less Objective: Vital Signs Temp Pulse Resp BP Pulse Ox 37.2 C 87 18 116/68 94 06/06/17 11:47 06/06/17 15:42 06/06/17 15:42 06/06/17 15:42 06/06/17 15:42 Laboratory Results 06/06/17 07:35 06/06/17 18:15 06/05/17 06/06/17 06/07/17 05:59 05:59 05:59 Intake Total 2909 800 810 Output Total 750 520 800 Balance 2159 280 10 PT 16.0 SEC (12.0-15.0) H 06/02/17 15:55 INR 1.26 (0.83-1.16) H 06/02/17 15:55 CXR viewed, my personal interpretation is - improved infiltrate, mild pulm edema tele reviewed - NSR - Physical Exam Constitutional: no apparent distress, appears nourished, not in pain Cardiovascular: regular rate and rhythym, JVD, edema (3+), No systolic murmur, No tachycardia Respiratory: no respiratory distress, no rales or rhonchi, clear to auscultation Gastrointestinal: normoactive bowel sounds, soft, non-tender abdomen, no palpable masses Skin: no rashes or abrasions, no fluctuance, no induration Psychiatric: encephalopathic, anxious, poor insight, poor judgement ICD10 Worksheet Patient Problems: Problems Problem Status Onset Atrial fibrillation with RVR Acute Cardiac arrest Acute Vomiting Acute Abdominal pain Acute Alcohol abuse Acute Alcohol intoxication Acute Alcohol withdrawal Acute Alcohol withdrawal Acute Ankle fracture Acute Atrial fibrillation Acute C. difficile diarrhea Acute 09/23/16 GI bleed Acute Nausea & vomiting Acute Nausea and vomiting in adult Acute
[2017-06-06] MEDS: GABAPENTIN 100 MG CAP PO SCH (21:23)
[2017-06-06] MEDS: traZODone 50 MG TAB PO SCH (21:23)
[2017-06-06] MEDS: METHOCARBAMOL 500 MG TAB PO SCH (21:24)
[2017-06-06] MEDS: SENNOSIDES/DOCUSATE SODIUM TAB PO SCH (21:24)
[2017-06-07 04:17] LABS: PLATELET COUNT 58 10^3/uL (150-400)
[2017-06-07] MEDS: SUCRALFATE 1 GM TAB PO SCH ×4 (06:02→21:27)
[2017-06-07] MEDS ORDERED: POTASSIUM CL 10 MEQ TAB PO ONE ×2 (07:04→19:38)
[2017-06-07] MEDS ORDERED: MAGNESIUM SULF 2 GM/WATER 50 ML IV ONE (07:07)
[2017-06-07 07:14] LABS: HEPATITIS C ANTIBODY TOTAL NEGATIVE (NEGATIVE)
[2017-06-07] MEDS: FUROSEMIDE 20 MG/2 ML VIAL IVP SCH ×2 (07:42→15:14)
[2017-06-07] MEDS: AMIODARONE HCL 200 MG TAB PO SCH ×2 (07:42→21:27)
[2017-06-07] MEDS: ERTAPENEM 1 GM VIAL IV SCH (07:42)
[2017-06-07] MEDS: PANTOPRAZOLE SODIUM 40 MG TAB PO SCH ×2 (07:43→21:27)
[2017-06-07] MEDS: SPIRONOLACTONE 50 MG TAB PO SCH (07:43)
[2017-06-07] MEDS: THIAMINE HCL 100 MG TAB PO SCH (07:43)
[2017-06-07] MEDS: FERROUS SULFATE 140 MG TAB.ER PO SCH (07:43)
[2017-06-07] MEDS: SERTRALINE HCL 100 MG TAB PO SCH (07:43)
[2017-06-07] MEDS: LEVOTHYROXINE 112 MCG TAB PO SCH (07:43)
[2017-06-07] MEDS: SENNOSIDES/DOCUSATE SODIUM TAB PO SCH ×2 (07:44→21:27)
--- NOTE | 2017-06-07 18:52 | HOSPPROG ---
Hospitalist Progress Note Assessment/Plan: * Cardiac arrest -s/p HACA -suspect respiratory cause (aspiration) -consider cardiac cath (borderline troponin) - per Dr. Snowden * Afib -amiodarone (takes diltiazem at home) -hold anticoag due to severe thrombocytopenia * Acute respiratory failure -extubated * Aspiration PNA -IV invanz * Volume overload -IV lasix * Small volume PE -unclear clinical significance -high risk anti-coagulation given severe thrombocytopenia -hold off on anticoagulation for now -BLE US rule out DVT - negative * Severe chest wall pain post CPR -CT negative for acute rib or sternal fractures post CPR -suspect bruising - will still benefit from EZ pap * Thrombocytopenia - baseline platelets are near normal -holding Lovenox -could consider anticoagulation once platelets recover * Etoh cirrhosis -lasix + aldactone * Hypotension s/p pressors - possible sepsis * h/o GIB -PPI + carafate -MW tear + gastric ulcer -anticoagulation DC'd last hospitalization -patient also has h/o DVT Subjective: Chest wall still hurting badly Objective: Vital Signs Temp Pulse Resp BP Pulse Ox 36.6 C 86 19 131/82 H 92 06/07/17 15:45 06/07/17 15:45 06/07/17 15:45 06/07/17 15:45 06/07/17 15:45 Laboratory Results 06/07/17 04:05 06/06/17 06/07/17 06/08/17 05:59 05:59 05:59 Intake Total 800 1660 150 Output Total 520 1450 1200 Balance 280 210 -1050 PT 16.0 SEC (12.0-15.0) H 06/02/17 15:55 INR 1.26 (0.83-1.16) H 06/02/17 15:55 - Physical Exam Constitutional: no apparent distress, appears nourished, not in pain Cardiovascular: regular rate and rhythym, no murmur, rub, or gallop, edema (3+) Respiratory: no respiratory distress, no rales or rhonchi, clear to auscultation Gastrointestinal: normoactive bowel sounds, soft, non-tender abdomen, no palpable masses Skin: no rashes or abrasions, no fluctuance, no induration Psychiatric: encephalopathic, flat affect, poor insight ICD10 Worksheet Patient Problems: Problems Problem Status Onset Atrial fibrillation with RVR Acute Cardiac arrest Acute Vomiting Acute Abdominal pain Acute Alcohol abuse Acute Alcohol intoxication Acute Alcohol withdrawal Acute Alcohol withdrawal Acute Ankle fracture Acute Atrial fibrillation Acute C. difficile diarrhea Acute 09/23/16 GI bleed Acute Nausea & vomiting Acute Nausea and vomiting in adult Acute
[2017-06-07] MEDS: METHOCARBAMOL 500 MG TAB PO SCH (21:27)
[2017-06-07] MEDS: traZODone 50 MG TAB PO SCH (21:27)
[2017-06-07] MEDS: GABAPENTIN 100 MG CAP PO SCH (21:27)
[2017-06-08 05:15] LABS: PLATELET COUNT 71 10^3/uL (150-400)
[2017-06-08] MEDS: SUCRALFATE 1 GM TAB PO SCH ×4 (06:11→21:59)
[2017-06-08] MEDS: FUROSEMIDE 20 MG/2 ML VIAL IVP SCH ×2 (08:59→16:14)
[2017-06-08] MEDS: ERTAPENEM 1 GM VIAL IV SCH (09:21)
[2017-06-08] MEDS: FERROUS SULFATE 140 MG TAB.ER PO SCH (09:33)
[2017-06-08] MEDS: SERTRALINE HCL 100 MG TAB PO SCH (09:33)
[2017-06-08] MEDS: THIAMINE HCL 100 MG TAB PO SCH (09:33)
[2017-06-08] MEDS: SENNOSIDES/DOCUSATE SODIUM TAB PO SCH ×2 (09:33→22:01)
[2017-06-08] MEDS: OXYCODONE/APAP 5/325 TAB PO PRN ×2 (09:33→22:01)
[2017-06-08] MEDS: PANTOPRAZOLE SODIUM 40 MG TAB PO SCH ×2 (09:34→21:59)
[2017-06-08] MEDS: SPIRONOLACTONE 50 MG TAB PO SCH (09:35)
[2017-06-08] MEDS: LEVOTHYROXINE 112 MCG TAB PO SCH (09:35)
[2017-06-08] MEDS: AMIODARONE HCL 200 MG TAB PO SCH ×2 (09:35→21:56)
--- NOTE | 2017-06-08 10:09 | HOSPPROG ---
Hospitalist Progress Note Assessment/Plan: DIAGNOSES: * Cardiac arrest s/p HACA -suspect respiratory cause (aspiration) -consider cardiac cath (borderline troponin) - per Dr. Snowden * Afib -amiodarone (takes diltiazem at home) -off anticoag due to severe thrombocytopenia; platelets up to 70,000, could start anticoagulation soon though will need to go over her EtOH hx and discuss risk/benefit in detail w her * Acute hypoxemic respiratory failure, multifactorial -extubated -history of COPD, pulmonary hypertension noted on current echo; current asp pneumonia * acute diastolic congestive heart failure -requiring ongoing Lasix diuresis at this time -quite painful for her to get up to the commode multiple times, will review with other physicians but favor placing Swanson at this time for ongoing diuresis * Aspiration PNA -continue IV invanz * Small volume PE -unclear clinical significance; no DVTs on ultrasound -high risk anti-coagulation given severe thrombocytopenia, hold off on anticoagulation for now due to low plts and EtOH issues * Severe chest wall pain post CPR -will add Lidoderm patch at this time, consider other measures as necessary * Thrombocytopenia - baseline platelets are near normal -holding Lovenox due to this; ? Etiology, possibly EtOH and/or cancer medication * Etoh long hx of binges with intake of 1 liter Vodka daily; hx of cirrhosis -lasix + aldactone * h/o GIB due toMW tear + gastric ulcer -PPI + carafate; Requires ongoing inpatient care here with continued cardiac monitoring; Will unlikely be safe for DC to home so will discuss SNF options w CM SUBJECTIVE: Ongoing severe chest wall pain from her CP are Ongoing significant dyspnea Very weak, able to get up and do short walks with a walker so far OBJECTIVE Vitals reviewed: Overall stable with no fevers [employer], my review: Exam: alert oriented skin warm dry color ok resps fairly labored at rest in bed with oxygen lungs diminished BSs with diffuse rhonchi heart regular abd soft nondistended nontender, bowel sounds present limbs warm, still some edema with pitting present iv site ok Laboratory data: Total white count remains low at 2 with 1700 neutrophils Stable anemia at hemoglobin 8, platelets now increased to 7000 Bilirubin, transaminases, renal function and electrolytes all stable Albumin low at 2.2 I reviewed her most recent chest x-ray is from June 06, there is significant left pleural effusion present Objective: Vital Signs Temp Pulse Resp BP Pulse Ox 37.0 C 86 24 H 121/67 H 91 L 06/08/17 07:51 06/08/17 07:51 06/08/17 07:51 06/08/17 07:51 06/08/17 07:51 Laboratory Results 06/08/17 05:05 06/08/17 05:05 06/07/17 06/08/17 06/09/17 06:59 06:59 06:59 Intake Total 1660 750 Output Total 1450 1650 Balance 210 -900 PT 16.0 SEC (12.0-15.0) H 06/02/17 15:55 INR 1.26 (0.83-1.16) H 06/02/17 15:55 ICD10 Worksheet Patient Problems: Problems Problem Status Onset Atrial fibrillation with RVR Acute Cardiac arrest Acute Vomiting Acute Abdominal pain Acute Alcohol abuse Acute Alcohol intoxication Acute Alcohol withdrawal Acute Alcohol withdrawal Acute Ankle fracture Acute Atrial fibrillation Acute C. difficile diarrhea Acute 09/23/16 GI bleed Acute Nausea & vomiting Acute Nausea and vomiting in adult Acute
[2017-06-08] MEDS: LIDOCAINE 5% 1 EA PATCH TD SCH (10:19)
[2017-06-08] MEDS ORDERED: POTASSIUM CL 10 MEQ TAB PO ONE ×2 (14:37→21:41)
[2017-06-08] MEDS ORDERED: MAGNESIUM SULF 2 GM/WATER 50 ML IV ONE (14:38)
--- NOTE | 2017-06-08 14:57 | ASMTCMCOM ---
CM Note CM Note Notes: 06/08/2017 Case Management Note Pt was assessed today by Hawa Amador from [facility] today. She was approved for SNF rehab but triggered a PASSR review. PASSR won't be reviewed until Sunday by OBRA coordinator. Pt has not been accepted to a SNF rehab yet. [facility] is not taking pts currently d/t influenza in the facility. Will recheck with [facility] early next week. [facility] declined pt and [facility] is considering pt. Case Management d/c poc: SNF pending acceptance and completion of ULTC 100 process. Case Management to follow. Date Signed: 06/08/2017 02:57 PM Electronically Signed By:Marlena Sandoval RN
[2017-06-08] MEDS: GABAPENTIN 100 MG CAP PO SCH (21:58)
[2017-06-08] MEDS: traZODone 50 MG TAB PO SCH (21:58)
[2017-06-08] MEDS: METHOCARBAMOL 500 MG TAB PO SCH (21:58)
[2017-06-08] MEDS: PATCH REMOVAL 1 EA PATCH TD SCH (22:10)
[2017-06-09] MEDS ORDERED: CEPACOL LOZENGE PO PRN (04:07)
[2017-06-09] MEDS: SUCRALFATE 1 GM TAB PO SCH ×4 (04:41→20:45)
[2017-06-09] MEDS: OXYCODONE/APAP 5/325 TAB PO PRN ×3 (05:28→20:51)
[2017-06-09] MEDS ORDERED: MAGNESIUM SULF 1 GM/DEXTROSE 100 ML IV ONE (08:58)
[2017-06-09] MEDS: LIDOCAINE 5% 1 EA PATCH TD SCH (09:31)
[2017-06-09] MEDS: ERTAPENEM 1 GM VIAL IV SCH (09:35)
[2017-06-09] MEDS: SPIRONOLACTONE 50 MG TAB PO SCH (09:36)
[2017-06-09] MEDS: LEVOTHYROXINE 112 MCG TAB PO SCH (09:36)
[2017-06-09] MEDS: FERROUS SULFATE 140 MG TAB.ER PO SCH (09:36)
[2017-06-09] MEDS: SERTRALINE HCL 100 MG TAB PO SCH (09:37)
[2017-06-09] MEDS: THIAMINE HCL 100 MG TAB PO SCH (09:37)
[2017-06-09] MEDS: PANTOPRAZOLE SODIUM 40 MG TAB PO SCH ×2 (09:37→20:45)
[2017-06-09] MEDS: FUROSEMIDE 20 MG/2 ML VIAL IVP SCH ×3 (09:37→17:14)
[2017-06-09] MEDS: SENNOSIDES/DOCUSATE SODIUM TAB PO SCH ×2 (09:37→20:46)
[2017-06-09] MEDS: AMIODARONE HCL 200 MG TAB PO SCH ×2 (09:37→20:46)
[2017-06-09] MEDS ORDERED: POTASSIUM CL 10 MEQ TAB PO ONE (18:44)
--- NOTE | 2017-06-09 18:53 | HOSPPROG ---
Hospitalist Progress Note Assessment/Plan: DIAGNOSES: * Cardiac arrest s/p HACA -suspect respiratory cause (aspiration) -consider cardiac cath (borderline troponin) - per Dr. Snowden * Afib -amiodarone (takes diltiazem at home) -off anticoag due to severe thrombocytopenia; platelets up to 70,000, could start anticoagulation soon though will need to go over her EtOH hx and discuss risk/benefit in detail w her * Acute hypoxemic respiratory failure, multifactorial -extubated -history of COPD, pulmonary hypertension noted on current echo; current asp pneumonia * acute diastolic congestive heart failure -requiring ongoing Lasix diuresis at this time -quite painful for her to get up to the commode multiple times, will review with other physicians but favor placing Swanson at this time for ongoing diuresis * Aspiration PNA -has completed course of invanz * Small volume PE -unclear clinical significance; no DVTs on ultrasound -high risk anti-coagulation given severe thrombocytopenia, hold off on anticoagulation for now due to low plts and EtOH issues * Severe chest wall pain post CPR -will add Lidoderm patch at this time, consider other measures as necessary * Thrombocytopenia - baseline platelets are near normal -holding Lovenox due to this; ? Etiology, possibly EtOH and/or cancer medication * Etoh long hx of binges with intake of 1 liter Vodka daily; hx of cirrhosis -lasix + aldactone * h/o GIB due toMW tear + gastric ulcer -PPI + carafate; Requires ongoing inpatient care here with continued cardiac monitoring; Will unlikely be safe for DC to home so will discuss SNF options w CM PLANS: -continue diuretics -she has been refusing some of her diuretic doses due to difficulty with pain getting up to the bedside commode, so we did agree to use a Swanson catheter for the time being to be able to get better diuresis more quickly and to be able to track it more accurately -recheck platelet count and consider starting anticoagulant if in good range -she is not on any beta-riley or other rate control medicines; I will discuss with Cardiology who had stopped seeing the patient but it seems to me that we should have her on some rate control medicine and given the possibility of a cardiac arrest with arrhythmia it would be good to consider possibly using beta- blockers, it is not clear to me why she is not on any medication at this time -continue other current cardiac medications -repeat chest x-ray to determine progress with diuresis which she stills seems to need -continue PT and OT and encouraging her to be more active -ongoing case management in progress to look at discharge possibilities SUBJECTIVE: Ongoing severe chest wall pain from her CPR is better today with the Lidoderm patch Ongoing significant dyspnea perhaps slightly improved from yesterday Very weak, able to get up and do short walks with a walker as far as the commode in her room, but did climbing to get up otherwise today OBJECTIVE Vitals reviewed: 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, 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: All sinus rhythm Eyes and nose are hard to reconcile do not appear entirely reliable Weight is decreasing Exam: alert oriented skin warm dry color ok resps fairly labored at rest in bed with oxygen lungs diminished BSs with diffuse rhonchi heart regular abd soft nondistended nontender, bowel sounds present limbs warm, edema is somewhat decreased in legs today iv site ok Laboratory data: Potassium and magnesium remains stable Objective: Vital Signs Temp Pulse Resp BP Pulse Ox 37.2 C 79 12 123/71 H 94 06/09/17 15:44 06/09/17 15:44 06/09/17 15:44 06/09/17 15:44 06/09/17 17:22 Laboratory Results 06/08/17 05:05 06/09/17 17:20 06/08/17 06/09/17 06/10/17 06:59 06:59 06:59 Intake Total 750 470 Output Total 1650 550 Balance -900 -80 PT 16.0 SEC (12.0-15.0) H 06/02/17 15:55 INR 1.26 (0.83-1.16) H 06/02/17 15:55 - Time Spent With Patient Time Spent with Patient: greater than 35 minutes Time Spent with Patient: Greater than 35 minutes spent on this patients care, greater than 50% of time spent counseling, educating, and coordinating care regarding the above mentioned plan. ICD10 Worksheet Patient Problems: Problems Problem Status Onset Atrial fibrillation with RVR Acute Cardiac arrest Acute Vomiting Acute Abdominal pain Acute Alcohol abuse Acute Alcohol intoxication Acute Alcohol withdrawal Acute Alcohol withdrawal Acute Ankle fracture Acute Atrial fibrillation Acute C. difficile diarrhea Acute 09/23/16 GI bleed Acute Nausea & vomiting Acute Nausea and vomiting in adult Acute
[2017-06-09] MEDS: GABAPENTIN 100 MG CAP PO SCH (20:44)
[2017-06-09] MEDS: METHOCARBAMOL 500 MG TAB PO SCH (20:45)
[2017-06-09] MEDS: PATCH REMOVAL 1 EA PATCH TD SCH (20:46)
[2017-06-09] MEDS: traZODone 50 MG TAB PO SCH (20:46)
[2017-06-10 03:33] LABS: PLATELET COUNT 104 10^3/uL (150-400)
[2017-06-10] MEDS: SUCRALFATE 1 GM TAB PO SCH ×4 (05:53→22:05)
[2017-06-10] MEDS: SPIRONOLACTONE 50 MG TAB PO SCH (08:36)
[2017-06-10] MEDS: FUROSEMIDE 20 MG/2 ML VIAL IVP SCH ×2 (08:36→15:09)
[2017-06-10] MEDS: SERTRALINE HCL 100 MG TAB PO SCH (08:36)
[2017-06-10] MEDS: LEVOTHYROXINE 112 MCG TAB PO SCH (08:36)
[2017-06-10] MEDS: PANTOPRAZOLE SODIUM 40 MG TAB PO SCH ×2 (08:37→22:05)
[2017-06-10] MEDS: AMIODARONE HCL 200 MG TAB PO SCH ×2 (08:37→22:05)
[2017-06-10] MEDS: THIAMINE HCL 100 MG TAB PO SCH (08:37)
[2017-06-10] MEDS: FERROUS SULFATE 140 MG TAB.ER PO SCH (08:37)
[2017-06-10] MEDS: SENNOSIDES/DOCUSATE SODIUM TAB PO SCH ×2 (08:37→22:10)
[2017-06-10] MEDS: LIDOCAINE 5% 1 EA PATCH TD SCH (08:38)
[2017-06-10] MEDS ORDERED: MAGNESIUM SULF 1 GM/DEXTROSE 100 ML IV ONE (10:03)
[2017-06-10] MEDS: OXYCODONE/APAP 5/325 TAB PO PRN ×3 (10:09→22:04)
--- NOTE | 2017-06-10 18:48 | HOSPPROG ---
Hospitalist Progress Note Assessment/Plan: DIAGNOSES: * Cardiac arrest s/p HACA -suspect respiratory cause (aspiration) -consider cardiac cath (borderline troponin) - per Dr. Snowden * Afib -amiodarone (takes diltiazem at home) -off anticoag due to severe thrombocytopenia; platelets up to 70,000, could start anticoagulation soon though will need to go over her EtOH hx and discuss risk/benefit in detail w her * Acute hypoxemic respiratory failure, multifactorial -extubated -history of COPD, pulmonary hypertension noted on current echo; current asp pneumonia * acute diastolic congestive heart failure -requiring ongoing Lasix diuresis at this time -quite painful for her to get up to the commode multiple times, will review with other physicians but favor placing Swanson at this time for ongoing diuresis * Aspiration PNA -has completed course of invanz * Small volume PE -unclear clinical significance; no DVTs on ultrasound -high risk anti-coagulation given severe thrombocytopenia, hold off on anticoagulation for now due to low plts and EtOH issues * Severe chest wall pain post CPR -will add Lidoderm patch at this time, consider other measures as necessary * Thrombocytopenia - baseline platelets are near normal -holding Lovenox due to this; ? Etiology, possibly EtOH and/or cancer medication * Etoh long hx of binges with intake of 1 liter Vodka daily; hx of cirrhosis -lasix + aldactone * h/o GIB due toMW tear + gastric ulcer -PPI + carafate; Requires ongoing inpatient care here with continued cardiac monitoring; Will unlikely be safe for DC to home so will discuss SNF options w CM PLANS: -continue diuretics, though I would anticipate that in the next day or 2 she will be at a compensated dry weight without pulmonary or peripheral edema of significance and we can back off on the diuretic -she is not on any beta-riley or other rate control medicines; I will discuss with Cardiology who had stopped seeing the patient but it seems to me that we should have her on some rate control medicine and given the possibility of a cardiac arrest with arrhythmia it would be good to consider possibly using beta- blockers, it is not clear to me why she is not on any medication at this time -continue other current cardiac medications -continue PT and OT and encouraging her to be more active -ongoing case management in progress to look at discharge possibilities The patient desire strongly to go home but understands that she will need to go to a nursing home facility. Essentially at this point however she is really not getting out of bed at all though there is really no reason for that. I did have a long talk with her today about the progressive muscular and scale to weakness and neurovascular reflex atrophy that she is incurring by staying in bed all day and strongly encouraged her to spend as much time as possible up in a chair and get up and walk as much as possible in her room. She understands this and agrees to try increasing her activity. 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: All sinus rhythm Exam: alert oriented skin warm dry color ok resps fairly labored at rest in bed with oxygen lungs diminished BSs with diffuse rhonchi heart regular abd soft nondistended nontender, bowel sounds present limbs warm, edema is somewhat decreased in legs today iv site ok Laboratory data: Potassium and magnesium remains stable Objective: Vital Signs Temp Pulse Resp BP Pulse Ox 36.7 C 78 20 96/53 L 95 06/10/17 15:04 06/10/17 15:04 06/10/17 15:04 06/10/17 15:04 06/10/17 15:04 Laboratory Results 06/10/17 03:22 06/10/17 03:22 06/09/17 06/10/17 06/11/17 06:59 06:59 06:59 Intake Total 470 580 100 Output Total 550 350 700 Balance -80 230 -600 PT 16.0 SEC (12.0-15.0) H 06/02/17 15:55 INR 1.26 (0.83-1.16) H 06/02/17 15:55 - Time Spent With Patient Time Spent with Patient: greater than 35 minutes Time Spent with Patient: Greater than 35 minutes spent on this patients care, greater than 50% of time spent counseling, educating, and coordinating care regarding the above mentioned plan. ICD10 Worksheet Patient Problems: Problems Problem Status Onset Atrial fibrillation with RVR Acute Cardiac arrest Acute Vomiting Acute Abdominal pain Acute Alcohol abuse Acute Alcohol intoxication Acute Alcohol withdrawal Acute Alcohol withdrawal Acute Ankle fracture Acute Atrial fibrillation Acute C. difficile diarrhea Acute 09/23/16 GI bleed Acute Nausea & vomiting Acute Nausea and vomiting in adult Acute
[2017-06-10] MEDS ORDERED: POTASSIUM CL 10 MEQ TAB PO ONE (21:24)
[2017-06-10] MEDS: traZODone 50 MG TAB PO SCH (22:06)
[2017-06-10] MEDS: GABAPENTIN 100 MG CAP PO SCH (22:06)
[2017-06-10] MEDS: METHOCARBAMOL 500 MG TAB PO SCH (22:07)
[2017-06-10] MEDS: PATCH REMOVAL 1 EA PATCH TD SCH (22:10)
[2017-06-11] MEDS: SUCRALFATE 1 GM TAB PO SCH ×4 (05:11→19:38)
[2017-06-11] MEDS: OXYCODONE/APAP 5/325 TAB PO PRN ×2 (08:54→19:37)
[2017-06-11] MEDS: FERROUS SULFATE 140 MG TAB.ER PO SCH (08:55)
[2017-06-11] MEDS: SPIRONOLACTONE 50 MG TAB PO SCH (08:55)
[2017-06-11] MEDS: AMIODARONE HCL 200 MG TAB PO SCH ×2 (08:55→19:38)
[2017-06-11] MEDS: PANTOPRAZOLE SODIUM 40 MG TAB PO SCH ×2 (08:56→19:38)
[2017-06-11] MEDS: SERTRALINE HCL 100 MG TAB PO SCH (08:56)
[2017-06-11] MEDS: THIAMINE HCL 100 MG TAB PO SCH (08:56)
[2017-06-11] MEDS: LEVOTHYROXINE 112 MCG TAB PO SCH (08:56)
[2017-06-11] MEDS: FUROSEMIDE 20 MG/2 ML VIAL IVP SCH ×2 (08:57→16:46)
[2017-06-11] MEDS: SENNOSIDES/DOCUSATE SODIUM TAB PO SCH ×2 (08:57→19:41)
[2017-06-11] MEDS ORDERED: MAGNESIUM SULF 1 GM/DEXTROSE 100 ML IV ONE (09:00)
[2017-06-11] MEDS: LIDOCAINE 5% 1 EA PATCH TD SCH (10:18)
--- NOTE | 2017-06-11 12:49 | ASMTCMCOM ---
CM Note CM Note Notes: 06/11/2017 Case Management Note Case Management received phone call from Marilyn notifying case management that pt has been accepted to [facility] rehab. Notified RN and MD. Provided info on facility to pt. Pt is in agreement for 30 day stay. Pt requested stop at home when d/c. Informed pt that was not possible for liability reasons and that transportation will be arranged by [facility] directly from [facility] to [facility]. Case Management d/c poc: To [facility] when medically stable. Case Management to follow. Date Signed: 06/11/2017 12:48 PM Electronically Signed By:Marlena Sandoval RN
[2017-06-11] MEDS ORDERED: TEMAZEPAM 15 MG CAP PO PRN (16:25)
[2017-06-11] MEDS ORDERED: NITROGLYCERIN 0.4 MG BTL SL PRN (16:25)
[2017-06-11] MEDS ORDERED: ACETAMINOPHEN 325 MG TAB PO PRN (16:25)
--- NOTE | 2017-06-11 16:35 | PDCARPN ---
Cardiology Progress Note Assessment/Plan: Assessment: 1.Witnessed cardiac arrestin ER. She came in with N/V/ coughing. She arrested (asystole) followed by brief ventricular fibrillation. Likely, this was secondary to a primary respiratory arrest in the setting of pneumonia. Pneumonia likely aspiration or community-acquired. Her echocardiogram showed normal EF. She had a troponin bump. She has no chest pain or SOB. To further evaluate her cardiac status post arrest, she will have a angiogram in the morning. 4. History of paroxysmal atrial fibrillation. Her heart rates are well controlled. 5. History of alcohol abuse. Plan: Cardiac angiogram in AM to evaluate cardiac status post cardiac arrest. 06/11/17 16:34 Objective: Vital Signs (8 Hrs) Temp Pulse Resp BP Pulse Ox 06/11/17 15:46 37.1 C 78 14 104/63 96 06/11/17 13:17 88 16 95 06/11/17 11:10 36.8 C 86 18 99/62 L 93 Intake/Output (24 Hrs) 06/10/17 06/11/17 06/12/17 05:59 05:59 05:59 Intake Total 580 400 660 Output Total 350 800 250 Balance 230 -400 410 Intake: Oral (ml) 580 300 660 IV Infused (ml) 100 Magnesium Sulf 1 gm/ 100 Dextrose 100 ml @ 100 mls /hr IV ONCE ONE Rx#: [id number] Output: Urine (ml) 350 800 250 Bedside Commode 350 800 250 Other: Weight 64.5 kg 61.9 kg Intake Quantity Yes Sufficient Number of Voids Bedside Commode 1 1 1 Incontinence 1 1 1 Toilet 1 Number of Stools Bedside Commode 1 1 Incontinence 1 Toilet 1 Result Diagrams: 06/10/17 03:22 06/11/17 05:15 - Physical Exam Constitutional: no apparent distress Cardiovascular: regular rate and rhythm, systolic murmur (ii/vi) Respiratory: clear to auscultate bilat, no crackles, no wheezes Skin: no rashes Neurologic: AAOx3 Psychiatric: cooperative, interactive ICD10 Worksheet Patient Problems: Problems Problem Status Onset Abdominal pain Acute Ankle fracture Acute GI bleed Acute Atrial fibrillation Acute Alcohol intoxication Acute Cardiac arrest Acute Alcohol withdrawal Acute Nausea and vomiting in adult Acute Alcohol abuse Acute Nausea & vomiting Acute Vomiting Acute Atrial fibrillation with RVR Acute C. difficile diarrhea Acute 09/23/16 Alcohol withdrawal Acute
[2017-06-11] MEDS: METHOCARBAMOL 500 MG TAB PO SCH (19:37)
[2017-06-11] MEDS: traZODone 50 MG TAB PO SCH (19:38)
[2017-06-11] MEDS: GABAPENTIN 100 MG CAP PO SCH (19:38)
[2017-06-11] MEDS: PATCH REMOVAL 1 EA PATCH TD SCH (19:41)
--- NOTE | 2017-06-11 19:50 | HOSPPROG ---
Hospitalist Progress Note Assessment/Plan: DIAGNOSES: * Cardiac arrest s/p HACA -suspect respiratory cause (aspiration) -consider cardiac cath (borderline troponin) - per Dr. Snowden * Afib -amiodarone (takes diltiazem at home) -off anticoag due to severe thrombocytopenia; platelets up to 70,000, could start anticoagulation soon though will need to go over her EtOH hx and discuss risk/benefit in detail w her * Acute hypoxemic respiratory failure, multifactorial -extubated -history of COPD, pulmonary hypertension noted on current echo; current asp pneumonia * acute diastolic congestive heart failure -requiring ongoing Lasix diuresis at this time -quite painful for her to get up to the commode multiple times, will review with other physicians but favor placing Swanson at this time for ongoing diuresis * Aspiration PNA -has completed course of invanz * Small volume PE -unclear clinical significance; no DVTs on ultrasound -high risk anti-coagulation given severe thrombocytopenia, hold off on anticoagulation for now due to low plts and EtOH issues * Severe chest wall pain post CPR -will add Lidoderm patch at this time, consider other measures as necessary * Thrombocytopenia - baseline platelets are near normal -holding Lovenox due to this; ? Etiology, possibly EtOH and/or cancer medication * Etoh long hx of binges with intake of 1 liter Vodka daily; hx of cirrhosis -lasix + aldactone * h/o GIB due toMW tear + gastric ulcer -PPI + carafate; Requires ongoing inpatient care here with continued cardiac monitoring; Will unlikely be safe for DC to home so will discuss SNF options w CM PLANS: -plan on coronary angiography tomorrow -begin low-dose metoprolol and see how she tolerates that -continue diuretics, though I would anticipate that in the next day or 2 she will be at a compensated dry weight without pulmonary or peripheral edema of significance and we can back off on the diuretic -continue other current cardiac medications -continue PT and OT and encouraging her to be more active -ongoing case management in progress to look at discharge possibilities will likely go to residential facility at the end of this hospital stay I reviewed the case in detail today with Dr. 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, 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: All sinus rhythm Exam: alert oriented skin warm dry color ok resps fairly labored at rest in bed with oxygen lungs diminished BSs with diffuse rhonchi heart regular abd soft nondistended nontender, bowel sounds present limbs warm, edema is somewhat decreased in legs today iv site ok Laboratory data: Potassium and magnesium remains stable Objective: Vital Signs Temp Pulse Resp BP Pulse Ox 37.1 C 77 18 104/63 94 06/11/17 15:46 06/11/17 17:49 06/11/17 17:49 06/11/17 15:46 06/11/17 17:49 Laboratory Results 06/10/17 03:22 06/11/17 05:15 06/10/17 06/11/17 06/12/17 06:59 06:59 06:59 Intake Total 580 400 660 Output Total 350 800 250 Balance 230 -400 410 PT 16.0 SEC (12.0-15.0) H 06/02/17 15:55 INR 1.26 (0.83-1.16) H 06/02/17 15:55 - Time Spent With Patient Time Spent with Patient: greater than 35 minutes Time Spent with Patient: Greater than 35 minutes spent on this patients care, greater than 50% of time spent counseling, educating, and coordinating care regarding the above mentioned plan. ICD10 Worksheet Patient Problems: Problems Problem Status Onset Atrial fibrillation with RVR Acute Cardiac arrest Acute Vomiting Acute Abdominal pain Acute Alcohol abuse Acute Alcohol intoxication Acute Alcohol withdrawal Acute Alcohol withdrawal Acute Ankle fracture Acute Atrial fibrillation Acute C. difficile diarrhea Acute 09/23/16 GI bleed Acute Nausea & vomiting Acute Nausea and vomiting in adult Acute
[2017-06-12 04:33] LABS: PLATELET COUNT 163 10^3/uL (150-400)
[2017-06-12 04:54] LABS: INR 1.1 (0.83-1.16); PROTIME(PATIENT) 14.4 SEC (12.0-15.0)
[2017-06-12] MEDS: SUCRALFATE 1 GM TAB PO SCH ×4 (05:41→20:55)
[2017-06-12] MEDS ORDERED: DIAZEPAM 5 MG TAB PO ONE (06:00)
[2017-06-12] MEDS ORDERED: FAMOTIDINE 20 MG TAB PO ONE (06:00)
[2017-06-12] MEDS ORDERED: ASPIRIN EC 325 MG TAB PO ONE (06:00)
[2017-06-12] MEDS ORDERED: diphenhydrAMINE 25 MG CAP PO ONE (06:00)
[2017-06-12] MEDS ORDERED: NS 1,000 ML IV ONE (08:00)
[2017-06-12] MEDS: AMIODARONE HCL 200 MG TAB PO SCH ×2 (08:23→20:55)
[2017-06-12] MEDS: OXYCODONE/APAP 5/325 TAB PO PRN ×2 (08:24→22:32)
[2017-06-12] MEDS: SERTRALINE HCL 100 MG TAB PO SCH (08:25)
[2017-06-12] MEDS: PANTOPRAZOLE SODIUM 40 MG TAB PO SCH ×2 (08:25→20:56)
[2017-06-12] MEDS: SENNOSIDES/DOCUSATE SODIUM TAB PO SCH ×2 (08:26→20:58)
[2017-06-12] MEDS: LEVOTHYROXINE 112 MCG TAB PO SCH (08:26)
[2017-06-12] MEDS ORDERED: MAGNESIUM SULF 1 GM/DEXTROSE 100 ML IV ONE (09:00)
--- NOTE | 2017-06-12 09:23 | CPEKG ---
Heart Rate: 71 RR Interval: 845 P-R Interval: 208 QRSD Interval: 76 QT Interval: 460 QTC Interval: 500 P [place]: 4 QRS [place]: -8 T Wave [place]: 5 EKG Severity - BORDERLINE ECG - EKG Impression: SINUS RHYTHM EKG Impression: BORDERLINE T ABNORMALITIES, ANTERIOR LEADS EKG Impression: BORDERLINE PROLONGED QT INTERVAL EKG Impression: SINUS RHYTHM HAS REPLACED ATRIAL FIBRILLATION NOTED ON PRIOR ECG Electronically Signed By: Nolan Sands 12-Jun-2017 10:23:51
--- NOTE | 2017-06-12 09:25 | PDPROPOC ---
Sedation Plan of Care Sedation Plan of Care: vital signs stable, mental status noted, patient educated of risks, benefits, alternatives, patient can tolerate sedation ASA Classification: ASA 2 Planned drugs: fentanyl, midazolam Mallampati Score: Class 2 Mallampati Reference Image: Patient passed 3-3-2 rule?: Yes
--- NOTE | 2017-06-12 09:26 | PDHPUP ---
History & Physical Update H&P update statement: This history and physical update is based on an assessment of the patient which was completed after admission or registration (within 24 hours), but prior to the surgery/procedure. H&P update: H&P reviewed & patient examined, no change in patient's condition since H&P completed
[2017-06-12] MEDS ORDERED: ONDANSETRON 4 MG/2 ML VIAL IVP ONE (09:33)
--- NOTE | 2017-06-12 10:03 | PDCARPN ---
Cardiology Progress Note Assessment/Plan: Assessment: 1.Witnessed cardiac arrestin ER. She came in with N/V/ coughing. She arrested (asystole) followed by brief ventricular fibrillation. Likely, this was secondary to a primary respiratory arrest in the setting of pneumonia. Pneumonia likely aspiration or community-acquired. Her echocardiogram showed normal EF. She had a troponin bump. She has no chest pain or SOB. To further evaluate her cardiac status post arrest, she will have a angiogram in the morning. 4. History of paroxysmal atrial fibrillation. Her heart rates are well controlled. 5. History of alcohol abuse. Plan: Cardiac angiogram in AM to evaluate cardiac status post cardiac arrest. 06/11/17 16:34 06/12/17 10:[address] Sands was in earlier to review the upcoming procedure with her and answer questions. She is comfortable with proceeding with the cardiac angiogram. She wants to know how her heart is now after the cardiac arrest. She has no chest pain or SOB. Subjective: I want to know how my heart. Dr Sands explained the procedure well and answered my questions. Objective: Vital Signs (8 Hrs) Temp Pulse Resp BP Pulse Ox 06/12/17 08:41 36.8 C 69 14 98/60 L 98 06/12/17 08:00 36.8 C 69 16 98/60 L 99 06/12/17 04:00 37.0 C 73 17 110/70 97 Intake/Output (24 Hrs) 06/11/17 06/12/17 06/13/17 05:59 05:59 05:59 Intake Total 400 1950 Output Total 800 250 Balance -400 1700 Intake: Oral (ml) 300 1950 IV Infused (ml) 100 Magnesium Sulf 1 gm/ 100 Dextrose 100 ml @ 100 mls /hr IV ONCE ONE Rx#: [id number] Output: Urine (ml) 800 250 Bedside Commode 800 250 Other: Weight 61.9 kg 58.1 kg Intake Quantity Yes Sufficient Number of Voids Bedside Commode 1 1 Incontinence 1 1 Toilet 2 Number of Stools Bedside Commode 1 Toilet 1 1 Result Diagrams: 06/12/17 04:10 06/12/17 04:10 - Physical Exam Constitutional: no apparent distress Cardiovascular: regular rate and rhythm Skin: warm, no edema Neurologic: AAOx3 Psychiatric: cooperative, interactive ICD10 Worksheet Patient Problems: Problems Problem Status Onset Atrial fibrillation with RVR Acute Cardiac arrest Acute Vomiting Acute Abdominal pain Acute Alcohol abuse Acute Alcohol intoxication Acute Alcohol withdrawal Acute Alcohol withdrawal Acute Ankle fracture Acute Atrial fibrillation Acute C. difficile diarrhea Acute 09/23/16 GI bleed Acute Nausea & vomiting Acute Nausea and vomiting in adult Acute
[2017-06-12] MEDS ORDERED: fentaNYL 100 MCG/2 ML INJ ONE (10:34)
[2017-06-12] MEDS ORDERED: LIDOCAINE 1% 300 MG/30 ML SDV ONE (10:34)
[2017-06-12] MEDS ORDERED: IOPAMIDOL (ISOVUE-370) 150 ML BTL IV ONE (10:34)
[2017-06-12] MEDS ORDERED: MIDAZOLAM 2 MG/2 ML VIAL ONE (10:34)
--- NOTE | 2017-06-12 11:54 | PDDXCAT ---
Diagnostic Cath Note - . 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 LAD: Medium diameter vessel with a principal diagonal (equal in magnitude to the take off from the LAD). No luminal irregularities were noted. LCX: Medium diameter vessel with smallish OM (one principal with mid LCX take off). No luminal irregularities were noted. RCA: Medium diameter vessel. No luminal irregularities. Dominant vessel with PDA supply. EDP: 12 mm Hg LVEF: 65% Wall motion: normal Complications: none Estimated blood loss: <50ml Closure method: Angioseal Assessment: 61 y/o female with arrest earlier in this admission. Angiography without CAD noted. Normal LVEF appreciated. Plan: Would continue medical therapy. Recommendations for ETOH cessation. Would maintain therapy on Amiodarone given the arrest that was noted - this therapy can be discussed in the outpatient setting as far as cessation recommendations. Would maintain outpatient follow up with cardiology in 5-7 days. Intervention: none Patient Problems: Problems Problem Status Onset Atrial fibrillation with RVR Acute Cardiac arrest Acute Vomiting Acute Abdominal pain Acute Alcohol abuse Acute Alcohol intoxication Acute Alcohol withdrawal Acute Alcohol withdrawal Acute Ankle fracture Acute Atrial fibrillation Acute C. difficile diarrhea Acute 09/23/16 GI bleed Acute Nausea & vomiting Acute Nausea and vomiting in adult Acute
[2017-06-12] MEDS ORDERED: ONDANSETRON 4 MG/2 ML VIAL IVP PRN (12:01)
[2017-06-12] MEDS ORDERED: ATROPINE SULFATE 1 MG/10 ML SYR IVP PRN (12:01)
[2017-06-12] MEDS: FUROSEMIDE 20 MG/2 ML VIAL IVP SCH ×2 (15:12→16:00)
[2017-06-12] MEDS: LIDOCAINE 5% 1 EA PATCH TD SCH (15:12)
[2017-06-12] MEDS: FERROUS SULFATE 140 MG TAB.ER PO SCH ×2 (15:12→16:01)
[2017-06-12] MEDS: SPIRONOLACTONE 50 MG TAB PO SCH (15:13)
[2017-06-12] MEDS: THIAMINE HCL 100 MG TAB PO SCH ×2 (15:13→16:01)
--- NOTE | 2017-06-12 17:40 | ASMTCMCOM ---
CM Note CM Note Notes: 06/12/2017 Case Management Note Met w/ pt to discuss d/c options. Pt has to private pay for SNF stay d/t to denial of residential medicaid application. [facility] charges $9000/month for room and board only. Pt will have to pay extra for PT and OT. Pt declined this option. [facility] charges $317/day for a shared room with O2 costing and additionl $8/day. Pt declined this option. Pt plans to hire [facility] unskilled care and case management will arrange [facility] home care for skilled care. Pt wishes to remain sober and expresses feeling successful after achieving 3 weeks of sobriety without any cravings currently. Pt requests a transition social worker with her home visitor home base head start PT OT and EMPLOYEE RELATIONS DIRECTOR. Case Management to follow. Date Signed: 06/12/2017 05:38 PM Electronically Signed By:Marlena Sandoval RN
--- NOTE | 2017-06-12 19:14 | HOSPPROG ---
Hospitalist Progress Note Assessment/Plan: DIAGNOSES: * Cardiac arrest s/p HACA -suspect respiratory cause (aspiration) -cardiac cath 06/12 with no significant atherosclerosis -no ventricular arrhythmias here and no bradycardias * Afib -amiodarone (takes diltiazem at home) -off anticoag in past due to alcoholism and multiple falls with injuries; may need to reconsider if she can commit to improve lifestyle issues and compliance in future * Acute hypoxemic respiratory failure, multifactorial -extubated -history of COPD, pulmonary hypertension noted on current echo; current asp pneumonia * acute diastolic congestive heart failure -very close to her dry weight after ongoing use of diuretic here in the hospital * Aspiration PNA -has completed course of invanz and doing well * Small volume PE -unclear clinical significance; no DVTs on ultrasound -high risk anti-coagulation given severe thrombocytopenia, alcoholism and fall risk so has not been treated yet here with anticoagulation; further discussion of the platelets are up * Severe chest wall pain post CPR -continue Lidoderm patch at this time, which is helping * Thrombocytopenia - baseline platelets are near normal -now resolved, suspect due to alcohol * Etoh long hx of binges with intake of 1 liter Vodka daily; hx of cirrhosis -lasix + aldactone -has not had any withdrawal here * h/o GIB due toMW tear + gastric ulcer -PPI + carafate; Now that she is diuresed, beginning to walk a bit, and her angiogram show no coronary arteries, she is probably medically stable for discharge but the so she will and discharge issues are holding her up at this point. The issue is she has no Medicaid coverage for senior care facility and will therefore need to be able to go probably to her home with home care unless we can come up with another a plan. Case management working on this but she is not yet quite ambulating safely to go to her house. Does have a recent ankle fracture from a fall and still wearing a boot from that and using a walker SUBJECTIVE: Ribcage pain getting better using Lidoderm and cold packs on her chest Not short of breath at this time and nothing that sounds like angina Tolerating diuretics better at this time Has not walked today largely due to effects of sedation medicines from her angiogram OBJECTIVE Vitals reviewed: Overall stable with no fevers Ladle Pourer, my review: All sinus rhythm Exam: alert oriented skin warm dry color ok resps fairly labored at rest in bed with oxygen lungs diminished BSs with diffuse rhonchi heart regular abd soft nondistended nontender, bowel sounds present limbs warm, edema is somewhat decreased in legs today iv site ok Laboratory data: CBC and Chem panel stable today Coronary angiography free today discussed with Cardiology, no atherosclerosis of significance Objective: Vital Signs Temp Pulse Resp BP Pulse Ox 36.7 C 65 17 110/61 100 06/12/17 16:23 06/12/17 16:23 06/12/17 16:23 06/12/17 16:23 06/12/17 16:23 Laboratory Results 06/12/17 04:10 06/12/17 04:10 06/11/17 06/12/17 06/13/17 06:59 06:59 06:59 Intake Total 400 1950 200 Output Total 800 250 450 Balance -400 1700 -250 PT 14.4 SEC (12.0-15.0) 06/12/17 04:10 INR 1.10 (0.83-1.16) 06/12/17 04:10 - Time Spent With Patient Time Spent with Patient: greater than 35 minutes Time Spent with Patient: Greater than 35 minutes spent on this patients care, greater than 50% of time spent counseling, educating, and coordinating care regarding the above mentioned plan. ICD10 Worksheet Patient Problems: Problems Problem Status Onset Atrial fibrillation with RVR Acute Cardiac arrest Acute Vomiting Acute Abdominal pain Acute Alcohol abuse Acute Alcohol intoxication Acute Alcohol withdrawal Acute Alcohol withdrawal Acute Ankle fracture Acute Atrial fibrillation Acute C. difficile diarrhea Acute 09/23/16 GI bleed Acute Nausea & vomiting Acute Nausea and vomiting in adult Acute
[2017-06-12] MEDS: METHOCARBAMOL 500 MG TAB PO SCH (20:55)
[2017-06-12] MEDS: GABAPENTIN 100 MG CAP PO SCH (20:55)
[2017-06-12] MEDS: traZODone 50 MG TAB PO SCH (20:56)
[2017-06-12] MEDS: PATCH REMOVAL 1 EA PATCH TD SCH (21:05)
[2017-06-13] MEDS: SUCRALFATE 1 GM TAB PO SCH ×4 (05:32→20:14)
[2017-06-13] MEDS: LEVOTHYROXINE 112 MCG TAB PO SCH (07:40)
[2017-06-13] MEDS: FERROUS SULFATE 140 MG TAB.ER PO SCH (07:40)
[2017-06-13] MEDS: SPIRONOLACTONE 50 MG TAB PO SCH (07:41)
[2017-06-13] MEDS: FUROSEMIDE 20 MG/2 ML VIAL IVP SCH (07:41)
[2017-06-13] MEDS: AMIODARONE HCL 200 MG TAB PO SCH (07:41)
[2017-06-13] MEDS: SERTRALINE HCL 100 MG TAB PO SCH (07:41)
[2017-06-13] MEDS: PANTOPRAZOLE SODIUM 40 MG TAB PO SCH ×2 (07:41→20:14)
[2017-06-13] MEDS: LIDOCAINE 5% 1 EA PATCH TD SCH (07:42)
[2017-06-13] MEDS: THIAMINE HCL 100 MG TAB PO SCH (07:42)
[2017-06-13] MEDS: SENNOSIDES/DOCUSATE SODIUM TAB PO SCH ×2 (07:47→20:14)
[2017-06-13] MEDS ORDERED: MAGNESIUM SULF 1 GM/DEXTROSE 100 ML IV ONE (08:12)
--- NOTE | 2017-06-13 11:24 | PDCARPN ---
Cardiology Progress Note Chief Complaint: No cardiovascular complaints today. No groin tenderness noted (POD#1 for angiography) Assessment/Plan: Assessment: Patient is a 61 y/o female with history of pAF, alcohol abuse, and arrest ( asystole in the ER) with noted/documented VF. Pneumonia was primary event, and there was speculation that events were secondary to primary respiratory etiology. Given age and arrhythmia, angiography was performed yesterday. Normal left ventricular systolic function was noted. No coronary atherosclerotic disease was noted. No cardiovascular complaints today - no chest pains or pressure. No PND or orthopnea. Overall, patient feeling very well today. Plan: (1) Would maintain therapy on Aldactone for HTN history (2) Would have patient seen by PCP in <7 days (3) Amiodarone was started in the acute setting. Would continue this therapy for one month total. Outpatient discussion about half-way use of this therapy is needed. (4) Would arrange for 30 day Prevent[employer] monitor given the history of pAF and, if present, a CVA risk ([id number] score is 2 for sex and HTN history) Subjective: No cardiovascular complaints Reviewed/Discussed With: hospitalist Objective: Vital Signs (8 Hrs) Temp Pulse Resp BP Pulse Ox 06/13/17 11:07 37.1 C 71 18 96/56 L 100 06/13/17 08:00 37.2 C 73 14 104/52 L 100 06/13/17 04:48 36.7 C 72 17 102/67 95 Intake/Output (24 Hrs) 06/12/17 06/13/17 06/14/17 05:59 05:59 05:59 Intake Total 1950 400 Output Total 250 450 Balance 1700 -50 Intake: Oral (ml) 1950 400 IV Intake (ml) 0 Output: Urine (ml) 250 450 Bedside Commode 250 450 Other: Weight 58.1 kg 59.4 kg Number of Voids Bedside Commode 1 1 Incontinence 1 1 Toilet 2 1 Number of Stools Bedside Commode 1 Toilet 1 1 Result Diagrams: 06/12/17 04:10 06/13/17 05:40 Telemetry: normal sinus rhythm - Physical Exam Constitutional: WDWN, healthy appearing, no apparent distress Eyes: PERRL, EOMI Ears, Nose, Mouth, Throat: moist mucous membranes Cardiovascular: regular rate and rhythm, no murmurs, no rubs Peripheral Pulses: 2+: femoral (R) (mild tenderness to the cath access site), dorsalis-pedis (R), dorsalis-pedis (L) Respiratory: clear to auscultate bilat, no crackles, no wheezes Gastrointestinal: normoactive bowel sounds Skin: no edema Musculoskeletal: no muscular tenderness Neurologic: AAOx3, CN II-XII grossly intact Psychiatric: cooperative, interactive, following commands ICD10 Worksheet Patient Problems: Problems Problem Status Onset Atrial fibrillation with RVR Acute Cardiac arrest Acute Vomiting Acute Abdominal pain Acute Alcohol abuse Acute Alcohol intoxication Acute Alcohol withdrawal Acute Alcohol withdrawal Acute Ankle fracture Acute Atrial fibrillation Acute C. difficile diarrhea Acute 09/23/16 GI bleed Acute Nausea & vomiting Acute Nausea and vomiting in adult Acute
--- NOTE | 2017-06-13 11:36 | HOSPPROG ---
Hospitalist Progress Note Assessment/Plan: 61 yo F w alcoholism, falls admitted w vomiting and subsequent cardiac arrest 2/ 2 hypoxemia. cardiac arrest: reasonably attributed to aspiration cath normal s/p HACA alert falls: in seeting of alcoholism this likely precludes safe anticoag PE: small so far, not anticoagulated 2/2 thrombocytopenia, whichh has improved no DVT repeat limited echo to eval RVSP alcoholism: past withdrawal liver disease: on diuretics dispo: needs snf but no payer source dispo: inpt Subjective: clean cath. d/w dr kumar Objective: Vital Signs Temp Pulse Resp BP Pulse Ox 37.1 C 71 18 96/56 L 100 06/13/17 11:07 06/13/17 11:07 06/13/17 11:07 06/13/17 11:07 06/13/17 11:07 Laboratory Results 06/12/17 04:10 06/13/17 05:40 06/12/17 06/13/17 06/14/17 05:59 05:59 05:59 Intake Total 1950 400 Output Total 250 450 Balance 1700 -50 PT 14.4 SEC (12.0-15.0) 06/12/17 04:10 INR 1.10 (0.83-1.16) 06/12/17 04:10 - Physical Exam Constitutional: no apparent distress, appears nourished Ears, Nose, Mouth, Throat: moist mucous membranes, hearing normal Cardiovascular: regular rate and rhythym, systolic murmur Respiratory: no respiratory distress, no rales or rhonchi Gastrointestinal: normoactive bowel sounds, soft, non-tender abdomen Genitourinary: no bladder fullness, No nicole in urethra Skin: warm, normal color Musculoskeletal: full muscle strength Neurologic: AAOx3 ICD10 Worksheet Patient Problems: Problems Problem Status Onset Atrial fibrillation with RVR Acute Cardiac arrest Acute Vomiting Acute Abdominal pain Acute Alcohol abuse Acute Alcohol intoxication Acute Alcohol withdrawal Acute Alcohol withdrawal Acute Ankle fracture Acute Atrial fibrillation Acute C. difficile diarrhea Acute 09/23/16 GI bleed Acute Nausea & vomiting Acute Nausea and vomiting in adult Acute
--- NOTE | 2017-06-13 14:58 | ASMTCMCOM ---
CM Note CM Note Notes: 06/13/2017 Case Management Note Notified by [facility] that they are unwilling to take patient back on service even with a behavior contract. Faxed referrals to multiple home care agencies. Several have declined pt d/t Medicaid Insurance. Contacted Haw[facility] Am[facility] case management assistant to inquire re: HCBS Medicaid Services. Pt is considered over assets for HCBS as well as Wall Covering Contractor Medicaid. Case Management d/c poc: [facility] 24 hour care arranged by pt and tractor driver teamster PT OT SW and RADIO INTELLIGENCE OPERATOR once accepted by an agency. Case Managemen to follow. Date Signed: 06/13/2017 02:27 PM Electronically Signed By:Marlena Sandoval RN
[2017-06-13] MEDS: OXYCODONE/APAP 5/325 TAB PO PRN (16:02)
--- NOTE | 2017-06-13 17:13 | ECHO ---
[email or web address] [address] [address] Main: [phone] Fax: Transthoracic Echocardiogram Name: SAIRA RAHMAN MR#: [id number] Study Date: 06/13/2017 Study Time: 12:00 PM Date of : 1955 Age: 61 year(s) Height: 167.6 cm (66 in.) Weight: 58.97 kg (130 lb.) BSA: 1.67 m2 Gender: Female Examination: Indication: Eval RVSP limited echo Image Quality: Contrast: Requested by: Shahzad Mireles BP: / Heart Rate: Rhythm: Indication: Eval RVSP limited echo Procedure Staff Project Management Engineer: Bart Mendoza RDCS Reading Physician: Nolan Sands Requesting Provider: Conclusions: This is a limited echo to evaluate LV function and RVSP. There is normal LV function with no wall motion abnormalitys. Normal RVSP with normal RV function.. Measurements: Chambers Valvular Assessment AV/MV Valvular Assessment TV/PV Normal Normal Normal Name Value Range Name Value Range Name Value Range TR Vmax: 1.28 mm/s ( - ) TR PGmax: 7 mmHg ( - ) syst. PAP: 12 mmHg ( - ) Continued Measurements: Valvular Assessment TV/PV Name Value CVP (est.): 5 mmHg Findings: Exam Comments: This is a limited echo to evaluate LV function and RVSP. There is normal LV function with no wall motion abnormalitys. Normal RVSP with normal RV function.. (No Signature Object) Patient: SAIRA RAHMAN Study Date: 06/13/2017 Page 1 of 2 12:00 PM Patient: SAIRA RAHMAN Study Date: 06/13/2017 Page 2 of 2 12:00 PM [id number]
[2017-06-13] MEDS: METHOCARBAMOL 500 MG TAB PO SCH (20:13)
[2017-06-13] MEDS: PATCH REMOVAL 1 EA PATCH TD SCH (20:13)
[2017-06-13] MEDS: GABAPENTIN 100 MG CAP PO SCH (20:13)
[2017-06-13] MEDS: traZODone 50 MG TAB PO SCH (20:23)
[2017-06-14] MEDS: SUCRALFATE 1 GM TAB PO SCH ×2 (04:32→13:26)
[2017-06-14] MEDS: LEVOTHYROXINE 112 MCG TAB PO SCH (08:22)
[2017-06-14] MEDS: PANTOPRAZOLE SODIUM 40 MG TAB PO SCH (08:23)
[2017-06-14] MEDS: SERTRALINE HCL 100 MG TAB PO SCH (08:23)
[2017-06-14] MEDS: FERROUS SULFATE 140 MG TAB.ER PO SCH (08:23)
[2017-06-14] MEDS: SENNOSIDES/DOCUSATE SODIUM TAB PO SCH (08:24)
[2017-06-14 08:27] VITALS: BP 105/57; PULSE 72; RESP 18; TEMP 99.4
[2017-06-14] MEDS: SPIRONOLACTONE 50 MG TAB PO SCH (08:30)
[2017-06-14] MEDS: THIAMINE HCL 100 MG TAB PO SCH (08:30)
[2017-06-14] MEDS ORDERED: LIDOCAINE 4%/MENTHOL 1% PATCH TD SCH (09:00)
[2017-06-14] MEDS ORDERED: AMIODARONE HCL 200 MG TAB PO SCH (09:00)
[2017-06-14] MEDS: FUROSEMIDE 20 MG/2 ML VIAL IVP SCH (09:02)
--- NOTE | 2017-06-14 13:06 | PDIAF ---
- Diagnosis Diagnosis: cardiac arrest Code Status: Full Code - Medication Management Discharge Medications: Medications to Continue on Transfer Ascorbic Acid [Vitamin C 500 mg (*)] 1,000 mg PO DAILY 03/27/17 [Last Taken 08:00] Acetaminophen [Tylenol 325mg (*)] 650 mg PO Q4HRS PRN tab 05/08/17 [Last Taken 05/12/17 21:00] Ferrous Sulfate [Slow Fe 140 MG (*)] 140 mg PO DAILY #30 tab.er 05/08/17 [Last Taken 05/12/17 08:00] LORazepam [Ativan (*)] 0.5 mg PO Q4HRS PRN #10 tab 05/08/17 [Last Taken Unknown] Levothyroxine [Synthroid 112 mcg (*)] 112 mcg PO DAILY #30 tab 05/08/17 [Last Taken 05/06/17] Pantoprazole Sodium [Protonix 40mg (*)] 40 mg PO BID #60 tab 05/08/17 [Last Taken 05/12/17 22:00] Sertraline HCl [Zoloft 100mg (*)] 100 mg PO DAILY #30 tab 05/08/17 [Last Taken 05/12/17 08:00] Methocarbamol [Robaxin 500 mg (*)] 1,000 mg PO HS 05/13/17 [Last Taken 05/12/17 22:00] Calcium Carb W/Vit D [Calcium Carb W/Vit D 500/200 (*)] 500 mg PO BID 05/31/17 [ Last Taken Unknown] Diltiazem Xr [Dilacor Xr] 240 mg PO DAILY 05/31/17 [Last Taken Unknown] Gabapentin [Neurontin 100 MG (*)] 100 mg PO HS 05/31/17 [Last Taken Unknown] Sucralfate [Carafate 1 GM (*)] 1 gm PO QID 05/31/17 [Last Taken Unknown] traZODone [traZODONE 50MG (*)] 50 mg PO HS 05/31/17 [Last Taken Unknown] Discharge Medications: Refer to the Discharge Home Medication list for PRN reason. - Orders Services needed: Home Care, Physical Therapy, Occupational Therapy Home Care Face to Face: I certify that this patient was under my care and that I had the required [id number] encounter meeting the encounter requirements on the discharge day. My findings support the fact that the patient is homebound as defined in Home Care Face to Face Continued: CMS Chapter 7 Medicare Benefits Manual 30.1.1 , The condition of the patient is such that there exists a normal inability to leave home and consequently, leaving home would require a considerable and taxing effort. Isolation Type: None Diet Texture: Regular Texture Diet, Thin Liquids, Meds Whole w/Liquids - Follow Up Care Current Providers and Referrals: NONE *PRIMARY CARE P,. [Primary Care Provider] - As per Instructions
[2017-06-14 13:17] VITALS: O2SAT 87
--- NOTE | 2017-06-14 13:23 | PDHOMEO2F ---
Home Oxygen Face to Face Home Orders: I certify that a physician or a nurse practitioner or physician's economist research assistant has had a [id number] encounter with this patient on the date of this order due to the diagnosis listed, which relates to the primary reason the patient requires home oxygen. Alternative treatments have been tried, or considered, and deemed ineffective. It is anticipated that supplemental oxygen will result in improvement with treatment. Home oxygen qualifying diagnosis: pneumonia SpO2 on room air (%): 87 Frequency of home oxygen needed: continuous Home oxygen liters per minute: 2 Home oxygen delivery device: nasal cannula Concentrator: No E-tanks for mobility and back up: Yes If ordering portable O2, is the patient mobile in the home?: Yes I certify that, based on these findings, the home oxygen is medically necessary for this patient for the following length of time. Length of time home oxygen needed: 1 month
--- NOTE | 2017-06-14 13:26 | HOSPPROG ---
Hospitalist Progress Note Assessment/Plan: 61 yo F w alcoholism, falls admitted w vomiting and subsequent cardiac arrest 2/ 2 hypoxemia. cardiac arrest: reasonably attributed to aspiration cath normal s/p HACA alert falls: in seeting of alcoholism this likely precludes safe anticoag PE: small so far, not anticoagulated 2/2 thrombocytopenia, which has improved no DVT w normal RVSP no anticoag given frequent falls alcoholism: past withdrawal liver disease: on diuretics dispo: needs snf but no payer source dispo: home today w home care > 30 minutes on dc Subjective: repeat echo w normal RVSP Objective: Vital Signs Temp Pulse Resp BP Pulse Ox 37.4 C 72 18 105/57 L 87 L 06/14/17 08:00 06/14/17 08:00 06/14/17 08:00 06/14/17 08:00 06/14/17 13:16 Laboratory Results 06/12/17 04:10 06/13/17 05:40 06/13/17 06/14/17 06/15/17 05:59 05:59 05:59 Intake Total 400 502 Output Total 450 600 Balance -50 -98 PT 14.4 SEC (12.0-15.0) 06/12/17 04:10 INR 1.10 (0.83-1.16) 06/12/17 04:10 - Physical Exam Constitutional: no apparent distress, appears nourished Eyes: PERRL, anicteric sclera Ears, Nose, Mouth, Throat: moist mucous membranes, hearing normal Cardiovascular: regular rate and rhythym, no murmur, rub, or gallop Respiratory: no respiratory distress, no rales or rhonchi Gastrointestinal: normoactive bowel sounds, no palpable masses Genitourinary: No nicole in urethra Skin: warm, normal color Musculoskeletal: full muscle strength, no muscle tenderness Neurologic: AAOx3 Psychiatric: interacting appropriately, not anxious Lymph, Heme, Immunologic: no cervical LAD ICD10 Worksheet Patient Problems: Problems Problem Status Onset Atrial fibrillation with RVR Acute Cardiac arrest Acute Vomiting Acute Abdominal pain Acute Alcohol abuse Acute Alcohol intoxication Acute Alcohol withdrawal Acute Alcohol withdrawal Acute Ankle fracture Acute Atrial fibrillation Acute C. difficile diarrhea Acute 09/23/16 GI bleed Acute Nausea & vomiting Acute Nausea and vomiting in adult Acute
--- NOTE | 2017-06-14 15:51 | ASMTCMCOM ---
CM Note CM Note Notes: Call from [facility] in [place] regarding becoming patient's PCP. They referred to letters sent by patient's old PCP at [place] in January 2017 discharging patient from their care and recommending that she follow up with [facility]. I relayed this information to patient who initially said that she did not want to go to [facility] but then agreed to. I made her an appointment at the [facility] 06/18 @ 7534. Her friend was in the room when I relayed this information, as was the liason from [facility]. [facility] will contact [facility] for home care orders. Date Signed: 06/14/2017 03:50 PM Electronically Signed By:Jackie Magana RN
--- NOTE | 2017-06-14 16:27 | ASDISCHSUM ---
Discharge Information Plan Status:SNF Medically Cleared to Leave:06/13/2017 Discharge Date:06/14/2017 04:00 PM D/C Disposition:Intermediate Facility ADT D/C Disposition:Home, Routine, Self-Care Projected Discharge Date:06/14/2017 11:00 AM Transportation at D/C: Discharge Delay Reason: Follow-Up Date:06/14/2017 11:00 AM Discharge Slot: Final Diagnosis:N/V, Cardiac arrest, ETOH abuse Placement Information Referral Type:*Half-Way/SNF Referral ID:[id number] Provider Name: Address 1: Phone Number: Address 2: Fax Number: City: Selection Factors: State: Referral Type:*Half-Way/SNF Referral ID:[id number] Provider Name: Address 1: Phone Number: Address 2: Fax Number: City: Selection Factors: State: Referral Type:*Home Health Care Services Ref[facility] ID:[id number] [facility]) Address 1:[address] [address] Address 2: City:[place] Selection Factors: State:[place] Patient Contact Information Contact Name:BATSHEVA Relationship:Friend Address: Work Phone: City: [facility] Phone: [facility] Code: Email: Financial Information Financial Class:Medicaid Primary Plan Desc:[facility] Primary Plan Number:[id number] Secondary Plan Desc: Secondary Plan Number: Assessment Information [facility] CM Progress Note CM Note CM Note Notes: Patient presented to the ED (has upwards of 30 visits in the last year) for persistent vomiting following binge drinking. She went into cardiac arrest during a coughing spell. CPR was initiated, she was intubated, and the HACA protocol was initiated. She is currently intubated and sedated in the ICU. I called and left a message for her sister (friend?) Renay. Discharge needs are unknown. Date Signed: 05/31/2017 12:25 PM Electronically Signed By:Jackie Magana RN [facility] Progress Note CM Note CM Note Notes: Patient's friend (not her sister) Renay called yesterday. She was about to board a boat in [place] for a 2 week cruise. She made it clear that she is not patient's MDPOA or proxy. She also said she will be unable to be contacted by phone while on the cruise but would appreciate communication by email ([email or web address]). She said that patient does have an estranged daughter - Milton - for whom no one has contact information. Based on the above (and patient's extensive history of hospitalizations, readmissions, and failed discharge plans), I ordered an Ethics consult. Shivani Lance, director of Case Management, notified of patient's admission. CM will follow. Date Signed: 06/01/2017 08:59 AM Electronically Signed By:Jackie Magana RN [facility] Progress Note CM Note CM Note Notes: Patient lives alone. According to Therapy, patient needs SNF but has denied in the past. She has a sister and daughter who are estranged. Her hx of ETOH abuse enhances her medical needs. She has an old injury fx ankle and now rib fxs. [facility] Date Signed: 06/04/2017 04:19 PM Electronically Signed By:Candis Mejia LCSW [facility] Progress Note CM Note CM Note Notes: Patient agrees to go to SNF Rehab, prefers to go to [facility]. Patient has referrals sent to [facility], [facility]. Cog eval 11 out of 30. She would prefer having friend Renay Carbone make Med Decisions or Renay's but Renay is presently on a cruise off [place]. UL-100 faxed to [facility] today. Patient's friend Ildefonso Lopez [phone]; Address [address] , [address], [place] [address] stated that he would be her Medical Proxy. When I asked patient about Ildefonso, she said that "he won't come to the hospital", She preferred Renay. Date Signed: 06/05/2017 05:10 PM Electronically Signed By:Candis Mejia LCSW [facility] Progress Note CM Note CM Note Notes: SKYLAR received a call from Odilon from [facility]. Odilon reports that a sales representative printing paper came out to assess pt on 06/03/17 and pt had declined to go to SNF for 30 days at that time. SKYLAR met w/ pt for dispo planning. Pt is now agreeable to the 30 day stay. SKYLAR left a msg for Odilon requesting another sales representative printing paper come out to assess. SKYLAR spoke w/ [employer] and they report that pt is over income to qualify for Medicaid LTC. [facility] is unable to accept pt at this time due ACC Medicaid only instead of LTC Medicaid. [facility] is willing to accept. CM to follow. Plan: SNF pending 30 day approval from [facility] Date Signed: 06/06/2017 01:21 PM Electronically Signed By:HERRERA Ashley [facility] CM Progress Note CM Note CM Note Notes: 06/08/2017 Case Management Note Pt was assessed today by Hawa Amador from [facility] today. She was approved for SNF rehab but triggered a PASSR review. PASSR won't be reviewed until Sunday by OBRA coordinator. Pt has not been accepted to a SNF rehab yet. [facility] not [facility] pts currently d/t influenza in the facility. Will recheck with [facility] early next week. [facility] declined pt and [facility] is considering pt. Case Management d/c poc: SNF pending acceptance and completion of ULTC 100 process. Case Management to follow. Date Signed: 06/08/2017 02:57 PM Electronically Signed By:Marlena Sandoval RN [facility] CM Progress Note CM Note CM Note Notes: 06/11/2017 Case Management Note Case Management received phone call from Marilyn notifying case management that pt has been accepted to [facility] rehab. Notified RN and . Provided info on facility to pt. Pt is in agreement for 30 day stay. Pt requested stop at home when d/c. Informed pt that was not possible for liability reasons and that transportation will be arranged by [facility] directly from [facility] to [facility]. Case Management d/c poc: To [facility] when medically stable. Case Management to follow. Date Signed: 06/11/2017 12:48 PM Electronically Signed By:Marlena Sandoval RN [facility] Progress Note CM Note CM Note Notes: 06/12/2017 Case Management Note Met w/ pt to discuss d/c options. Pt has to private pay for SNF stay d/t to denial of intermodal customer service medicaid application. [facility] charges $9000/month for room and board only. Pt will have to pay extra for PT and OT. Pt declined this option. [facility] charges $317/day for a shared room with O2 costing and additionl $8/day. Pt declined this option. Pt plans to hire [facility] unskilled care and case management will arrange [facility] home care for skilled care. Pt wishes to remain sober and expresses feeling successful after achieving 3 weeks of sobriety without any cravings currently. Pt requests a rn social services with her home restoration service cleaner PT OT and HEMATOLOGY NURSE EDUCATOR. Case Management to follow. Date Signed: 06/12/2017 05:38 PM Electronically Signed By:Marlena Sandoval RN [facility] Progress Note CM Note CM Note Notes: 06/13/2017 Case Management Note Notified by [facility] that they are unwilling to take patient back on service even with a behavior contract. Faxed referrals to multiple home care agencies. Several have declined pt d/t Medicaid Insurance. Contacted Hawa Amador [facility] case finisher to inquire re: HCBS Medicaid Services. Pt is considered over assets for HCBS as well as [employer] Medicaid. Case Management d/c poc: [facility] 24 hour care arranged by pt and core assembly supervisor PT OT SW and MARIO once accepted by an agency. Case Managemen to follow. Date Signed: 06/13/2017 02:27 PM Electronically Signed By:Marlena Sandoval RN [facility] CM Progress Note CM Note CM Note Notes: Call from [facility] in [place] regarding becoming patient's PCP. They referred to letters sent by patient's old PCP at [place] in January 2017 discharging patient from their care and recommending that she follow up with [facility]. I relayed this information to patient who initially said that she did not want to go to [facility] but then agreed to. I made her an appointment at the [facility] [address] 06/18 @ 1611. Her friend was in the room when I relayed this information, as was the liason from [facility]. [facility] will contact [facility] [address] for home care orders. Date Signed: 06/14/2017 03:50 PM Electronically Signed By:Jackie Magana RN Case Management Discharge Plan Note Case Management Discharge Discharge Order Complete? Answers: Yes Patient to Obtain Answers: Independently Medications Transportation Arranged Answers: Family/Friends EMTALA Complete Answers: No Case Management Transport Answers: Yes Form Complete Faxed Final Orders Answers: Yes Agency/Facility Transfer Answers: Yes Report Printed & Faxed to Receiving Agency Family Notified Answers: No Discharge Comments Notes: Pt is being discharged today. Pts friend will be bringing her home. Pt will d/c with [facility], RN, PT and OT. Cindy from [facility] came and spoke w/ pt today. CM met w/ pt for dispo planning. CM encouraged pt to set up unskilled HC while in the hospital. Pt started getting tearful and stated that it was too much pressure. Pt reports that she will set up unskilled HC when she returns home. CM available for changes. Plan: [facility]; RN, PT, OT with unskilled HC Date Signed: 06/14/2017 04:26 PM Electronically Signed By:HERRERA Ashley Intervention Information
--- NOTE | 2017-06-14 17:34 | GDS ---
[f rep st] DISCHARGE SUMMARY DISCHARGE DIAGNOSES: 1. Cardiac arrest, status post hypothermia after cardiac arrest protocol with good neurologic outcom e. This was felt secondary to aspiration pneumonia. 2. Aspiration pneumonia, status post course of antibiotics. 3. History of paroxysmal atrial fibrillation. 4. History of alcoholism. 5. Cirrhosis without seen on imaging. 6. Tiny pulmonary embolism without right heart strain. 7. Thrombocytopenia. 8. Acute hypoxemic respiratory failure. 9. Falls. 10. History of liver disease. HOSPITAL COURSE: The patient was admitted on the evening of the . She came in. She actually trinidad d an asystolic arrest secondary to severe left-sided pneumonia that was felt to be aspiration in natu re with hypoxemia. She was intubated and placed on the HACA protocol. The patient did well followin g rewarming. Ultimately, she had a coronary angiogram revealing no evidence of coronary artery disea se. She received amiodarone. She was treated with antibiotics for her on aspiration pneumonia. The patient became volume overloaded, received a course of diuretics while here. She did have ascite s. She was refusing diuretics, and is not sent home on them. On day 6, about a week into her hospit alization, she had a CTA of the chest showing small volume left upper lobe and right lower lobe pulmo nary emboli. This was because of persistent severe chest pain. The patient at that time was thrombo cytopenic, and anticoagulation was not started. She had an echocardiogram earlier in the hospitaliza ti, and she had a slightly elevated RVSP of 43. It is repeated today prior to discharge and felt t o be normal. Given her history of thrombocytopenia, which it actually resolved by the time of discha rge, but also history of alcohol binging with falls, it was felt that anticoagulation was unsafe on h er and, therefore, not continued. The patient was recommended for SNF, but she used up her SNF days via her benefits, and was discharge d home with home care. Discharge medicines remain unchanged. /[id number]/MODL
== END 2017-06-14 16:00 | disposition home or self-care (01) | DRG 208 ==
LOC: F2N 23:53 → F2W 06-05 15:08
PROVIDERS: ADMIT Student in an Organized Health Care Education/Training Program; ATTEND Student in an Organized Health Care Education/Training Program
PROC: 0BH17EZ Insertion of Endotracheal Airway into Trachea, Via Natural or Artificial Opening (ICD-10-PCS; 2017-05-30)
PROC: 5A1935Z Respiratory Ventilation, Less than 24 Consecutive Hours (ICD-10-PCS; 2017-05-30)
PROC: 02HV33Z Insertion of Infusion Device into Superior Vena Cava, Percutaneous Approach (ICD-10-PCS; 2017-06-02)
PROC: 30233R1 Transfusion of Nonautologous Platelets into Peripheral Vein, Percutaneous Approach (ICD-10-PCS; 2017-06-02)
PROC: B2151ZZ Fluoroscopy of Left Heart using Low Osmolar Contrast (ICD-10-PCS; principal; 2017-06-12)
PROC: 4A023N7 Measurement of Cardiac Sampling and Pressure, Left Heart, Percutaneous Approach (ICD-10-PCS; principal; 2017-06-12)
PROC: B2111ZZ Fluoroscopy of Multiple Coronary Arteries using Low Osmolar Contrast (ICD-10-PCS; principal; 2017-06-12)
DX: J69.0 Pneumonitis due to inhalation of food and vomit (principal); I46.8 Cardiac arrest due to other underlying condition; I26.99 Other pulmonary embolism without acute cor pulmonale; J96.01 Acute respiratory failure with hypoxia; I48.0 Paroxysmal atrial fibrillation; K70.31 Alcoholic cirrhosis of liver with ascites; D69.6 Thrombocytopenia, unspecified; R29.6 Repeated falls; F10.20 Alcohol dependence, uncomplicated; E03.9 Hypothyroidism, unspecified; R40.2432 Glasgow coma scale score 3-8, at arrival to emergency department; R68.0 Hypothermia, not associated with low environmental temperature; D64.89 Other specified anemias
CPT/HCPCS: 80307; 82947-QW; 92507-GN; 92523-GN; 92526-GN; 92610-GN; 96365; 97116-GP; 97163-GP; 97166-GO; 97530-GO; 97530-GP; 97535-GO; C1751; C1760; G0472; G0480; J0282; J0610; J1160; J1335; J1644; J1815; J1940; J2250; J2370; J2405; J2704; J3010; J3411; J3475; J3480; P9035; Q9967; Q9987

== ENCOUNTER 2017-06-25 03:13 | Observation (INO) | payer MEDICAID ==
--- NOTE | 2017-06-25 03:25 | CPEKG ---
Heart Rate: 157 RR Interval: 382 QRSD Interval: 64 QT Interval: 300 QTC Interval: 485 QRS Wickes: -7 T Wave Wickes: 40 EKG Severity - ABNORMAL ECG - EKG Impression: A-FLUTTER W/ VARIED AV BLOCK, A-RATE 294 Electronically Signed By: Deandre Dewey 25-Jun-2017 03:38:35
[2017-06-25] MEDS ORDERED: DILTIAZEM 25 MG/5 ML VIAL IVP ONE ×2 (03:32→04:08)
[2017-06-25] MEDS ORDERED: NS 1,000 ML IV ONE (03:32)
[2017-06-25] MEDS ORDERED: ASPIRIN 81 MG CHEWABLE TAB PO ONE (03:32)
--- NOTE | 2017-06-25 03:36 | EDPHY ---
H & P Stated Complaint: substernal CP Time Seen by Provider: 06/25/17 03:26 HPI/ROS: CHIEF COMPLAINT: Palpitations HISTORY OF PRESENT ILLNESS: Patient is a 61-year-old female who is seen here frequently for atrial fibrillation. She also has a history of alcohol abuse and withdrawal. She was admitted at the beginning of this month after an aspiration event she had in the ER that resulted in cardiac arrest and cooling and while in the hospital developed a PE. She remains a poor candidate for anticoagulation because of her history of alcoholism and falls and previous bleeding events. She is not anticoagulated. She states that about 6 hr ago she began having palpitations consistent with her frequent atrial fibrillation. No shortness of breath. She states that she has been nauseous and vomiting for the last 2 days and been unable to take her diltiazem or other medications. She denies abdominal pain. No diarrhea. REVIEW OF SYSTEMS: Constitutional: denies: chills, fever, recent illness, recent injury EENTM: denies: blurred vision, double vision, nose congestion Respiratory: denies: cough, shortness of breath Cardiac: See HPI Gastrointestinal/Abdominal: See HPI Genitourinary: denies: dysuria, frequency, hematuria, pain Musculoskeletal: denies: joint pain, muscle pain Skin: denies: lesions, rash, jaundice, bruising Neurological: denies: headache, numbness, paresthesia, tingling, dizziness, weakness Hematologic/Lymphatic: denies: blood clots, easy bleeding, easy bruising Immunologic/allergic: denies: HIV/AIDS, transplant EXAM: GENERAL: Thin, no acute distress HEAD: Atraumatic, normocephalic. EYES: Pupils equal round and reactive to light, extraocular movements intact, sclera anicteric, conjunctiva are normal. ENT: TMs normal, nares patent, oropharynx clear without exudates. Moist mucous membranes. NECK: Normal range of motion, supple without lymphadenopathy or JVD. LUNGS: Breath sounds clear to auscultation bilaterally and equal. No wheezes rales or rhonchi. HEART: Tachycardic and irregular, without murmurs, rubs or gallops. ABDOMEN: Soft, nontender, normoactive bowel sounds. No guarding, no rebound. No masses appreciated. BACK: No CVA tenderness, no spinal tenderness, step-offs or deformities EXTREMITIES: Normal range of motion, no pitting or edema. No clubbing or cyanosis. NEUROLOGICAL: Cranial nerves II through XII grossly intact. Normal speech, normal gait. 5/5 strength, normal movement in all extremities, normal sensation PSYCH: Normal mood, normal affect. SKIN: Warm, dry, normal turgor, no visible rashes or lesions. Source: Patient Exam Limitations: No limitations - Personal History Current Tetanus/Diphtheria Vaccine: Yes Tetanus Vaccine Date: 2014 - Medical/Surgical History Hx Asthma: No Hx Chronic Respiratory Disease: No Hx Diabetes: No Hx Cardiac Disease: Yes Hx Renal Disease: No Hx Cirrhosis: No Hx Alcoholism: Yes Hx HIV/AIDS: No Hx Splenectomy or Spleen Trauma: No Other PMH: PMHx: Alcoholism, degenerative disc disease, osteoarthritis, scoliosis, heart murmur, a-fib, C difficile-Dec 2015, hx withdrawal, pancreatitis, R leg fx, NV. PSHx: tonsillectomy - Family History Significant Family History: No pertinent family hx - Social History Smoking Status: Never smoked Alcohol Use: Sober Drug Use: None Constitutional: Initial Vital Signs Temperature (C) 36.8 C 06/25/17 03:19 Heart Rate 147 H 06/25/17 03:19 Respiratory Rate 20 06/25/17 03:19 Blood Pressure 116/94 H 06/25/17 03:19 O2 Sat (%) 100 06/25/17 03:19 O2 Delivery Mode Nasal Cannula O2 (L/minute) 2 Allergies/Adverse Reactions: Sulfa (Sulfonamide Antibiotics) Allergy (Mild, Verified 05/30/17 21:18) Rash Home Medications: Medication Instructions Recorded Ascorbic Acid [Vitamin C 500 mg 1,000 mg PO DAILY 03/27/17 (*)] Acetaminophen [Tylenol 325mg (*)] 650 mg PO Q4HRS PRN tab 05/08/17 Ferrous Sulfate [Slow Fe 140 MG 140 mg PO DAILY #30 tab.er 05/08/17 (*)] LORazepam [Ativan (*)] 0.5 mg PO Q4HRS PRN #10 tab 05/08/17 Levothyroxine [Synthroid 112 mcg 112 mcg PO DAILY #30 tab 05/08/17 (*)] Pantoprazole Sodium [Protonix 40mg 40 mg PO BID #60 tab 05/08/17 (*)] Sertraline HCl [Zoloft 100mg (*)] 100 mg PO DAILY #30 tab 05/08/17 Methocarbamol [Robaxin 500 mg (*)] 1,000 mg PO HS 05/13/17 Calcium Carb W/Vit D [Calcium Carb 500 mg PO BID 05/31/17 W/Vit D 500/200 (*)] Diltiazem Xr [Dilacor Xr] 240 mg PO DAILY 05/31/17 Gabapentin [Neurontin 100 MG (*)] 100 mg PO HS 05/31/17 Sucralfate [Carafate 1 GM (*)] 1 gm PO QID 05/31/17 traZODone [traZODONE 50MG (*)] 50 mg PO HS 05/31/17 Oxycodone HCl 06/25/17 Medical Decision Making - Diagnostics EKG Interpretation: An EKG obtained and was read and documented in trace view. Please see trace view for full reading and report. Atrial fibrillation, similar to previous ED Course/Re-evaluation: 5:40 a.m. the patient is feeling much better. She is still tachycardic. She is on a diltiazem drip. She states her nausea is resolved. Abdominal exam remains benign. I discussed the case with Dr. Avila who will admit. Differential Diagnosis: Partial list of the Differential diagnosis considered include but were not limited to; atrial fibrillation, electrolyte abnormality, dehydration, gastritis and although unlikely based on the history and physical exam, I also considered obstruction, sepsis. I discussed these differential diagnoses and the plan with the patient as well as the usual and expected course. The patient understands that the diagnosis is provisional and that in medicine we are not always correct and that further workup is often warranted. Usual and customary warnings were given. All of the patient's questions were answered. The patient was instructed to return to the emergency department should the symptoms at all worsen or return, otherwise to followup with the physician as we discussed. - Data Points Laboratory Results: Laboratory Results 06/25/17 04:50 06/25/17 04:50 06/25/17 06/25/17 06/25/17 04:50 04:50 04:50 WBC 4.82 10^3/uL 10^3/uL (3.80-9.50) RBC 3.56 10^6/uL L 10^6/uL (4.18-5.33) Hgb 11.5 g/dL L g/dL (12.6-16.3) Hct 33.7 % L % (38.0-47.0) MCV 94.7 fL fL (81.5-99.8) MCH 32.3 pg pg (27.9-34.1) MCHC 34.1 g/dL g/dL (32.4-36.7) RDW 17.0 % H % (11.5-15.2) Plt Count 87 10^3/uL L 10^3/uL (150-400) MPV 10.8 fL fL (8.7-11.7) Neut % (Auto) 77.0 % H % (39.3-74.2) Lymph % (Auto) 16.4 % % (15.0-45.0) Amite % (Auto) 5.4 % % (4.5-13.0) Eos % (Auto) 0.4 % L % (0.6-7.6) Baso % (Auto) 0.2 % L % (0.3-1.7) Nucleat RBC Rel Count 0.0 % % (0.0-0.2) Absolute Neuts (auto) 3.71 10^3/uL 10^3/uL (1.70-6.50) Absolute Lymphs (auto) 0.79 10^3/uL L 10^3/uL (1.00-3.00) Absolute Monos (auto) 0.26 10^3/uL L 10^3/uL (0.30-0.80) Absolute Eos (auto) 0.02 10^3/uL L 10^3/uL (0.03-0.40) Absolute Basos (auto) 0.01 10^3/uL L 10^3/uL (0.02-0.10) Absolute Nucleated RBC 0.00 10^3/uL 10^3/uL (0-0.01) Immature Gran % 0.6 % % (0.0-1.1) Immature Gran # 0.03 10^3/uL 10^3/uL (0.00-0.10) PT 15.3 SEC H SEC (12.0-15.0) INR 1.19 H (0.83-1.16) APTT 32.1 SEC SEC (23.0-38.0) Sodium 138 mEq/L mEq/L (135-145) Potassium 4.0 mEq/L mEq/L (3.5-5.2) Chloride 104 mEq/L mEq/L (97-110) Carbon Dioxide 27 mEq/l mEq/l (22-31) Anion Gap 7 mEq/L L mEq/L (8-16) BUN 9 mg/dL mg/dL (7-23) Creatinine 0.5 mg/dL L mg/dL (0.6-1.0) Estimated GFR > 60 Glucose 108 mg/dL H mg/dL (70-100) Calcium 8.0 mg/dL L mg/dL (8.5-10.4) Total Bilirubin 2.0 mg/dL H mg/dL (0.1-1.4) Conjugated Bilirubin 0.7 mg/dL H mg/dL (0.0-0.5) Unconjugated Bilirubin 1.3 mg/dL H mg/dL (0.0-1.1) AST 41 IU/L IU/L (14-46) ALT 32 IU/L IU/L (9-52) Alkaline Phosphatase 294 IU/L H IU/L (38-126) Troponin I Total Protein 5.1 g/dL L g/dL (6.3-8.2) Albumin 2.5 g/dL L g/dL (3.5-5.0) Lipase 323 IU/L H IU/L (23-300) 06/25/17 04:30 WBC RBC Hgb Hct MCV MCH MCHC RDW Plt Count MPV Neut % (Auto) Lymph % (Auto) Amite % (Auto) Eos % (Auto) Baso % (Auto) Nucleat RBC Rel Count Absolute Neuts (auto) Absolute Lymphs (auto) Absolute Monos (auto) Absolute Eos (auto) Absolute Basos (auto) Absolute Nucleated RBC Immature Gran % Immature Gran # PT INR APTT Sodium Potassium Chloride Carbon Dioxide Anion Gap BUN Creatinine Estimated GFR Glucose Calcium Total Bilirubin Conjugated Bilirubin Unconjugated Bilirubin AST ALT Alkaline Phosphatase Troponin I 0.013 ng/mL ng/mL (0.000-0.034) Total Protein Albumin Lipase Medications Given: Discontinued Medications Aspirin (Aspirin) 324 mg PO EDNOW ONE Stop: 06/25/17 03:33 Last Admin: 06/25/17 03:51 Dose: Not Given Diltiazem HCl (Cardizem 25 Mg/5 Ml Vial) 10 mg IVP EDNOW ONE Stop: 06/25/17 03:33 Last Admin: 06/25/17 03:51 Dose: Not Given Diltiazem HCl (Cardizem) 10 mg IV EDNOW ONE Stop: 06/25/17 03:46 Last Admin: 06/25/17 03:47 Dose: 10 mg Diltiazem HCl (Cardizem 25 Mg/5 Ml Vial) 10 mg IVP EDNOW ONE Stop: 06/25/17 04:09 Last Admin: 06/25/17 04:20 Dose: Not Given Diltiazem HCl (Cardizem) 10 mg IV EDNOW ONE Stop: 06/25/17 04:31 Last Admin: 06/25/17 04:19 Dose: 10 mg Sodium Chloride (Ns) 1,000 mls @ 0 mls/hr IV EDNOW ONE; Wide Open PRN Reason: Protocol Stop: 06/25/17 03:33 Last Admin: 06/25/17 03:46 Dose: 1,000 mls Famotidine/Sodium Chloride (Pepcid 20 Mg (Premix)) 50 mls @ 200 mls/hr IV EDNOW ONE Stop: 06/25/17 03:51 Last Admin: 06/25/17 03:46 Dose: 50 mls Diltiazem HCl 125 mg/ Dextrose 125 mls @ 0 mls/hr IV EDNOW ONE; As Directed PRN Reason: Protocol Stop: 06/25/17 05:06 Last Admin: 06/25/17 05:14 Dose: 125 mls Diltiazem/Dextrose (Diltiazem 125mg/125ml (Premix)) 125 mls @ 0 mls/hr IV EDNOW ONE; As Directed PRN Reason: Protocol Stop: 06/25/17 05:31 Last Admin: 06/25/17 05:33 Dose: Not Given Ondansetron HCl (Zofran) 4 mg IVP EDNOW ONE Stop: 06/25/17 03:38 Last Admin: 06/25/17 03:47 Dose: 4 mg Departure - Departure Disposition: [facility] Acute Clinical Impression: Atrial fibrillation with RVR Nausea & vomiting Qualifiers: Vomiting type: unspecified Vomiting Intractability: unspecified Qualified Code( s): R11.2 - Nausea with vomiting, unspecified Condition: Fair
[2017-06-25] MEDS ORDERED: ONDANSETRON 4 MG/2 ML VIAL IVP ONE (03:37)
[2017-06-25] MEDS ORDERED: FAMOTIDINE 20 MG/NACL 50 ML IV ONE (03:37)
[2017-06-25] MEDS ORDERED: DILTIAZEM 50 MG/10 ML VIAL IV ONE ×2 (03:45→04:30)
[2017-06-25 05:05] LABS: PLATELET COUNT 87 10^3/uL (150-400)
[2017-06-25] MEDS ORDERED: DILTIAZEM 125 MG in D5W 125 ML IV ONE (05:05)
[2017-06-25 05:25] LABS: INR 1.19 (0.83-1.16); PROTIME(PATIENT) 15.3 SEC (12.0-15.0)
[2017-06-25] MEDS ORDERED: DILTIAZEM HCL/D5W 125 ML IV ONE (05:30)
[2017-06-25] MEDS ORDERED: LORazepam 2 MG/ML INJ IVP PRN (06:38)
[2017-06-25] MEDS ORDERED: ONDANSETRON 4 MG/2 ML VIAL IVP PRN (06:38)
[2017-06-25] MEDS ORDERED: METOCLOPRAMIDE 10 MG TAB PO PRN (06:38)
[2017-06-25] MEDS ORDERED: NS 1,000 ML IV SCH (06:45)
[2017-06-25] MEDS ORDERED: DILTIAZEM 125 MG in D5W 125 ML IV SCH (06:45)
[2017-06-25 06:50] VITALS: RESP 16
[2017-06-25] MEDS ORDERED: DILTIAZEM HCL/D5W 125 ML IV SCH (07:00)
[2017-06-25] MEDS ORDERED: ENOXAPARIN 40 MG/0.4 ML SYR SC SCH (09:00)
--- NOTE | 2017-06-25 09:42 | GHP ---
[f rep st] HISTORY AND PHYSICAL DATE OF ADMISSION: 06/25/2017 Patient with unlisted PCP. SOURCE: Patient able to provide history. She is a fair historian. EMR was reviewed, and case discu ssed with ED provider. CHIEF COMPLAINT: Palpitations. HISTORY OF PRESENT ILLNESS: This is a 61-year-old female with past medical history significant for a lcohol dependence with cirrhosis and associated coagulopathy, paroxysmal atrial fibrillation, osteoar thritis, chronic pain, who presents to the emergency department today with complaints of sudden onset palpitations and tachycardia. The patient reports that the last several days she has been combattin g upper respiratory type symptoms with cough, fevers, chills, which are slowly improving. She has al so had some nausea and vomiting, without any hematemesis. She denies any diarrhea. No melena or hem atochezia. Patient denies any chest pain. No shortness of breath. Occasional lightheadedness but n o syncope. Patient denies any acute changes in her vision. REVIEW OF SYSTEMS: Negative, except as noted above. ALLERGIES: Sulfa. HOME MEDICATIONS: As per EMR: Oxycodone, trazodone, Carafate, Zoloft, Protonix, Robaxin, levothyrox ine, Ativan, gabapentin, ferrous sulfate, diltiazem, calcium, vitamin D, vitamin C, Tylenol p.r.n. PAST MEDICAL HISTORY: Significant for paroxysmal atrial fibrillation, alcohol abuse with history of withdrawal, alcoholic gastritis, history of alcoholic ketoacidosis, recent history of cardiac arrest due to aspiration. History of C difficile. History of gastric ulcer, Lisa-Murphy tear with GI ble eding. History of DVT in the right lower extremity, off anticoagulation. History of PE, small, last hospitalization. Alcohol dependence and abuse, 1-2 shots daily, vodka. Pancreatitis, coagulopathy, history of C diff in 2016, depression, degenerative disk disease, arthritis, and chronic pain. PAST SURGICAL HISTORY: Significant for tonsillectomy and adenoidectomy. FAMILY HISTORY: Significant for father with accidental at age 42. Mother with history of esop hageal cancer, age 52, degenerative disk disease and scoliosis. SOCIAL HISTORY: Patient lives alone. She denies use of illicit drugs or tobacco. She does drink. She reports she is down to 2 shots of vodka daily, where previously she had 1 pint per day. CODE STATUS: Full. PHYSICAL EXAMINATION: VITAL SIGNS: Upon arrival to the emergency department, blood pressure 116/94, heart rate 147, respiratory rate 20, O2 sat 100% on 2 L by nasal cannula with a temperature of 36.8. VITALS: On the floor, blood pressure 117/89, heart rate 111, respiratory rate 16, O2 saturation 95% on room air, with a temperature of 36.6. GENERAL: No acute distress, cachectic-appearing, frail michele lt female who is lying quietly in bed, awake. HEAD: Normocephalic, atraumatic. EYES: Extraocular muscles are intact. Pupils equal, round, react to light bilaterally. Slightly decreased reactivity but symmetric. No scleral icterus or conjunctival injection. ENT: Mucous membranes appear moist. No oropharyngeal erythema or exudates. Dentition in fair condition. NECK: Supple. Trachea midline . CV: Tachycardia, with irregularly irregular rhythm. Slightly distant heart sounds. RESPIRATORY: Unlabored breathing. Lungs are clear to auscultation bilaterally. No wheezes, rales, or rhonchi a ppreciated. ABDOMEN: Positive bowel sounds. Soft, nontender to palpation. No rebound, guarding, o r masses appreciated. : No suprapubic tenderness to palpation. No Swanson catheter in place. EXTR EMITIES: Generalized weakness but moves all extremities while lying in bed. NEURO: Grossly nonfoca l. No facial drooping. Again, moves all extremities. PSYCH: Patient is awake, alert, and oriented x4. Thought process, content and questions currently appropriate. LABORATORY STUDIES: WBC 4.82, H and H 11.5 and 33.7, MCV 94.7. Platelet count is 87, neutrophil per cent 77.0, no bands. PT 15.3. INR is 1.19. PTT is 32.1. Sodium is 138, potassium 4.0, chloride 104, CO2 27, anion gap 7, BUN 9, creatinine 0.5, GFR greater t green 60, glucose 108, calcium 8.0. Total bili is 2.0, conjugated 0.7. ALT 32, AST 41. Alkaline phos phatase is 294. Troponin 0.013. Total protein 5.1. Albumin is 2.5. Lipase is 323. EKG in the emergency department reviewed, showing atrial flutter, with ventricular response in the 15 0s. Chest x-ray: Imaging report reviewed; this was within normal limits. ASSESSMENT/PLAN: A 61-year-old female with past medical history significant for paroxysmal atrial fi brillation, cirrhosis, and alcohol dependence, who presents in the emergency department with palpitat ions. 1. Atrial fibrillation/flutter with rapid ventricular response. The patient was started on diltiaze m drip and bolus in the emergency department. Heart rate currently is slowly improving. Patient wit hout any further palpitations. She denies any chest pain or shortness of breath. The patient report s that the last several days she has had a viral type syndrome and has been unable to keep down her h ome medications, including her p.o. Cardizem. Once the patient's heart rate is slightly more improve d, then will transition to oral as per day team. The patient is not a candidate for anticoagulation secondary to her history of recurrent falls, injuries, and alcohol dependence. 2. Nausea and vomiting, status post Zofran, currently improved. Continue with supportive care. 3. Alcohol abuse and dependence. Cessation was advised. Patient not currently interested in cessati on. She continues to drink 2 shots of alcohol on a daily basis, previously reported up to 1 pint per day. 4. History of pulmonary embolism. Patient without any hypoxia. She is not a candidate for anticoag ulation, as noted above. 5. Cirrhosis. Supportive care. Monitor fluids. 6. Coagulopathy with thrombocytopenia. Patient without any active bleeding. Continue to monitor. 7. Anemia, likely a component of chronic disease. Also with history of gastrointestinal bleeding re motely. No evidence of active bleeding at this time. Continue monitor. 8. Hyperbilirubinemia. 9. Hypoalbuminemia, likely multifactorial, including cirrhosis and a component of malnutrition. Rec ommended patient take a daily multivitamin, folate, and B vitamin. 10. Fluids, electrolytes, and nutrition. Patient with history of volume overload in the setting of cirrhosis. We will encourage oral hydration as her nausea is currently controlled. Electrolytes rito l be monitored, and the patient will be advanced on her diet. 11. Prophylaxis, SCDs. Lovenox while in-house, but no chronic anticoagulation. 12. Code status is full. 13. Disposition: Patient admitted to observation status on the PCU floor pending further evaluation and monitoring. /[id number]/MODL
--- NOTE | 2017-06-25 09:51 | CPEKG ---
Heart Rate: 107 RR Interval: 561 QRSD Interval: 64 QT Interval: 344 QTC Interval: 459 QRS [place]: 8 T Wave [place]: 34 EKG Severity - ABNORMAL ECG - EKG Impression: ATRIAL FLUTTER, A-RATE 283 EKG Impression: VENTRICULAR PREMATURE COMPLEX EKG Impression: LOW VOLTAGE THROUGHOUT Electronically Signed By: Nolan Sands 25-Jun-2017 13:52:36
[2017-06-25] MEDS ORDERED: oxyCODONE IR 5 MG TAB PO PRN (09:59)
[2017-06-25] MEDS ORDERED: LORazepam 0.5 MG TAB PO PRN (09:59)
[2017-06-25] MEDS ORDERED: DILTIAZEM XR 240 MG CAP PO SCH (10:00)
[2017-06-25] MEDS ORDERED: CEPACOL LOZENGE PO PRN (11:00)
[2017-06-25] MEDS: SUCRALFATE 1 GM TAB PO SCH ×2 (11:49→16:48)
[2017-06-25 12:07] VITALS: BP 114/73; PULSE 98; TEMP 98.5; O2SAT 92
--- NOTE | 2017-06-25 14:52 | HOSPPROG ---
Hospitalist Progress Note Assessment/Plan: 61 yo F w alcoholism, recurrent AF converted home see dc summary Subjective: converted to sinus Objective: Vital Signs Temp Pulse Resp BP Pulse Ox 36.9 C 98 16 114/73 92 06/25/17 12:06 06/25/17 12:06 06/25/17 12:06 06/25/17 12:06 06/25/17 12:06 06/24/17 06/25/17 06/26/17 05:59 05:59 05:59 Intake Total 1300 Balance 1300 PT 15.3 SEC (12.0-15.0) H 06/25/17 04:50 INR 1.19 (0.83-1.16) H 06/25/17 04:50 - Physical Exam Constitutional: no apparent distress, appears nourished Eyes: PERRL, anicteric sclera Ears, Nose, Mouth, Throat: moist mucous membranes, hearing normal Cardiovascular: regular rate and rhythym, no murmur, rub, or gallop Respiratory: no respiratory distress, no rales or rhonchi Gastrointestinal: normoactive bowel sounds, soft, non-tender abdomen Genitourinary: no bladder fullness, No nicole in urethra Skin: warm, normal color Musculoskeletal: full muscle strength Neurologic: AAOx3 ICD10 Worksheet Patient Problems: Problems Problem Status Onset Atrial fibrillation with RVR Acute Nausea & vomiting Acute Abdominal pain Acute Alcohol abuse Acute Alcohol intoxication Acute Alcohol withdrawal Acute Alcohol withdrawal Acute Ankle fracture Acute Atrial fibrillation Acute C. difficile diarrhea Acute 09/23/16 Cardiac arrest Acute GI bleed Acute Nausea and vomiting in adult Acute Vomiting Acute
--- NOTE | 2017-06-25 16:06 | ASMTLACE ---
LACE Length of stay for Answers: Less than 1 day current admission Acuity / Level of Answers: Yes Care: Did the patient have an inpatient admission? Comorbidities - select Answers: Coronary Atery Disease all that apply Mild liver or renal disease Previous myocardial infarction Other Notes: history of cardiac arre st # of Emergency department Answers: 12+ visits in the last 6 months Social determinants Answers: History of substance abuse (ETOH, street drugs, prescription drugs, etc.) Score: 18 Date Signed: 06/25/2017 04:05 PM Electronically Signed By:Marlena Sandoval RN
--- NOTE | 2017-06-25 17:06 | ASDISCHSUM ---
Discharge Information Plan Status:Home with No Needs Medically Cleared to Leave:06/24/2017 Discharge Date:06/25/2017 05:02 PM CM D/C Disposition:Home, Routine, Self-Care ADT D/C Disposition:Home, Routine, Self-Care Projected Discharge Date:06/25/2017 05:02 PM Transportation at D/C:Taxicab Discharge Delay Reason: Follow-Up Date:06/25/2017 05:02 PM Discharge Slot: Final Diagnosis: Placement Information Patient Contact Information Contact Name:BATSHEVA Relationship:Friend Address: Work Phone: City: [facility] Phone: State/[employer] Code: Email: Financial Information Financial Class:Medicaid Primary Plan Desc:MEDICA[employer] HEALTH FIRST [employer] UP [employer]OR Primary Plan Number:[id number] Secondary Plan Desc: Secondary Plan Number: Assessment Information Case Management Discharge Plan Note Case Management Discharge Discharge Order Complete? Answers: Yes Patient to Obtain Answers: Independently Medications Transportation Arranged Answers: Taxi - Self Pay Discharge Comments Notes: 06/25/2017 Case Management Note Met w/pt. Pt unable to maintain sobriety since last hospital stay. Provided multiple resources for patient, including inpatient and intensive outpatient treatment options that take Medicaid. Encouraged pt to consider inpatient recovery resources. [facility] has a walk in clinic at the [place] location [address] from 8 am to 7:15 pm tomorrow. Provided info on [facility] for patient. Pt uses a taxi as primary source of transportation. Pt missed appointment scheduled by Case Management for 06/18 and thought appointment was on 06/21. Pt unaware that today's date was 06/25. Encouraged pt to attend walk in clinic to establish care for primary MD. Discussed need for utilizing outpatient care rather than frequent returns to the hospital. Case Management d/c poc: Home Independent with follow up as directed. Date Signed: 06/25/2017 04:03 PM Electronically Signed By:Marlena Sandoval RN LACE LACE Length of stay for Answers: Less than 1 day current admission Acuity / Level of Answers: Yes Care: Did the patient have an inpatient admission? Comorbidities - select Answers: Coronary Atery Disease all that apply Mild liver or renal disease Previous myocardial infarction Other Notes: history of cardiac arre st # of Emergency department Answers: 12+ visits in the last 6 months Social determinants Answers: History of substance abuse (ETOH, street drugs, prescription drugs, etc.) Score: 18 Date Signed: 06/25/2017 04:05 PM Electronically Signed By:Marlena Sandoval RN Intervention Information
--- NOTE | 2017-06-25 18:00 | GDS ---
[f rep st] DISCHARGE SUMMARY DISCHARGE DIAGNOSES: 1. Atrial fibrillation with rapid ventricular response, now in sinus. 2. Alcoholism. 3. Medical noncompliance. 4. Chronic pain. 5. Alcoholic gastritis. 6. History of alcoholic ketoacidosis. 7. Recent history of cardiac arrest secondary to aspiration. 8. History of Clostridium difficile. HOSPITAL COURSE: Please see Admission History and Physical by Dr. Traci Avila. The patient present ed with rapid AFib and palpitations. She was started on diltiazem drip and given her oral diltiazem. She converted to sinus rhythm and was discharged home. /[id number]/MODL
[2017-06-25] MEDS ORDERED: GABAPENTIN 100 MG CAP PO SCH (21:00)
[2017-06-25] MEDS ORDERED: METHOCARBAMOL 500 MG TAB PO SCH (21:00)
[2017-06-25] MEDS ORDERED: PANTOPRAZOLE SODIUM 40 MG TAB PO SCH (21:00)
[2017-06-25] MEDS ORDERED: traZODone 50 MG TAB PO SCH (21:00)
[2017-06-26] MEDS ORDERED: SERTRALINE HCL 100 MG TAB PO SCH (09:00)
[2017-06-26] MEDS ORDERED: MULTIVITAMINS 1 EACH TAB PO SCH (09:00)
[2017-06-26] MEDS ORDERED: Herbals/Supplements -Info Only PO SCH (09:00)
[2017-06-26] MEDS ORDERED: FERROUS SULFATE 140 MG TAB.ER PO SCH (09:00)
[2017-06-26] MEDS ORDERED: LEVOTHYROXINE 112 MCG TAB PO SCH (09:00)
== END 2017-06-25 17:02 | disposition home or self-care (01) ==
LOC: EDUNIT# → F2W 06:34
PROVIDERS: ADMIT Family Medicine; ATTEND Family Medicine
DX: I48.91 Unspecified atrial fibrillation (principal); F10.20 Alcohol dependence, uncomplicated; Z91.19 Patient's noncompliance with other medical treatment and regimen; G89.29 Other chronic pain; K29.20 Alcoholic gastritis without bleeding; Z86.74 Personal history of sudden cardiac arrest; Z87.19 Personal history of other diseases of the digestive system; Z88.2 Allergy status to sulfonamides
CPT/HCPCS: 71045; 93005; G0378; 96365; J1650; J2405

== ENCOUNTER 2017-07-01 12:27 | Emergency (ER) | payer MEDICAID ==
--- NOTE | 2017-07-01 12:36 | EDPHY ---
H & P Time Seen by Provider: 07/01/17 12:35 HPI/ROS: CHIEF COMPLAINT: Chest pain, cough, vomiting HISTORY OF PRESENT ILLNESS: The patient presents to the ED with a 2 day history of central chest pain, cough and vomiting. The patient has a history of alcoholism. Her last drink was on Sunday. She also has a history of cardiac arrest from presumed aspiration in April of this year. She was hospitalized at that time and found to have metabolic derangements. She did undergo coronary angiogram which was normal. The patient is currently immobilized in a right leg splint secondary to prior tib-fib fracture. The patient denies any fever. She denies any hematemesis or melena. The patient denies any asymmetric calf pain or swelling. She denies pleuritic chest pain. REVIEW OF SYSTEMS: A comprehensive 10 point review of systems is otherwise negative aside from elements mentioned in the history of present illness. Source: Patient Exam Limitations: No limitations - Personal History Tetanus Vaccine Date: 2014 - Medical/Surgical History Hx Asthma: No Hx Chronic Respiratory Disease: No Hx Diabetes: No Hx Cardiac Disease: Yes Hx Renal Disease: No Hx Cirrhosis: No Hx Alcoholism: Yes Hx HIV/AIDS: No Hx Splenectomy or Spleen Trauma: No Other PMH: PMHx: Alcoholism, degenerative disc disease, osteoarthritis, scoliosis, heart murmur, a-fib, C difficile-Dec 2015, hx withdrawal, pancreatitis, R leg fx, ND. PSHx: tonsillectomy - Social History Smoking Status: Never smoked - Physical Exam Exam: General Appearance: Thin female, disheveled Eyes: Pupils equal and round no pallor or injection ENT, Mouth: Dry mucous membranes Respiratory: There are no retractions, lungs are clear to auscultation Cardiovascular: Regular rate and rhythm Gastrointestinal: Abdomen is soft and nontender, no masses, bowel sounds normal Neurological: A&O, normal motor function, normal sensory exam, normal cranial nerves Skin: Warm and dry, no rashes Musculoskeletal: Neck is supple nontender Extremities: Splint to right lower extremity Constitutional: Initial Vital Signs Heart Rate 88 07/01/17 12:37 Respiratory Rate 16 07/01/17 12:37 Blood Pressure 137/87 H 07/01/17 12:37 O2 Sat (%) 99 07/01/17 12:37 O2 Delivery Mode Room Air O2 (L/minute) 36.6 Allergies/Adverse Reactions: Sulfa (Sulfonamide Antibiotics) Allergy (Mild, Verified 07/01/17 12:36) Rash Home Medications: Medication Instructions Recorded Acetaminophen [Tylenol 325mg (*)] 650 mg PO Q4HRS PRN tab 05/08/17 Ferrous Sulfate [Slow Fe 140 MG 140 mg PO DAILY #30 tab.er 05/08/17 (*)] LORazepam [Ativan (*)] 0.5 mg PO Q4HRS PRN #10 tab 05/08/17 Levothyroxine [Synthroid 112 mcg 112 mcg PO DAILY #30 tab 05/08/17 (*)] Pantoprazole Sodium [Protonix 40mg 40 mg PO BID #60 tab 05/08/17 (*)] Methocarbamol [Robaxin 500 mg (*)] 1,000 mg PO HS 05/13/17 Diltiazem Xr [Dilacor Xr] 240 mg PO DAILY 05/31/17 Gabapentin [Neurontin 100 MG (*)] 100 mg PO HS 05/31/17 Sucralfate [Carafate 1 GM (*)] 1 gm PO QID 05/31/17 traZODone [traZODONE 50MG (*)] 50 mg PO HS 05/31/17 Herbals/Supplements -Info Only 1 ea PO DAILY 06/25/17 Multivitamins [Multivitamin (*)] 1 each PO DAILY 06/25/17 Sertraline HCl [Zoloft 100mg (*)] 150 mg PO DAILY 06/25/17 oxyCODONE IR [Oxycodone Ir (*)] 5 - 10 mg PO Q4-6PRN PRN 06/25/17 Medical Decision Making - Diagnostics EKG Interpretation: EKG: Complete interpretation has been separately recorded in the [facility] archive. Summary impression: Sinus rhythm, rate 74, QT prolongation present Imaging Results: Chest x-ray PA lateral: Images reviewed by myself, negative for focal infiltrate or cardiomegaly. Impression normal chest x-ray ED Course/Re-evaluation: The patient presents to the ED with complaints of chest pain. The patient is noted to be hemodynamically stable upon arrival. Her EKG demonstrates no ischemic changes. The patient has had a cough however chest x-ray fails to demonstrate any evidence of pneumonia, heart failure or pneumothorax. The patient's electrolytes are within normal limits and her troponin is normal. The patient received anti emetics and pain medications prior to arrival by paramedics. The patient was kept in the emergency department for 2 hr without any recurrent vomiting. Her vital signs remained stable and she is in no acute distress. I reviewed the patient's past medical records including her hospitalization from in April and recent hospitalization in May for atrial fibrillation. At this point time I see no evidence of acute ischemia, pneumonia, significant metabolic derangement or concerning findings on her abdominal examination to warrant further workup. I do feel that she can be discharged home with instructions to follow up with her primary care provider and return to see us for worsening symptoms. Differential Diagnosis: Differential diagnosis considered includes pancreatitis, choledocholithiasis, acute coronary syndrome, pneumonia, dehydration, metabolic abnormality - Data Points Laboratory Results: Laboratory Results 07/01/17 13:05 07/01/17 13:05 07/01/17 07/01/17 13:05 13:05 WBC REJ RBC REJ Hgb REJ Hct REJ MCV REJ MCH REJ MCHC REJ RDW REJ Plt Count REJ MPV REJ Neut % (Auto) REJ Lymph % (Auto) REJ [place] % (Auto) REJ Eos % (Auto) REJ Baso % (Auto) REJ Nucleat RBC Rel Count REJ Absolute Neuts (auto) REJ Absolute Lymphs (auto) REJ Absolute Monos (auto) REJ Absolute Eos (auto) REJ Absolute Basos (auto) REJ Absolute Nucleated RBC Not Reported Immature Gran % REJ Immature Gran # REJ Sodium 136 mEq/L mEq/L (135-145) Potassium 3.5 mEq/L mEq/L (3.5-5.2) Chloride 103 mEq/L mEq/L (97-110) Carbon Dioxide 22 mEq/l mEq/l (22-31) Anion Gap 11 mEq/L mEq/L (8-16) BUN 4 mg/dL L mg/dL (7-23) Creatinine 0.6 mg/dL mg/dL (0.6-1.0) Estimated GFR > 60 Glucose 96 mg/dL mg/dL (70-100) Calcium 8.5 mg/dL mg/dL (8.5-10.4) Troponin I 0.017 ng/mL ng/mL (0.000-0.034) Departure - Departure Disposition: Home, Routine, Self-Care Clinical Impression: Chest pain, Vomiting Condition: Good Instructions: Abdominal Pain (ED) Additional Instructions: 1. Zofran as needed for nausea. 2. Please follow up with your primary care provider as needed. 3. Please return to the ED for markedly worsening symptoms or other concerns. Referrals: Makenzie Briggs MD [Primary Care Provider] - As per Instructions
--- NOTE | 2017-07-01 12:38 | CPEKG ---
Heart Rate: 74 RR Interval: 811 P-R Interval: 149 QRSD Interval: 76 QT Interval: 492 QTC Interval: 546 P [place]: 0 QRS [place]: 4 T Wave [place]: 48 EKG Severity - ABNORMAL ECG - EKG Impression: SINUS RHYTHM EKG Impression: LOW VOLTAGE IN FRONTAL LEADS EKG Impression: PROLONGED QT INTERVAL Electronically Signed By: Jose Torres 01-Jul-2017 13:56:36
[2017-07-01 12:39] VITALS: RESP 16
[2017-07-01 14:15] VITALS: PULSE 72; O2SAT 97
[2017-07-01 14:33] VITALS: BP 144/88
== END 2017-07-01 14:32 | disposition home or self-care (01) ==
LOC: EDUNIT#
DX: R07.9 Chest pain, unspecified (principal); R11.10 Vomiting, unspecified; I25.2 Old myocardial infarction

== ENCOUNTER 2017-07-13 16:25 | Inpatient (IN) | payer MEDICAID ==
[2017-07-13] MEDS ORDERED: NS 1,000 ML IV ONE ×3 (16:34→19:05)
[2017-07-13] MEDS ORDERED: LORazepam 2 MG/ML INJ IVP ONE (16:34)
--- NOTE | 2017-07-13 16:37 | EDPHY ---
H & P Time Seen by Provider: 07/13/17 16:30 HPI/ROS: HPI CHIEF COMPLAINT: Alcohol withdraw HISTORY OF PRESENT ILLNESS: This patient is 61-year-old female, well known to myself as well as the emergency room for alcoholism daily alcohol use. She presents emergency room by ambulance after call 911 for feeling like she is going to withdrawal and anxiety. Patient reports that her last drink was Sunday. She states she binge drink liquor Sunday and then abruptly. She now feels like she is going to withdrawal. She complains of nausea vomiting. Complains of shakiness and anxiety. Denies chest pain or shortness of breath. States she is dehydrated. Past Medical History: Alcohol use, alcoholism, recent cardiac arrest, AFib with RVR, medication noncompliance, C diff, cardiac arrest due to aspiration Past Surgical History: No recent surgery. Social History: Daily alcohol use. Lives locally. Family History: Noncontributory. ROS REVIEW OF SYSTEMS: A comprehensive 10 point review of systems is otherwise negative aside from elements mentioned in the history of present illness. Exam Constitutional appears otherwise well nontoxic no acute distress triage nursing summary reviewed, vital signs reviewed, awake/alert. Eyes normal conjunctivae and sclera, EOMI, PERRLA. HENT normal inspection, atraumatic, moist mucus membranes, no epistaxis, neck supple/ no meningismus, no raccoon eyes. Respiratory clear to auscultation bilaterally, normal breath sounds, no respiratory distress, no wheezing. Cardiovascular rate normal, regular rhythm, no murmur, no edema, distal pulses normal. Gastrointestinal soft, non-tender, no rebound, no guarding, normal bowel sounds, no distension, no pulsatile mass. Genitourinary no CVA tenderness. Musculoskeletal very fine tremors with full arm hand extension, no tongue fasciculations, no midline vertebral tenderness, full range of motion, no calf swelling, no tenderness of extremities, no meningismus, good pulses, neurovascularly intact. Skin pink, warm, & dry, no rash, skin atraumatic. Neurologic awake, alert and oriented x 3, AAOx3, moves all 4 extremities equally, motor intact, sensory intact, CN II-XII intact, normal cerebellar, normal vision, normal speech. Psychiatric normal mood/affect. Heme/Lymph/Immune no lymphadenopathy. Differential Diagnosis: Includes but is not limited to in a particular order electrolyte disturbance, dehydration, alcohol withdrawal, alcoholism, Medical Decision Making: Plan for this patient IV establishment IV fluid bolus , check electrolytes and magnesium, IV Ativan for withdrawal, and re-evaluate. Re-evaluation: EKG interpretation by me on record in [employer] system. Impression time of EKG 1652, sinus rhythm rate of 82, nonischemic unremarkable EKG. 1854: Magnesium noted to be critically low at 1. I have ordered her IV Mag 2 g. Additionally calcium low. I have ordered her 2 g of calcium. Will reassess. 2025: Further evaluation of this patient she still complaining of generalized weakness and nausea she would like to be admitted to the hospital. Spoke with the hospitalist Dr. Anton. Agrees to admit the patient. Patient has had 2 L of IV fluid here in emergency room 2 g of magnesium, 2 g of calcium, IV Rocephin for nitrite positive UTI, nausea medicine, Ativan and still feels unwell she wants to be admitted the hospital. Source: Patient, EMS - Personal History Tetanus Vaccine Date: 2014 - Medical/Surgical History Hx Asthma: No Hx Chronic Respiratory Disease: No Hx Diabetes: No Hx Cardiac Disease: Yes Hx Renal Disease: No Hx Cirrhosis: No Hx Alcoholism: Yes Hx HIV/AIDS: No Hx Splenectomy or Spleen Trauma: No Other PMH: PMHx: Alcoholism, degenerative disc disease, osteoarthritis, scoliosis, heart murmur, a-fib, C difficile-Dec 2015, hx withdrawal, pancreatitis, R leg fx, ME. PSHx: tonsillectomy - Social History Smoking Status: Never smoked Constitutional: Initial Vital Signs Temperature (C) 36.6 C 07/13/17 16:25 Heart Rate 85 07/13/17 16:25 Respiratory Rate 16 07/13/17 16:25 Blood Pressure 149/95 H 07/13/17 16:25 O2 Sat (%) 93 07/13/17 16:25 O2 Delivery Mode Room Air Allergies/Adverse Reactions: Sulfa (Sulfonamide Antibiotics) Allergy (Mild, Verified 07/01/17 12:36) Rash Home Medications: Medication Instructions Recorded Acetaminophen [Tylenol 325mg (*)] 650 mg PO Q4HRS PRN tab 05/08/17 Ferrous Sulfate [Slow Fe 140 MG 140 mg PO DAILY #30 tab.er 05/08/17 (*)] LORazepam [Ativan (*)] 0.5 mg PO Q4HRS PRN #10 tab 05/08/17 Pantoprazole Sodium [Protonix 40mg 40 mg PO BID #60 tab 05/08/17 (*)] Diltiazem Xr [Dilacor Xr] 240 mg PO DAILY 05/31/17 Gabapentin [Neurontin 100 MG (*)] 100 mg PO HS 05/31/17 Sucralfate [Carafate 1 GM (*)] 1 gm PO QID 05/31/17 Multivitamins [Multivitamin (*)] 1 each PO DAILY 06/25/17 Sertraline HCl [Zoloft 100mg (*)] 150 mg PO DAILY 06/25/17 Ondansetron Odt [Zofran Odt 4 mg 4 mg PO Q4PRN PRN #20 tab 07/01/17 (*)] Ascorbic Acid [Vitamin C 500 mg 500 mg PO BID 07/13/17 (*)] Levothyroxine Sodium 125 mcg PO DAILY 07/13/17 Medical Decision Making - Data Points Laboratory Results: Laboratory Results 07/13/17 18:15 07/13/17 18:15 Microbiology Results: MICROBIOLOGY 07/13/17 18:34 Urine,Clean Catch Urine Culture - Preliminary Klebsiella Oxytoca/Raoutella Medications Given: Discontinued Medications Ascorbic Acid (Vitamin C) 500 mg PO BID [facility] Stop: 01/10/18 00:14 Last Admin: 07/14/17 10:02 Dose: 500 mg Diltiazem HCl (Dilacor Xr) 240 mg PO DAILY [facility] Stop: 01/10/18 08:59 Last Admin: 07/14/17 10:02 Dose: 240 mg Ferrous Sulfate (Slow Fe) 140 mg PO DAILY [facility] Stop: 01/10/18 08:59 Last Admin: 07/14/17 10:02 Dose: 140 mg Folic Acid (Folic Acid) 1 mg PO EDNOW ONE Stop: 07/13/17 18:57 Last Admin: 07/13/17 19:27 Dose: 1 mg Gabapentin (Neurontin) 100 mg PO HS [facility] Stop: 01/10/18 00:14 Last Admin: 07/14/17 03:08 Dose: 100 mg Sodium Chloride (Ns) 1,000 mls @ 0 mls/hr IV EDNOW ONE; Wide Open PRN Reason: Protocol Stop: 07/13/17 16:35 Last Admin: 07/13/17 17:07 Dose: 1,000 mls Calcium Gluconate 2 gm/ (Dextrose) 70 mls @ 140 mls/hr IV EDNOW ONE Stop: 07/13/17 19:06 Last Admin: 07/13/17 19:27 Dose: 70 mls Magnesium Sulfate (Magnesium Sulf 2 Gm (Premix)) 50 mls @ 50 mls/hr IV EDNOW ONE Stop: 07/13/17 19:36 Last Admin: 07/13/17 18:44 Dose: 50 mls Sodium Chloride (Ns) 1,000 mls @ 0 mls/hr IV ONCE ONE PRN Reason: Wide Open Stop: 07/13/17 18:57 Last Admin: 07/13/17 19:17 Dose: 1,000 mls Thiamine HCl 500 mg/ Sodium (Chloride) 505 mls @ 505 mls/hr IV ONCE ONE Stop: 07/13/17 19:55 Last Admin: 07/13/17 19:57 Dose: 505 mls Sodium Chloride (Ns) 1,000 mls @ 0 mls/hr IV ONCE ONE PRN Reason: Wide Open Stop: 07/13/17 19:06 Last Admin: 07/13/17 19:17 Dose: 1,000 mls Ceftriaxone Sodium/Dextrose (Rocephin 1 Gm (Premix)) 50 mls @ 100 mls/hr IV EDNOW ONE PRN Reason: Protocol Stop: 07/13/17 20:14 Last Admin: 07/13/17 20:10 Dose: 50 mls Thiamine HCl 500 mg/ Sodium (Chloride) 505 mls @ 505 mls/hr IV DAILY [facility] Stop: 07/17/17 08:59 Last Admin: 07/14/17 10:03 Dose: 505 mls Ceftriaxone Sodium/Dextrose (Rocephin 1 Gm (Premix)) 50 mls @ 100 mls/hr IV DAILY [facility] PRN Reason: Protocol Stop: 08/13/17 08:59 Last Admin: 07/14/17 10:03 Dose: 50 mls Potassium Chloride/Sodium Chloride (Ns W/ 20 Kcl/L) 1,000 mls @ 100 mls/hr IV CONT [facility] Stop: 01/09/18 21:29 Last Admin: 07/14/17 01:00 Dose: 1,000 mls Magnesium Sulfate/Dextrose (Magnesium Sulf 1 Gm (Premix)) 100 mls @ 100 mls/hr IV ONCE ONE Stop: 07/14/17 09:27 Last Admin: 07/14/17 10:04 Dose: 100 mls Calcium Gluconate (Calcium Gluconate 1 Gm (Premix)) 50 mls @ 100 mls/hr IV ONCE ONE Stop: 07/14/17 08:57 Last Admin: 07/14/17 10:03 Dose: 50 mls Levothyroxine Sodium (Synthroid) 125 mcg PO DAILY@0600 [facility] Stop: 01/10/18 05:59 Last Admin: 07/14/17 06:27 Dose: 125 mcg Lorazepam (Ativan Injection) 1 mg IVP EDNOW ONE Stop: 07/13/17 16:35 Last Admin: 07/13/17 17:07 Dose: 1 mg Oxycodone HCl (Oxycodone Ir) 5 - 10 mg PO Q3HRS PRN PRN Reason: Pain, Severe Able to Take PO Stop: 07/23/17 21:22 Last Admin: 07/14/17 00:18 Dose: 5 mg Pantoprazole Sodium (Protonix) 40 mg PO BID [facility] Stop: 01/10/18 00:14 Last Admin: 07/14/17 10:02 Dose: 40 mg Sertraline HCl (Zoloft) 150 mg PO DAILY [facility] Stop: 01/10/18 08:59 Last Admin: 07/14/17 10:02 Dose: 150 mg Sucralfate (Carafate) 1 gm PO QID [facility] Stop: 01/10/18 05:59 Last Admin: 07/14/17 16:53 Dose: 1 gm Throat Lozenges (Cepacol Lozenge) 1 ea PO Q2 PRN PRN Reason: Sore Throat Stop: 01/10/18 03:04 Last Admin: 07/14/17 10:44 Dose: 1 ea Departure - Departure Disposition: [facility] Acute Clinical Impression: Hypomagnesemia Alcohol withdrawal Qualifiers: Complication of substance-induced condition: uncomplicated Qualified Code(s): F10.230 - Alcohol dependence with withdrawal, uncomplicated Vomiting Qualifiers: Vomiting type: unspecified Vomiting Intractability: intractable Nausea presence : with nausea Qualified Code(s): R11.2 - Nausea with vomiting, unspecified UTI (urinary tract infection) Qualifiers: Urinary tract infection type: acute cystitis Hematuria presence: with hematuria Qualified Code(s): N30.01 - Acute cystitis with hematuria Condition: Fair
--- NOTE | 2017-07-13 16:55 | CPEKG ---
Heart Rate: 82 RR Interval: 732 P-R Interval: 172 QRSD Interval: 68 QT Interval: 448 QTC Interval: 524 P [place]: 54 QRS [place]: -3 T Wave [place]: 44 EKG Severity - ABNORMAL ECG - EKG Impression: SINUS RHYTHM EKG Impression: LOW VOLTAGE IN FRONTAL LEADS EKG Impression: PROLONGED QT INTERVAL Electronically Signed By: Jerod Gomez 13-Jul-2017 23:13:41
[2017-07-13 18:26] LABS: PLATELET COUNT 44 10^3/uL (150-400)
[2017-07-13] MEDS ORDERED: CALCIUM GLUCONATE 2 GM in D5W 50 ML IV ONE (18:37)
[2017-07-13] MEDS ORDERED: MAGNESIUM SULF 2 GM/WATER 50 ML IV ONE (18:37)
[2017-07-13 18:41] LABS: INR 1.3 (0.83-1.16); PROTIME(PATIENT) 16.4 SEC (12.0-15.0)
[2017-07-13] MEDS ORDERED: THIAMINE HCL 500 MG in NS 500 ML IV ONE (18:56)
[2017-07-13] MEDS ORDERED: FOLIC ACID 1 MG TAB PO ONE (18:56)
[2017-07-13] MEDS ORDERED: LORazepam 2 MG/ML INJ IVP PRN (21:21)
[2017-07-13] MEDS ORDERED: PROTOCOL CALCIUM 1 DOSE IV PRN (21:22)
[2017-07-13] MEDS ORDERED: PROTOCOL K PHOSPHATE 1 DOSE IV PRN (21:22)
[2017-07-13] MEDS ORDERED: PROTOCOL MAGNESIUM 1 DOSE IV PRN (21:22)
[2017-07-13] MEDS ORDERED: ONDANSETRON 4 MG/2 ML VIAL IVP PRN (21:23)
[2017-07-13] MEDS ORDERED: ONDANSETRON DISINTEGRATING 4 MG TAB PO PRN (21:23)
[2017-07-13] MEDS ORDERED: ACETAMINOPHEN 325 MG TAB PO PRN (21:23)
[2017-07-13] MEDS ORDERED: D5W 1/2 NS W/ 20 KCl/L 1,000 ML IV SCH (21:30)
[2017-07-13] MEDS ORDERED: NS W/ 20 KCl/L 1,000 ML IV SCH (21:30)
[2017-07-13] MEDS ORDERED: PROMETHAZINE HCL 25 MG/ML INJ IVP PRN (21:32)
--- NOTE | 2017-07-13 22:33 | GHP ---
[f rep st] HISTORY AND PHYSICAL DATE OF ADMISSION: 07/13/2017 CHIEF COMPLAINT: Nausea, vomiting, alcohol withdrawal. HISTORY OF PRESENT ILLNESS: This is a 61-year-old female with a complicated past medical history, wh o presents with a chief complaint of being in alcohol withdrawal. She tells me that her last drink w as Sunday. She quit drinking because she ran out of liquor and did not feel that she should be dr landaverde. She tells me that she wants to quit drinking at this point because it is bad for her heart. She has had multiple episodes of vomiting over the past 2 days; this has all been nonbloody. She tel ls me she has vomited about every 30 minutes. She has a sore throat, but no significant abdominal pa in. She has not had any diarrhea. She has had multiple ER visits and admissions here. Notably, she had a cardiac arrest at the end of April of this year after having an aspiration event. I count 8 previous admissions here in the last year and 20 or 30 emergency department visits. PAST MEDICAL HISTORY: 1. Paroxysmal atrial fibrillation, not on anticoagulation due to fall risk. 2. Alcohol abuse with history of withdrawal. 3. Alcoholic gastritis. 4. History of alcoholic ketoacidosis. 5. Recent history of cardiac arrest due to aspiration. 6. History of C difficile colitis. 7. History of gastric ulcer, Lisa-Murphy tear, with GI bleeding. 8. History of DVT in the right lower extremity. Currently off anticoagulation due to fall risk. 9. History of PE, which was small, on her 2 previous hospitalizations ago. 10. Alcohol dependence and abuse. 11. Pancreatitis. 12. Coagulopathy. 13. Depression. 14. Degenerative disk disease. 15. Arthritis. 16. Chronic pain. PAST SURGICAL HISTORY: Tonsillectomy and adenoidectomy. MEDICATIONS: Please see medication reconciliation. ALLERGIES: Sulfa. FAMILY HISTORY: Mother had esophageal cancer. SOCIAL HISTORY: She drinks alcohol, though she wants to quit. She lives alone. REVIEW OF SYSTEMS: A 10-point review of systems is negative except per HPI. PHYSICAL EXAMINATION: VITAL SIGNS: Blood pressure 135/95, heart rate 98, respiration rate 20, satti ng 98% on room air. Temperature is 36.8. GENERAL: The patient is pleasant, appears comfortable, in no acute distress. HEENT: Shows her to be normocephalic, atraumatic. CARDIOVASCULAR: Regular rat e and rhythm. No murmurs, rubs, or gallops. PULMONARY: Lungs clear to auscultation bilaterally. A BDOMEN: Soft, nontender, nondistended. SKIN: Shows no rash. : Shows no Swanson. NEUROLOGIC: Sh ows her to be alert and oriented x3. She is moving all extremities. She is not really very tremulou s. PSYCHIATRIC: Shows a normal mood and affect. LABORATORY DATA: White count is 2.7, hemoglobin is 10, platelets are 44. INR is 1.3. Sodium is 132 . Magnesium is 1. Total bilirubin is 2.1. Alkaline phosphatase is 219. Albumin is 2.5. Urinalysi s shows 15-25 whites, 3+ bacteria, positive nitrites. Alcohol level is undetectable. DATA: 1. I discussed with Dr. Gomez. Will admit to med/surg. 2. I personally viewed and interpreted her chest x-ray. Possible new left lower lobe pneumonia. 3. EKG: Which I am personally unable to view due to trace view master not being functional. The re port on this is prolonged QT interval. IMPRESSION AND PLAN: 1. Alcohol withdrawal: I am unclear exactly how severe this withdrawal will be. I placed her on Cl inical [place] Withdrawal Assessment. She will get thiamine. She desires to quit drinking. 2. Nausea/vomiting: May be gastritis versus alcohol withdrawal. Will treat symptomatically. Will follow. 3. Severe electrolyte abnormalities: Replete aggressively, including potassium/magnesium. Check ph osphorus. Place her on telemetry. 4. Possible urinary tract infection: Agree with Rocephin. will continue this. Check her urine cul ture. 5. Left lower lobe pneumonia: Will continue Rocephin. Doubt this is an atypical at this point. I have checked a respiratory pathogen PCR. Consider adding atypical coverage if concern. 6. Pancytopenia due to alcohol: Will need to follow this. Her platelets are quite low at 44. 7. Atrial fibrillation: She is not an anticoagulation candidate due to her frequent falls, as well as thrombocytopenia. If she gets off alcohol and her platelets improve, could reconsider that. Will continue diltiazem. 8. History of a small-volume PV: As above, not an anticoagulation candidate. Follow her platelets. If they improve and she gets off alcohol, consider anticoagulation. 9. Venous thromboembolism risk is moderate to high. The platelets are very low. If they rise above 50, I would start her on Lovenox. /[id number]/MODL
[2017-07-14] MEDS: oxyCODONE IR 5 MG TAB PO PRN ×2 (00:03→00:18)
[2017-07-14] MEDS ORDERED: GABAPENTIN 100 MG CAP PO SCH (00:15)
--- NOTE | 2017-07-14 02:11 | PDMN ---
Medical Necessity Medical necessity: C/M review: est. > 2 MN LOS for eval and TX of acute and persistent alcohol withdrawal, nausea, vomiting, severe electrolye abnormalities , possible urinary tract infection, left lower lobe pneumonia requiring IV Thiamine, ongoing IV Ceftriaxone, electrolyte repletion, CIWA protocol, cardiac monitoring, pulse oximetry, frequent VS, comorbid pancytopenia due to alcohol, atrial fibrillation, history of small volume PE, alcohol abuse with history of withdrawal, alcoholic gastritis, alcoholic ketoacidosis, recent cardiac arrest due to aspiration, C. difficiile colitis, gastric ulcer, Lisa- Salty tear with GI bleeding, DVT of RLE - currently off anticoagulation due to risk, alcohol dependence, pancreatitis, coagulopathy, depression, chronic pain per H/P.
[2017-07-14] MEDS: ASCORBIC ACID 500 MG TAB PO SCH ×2 (03:07→10:02)
[2017-07-14] MEDS: PANTOPRAZOLE SODIUM 40 MG TAB PO SCH ×2 (03:10→10:02)
[2017-07-14] MEDS: CEPACOL LOZENGE PO PRN ×2 (03:30→10:44)
[2017-07-14 05:19] LABS: PLATELET COUNT 44 10^3/uL (150-400)
[2017-07-14] MEDS ORDERED: LEVOTHYROXINE 125 MCG TAB PO SCH (06:00)
[2017-07-14] MEDS: SUCRALFATE 1 GM TAB PO SCH ×2 (06:27→16:53)
[2017-07-14] MEDS ORDERED: CALCIUM GLUCONATE 50 ML IV ONE (08:28)
[2017-07-14] MEDS ORDERED: MAGNESIUM SULF 1 GM/DEXTROSE 100 ML IV ONE (08:28)
[2017-07-14] MEDS ORDERED: ENOXAPARIN 40 MG/0.4 ML SYR SC SCH (09:00)
[2017-07-14] MEDS ORDERED: SERTRALINE HCL 100 MG TAB PO SCH (09:00)
[2017-07-14] MEDS ORDERED: THIAMINE HCL 500 MG in NS 500 ML IV SCH (09:00)
[2017-07-14] MEDS ORDERED: FERROUS SULFATE 140 MG TAB.ER PO SCH (09:00)
[2017-07-14] MEDS ORDERED: DILTIAZEM XR 240 MG CAP PO SCH (09:00)
--- NOTE | 2017-07-14 14:41 | PDIAF ---
- Diagnosis Diagnosis: Nausea, vomiting, alcohol withdraw, hyponatremia Code Status: Full Code - Medication Management Discharge Medications: Medications to Continue on Transfer Acetaminophen [Tylenol 325mg (*)] 650 mg PO Q4HRS PRN tab 05/08/17 [Last Taken 07/13/17] Ferrous Sulfate [Slow Fe 140 MG (*)] 140 mg PO DAILY #30 tab.er 05/08/17 [Last Taken 07/13/17] LORazepam [Ativan (*)] 0.5 mg PO Q4HRS PRN #10 tab 05/08/17 [Last Taken 07/13/17 ] Pantoprazole Sodium [Protonix 40mg (*)] 40 mg PO BID #60 tab 05/08/17 [Last Taken 07/13/17] Diltiazem Xr [Dilacor Xr] 240 mg PO DAILY 05/31/17 [Last Taken 07/13/17] Gabapentin [Neurontin 100 MG (*)] 100 mg PO HS 05/31/17 [Last Taken 07/13/17] Sucralfate [Carafate 1 GM (*)] 1 gm PO QID 05/31/17 [Last Taken 07/13/17] Multivitamins [Multivitamin (*)] 1 each PO DAILY 06/25/17 [Last Taken 07/13/17] Sertraline HCl [Zoloft 100mg (*)] 150 mg PO DAILY 06/25/17 [Last Taken 07/13/17] Ondansetron Odt [Zofran Odt 4 mg (*)] 4 mg PO Q4PRN PRN #20 tab 07/01/17 [Last Taken 07/13/17] Ascorbic Acid [Vitamin C 500 mg (*)] 500 mg PO BID 07/13/17 [Last Taken 07/13/17 ] Levothyroxine Sodium 125 mcg PO DAILY 07/13/17 [Last Taken 07/13/17] [employer] Antibiotics: NA Discharge Medications: Refer to the Discharge Home Medication list for PRN reason. PICC Care - Routine: N/A - Orders Services needed: Home Care, Registered Nurse, Physical Therapy, Occupational Therapy Home Care Face to Face: I certify that this patient was under my care and that I had the required [id number] encounter meeting the encounter requirements on the discharge day. My findings support the fact that the patient is homebound as defined in Home Care Face to Face Continued: [facility] Chapter 7 Medicare Benefits Manual 30.1.1 , The condition of the patient is such that there exists a normal inability to leave home and consequently, leaving home would require a considerable and taxing effort. Isolation Type: None Oxygen: NA Diet Recommendation: no restrictions on diet, other (please abstain from alcohol ) Swanson: Not applicable - Labs/Radiology CBC w/diff Date: 07/19/17 CMP Date: 07/19/17 Call or Fax Lab and Imaging Results to: Dr. Nagel - Follow Up Care Current Providers and Referrals: Alice Nagel MD [Medical Doctor] - follow up in 1 week Patient,NotPresent [Primary Care Provider] - As per Instructions
[2017-07-14 16:27] VITALS: BP 108/65; PULSE 78; RESP 15; TEMP 98.1; O2SAT 91
--- NOTE | 2017-07-14 17:49 | ASDISCHSUM ---
Discharge Information Plan Status:Home with Home Health Medically Cleared to Leave: Discharge Date:07/14/2017 05:05 PM CM D/C Disposition:Home Health Service ADT D/C Disposition:Home Health Service Projected Discharge Date:07/14/2017 11:00 AM Transportation at D/C:Taxicab Discharge Delay Reason: Follow-Up Date:07/14/2017 11:00 AM Discharge Slot: Final Diagnosis: Placement Information Referral Type:*Home Health Care Services Referral ID:[id number] Provider Name:[facility] (formerly [facility]) Address 1[address] [address] [facility] [address] [facility] [place] [facility] [place] Address 2: City:[place] Selection Factors: State:[place] Patient Contact Information Contact Name:BATSHEVA Relationship:Friend Address: Work Phone: City: [facility] Phone: [facility] [[email or web address] Code: Email: Financial Information Financial Class:Medicaid Primary Plan Desc:MEDICAID HEALTH [employer] Primary Plan Number:[id number] Secondary Plan Desc: Secondary Plan Number: Assessment Information Case Management Discharge Plan Note Case Management Discharge Discharge Order Complete? Answers: Yes Patient to Obtain Answers: Independently Medications Transportation Arranged Answers: Taxi - Self Pay Faxed Final Orders Answers: Yes Agency/Facility Transfer Answers: Yes Report Printed & Faxed to Receiving Agency Family Notified Answers: No Discharge Comments Notes: Pt will dc home today and will be followed by [facility] (PT/OT and RN for med management)- pt in agreement with this. Spoke w/Arabella at [facility], faxed referral and orders/info and they are able to accept pt. They were unable to open her up in May/c she did not have PCP but she does have PCP now, Dr Briggs. Pt will take cab home. Also offered pt resources for ETOH treatment but she stated she already has resource info and plans to get back w/her AA group. "[facility]". Encouraged pt to follow up w/supports through AA yusuf she does desire to stop drinking. Date Signed: 07/14/2017 05:07 PM Electronically Signed By:Maris Martinez RN Intervention Information
--- NOTE | 2017-07-14 19:26 | PDDCSUM ---
Discharge Summary Discharge Summary: DISCHARGE SUMMARY FOLLOW-UP ITEMS: Please have labs repeated in 1 week and sent to primary care provider Urine culture pending at time discharge to be followed up by primary care provider DATE OF ADMISSION: 07/13/2017 DATE OF DISCHARGE: 07/14/2017 DISCHARGE DIAGNOSES: 1. Acute alcohol withdrawal 2. Acute hyponatremia 3. Acute hypomagnesemia 4. Pancytopenia secondary to alcoholism 5. Paroxysmal atrial fibrillation 6. Asymptomatic bacteriuria CONSULTATIONS: None PROCEDURES / IMAGING: Resolving left lower lobe infiltrate CHIEF COMPLAINT: Acute nausea and vomiting SUBJECTIVE: Patient is feeling well at time discharge, she has no further nausea and vomiting PHYSICAL EXAM ON DISCHARGE: Systolic blood pressure 110-150, heart rate 80, afebrile overnight, satting 95% on room air, alert awake oriented x3, no tremulousness, lungs are clear to auscultation bilaterally, heart rhythm is regular LABS ON DISCHARGE: Creatinine 0.5, magnesium 1.5, potassium 3.5, serum sodium 134, white blood cell count 3100, hemoglobin 8.8, platelets 50283, INR 1.3, urinalysis with positive nitrates, positive white blood cells, negative leukocyte esterase, respiratory viral panel negative, total bilirubin downtrend 1.3, procalcitonin 0.09. HOSPITAL COURSE BY PROBLEM: The patient presented with acute alcohol withdrawal as evidenced by nausea vomiting anxiety and tremulousness, and she was treated on CIWA protocol with Ativan, thiamine, IV fluids. In the context of the symptoms, the patient was noted to have severely electrolyte abnormalities including acute hyponatremia, acute hypomagnesemia, and elevated bilirubin level. She was treated supportively with supplemental electrolytes, supplemental IV fluids, and her lab values trended towards normal. She was evaluated for any other infectious etiologies, and she was ruled out for urine infection with a urinalysis containing white blood cells and nitrites, but no leukocyte esterase, no urinary symptoms, and most likely a result of asymptomatic bacteriuria. Consequently, antibiotics were not continued. A chest x-ray also showed possible resolving left lower lobe infiltrate, but her procalcitonin level was normal, white blood cell count was normal, and she is not experiencing any pulmonary symptoms, so antibiotics were not continued. The patient was feeling exceptionally better with supportive care and she felt safe for discharge home. She was evaluated by our therapy modalities and they deemed that she was safe as well. She was seen by case management who connected her with outpatient services, and we both provided her with alcohol cessation counseling prior to discharge as well. We also encourage medication adherence, and the patient will continue her diltiazem as scheduled, as well as her other home medications. DISCHARGE MEDICATIONS: Please see official discharge medication reconciliation sheet in chart , continue all home medications without any changes. DISCHARGE INSTRUCTIONS: Please follow up with primary care provider within 1 week. TIME SPENT: Greater than 30 minutes were spent on direct patient care, as well as discharge planning and preparation. The patient's condition improved much more rapidly than originally anticipated by Dr. Anton, and now that the patient's condition has reasonably stabilized and she has responded exceptionally well to her highly efficient expeditious care provided by her nursing team, hospitalist provider, the patient is safe to be discharged home.
--- NOTE | 2017-07-16 15:31 | ASMTCMCOM ---
CM Note CM Note Notes: 07/16/2017 Case Management Note Referred pt to [facility] Medicaid support. Corina can be reached at [phone]. [facility] to contact pt tomorrow for resourcing in the community. Date Signed: 07/16/2017 03:30 PM Electronically Signed By:Marlena Sandoval RN
[2017-07-17] MEDS ORDERED: THIAMINE HCL 100 MG TAB PO SCH (09:00)
== END 2017-07-14 17:05 | disposition home health service (06) | DRG 897 ==
LOC: EDUNIT# → OBSVTOIN 20:26 → F2W 21:46
PROVIDERS: ADMIT Student in an Organized Health Care Education/Training Program; ATTEND Student in an Organized Health Care Education/Training Program
DX: F10.239 Alcohol dependence with withdrawal, unspecified (principal); I48.0 Paroxysmal atrial fibrillation; E83.42 Hypomagnesemia; E87.1 Hypo-osmolality and hyponatremia; D61.818 Other pancytopenia; Z86.711 Personal history of pulmonary embolism; Z86.718 Personal history of other venous thrombosis and embolism; Z87.11 Personal history of peptic ulcer disease
CPT/HCPCS: 96365; 97116-GP; 97161-GP; G0480; J0610; J0696; J2060; J3411; J3475

== ENCOUNTER 2017-07-27 00:08 | Emergency (ER) | payer MEDICAID ==
[2017-07-27] MEDS ORDERED: NS 1,000 ML IV ONE ×2 (00:24)
[2017-07-27] MEDS ORDERED: METOCLOPRAMIDE 10 MG/2 ML VIAL IVP ONE (00:49)
[2017-07-27] MEDS ORDERED: LORazepam 2 MG/ML INJ IVP ONE (00:49)
[2017-07-27] MEDS ORDERED: FAMOTIDINE 20 MG/NACL 50 ML IV ONE (00:49)
--- NOTE | 2017-07-27 00:58 | EDPHY ---
H & P Stated Complaint: n/v/d for 18 hrs with abd pain Time Seen by Provider: 07/27/17 00:08 HPI/ROS: HPI The patient presents with nausea, vomiting, epigastric abdominal pain which have been present for the last 18 hr and getting progressively worse. The patient's last alcoholic drink was approximately 2 days ago. About a day later she developed nausea and has had multiple episodes of nonbloody nonbilious emesis. Since then she has developed epigastric abdominal pain which is achy in nature and constant without radiation. She is brought in by ambulance from her home. Paramedics gave Zofran 0 DT with some improvement in her symptoms.. REVIEW OF SYSTEMS Constitutional: No fever, no chills. Eyes: No discharge. ENT: No sore throat. Cardiovascular: No chest pain, no palpitations. Respiratory: No cough, no shortness of breath. Gastrointestinal: No abdominal pain, no vomiting. Genitourinary: No hematuria. Musculoskeletal: No back pain. Skin: No rashes. Neurological: No headache. PMHx: Chronic alcohol abuse, atrial fibrillation, history of pancreatitis, history of ankle fracture, cardiac arrest Soc Hx: Lives at home, chronic alcohol abuse PHYSICAL General Appearance: Alert, no distress Eyes: Pupils equal and round no pallor or injection ENT, Mouth: Mucous membranes moist Respiratory: There are no retractions, lungs are clear to auscultation Cardiovascular: Regular rate and rhythm Gastrointestinal: Abdomen is soft with mild epigastric tenderness, no masses, bowel sounds normal Neurological: A&O, moves all extremities Skin: Warm and dry, no rashes Musculoskeletal: Neck is supple non tender Extremities: symmetrical, full range of motion Psychiatric: Patient is oriented X 3, there is no agitation Source: Patient, EMS, Old records Exam Limitations: No limitations - Personal History Current Tetanus/Diphtheria Vaccine: Yes Current Tetanus Diphtheria and Acellular Pertussis (TDAP): Yes Tetanus Vaccine Date: 2014 - Medical/Surgical History Hx Asthma: No Hx Chronic Respiratory Disease: No Hx Diabetes: No Hx Cardiac Disease: Yes Hx Renal Disease: No Hx Cirrhosis: No Hx Alcoholism: Yes Hx HIV/AIDS: No Hx Splenectomy or Spleen Trauma: No Other PMH: PMHx: Alcoholism, degenerative disc disease, osteoarthritis, scoliosis, heart murmur, a-fib, C difficile-Dec 2015, hx withdrawal, pancreatitis, R leg fx, PA. PSHx: tonsillectomy - Social History Smoking Status: Never smoked Constitutional: Initial Vital Signs Temperature (C) 37.5 C 07/27/17 00:21 Heart Rate 76 07/27/17 00:21 Respiratory Rate 16 07/27/17 00:21 Blood Pressure 153/88 H 07/27/17 00:21 O2 Sat (%) 96 07/27/17 00:21 O2 Delivery Mode Room Air Allergies/Adverse Reactions: Sulfa (Sulfonamide Antibiotics) Allergy (Mild, Verified 07/27/17 00:21) Rash Home Medications: Medication Instructions Recorded Acetaminophen [Tylenol 325mg (*)] 650 mg PO Q4HRS PRN tab 05/08/17 Ferrous Sulfate [Slow Fe 140 MG 140 mg PO DAILY #30 tab.er 05/08/17 (*)] LORazepam [Ativan (*)] 0.5 mg PO Q4HRS PRN #10 tab 05/08/17 Pantoprazole Sodium [Protonix 40mg 40 mg PO BID #60 tab 05/08/17 (*)] Diltiazem Xr [Dilacor Xr] 240 mg PO DAILY 05/31/17 Gabapentin [Neurontin 100 MG (*)] 100 mg PO HS 05/31/17 Sucralfate [Carafate 1 GM (*)] 1 gm PO QID 05/31/17 Multivitamins [Multivitamin (*)] 1 each PO DAILY 06/25/17 Sertraline HCl [Zoloft 100mg (*)] 150 mg PO DAILY 06/25/17 Ondansetron Odt [Zofran Odt 4 mg 4 mg PO Q4PRN PRN #20 tab 07/01/17 (*)] Ascorbic Acid [Vitamin C 500 mg 500 mg PO BID 07/13/17 (*)] Levothyroxine Sodium 125 mcg PO DAILY 07/13/17 Medical Decision Making Differential Diagnosis: This is a 62-year-old female with history of alcohol abuse, alcoholic pancreatitis, atrial fibrillation, recent arrest in the emergency department who presents brought in by ambulance for epigastric abdominal pain, nausea and vomiting. This patient is a frequent visitor to the emergency department. She has multiple similar presentations, usually caused by alcoholic gastritis or pancreatitis. I suspect this is the cause of her symptoms. I would also consider gastroenteritis or biliary colic. In the emergency department, patient was given IV fluids, famotidine, Ativan for withdrawal symptoms and Reglan for vomiting. The patient felt much better after this and was able to tolerate ice chips. Labs were checked and were at their baseline with a elevation in her liver tests. Lipase was normal. Anemia was stable. She will be discharged home. I feel she is likely suffering from alcoholic gastritis with mild alcohol withdrawal. I have counseled her on alcohol cessation. - Data Points Laboratory Results: Laboratory Results 07/27/17 01:30 07/27/17 01:30 07/27/17 07/27/17 07/27/17 01:30 01:30 01:08 WBC 3.72 10^3/uL L 10^3/uL REJ (3.80-9.50) RBC 2.96 10^6/uL L 10^6/uL REJ (4.18-5.33) Hgb 9.6 g/dL L g/dL REJ (12.6-16.3) Hct 29.0 % L % REJ (38.0-47.0) MCV 98.0 fL fL REJ (81.5-99.8) MCH 32.4 pg pg REJ (27.9-34.1) MCHC 33.1 g/dL g/dL REJ (32.4-36.7) RDW 17.6 % H % REJ (11.5-15.2) Plt Count 87 10^3/uL L 10^3/uL REJ (150-400) MPV 11.3 fL fL REJ (8.7-11.7) Neut % (Auto) 79.6 % H % REJ (39.3-74.2) Lymph % (Auto) 15.3 % % REJ (15.0-45.0) [place] % (Auto) 4.0 % L % REJ (4.5-13.0) Eos % (Auto) 0.0 % L % REJ (0.6-7.6) Baso % (Auto) 0.8 % % REJ (0.3-1.7) Nucleat RBC Rel Count 0.0 % % REJ (0.0-0.2) Absolute Neuts (auto) 2.96 10^3/uL 10^3/uL REJ (1.70-6.50) Absolute Lymphs (auto) 0.57 10^3/uL L 10^3/uL REJ (1.00-3.00) Absolute Monos (auto) 0.15 10^3/uL L 10^3/uL REJ (0.30-0.80) Absolute Eos (auto) 0.00 10^3/uL L 10^3/uL REJ (0.03-0.40) Absolute Basos (auto) 0.03 10^3/uL 10^3/uL REJ (0.02-0.10) Absolute Nucleated RBC 0.00 10^3/uL 10^3/uL REJ (0-0.01) Immature Gran % 0.3 % % REJ (0.0-1.1) Immature Gran # 0.01 10^3/uL 10^3/uL REJ (0.00-0.10) Turbidity Sodium 135 mEq/L mEq/L (135-145) Potassium 4.1 mEq/L mEq/L (3.5-5.2) Chloride 103 mEq/L mEq/L (97-110) Carbon Dioxide 26 mEq/l mEq/l (22-31) Anion Gap 6 mEq/L L mEq/L (8-16) BUN 4 mg/dL L mg/dL (7-23) Creatinine 0.5 mg/dL L mg/dL (0.6-1.0) Estimated GFR > 60 Glucose 93 mg/dL mg/dL (70-100) Calcium 8.2 mg/dL L mg/dL (8.5-10.4) Total Bilirubin 2.3 mg/dL H mg/dL (0.1-1.4) Conjugated Bilirubin 0.6 mg/dL H mg/dL (0.0-0.5) Unconjugated Bilirubin 1.7 mg/dL H mg/dL (0.0-1.1) AST 71 IU/L H IU/L (14-46) ALT 51 IU/L IU/L (9-52) Alkaline Phosphatase 224 IU/L H IU/L (38-126) Total Protein 5.0 g/dL L g/dL (6.3-8.2) Albumin 2.7 g/dL L g/dL (3.5-5.0) Lipase 23 IU/L IU/L (23-300) Specimen Hemolysis 07/27/17 07/27/17 00:48 00:48 WBC TNP RBC TNP Hgb TNP Hct TNP MCV TNP MCH TNP MCHC TNP RDW TNP Plt Count TNP MPV TNP Neut % (Auto) TNP Lymph % (Auto) TNP [place] % (Auto) TNP Eos % (Auto) TNP Baso % (Auto) TNP Nucleat RBC Rel Count TNP Absolute Neuts (auto) TNP Absolute Lymphs (auto) TNP Absolute Monos (auto) TNP Absolute Eos (auto) TNP Absolute Basos (auto) TNP Absolute Nucleated RBC TNP Immature Gran % TNP Immature Gran # TNP Turbidity REJ Sodium REJ Potassium REJ Chloride REJ Carbon Dioxide REJ Anion Gap REJ BUN REJ Creatinine REJ Estimated GFR REJ Glucose REJ Calcium REJ Total Bilirubin REJ Conjugated Bilirubin REJ Unconjugated Bilirubin REJ AST REJ ALT REJ Alkaline Phosphatase REJ Total Protein REJ Albumin REJ Lipase REJ Specimen Hemolysis REJ Medications Given: Discontinued Medications Sodium Chloride (Ns) 1,000 mls @ 0 mls/hr IV EDNOW ONE; Wide Open PRN Reason: Protocol Stop: 07/27/17 00:25 Last Admin: 07/27/17 00:31 Dose: 1,000 mls Sodium Chloride (Ns) 1,000 mls @ 0 mls/hr IV EDNOW ONE; Wide Open PRN Reason: Protocol Stop: 07/27/17 00:25 Last Admin: 07/27/17 00:31 Dose: 1,000 mls Famotidine/Sodium Chloride (Pepcid 20 Mg (Premix)) 50 mls @ 200 mls/hr IV EDNOW ONE Stop: 07/27/17 01:03 Last Admin: 07/27/17 00:53 Dose: 50 mls Lorazepam (Ativan Injection) 1 mg IVP EDNOW ONE Stop: 07/27/17 00:50 Last Admin: 07/27/17 00:53 Dose: 1 mg Metoclopramide HCl (Reglan Injection) 10 mg IVP EDNOW ONE Stop: 07/27/17 00:50 Last Admin: 07/27/17 00:53 Dose: 10 mg Departure - Departure Disposition: Home, Routine, Self-Care Clinical Impression: Alcoholic gastritis Alcohol withdrawal Qualifiers: Complication of substance-induced condition: uncomplicated Qualified Code(s): F10.230 - Alcohol dependence with withdrawal, uncomplicated Vomiting Qualifiers: Vomiting type: unspecified Vomiting Intractability: non-intractable Nausea presence: with nausea Qualified Code(s): R11.2 - Nausea with vomiting, unspecified Condition: Good Instructions: Gastritis (ED), At-Risk Alcohol Use (ED) Additional Instructions: I recommend that you stop drinking alcohol as this is likely causing her symptoms. Please return to the emergency department if your worse in any way. Referrals: Makenzie Briggs MD [Primary Care Provider] - As per Instructions
[2017-07-27 01:42] LABS: PLATELET COUNT 87 10^3/uL (150-400)
[2017-07-27 03:18] VITALS: BP 150/80; PULSE 87; RESP 18; TEMP 99.3; O2SAT 96
== END 2017-07-27 03:18 | disposition home or self-care (01) ==
LOC: EDUNIT#
DX: K29.20 Alcoholic gastritis without bleeding (principal); F10.230 Alcohol dependence with withdrawal, uncomplicated; E86.9 Volume depletion, unspecified; I25.2 Old myocardial infarction
CPT/HCPCS: 96374; J2060; J2765

== ENCOUNTER → 2017-08-01 | Outpatient (CLI) | payer MEDICAID | LOC: FIMAGING 14:31 | PROVIDERS: ATTEND Internal Medicine | DX: M79.89 Other specified soft tissue disorders (principal) ==

== ENCOUNTER 2017-08-03 17:59 | Inpatient (IN) | payer MEDICAID ==
--- NOTE | 2017-08-03 20:15 | CPEKG ---
Heart Rate: 66 RR Interval: 909 P-R Interval: 164 QRSD Interval: 74 QT Interval: 472 QTC Interval: 495 P [place]: -6 QRS [place]: -3 T Wave [place]: 42 EKG Severity - ABNORMAL ECG - EKG Impression: SINUS RHYTHM EKG Impression: ATRIAL PREMATURE COMPLEX EKG Impression: LOW VOLTAGE IN FRONTAL LEADS EKG Impression: BORDERLINE R WAVE PROGRESSION, ANTERIOR LEADS EKG Impression: BORDERLINE PROLONGED QT INTERVAL Electronically Signed By: rEma Luis 03-Aug-2017 21:03:32
--- NOTE | 2017-08-03 20:29 | EDPHY ---
H & P Time Seen by Provider: 08/03/17 19:16 HPI/ROS: CHIEF COMPLAINT: Loss of vision, leg swelling Limitations: difficult historian HISTORY OF PRESENT ILLNESS: 62-year-old female with a history of alcoholism presents with loss of vision and the leg swelling. Loss of right-sided vision for 4-5 days. The vision loss has been constant since then. No associated weakness or numbness. No recent head trauma, prior similar symptoms and no prior history of CVA. She also complains of bilateral lower leg swelling for the past week. Ultrasound of the right lower extremity on 08/01/2017 revealed no evidence of DVT. No shortness of breath or chest pain. REVIEW OF SYSTEMS: Constitutional: No fever, no chills Eyes: No visual changes ENT: No sore throat Respiratory: No cough, no shortness of breath Cardiac: No chest pain Gastrointestinal: No nausea, no vomiting, no abdominal pain Genitourinary: no dysuria Skin: No rash Neurological: No headache, no weakness Psychiatric: No depression Past Medical/Surgical History: Alcoholism Atrial fibrillation, paroxysmal Social History: Lives in own home Smoking Status: Never smoked Physical Exam: General Appearance: Alert, pleasant at times, yelling at other times Eyes: Pupils equal and round, no conjunctival pallor or injection ENT, Mouth: Mucous membranes moist Neck: Normal inspection Respiratory: Lungs are clear to auscultation Cardiovascular: Regular rate and rhythm Gastrointestinal: Abdomen is soft and nontender Neurological: Alert, oriented x3, cranial nerves III through XII intact, right homonymous hemianopsia, motor 5/5, sensory intact to light touch, normal gait. Skin: Warm and dry, no rash Extremities: Bilateral pedal edema, right greater than left Psychiatric: Fluctuating affect Constitutional: Initial Vital Signs Temperature (C) 36.6 C 08/03/17 18:04 Heart Rate 85 08/03/17 18:04 Respiratory Rate 14 08/03/17 18:04 Blood Pressure 116/77 08/03/17 18:04 O2 Sat (%) 98 08/03/17 18:04 O2 Delivery Mode Room Air Allergies/Adverse Reactions: Sulfa (Sulfonamide Antibiotics) Allergy (Mild, Verified 07/27/17 00:21) Rash Home Medications: Medication Instructions Recorded Acetaminophen [Tylenol 325mg (*)] 650 mg PO Q4HRS PRN tab 05/08/17 Ferrous Sulfate [Slow Fe 140 MG 140 mg PO DAILY #30 tab.er 05/08/17 (*)] LORazepam [Ativan (*)] 0.5 mg PO Q4HRS PRN #10 tab 05/08/17 Pantoprazole Sodium [Protonix 40mg 40 mg PO BID #60 tab 05/08/17 (*)] Diltiazem Xr [Dilacor Xr] 240 mg PO DAILY 05/31/17 Gabapentin [Neurontin 100 MG (*)] 100 mg PO HS 05/31/17 Sucralfate [Carafate 1 GM (*)] 1 gm PO QID 05/31/17 Multivitamins [Multivitamin (*)] 1 each PO DAILY 06/25/17 Sertraline HCl [Zoloft 100mg (*)] 100 mg PO DAILY 06/25/17 Ondansetron Odt [Zofran Odt 4 mg 4 mg PO Q4PRN PRN #20 tab 07/01/17 (*)] Ascorbic Acid [Vitamin C 500 mg 500 mg PO BID 07/13/17 (*)] Levothyroxine Sodium 125 mcg PO DAILY 07/13/17 HYDROmorphone HCL [Dilaudid 2 mg 2 mg PO Q4H PRN 08/03/17 (*)] Methocarbamol [Robaxin 500 mg (*)] 1,000 mg PO HS 08/03/17 oxyCODONE IR [Oxycodone Ir (*)] 5 mg PO Q4H PRN 08/03/17 traZODone [traZODONE 50MG (*)] 50 mg PO HS PRN 08/03/17 Medical Decision Making - Diagnostics EKG Interpretation: EKG interpreted by me reveals normal sinus rhythm, rate 66, Pac, low voltage in the frontal leads, poor R-wave progression Imaging Results: Head CT 08/03/17 19:27 Impression: There is no acute intracranial abnormality identified on this unenhanced CT evaluation, or substantial change from 04/24/2016. If there is further clinical concern regarding the patient's symptoms, MR imaging is suggested, if not otherwise contraindicated. Findings were discussed with STEVE RODRIGUEZ MD at 20:06, on 08/03/2017. ED Course/Re-evaluation: This patient presents with subacute right homonymous hemianopsia. The remainder of the neurologic exam is normal. Presentation c/w subacute CVA. Stat CT scan of the brain reveals no evidence of acute infarct or hemorrhage. Aspirin 325 mg orally given. CTA of the brain and neck ordered to rule out large vessel disease. She also presents with bilateral lower extremity swelling, with a recent negative ultrasound of the right lower extremity. The swelling is most likely secondary to inactivity, no evidence of DVT, CHF or infection. Communication difficult with this pt, and I'm unable to obtain a complete history, because she is quickly angered and creates challenging interactions. However, she agrees to admission for further evaluation. The hospitalist service was consulted for admission for further eval of vision loss. Differential Diagnosis: Altered mental status including but not limited to hypoglycemia, infectious process, electrolyte abnormality, head injury, CVA, and intoxicants. - Data Points Medications Given: Acetaminophen (Tylenol) 650 mg PO Q4HRS PRN PRN Reason: Pain, Mild/Fever, Can Take PO Stop: 01/30/18 22:39 Last Admin: 08/06/17 08:57 Dose: 650 mg Ascorbic Acid (Vitamin C) 500 mg PO BID ZHANE Stop: 01/31/18 20:59 Last Admin: 08/06/17 08:45 Dose: 500 mg Aspirin (Aspirin) 81 mg PO DAILY ZHANE Stop: 01/31/18 08:59 Last Admin: 08/06/17 08:45 Dose: 81 mg Diltiazem HCl (Dilacor Xr) 240 mg PO DAILY ZHANE Stop: 02/01/18 08:59 Last Admin: 08/06/17 08:44 Dose: 240 mg Folic Acid (Folic Acid) 1 mg PO DAILY ZHANE Stop: 01/30/18 22:44 Last Admin: 08/06/17 08:44 Dose: 1 mg Gabapentin (Neurontin) 100 mg PO HS ZHANE Stop: 01/31/18 20:59 Last Admin: 08/05/17 20:01 Dose: 100 mg Sodium Chloride (Ns) 1,000 mls @ 75 mls/hr IV CONT ZHANE Stop: 01/30/18 22:44 Last Admin: 08/03/17 23:54 Dose: 1,000 mls Thiamine HCl 500 mg/ Sodium (Chloride) 505 mls @ 505 mls/hr IV Q8HRS ZHANE Stop: 01/31/18 21:59 Last Admin: 08/06/17 05:49 Dose: 505 mls Levothyroxine Sodium (Synthroid) 125 mcg PO DAILY ZHANE Stop: 02/01/18 08:59 Last Admin: 08/05/17 09:11 Dose: 125 mcg Lorazepam (Ativan Injection) 0 mg IVP Q1H PRN; Protocol PRN Reason: Alcohol Withdrawal w/IV access Stop: 01/30/18 22:41 Last Admin: 08/06/17 08:56 Dose: 1 mg Methocarbamol (Robaxin) 1,000 mg PO HS ZHANE Stop: 01/31/18 20:59 Last Admin: 08/05/17 20:01 Dose: 1,000 mg Multivitamins (Tab-A-Gladys) 1 each PO DAILY ZHANE Stop: 01/30/18 22:44 Last Admin: 08/06/17 08:45 Dose: 1 each Pantoprazole Sodium (Protonix) 40 mg PO BID ZHANE Stop: 01/31/18 20:59 Last Admin: 08/06/17 08:44 Dose: 40 mg Sertraline HCl (Zoloft) 100 mg PO DAILY ZHANE Stop: 02/01/18 08:59 Last Admin: 08/06/17 08:44 Dose: 100 mg Sucralfate (Carafate) 1 gm PO QID ZHANE Stop: 01/31/18 15:59 Last Admin: 08/06/17 05:49 Dose: 1 gm Discontinued Medications Aspirin (Aspirin) 325 mg PO EDNOW ONE Stop: 08/03/17 20:35 Last Admin: 08/03/17 20:37 Dose: 325 mg Thiamine HCl (Vitamin B-1) 100 mg PO DAILY ZHANE Stop: 01/30/18 22:44 Last Admin: 08/04/17 08:27 Dose: 100 mg Departure - Departure Disposition: [facility] Clinical Impression: Homonymous hemianopsia Qualifiers: Laterality: right Qualified Code(s): H53.461 - Homonymous bilateral field defects, right side Condition: Fair
[2017-08-03] MEDS ORDERED: ASPIRIN 325 MG TAB PO ONE (20:34)
[2017-08-03] MEDS ORDERED: IOPAMIDOL (ISOVUE 370) 100 ML BTL IV ONE (20:37)
[2017-08-03 20:43] LABS: PLATELET COUNT 74 10^3/uL (150-400)
[2017-08-03 20:50] LABS: INR 1.22 (0.83-1.16); PROTIME(PATIENT) 15.6 SEC (12.0-15.0)
[2017-08-03] MEDS ORDERED: ONDANSETRON 4 MG/2 ML VIAL IVP PRN (22:40)
[2017-08-03] MEDS ORDERED: NS 1,000 ML IV SCH (22:45)
[2017-08-03] MEDS: MULTIVITAMINS 1 EACH TAB PO SCH (23:49)
[2017-08-03] MEDS: FOLIC ACID 1 MG TAB PO SCH (23:49)
[2017-08-03] MEDS: THIAMINE HCL 100 MG TAB PO SCH (23:50)
[2017-08-04 05:58] LABS: PLATELET COUNT 61 10^3/uL (150-400)
--- NOTE | 2017-08-04 07:59 | PDGENHP ---
History and Physical - Chief Complaint Loss of vision - History of Present Illness Source-patient is able to provide history appears reliable. EMR reviewed and case discussed with accepting hospitalist. HPI - pleasant 62-year-old female with past medical history significant for paroxysmal atrial fibrillation and does not qualify for anticoagulation secondary to bleeding risk with coagulopathy thrombocytopenia and fall risk. Continued alcohol abuse and secondary complications, history of PE in DVT again not qualifying for and chronic anticoagulation as above chronic pain, depression who presents emergency department today with complaints of several days of on vision loss in the right visual field. Patient denies any headache. No recent trauma or injuries. Patient denies any other focal findings and denies any slurred speech focal weakness or increase in falls. Patient does report a history of chronic numbness tingling in the 4th and 5th finger on the right hand. She also presents to the emergency department with complaints of increasing lower extremity edema. Patient denies any calf pain or swelling. History Information - Allergies/Home Medication List Allergies/Adverse Reactions: Sulfa (Sulfonamide Antibiotics) Allergy (Mild, Verified 07/27/17 00:21) Rash Home Medications: Diltiazem Xr [Dilacor Xr] 240 mg PO DAILY 05/31/17 [Last Taken 07/13/17] Gabapentin [Neurontin 100 MG (*)] 100 mg PO HS 05/31/17 [Last Taken 07/13/17] Sucralfate [Carafate 1 GM (*)] 1 gm PO QID 05/31/17 [Last Taken 07/13/17] Multivitamins [Multivitamin (*)] 1 each PO DAILY 06/25/17 [Last Taken 07/13/17] Sertraline HCl [Zoloft 100mg (*)] 100 mg PO DAILY 06/25/17 [Last Taken 07/13/17] Ascorbic Acid [Vitamin C 500 mg (*)] 500 mg PO BID 07/13/17 [Last Taken 07/13/17 ] Levothyroxine Sodium 125 mcg PO DAILY 07/13/17 [Last Taken 07/13/17] HYDROmorphone HCL [Dilaudid 2 mg (*)] 2 mg PO Q4H PRN 08/03/17 [Last Taken Unknown] Methocarbamol [Robaxin 500 mg (*)] 1,000 mg PO HS 08/03/17 [Last Taken Unknown] oxyCODONE IR [Oxycodone Ir (*)] 5 mg PO Q4H PRN 08/03/17 [Last Taken Unknown] traZODone [traZODONE 50MG (*)] 50 mg PO HS PRN 08/03/17 [Last Taken Unknown] I have personally reviewed and updated: family history, medical history, social history, surgical history - Past Medical History Additional medical history: atrial fibrillation not a candidate for anticoagulation secondary to fall risk and history of coagulopathy and thrombocytopenia. etoh dependence with history of pancreatitis, withdrawal seizures. C diff 12/2015. anemia, coagulopathy. degenerative disk disease. scoliosis. chronic back pain. hypothyroidism. depression. History DVT and PE. History of cardiac arrest secondary to aspiration - Surgical History Additional surgical history: ORIF tib-fib 03/26/17. T/A - Family History Additional family history: father age 42 due to accident. mother age 50s due to esophageal ca - Social History Smoking Status: Never smoked Alcohol Use: Heavy (Patient reports that she continues to drink 2 to 3/5 per week of vodka.) Drug Use: None Additional social history: Patient lives alone. COR - FULL. desires Renay Carbone (sister) to act as proxy if needed. Review of Systems Review of Systems: ROS: 10pt was reviewed & negative except for what was stated in HPI & below Constitutional: Denies: chills, fever, recent illness EENMT: Reports: other (See HPI for regarding visual field changes.) Cardiac: Reports: no symptoms, edema (Lower extremity edema bilaterally and symmetric. No calf pain or swelling.) Respiratory: Reports: no symptoms Gastrointestinal: Reports: no symptoms Genitourinary: Reports: no symptoms Neurological: Reports: depressed, headache, other (See HPI). Denies: weakness Physical Exam Physical Exam: Selected Entries 08/03/17 08/03/17 18:04 23:14 Blood Pressure Automatic Method Heart Rate 85 78 Respiratory 14 12 Rate O2 Sat (%) 98 92 Temperature (C) 36.6 C 36.5 C Blood Pressure 116/77 105/68 Mean Arterial 90 80 Pressure (MAP) Activity During At Rest Vital Signs O2 Delivery Room Air Room Air Mode Blood Pressure Left Source Upper Arm Temperature Oral Oral Source Heart Rate Heart Rate/ Source Monitor Constitutional: no apparent distress, chronically ill appearing, cachectic, other (NAD. Chronically ill appearing female lying quietly in bed.), No uncomfortable Eyes: PERRL, anicteric sclera, EOMI, No scleral injection Ears, Nose, Mouth, Throat: moist mucous membranes, No no oral mucosal ulcers, No poor dentition Cardiovascular: regular rate and rhythym, systolic murmur (3/6), edema (2+ pitting edema bilaterally to the below the knee) Peripheral Pulses: 1+: dorsalis-pedis (R), dorsalis-pedis (L) Respiratory: no respiratory distress, no rales or rhonchi, clear to auscultation , reduced air movement, No expiratory wheeze Gastrointestinal: normoactive bowel sounds, soft, non-tender abdomen, no palpable masses, No guarding, No distension Genitourinary: no bladder tenderness (Bladder is full but nontender), No nicole in urethra Skin: warm, no rashes or abrasions, other (P[place]or) Musculoskeletal: generalized weakness (4-5 strength upper lower extremities.), No pain with ROM Neurologic: AAOx3, sensation intact bilaterally, CN II-XII Intact, other ( Nonfocal exam.), No facial droop Psychiatric: interacting appropriately, not encephalopathic, thought process linear Lab Data & Imaging Review 08/04/17 05:29 08/04/17 05:29 Laboratory Tests 08/03/17 08/03/17 08/03/17 20:35 20:35 20:35 WBC 2.25 L RBC 2.72 L Hgb 9.0 L Hct 27.1 L MCV 99.6 MCH 33.1 MCHC 33.2 RDW 19.2 H Plt Count 74 L MPV 10.9 Neut % (Auto) 40.4 Lymph % (Auto) 44.9 Boyle % (Auto) 10.7 Eos % (Auto) 2.7 Baso % (Auto) 0.9 Nucleat RBC Rel Count 0.0 Absolute Neuts (auto) 0.91 L Absolute Lymphs (auto) 1.01 Absolute Monos (auto) 0.24 L Absolute Eos (auto) 0.06 Absolute Basos (auto) 0.02 Absolute Nucleated RBC 0.00 Immature Gran % 0.4 Immature Gran # 0.01 PT 15.6 H INR 1.22 H APTT 29.0 Sodium 141 Potassium 4.1 Chloride 108 Carbon Dioxide 25 Anion Gap 8 BUN 6 L Creatinine 0.5 L Estimated GFR > 60 Glucose 69 L Calcium 8.1 L Magnesium 1.9 NT-Pro-B Natriuret Pep 386 H Ethyl Alcohol 213 H Imaging Review: CT Scan of the Head (Without Contrast) Clinical History: 62-year-old female with history of chronic alcoholism who had recent right foot surgery and complains of loss of peripheral vision in the right eye, as well as tingling in the upper extremity. Rule out acute intracranial abnormality. Technique: Axial unenhanced images were obtained from the vertex through the skull base, reformatted at 5.00 and 1.50 mm increments, and reviewed in bone, brain, and subdural windows. Images were reprocessed in parasagittal and paracoronal planes. Dose reduction techniques were utilized. The DFOV is 25.0 cm. Comparison Study: Unenhanced CT scan of the head, dated 04/24/2016. Findings: The ventricles and basilar cisterns are mildly enlarged (consistent with mild cerebral cortical atrophy), although remain symmetrical in configuration. There is no midline shift, or other evidence of mass effect. As on the preceding study, there is some mild diminished attenuation of the subcortical deep white matter in the posterior frontal regions. There is no abnormal intra or extra-axial blood collection, or acute infarction identified. The mastoids are patent. There is mild chronic mucosal thickening of the right maxillary sinus. There is trace leftward nasal septal deviation. There is no air-fluid level, or acute osseous erosion. Minimal mucosal thickening of the posterior left sphenoid sinus is seen. The craniocervical junction, sella turcica, pineal gland, and the orbits are within normal limits. There is some stable calcification which appears to reside relatively symmetrically along the course of the optic nerves, unchanged from 2016. There is no acute calvarial fracture, or osteolytic or blastic lesion. Impression: There is no acute intracranial abnormality identified on this unenhanced CT evaluation, or substantial change from 04/24/2016. If there is further clinical concern regarding the patient's symptoms, MR imaging is suggested, if not otherwise contraindicated. Findings were discussed with STEVE RODRIGUEZ MD at 20:06, on 08/03/2017. CT Angiogram of the Neck and the Brain Clinical Indications: 62-year-old female with peripheral right-sided vision loss (homonymous hemianopsia). Rule out hematoma dynamically significant stenosis or intra- arterial thrombus. Technique: A CT angiogram of the head and neck was performed during the uneventful intravenous administration of 70 mL Isovue-370 contrast. Multiplanar reconstructions including 3D reconstructions were performed and evaluated on the workstation using [employer] software in order to better evaluate the cervical vasculature and the [place]. MIPP images are provided. Images are reformatted at 0.75 mm increments, and reviewed at a variety of window and level settings. Dose reduction techniques were utilized. The DFOV is 20.0 cm. Comparison Study: Unenhanced CT scan of the head at 7:49 PM this evening. Findings: CT ANGIOGRAPHY OF THE NECK: There is a "bovine" anatomic arrangement of the great vessels off the aortic arch, such that there is a common origin of the right innominate and left common carotid artery, and a normal separate origin of the left innominate artery. The visualized subclavian arteries are patent. The vertebral arteries are patent bilaterally and the left vertebral artery is the more dominant of the 2 vessels. There is no hemodynamically significant eccentric stenosis, dissection, ulcerative plaque, or intra-arterial thrombus. Impression: 1. There is no hemodynamically significant ICA stenosis. 2. Patent vertebral arteries. CT ANGIOGRAPHY OF THE BRAIN: The major vessels of the [place] are well visualized, and there is no aneurysm, vascular malformation, flow-limiting stenosis, or acute occlusion identified. The distal cervical, petrous, cavernous, and supraclinoid portions of the internal carotid arteries are patent. The A1 and A2 segments are patent as are the M1, M2, and M3 trifurcation vessels. With regards to the posterior circulation, the distal vertebral arteries are patent. The posterior inferior cerebellar arteries, vertebrobasilar confluence, basilar artery, superior cerebellar arteries, and the posterior cerebral arteries are patent. The anterior inferior cerebellar arteries are atretic. The posterior communicating arteries are significantly hypoplastic. The dural venous sinuses are patent although the left transverse dural venous sinuses congenitally hypoplastic relative to the right side. The right internal jugular vein is the more dominant draining vessel. Impression: Negative CT angiogram of the brain. CT Source Data: The lung apices are notable for a small thin-walled pneumatocele the anterior left upper lobe. There is no nodule. The visualized superior mediastinal structures are unremarkable. The visualized prevertebral soft tissues are normal. There is reversal of the normal cervical lordosis, with advanced degenerative disk disease at C4-C5, C5-C6, and C6-C7 with ventral and dorsal traction osteophytes. Measurement of carotid stenosis is based on the residual internal carotid diameter with [place] Symptomatic Carotid Endarterectomy Trial (NASCET) based stenosis levels. Findings were discussed with Steffany Corral MD at 21:44, on 08/03/2017. EKG additional interpertation: NSR in the 60s. Pac. Low voltage diffusely. QTC is 495. No acute ST changes Assessment & Plan Assessment: 62-year-old female with history of alcohol dependence, cirrhosis, coagulopathy and history of DVT PE who presents with complaints of several days of visual field changes. Right homonymous hemianopsia - CT head and CTA head and neck were within normal limits. MRI of the brain is ordered for this morning. Patient without any additional focal deficits. Patient presented well outside time frame for tPA consideration. Neurology is consulted. Lower extremity edema-patient without any evidence of calf swelling or pain. She does have a history DVT in pea even a candidate for anticoagulation. She is symmetric lower extremity edema likely related to her cirrhosis. Patient continues to drink alcohol despite recommendations for immediate cessation. Alcohol dependence - [facility] protocol in place. Vitamin supplementation as per orders. Paroxysmal atrial fibrillation - patient currently normal sinus rhythm. She is not a candidate for anticoagulation secondary to coagulopathy, thrombocytopenia and history of falls and continued alcohol dependence. Alcoholic cirrhosis - consider diuretic therapy. Coagulopathy - mildly elevated INR. Pancytopenia - leukopenia, anemia, thrombocytopenia - secondary to cirrhosis. Hypoglycemia-patient is tolerating a regular diet continue to monitor. Currently asymptomatic. FEN - diet as tolerated. Electrolyte monitoring and replacement p.r.n.. PPX-SCDs if tolerated. No anticoagulation secondary to above. Cor status-full Disposition-patient admitted observation status on the neurology floor pending MRI and Neurology recommendations.
[2017-08-04] MEDS: THIAMINE HCL 100 MG TAB PO SCH (08:27)
[2017-08-04] MEDS: FOLIC ACID 1 MG TAB PO SCH (08:27)
[2017-08-04] MEDS: ASPIRIN 81 MG CHEWABLE TAB PO SCH (08:27)
[2017-08-04] MEDS: MULTIVITAMINS 1 EACH TAB PO SCH (08:27)
[2017-08-04] MEDS ORDERED: ENOXAPARIN 40 MG/0.4 ML SYR SC SCH (09:00)
--- NOTE | 2017-08-04 10:08 | NEUROPROG ---
Assessment: [id number] - Neurology Consult: - CC: Dr. Traci Avila consulted neurology for hemianopsia. Results placed in EMR for her review. - HPI: Pt admitted to [facility] on 08/03/17 after she reported several days of R sided visual field loss. Head CT and CTA head/neck unremarkable. She has alcoholism and afib in addition to prior PE and DVT but cannot tolerate anticoagulation due to anemia/coagulopathy. She did also note chronic tingling in right hand digits but otherwise no other focal neurologic problems. I initially saw the patient on 08/04/17. She continued to complain of right sided visual field loss and her NIH SS was 2. - PMHx: afib (due to anemia/bleeding risk not able to use anticoagulation), alcoholism w/Cirrohosis, pancreatitis, withdrawal seizures, C diff, anemia, coagulopathy, degen disk disease, scoliosis, chronic pain, hypothyroidism, depression, History of DVT and PE, Hx of cardiac arrest 2nd to aspiration PSHx: ORIF tib-fib 03/26/17, T/A - Home Meds: diltiazem, gabapentin, carafate, zoloft, levothyroxine, dilaudid, robaxin, oxycodone, trazodone - SHx: no tobacco, alcoholism FHx: parents - ROS: Pt denied acute fever, total vision loss, active severe chest pain, respiratory failure, total body severe rash, total bowel/bladder incontinence, psychosis, active seizures, or active bleeding - O: VS reviewed General: Alert Eyes: Fundoscopic exam not able to visualize optic disks CV: Heart RRR, no murmur, no carotid bruit Lungs: Clear to auscultation bilaterally, no rhonchi or rales Neuro: - Mental: . Oriented x person/place but not date . concentration appears normal . speech fluency/comprehension normal . memory appears normal . fund of knowledge appear intact - Cranial Nerves: . II: PERRL, Right sided visual field loss in both eyes . III/IV/: EOMI, no nystagmus, normal smooth pursuits, no Ptosis . V: facial sensation intact to LT . VII: face symmetric to eye closure and smile . VIII: hearing intact to conversation . IX/X: uvula raises symmetrically . XI: SCM 5/5 B/L strength . XII: tongue protrudes midline w/nl strength - Motor: . Tone: normal tone in all 4 extremity . Strength: no pronator drift, strength 5/5 throughout (B/L delt, bic, tri, hand audit officer, hf/he, df/pf) - Reflexes: B/L bic/BR/patella 2/4 - Sensory: all 4 extremity intact to light touch - Coord: [id number] wnl, MANNY wnl, [id number] wnl - Gait: deferred - NIH SS 2 (right sided hemianopsia) - Labs: 08/03/17- CBC WBC 2.25L Hct 27.1L Plt 74L, INR 1.22H PT 15.6H, Chem BUN 6L Cr 0.5L GLuc 69L Ca 8.1L, ethyl alcohol 213H 08/04/17- LDL 24L - Rads: 08/03/17- Head CT: There is no acute intracranial abnormality identified on this unenhanced CT evaluation, or substantial change from 04/24/2016. (I personally visualized the images on 08/04/17) 08/03/17- Head/neck CTA: unremarkable - Assessment: 1. Right sided vision loss: Concern for CVA given afib, alcoholism, and coagulopathy. Will obtain stroke evaluation. - 2. Chronic Alcoholism with Cirrhosis causing anemia/coagulopathy 3. Afib 4. Tingling in right digits: Likely ulnar neuropathy, can be addressed in outpatient setting - Plan: - Alcohol cessation is critical and should be the patients top priority from a health standpoint - LDL goal < 70 (24), no statin needed - H1AC goal < 7.0 (H1AC pending) - BLood pressure goal < 140/90 - TTE no exclude cardiac thrombus - Brain MRI w/o con to eval for stroke - PT/OT/Speech consult - If OK with hospitalist and safe (given coagulopathy/anemia) recommend Aspirin 81 mg qd for stroke prevention - Pt not able to be anticoagulated due to coagulopathy - Agree with plan for CIWA protocol - We can perform an EMG/NCS in the outpatient setting to evaluate her chronic left digit numbness Objective: Vital Signs Temp Pulse Resp BP Pulse Ox 36.8 C 93 20 131/72 H 94 08/04/17 07:35 08/04/17 07:35 08/04/17 07:35 08/04/17 07:35 08/04/17 07:35 Laboratory Results 08/04/17 05:29 08/04/17 05:29 08/03/17 08/04/17 08/05/17 05:59 05:59 05:59 Intake Total 900 450 Balance 900 450 PT 15.6 SEC (12.0-15.0) H 08/03/17 20:35 INR 1.22 (0.83-1.16) H 08/03/17 20:35 Allergies/Adverse Reactions: Sulfa (Sulfonamide Antibiotics) Allergy (Mild, Verified 07/27/17 00:21) Rash
--- NOTE | 2017-08-04 14:21 | HOSPPROG ---
Hospitalist Progress Note Assessment/Plan: 62-year-old alcoholic who is admitted with hemianopsia. Found to have a stroke on her MRI. Reviewed with Dr. Ballesteros # acute stroke left temporal and occipital lobe. * Continue workup * Discussed with Neurology * Patient cannot be anticoagulated due to multiple issues including fall risk and bone marrow suppression * Start aspirin daily * Work on other risk factors # alcoholism: Patient with very poor short-term memory recall, I do not think she is competent to make her medical decisions and fearful that she will continue driving despite poor eyesight given her poor insight. * At high risk for withdrawal * Multiple admissions for alcoholism without clear evidence she has tried to quit * Like to get ethics involved for competency * She should not drive. # bone marrow suppression due to alcoholism. Anemia and low platelets. Given her acute stroke will go ahead and transfuse 1 unit of packed red blood cells if for her anemia. Patient agreeable to transfusion # history of DVT and PE, patient not candidate for anticoagulation # history of atrial fibrillation, patient not candidate for anticoagulation Subjective: Patient new to me and chart reviewed. Denies current alcohol withdrawal symptoms. Or vision Objective: Vital Signs Temp Pulse Resp BP Pulse Ox 36.8 C 96 15 125/74 H 92 08/04/17 12:35 08/04/17 12:35 08/04/17 12:35 08/04/17 12:35 08/04/17 12:35 Laboratory Results 08/04/17 05:29 08/04/17 05:29 08/03/17 08/04/17 08/05/17 05:59 05:59 05:59 Intake Total 900 450 Output Total 100 Balance 900 350 PT 15.6 SEC (12.0-15.0) H 08/03/17 20:35 INR 1.22 (0.83-1.16) H 08/03/17 20:35 - Physical Exam Constitutional: chronically ill appearing Eyes: PERRL Ears, Nose, Mouth, Throat: moist mucous membranes Cardiovascular: regular rate and rhythym Respiratory: no respiratory distress Gastrointestinal: normoactive bowel sounds Genitourinary: no bladder fullness Skin: warm Musculoskeletal: generalized weakness Neurologic: No facial droop Psychiatric: anxious ICD10 Worksheet Patient Problems: Problems Problem Status Onset Homonymous hemianopsia Acute Abdominal pain Acute Alcohol abuse Acute Alcohol intoxication Acute Alcohol withdrawal Acute Alcohol withdrawal Acute Ankle fracture Acute Atrial fibrillation Acute Atrial fibrillation with RVR Acute C. difficile diarrhea Acute 09/23/16 Cardiac arrest Acute GI bleed Acute Hypomagnesemia Acute Nausea & vomiting Acute Nausea and vomiting in adult Acute UTI (urinary tract infection) Acute Vomiting Acute
--- NOTE | 2017-08-04 14:42 | PDMN ---
Medical Necessity Medical necessity: C/M review: est. > 2 MN LOS for eval and TX of acute stroke left temporal and occipital lobe, hemianopsia, anemia, low platelets, requiring Neurology consult, possible Ethics consult for competency, ongoing IV fluids, IV Thiamine, start oral aspirin daily, cardiac monitoring, pulse oximetry, CIWA protocol acute inpt PT/OT/ST, comorbid patient cannot be anticoagulated due to multiple issues including fall risk and bone marrow suppression, alcoholism at high risk for withdrawal, patient with very poor short term memory recall, bone marrow suppression due to alcoholism, history of DVT and PE , atrial fibrillation, patient not a candidate for anticoagulation per 08/04/2017 Hospitalist progress note.
[2017-08-04] MEDS ORDERED: ONDANSETRON DISINTEGRATING 4 MG TAB PO PRN (15:10)
[2017-08-04] MEDS ORDERED: traZODone 50 MG TAB PO PRN (15:10)
--- NOTE | 2017-08-04 15:22 | ECHO ---
[email or web address] [address] [address] Main: [phone] Fax: Transthoracic Echocardiogram Name: SAIRA RAHMAN MR#: [id number] Study Date: 08/04/2017 Study Time: 01:02 PM Date of : 1955 Age: 62 year(s) Height: 167.6 cm (66 in.) Weight: 56.25 kg (124 lb.) BSA: 1.63 m2 Gender: Female Examination: Echo Indication: ischemic stoke Image Quality: Technically Difficult Contrast: Requested by: Traci Avila BP: 125 mmHg/74 mmHg Heart Rate: Rhythm: Indication: ischemic stoke Procedure Staff Criminal Justice Instructor: Ana Owen [facility] Reading Physician: Joe Richards MD Requesting Provider: Conclusions: Normal size left ventricle. EF is 60 %. No regional wall motion abnormality. Normal RV function. Trivial mitral valve regurgitation. There is no tricuspid valve regurgitation. Pulmonary artery pressure is not obtained due to inadequate TR jet. There is no previous echocardiogram for comparison. Measurements: Chambers Valvular Assessment AV/MV Valvular Assessment TV/PV Normal Normal Normal Name Value Range Name Value Range Name Value Range Ao Aiyana (MM): 2.9 cm (2.2 cm-3.7 AV Vmax: 1.38 m/s (1 m/s-1.7 PV Vmax: 1.21 m/s (0.6 m/s-0.9 cm) m/s) m/s) IVSd (2D): 0.9 cm (0.6 cm-1.1 AV maxP mmHg ( - ) PV PGmax: 6 mmHg ( - ) cm) LVOT Vmax: 1.25 m/s (0.7 m/s-1.1 LVDd (2D): 4.0 cm (3.9 cm-5.3 m/s) cm) MV E Vmax: 0.82 m/s ( - ) LVDs (2D): 2.7 cm (2.1 cm-4 MV A Vmax: 1.18 m/s ( - ) cm) MV E/A: 0.69 ( - ) LVPWd (2D): 0.9 cm ( - ) LVEF (2D): 60 (>=54 %) Continued Measurements: Chambers Valvular Assessment AV/MV Name Value Name Value LADs Lon.6 cm MV DecTime: 124 m/s Patient: SAIRA RAHMAN Study Date: 08/04/2017 Page 1 of 2 01:02 PM LA Area: 14.7 cm2 RA Area: 12.5 cm2 Additional Vessels Name Value Ao Ascendin.4 cm Findings: Left Ventricle: Normal size left ventricle. No LV hypertrophy. Normal global systolic LV function. EF is 60 %. No regional wall motion abnormality. Right Ventricle: Normal size right ventricle. Normal RV function. Left Atrium: The left atrium is normal in size. Right Atrium: The right atrium is normal in size. Mitral Valve: The mitral valve is normal in appearance. Trivial mitral valve regurgitation. No mitral stenosis is present. Aortic Valve: The aortic valve is tri-leaflet and functions normally. There is no aortic valve regurgitation. No aortic valve stenosis is present. Tricuspid Valve: The tricuspid valve is normal in appearance and function. There is no tricuspid valve regurgitation. Pulmonary artery pressure is not obtained due to inadequate TR jet. Pulmonic Valve: Pulmonary valve not well visualized. There is no pulmonic regurgitation seen. Aorta: Normal size aortic root measuring 2.9 cm. Normal size ascending aorta measuring 2.4 cm. Pericardium: Trivial pericardial effusion. There is pericardial fat. (No Signature Object) Patient: SAIRA RAHMAN Study Date: 08/04/2017 Page 2 of 2 01:02 PM [id number]
[2017-08-04] MEDS: SUCRALFATE 1 GM TAB PO SCH ×2 (15:38→20:58)
--- NOTE | 2017-08-04 17:02 | ASMTCMCOM ---
CM Note CM Note Notes: Pt admitted w/CVA. she has had multiple ER visits and admissions over last few months. Pt also has hx and current alcohol abuse. Pt last dc'd July 13, was set up w/[facility] at that time. CM left voicemail today with [facility] to discuss. PT recommending Inpt rehab, OT and SP recommending SNF. I discussed this w/pt and she said that she is not interested in going to rehab. She plans to dc home where she lives alone. She does not have help coming into the home but states she has some friends she could call on. When I asked if she currently had HHC she said she did not and did not seem to remember that this was what we set her up with last visit to hospital. Discussd case w/Dr. Jauregui who would like to bring Ethics in to help determine if pt is decisional. CM left voicemail for Ethics team. Pt has signed release and given nursing staff permission to discuss w/ friend, Renay Carbone ([phone]). Current dc plan: TBD, pt does not seem safe at this time to dc home alone. Date Signed: 08/04/2017 05:01 PM Electronically Signed By:Maris Martinez RN
[2017-08-04] MEDS: ACETAMINOPHEN 325 MG TAB PO PRN (17:34)
[2017-08-04] MEDS: METHOCARBAMOL 500 MG TAB PO SCH (20:58)
[2017-08-04] MEDS: GABAPENTIN 100 MG CAP PO SCH (20:58)
[2017-08-04] MEDS: PANTOPRAZOLE SODIUM 40 MG TAB PO SCH (20:58)
[2017-08-04] MEDS: ASCORBIC ACID 500 MG TAB PO SCH (20:58)
[2017-08-04] MEDS: THIAMINE HCL 500 MG in NS 500 ML IV SCH (21:11)
[2017-08-05] MEDS: THIAMINE HCL 500 MG in NS 500 ML IV SCH ×3 (05:09→22:16)
[2017-08-05] MEDS: SUCRALFATE 1 GM TAB PO SCH ×4 (05:10→20:02)
[2017-08-05 05:27] LABS: PLATELET COUNT 74 10^3/uL (150-400)
--- NOTE | 2017-08-05 09:06 | HOSPPROG ---
Hospitalist Progress Note Assessment/Plan: 62-year-old alcoholic who is admitted with hemianopsia. Found to have a stroke on her MRI. Reviewed with Dr. Ballesteros # acute stroke left temporal and occipital lobe. * Workup unremarkable, will continue patient on aspirin daily * Patient cannot be anticoagulated due to multiple issues including fall risk and bone marrow suppression * Start aspirin daily * Work on other risk factors # alcoholism: Patient with very poor short-term memory recall, I do not think she is competent to make her medical decisions and fearful that she will continue driving despite poor eyesight given her poor insight. Today she is slightly improved however she still cannot remember if she had a stroke * At high risk for withdrawal * Multiple admissions for alcoholism without clear evidence she has tried to quit * Continue to monitor her today with speech cognitive therapy as well as physical and occupational therapy * She should not drive. # bone marrow suppression due to alcoholism. Anemia and low platelets. Given her acute stroke will go ahead and transfuse 1 unit of packed red blood cells if for her anemia. Patient agreeable to transfusion # history of DVT and PE, patient not candidate for anticoagulation # history of atrial fibrillation, patient not candidate for anticoagulation Subjective: Patient feeling much better today. She feels like her vision is getting better however she was again some prior eyes when I told her she had a stroke. She thought she was here because of her alcohol use and falling. She has had multiple admissions for that before. Objective: Vital Signs Temp Pulse Resp BP Pulse Ox 36.9 C 74 19 111/76 94 08/05/17 08:00 08/05/17 08:00 08/05/17 08:00 08/05/17 08:00 08/05/17 08:00 Laboratory Results 08/05/17 05:09 08/05/17 05:09 08/04/17 08/05/17 08/06/17 05:59 05:59 05:59 Intake Total 900 2300 Output Total 900 Balance 900 1400 PT 15.6 SEC (12.0-15.0) H 08/03/17 20:35 INR 1.22 (0.83-1.16) H 08/03/17 20:35 - Physical Exam Constitutional: not in pain, chronically ill appearing Eyes: PERRL, anicteric sclera Ears, Nose, Mouth, Throat: moist mucous membranes, hearing normal Cardiovascular: regular rate and rhythym Respiratory: no respiratory distress, clear to auscultation Gastrointestinal: normoactive bowel sounds Neurologic: No AAOx3 (Alert and oriented times to thought the year was 2011) Psychiatric: interacting appropriately, poor memory ICD10 Worksheet Patient Problems: Problems Problem Status Onset Abdominal pain Acute Ankle fracture Acute GI bleed Acute Atrial fibrillation Acute Alcohol intoxication Acute Cardiac arrest Acute UTI (urinary tract infection) Acute Hypomagnesemia Acute Homonymous hemianopsia Acute Alcohol withdrawal Acute Nausea and vomiting in adult Acute Alcohol abuse Acute Nausea & vomiting Acute Vomiting Acute Atrial fibrillation with RVR Acute C. difficile diarrhea Acute 09/23/16 Alcohol withdrawal Acute
[2017-08-05] MEDS: DILTIAZEM XR 240 MG CAP PO SCH (09:10)
[2017-08-05] MEDS: PANTOPRAZOLE SODIUM 40 MG TAB PO SCH ×2 (09:11→20:01)
[2017-08-05] MEDS: ASCORBIC ACID 500 MG TAB PO SCH ×2 (09:11→20:00)
[2017-08-05] MEDS: LEVOTHYROXINE 125 MCG TAB PO SCH (09:11)
[2017-08-05] MEDS: FOLIC ACID 1 MG TAB PO SCH (09:11)
[2017-08-05] MEDS: ASPIRIN 81 MG CHEWABLE TAB PO SCH (09:11)
[2017-08-05] MEDS: MULTIVITAMINS 1 EACH TAB PO SCH (09:11)
[2017-08-05] MEDS: SERTRALINE HCL 100 MG TAB PO SCH (09:11)
[2017-08-05] MEDS: ACETAMINOPHEN 325 MG TAB PO PRN ×2 (09:28→20:02)
--- NOTE | 2017-08-05 13:34 | NEUROPROG ---
Assessment: [id number] - Neurology Consult: - CC: F/U for stroke - Narrative Summary: Pt admitted to [facility] on 08/03/17 after she reported several days of R sided visual field loss. Head CT and CTA head/neck unremarkable. She has alcoholism and afib in addition to prior PE and DVT but cannot tolerate anticoagulation due to anemia/coagulopathy. She did also note chronic tingling in right hand digits but otherwise no other focal neurologic problems. I initially saw the patient on 08/04/17. She continued to complain of right sided visual field loss and her NIH SS was 2. - HPI: F/U 08/05/17. Brain MRI showed new left mesial temporal/occipital stroke to explain her vision loss. TTE showed no cardiac thrombus. It is likely her stroke is from her known afib and as her coagulopathy from alcoholism prevents anticoagulation the only option remains antiplatelet therapy. She otherwise denied new complaints. She reported she was feeling better. - PMHx: afib (due to anemia/bleeding risk not able to use anticoagulation), alcoholism w/Cirrhosis, pancreatitis, withdrawal seizures, C diff, anemia, coagulopathy, degen disk disease, scoliosis, chronic pain, hypothyroidism, depression, History of DVT and PE, Hx of cardiac arrest 2nd to aspiration PSHx: ORIF tib-fib 03/26/17, T/A - Home Meds: diltiazem, gabapentin, carafate, zoloft, levothyroxine, dilaudid, robaxin, oxycodone, trazodone - SHx: no tobacco, alcoholism FHx: parents - ROS: Pt denied acute fever, total vision loss, active severe chest pain, respiratory failure, total body severe rash, total bowel/bladder incontinence, psychosis, active seizures, or active bleeding - Labs: 08/03/17- CBC WBC 2.25L Hct 27.1L Plt 74L, INR 1.22H PT 15.6H, Chem BUN 6L Cr 0.5L GLuc 69L Ca 8.1L, ethyl alcohol 213H 08/04/17- LDL 24L - Rads: 08/03/17- Head CT: There is no acute intracranial abnormality identified on this unenhanced CT evaluation, or substantial change from 04/24/2016. (I personally visualized the images on 08/04/17) 08/03/17- Head/neck CTA: unremarkable 08/04/17- TTE: EF 60%, no cardiac thrombus reported 08/04/17- Brain MRI w/o con: L mesial temporal and occipital lobe CVA w/hemorrhage , mod CMVD - Assessment: 1. Left mesial temporal occipital stroke likely from afib causing Right sided vision loss on 08/03/17: CTA head/neck unremarkable, TTE showed no cardiac thrombus, known afib but patient has coagulopathy preventing anticoagulation, concurrent alcoholism with cirrhosis also increases stroke risk. Treatment would be aimed at alcohol cessation, glucose/LDL control/blood pressure control , and dual antiplatelet therapy if OK per hematology given bleeding risk. - 2. Chronic Alcoholism with Cirrhosis causing anemia/coagulopathy 3. Afib 4. Tingling in right digits: Likely ulnar neuropathy, can be addressed in outpatient setting - Plan: - Alcohol cessation is critical and should be the patients top priority from a health standpoint - LDL goal < 70 (24), no statin needed - H1AC goal < 7.0 (H1AC pending) - BLood pressure goal < 140/90 - PT/OT/Speech consult to determine any inpatient or outpatient rehab needs - Hematology consult to determine if we can use aspirin and plavix for stroke prevention given her coagulopathy - If OK with hematology (given coagulopathy/anemia) recommend adding plavix 75 mg qd to Aspirin 81 mg qd for stroke prevention - Pt not able to be anticoagulated due to coagulopathy - Agree with plan for CIWA protocol - We can perform an EMG/NCS in the outpatient setting to evaluate her chronic left digit numbness - F/U in neurology clinic 1-4 weeks after discharge - Neurology will continue to follow Objective: Vital Signs Temp Pulse Resp BP Pulse Ox 36.9 C 82 17 114/72 93 08/05/17 12:00 08/05/17 12:00 08/05/17 12:00 08/05/17 12:00 08/05/17 12:00 Laboratory Results 08/05/17 05:09 08/05/17 05:09 08/04/17 08/05/17 08/06/17 05:59 05:59 05:59 Intake Total 900 2300 350 Output Total 900 Balance 900 1400 350 PT 15.6 SEC (12.0-15.0) H 08/03/17 20:35 INR 1.22 (0.83-1.16) H 08/03/17 20:35 Allergies/Adverse Reactions: Sulfa (Sulfonamide Antibiotics) Allergy (Mild, Verified 07/27/17 00:21) Rash
--- NOTE | 2017-08-05 16:46 | ASMTCMCOM ---
CM Note CM Note Notes: CM met with friend of patient, Renay Carbone who expressed deep concern for patients well being specifically around memory and decision making around returning home. She shared she was talking to the patient and the patient didn't understand it was 2017, she believed it was 2007. Renay shares Nicole prefers to go by Clarisse, they have been best friends for many years, and Clarisse has been dealing with alcoholism the whole time. She reports the patient only has a sister that is living & the thinks is Clarisse's MDPOA. Sisters name is Milton, but she does not have last name and has no contact info. The patient lives in a home she owns, Renay reports is unkempt and she believes unsafe to be in (mounds of trash, clogged toilet). When home, Clarisse still drives. CM consulted with Barbara Rothman about legal case, chart shows friend Renay Carbone is listed as requested to assit with surrogate health care decision maker. CM did not contact Economic Historian services today. CM then met with patient and friend Renay. CM explained PT, OT and ST have recommended SNF. Clarisse states approval of referrals to be placed with facilities near [place] but is not ready to commit to anything at this time. CM shared info about [facility] and Medicaid CM, gave phone number [phone] and info sheet print out. Renay will call tomorrow. We discussed LTC Medicaid and focused the discussion on HCBS, the patient states she may be open to this - CM shared it was mentioned the member attempted to apply in the past but was denied due to assets, the patient did not mention recalling this process. This may be a possible referral the patient would be interested in pursuing. No dishcarge date indicated at this time, CM available for ongoing CM needs. D/C Plan: SNF. & possible LTC Medicaid referral. PASSR still needs to be completed for referrals. Date Signed: 08/05/2017 04:46 PM Electronically Signed By:Sandra Keane
[2017-08-05] MEDS: GABAPENTIN 100 MG CAP PO SCH (20:01)
[2017-08-05] MEDS: METHOCARBAMOL 500 MG TAB PO SCH (20:01)
[2017-08-06] MEDS: ACETAMINOPHEN 325 MG TAB PO PRN ×2 (03:35→08:57)
[2017-08-06] MEDS: SUCRALFATE 1 GM TAB PO SCH ×4 (05:49→21:09)
[2017-08-06] MEDS: THIAMINE HCL 500 MG in NS 500 ML IV SCH (05:49)
--- NOTE | 2017-08-06 08:28 | NEUROPROG ---
Assessment: As noted, the patient is not a good candidate for full anticoagulation. The question was raised of potentially adding Plavix on top of aspirin. We talked about this, and we are going to simply use aspirin for now because of the potential increased risk of bleeding with her low platelets. If she can get better control of her alcoholism and platelets can improve then she might be a candidate eventually for full anticoagulation. She understands that she does have significant risk of bleeding as well as stroke and said she would be willing to resume alcoholics anonymous again. Total unit time of 25 min with greater than 50% of the time counseling coordination of care. If therapy feels she is safe for discharge home, then there are no other reasons I would hold her in the hospital from a neurologic standpoint. She was instructed to follow up with us in Neurology in the next month. Subjective: Patient case was reviewed in detail from the medical records. She says that she is currently stable with the ongoing right visual field loss which has previously been documented. She has a documented stroke in the left medial temporal occipital lobe presumably related to embolism. She remains on aspirin 81 mg daily. Objective: Vital Signs Temp Pulse Resp BP Pulse Ox 36.9 C 66 16 124/77 H 95 08/06/17 08:00 08/06/17 08:00 08/06/17 08:00 08/06/17 08:00 08/06/17 08:00 Laboratory Results 08/06/17 04:37 08/06/17 04:37 08/05/17 08/06/17 08/07/17 05:59 05:59 05:59 Intake Total 2300 1250 Output Total 900 Balance 1400 1250 PT 15.6 SEC (12.0-15.0) H 08/03/17 20:35 INR 1.22 (0.83-1.16) H 08/03/17 20:35 There is a right visual field loss but no other neurologic deficits. Allergies/Adverse Reactions: Sulfa (Sulfonamide Antibiotics) Allergy (Mild, Verified 07/27/17 00:21) Rash
[2017-08-06] MEDS: SERTRALINE HCL 100 MG TAB PO SCH (08:44)
[2017-08-06] MEDS: PANTOPRAZOLE SODIUM 40 MG TAB PO SCH ×2 (08:44→21:37)
[2017-08-06] MEDS: DILTIAZEM XR 240 MG CAP PO SCH (08:44)
[2017-08-06] MEDS: FOLIC ACID 1 MG TAB PO SCH (08:44)
[2017-08-06] MEDS: ASPIRIN 81 MG CHEWABLE TAB PO SCH (08:45)
[2017-08-06] MEDS: MULTIVITAMINS 1 EACH TAB PO SCH (08:45)
[2017-08-06] MEDS: ASCORBIC ACID 500 MG TAB PO SCH ×2 (08:45→21:08)
[2017-08-06] MEDS: LORazepam 2 MG/ML INJ IVP PRN ×2 (08:56→21:31)
[2017-08-06] MEDS: LEVOTHYROXINE 125 MCG TAB PO SCH (12:07)
--- NOTE | 2017-08-06 15:05 | HOSPPROG ---
Hospitalist Progress Note Assessment/Plan: 62-year-old alcoholic who is admitted with hemianopsia. Found to have a stroke on her MRI. Reviewed with Dr. Ballesteros. Patient having slight tremors this morning , I suspect she is starting to have some withdrawal symptoms. # acute stroke left temporal and occipital lobe. * Workup unremarkable, will continue patient on aspirin daily * Patient cannot be anticoagulated due to multiple issues including fall risk and bone marrow suppression * Start aspirin daily * Work on other risk factors # alcoholism: Patient with very poor short-term memory recall, I do not think she is competent to make her medical decisions and fearful that she will continue driving despite poor eyesight given her poor insight. Today she is slightly improved, I suspect she is having mild withdrawal symptoms today requiring IV Ativan currently. * Continue CIWA, will decrease Ativan dosed given her size and liver issues * Multiple admissions for alcoholism without clear evidence she has tried to quit, she is interested in quitting today per her report and has some friends that will help her * Continue to monitor her today with speech cognitive therapy as well as physical and occupational therapy * Will need additional midnight stay due to ongoing alcohol withdrawal noted today. * She should not drive. I discussed this with this patient and she is agreeable to not drive. # bone marrow suppression due to alcoholism. Anemia and low platelets. Status post 1 unit packed red blood cells this admission given her acute stroke symptoms # history of DVT and PE, patient not candidate for anticoagulation # history of atrial fibrillation, patient not candidate for anticoagulation Subjective: Still somewhat confused although does remember having a stroke. Oriented x2, cannot recall the year Objective: Vital Signs Temp Pulse Resp BP Pulse Ox 37.1 C 78 19 110/72 98 08/06/17 12:00 08/06/17 12:00 08/06/17 12:00 08/06/17 12:00 08/06/17 12:00 Laboratory Results 08/06/17 04:37 08/06/17 04:37 08/05/17 08/06/17 08/07/17 05:59 05:59 05:59 Intake Total 2300 1250 Output Total 900 Balance 1400 1250 PT 15.6 SEC (12.0-15.0) H 08/03/17 20:35 INR 1.22 (0.83-1.16) H 08/03/17 20:35 - Physical Exam Constitutional: not in pain, chronically ill appearing Eyes: PERRL, EOMI, other (Decreased visual field on right) Ears, Nose, Mouth, Throat: moist mucous membranes Cardiovascular: regular rate and rhythym Respiratory: no respiratory distress Gastrointestinal: normoactive bowel sounds Genitourinary: no bladder fullness Skin: warm Musculoskeletal: abnormal gait, generalized weakness Neurologic: No AAOx3, No facial droop Psychiatric: interacting appropriately, poor judgement, poor memory ICD10 Worksheet Patient Problems: Problems Problem Status Onset Abdominal pain Acute Ankle fracture Acute GI bleed Acute Atrial fibrillation Acute Alcohol intoxication Acute Cardiac arrest Acute UTI (urinary tract infection) Acute Hypomagnesemia Acute Homonymous hemianopsia Acute Alcohol withdrawal Acute Nausea and vomiting in adult Acute Alcohol abuse Acute Nausea & vomiting Acute Vomiting Acute Atrial fibrillation with RVR Acute C. difficile diarrhea Acute 09/23/16 Alcohol withdrawal Acute
[2017-08-06] MEDS ORDERED: PNEUMOCOCCAL 0.5ML VACCINE VIAL IM ONE (15:21)
[2017-08-06] MEDS: THIAMINE HCL 100 MG TAB PO SCH ×2 (16:32→21:07)
--- NOTE | 2017-08-06 17:15 | ASMTCMCOM ---
CM Note CM Note Notes: Cindy with [facility] reports [facility] was never able to open pt for skilled care the two times they were referred due to pt non-compliance. Pt would not follow up with PCP or return calls. Cindy has assessed pt does not want to share her private life and allow people into her home. [facility] would not accept pt referral again, review of chart also indicates [facility] declines providing pt services due to her behavior. Pt reports her current PCP is Dr. Briggs. Toño Robison with ethics consulted for decision making (see note), pt retains a fair level of decision making. Pt does not qualify for [facility] inpatient rehab. OT/PT/HISTOLOGY TECHNOLOGIST rec SNF. Pt is still over assets for LT Medicaid, 30-day Medicaid LTC SNF stay is not an option. Pt CIWA is down to 3 so this afternoon so CM met w pt. Pt reports she can access money from her trust, the $10k for a month at a SNF even but it takes time to access and she wants to go home first. Pt is asked if she would be willing to d/c to an inpatient alcohol treatment program if available, pt says no and is adamant she will go home. Pt reports she hired unskilled help after recent discharges but had to fire them as they ruined items in her kitchen, she does not recall the name of the agency. Pt states she may hire help again because she needs help with laundry. Pt lives in a single-family home and there are stairs. CM challenged pt to think about what can be done different this d/c to prevent re-admisson, pt is limited though in ability to problem solve and has memory problems. Pt also reports she notices she is having trouble reading. CM to consult with CM management and follow pt. Date Signed: 08/06/2017 05:15 PM Electronically Signed By:JOSE Dsouza
[2017-08-06] MEDS: GABAPENTIN 100 MG CAP PO SCH (21:08)
[2017-08-06] MEDS: METHOCARBAMOL 500 MG TAB PO SCH (21:10)
[2017-08-07] MEDS: LORazepam 2 MG/ML INJ IVP PRN (04:22)
[2017-08-07] MEDS: ACETAMINOPHEN 325 MG TAB PO PRN ×2 (04:22→22:17)
[2017-08-07] MEDS: SUCRALFATE 1 GM TAB PO SCH ×4 (05:22→22:24)
--- NOTE | 2017-08-07 08:33 | NEUROPROG ---
Assessment: As noted, the patient is not a good candidate for full anticoagulation. The question was raised of potentially adding Plavix on top of aspirin. We talked about this, and we are going to simply use aspirin for now because of the potential increased risk of bleeding with her low platelets. If she can get better control of her alcoholism and platelets can improve then she might be a candidate eventually for full anticoagulation. She understands that she does have significant risk of bleeding as well as stroke and said she would be willing to resume alcoholics anonymous again. Total unit time of 25 min with greater than 50% of the time counseling coordination of care. If therapy feels she is safe for discharge home, then there are no other reasons I would hold her in the hospital from a neurologic standpoint. She was instructed to follow up with us in Neurology in the next month. 08/07/17: total unit time of 15 minutes. Pt is stable on aspirin for stroke prevention and stable or slightly improved right visual field loss. OK to discharge from my standpoint Subjective: Pt notes no new complaints, still aware of right visual field change. Objective: Vital Signs Temp Pulse Resp BP Pulse Ox 36.8 C 76 17 133/91 H 94 08/07/17 07:26 08/07/17 07:26 08/07/17 07:26 08/07/17 07:26 08/07/17 07:26 Laboratory Results 08/06/17 04:37 08/06/17 04:37 08/06/17 08/07/17 08/08/17 05:59 05:59 05:59 Intake Total 1250 1300 Output Total 200 Balance 1250 1100 PT 15.6 SEC (12.0-15.0) H 08/03/17 20:35 INR 1.22 (0.83-1.16) H 08/03/17 20:35 Allergies/Adverse Reactions: Sulfa (Sulfonamide Antibiotics) Allergy (Mild, Verified 07/27/17 00:21) Rash
[2017-08-07] MEDS: ASCORBIC ACID 500 MG TAB PO SCH ×2 (08:47→22:25)
[2017-08-07] MEDS: DILTIAZEM XR 240 MG CAP PO SCH (08:47)
[2017-08-07] MEDS: ASPIRIN 81 MG CHEWABLE TAB PO SCH (08:47)
[2017-08-07] MEDS: SERTRALINE HCL 100 MG TAB PO SCH (08:47)
[2017-08-07] MEDS: LEVOTHYROXINE 125 MCG TAB PO SCH (08:47)
[2017-08-07] MEDS: FOLIC ACID 1 MG TAB PO SCH (08:47)
[2017-08-07] MEDS: MULTIVITAMINS 1 EACH TAB PO SCH (08:47)
[2017-08-07] MEDS: PANTOPRAZOLE SODIUM 40 MG TAB PO SCH ×2 (08:47→22:26)
--- NOTE | 2017-08-07 15:34 | HOSPPROG ---
Hospitalist Progress Note Assessment/Plan: 62-year-old alcoholic who is admitted with hemianopsia. Found to have a stroke on her MRI. Reviewed with Dr. Ballesteros. Pt slightly more oriented today but got lost on the floor. Has stairs in her house and has yet to work on stairs with PT. Refusing SNF as she would be self pay. # acute stroke left temporal and occipital lobe. 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 * Continue CIWA, has not needed ativan today. * Multiple admissions for alcoholism without clear evidence she has tried to quit, she is interested in quitting today per her report and has some friends that will help her * Continue to monitor her today with speech cognitive therapy as well as physical and occupational therapy * Will need additional midnight stay due to ongoing alcohol withdrawal noted today. * She should not drive. I discussed this with this patient and she is agreeable to not drive. # bone marrow suppression due to alcoholism. Anemia and low platelets. Status post 1 unit packed red blood cells this admission given her acute stroke symptoms # history of DVT and PE, patient not candidate for anticoagulation # history of atrial fibrillation, patient not candidate for anticoagulation dispo; Pt will dc home with home care. She is unstable and has not yet worked on stairs with PT. She has stairs in her house to use the shower, etc. She has no functioning toilet on the ground floor and does state she is going to call and get her toilet fixed. Poor prognosis intermediate frame tender, dc when she works with PT, OT another day or 2. Subjective: does state she had a stroke Objective: Vital Signs Temp Pulse Resp BP Pulse Ox 37.3 C 81 20 114/68 93 08/07/17 11:38 08/07/17 11:38 08/07/17 11:38 08/07/17 11:38 08/07/17 11:38 Laboratory Results 08/06/17 04:37 08/06/17 04:37 08/06/17 08/07/17 08/08/17 05:59 05:59 05:59 Intake Total 1250 1300 Output Total 200 Balance 1250 1100 PT 15.6 SEC (12.0-15.0) H 08/03/17 20:35 INR 1.22 (0.83-1.16) H 08/03/17 20:35 - Physical Exam Constitutional: no apparent distress, unkempt Eyes: PERRL Respiratory: no respiratory distress ICD10 Worksheet Patient Problems: Problems Problem Status Onset Abdominal pain Acute Ankle fracture Acute GI bleed Acute Atrial fibrillation Acute Alcohol intoxication Acute Cardiac arrest Acute UTI (urinary tract infection) Acute Hypomagnesemia Acute Homonymous hemianopsia Acute Alcohol withdrawal Acute Nausea and vomiting in adult Acute Alcohol abuse Acute Nausea & vomiting Acute Vomiting Acute Atrial fibrillation with RVR Acute C. difficile diarrhea Acute 09/23/16 Alcohol withdrawal Acute
[2017-08-07] MEDS: THIAMINE HCL 100 MG TAB PO SCH ×3 (15:51→22:26)
--- NOTE | 2017-08-07 16:54 | ASMTCMCOM ---
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 Today pt tells Cristopher morales [facility] she has no PCP. Pt needs to establish PCP for skilled HC services to start, this was explained to pt and friend Renay. CM can assist with a [facility] appointment and pt can be provided the walk-in clinic information once more. Pt completed paperwork naming friend Renay Carbone RUZI. CM to follow. Date Signed: 08/07/2017 04:53 PM Electronically Signed By:JOSE Dsouza
[2017-08-07] MEDS: METHOCARBAMOL 500 MG TAB PO SCH (22:25)
[2017-08-07] MEDS: GABAPENTIN 100 MG CAP PO SCH (22:25)
[2017-08-08] MEDS: ACETAMINOPHEN 325 MG TAB PO PRN (04:00)
[2017-08-08] MEDS: SUCRALFATE 1 GM TAB PO SCH ×2 (06:17→11:54)
[2017-08-08 08:37] VITALS: BP 111/70
--- NOTE | 2017-08-08 08:50 | ASMTCMCOM ---
CM Note CM Note Notes: Pt is open with [facility], Corina with [facility] has been trying to set pt up with behavioral health services and pt has been non-responsive. Corina met with pt yesterday and pt agreed to a home visit. Date Signed: 08/08/2017 08:49 AM Electronically Signed By:JOSE sDouza
[2017-08-08] MEDS: THIAMINE HCL 100 MG TAB PO SCH (08:58)
[2017-08-08] MEDS: ASPIRIN 81 MG CHEWABLE TAB PO SCH (08:59)
[2017-08-08] MEDS: DILTIAZEM XR 240 MG CAP PO SCH (08:59)
[2017-08-08] MEDS: LEVOTHYROXINE 125 MCG TAB PO SCH (08:59)
[2017-08-08] MEDS: SERTRALINE HCL 100 MG TAB PO SCH (08:59)
[2017-08-08] MEDS: ASCORBIC ACID 500 MG TAB PO SCH (08:59)
[2017-08-08] MEDS: PANTOPRAZOLE SODIUM 40 MG TAB PO SCH (08:59)
[2017-08-08] MEDS: MULTIVITAMINS 1 EACH TAB PO SCH (08:59)
[2017-08-08] MEDS: FOLIC ACID 1 MG TAB PO SCH (08:59)
--- NOTE | 2017-08-08 10:20 | HOSPPROG ---
Hospitalist Progress Note Assessment/Plan: 62-year-old alcoholic who is admitted with hemianopsia. Found to have a stroke on her MRI. Reviewed with Dr. Ballesteros. Pt slightly more oriented today but got lost on the floor. Has stairs in her house and has yet to work on stairs with PT. Refusing SNF as she would be self pay. # acute stroke left temporal and occipital lobe. 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 * Continue CIWA, has not needed ativan today. * Multiple admissions for alcoholism without clear evidence she has tried to quit, she is interested in quitting today per her report and has some friends that will help her * Continue to monitor her today with speech cognitive therapy as well as physical and occupational therapy * Will need additional midnight stay due to ongoing alcohol withdrawal noted today. * She should not drive. I discussed this with this patient and she is agreeable to not drive. # bone marrow suppression due to alcoholism. Anemia and low platelets. Status post 1 unit packed red blood cells this admission given her acute stroke symptoms # history of DVT and PE, patient not candidate for anticoagulation # history of atrial fibrillation, patient not candidate for anticoagulation dispo; home w home care >30 minutes Subjective: ready for dc. refusing snf Objective: Vital Signs Temp Pulse Resp BP Pulse Ox 37.1 C 82 15 111/70 93 08/08/17 08:00 08/08/17 08:59 08/08/17 08:00 08/08/17 08:59 08/08/17 08:00 Laboratory Results 08/06/17 04:37 08/06/17 04:37 08/07/17 08/08/17 08/09/17 05:59 05:59 05:59 Intake Total 1300 950 Output Total 200 Balance 1100 950 PT 15.6 SEC (12.0-15.0) H 08/03/17 20:35 INR 1.22 (0.83-1.16) H 08/03/17 20:35 - Physical Exam Constitutional: no apparent distress, appears nourished Eyes: PERRL, anicteric sclera Ears, Nose, Mouth, Throat: hearing normal Cardiovascular: regular rate and rhythym, no murmur, rub, or gallop Respiratory: no respiratory distress, no rales or rhonchi Gastrointestinal: normoactive bowel sounds, soft, non-tender abdomen Genitourinary: no bladder fullness, No nicole in urethra Skin: warm, normal color Musculoskeletal: full muscle strength Neurologic: No AAOx3 ICD10 Worksheet Patient Problems: Problems Problem Status Onset Homonymous hemianopsia Acute Abdominal pain Acute Alcohol abuse Acute Alcohol intoxication Acute Alcohol withdrawal Acute Alcohol withdrawal Acute Ankle fracture Acute Atrial fibrillation Acute Atrial fibrillation with RVR Acute C. difficile diarrhea Acute 09/23/16 Cardiac arrest Acute GI bleed Acute Hypomagnesemia Acute Nausea & vomiting Acute Nausea and vomiting in adult Acute UTI (urinary tract infection) Acute Vomiting Acute
--- NOTE | 2017-08-08 10:23 | PDIAF ---
- Diagnosis Diagnosis: cva, alcoholism Code Status: Full Code - Medication Management Discharge Medications: Medications to Continue on Transfer Acetaminophen [Tylenol 325mg (*)] 650 mg PO Q4HRS PRN tab 05/08/17 [Last Taken 07/13/17] Ferrous Sulfate [Slow Fe 140 MG (*)] 140 mg PO DAILY #30 tab.er 05/08/17 [Last Taken 07/13/17] LORazepam [Ativan (*)] 0.5 mg PO Q4HRS PRN #10 tab 05/08/17 [Last Taken 07/13/17 ] Pantoprazole Sodium [Protonix 40mg (*)] 40 mg PO BID #60 tab 05/08/17 [Last Taken 07/13/17] Diltiazem Xr [Dilacor Xr] 240 mg PO DAILY 05/31/17 [Last Taken 07/13/17] Gabapentin [Neurontin 100 MG (*)] 100 mg PO HS 05/31/17 [Last Taken 07/13/17] Sucralfate [Carafate 1 GM (*)] 1 gm PO QID 05/31/17 [Last Taken 07/13/17] Multivitamins [Multivitamin (*)] 1 each PO DAILY 06/25/17 [Last Taken 07/13/17] Sertraline HCl [Zoloft 100mg (*)] 100 mg PO DAILY 06/25/17 [Last Taken 07/13/17] Ondansetron Odt [Zofran Odt 4 mg (*)] 4 mg PO Q4PRN PRN #20 tab 07/01/17 [Last Taken 07/13/17] Ascorbic Acid [Vitamin C 500 mg (*)] 500 mg PO BID 07/13/17 [Last Taken 07/13/17 ] Levothyroxine Sodium 125 mcg PO DAILY 07/13/17 [Last Taken 07/13/17] HYDROmorphone HCL [Dilaudid 2 mg (*)] 2 mg PO Q4H PRN 08/03/17 [Last Taken Unknown] Methocarbamol [Robaxin 500 mg (*)] 1,000 mg PO HS 08/03/17 [Last Taken Unknown] oxyCODONE IR [Oxycodone Ir (*)] 5 mg PO Q4H PRN 08/03/17 [Last Taken Unknown] traZODone [traZODONE 50MG (*)] 50 mg PO HS PRN 08/03/17 [Last Taken Unknown] Aspirin [Aspirin 81mg (*)] 81 mg PO DAILY tab.chew 08/08/17 [Last Taken Unknown ] Discharge Medications: Refer to the Discharge Home Medication list for PRN reason. - Orders Services needed: Home Care, Physical Therapy Home Care Face to Face: I certify that this patient was under my care and that I had the required [id number] encounter meeting the encounter requirements on the discharge day. My findings support the fact that the patient is homebound as defined in Home Care Face to Face Continued: CMS Chapter 7 Medicare Benefits Manual 30.1.1 , The condition of the patient is such that there exists a normal inability to leave home and consequently, leaving home would require a considerable and taxing effort. Isolation Type: None Diet Texture: Regular Texture Diet, Thin Liquids - Follow Up Care Current Providers and Referrals: NONE *PRIMARY CARE P,. [Primary Care Provider] - As per Instructions
--- NOTE | 2017-08-08 16:11 | ASDISCHSUM ---
Discharge Information Plan Status:Home with Home Health Medically Cleared to Leave: Discharge Date:08/08/2017 01:48 PM D/C Disposition:Home Health Service ADT D/C Disposition:Home, Routine, Self-Care Projected Discharge Date:08/08/2017 11:00 AM Transportation at D/C:Friend Discharge Delay Reason: Follow-Up Date:08/08/2017 11:00 AM Discharge Slot: Final Diagnosis: Placement Information Referral Type:*Home Health Care Services Referral ID:[id number] Provider Name:[facility] Address 1:[address] [address] Address 2: City:[place] Selection Factors: State:[place] Patient Contact Information Contact Name:BATSHEVA Relationship:Friend Address: Work Phone: City: [facility] Phone: [facility] Code: Email: Financial Information Financial Class:Medicaid Primary Plan Desc:[place] Primary Plan Number:[id number] Secondary Plan Desc: Secondary Plan Number: Assessment Information LACE LACE Length of stay for Answers: 2 days current admission Acuity / Level of Answers: Yes Care: Did the patient have an inpatient admission? Comorbidities - select Answers: Cerebrovascular disease all that apply (CVA, TIA, aneurysms, vasc ular dementia) Other Notes: hx of pancreatitis, ETO H abuse, w/D seizures, DVT/PE # of Emergency department Answers: 12+ visits in the last 6 months Social determinants Answers: History of substance abuse (ETOH, street drugs, prescription drugs, etc.) Mental health diagnosis (anxiety, depression, pers onality disorders, etc.) Score: 19 Date Signed: 08/04/2017 04:47 PM Electronically Signed By:Maris Martinez RN [facility] CM Progress Note CM Note CM Note Notes: Pt admitted w/CVA. she has had multiple ER visits and admissions over last few months. Pt also has hx and current alcohol abuse. Pt last dc'd July 13, was set up w/[facility] at that time. CM left voicemail today with [facility] to discuss. PT recommending Inpt rehab, OT and SP recommending SNF. I discussed this w/pt and she said that she is not interested in going to rehab. She plans to dc home where she lives alone. She does not have help coming into the home but states she has some friends she could call on. When I asked if she currently had HHC she said she did not and did not seem to remember that this was what we set her up with last visit to hospital. Discussd case w/Dr. Jauregui who would like to bring Ethics in to help determine if pt is decisional. CM left voicemail for Ethics team. Pt has signed release and given nursing staff permission to discuss w/ friend, Renay Carbone ([phone]). Current dc plan: TBD, pt does not seem safe at this time to dc home alone. Date Signed: 08/04/2017 05:01 PM Electronically Signed By:Maris Martinez RN [facility] Progress Note CM Note CM Note Notes: CM met with friend of patient, Renay Carbone who expressed deep concern for patients well being specifically around memory and decision making around returning home. She shared she was talking to the patient and the patient didn't understand it was 2017, she believed it was 2007. Renay eladio Nicole prefers to go by Clarisse, they have been best friends for many years, and Clarisse has been dealing with alcoholism the whole time. She reports the patient only has a sister that is living & the thinks is Clarisse's MDPOA. Sisters name is Milton, but she does not have last name and has no contact info. The patient lives in a home she owns, Renay reports is unkempt and she believes unsafe to be in (mounds of trash, clogged toilet). When home, Clarisse still drives. CM consulted with Barbara Rothman about legal case, chart shows friend Renay Carbone is listed as requested to assit with surrogate health care decision maker. CM did not contact [employer] services today. CM then met with patient and friend Renay. CM explained PT, OT and ST have recommended SNF. Clarisse states approval of referrals to be placed with facilities near [place] but is not ready to commit to anything at this time. CM shared info about [facility] and Medicaid CM, gave phone number [phone] and info sheet print out. Renay will call tomorrow. We discussed LTC Medicaid and focused the discussion on HCBS, the patient states she may be open to this - CM shared it was mentioned the member attempted to apply in the past but was denied due to assets, the patient did not mention recalling this process. This may be a possible referral the patient would be interested in pursuing. No dishcarge date indicated at this time, CM available for ongoing CM needs. D/C Plan: SNF. & possible LTC Medicaid referral. PASSR still needs to be completed for referrals. Date Signed: 08/05/2017 04:46 PM Electronically Signed By:Sandra Keane [facility] CM Progress Note CM Note CM Note Notes: Cindy with [facility] reports [facility] was never able to open pt for skilled care the two times they were referred due to pt non-compliance. Pt would not follow up with PCP or return calls. Cindy has assessed pt does not want to share her private life and allow people into her home. [facility] would not accept pt referral again, review of chart also indicates [facility] declines providing pt services due to her behavior. Pt reports her current PCP is Dr. Briggs. Toño Robison with ethics consulted for decision making (see note), pt retains a fair level of decision making. Pt does not qualify for [facility] inpatient rehab. 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 Pt is still over assets for LTC Medicaid, 30-day Medicaid LTC SNF stay is not an option. Pt CIWA is down to 3 so this afternoon so CM met w pt. Pt reports she can access money from her trust, the $10k for a month at a SNF even but it takes time to access and she wants to go home first. Pt is asked if she would be willing to d/c to an inpatient alcohol treatment program if available, pt says no and is adamant she will go home. Pt reports she hired unskilled help after recent discharges but had to fire them as they ruined items in her kitchen, she does not recall the name of the agency. Pt states she may hire help again because she needs help with laundry. Pt lives in a single-family home and there are stairs. CM challenged pt to think about what can be done different this d/c to prevent re-admisson, pt is limited though in ability to problem solve and has memory problems. Pt also reports she notices she is having trouble reading. CM to consult with CM management and follow pt. Date Signed: 08/06/2017 05:15 PM Electronically Signed By:JOSE Dsouza [facility] CM Progress Note CM Note CM Note Notes: [facility] can accept pt for skilled [facility] PT/OT/EAR MACHINE OPERATOR. Today pt tells Cristopher morales [facility] she has no PCP. Pt needs to establish PCP for skilled services to start, this was explained to pt and friend Renay. CM can assist with a [facility] appointment and pt can be provided the walk-in clinic information once more. Pt completed paperwork naming friend Renay Carbone RUIZ. CM to follow. Date Signed: 08/07/2017 04:53 PM Electronically Signed By:JOSE Dsouza [facility] Progress Note CM Note CM Note Notes: Pt is open with [facility], Corina with [facility] has been trying to set pt up with behavioral health services and pt has been non-responsive. Corina met with pt yesterday and pt agreed to a home visit. Date Signed: 08/08/2017 08:49 AM Electronically Signed By:JOSE Dsouza [facility] Progress Note CM Note CM Note Notes: Pt medically stable for d/c home with [facility] PT. CM attempted to assist pt in establishing a PCP. Bushra at [facility] reports pt has had several no-show appointments on record. Bushra was able to schedule pt for an appointment today at 11:40am. This CM talked to pt about the [facility] appointment today, CM could provide a cab there and pt declines the appointment. Pt said she needs a break from a medical environment and does not want to go to appointment today. Today pt states she does have a PCP, cannot remember her name and offers to call CM with the name, pt reports she wants to set up her own PCP appointment. Orders sent to [facility] via [employer]. Pt will need PCP for [facility] to establish care, pt was once again informed about this. [facility] will continue to follow pt. Pt friend Renay transported home. Pt states besides friend Renay her supports are her neighbors. Pt reports she plan on attending AA meetings and is provided the list of local meetings. Due to the concern pt friend Renay Carbone reported about bags of feces in the home due to clogged toilet an APS report made with [facility] worker Tawny Bella, it will be reviewed by the [facility] tomorrow to determine next steps. Date Signed: 08/08/2017 04:10 PM Electronically Signed By:JOSE Dsouza Intervention Information
--- NOTE | 2017-08-08 16:11 | ASMTCMCOM ---
CM Note CM Note Notes: Pt medically stable for d/c home with [facility] PT. CM attempted to assist pt in establishing a PCP. Bushra at [facility] reports pt has had several no-show appointments on record. Bushra was able to schedule pt for an appointment today at 11:40am. This CM talked to pt about the [facility] appointment today, CM could provide a cab there and pt declines the appointment. Pt said she needs a break from a medical environment and does not want to go to appointment today. Today pt states she does have a PCP, cannot remember her name and offers to call CM with the name, pt reports she wants to set up her own PCP appointment. Orders sent to [facility] via [employer]. Pt will need PCP for [facility] to establish care, pt was once again informed about this. [facility] will continue to follow pt. Pt friend Renay transported home. Pt states besides friend Renay her supports are her neighbors. Pt reports she plan on attending AA meetings and is provided the list of local meetings. Due to the concern pt friend Renay Carbone reported about bags of feces in the home due to clogged toilet an APS report made with [facility] worker Tawny Bella, it will be reviewed by the [facility] tomorrow to determine next steps. Date Signed: 08/08/2017 04:10 PM Electronically Signed By:JOSE Dsouza
--- NOTE | 2017-08-09 03:58 | GDS ---
[f rep st] DISCHARGE SUMMARY DISCHARGE DIAGNOSES: 1. Alcoholism. 2. Cirrhosis. 3. Memory impairment. 4. Acute infarct in left mesial temporal and occipital lobe. 5. Recurrent falls. Please see admission history and physical by Dr. Traci Avila. The patient presented with fall and h emianopsia, stroke on MRI. The patient was started on aspirin. She cannot be anticoagulated, she do es have a history of atrial fibrillation, because of her multiple falls. A statin was not started gi rosalia the contraindication given her liver disease. The patient has multiple admissions for alcohol-re lated falls. She had not had significant withdrawal here. The patient has thrombocytopenia, but asp irin was started because of her stroke. The patient is discharged home as she is out of SNF days and refusing self-pay. Home PT, OT, and jeannie e care were set up. /[id number]/MODL
== END 2017-08-08 13:48 | disposition home health service (06) | DRG 45 ==
LOC: EDUNIT# → OBSVTOIN 20:35 → F3N 21:49
PROVIDERS: ADMIT Hospitalist; ATTEND Internal Medicine
PROC: 30233N1 Transfusion of Nonautologous Red Blood Cells into Peripheral Vein, Percutaneous Approach (ICD-10-PCS; principal; 2017-08-04)
DX: I63.9 Cerebral infarction, unspecified (principal); F10.20 Alcohol dependence, uncomplicated; K70.30 Alcoholic cirrhosis of liver without ascites; H53.461 Homonymous bilateral field defects, right side; D64.9 Anemia, unspecified; R41.3 Other amnesia; E03.9 Hypothyroidism, unspecified; D69.6 Thrombocytopenia, unspecified; M79.89 Other specified soft tissue disorders; I48.0 Paroxysmal atrial fibrillation; F32.9 Major depressive disorder, single episode, unspecified; Z91.81 History of falling; Z86.711 Personal history of pulmonary embolism; Z86.718 Personal history of other venous thrombosis and embolism; Z23 Encounter for immunization
CPT/HCPCS: 92523-GN; 97116-GP; 97161-GP; 97166-GO; 97530-GO; 97530-GP; 97535-GO; G0009; G0378; G0480; G0515-GO; J2060; J3411; P9016; Q9967

== ENCOUNTER 2017-08-13 00:46 | Emergency (ER) | payer MEDICAID ==
[2017-08-13 00:51] VITALS: BP 112/60
--- NOTE | 2017-08-13 02:31 | EDPHY ---
H & P Stated Complaint: in by ems c/o back pain. patient appears to be under the influence of etoh Time Seen by Provider: 08/13/17 01:06 HPI/ROS: HPI The patient presents with lower back pain, brought in by paramedics. She called 911 because her back was hurting her. She has also been drinking alcohol throughout the course of the evening. Upon arrival here, she denies any back pain or any other complaints. She questions why she is here. She does have recent history of ischemic stroke and presented with homonymous hemianopsia. She says her vision has actually improved significantly. She denies any loss of consciousness, headache, vision change.. REVIEW OF SYSTEMS Constitutional: No fever, no chills. Eyes: No discharge. ENT: No sore throat. Cardiovascular: No chest pain, no palpitations. Respiratory: No cough, no shortness of breath. Gastrointestinal: No abdominal pain, no vomiting. Genitourinary: No hematuria. Musculoskeletal: No back pain. Skin: No rashes. Neurological: No headache. PMHx: See below Soc Hx: Lives independently, chronic alcohol abuse, frequent ER visits PHYSICAL General Appearance: Alert, obviously intoxicated Eyes: Pupils equal and round no pallor or injection ENT, Mouth: Mucous membranes moist Respiratory: There are no retractions, lungs are clear to auscultation Cardiovascular: Regular rate and rhythm Gastrointestinal: Abdomen is soft and non-tender, no masses, bowel sounds normal Neurological: A&O, moves all extremities Skin: Warm and dry, no rashes Musculoskeletal: Neck is supple non tender Extremities: symmetrical, full range of motion Psychiatric: Patient is oriented X 3, there is no agitation Source: Patient, EMS, Old records Exam Limitations: Intoxication - Personal History Current Tetanus/Diphtheria Vaccine: Unsure Current Tetanus Diphtheria and Acellular Pertussis (TDAP): Unsure Tetanus Vaccine Date: 2014 - Medical/Surgical History Hx Asthma: No Hx Chronic Respiratory Disease: No Hx Diabetes: No Hx Cardiac Disease: Yes Hx Renal Disease: No Hx Cirrhosis: No Hx Alcoholism: Yes Hx HIV/AIDS: No Hx Splenectomy or Spleen Trauma: No Other PMH: PMHx: Alcoholism, degenerative disc disease, osteoarthritis, scoliosis, heart murmur, a-fib, C difficile-Dec 2015, hx withdrawal, pancreatitis, R leg fx, OR. PSHx: tonsillectomy - Social History Smoking Status: Never smoked Constitutional: Initial Vital Signs Temperature (C) 36.4 C 08/13/17 00:49 Heart Rate 78 08/13/17 00:49 Respiratory Rate 18 08/13/17 00:49 Blood Pressure 112/60 08/13/17 00:49 O2 Sat (%) 93 08/13/17 00:49 O2 Delivery Mode Room Air Allergies/Adverse Reactions: Sulfa (Sulfonamide Antibiotics) Allergy (Mild, Verified 08/13/17 00:49) Rash Home Medications: Medication Instructions Recorded Acetaminophen [Tylenol 325mg (*)] 650 mg PO Q4HRS PRN tab 05/08/17 Ferrous Sulfate [Slow Fe 140 MG 140 mg PO DAILY #30 tab.er 05/08/17 (*)] LORazepam [Ativan (*)] 0.5 mg PO Q4HRS PRN #10 tab 05/08/17 Pantoprazole Sodium [Protonix 40mg 40 mg PO BID #60 tab 05/08/17 (*)] Diltiazem Xr [Dilacor Xr] 240 mg PO DAILY 05/31/17 Gabapentin [Neurontin 100 MG (*)] 100 mg PO HS 05/31/17 Sucralfate [Carafate 1 GM (*)] 1 gm PO QID 05/31/17 Multivitamins [Multivitamin (*)] 1 each PO DAILY 06/25/17 Sertraline HCl [Zoloft 100mg (*)] 100 mg PO DAILY 06/25/17 Ondansetron Odt [Zofran Odt 4 mg 4 mg PO Q4PRN PRN #20 tab 07/01/17 (*)] Ascorbic Acid [Vitamin C 500 mg 500 mg PO BID 07/13/17 (*)] Levothyroxine Sodium 125 mcg PO DAILY 07/13/17 HYDROmorphone HCL [Dilaudid 2 mg 2 mg PO Q4H PRN 08/03/17 (*)] Methocarbamol [Robaxin 500 mg (*)] 1,000 mg PO HS 08/03/17 oxyCODONE IR [Oxycodone Ir (*)] 5 mg PO Q4H PRN 08/03/17 traZODone [traZODONE 50MG (*)] 50 mg PO HS PRN 08/03/17 Aspirin [Aspirin 81mg (*)] 81 mg PO DAILY tab.chew 08/08/17 Medical Decision Making Differential Diagnosis: This is a 62-year-old female with longstanding history of alcohol abuse, recent CVA presenting with homonymous hemianopsia who presents from home brought in by ambulance for back pain. She now declines any back pain or any other complaints. She does seem intoxicated. She says that her vision is improving. I do not see any signs of new stroke. I doubt any serious pathology. We planned on doing blood testing, however she declines. We were able to obtain a urinalysis which is normal making pyelonephritis or ureterolithiasis less likely. She will be discharged home in a taxi. Departure - Departure Disposition: Home, Routine, Self-Care Clinical Impression: Alcohol dependence, Alcohol intoxication, Back pain Condition: Good Instructions: Alcohol Intoxication (ED) Referrals: Makenzie Briggs MD [Medical Doctor] - As per Instructions
== END 2017-08-13 02:53 | disposition home or self-care (01) ==
LOC: EDUNIT# → EDBD
DX: M54.9 Dorsalgia, unspecified (principal); F10.220 Alcohol dependence with intoxication, uncomplicated; I25.2 Old myocardial infarction; Z79.82 Long term (current) use of aspirin
CPT/HCPCS: 80305

== ENCOUNTER 2017-08-19 18:19 | Emergency (ER) | payer MEDICAID ==
--- NOTE | 2017-08-19 19:04 | EDPHY ---
H & P Time Seen by Provider: 08/19/17 18:28 HPI/ROS: CHIEF COMPLAINT: Right leg pain and swelling HISTORY OF PRESENT ILLNESS: 62-year-old female presents to the emergency department with her sister complaining of pain in her right leg in complaining of swelling. She denies any known trauma or injury. She states that she does not remember falling. Her sister tells me that she drinks alcohol "a lot every day". She denies pain in her chest or difficulty breathing. Denies abdominal pain. Denies neck or back pain. Denies a headache. Denies pain in her right knee or right hip. Denies pain in her left hip or knee. She has some mild left ankle pain as well. No pain in her upper extremities. REVIEW OF SYSTEMS: Constitutional: No fever, no chills. Eyes: No double or blurry vision. ENT: No sore throat. Respiratory: No cough, no shortness of breath. Cardiac: No chest pain. Gastrointestinal: No abdominal pain, vomiting or diarrhea. Genitourinary: No dysuria. Musculoskeletal: No neck or back pain. Skin: No rashes. Neurological: No headache. Past Medical/Surgical History: Alcoholism, degenerative disc disease, osteoarthritis, scoliosis, atrial fibrillation, pancreatitis, history of right tib-fib fracture March of 2017 Social History: Lives alone in [place] Smoking Status: Never smoked Physical Exam: General Appearance: Alert, no distress. No visible signs of trauma to her head. Eyes: Pupils equal and round. Extraocular motions are all intact. ENT: Mouth: Mucous membranes moist. Respiratory: No wheezing, rhonchi, or rales, lungs are clear to auscultation. Cardiovascular: Regular rate and rhythm. Gastrointestinal: Abdomen is soft and nontender, no masses, no rebound or guarding, bowel sounds normal. Neurological: Alert and oriented x 2, confused on date and time. cranial nerves II through XII grossly intact Skin: Skin is warm and dry. Her right leg reveals well-healed surgical incision to the anterior distal aspect of the right lower leg. Just lateral to the incision there is an Ethilon suture noted. There is no redness or warmth. It is swollen from about the mid calf down to her right foot. She has full dorsi and plantar flexion of the right foot. Full range of motion of her right knee. Full range of motion of her right hip. There is some mild swelling noted to the left ankle. Full range of motion of the left ankle. Nontender to palpate the left ankle. Musculoskeletal: Nontender to palpate along the cervical, thoracic or lumbar spine. Neck is supple. Extremities: Full range of motion and no peripheral edema. Psychiatric: no agitation. Constitutional: Initial Vital Signs Temperature (C) 36.9 C 08/19/17 18:19 Heart Rate 87 08/19/17 18:19 Respiratory Rate 20 08/19/17 18:19 Blood Pressure 138/88 H 08/19/17 18:19 O2 Sat (%) 94 08/19/17 18:19 O2 Delivery Mode Room Air Allergies/Adverse Reactions: Sulfa (Sulfonamide Antibiotics) Allergy (Mild, Verified 08/19/17 18:24) Rash Home Medications: Medication Instructions Recorded Acetaminophen [Tylenol 325mg (*)] 650 mg PO Q4HRS PRN tab 05/08/17 Ferrous Sulfate [Slow Fe 140 MG 140 mg PO DAILY #30 tab.er 05/08/17 (*)] LORazepam [Ativan (*)] 0.5 mg PO Q4HRS PRN #10 tab 05/08/17 Pantoprazole Sodium [Protonix 40mg 40 mg PO BID #60 tab 05/08/17 (*)] Diltiazem Xr [Dilacor Xr] 240 mg PO DAILY 05/31/17 Gabapentin [Neurontin 100 MG (*)] 100 mg PO HS 05/31/17 Sucralfate [Carafate 1 GM (*)] 1 gm PO QID 05/31/17 Multivitamins [Multivitamin (*)] 1 each PO DAILY 06/25/17 Sertraline HCl [Zoloft 100mg (*)] 100 mg PO DAILY 06/25/17 Ondansetron Odt [Zofran Odt 4 mg 4 mg PO Q4PRN PRN #20 tab 07/01/17 (*)] Ascorbic Acid [Vitamin C 500 mg 500 mg PO BID 07/13/17 (*)] Levothyroxine Sodium 125 mcg PO DAILY 07/13/17 HYDROmorphone HCL [Dilaudid 2 mg 2 mg PO Q4H PRN 08/03/17 (*)] Methocarbamol [Robaxin 500 mg (*)] 1,000 mg PO HS 08/03/17 oxyCODONE IR [Oxycodone Ir (*)] 5 mg PO Q4H PRN 08/03/17 traZODone [traZODONE 50MG (*)] 50 mg PO HS PRN 08/03/17 Aspirin [Aspirin 81mg (*)] 81 mg PO DAILY tab.chew 08/08/17 Medical Decision Making - Diagnostics Imaging Results: Imaging Impressions Tibia/Fibula X-Ray 08/19/17 18:57 Impression: 1. Stable ORIF x 4 months. 2. Chronic calf swelling. Extremity Venous Study 08/19/17 19:40 Impression: Calf edema. No deep vein thrombosis in the right lower extremity. Results communicated to Ana Villagomez at 20:13. Imaging: Discussed imaging studies w/ banquet server on call Radiologist, I viewed and interpreted images myself ED Course/Re-evaluation: ETOH breath 275 62-year-old female with multiple medical problems presents to the emergency department with pain and swelling in her right leg. She denies any known trauma or injury, however her sister states that she drinks "a lot of vodka every day". Patient states that it is possible that she fell and she does not remember. She does not have a headache. She does have a history of DVT. She also has a history of atrial fibrillation. She was most recently admitted to the hospital with CVA. She was not started on anticoagulant medication because of her high risk of falls. She is supposed to be taking a daily aspirin, however she has not done this. X-rays were obtained of the right leg. The patient does not remember ever breaking her leg or having surgical repair of her leg. She does have a history of memory impairment. Clinically I do not think this patient has cellulitis. I do not think antibiotics are indicated. She does have swelling in her right leg which looks as though it has improved since elevating her leg on the bed. Given her history of previous DVT, ultrasound of her right lower extremity has been ordered. Doppler ultrasound right lower extremity reveals no evidence of DVT. The patient was placed in a Thrasher boot. She was able to ambulate bit more comfortably in the emergency department. She will be discharged home with her sister. I did speak with her sister outside of the patient's room. The patient's sister will help to arrange follow-up appointment with her primary care provider this week. I did encourage the patient to return to the emergency department if she developed numbness or tingling in her toes, increasing pain or swelling, she had recurring falls, or any other concerns. Both the patient and sister at bedside verbalized understanding and agreed. Differential Diagnosis: Including but not limited to contusion, fracture, cellulitis, DVT Departure - Departure Disposition: Home, Routine, Self-Care Clinical Impression: Right leg pain Condition: Good Instructions: Leg Pain (ED) Additional Instructions: Weight bear as tolerated. You should follow up with your orthopedic surgeon, Dr. Donaldo Crabtree this week. When you are discharged from the hospital a week and half ago, it was recommended that you arrange PT, OT, and home health as an outpatient. You should follow up with your primary care provider this week to discuss this and to help them arrange for this to happen. Return to the emergency department if you developed worsening pain, numbness or tingling in her toes, difficulty walking, recurring falls, or if you feel worse in any way. Referrals: Donaldo Crabtree MD [Medical Doctor] - 2-3 days without fail (Orthopedic surgeon ) Makenzie Briggs MD [Primary Care Provider] - 1-2 days without fail
[2017-08-19 20:54] VITALS: BP 149/89
== END 2017-08-19 21:01 | disposition home or self-care (01) ==
LOC: EDUNIT#
DX: M79.604 Pain in right leg (principal); Z79.82 Long term (current) use of aspirin
CPT/HCPCS: L4386

== ENCOUNTER 2017-09-10 14:06 | Emergency (ER) | payer MEDICAID ==
--- NOTE | 2017-09-10 14:12 | EDPHY ---
H & P Time Seen by Provider: 09/10/17 14:11 - Personal History Tetanus Vaccine Date: 2014 - Medical/Surgical History Hx Asthma: No Hx Chronic Respiratory Disease: No Hx Diabetes: No Hx Cardiac Disease: Yes Hx Renal Disease: No Hx Cirrhosis: No Hx Alcoholism: Yes Hx HIV/AIDS: No Hx Splenectomy or Spleen Trauma: No Other PMH: PMHx: Alcoholism, degenerative disc disease, osteoarthritis, scoliosis, heart murmur, a-fib, C difficile-Dec 2015, hx withdrawal, pancreatitis, R leg fx, IA. PSHx: tonsillectomy - Social History Smoking Status: Never smoked Constitutional: Initial Vital Signs Temperature (C) 36.5 C 09/10/17 14:16 Heart Rate 76 09/10/17 14:16 Respiratory Rate 18 09/10/17 14:16 Blood Pressure 123/82 H 09/10/17 14:16 O2 Sat (%) 99 09/10/17 14:16 O2 Delivery Mode Room Air Allergies/Adverse Reactions: Sulfa (Sulfonamide Antibiotics) Allergy (Mild, Verified 08/19/17 18:24) Rash Home Medications: Medication Instructions Recorded Acetaminophen [Tylenol 325mg (*)] 650 mg PO Q4HRS PRN tab 05/08/17 Ferrous Sulfate [Slow Fe 140 MG 140 mg PO DAILY #30 tab.er 05/08/17 (*)] LORazepam [Ativan (*)] 0.5 mg PO Q4HRS PRN #10 tab 05/08/17 Pantoprazole Sodium [Protonix 40mg 40 mg PO BID #60 tab 05/08/17 (*)] Diltiazem Xr [Dilacor Xr] 240 mg PO DAILY 05/31/17 Gabapentin [Neurontin 100 MG (*)] 100 mg PO HS 05/31/17 Sucralfate [Carafate 1 GM (*)] 1 gm PO QID 05/31/17 Multivitamins [Multivitamin (*)] 1 each PO DAILY 06/25/17 Sertraline HCl [Zoloft 100mg (*)] 100 mg PO DAILY 06/25/17 Ondansetron Odt [Zofran Odt 4 mg 4 mg PO Q4PRN PRN #20 tab 07/01/17 (*)] Ascorbic Acid [Vitamin C 500 mg 500 mg PO BID 07/13/17 (*)] Levothyroxine Sodium 125 mcg PO DAILY 07/13/17 HYDROmorphone HCL [Dilaudid 2 mg 2 mg PO Q4H PRN 08/03/17 (*)] Methocarbamol [Robaxin 500 mg (*)] 1,000 mg PO HS 08/03/17 oxyCODONE IR [Oxycodone Ir (*)] 5 mg PO Q4H PRN 08/03/17 traZODone [traZODONE 50MG (*)] 50 mg PO HS PRN 08/03/17 Aspirin [Aspirin 81mg (*)] 81 mg PO DAILY tab.chew 08/08/17 Medical Decision Making - Diagnostics Imaging: I viewed and interpreted images myself ED Course/Re-evaluation: CHIEF COMPLAINT: Left shoulder pain HISTORY OF PRESENT ILLNESS: The patient is a 61 y/o female with alcoholism and 33 prior ED visits here in the last year complaining of left shoulder pain. She cannot tell me any information about what lead to her pain and denies trauma. No other apparent injuries, neck pain, back pain, weakness, or paresthesias. She has a history of frequent falls likely related to alcohol use and admits to alcohol use today. She is a poor historian. REVIEW OF SYSTEMS: Limited, patient is intoxicated and a poor historian. PHYSICAL EXAM: HR, BP, O2 Sat, RR. Temp noted General Appearance: Alert, well hydrated, appropriate, and chronically-ill- appearing. Smells of alcohol. Head: Atraumatic without scalp tenderness or obvious injury Eyes: Pupils equal, round, reactive to light and accommodation, EOMI, no trauma , no injection. Nose: Atraumatic, no rhinorrhea, clear. Throat: Mucus membranes moist. Neck: Supple. Respiratory: No distress. Lung sounds clear bilaterally. Cardiovascular: Left radial pulse intact. Good capillary refill all extremities. Gastrointestinal: Abdomen is soft, nontender, non-distended, no masses, no rebound, no guarding, no peritoneal signs. Musculoskeletal: Tenderness and ecchymosis over left shoulder extending onto clavicle. Otherwise atraumatic. Normal active ROM of all extremities. Neurological: Alert, appropriate, and interactive. Nonfocal. Skin: No rashes, good turgor, no nodules on palpation. Past medical history: Alcoholism, degenerative disc disease, osteoarthritis, scoliosis, heart murmur, a-fib, C difficile-Dec 2015, hx withdrawal, pancreatitis, R leg fx, IA. Past surgical history: Tonsillectomy Family history: Noncontributory Social history: Heavy alcohol use. Lives in [place]. DIAGNOSTICS/PROCEDURES/CRITICAL CARE TIME: Left shoulder x-ray: distal clavicle fracture DIFFERENTIAL DIAGNOSIS: The differential diagnosis for the patient's injury included but was not limited to fracture, ligamentous injury, contusion, muscular strain. MEDICAL DECISION MAKING: This is a 62 y/o female with a history of alcoholism who presents with what she reports as atraumatic left shoulder pain. She has diffuse ecchymosis and tenderness over her left shoulder and onto her clavicle. She is neurovascularly intact. Given history of alcohol abuse and falls and signs of intoxication today , I suspect she fell and landed on her left shoulder. No other obvious acute trauma noted. Plan for left shoulder x-ray. X-ray shows clavicle fracture. Patient will be placed in a sling and discharged with referral to ortho for follow up. Due to significant alcohol abuse, will not prescribe opioids for pain. Reassessed patient and discussed plan. Return precautions discussed. She is comfortable with this plan. Departure - Departure Disposition: Home, Routine, Self-Care Clinical Impression: Clavicle fracture Qualifiers: Encounter type: initial encounter Clavicle location: lateral end Fracture type : closed Fracture alignment: displaced Laterality: left Qualified Code(s): S42.032A - Displaced fracture of lateral end of left clavicle, initial encounter for closed fracture Condition: Good Instructions: Clavicle Fracture (ED) Additional Instructions: 1. Wear sling until follow up with orthopedist. 2. Use Tylenol and ibuprofen as directed for pain. Apply ice to sore areas intermittently over the next 24-48 hours. 3. Follow up with orthopedist this week. 4. Return to the ED for worsening of condition. Adult Pain & Fever Control: We recommend Acetaminophen (Tylenol) and Ibuprofen (Motrin,Advil) for pain and fever control. When fever is high or pain severe, both drugs can be used at the same time, but at different intervals. Please note the time differences. Your dose is: Acetaminophen 650mg every 4 to 6 hours Ibuprofen 600mg every 8 hours with food Note: do not take Acetaminophen with Hydrocodone (Vicodin, Lortab) or Oxycodone (Percocet). These medications also contain Acetaminophen. No more than 3000mg of Acetaminophen should be taken in 24 hours (for an adult). Referrals: Troy Retana MD [Medical Doctor] - As per Instructions Report Scribed for: Otis Tom Report Scribed by: Michelle Irvin Date of Report: 09/10/17 Time of Report: 14:23
[2017-09-10 14:20] VITALS: BP 123/82
== END 2017-09-10 15:00 | disposition home or self-care (01) ==
LOC: EDUNIT#
DX: S42.032A Displaced fracture of lateral end of left clavicle, initial encounter for closed fracture (principal); I25.2 Old myocardial infarction; Z79.82 Long term (current) use of aspirin; W18.39XA Other fall on same level, initial encounter
CPT/HCPCS: A4565

== ENCOUNTER 2017-09-20 15:53 | Emergency (ER) | payer MEDICAID ==
--- NOTE | 2017-09-20 16:51 | EDPHY ---
H & P Time Seen by Provider: 09/20/17 16:33 HPI/ROS: CHIEF COMPLAINT: Right leg swelling HISTORY OF PRESENT ILLNESS: Patient had right lower leg tib-fib fracture in March of 2017 and was seen in our emergency department on August 19 of this year for right leg pain and swelling. At that time she had x-rays for negative acute process and negative ultrasound for DVT. She is brought in tonight by her sister as patient says that the sister says her right leg has more swelling. There is also an old suture or stitch in the instep that is present. The patient continues to drink alcohol per sister, and is only intermittently cooperative during the exam, yelling and screaming at me on several occasions during the interview. REVIEW OF SYSTEMS: Eye: No visual symptoms ENT: No ENT symptoms Cardiac: No chest pain Pulmonary: Not short of breath Abdomen: No abdominal symptoms Musculoskeletal: HPI, did not sustain any recent injury fall or new trauma to the right leg Skin: Suture as above, bruising over the site of her left shoulder recent clavicle fracture Neuro: no headache Constitutional: no fever : no urinary symptoms A comprehensive 10 point review of systems is otherwise negative aside from elements mentioned in the history of present illness. PAST MEDICAL HISTORY: Alcoholism, degenerative disc disease, atrial fibrillation, osteoarthritis, pancreatitis, tib-fib fracture as above. History of DVT in the right leg and C diff. Recent left clavicle fracture Social history: Here with her sister who lives in [place], the patient lives alone, continues to drink alcohol General Appearance: Alert and conversant, cooperative. Eyes: No scleral icterus. ENT, Mouth: Normal mucous membranes. Respiratory: Normal respiratory effort, breath sounds equal, lungs are clear to auscultation. Cardiovascular: Regular rate and rhythm. Gastrointestinal: Abdomen is soft and non tender. Neurological: Alert, follows commands, intermittently screaming at me. Normal motor and sensory in both feet. Good perfusion in both ft as well with capillary refill present. Skin: Warm and dry, no rashes. Suture present in the right instep without surrounding erythema or tenderness or warmth or drainage or pus. Musculoskeletal: 3+ right leg peripheral edema without bony tenderness. Lesser edema of the left leg which isn't tender to palpation. Compartments on both legs are soft and I can move her ankles without significant pain. Psychiatric: Intermittently agitated and screaming and then crying and cooperative. Emergency Department course/MDM: Plan for suture removal, ultrasound of the right leg, is seen by case management in extensive consultation in the emergency department. 1800: Results discussed, stable for DC. Does not appear to have acute DVT or new fracture or cellulitis or compartment syndrome. Smoking Status: Never smoked Constitutional: Initial Vital Signs Temperature (C) 36.8 C 09/20/17 16:02 Heart Rate 80 09/20/17 16:02 Respiratory Rate 18 09/20/17 16:02 Blood Pressure 123/81 H 09/20/17 16:02 O2 Sat (%) 99 09/20/17 16:02 O2 Delivery Mode Room Air Allergies/Adverse Reactions: Sulfa (Sulfonamide Antibiotics) Allergy (Mild, Verified 09/20/17 15:57) Rash Home Medications: Medication Instructions Recorded Acetaminophen [Tylenol 325mg (*)] 650 mg PO Q4HRS PRN tab 05/08/17 Ferrous Sulfate [Slow Fe 140 MG 140 mg PO DAILY #30 tab.er 05/08/17 (*)] LORazepam [Ativan (*)] 0.5 mg PO Q4HRS PRN #10 tab 05/08/17 Pantoprazole Sodium [Protonix 40mg 40 mg PO BID #60 tab 05/08/17 (*)] Diltiazem Xr [Dilacor Xr] 240 mg PO DAILY 05/31/17 Gabapentin [Neurontin 100 MG (*)] 100 mg PO HS 05/31/17 Sucralfate [Carafate 1 GM (*)] 1 gm PO QID 05/31/17 Multivitamins [Multivitamin (*)] 1 each PO DAILY 06/25/17 Sertraline HCl [Zoloft 100mg (*)] 100 mg PO DAILY 06/25/17 Ondansetron Odt [Zofran Odt 4 mg 4 mg PO Q4PRN PRN #20 tab 07/01/17 (*)] Ascorbic Acid [Vitamin C 500 mg 500 mg PO BID 07/13/17 (*)] Levothyroxine Sodium 125 mcg PO DAILY 07/13/17 HYDROmorphone HCL [Dilaudid 2 mg 2 mg PO Q4H PRN 08/03/17 (*)] Methocarbamol [Robaxin 500 mg (*)] 1,000 mg PO HS 08/03/17 oxyCODONE IR [Oxycodone Ir (*)] 5 mg PO Q4H PRN 08/03/17 traZODone [traZODONE 50MG (*)] 50 mg PO HS PRN 08/03/17 Aspirin [Aspirin 81mg (*)] 81 mg PO DAILY tab.chew 08/08/17 Medical Decision Making - Diagnostics Imaging Results: Imaging Impressions Extremity Venous Study 09/20/17 16:46 Impression: No evidence of deep vein thrombosis. Findings discussed with STARR DIXON 09/20/2017 at 17:55. Imaging: Discussed imaging studies w/ pit crew support worker Radiologist Differential Diagnosis: Differential considered including but not limited to fracture, compartment syndrome, cellulitis, DVT, fasciitis, abscess, CHF. Departure - Departure Disposition: Home, Routine, Self-Care Clinical Impression: Leg edema, right Condition: Good Instructions: Leg Edema (ED) Referrals: Makenzie Briggs MD [Primary Care Provider] - As per Instructions
--- NOTE | 2017-09-20 18:19 | ASMTCMCOM ---
CM Note CM Note Notes: Patient presents to the ER accompanied by her sister Kaiden with c/o R LLE leg swelling. Patient is well known to this ER and chart records reviewed. See CM reports from 08/08/2017 for details re complex care, most recent discharge disposition, etc. Patient continues to live alone and despite HH referrals, has not been compliant/accessible for HH services. Patient explains that this is because she cannot hear her dooorbell (again, see CM notes as above). I have reminded patient and Kaiden of patient's membership with [employer] and provided patient with a pamphlet with details and contact information. I have LM with Corina Burnette (Medicaid prompt care rn) and faxed ER report to patient's PCP, Dr. Chester Banegas Date Signed: 09/20/2017 06:18 PM Electronically Signed By:Marlys Kapadia RN
[2017-09-20 18:40] VITALS: BP 119/80
== END 2017-09-20 18:20 | disposition home or self-care (01) ==
DX: R60.0 Localized edema (principal); Z79.82 Long term (current) use of aspirin

== ENCOUNTER 2017-10-21 20:05 | Emergency (ER) | payer MEDICAID ==
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
[2017-10-21 21:44] VITALS: BP 129/83
== END 2017-10-21 21:44 | disposition home or self-care (01) ==
LOC: EDUNIT#
DX: S42.022D Displaced fracture of shaft of left clavicle, subsequent encounter for fracture with routine healing (principal); Z79.82 Long term (current) use of aspirin; W01.198D Fall on same level from slipping, tripping and stumbling with subsequent striking against other object, subsequent encounter

== ENCOUNTER 2017-11-05 20:04 | Emergency (ER) | payer MEDICAID ==
--- NOTE | 2017-11-05 20:08 | EDPHY ---
H & P - Personal History Tetanus Vaccine Date: 2014 - Medical/Surgical History Hx Asthma: No Hx Chronic Respiratory Disease: No Hx Diabetes: No Hx Cardiac Disease: Yes Hx Renal Disease: No Hx Cirrhosis: No Hx Alcoholism: Yes Hx HIV/AIDS: No Hx Splenectomy or Spleen Trauma: No Other PMH: PMHx: Alcoholism, degenerative disc disease, osteoarthritis, scoliosis, heart murmur, a-fib, C difficile-Dec 2015, hx withdrawal, pancreatitis, R leg fx, RI. PSHx: tonsillectomy - Social History Smoking Status: Never smoked Time Seen by Provider: 11/05/17 20:07 HPI/ROS: Patient greeted on arrival. CHIEF COMPLAINT: Right knee injury, head injury post mechanical fall HISTORY OF PRESENT ILLNESS: 62-year-old female history of alcoholism, arrives by ambulance stating that she had been drinking alcohol and ran out, went out to buy more alcohol and as she was walking back into her house she tripped going up the stairs impacting her right knee, left elbow, left occipital head. No loss of consciousness. Admits to positive alcohol use. No prolonged periods of mobility on the ground. No midline C-spine pain. No peripheral paresthesia, weakness, numbness. PRIMARY CARE PROVIDER: REVIEW OF SYSTEMS: A ten point review of systems was performed and is negative with the exception of the items mentioned in the HPI PAST MEDICAL/SURGICAL HISTORY: no anticoagulant use, alcoholism SOCIAL HISTORY: positive alcohol use at time of incident PHYSICAL EXAM 1) GENERAL: Well-developed, well-nourished, alert and oriented. Appears to be in no acute distress. Answering questions appropriately. 2) HEAD: Normocephalic, left occipital 2.5 cm laceration with no hematoma no depression. 3) HEENT: Pupils equal, round, reactive to light bilaterally. Negative Horners. Nasopharynx, oropharynx, clear. No deformity or angulation of nose. No septal hematoma. No rhinorrhea. No oral trauma. Ears bilaterally with normal tympanic membranes. No hemotympanum. No fluid or blood in the external auditory canal. No raccoon eyes. No Musa sign. Teeth are normally aligned with no gross malocclusion, TMJ bilaterally nontender, facial bones nontender including the zygomatic arch, maxilla mandible. 4) NECK: No cervical collar is on. Posterior cervical spine is nontender, no stepoff, no effusion. Full range of motion which does not elicit any midline cervical spine pain, no posterior midline tenderness, no step-off. Cervical collar is on.Cervical collar is removed while holding inline traction and patient is unable to completely differentiate between true midline pain versus just lateral of midline pain.Cervical collar is replaced at that point.and patient has no complaints of midline cervical pain, no effusion noted, trachea midline, no JVD. 5) LUNGS: Clear to auscultation bilaterally, no wheezes, no rhonchi, no retractions. No obvious signs of trauma. No chest wall pain. No flaring, no grunting. Moving symmetrically. No crepitus. 6) HEART: [Regular rate and rhythm, 7) ABDOMEN: No guarding, no rebound, no focal tenderness, no peritoneal signs, no signs of trauma, no ecchymosis 8) MUSCULOSKELETAL: Left upper extremity: Abrasion to the lateral elbow with associated tenderness over the radial head. No deformity no angulation. Proximally distally nontender with soft compartments. No signs of infection. Distal neurovascular status normal intact. Right lower extremity: Anterior knee abrasion and pretibial ecchymosis with associated tenderness. Soft compartments. No gross instability. Proximally distally nontender. Hip nontender no shortening no malrotation. Distal DP PT pulses present and brisk. Otherwise, Moving all extremities, no focal areas of tenderness, no obvious trauma. 9) BACK: No midline vertebral tenderness, no fluctuance, no step-off, no obvious trauma, no visual or palpable abnormality. 10) SKIN: laceration to the occipital scalp DIFFERENTIAL DIAGNOSIS: Not necessarily in any particular order, my differential diagnosis includes, but is not limited to, concussion, skull fracture, intraparenchymal contusion, subarachnoid, subdural and epidural hematoma. The patient understands that this diagnosis is provisional and can never be 100% accurate. (Rivera Peña) Constitutional: Initial Vital Signs Temperature (C) 37.1 C 11/05/17 20:09 Heart Rate 93 11/05/17 20:09 Respiratory Rate 20 11/05/17 20:09 Blood Pressure 123/75 H 11/05/17 20:09 O2 Sat (%) 98 11/05/17 20:09 O2 Delivery Mode Room Air O2 (L/minute) 99 Allergies/Adverse Reactions: Sulfa (Sulfonamide Antibiotics) Allergy (Mild, Verified 10/21/17 20:12) Rash Home Medications: Medication Instructions Recorded Aspirin [Aspirin 81mg (*)] 81 mg PO DAILY tab.chew 08/08/17 Medical Decision Making - Diagnostics Imaging Results: Imaging Impressions Elbow X-Ray 11/05/17 20:11 Impression: Well-corticated (likely old) avulsion injuries associated with the medial and lateral humeral condyles, with bone demineralization. Head CT 11/05/17 20:11 Impression: There is a left posterior parietal scalp hematoma with no acute abnormality identified on this unenhanced CT evaluation. UNENHANCED CT SCAN OF THE CERVICAL SPINE: Technique: A multidetector unenhanced helical CT scan was obtained from the clivus caudally through the upper thoracic spine (at the T3-T4 disk interspace) , with images reformatted at 1.50 mm increments, and are reviewed in soft tissue , bone, and lung windows. Parasagittal and paracoronal reconstructed images are reviewed on the workstation. The DFOV is 16.9 cm. A dose reduction protocol was used. Findings: Again, there is slight reversal of the normal cervical lordosis centered at the C4-C6 levels, and the patient's head is also tilted to the right. These features reflect some underlying muscle spasm. There is mild C4-C5 , severe C5-C6, and mild C6-C7 degenerative disk space narrowing. There is trace degenerative anterolisthesis at C4-C5, unchanged from the previous exam. There is no acute fracture, or facet malalignment. The interspinous distances are normal. The craniocervical junction is normal. The predental space, and the atlantoaxial lateral mass alignment is normal. The base and the tip of the dens are normal. There is no paravertebral hematoma or epidural hematoma identified. The prevertebral soft tissues are normal. There is a tiny subpleural bleb seen in the anterior left apex, and there is a 3 mm subpleural nodule seen in the posterior left apex. The visualized superior mediastinal structures are unremarkable. The C1-C2 level is notable only for some minor degenerative change anteriorly with some narrowing of the predental space and osseous hypertrophy. There is no central canal stenosis. At the C2-C3 level, there is mild bilateral facet hypertrophy. There is no central canal or neural foraminal stenosis. At the C3-C4 level, there is moderate bilateral facet hypertrophy. There is mild left-sided uncovertebral degenerative spondylosis resulting in mild left neural foraminal narrowing. The central canal and right neural foramen are patent. At the C4-C5 level, there is the aforementioned trace anterolisthesis with mild degenerative disk space narrowing. There is moderate bilateral facet hypertrophy , and some uncovertebral degenerative spondylosis resulting in mild right neural foraminal stenosis. The left neural foramen and central canal remain patent. At the C5-C6 level, there is severe degenerative disk space narrowing. There is mild bilateral facet hypertrophy and uncovertebral degenerative spondylosis resulting in mild bilateral neural foraminal narrowing. The central canal remains patent. At the C6-C7 level, there is mild degenerative disk space narrowing. There is uncovertebral degenerative spondylosis and mild bilateral facet hypertrophy, resulting in mild bilateral neural foraminal narrowing. There is mild central canal stenosis secondary to a tiny dorsal disk osteophyte complex. At the C7-T1 level, there is no central canal or neural foraminal stenosis. Impression: Secondary features suggestive of underlying muscle spasm, with degenerative changes most pronounced at the C4-C5 and C5-C6 levels. There is no acute cervical osseous abnormality identified. If there is further clinical concern regarding the patient's symptoms, correlative MR imaging could be considered, if otherwise not contraindicated. Findings were discussed with Lorna Peña PA-C at 21:10, on 11/05/2017. Knee X-Ray 11/05/17 20:11 Impression: 1. Soraya-Stieda lesion. 2. Bone demineralization. 3. Incompletely-imaged ORIF hardware associated with the tibial diaphysis. Cervical Spine CT 11/05/17 20:13 Impression: There is a left posterior parietal scalp hematoma with no acute abnormality identified on this unenhanced CT evaluation. UNENHANCED CT SCAN OF THE CERVICAL SPINE: Technique: A multidetector unenhanced helical CT scan was obtained from the clivus caudally through the upper thoracic spine (at the T3-T4 disk interspace) , with images reformatted at 1.50 mm increments, and are reviewed in soft tissue , bone, and lung windows. Parasagittal and paracoronal reconstructed images are reviewed on the workstation. The DFOV is 16.9 cm. A dose reduction protocol was used. Findings: Again, there is slight reversal of the normal cervical lordosis centered at the C4-C6 levels, and the patient's head is also tilted to the right. These features reflect some underlying muscle spasm. There is mild C4-C5 , severe C5-C6, and mild C6-C7 degenerative disk space narrowing. There is trace degenerative anterolisthesis at C4-C5, unchanged from the previous exam. There is no acute fracture, or facet malalignment. The interspinous distances are normal. The craniocervical junction is normal. The predental space, and the atlantoaxial lateral mass alignment is normal. The base and the tip of the dens are normal. There is no paravertebral hematoma or epidural hematoma identified. The prevertebral soft tissues are normal. There is a tiny subpleural bleb seen in the anterior left apex, and there is a 3 mm subpleural nodule seen in the posterior left apex. The visualized superior mediastinal structures are unremarkable. The C1-C2 level is notable only for some minor degenerative change anteriorly with some narrowing of the predental space and osseous hypertrophy. There is no central canal stenosis. At the C2-C3 level, there is mild bilateral facet hypertrophy. There is no central canal or neural foraminal stenosis. At the C3-C4 level, there is moderate bilateral facet hypertrophy. There is mild left-sided uncovertebral degenerative spondylosis resulting in mild left neural foraminal narrowing. The central canal and right neural foramen are patent. At the C4-C5 level, there is the aforementioned trace anterolisthesis with mild degenerative disk space narrowing. There is moderate bilateral facet hypertrophy , and some uncovertebral degenerative spondylosis resulting in mild right neural foraminal stenosis. The left neural foramen and central canal remain patent. At the C5-C6 level, there is severe degenerative disk space narrowing. There is mild bilateral facet hypertrophy and uncovertebral degenerative spondylosis resulting in mild bilateral neural foraminal narrowing. The central canal remains patent. At the C6-C7 level, there is mild degenerative disk space narrowing. There is uncovertebral degenerative spondylosis and mild bilateral facet hypertrophy, resulting in mild bilateral neural foraminal narrowing. There is mild central canal stenosis secondary to a tiny dorsal disk osteophyte complex. At the C7-T1 level, there is no central canal or neural foraminal stenosis. Impression: Secondary features suggestive of underlying muscle spasm, with degenerative changes most pronounced at the C4-C5 and C5-C6 levels. There is no acute cervical osseous abnormality identified. If there is further clinical concern regarding the patient's symptoms, correlative MR imaging could be considered, if otherwise not contraindicated. Findings were discussed with Lorna Peña PA-C at 21:10, on 11/05/2017. Imaging Impressions Elbow X-Ray 11/05/17 20:11 Impression: Well-corticated (likely old) avulsion injuries associated with the medial and lateral humeral condyles, with bone demineralization. Head CT 11/05/17 20:11 Impression: There is a left posterior parietal scalp hematoma with no acute abnormality identified on this unenhanced CT evaluation. UNENHANCED CT SCAN OF THE CERVICAL SPINE: Technique: A multidetector unenhanced helical CT scan was obtained from the clivus caudally through the upper thoracic spine (at the T3-T4 disk interspace) , with images reformatted at 1.50 mm increments, and are reviewed in soft tissue , bone, and lung windows. Parasagittal and paracoronal reconstructed images are reviewed on the workstation. The DFOV is 16.9 cm. A dose reduction protocol was used. Findings: Again, there is slight reversal of the normal cervical lordosis centered at the C4-C6 levels, and the patient's head is also tilted to the right. These features reflect some underlying muscle spasm. There is mild C4-C5 , severe C5-C6, and mild C6-C7 degenerative disk space narrowing. There is trace degenerative anterolisthesis at C4-C5, unchanged from the previous exam. There is no acute fracture, or facet malalignment. The interspinous distances are normal. The craniocervical junction is normal. The predental space, and the atlantoaxial lateral mass alignment is normal. The base and the tip of the dens are normal. There is no paravertebral hematoma or epidural hematoma identified. The prevertebral soft tissues are normal. There is a tiny subpleural bleb seen in the anterior left apex, and there is a 3 mm subpleural nodule seen in the posterior left apex. The visualized superior mediastinal structures are unremarkable. The C1-C2 level is notable only for some minor degenerative change anteriorly with some narrowing of the predental space and osseous hypertrophy. There is no central canal stenosis. At the C2-C3 level, there is mild bilateral facet hypertrophy. There is no central canal or neural foraminal stenosis. At the C3-C4 level, there is moderate bilateral facet hypertrophy. There is mild left-sided uncovertebral degenerative spondylosis resulting in mild left neural foraminal narrowing. The central canal and right neural foramen are patent. At the C4-C5 level, there is the aforementioned trace anterolisthesis with mild degenerative disk space narrowing. There is moderate bilateral facet hypertrophy , and some uncovertebral degenerative spondylosis resulting in mild right neural foraminal stenosis. The left neural foramen and central canal remain patent. At the C5-C6 level, there is severe degenerative disk space narrowing. There is mild bilateral facet hypertrophy and uncovertebral degenerative spondylosis resulting in mild bilateral neural foraminal narrowing. The central canal remains patent. At the C6-C7 level, there is mild degenerative disk space narrowing. There is uncovertebral degenerative spondylosis and mild bilateral facet hypertrophy, resulting in mild bilateral neural foraminal narrowing. There is mild central canal stenosis secondary to a tiny dorsal disk osteophyte complex. At the C7-T1 level, there is no central canal or neural foraminal stenosis. Impression: Secondary features suggestive of underlying muscle spasm, with degenerative changes most pronounced at the C4-C5 and C5-C6 levels. There is no acute cervical osseous abnormality identified. If there is further clinical concern regarding the patient's symptoms, correlative MR imaging could be considered, if otherwise not contraindicated. Findings were discussed with Lorna Peña PA-C at 21:10, on 11/05/2017. Knee X-Ray 11/05/17 20:11 Impression: 1. Soraya-Stieda lesion. 2. Bone demineralization. 3. Incompletely-imaged ORIF hardware associated with the tibial diaphysis. Cervical Spine CT 11/05/17 20:13 Impression: There is a left posterior parietal scalp hematoma with no acute abnormality identified on this unenhanced CT evaluation. UNENHANCED CT SCAN OF THE CERVICAL SPINE: Technique: A multidetector unenhanced helical CT scan was obtained from the clivus caudally through the upper thoracic spine (at the T3-T4 disk interspace) , with images reformatted at 1.50 mm increments, and are reviewed in soft tissue , bone, and lung windows. Parasagittal and paracoronal reconstructed images are reviewed on the workstation. The DFOV is 16.9 cm. A dose reduction protocol was used. Findings: Again, there is slight reversal of the normal cervical lordosis centered at the C4-C6 levels, and the patient's head is also tilted to the right. These features reflect some underlying muscle spasm. There is mild C4-C5 , severe C5-C6, and mild C6-C7 degenerative disk space narrowing. There is trace degenerative anterolisthesis at C4-C5, unchanged from the previous exam. There is no acute fracture, or facet malalignment. The interspinous distances are normal. The craniocervical junction is normal. The predental space, and the atlantoaxial lateral mass alignment is normal. The base and the tip of the dens are normal. There is no paravertebral hematoma or epidural hematoma identified. The prevertebral soft tissues are normal. There is a tiny subpleural bleb seen in the anterior left apex, and there is a 3 mm subpleural nodule seen in the posterior left apex. The visualized superior mediastinal structures are unremarkable. The C1-C2 level is notable only for some minor degenerative change anteriorly with some narrowing of the predental space and osseous hypertrophy. There is no central canal stenosis. At the C2-C3 level, there is mild bilateral facet hypertrophy. There is no central canal or neural foraminal stenosis. At the C3-C4 level, there is moderate bilateral facet hypertrophy. There is mild left-sided uncovertebral degenerative spondylosis resulting in mild left neural foraminal narrowing. The central canal and right neural foramen are patent. At the C4-C5 level, there is the aforementioned trace anterolisthesis with mild degenerative disk space narrowing. There is moderate bilateral facet hypertrophy , and some uncovertebral degenerative spondylosis resulting in mild right neural foraminal stenosis. The left neural foramen and central canal remain patent. At the C5-C6 level, there is severe degenerative disk space narrowing. There is mild bilateral facet hypertrophy and uncovertebral degenerative spondylosis resulting in mild bilateral neural foraminal narrowing. The central canal remains patent. At the C6-C7 level, there is mild degenerative disk space narrowing. There is uncovertebral degenerative spondylosis and mild bilateral facet hypertrophy, resulting in mild bilateral neural foraminal narrowing. There is mild central canal stenosis secondary to a tiny dorsal disk osteophyte complex. At the C7-T1 level, there is no central canal or neural foraminal stenosis. Impression: Secondary features suggestive of underlying muscle spasm, with degenerative changes most pronounced at the C4-C5 and C5-C6 levels. There is no acute cervical osseous abnormality identified. If there is further clinical concern regarding the patient's symptoms, correlative MR imaging could be considered, if otherwise not contraindicated. Findings were discussed with Lorna Peña PA-C at 21:10, on 11/05/2017. Images reviewed by myself (Rivera Peña) Procedures: Procedure: Laceration repair. I explained the indications, risks and benefits for both laceration repair and anesthetic administration. Verbal consent was obtained from the patient. The laceration on the left occipital scalp was anesthetized using 0.5% bupivicaine with epinephrine. After anesthetic administered the patient was observed for a period of time and had no apparent adverse effects. The wound was cleaned, prepped, draped in normal sterile fashion and explored to its base. No foreign body seen, no foreign bodies palpated. There were no deep structures involved. No galea defects identified The wound was repaired with 4 mason . The wound repair was simple. The procedure was performed by myself. Patient has been informed that scarring will occur, although efforts have been made to minimize this. (Rivera Peña) ED Course/Re-evaluation: I did not see this patient while she was in the emergency department. However her care was discussed with the PA while the patient was in the department. I agree with treatment plan and management (Romel Trejo) 8:16 p.m.: Will obtain imaging studies including his CT imaging, x-ray of the left elbow and right knee. Tetanus is up-to-date. She is currently answering questions appropriately. I saw this patient independently based on established practice protocols. Care of patient under supervision of secondary supervising physician Dr Trejo with whom I discussed case. 9:21 p.m.: Re-evaluation she is answering questions appropriately smiling telling jokes appears well. Discussed her negative imaging results. She would like to be discharged. Laceration closed. Wounds have been dressed. She feels comfortable being discharged. Usual and customary orthopedic, wound and head injury precautions and instructions provided. (Rivera Peña) - Data Points Medications Given: Discontinued Medications Tetracaine/Epinephrine/Lidocaine (Let Gel Topical) 1 ea TP EDNOW ONE Stop: 11/05/17 20:35 Last Admin: 11/05/17 21:00 Dose: 1 ea Departure - Departure Disposition: Home, Routine, Self-Care Clinical Impression: Abrasion, right knee, initial encounter, Alcohol abuse Head injury due to trauma Qualifiers: Encounter type: initial encounter Qualified Code(s): S09.90XA - Unspecified injury of head, initial encounter Abrasion of left elbow Qualifiers: Encounter type: initial encounter Qualified Code(s): S50.312A - Abrasion of left elbow, initial encounter Condition: Good Instructions: Laceration (ED), Head Injury (ED), Abuse of Alcohol (ED), Abrasion (ED) Additional Instructions: ALTHOUGH THERE IS NO EVIDENCE OF SERIOUS HEAD INJURY AT THIS TIME, DELAYED SIGNS CAN APPEAR 24 TO 48 HOURS AFTER INJURY. PLEASE RETURN TO THE EMERGENCY DEPARTMENT (ED) IMMEDIATELY IF YOU HAVE INCREASED HEADACHE, PERSISTENT HEADACHE , VOMITING, WEAKNESS, CONFUSION OR VISUAL PROBLEMS. WE RECOMMEND THAT YOU DO NOT RESUME CONTACT SPORTS OR ACTIVITIES THAT TAKE COORDINATION OR BALANCE SUCH SKIING OR RIDING A BICYCLE UNTIL CLEARED TO DO SO BY YOUR DOCTOR OR BY A NEUROLOGIST. Return to the ER in 7 days for staple removal Referrals: Return, to the ER in 7 days for staple removal [Other] - As per Instructions
[2017-11-05] MEDS ORDERED: LET GEL TOPICAL 1 EA SYR TP ONE ×2 (20:32→20:34)
[2017-11-05 21:33] VITALS: BP 128/70
== END 2017-11-05 21:39 | disposition home or self-care (01) ==
LOC: EDUNIT# → EDBD
DX: S01.01XA Laceration without foreign body of scalp, initial encounter (principal); S80.211A Abrasion, right knee, initial encounter; S50.312A Abrasion of left elbow, initial encounter; F10.10 Alcohol abuse, uncomplicated; W10.9XXA Fall (on) (from) unspecified stairs and steps, initial encounter; Y92.009 Unspecified place in unspecified non-institutional (private) residence as the place of occurrence of the external cause; Y99.8 Other external cause status; Y93.01 Activity, walking, marching and hiking

== ENCOUNTER 2017-11-27 08:19 | Emergency (ER) | payer MEDICAID ==
[2017-11-27] MEDS ORDERED: LORazepam 2 MG/ML INJ IVP ONE ×2 (08:44→10:22)
[2017-11-27] MEDS ORDERED: NS 1,000 ML IV ONE (08:44)
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
--- NOTE | 2017-11-27 08:58 | CPEKG ---
Heart Rate: 93 RR Interval: 645 P-R Interval: 200 QRSD Interval: 70 QT Interval: 400 QTC Interval: 498 P Stark: 13 QRS Stark: 6 T Wave Stark: 25 EKG Severity - BORDERLINE ECG - EKG Impression: SINUS RHYTHM EKG Impression: LOW VOLTAGE IN FRONTAL LEADS EKG Impression: BORDERLINE PROLONGED QT INTERVAL Electronically Signed By: Deandre Dewey 27-Nov-2017 09:21:30
[2017-11-27 11:01] VITALS: BP 133/78
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
== END 2017-11-27 11:26 | disposition home or self-care (01) ==
DX: R11.2 Nausea with vomiting, unspecified (principal); F10.230 Alcohol dependence with withdrawal, uncomplicated; E86.9 Volume depletion, unspecified
CPT/HCPCS: 96374; J2060

== ENCOUNTER 2017-12-22 05:52 | Emergency (ER) | payer MEDICAID ==
[2017-12-22 06:23] LABS: PLATELET COUNT 112 10^3/uL (150-400)
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
[2017-12-22] MEDS ORDERED: ONDANSETRON 4 MG/2 ML VIAL ONE (06:53)
[2017-12-22] MEDS ORDERED: ONDANSETRON 4 MG/2 ML VIAL IVP ONE (06:54)
[2017-12-22 07:14] VITALS: BP 142/87
== END 2017-12-22 07:26 | disposition home or self-care (01) ==
DX: K74.60 Unspecified cirrhosis of liver (principal); F10.10 Alcohol abuse, uncomplicated; R26.89 Other abnormalities of gait and mobility; R41.3 Other amnesia
CPT/HCPCS: 96374; G0480; J2405

== ENCOUNTER 2017-12-22 11:02 | Emergency (ER) | payer MEDICAID ==
[2017-12-22] MEDS ORDERED: ONDANSETRON 4 MG/2 ML VIAL ONE (11:22)
[2017-12-22] MEDS ORDERED: ONDANSETRON DISINTEGRATING 4 MG TAB ONE (11:29)
[2017-12-22] MEDS ORDERED: ONDANSETRON DISINTEGRATING 4 MG TAB PO ONE (11:30)
--- NOTE | 2017-12-22 12:05 | EDPHY ---
H & P Stated Complaint: N/V abd pain continuing, here this morning for same Time Seen by Provider: 12/22/17 11:43 HPI/ROS: CHIEF COMPLAINT: Nausea and vomiting HISTORY OF PRESENT ILLNESS: The patient presents to the ED with nausea and vomiting. She has a history of chronic alcoholism and numerous emergency department visits. She was seen in the ED earlier today with similar symptoms. She was discharged home uneventfully. She returns today complaining of ongoing vomiting. She denies any history of fall or trauma. She denies melena or hematemesis. Patient does continue to use alcohol. REVIEW OF SYSTEMS: A comprehensive 10 point review of systems is otherwise negative aside from elements mentioned in the history of present illness. Source: Patient Exam Limitations: No limitations - Personal History Current Tetanus/Diphtheria Vaccine: Yes Current Tetanus Diphtheria and Acellular Pertussis (TDAP): Yes Tetanus Vaccine Date: 2014 - Medical/Surgical History Hx Asthma: No Hx Chronic Respiratory Disease: No Hx Diabetes: No Hx Cardiac Disease: Yes Hx Renal Disease: No Hx Cirrhosis: No Hx Alcoholism: Yes Hx HIV/AIDS: No Hx Splenectomy or Spleen Trauma: No Other PMH: PMHx: Alcoholism, degenerative disc disease, osteoarthritis, scoliosis, heart murmur, a-fib, C difficile-Dec 2015, hx withdrawal, pancreatitis, R leg fx, CT. PSHx: tonsillectomy - Social History Smoking Status: Never smoked - Physical Exam Exam: General Appearance: Alert, no distress Eyes: Pupils equal and round no pallor or injection ENT, Mouth: Mucous membranes moist Respiratory: There are no retractions, lungs are clear to auscultation Cardiovascular: Regular rate and rhythm Gastrointestinal: Minimal epigastric tenderness Neurological: 5/5 strength all 4 extremities Skin: Warm and dry, no rashes Musculoskeletal: Neck is supple nontender Extremities: symmetrical, full range of motion Constitutional: Initial Vital Signs Temperature (C) 37.6 C 12/22/17 11:07 Heart Rate 97 12/22/17 11:07 Respiratory Rate 18 12/22/17 11:07 Blood Pressure 127/87 H 12/22/17 11:07 O2 Sat (%) 96 12/22/17 11:07 O2 Delivery Mode Room Air Allergies/Adverse Reactions: Sulfa (Sulfonamide Antibiotics) Allergy (Mild, Verified 12/22/17 06:14) Rash Home Medications: Medication Instructions Recorded NK [No Known Home Meds] 12/10/17 Medical Decision Making ED Course/Re-evaluation: I reviewed the patient's workup from earlier today. The patient's laboratory studies are at baseline with a chronic transaminitis. The patient's abdominal examination demonstrates only minimal tenderness. Her vital signs are stable. The patient was given a Zofran ODT in the emergency department. I do not feel that abdominal imaging is indicated at this point time. The patient has no acute traumatic complaints. Patient was re-evaluated at 1:15 p.m.. She has had no further vomiting. Her abdominal examination remains benign. She will be discharged from the emergency department with a Zofran prepack. - Data Points Medications Given: Discontinued Medications Ondansetron HCl (Zofran Odt) 4 mg PO EDNOW ONE Stop: 12/22/17 11:31 Last Admin: 12/22/17 11:32 Dose: 4 mg Departure - Departure Disposition: Home, Routine, Self-Care Clinical Impression: Alcohol abuse, Vomiting Condition: Good Instructions: Acute Nausea and Vomiting (ED) Additional Instructions: 1. [facility] happy to help you with your alcohol dependence. 2. Zofran as needed for nausea and vomiting Referrals: [facility] [Outside] - As per Instructions
[2017-12-22] MEDS ORDERED: ONDANSETRON 4MG PREPACK#2 BTL TAKEHOME ONE (13:17)
[2017-12-22 13:34] VITALS: BP 152/99
== END 2017-12-22 13:34 | disposition home or self-care (01) ==
LOC: EDUNIT#
DX: R11.2 Nausea with vomiting, unspecified (principal); F10.10 Alcohol abuse, uncomplicated
CPT/HCPCS: J2405

== ENCOUNTER 2017-12-23 06:05 | Inpatient (IN) | payer MEDICAID ==
--- NOTE | 2017-12-23 06:15 | EDPHY ---
H & P Time Seen by Provider: 12/23/17 06:11 HPI/ROS: Chief Complaint: Nausea vomiting, memory loss HPI: 62-year-old woman who is well known to this emergency department for history of chronic alcohol abuse. She is coming in this morning complaining of uncontrolled nausea vomiting since 8 o'clock last night. Patient states she is not able to keep anything down. She also is complaining of having worsening memory loss and confusion. She was seen in the emergency department by me yesterday but does not recall being here. She lives alone in a 3 bedroom house. She denies alcohol use for the last few days. I noted yesterday that she had increasing liver function tests and bilirubin. At the time of discharge yesterday she was alert and answering questions and maintain her memory. Today of noticed a large hematoma and abrasion on her right forehead with some ecchymoses on her right eye. Patient denies any falls or recent injuries. ROS: 10 point Review of Systems is negative except as noted in the HPI. PMH: Chronic alcoholism, cirrhosis Social History: No smoking, daily heavy alcohol, no recreational drug use Family History: non-contributory Physical Exam: Gen: Awake, Alert, No Distress HEENT: Hematoma with abrasion right forehead, moderate ecchymosis around her right eye Nose: no rhinorrhea Eyes: PERRLA, EOMI Mouth: Moist mucosa Neck: Supple, no JVD Chest: nontender, lungs clear to auscultation Heart: S1, S2 normal, no murmur Abd: Soft, mildly tender, nonfocal, no guarding Back: no CVA tenderness, no midline tenderness Ext: no edema, non-tender Skin: no rash Neuro: CN II-XII intact, Sensation grossly intact, Strength 5/5 in bilateral upper and lower extremities - Personal History Tetanus Vaccine Date: 2014 - Medical/Surgical History Hx Asthma: No Hx Chronic Respiratory Disease: No Hx Diabetes: No Hx Cardiac Disease: Yes Hx Renal Disease: No Hx Cirrhosis: No Hx Alcoholism: Yes Hx HIV/AIDS: No Hx Splenectomy or Spleen Trauma: No Other PMH: PMHx: Alcoholism, degenerative disc disease, osteoarthritis, scoliosis, heart murmur, a-fib, C difficile-Dec 2015, hx withdrawal, pancreatitis, R leg fx, [place]. PSHx: tonsillectomy - Social History Smoking Status: Never smoked Constitutional: Initial Vital Signs Temperature (C) 36.4 C 12/23/17 06:05 Heart Rate 92 12/23/17 06:05 Respiratory Rate 16 12/23/17 06:05 Blood Pressure 110/81 H 12/23/17 06:05 O2 Sat (%) 100 12/23/17 06:05 O2 Delivery Mode Room Air Allergies/Adverse Reactions: Sulfa (Sulfonamide Antibiotics) Allergy (Mild, Verified 12/22/17 06:14) Rash Home Medications: Medication Instructions Recorded NK [No Known Home Meds] 12/10/17 Medical Decision Making Procedures: Procedure: Ultrasound guidance for IV placement. Indication: The nurse requested that I place an intravenous catheter because of technical difficulties with this procedure on this patient. Procedure in details: Using the linear probe covered in a sterile sheath, a short axis of the basilic vein was obtained. This vein was completely compressible and was identified as separate from the adjacent noncompressible arterial structure. Under real-time guidance, the intravenous needle was observed to tent the vein and then to puncture it. Insertion of intravenous catheter: I prepped the patient's skin with chlorhexidine. I placed an 18 gauge intravenous catheter in the visualized vein. ED Course/Re-evaluation: 62-year-old female chronic alcoholism with worsening liver function, vomiting and dehydration. She will require admission the hospital. She was very difficult IV placement and I performed wonder ultrasound guidance. I have discussed with Dr. Pisano, hospitalist. He will admit to his service for further evaluation and care. - Data Points Laboratory Results: 12/23/17 12/23/17 12/23/17 07:00 07:00 07:00 WBC Pending RBC Pending Hgb Pending Hct Pending MCV Pending MCH Pending MCHC Pending RDW Pending Plt Count Pending MPV Pending Neut % (Auto) Pending Lymph % (Auto) Pending Liberty % (Auto) Pending Eos % (Auto) Pending Baso % (Auto) Pending Nucleat RBC Rel Count Pending Absolute Neuts (auto) Pending Absolute Lymphs (auto) Pending Absolute Monos (auto) Pending Absolute Eos (auto) Pending Absolute Basos (auto) Pending Absolute Nucleated RBC Pending Immature Gran % Pending Immature Gran # Pending PT Pending INR Pending APTT Pending Sodium Pending Potassium Pending Chloride Pending Carbon Dioxide Pending Anion Gap Pending BUN Pending Creatinine Pending Estimated GFR Pending Glucose Pending Calcium Pending Total Bilirubin Pending AST Pending ALT Pending Alkaline Phosphatase Pending Ammonia Total Protein Pending Albumin Pending Ethyl Alcohol Pending 12/23/17 06:45 WBC RBC Hgb Hct MCV MCH MCHC RDW Plt Count MPV Neut % (Auto) Lymph % (Auto) Liberty % (Auto) Eos % (Auto) Baso % (Auto) Nucleat RBC Rel Count Absolute Neuts (auto) Absolute Lymphs (auto) Absolute Monos (auto) Absolute Eos (auto) Absolute Basos (auto) Absolute Nucleated RBC Immature Gran % Immature Gran # PT INR APTT Sodium Potassium Chloride Carbon Dioxide Anion Gap BUN Creatinine Estimated GFR Glucose Calcium Total Bilirubin AST ALT Alkaline Phosphatase Ammonia 12.0 uMOL/L uMOL/L (9.0-30.0) Total Protein Albumin Ethyl Alcohol Departure - Departure Disposition: [facility] Inpatient Acute Clinical Impression: Nausea & vomiting, Dehydration, Altered mental status Condition: Fair Referrals: NONE *PRIMARY CARE P,. [Primary Care Provider] - As per Instructions
[2017-12-23] MEDS ORDERED: ONDANSETRON DISINTEGRATING 4 MG TAB PO PRN (07:16)
[2017-12-23] MEDS ORDERED: FLUMAZENIL 0.5 MG/5 ML MDV IVP PRN (07:18)
--- NOTE | 2017-12-23 07:24 | PDGENHP ---
History and Physical - Chief Complaint Nausea - History of Present Illness 62 yo F w/ hx of ETOH cirrhosis, CVA, failure to thrive, and AF presents with nausea and vomiting. The patient tells me she has had nausea and vomiting for about 1 day. She suffered a fall yesterday and was seen in the ED for this and then discharged home. She returns today because of nausea, vomiting, and abdominal pain. She denies fevers. She also tells me her abdomen has felt distended for about 1 week. Her memory is quite poor currently; she cannot remember coming to the ED yesterday. She knows where she is but cannot tell me the date. She cannot tell me if she has been taking prescribed medications. She tells me her last drink was 2 days ago and she usually drinks 1/2-1 pint of vodka daily. Review of records notable for CVA in July of 2017. She has hx of AF but cannot be anticoagulated due to extremely high fall risk. Review of outpatient records shows contacts with APS about her inability to care for herself but not much have come of these communications as far as I can tell. Case discussed with ED physician Dr. Messer. Previous records reviewed in EMR. History Information - Allergies/Home Medication List Allergies/Adverse Reactions: Sulfa (Sulfonamide Antibiotics) Allergy (Mild, Verified 12/22/17 06:14) Rash Home Medications: NK [No Known Home Meds] 12/10/17 [Last Taken Unknown] I have personally reviewed and updated: family history, medical history - Past Medical History Additional medical history: atrial fibrillation not a candidate for anticoagulation secondary to fall risk and history of coagulopathy and thrombocytopenia. etoh dependence with history of pancreatitis, withdrawal seizures. C diff 12/2015. anemia, coagulopathy. degenerative disk disease. scoliosis. chronic back pain. hypothyroidism. depression. History DVT and PE. History of cardiac arrest secondary to aspiration - Surgical History Additional surgical history: ORIF tib-fib 03/26/17. T/A - Family History Additional family history: father age 42 due to accident. mother age 50s due to esophageal ca - Social History Smoking Status: Never smoked Alcohol Use: Heavy Additional social history: Patient lives alone. COR - FULL. desires Renay Carbone (sister) to act as proxy if needed. Review of Systems Review of Systems: ROS: 10pt was reviewed & negative except for what was stated in HPI & below Physical Exam Physical Exam: Temp Pulse Resp BP Pulse Ox 36.4 C 92 16 110/81 H 100 12/23/17 06:05 12/23/17 06:05 12/23/17 06:05 12/23/17 06:05 12/23/17 06:05 Constitutional: not in pain, chronically ill appearing Eyes: PERRL, icteric sclera Ears, Nose, Mouth, Throat: moist mucous membranes, no oral mucosal ulcers Cardiovascular: regular rate and rhythym, systolic murmur Respiratory: no respiratory distress, clear to auscultation Gastrointestinal: normoactive bowel sounds, distension, No tenderness, No guarding, No rebound Skin: warm, normal color Musculoskeletal: full muscle strength, no muscle tenderness Neurologic: other (A&Ox2, no asterixis, mild tongue fasciculations, mild UE fine tremor), No weakness Psychiatric: interacting appropriately, poor memory Lab Data & Imaging Review 12/23/17 07:00 12/23/17 07:00 Sodium 132 mEq/L (135-145) L 12/23/17 07:00 Potassium 3.1 mEq/L (3.3-5.0) L 12/23/17 07:00 Chloride 94 mEq/L (97-110) L 12/23/17 07:00 Carbon Dioxide 25 mEq/l (22-31) 12/23/17 07:00 Anion Gap 13 mEq/L (8-16) 12/23/17 07:00 BUN 7 mg/dL (7-23) 12/23/17 07:00 Creatinine 0.7 mg/dL (0.6-1.0) 12/23/17 07:00 Estimated GFR > 60 12/23/17 07:00 Glucose 100 mg/dL (70-100) 12/23/17 07:00 Calcium 8.9 mg/dL (8.5-10.4) 12/23/17 07:00 Total Bilirubin 8.9 mg/dL (0.1-1.4) H 12/23/17 07:00 AST 162 IU/L (14-46) H 12/23/17 07:00 ALT 71 IU/L (9-52) H 12/23/17 07:00 Alkaline Phosphatase 245 IU/L (38-126) H 12/23/17 07:00 Ammonia 12.0 uMOL/L (9.0-30.0) 12/23/17 06:45 Total Protein 6.9 g/dL (6.3-8.2) 12/23/17 07:00 Albumin 4.0 g/dL (3.5-5.0) 12/23/17 07:00 Ethyl Alcohol < 10 mg/dL (0-10) 12/23/17 07:00 Assessment & Plan Assessment: 62 yo F w/ hx of ETOH cirrhosis, CVA, AF, and failure to thrive presents with altered mental status, nausea, and vomiting likely due to worsening liver function. Plan: 1. Decompensated alcoholic cirrhosis - Bilirubin rising and now with altered mental status as well. Cannot calculate MELD right now without PT/INR available. No clear trigger for decompensation at this time aside from continued drinking. - RUQ U/S with dopplers ordered - Will also obtain paracentesis to rule out SBP - Monitor CMP - Lactulose TID for possible HE, titrate to achieve 2-3 BMs - PT/INR, CBC pending - Daily weights, monitor I/Os, cardiac diet 2. Acute metabolic encephalopathy - Most likely related to above with possible contribution from early alcohol withdrawal as well. - CTH ordered to rule out ICH noting recent falls - Acute management as above - CIWA protocol ordered 3. ETOH use disorder - Drinks 1/2-1 pint of vodka daily and has prior history of severe withdrawal. Her last drink was 2 days ago(BAL 0 on admission) and she is displaying signs of mild/early withdrawal with subtle tremor and tongue fasciculations. - CIWA protocol ordered - Daily MVI/folate/thiamine 4. CVA - Infarct in L mesial temporal and occipital lobe in July of 2017. She was prescribed an aspirin for this with unclear compliance at this point. - CTH as above 5. AF - Cannot be anticoagulated due to high fall risk. - Check ECG 6. Failure to thrive - Patient has visited [facility] ED 30+ times over the last year. She lives alone as is clearly unsafe to do so. APS has been contacted previously per outpatient notes but nothing has come of these communications. - CM consult placed Diet - Cardiac Code - Full Ppx - SCDs Dispo - Admit under inpatient status
[2017-12-23] MEDS ORDERED: ALTEPLASE 2 MG VIAL IVP PRN (07:40)
[2017-12-23] MEDS: ONDANSETRON 4 MG/2 ML VIAL IVP PRN ×2 (07:42→15:29)
[2017-12-23] MEDS: LORazepam 2 MG/ML INJ IVP PRN ×3 (07:43→22:43)
[2017-12-23 08:03] LABS: PLATELET COUNT 89 10^3/uL (150-400)
[2017-12-23] MEDS ORDERED: LACTULOSE 20 GM/30 ML UDCUP PO SCH (09:00)
[2017-12-23] MEDS: MULTIVITAMINS 1 EACH TAB PO SCH (12:03)
[2017-12-23] MEDS: FOLIC ACID 1 MG TAB PO SCH (12:03)
[2017-12-23] MEDS ORDERED: PROTOCOL POTASSIUM 1 DOSE MISC PRN (14:04)
[2017-12-23] MEDS: ACETAMINOPHEN 325 MG TAB PO PRN (15:28)
[2017-12-23 15:33] LABS: INR 1.33 (0.83-1.16); PROTIME(PATIENT) 16.7 SEC (12.0-15.0)
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
[2017-12-23] MEDS ORDERED: POTASSIUM CL 10 MEQ TAB PO ONE (16:58)
--- NOTE | 2017-12-23 18:29 | PDMN ---
Medical Necessity Medical necessity: Pt meets IP criteria per & MAGDIEL [id number]; est los >2 mn for eval/tx of decompensated alcoholic cirrhosis w/elevated bilirubin, metabolic encephalopathy & early signs of alcohol withdrawal; requiring further workup/ monitoring & CIWA protocol; hx falls, ETOH cirrhosis, severe alcohol withdrawal , CVA, failure to thrive, AFIB, DVT/PE, cardiac arrest secondary to aspiration; per H&P & order 12/23/17
[2017-12-24 05:31] LABS: INR 1.4 (0.83-1.16); PROTIME(PATIENT) 17.3 SEC (12.0-15.0)
[2017-12-24 05:55] LABS: PLATELET COUNT 56 10^3/uL (150-400)
[2017-12-24] MEDS: LEVOTHYROXINE 125 MCG TAB PO SCH (06:09)
--- NOTE | 2017-12-24 09:04 | ASMTLACE ---
JAYSON Acuity / Level of Answers: Yes Care: Did the patient have an inpatient admission? Comorbidities - select Answers: Cerebrovascular disease all that apply (CVA, TIA, aneurysms, vasc ular dementia) Opioid dependence / Chronic pain Previous myocardial infarction Other Notes: AFib; Degenerative disc disease # of Emergency department Answers: 12+ visits in the last 6 months Social determinants Answers: History of substance abuse (ETOH, street drugs, prescription drugs, etc.) Mental health diagnosis (anxiety, depression, pers onality disorders, etc.) Score: 22 Date Signed: 12/24/2017 09:03 AM Electronically Signed By:Sherri Bolanos
[2017-12-24] MEDS: MULTIVITAMINS 1 EACH TAB PO SCH (09:11)
[2017-12-24] MEDS: ASPIRIN EC 81 MG TAB PO SCH (09:11)
[2017-12-24] MEDS: FOLIC ACID 1 MG TAB PO SCH (09:11)
--- NOTE | 2017-12-24 11:29 | HOSPPROG ---
Hospitalist Progress Note Assessment/Plan: * Etoh cirrhosis - still drinking -follow LFT -no ascites to tap -ammonia level normal * Portal vein thrombosis -no indication for anti-coagulation with cirrhosis * Possible cholecystitis -currently patient denies RUQ pain * Metabolic/toxic encephalopathy * Etoh withdrawal -CIWA * Recent CVA - asa * Afib -no anticoagulation due to high fall risk * FTT - 30+ ER visits in the last year. APS notified but unclear result -safety of independent living in question Subjective: No complaints, anxious to eat Objective: Vital Signs Temp Pulse Resp BP Pulse Ox 36.6 C 83 14 91/64 L 98 12/24/17 07:36 12/24/17 07:36 12/24/17 07:36 12/24/17 07:36 12/24/17 07:36 Laboratory Results 12/24/17 04:30 12/24/17 04:30 12/23/17 12/24/17 12/25/17 05:59 05:59 05:59 Intake Total 950 Output Total 1500 Balance -550 PT 17.3 SEC (12.0-15.0) H 12/24/17 04:30 INR 1.40 (0.83-1.16) H 12/24/17 04:30 - Physical Exam Constitutional: no apparent distress, appears nourished, not in pain Eyes: icteric sclera Cardiovascular: regular rate and rhythym, no murmur, rub, or gallop Respiratory: no respiratory distress, no rales or rhonchi, clear to auscultation Gastrointestinal: normoactive bowel sounds, soft, non-tender abdomen, no palpable masses Skin: no rashes or abrasions, no fluctuance, no induration, other (jaundice) Neurologic: AAOx3, sensation intact bilaterally Psychiatric: interacting appropriately, not anxious, not encephalopathic, thought process linear, flat affect ICD10 Worksheet Patient Problems: Problems Problem Status Onset Altered mental status Acute Dehydration Acute Nausea & vomiting Acute Abdominal pain Acute Alcohol abuse Acute Alcohol withdrawal Acute Ankle fracture Acute Atrial fibrillation Acute Atrial fibrillation with RVR Acute C. difficile diarrhea Acute 09/23/16 Cardiac arrest Acute GI bleed Acute Homonymous hemianopsia Acute Hypomagnesemia Acute Nausea and vomiting in adult Acute UTI (urinary tract infection) Acute
[2017-12-24] MEDS ORDERED: POTASSIUM CL 10 MEQ TAB PO ONE ×2 (13:26→19:49)
[2017-12-24] MEDS: ACETAMINOPHEN 325 MG TAB PO PRN (14:15)
[2017-12-24] MEDS: PETROLAT,WHT/MIN OIL/SOD CHL 3.5 GM OPHT.OINT EACHEYE PRN (14:16)
[2017-12-24] MEDS: LORazepam 2 MG/ML INJ IVP PRN (14:16)
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
[2017-12-25 05:06] LABS: PLATELET COUNT 58 10^3/uL (150-400)
[2017-12-25] MEDS: PETROLAT,WHT/MIN OIL/SOD CHL 3.5 GM OPHT.OINT EACHEYE PRN (05:19)
[2017-12-25] MEDS: LEVOTHYROXINE 125 MCG TAB PO SCH (05:20)
[2017-12-25] MEDS: MULTIVITAMINS 1 EACH TAB PO SCH (09:00)
[2017-12-25] MEDS: FOLIC ACID 1 MG TAB PO SCH (09:00)
[2017-12-25] MEDS: ASPIRIN EC 81 MG TAB PO SCH (11:06)
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
--- NOTE | 2017-12-25 18:43 | HOSPPROG ---
Hospitalist Progress Note Assessment/Plan: * Etoh hepatitis vs. cirrhosis - still drinking -LFT improving * Portal vein thrombosis -no indication for anti-coagulation with cirrhosis * Metabolic/toxic encephalopathy - improved * Etoh withdrawal -CIWA * Recent CVA - asa * Afib -no anticoagulation due to high fall risk * FTT - 30+ ER visits in the last year. APS notified but unclear result -safety of independent living in question -[place] but [place] [place] to see regarding possible psych barriers -Ethics and Palliative care consults pending Subjective: No complaints, feeling better. Objective: Vital Signs Temp Pulse Resp BP Pulse Ox 36.9 C 78 18 117/92 H 98 12/25/17 16:00 12/25/17 16:00 12/25/17 16:00 12/25/17 16:00 12/25/17 16:00 Laboratory Results 12/25/17 04:50 12/25/17 04:50 12/24/17 12/25/17 12/26/17 05:59 05:59 05:59 Intake Total 950 300 Output Total 1500 400 Balance -550 -100 PT 17.3 SEC (12.0-15.0) H 12/24/17 04:30 INR 1.40 (0.83-1.16) H 12/24/17 04:30 - Time Spent With Patient Time Spent with Patient: greater than 35 minutes Time Spent with Patient: Greater than 35 minutes spent on this patients care, greater than 50% of time spent counseling, educating, and coordinating care regarding the above mentioned plan. - Physical Exam Constitutional: no apparent distress, appears nourished, not in pain Cardiovascular: regular rate and rhythym, no murmur, rub, or gallop Respiratory: no respiratory distress, no rales or rhonchi, clear to auscultation Gastrointestinal: normoactive bowel sounds, soft, non-tender abdomen, no palpable masses Skin: no rashes or abrasions, no fluctuance, no induration Neurologic: AAOx3, sensation intact bilaterally Psychiatric: interacting appropriately, not anxious, not encephalopathic, thought process linear ICD10 Worksheet Patient Problems: Problems Problem Status Onset Altered mental status Acute Dehydration Acute Nausea & vomiting Acute Abdominal pain Acute Alcohol abuse Acute Alcohol withdrawal Acute Ankle fracture Acute Atrial fibrillation Acute Atrial fibrillation with RVR Acute C. difficile diarrhea Acute 09/23/16 Cardiac arrest Acute GI bleed Acute Homonymous hemianopsia Acute Hypomagnesemia Acute Nausea and vomiting in adult Acute UTI (urinary tract infection) Acute
[2017-12-26] MEDS: LEVOTHYROXINE 125 MCG TAB PO SCH (05:16)
[2017-12-26 05:25] LABS: PLATELET COUNT 52 10^3/uL (150-400)
--- NOTE | 2017-12-26 08:32 | HOSPPROG ---
Hospitalist Progress Note Assessment/Plan: 62 yo F w/ hx of ETOH cirrhosis, CVA, failure to thrive, and AF presents with nausea and vomiting. Today is my first encounter w the patient, chart reviewed. Discussed her care w Ethics. * Etoh hepatitis vs. cirrhosis - still drinking -LFT improving * Portal vein thrombosis -no indication for anti-coagulation with cirrhosis * Metabolic/toxic encephalopathy - agitated today * Etoh withdrawal -CIWA * Recent CVA - asa * Afib -no anticoagulation due to high fall risk * FTT - 30+ ER visits in the last year. APS notified but unclear result -safety of independent living in question -SNF recommended but always refused -[facility] [place] - borderline -[facility] to see regarding possible psych barriers -Ethics evaluated today - she has limited decisional capacity. Palliative care consult pending, [facility] to see *hyponatremia -will follow *gait instability w falls -has bruising over her r eye, right forehead area *plan: difficult situation, gait is unstable to return home, she has no family for support Subjective: Clarisse is upset, wants a commode by the bed, says she only wants to go home. Objective: Vital Signs Temp Pulse Resp BP Pulse Ox 36.7 C 67 16 149/89 H 98 12/26/17 08:00 12/26/17 08:00 12/26/17 08:00 12/26/17 08:00 12/26/17 08:00 Laboratory Results 12/26/17 05:15 12/26/17 05:15 12/25/17 12/26/17 12/27/17 05:59 05:59 05:59 Intake Total 300 750 Output Total 400 Balance -100 750 PT 17.3 SEC (12.0-15.0) H 12/24/17 04:30 INR 1.40 (0.83-1.16) H 12/24/17 04:30 - Physical Exam Constitutional: chronically ill appearing, unkempt Eyes: PERRL Ears, Nose, Mouth, Throat: hearing normal Cardiovascular: regular rate and rhythym Respiratory: no respiratory distress, reduced air movement Skin: warm, other (ecchymosis around right eye, bruising to r forehead area, skin tears on forearms) Musculoskeletal: generalized weakness Neurologic: AAOx3 Psychiatric: thought process linear, anxious, poor insight, poor judgement ICD10 Worksheet Patient Problems: Problems Problem Status Onset Altered mental status Acute Dehydration Acute Nausea & vomiting Acute Abdominal pain Acute Alcohol abuse Acute Alcohol withdrawal Acute Ankle fracture Acute Atrial fibrillation Acute Atrial fibrillation with RVR Acute C. difficile diarrhea Acute 09/23/16 Cardiac arrest Acute GI bleed Acute Homonymous hemianopsia Acute Hypomagnesemia Acute Nausea and vomiting in adult Acute UTI (urinary tract infection) Acute
[2017-12-26] MEDS: ASPIRIN EC 81 MG TAB PO SCH (09:41)
[2017-12-26] MEDS: FOLIC ACID 1 MG TAB PO SCH (09:41)
[2017-12-26] MEDS: MULTIVITAMINS 1 EACH TAB PO SCH (09:41)
[2017-12-26] MEDS: THIAMINE HCL 100 MG TAB PO SCH ×2 (09:41→10:07)
[2017-12-26] MEDS ORDERED: PROTOCOL MAGNESIUM 1 DOSE IV PRN (16:13)
--- NOTE | 2017-12-26 18:28 | ASMTCMCOM ---
CM Note CM Note Notes: Discussed case in Complex Care Meeting today: Details will be relayed to the following SW/CM on . There appears to still be some question on whether or not patient has decisional capacity. Also awaiting Minna Nieves consult. [employer] will confirm that patient does indeed not qualify for LTC d/t assets. More information to be obtained on . CM will follow. Date Signed: 12/26/2017 06:28 PM Electronically Signed By:Barbara Vazquez RN
[2017-12-27] MEDS: LORazepam 2 MG/ML INJ IVP PRN (00:38)
[2017-12-27] MEDS: LEVOTHYROXINE 125 MCG TAB PO SCH (06:14)
[2017-12-27] MEDS: THIAMINE HCL 100 MG TAB PO SCH (09:28)
[2017-12-27] MEDS: ASPIRIN EC 81 MG TAB PO SCH (09:28)
[2017-12-27] MEDS: MULTIVITAMINS 1 EACH TAB PO SCH (09:28)
[2017-12-27] MEDS: FOLIC ACID 1 MG TAB PO SCH (09:28)
[2017-12-27] MEDS: ACETAMINOPHEN 325 MG TAB PO PRN (12:20)
--- NOTE | 2017-12-27 12:59 | CPEKG ---
Test Reason : OPEN Blood Pressure : / mmHG Vent. Rate : 088 BPM Atrial Rate : 000 BPM P-R Int : 197 ms QRS Dur : 067 ms QT Int : 412 ms P-R-T Axes : 011 002 045 degrees QTc Int : 499 ms Sinus rhythm Low voltage, extremity and precordial leads Borderline prolonged QT interval Confirmed by Steven Messer ([id number]) on 12/27/2017 12:59:07 PM Referred By: Confirmed By:Steven Messer
--- NOTE | 2017-12-27 17:20 | HOSPPROG ---
Hospitalist Progress Note Assessment/Plan: Assessment: 62 yo F p/w acute nausea & vomiting 2/2 acute alcoholic hepatitis and alcohol withdraw c/b acute paresis, encephalopathy Plan: * Acute Etoh hepatitis. Evidenced by AST>ALT 2:1, elevated bili, 2/2 active alcohol abuse -LFTs improving * Portal vein thrombosis. Likely chronic, no indication for anti-coagulation with cirrhosis * Acute Metabolic encephalopathy. Most likely 2/2 combination of metabolic effects of EtOH withdraw, hyponatremia, hepatitis -resolved, current mentation at baseline, albeit memory poor * Paresis. Suspect combination of impaired balance + myopathy from chronic alcoholism -counseled patient that she should work w/ RN to gauge level of functional mobility, participate w/ PT evals -suspect that patient will have significant functional challenges at home, and counseled her that additional support (i.e. SNF) may be appropriate from this location of care, until she is able to get [facility] secured -d/w case mgmt, patient is amenable to [facility] * Etoh withdrawal. Acute, stopping CIWA, resolved * Recent CVA. Cont ASA, no anticoagulation given frequent falls * Afib. Paroxysmal, historically RVR has been induced by both intoxication and withdraw * Alcoholism. Chronic, patient w/ poor memory and insight -that said, she appears to demonstrate capacity to make decisions, with the caveat that she lacks the ability to make generate more complex solutions or plans which are necessary to execute decisions (such as deciding that [facility] is where she would like to live, but not being able to form a plan for how that would be possible) -appreciate Minna Nieves's eval of her, as well as ethics, so that we can formulate a collaborative impression of her decision making capacity -d/w Dr. Barnett and Ida Hathaway, they have shared their impressions of her decisional abilities as well * Hyponatremia. Acute, resolved Diet. Regular PPx. High risk, lovenox 40 Code. Full Dispo. ADD uncertain, pending safe DC options. Currently physically unsafe to DC , high risk readmission/worsening morbidity/mortality Subjective: patient reports that she is frustrated w/ bed alarm, wants to go home Objective: Vital Signs Temp Pulse Resp BP Pulse Ox 36.7 C 77 18 118/72 95 12/27/17 04:00 12/27/17 12:02 12/27/17 04:00 12/27/17 04:00 12/27/17 12:02 Laboratory Results 12/26/17 05:15 12/27/17 06:12 12/26/17 12/27/17 12/28/17 05:59 05:59 05:59 Intake Total 750 1050 Output Total 200 Balance 750 1050 -200 PT 17.3 SEC (12.0-15.0) H 12/24/17 04:30 INR 1.40 (0.83-1.16) H 12/24/17 04:30 - Time Spent With Patient Time Spent with Patient: greater than 35 minutes Time Spent with Patient: Greater than 35 minutes spent on this patients care, greater than 50% of time spent counseling, educating, and coordinating care regarding the above mentioned plan. - Physical Exam Constitutional: no apparent distress, not in pain, chronically ill appearing, No uncomfortable Musculoskeletal: other (prox muscle atrophy) Neurologic: AAOx3, sensation intact bilaterally, No weakness (motor 5/5 bilat LE ) Psychiatric: not anxious, thought process linear, flat affect, poor insight, poor memory, No agitated ICD10 Worksheet Patient Problems: Problems Problem Status Onset Abdominal pain Acute Ankle fracture Acute GI bleed Acute Atrial fibrillation Acute Cardiac arrest Acute UTI (urinary tract infection) Acute Hypomagnesemia Acute Homonymous hemianopsia Acute Dehydration Acute Altered mental status Acute Alcohol withdrawal Acute Nausea and vomiting in adult Acute Alcohol abuse Acute Nausea & vomiting Acute Atrial fibrillation with RVR Acute C. difficile diarrhea Acute 09/23/16
[2017-12-28] MEDS: LORazepam 2 MG/ML INJ IVP PRN (03:32)
[2017-12-28] MEDS: ACETAMINOPHEN 325 MG TAB PO PRN (04:03)
[2017-12-28 04:29] LABS: PLATELET COUNT 108 10^3/uL (150-400)
[2017-12-28] MEDS: LEVOTHYROXINE 125 MCG TAB PO SCH (05:33)
[2017-12-28] MEDS: FOLIC ACID 1 MG TAB PO SCH (09:04)
[2017-12-28] MEDS: MULTIVITAMINS 1 EACH TAB PO SCH (09:04)
[2017-12-28] MEDS: THIAMINE HCL 100 MG TAB PO SCH (09:04)
[2017-12-28] MEDS: ASPIRIN EC 81 MG TAB PO SCH (09:04)
[2017-12-28 12:10] VITALS: BP 101/62
--- NOTE | 2017-12-28 12:25 | ASMTCMCOM ---
CM Note CM Note Notes: CM met with patient to discuss discharge plan. Patient was angry and defensive when asked for clarification on the alcoholic support group she attends regularly as well as when asked to clarify what her needs are at home. She is no longer interested in pursuing Assisted Living and would like to return home with no plan for home care assistance in the near future. She stated several times she needs to "catch up" on her housekeeping and may want assistance after that time. She expressed interest in [facility], CM called to get more information and left for Janessa to return the call. Left a flier for the patient to learn more about [facility] as she has expressed interest in counseling. Plan: Discharge plan TBD- likely will dicharge home. Date Signed: 12/28/2017 12:25 PM Electronically Signed By:Olamide Walton LCSW
--- NOTE | 2017-12-28 16:31 | ASMTCMCOM ---
CM Note CM Note Notes: SKYLAR learned from MD that patient will d/c today Independent as there is no medical reason to keep her here. He had a lengthy conversation with her concerning risk for readmission for similar reasons. She said she wants to go home and does not want home care services at this time. She says she feels the AA meetings are adequate at this time in regard to treatment for alcoholism. CM followed up to let her know we heard back from [facility] and they will call her next week. Also gave her a flier for [facility] and left Britt's contact number for her. She was very sleepy and asked where her clothes were for d/c home. CM informed that staff is trying to locate them and will get her clothes from [facility] if needed. Plan: D/C home independent today. Date Signed: 12/28/2017 04:30 PM Electronically Signed By:Olamide Walton LCSW
--- NOTE | 2017-12-28 17:54 | PDDCSUM ---
Discharge Summary Discharge Summary: DISCHARGE SUMMARY FOLLOW-UP ITEMS: 1. Repeat outpatient complete metabolic profile and CBC at primary care provider office 2. Reassess sobriety 3. Reassess ability to transition to assisted living facility DATE OF ADMISSION: 12/23/2017 DATE OF DISCHARGE: 12/28/2017 DISCHARGE DIAGNOSES: 1. Acute alcohol hepatitis 2. Acute alcohol withdrawal 3. Acute metabolic encephalopathy 4. Chronic portal vein thrombosis 5. 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 Paroxysmal atrial fibrillation 7. Acute hyponatremia 8. Chronic alcoholism 9. Pancytopenia secondary to alcoholism CONSULTATIONS: None PROCEDURES / IMAGING: PICC line insertion Head CT without any intracranial hemorrhage CHIEF COMPLAINT: Acute nausea vomiting SUBJECTIVE: Patient is feeling well at time of discharge, she is requesting discharge home, she is eating and drinking without any difficulty, she has no abdominal pain, no nausea, no vomiting PHYSICAL EXAM ON DISCHARGE: Systolic blood pressure is 110-120, heart rate 80, afebrile neck, satting 1 her , alert awake oriented x3, no apparent distress, no asterixis, abdomen is soft, nontender, completely benign, bowel sounds are present, lungs are clear to auscultation bilaterally, heart rhythm is regular, has capacity to make decisions comma memory is poor LABS ON DISCHARGE: White blood cell count 2300, hemoglobin 9.5, platelets [id number], serum sodium 133 , serum bicarbonate 25, creatinine 0.6, total bilirubin 2.6, AST 63, ALT 50, alk -phos 142 HOSPITAL COURSE BY PROBLEM: The patient presented with acute nausea and vomiting most likely secondary to acute alcohol withdrawal as well as concomitant acute alcohol induced hepatitis with significantly elevated liver enzymes with an AST to ALT ratio of 2:1, and evidence of subsequent hypovolemia resulting in acute hyponatremia. She received supportive IV fluids, received supportive antiemetics, was placed on CIWA protocol and received Ativan. Although the patient did have evidence of cholelithiasis and gallbladder wall thickening on imaging, she demonstrated no evidence of abdominal tenderness and a negative Sandy sign, and I suspect the patient's radiographic findings are secondary to underlying cirrhosis with pancytopenia secondary to chronic liver disease and alcoholism. We would recommend repeating liver panel and CBC as an outpatient through primary care provider office. The patient also demonstrated acute metabolic encephalopathy most likely secondary to a combination of metabolic effects of alcohol withdrawal, hyponatremia, and hepatitis. Throughout her hospitalization, her mental status improved to baseline, which reveals the capacity to make medical decisions but lacks a degree of executive function requiring for complex decision making as well as notable memory impairments, specifically regarding the events surrounding her presentation. I recapped the patient's presentation with her, and we heavily encouraged group home facility transition while the patient attempts to arrange assisted living facility scenario moving forward. The patient vehemently refused to go to a group home facility for temporary physical rehabilitation, and she requested to be discharged home. We offered her home care services and she declined. We offered her outpatient resources for alcoholism, the patient prefers to utilize alcohol[facility] anonymous rather than additional structured program. We shared with the patient are concerns that she is very bone herbal to reinitiating alcohol and is at high risk for life- threatening sequelae such as falls, fractures, hemorrhages. The patient reports that she will assume these risks and wants to be discharged home. Given her history of falls as well as head trauma, she is only being discharged on aspirin 81 mg for CVA prevention, and this was the treatment strategy outlined by Dr. Kiet Melo in his 08/07/2017 consultation after the patient experienced a mild CVA in the setting of atrial fibrillation. At that time he did not recommend Plavix or systemic anticoagulation given her risk of intracranial hemorrhage from her numerous, recurrent falls. We worked closely with the patient and encouraged her to seek a more structured , stable, safer living situation then her private residence. The patient did seem open to transitioning to assisted living, but we have significant concerns regarding her ability to follow through and execute the complexities of this on her own. We attempted to provide her with all of the outpatient resources in agencies required. We offered the patient physical rehabilitation at group home facility where she could receive ongoing case management assistance, but the patient declined. We recommend close outpatient follow up with her primary care provider and assistance from their office. DISCHARGE MEDICATIONS: Please see official discharge medication reconciliation sheet in chart , aspirin 81 mg daily, thiamine, multivitamin. DISCHARGE INSTRUCTIONS: Please remain abstinent from alcohol. Please consider transition to assisted living facility in the immediate future. Please consider outpatient alcoholism programs. TIME SPENT: Greater than 30 minutes were spent on direct patient care, as well as discharge planning and preparation.
== END 2017-12-28 17:22 | disposition home or self-care (01) | DRG 775 ==
LOC: EDUNIT# → F3N 08:22 → F1N 12-26 10:18
PROVIDERS: ADMIT Student in an Organized Health Care Education/Training Program; ATTEND Internal Medicine
PROC: HZ2ZZZZ Detoxification Services for Substance Abuse Treatment (ICD-10-PCS; principal; 2017-12-23)
PROC: 02HV33Z Insertion of Infusion Device into Superior Vena Cava, Percutaneous Approach (ICD-10-PCS; 2017-12-23)
DX: F10.239 Alcohol dependence with withdrawal, unspecified (principal); K70.10 Alcoholic hepatitis without ascites; K70.30 Alcoholic cirrhosis of liver without ascites; I81 Portal vein thrombosis; E86.1 Hypovolemia; E87.1 Hypo-osmolality and hyponatremia; K80.20 Calculus of gallbladder without cholecystitis without obstruction; G93.41 Metabolic encephalopathy; I48.0 Paroxysmal atrial fibrillation; R29.6 Repeated falls; Z86.73 Personal history of transient ischemic attack (TIA), and cerebral infarction without residual deficits; Z79.82 Long term (current) use of aspirin
CPT/HCPCS: 92507-GN; 92523-GN; 96374; 97116-GP; 97161-GP; 97166-GO; 97530-GO; 97530-GP; 97535-GO; C1751; G0480; J2060; J2405

== ENCOUNTER 2018-01-12 19:13 | Emergency (ER) | payer MEDICAID ==
--- NOTE | 2018-01-12 19:25 | EDPHY ---
H & P Time Seen by Provider: 01/12/18 19:25 HPI/ROS: CHIEF COMPLAINT: "I do not feel well" HISTORY OF PRESENT ILLNESS: Patient says she has been having difficulty speaking with the intermittent stutter but says she can't tell me when this started. When I pressed her to tell me when she thought her speech was last normal she got very angry and said "I have lost my memory."The patient was drinking alcohol tonight, called 911 from her neighbors house. She denies headache or any visual symptoms or weakness or numbness in extremities. Denies ataxia or vertigo or spinning. She says the symptoms are intermittent and mild. Not better worse with anything. REVIEW OF SYSTEMS: Eye: no change in vision ENT: no sore throat Cardiac: no chest pain or syncope, no palpitations Pulmonary: no cough or SOB Abdomen: no vomiting, diarrhea, abdominal pain Musculoskeletal: Chronic right leg pain and swelling after previous fracture and surgery Skin: no rash Neuro: no headache Constitutional: no fever : no urinary symptoms A comprehensive 10 point review of systems is otherwise negative aside from elements mentioned in the history of present illness. PAST MEDICAL HISTORY: H&P dated 12/23/2017 includes cirrhosis and alcoholism, stroke, atrial fibrillation, withdrawal seizures, chronic back pain, arrested aspiration, DVT and PE. Social history: recent alcohol General Appearance: Alert and conversant, cooperative. Eyes: No scleral icterus. Pupils equal round reactive extraocular motion intact. ENT, Mouth: Normal mucous membranes. No tongue laceration or abrasion. Respiratory: Normal respiratory effort, breath sounds equal, lungs are clear to auscultation. Cardiovascular: Regular rate and rhythm. Gastrointestinal: Abdomen is soft and non tender. Neurological: Alert, face symmetric, normal motor and sensory in extremities. Patient has fluent speech and then intermittent stutter. No difficulty with naming objects and not aphasic. Normal [id number] bilaterally. Can lift each leg off the bed independently. Skin: Warm and dry, no rashes. Musculoskeletal: No peripheral edema. Psychiatric: Intermittently calm and then angry. Emergency Department course/MDM: Not a stroke alert because unknown last known normal. Additionally I do think that intermittent stuttering speech would be unlikely to be stroke. Plan for head CT, labs to include ethanol, EKG and serial exam. 2154: Patient re-examined and has normal speech at this time. Clinically is not intoxicated, stable for discharge. Stuttering has resolved, ambulatory not ataxic. Smoking Status: Never smoked Constitutional: Initial Vital Signs Temperature (C) 36.8 C 01/12/18 19:17 Heart Rate 92 01/12/18 19:17 Respiratory Rate 18 01/12/18 19:17 Blood Pressure 142/88 H 01/12/18 19:17 O2 Sat (%) 96 01/12/18 19:17 O2 Delivery Mode Room Air Allergies/Adverse Reactions: Sulfa (Sulfonamide Antibiotics) Allergy (Mild, Verified 12/22/17 06:14) Rash Home Medications: Medication Instructions Recorded Levothyroxine [Synthroid 125 mcg 125 mcg PO DAILY06 12/23/17 (*)] Aspirin EC [Aspirin EC 81 mg (*)] 81 mg PO DAILY #30 tab 12/28/17 Multivitamins [Multivitamin (*)] 1 each PO DAILY #30 tab 12/28/17 Thiamine HCl [Vitamin B-1] 100 mg PO DAILY #30 tab 12/28/17 Medical Decision Making - Diagnostics EKG Interpretation: 12-lead EKG interpreted by me; official reading is in computer system. My interpretation is atrial fibrillation with low voltage and late anterior RS transition rate 80. Imaging Results: Imaging Impressions Head CT 01/12/18 19:36 Impression: Mild senescent features, with no acute intracranial abnormality, or substantial change from 12/23/2017. If there is further clinical concern regarding the patient's symptoms, MR imaging is suggested, if not otherwise contraindicated. Findings were discussed with STARR DIXON MD at 20:05, on 01/12/2018. Imaging: Discussed imaging studies w/ at home independent call center agent Radiologist Differential Diagnosis: Differential for difficulty with speech considered including but not limited to stroke, TIA, seizure, alcohol intoxication, metabolic. - Data Points Laboratory Results: Laboratory Results 01/12/18 19:35 01/12/18 19:35 01/12/18 01/12/18 01/12/18 19:35 19:35 19:35 WBC RBC Hgb Hct MCV MCH MCHC RDW Plt Count MPV Neut % (Auto) Lymph % (Auto) [place] % (Auto) Eos % (Auto) Baso % (Auto) Nucleat RBC Rel Count Absolute Neuts (auto) Absolute Lymphs (auto) Absolute Monos (auto) Absolute Eos (auto) Absolute Basos (auto) Absolute Nucleated RBC Immature Gran % Immature Gran # Sodium 141 mEq/L mEq/L (135-145) Potassium 4.4 mEq/L mEq/L (3.3-5.0) Chloride 101 mEq/L mEq/L (97-110) Carbon Dioxide 24 mEq/l mEq/l (22-31) Anion Gap 16 mEq/L mEq/L (8-16) BUN 7 mg/dL mg/dL (7-23) Creatinine 0.7 mg/dL mg/dL (0.6-1.0) Estimated GFR > 60 Glucose 84 mg/dL mg/dL (70-100) Calcium 9.0 mg/dL mg/dL (8.5-10.4) Beta HCG, Qual NEGATIVE Ethyl Alcohol 262 mg/dL H mg/dL (0-10) 01/12/18 19:35 WBC 4.77 10^3/uL 10^3/uL (3.80-9.50) RBC 3.59 10^6/uL L 10^6/uL (4.18-5.33) Hgb 12.8 g/dL g/dL (12.6-16.3) Hct 37.8 % L % (38.0-47.0) MCV 105.3 fL H fL (81.5-99.8) MCH 35.7 pg H pg (27.9-34.1) MCHC 33.9 g/dL g/dL (32.4-36.7) RDW 13.2 % % (11.5-15.2) Plt Count 207 10^3/uL 10^3/uL (150-400) MPV 9.0 fL fL (8.7-11.7) Neut % (Auto) 45.4 % % (39.3-74.2) Lymph % (Auto) 46.5 % H % (15.0-45.0) [place] % (Auto) 6.5 % % (4.5-13.0) Eos % (Auto) 0.6 % % (0.6-7.6) Baso % (Auto) 0.8 % % (0.3-1.7) Nucleat RBC Rel Count 0.0 % % (0.0-0.2) Absolute Neuts (auto) 2.16 10^3/uL 10^3/uL (1.70-6.50) Absolute Lymphs (auto) 2.22 10^3/uL 10^3/uL (1.00-3.00) Absolute Monos (auto) 0.31 10^3/uL 10^3/uL (0.30-0.80) Absolute Eos (auto) 0.03 10^3/uL 10^3/uL (0.03-0.40) Absolute Basos (auto) 0.04 10^3/uL 10^3/uL (0.02-0.10) Absolute Nucleated RBC 0.00 10^3/uL 10^3/uL (0-0.01) Immature Gran % 0.2 % % (0.0-1.1) Immature Gran # 0.01 10^3/uL 10^3/uL (0.00-0.10) Sodium Potassium Chloride Carbon Dioxide Anion Gap BUN Creatinine Estimated GFR Glucose Calcium Beta HCG, Qual Ethyl Alcohol Departure - Departure Disposition: Home, Routine, Self-Care Clinical Impression: Stuttering Alcohol intoxication Qualifiers: Complication of substance-induced condition: uncomplicated Qualified Code(s): F10.920 - Alcohol use, unspecified with intoxication, uncomplicated Condition: Good Instructions: Alcohol Intoxication (ED) Referrals: Patient,NotPresent [Unknown] - As per Instructions Makenzie Briggs MD [Medical Doctor] - As per Instructions
[2018-01-12 19:45] LABS: PLATELET COUNT 207 10^3/uL (150-400)
--- NOTE | 2018-01-12 20:34 | CPEKG ---
Test Reason : OPEN Blood Pressure : / mmHG Vent. Rate : 080 BPM Atrial Rate : 077 BPM P-R Int : 182 ms QRS Dur : 078 ms QT Int : 419 ms P-R-T Axes : -27 019 053 degrees QTc Int : 484 ms Atrial fibrillation Low voltage, extremity and precordial leads Probable anteroseptal infarct, old Confirmed by Calvin Villarreal ([id number]) on 01/12/2018 8:34:04 PM Referred By: Confirmed By:Calvin Villarreal
[2018-01-12 22:08] VITALS: BP 129/77
== END 2018-01-12 22:08 | disposition home or self-care (01) ==
LOC: EDUNIT#
DX: R42 Dizziness and giddiness (principal); R27.0 Ataxia, unspecified
CPT/HCPCS: G0480

== ENCOUNTER 2018-01-15 21:42 | Inpatient (IN) | payer MEDICAID ==
--- NOTE | 2018-01-15 22:13 | EDPHY ---
H & P Stated Complaint: vomiting Time Seen by Provider: 01/15/18 22:13 HPI/ROS: HPI CHIEF COMPLAINT: Nausea vomiting HISTORY OF PRESENT ILLNESS: 62-year-old female, very familiar to myself as well as the emergency room, she is an alcoholic, drinks daily, presents to the emergency room with nausea vomiting. Patient states that she started vomiting around 6:00 p.m. It is now 10:15 p.m. Patient denies any chest pain or shortness of breath. Denies any abdominal pain. She does state that she still drinks vodka. Last drink was earlier today. She does feel like she is going through some mild withdrawal. Past Medical History: Significant medical history for daily alcohol use, alcoholism, alcohol-induced hepatitis, alcohol draw, metabolic encephalopathy, AFib, hyponatremia, history cardiac arrest Past Surgical History: No recent surgery Social History: Lives locally, daily alcohol use, typically drinks vodka. Family History: Noncontributory ROS REVIEW OF SYSTEMS: 10 Systems were reviewed and negative with the exception of the elements mentioned in the history of present illness. Exam Constitutional nontoxic. triage nursing summary reviewed, vital signs reviewed, awake/alert. Eyes normal conjunctivae and sclera, EOMI, PERRLA. HENT yellowing of both eyes, normal inspection, atraumatic, moist mucus membranes, no epistaxis, neck supple/ no meningismus, no raccoon eyes. Respiratory clear to auscultation bilaterally, normal breath sounds, no respiratory distress, no wheezing. Cardiovascular rate normal, regular rhythm, no murmur, no edema, distal pulses normal. Gastrointestinal soft, non-tender, no rebound, no guarding, normal bowel sounds, no distension, no pulsatile mass. Genitourinary no CVA tenderness. Musculoskeletal no midline vertebral tenderness, full range of motion, no calf swelling, no tenderness of extremities, no meningismus, good pulses, neurovascularly intact. Skin pink, warm, & dry, no rash, skin atraumatic. Neurologic mildly shaky, awake, alert and oriented x 3, AAOx3, moves all 4 extremities equally, motor intact, sensory intact, CN II-XII intact, normal cerebellar, normal vision, normal speech. Psychiatric normal mood/affect. Heme/Lymph/Immune no lymphadenopathy. Differential Diagnosis: Includes but is not limited to in a particular order dehydration, electrolyte disturbance, acute alcohol gastritis, alcoholism, magnesium, anxiety, alcohol withdraw Medical Decision Making: Plan for this patient IV establishment IV fluid bolus , IV Ativan for draw, IV Zofran nausea, check basic electrolytes. Re-evaluate. Re-evaluation: 2344: Patient's lab work reviewed. Severe electrolyte abnormalities including low calcium, low potassium, low Mag. Additionally patient going through alcohol withdrawal. Given this severe electrolyte abnormalities, and history of severe alcoholism with alcohol draw she will need to be admitted the hospitalist service. I spoke with Dr. Pisano agrees to admit this patient. Source: Patient - Personal History Current Tetanus/Diphtheria Vaccine: Yes Current Tetanus Diphtheria and Acellular Pertussis (TDAP): Yes Tetanus Vaccine Date: 2014 - Medical/Surgical History Hx Asthma: No Hx Chronic Respiratory Disease: No Hx Diabetes: No Hx Cardiac Disease: Yes Hx Renal Disease: No Hx Cirrhosis: No Hx Alcoholism: Yes Hx HIV/AIDS: No Hx Splenectomy or Spleen Trauma: No Other PMH: PMHx: Alcoholism, degenerative disc disease, osteoarthritis, scoliosis, heart murmur, a-fib, C difficile-Dec 2015, hx withdrawal, pancreatitis, R leg fx, [place]. PSHx: tonsillectomy - Social History Smoking Status: Never smoked Constitutional: Initial Vital Signs Temperature (C) 37.0 C 01/15/18 21:44 Heart Rate 98 01/15/18 21:44 Respiratory Rate 16 01/15/18 21:44 Blood Pressure 127/82 H 01/15/18 21:44 O2 Sat (%) 98 01/15/18 21:44 O2 Delivery Mode Room Air O2 (L/minute) 2 Allergies/Adverse Reactions: Sulfa (Sulfonamide Antibiotics) Allergy (Mild, Verified 01/18/18 07:30) Rash Home Medications: Medication Instructions Recorded Multivitamins [Multivitamin (*)] 1 each PO DAILY #30 tab 12/28/17 Thiamine HCl [Vitamin B-1] 100 mg PO DAILY #30 tab 12/28/17 Aspirin [Aspirin 81mg (*)] 81 mg PO DAILY #30 tab 01/17/18 Folic Acid [Folic Acid 1 MG (*)] 1 mg PO DAILY #30 tab 01/17/18 Medical Decision Making - Data Points Laboratory Results: Laboratory Results 01/16/18 04:07 01/16/18 04:07 Medications Given: Discontinued Medications Acetaminophen (Tylenol) 650 mg PO Q4HRS PRN PRN Reason: Pain, Mild/Fever, Can Take PO Stop: 07/14/18 23:48 Last Admin: 01/16/18 13:25 Dose: 650 mg Calcium Chloride (Calcium Chloride) 1 gm IV EDNOW ONE Stop: 01/15/18 23:33 Last Admin: 01/16/18 00:42 Dose: Not Given Calcium Chloride (Calcium Chloride) 1 gm IV ONCE ONE Stop: 01/16/18 00:39 Last Admin: 01/16/18 04:32 Dose: Not Given Folic Acid (Folic Acid) 1 mg PO DAILY ZHANE Stop: 07/15/18 08:59 Last Admin: 01/17/18 09:38 Dose: 1 mg Sodium Chloride (Ns) 1,000 mls @ 0 mls/hr IV EDNOW ONE; Wide Open PRN Reason: Protocol Stop: 01/15/18 22:17 Last Admin: 01/15/18 22:25 Dose: 1,000 mls Magnesium Sulfate (Magnesium Sulf 2 Gm (Premix)) 50 mls @ 50 mls/hr IV EDNOW ONE Stop: 01/16/18 00:31 Last Admin: 01/16/18 00:07 Dose: 50 mls Potassium Chloride (Potassium Cl 20 Meq (Premix)) 100 mls @ 50 mls/hr IV EDNOW ONE Stop: 01/16/18 01:32 Last Admin: 01/16/18 01:13 Dose: 100 mls Potassium Chloride/Sodium Chloride (Ns W/ 20 Kcl/L) 1,000 mls @ 100 mls/hr IV CONT ZHANE Stop: 07/14/18 23:44 Last Admin: 01/16/18 11:51 Dose: 1,000 mls Calcium Gluconate 1 gm/ Sodium (Chloride) 60 mls @ 120 mls/hr IV ONCE ONE Stop: 01/16/18 05:29 Last Admin: 01/16/18 04:42 Dose: 60 mls Magnesium Sulfate/Dextrose (Magnesium Sulf 1 Gm (Premix)) 100 mls @ 100 mls/hr IV ONCE ONE Stop: 01/17/18 11:35 Last Admin: 01/17/18 11:47 Dose: 100 mls Influenza Virus Vaccine Quadrival (Flulaval Quad [id number] (6mo+)) 0.5 ml IM .ONCE ONE Stop: 01/16/18 10:21 Last Admin: 01/16/18 11:01 Dose: 0.5 ml Lorazepam (Ativan Injection) 1 mg IVP EDNOW ONE Stop: 01/15/18 22:18 Last Admin: 01/15/18 22:26 Dose: 1 mg Lorazepam (Ativan Injection) 0 mg IVP Q1H PRN; Protocol PRN Reason: Alcohol Withdrawal w/IV access Stop: 07/14/18 23:50 Last Admin: 01/16/18 18:48 Dose: 2 mg Multivitamins (Tab-A-Gladys) 1 each PO DAILY ZHANE Stop: 07/15/18 08:59 Last Admin: 01/17/18 09:38 Dose: 1 each Ondansetron HCl (Zofran) 4 mg IVP EDNOW ONE Stop: 01/15/18 22:17 Last Admin: 01/15/18 22:26 Dose: 4 mg Thiamine HCl (Vitamin B-1) 100 mg PO DAILY ZHANE Stop: 07/15/18 08:59 Last Admin: 01/17/18 09:38 Dose: 100 mg Departure - Departure Disposition: [facility] Acute Clinical Impression: Dehydration, Hypokalemia, Hypocalcemia, Hypomagnesemia Alcohol withdrawal Qualifiers: Complication of substance-induced condition: uncomplicated Qualified Code(s): F10.230 - Alcohol dependence with withdrawal, uncomplicated Condition: Good
[2018-01-15] MEDS ORDERED: NS 1,000 ML IV ONE (22:16)
[2018-01-15] MEDS ORDERED: ONDANSETRON 4 MG/2 ML VIAL IVP ONE (22:16)
[2018-01-15] MEDS ORDERED: LORazepam 2 MG/ML INJ IVP ONE (22:17)
[2018-01-15 23:02] LABS: PLATELET COUNT 87 10^3/uL (150-400)
[2018-01-15] MEDS ORDERED: CALCIUM CHLORIDE 1 GM/10 ML INJ IV ONE (23:32)
[2018-01-15] MEDS ORDERED: MAGNESIUM SULF 2 GM/WATER 50 ML IV ONE (23:32)
[2018-01-15] MEDS ORDERED: POTASSIUM Cl (KCl) 100 ML IV ONE (23:33)
[2018-01-15] MEDS ORDERED: ONDANSETRON DISINTEGRATING 4 MG TAB PO PRN (23:49)
[2018-01-15] MEDS ORDERED: ONDANSETRON 4 MG/2 ML VIAL IVP PRN (23:49)
[2018-01-15] MEDS ORDERED: PROTOCOL MAGNESIUM 1 DOSE IV PRN (23:50)
[2018-01-15] MEDS ORDERED: PROTOCOL POTASSIUM 1 DOSE MISC PRN (23:50)
[2018-01-15] MEDS ORDERED: PROTOCOL K PHOSPHATE 1 DOSE IV PRN (23:50)
[2018-01-15] MEDS ORDERED: PROTOCOL CALCIUM 1 DOSE IV PRN (23:50)
[2018-01-15] MEDS ORDERED: FLUMAZENIL 0.5 MG/5 ML MDV IVP PRN (23:51)
--- NOTE | 2018-01-16 00:28 | PDGENHP ---
History and Physical - Chief Complaint Nausea - History of Present Illness 62 yo F w/ hx of ETOH use disorder, cirrhosis, FTT, frequent falls, AF, and CVA presents with nausea and vomiting. Patient has been having nausea and vomiting for 1 day. She denies other symptoms. She was discharged home on 12/28 after admission for falls and several issues related to her heavy alcohol use. She again refused SNF placement and instead opted to be discharged home. She tells me she has been doing well at home and denies any falls. She has resumed drinking her usual 1/2-1 pint of vodka daily. Her last drink was 6 PM on day of admission. At the time of my evaluation her nausea is improved. She is being admitted for electrolyte disturbances and early ETOH w/d. Records reviewed in EMR; case discussed with ED physician Dr. Mckenna. History Information - Allergies/Home Medication List Allergies/Adverse Reactions: Sulfa (Sulfonamide Antibiotics) Allergy (Mild, Verified 01/15/18 21:48) Rash Home Medications: Levothyroxine [Synthroid 125 mcg (*)] 125 mcg PO DAILY06 12/23/17 [Last Taken Unknown] I have personally reviewed and updated: family history, medical history - Past Medical History Additional medical history: atrial fibrillation not a candidate for anticoagulation secondary to fall risk and history of coagulopathy and thrombocytopenia. etoh dependence with history of pancreatitis, withdrawal seizures. C diff 12/2015. anemia, coagulopathy. degenerative disk disease. scoliosis. chronic back pain. hypothyroidism. depression. History DVT and PE. History of cardiac arrest secondary to aspiration - Surgical History Additional surgical history: ORIF tib-fib 03/26/17. T/A - Family History Additional family history: father age 42 due to accident. mother age 50s due to esophageal ca - Social History Smoking Status: Never smoked Additional social history: Patient lives alone. COR - FULL. desires Renay Carbone (sister) to act as proxy if needed. Review of Systems Review of Systems: ROS: 10pt was reviewed & negative except for what was stated in HPI & below Physical Exam Physical Exam: Temp Pulse Resp BP Pulse Ox 36.9 C 95 20 144/95 H 96 01/16/18 00:11 01/16/18 00:11 01/16/18 00:11 01/16/18 00:11 01/16/18 00:11 Constitutional: no apparent distress, chronically ill appearing Eyes: PERRL, EOMI Ears, Nose, Mouth, Throat: moist mucous membranes, no oral mucosal ulcers Cardiovascular: regular rate and rhythym, no murmur, rub, or gallop Respiratory: no respiratory distress, clear to auscultation Gastrointestinal: normoactive bowel sounds, soft, non-tender abdomen Skin: warm, normal color Musculoskeletal: full muscle strength, other (Walking boot R foot) Neurologic: CN II-XII Intact, other (A&Ox2) Psychiatric: interacting appropriately, not anxious Lab Data & Imaging Review 01/15/18 22:30 01/15/18 22:30 WBC 4.17 10^3/uL (3.80-9.50) 01/15/18 22: RBC 3.50 10^6/uL (4.18-5.33) L 01/15/18 22:30 Hgb 12.3 g/dL (12.6-16.3) L 01/15/18 22:30 Hct 37.3 % (38.0-47.0) L 01/15/18 22:30 MCV 106.6 fL (81.5-99.8) H 01/15/18 22:30 MCH 35.1 pg (27.9-34.1) H 01/15/18 22:30 MCHC 33.0 g/dL (32.4-36.7) 01/15/18 22:30 RDW 13.1 % (11.5-15.2) 01/15/18 22:30 Plt Count 87 10^3/uL (150-400) L 01/15/18 22:30 MPV 10.2 fL (8.7-11.7) 01/15/18 22:30 Neut % (Auto) 79.1 % (39.3-74.2) H 01/15/18 22:30 Lymph % (Auto) 15.1 % (15.0-45.0) 01/15/18 22:30 Potter % (Auto) 4.6 % (4.5-13.0) 01/15/18 22:30 Eos % (Auto) 0.0 % (0.6-7.6) L 01/15/18 22:30 Baso % (Auto) 0.5 % (0.3-1.7) 01/15/18 22:30 Nucleat RBC Rel Count 0.0 % (0.0-0.2) 01/15/18 22:30 Absolute Neuts (auto) 3.30 10^3/uL (1.70-6.50) 01/15/18 22:30 Absolute Lymphs (auto) 0.63 10^3/uL (1.00-3.00) L 01/15/18 22:30 Absolute Monos (auto) 0.19 10^3/uL (0.30-0.80) L 01/15/18 22:30 Absolute Eos (auto) 0.00 10^3/uL (0.03-0.40) L 01/15/18 22:30 Absolute Basos (auto) 0.02 10^3/uL (0.02-0.10) 01/15/18:30 Absolute Nucleated RBC 0.00 10^3/uL (0-0.01) 01/15/18 22: Immature Gran % 0.7 % (0.0-1.1) 01/15/18 22:30 Immature Gran # 0.03 10^3/uL (0.00-0.10) 01/15/18 22:30 Sodium 138 mEq/L (135-145) 01/15/18 22:30 Potassium 2.8 mEq/L (3.3-5.0) L 01/15/18 22:30 Chloride 115 mEq/L (97-110) H 01/15/18 22:30 Carbon Dioxide 16 mEq/l (22-31) L 01/15/18 22:30 Anion Gap 7 mEq/L (8-16) L 01/15/18 22:30 BUN 3 mg/dL (7-23) L 01/15/18 22:30 Creatinine 0.4 mg/dL (0.6-1.0) L 01/15/18 22:30 Estimated GFR > 60 01/15/18 22:30 Glucose 62 mg/dL (70-100) L 01/15/18 22:30 Calcium 5.8 mg/dL (8.5-10.4) L* 01/15/18 22:30 Magnesium 0.9 mg/dL (1.6-2.3) L* 01/15/18 22:30 Total Bilirubin 2.2 mg/dL (0.1-1.4) H 01/15/18 22:30 Conjugated Bilirubin 1.2 mg/dL (0.0-0.5) H 01/15/18 22:30 Unconjugated Bilirubin 1.0 mg/dL (0.0-1.1) 01/15/18 22:30 AST 157 IU/L (14-46) H 01/15/18 22:30 ALT 70 IU/L (9-52) H 01/15/18 22:30 Alkaline Phosphatase 136 IU/L (38-126) H 01/15/18 22:30 Total Protein 4.1 g/dL (6.3-8.2) L 01/15/18 22:30 Albumin 2.1 g/dL (3.5-5.0) L 01/15/18 22:30 Lipase 164 IU/L (23-300) 01/15/18 22:30 Ethyl Alcohol 47 mg/dL (0-10) H 01/15/18 22:30 Assessment & Plan Assessment: 62 yo F w/ hx of ETOH use disorder, cirrhosis, FTT, frequent falls, AF, and CVA presents with nausea and vomiting. Plan: 1. Nausea, vomiting - Presumably multifactorial from ETOH, significant electrolyte disturbances, likely gastritis, and malnutrition. She feels improved after anti-emetics and IVF in the ED. - Continue anti-emetics PRN 2. ETOH use disorder - With mild, early ETOH withdrawal. She has resumed drinking her usual 1/2-1 pint of vodka daily after her recent discharge on 12/28. - CIWA protocol ordered - Daily MVI, folate, thiamine 3. ETOH cirrhosis - LFTs relatively near baseline, complicated by thrombocytopenia. - Monitor CMP 4. FTT - Complicated by frequent falls, although she denies any since discharge. She denied SNF placement last admission and has done so several times previously. - PT/OT/CM evaluations 5. Hypokalemia, hypomagnesemia, hypocalcemia - Secondary to ETOH use, vomiting, and malnutrition. - Replacement protocols ordered - Monitor CMP, Mg, Ph 6. Hx CVA - Infarct in L mesial temporal and occipital lobes in July of 2017. - Continue ASA 7. AF - Not an AC candidate to due to high fall risk. - Continue ASA Diet - Regular Code - Full Ppx - SCDs 2/2 low platelets Dispo - Admit under observation status
[2018-01-16] MEDS ORDERED: CALCIUM CHLORIDE 1 GM/10 ML INJ IV ONE (00:38)
[2018-01-16] MEDS ORDERED: POTASSIUM Cl (KCl) 10 MEQ/100 ML BAG IV ONE (01:08)
[2018-01-16] MEDS: NS W/ 20 KCl/L 1,000 ML IV SCH ×2 (01:35→11:51)
[2018-01-16] MEDS: ACETAMINOPHEN 325 MG TAB PO PRN ×3 (01:48→13:25)
[2018-01-16] MEDS: LORazepam 2 MG/ML INJ IVP PRN ×5 (01:48→18:48)
[2018-01-16 04:16] LABS: PLATELET COUNT 74 10^3/uL (150-400)
[2018-01-16 04:26] LABS: INR 1.18 (0.83-1.16); PROTIME(PATIENT) 15.2 SEC (12.0-15.0)
[2018-01-16] MEDS ORDERED: CALCIUM GLUCONATE 1 GM in NS 50 ML IV ONE (05:00)
[2018-01-16] MEDS: FOLIC ACID 1 MG TAB PO SCH (08:21)
[2018-01-16] MEDS: MULTIVITAMINS 1 EACH TAB PO SCH (08:21)
[2018-01-16] MEDS: THIAMINE HCL 100 MG TAB PO SCH (08:22)
--- NOTE | 2018-01-16 13:02 | HOSPPROG ---
Hospitalist Progress Note Assessment/Plan: 62 yo F w/ hx of ETOH use disorder, cirrhosis, FTT, frequent falls, AF, and CVA presents with nausea and vomiting. Plan: 1. Nausea, vomiting - Presumably multifactorial from ETOH, significant electrolyte disturbances, likely gastritis, and malnutrition. She feels improved - Continue anti-emetics PRN -trial off IVF 2. ETOH use disorder with mild WD symptoms - With mild, early ETOH withdrawal. She has resumed drinking her usual 1/2-1 pint of vodka daily after her recent discharge on 12/28. - CIWA protocol ordered. Has required Ativan today - Daily MVI, folate, thiamine 3. ETOH cirrhosis - LFTs relatively near baseline, complicated by thrombocytopenia. - Monitor CMP 4. FTT - Complicated by frequent falls, although she denies any since discharge. She denied SNF placement last admission and has done so several times previously. - PT/OT/CM evaluations 5. Hypokalemia, hypomagnesemia, hypocalcemia - Secondary to ETOH use, vomiting, and malnutrition. - Replacement protocols ordered - Monitor CMP, Mg, Ph 6. Hx CVA - Infarct in L mesial temporal and occipital lobes in July of 2017. - Continue ASA 7. AF - Not an AC candidate to due to high fall risk. - Continue ASA Diet - Regular Code - Full Ppx - SCDs 2/2 low platelets Dispo/Plan The pt is doing better. Nausea is better. Will do a trial off IVF. She has required Ativan for WD CPM PT eval Subjective: no current nausea. still weak. Objective: Vital Signs Temp Pulse Resp BP Pulse Ox 36.8 C 108 H 14 105/81 H 92 01/16/18 12:00 01/16/18 12:00 01/16/18 12:00 01/16/18 12:00 01/16/18 12:00 Laboratory Results 01/16/18 04:07 01/16/18 04:07 01/15/18 01/16/18 01/17/18 05:59 05:59 05:59 Intake Total 1925 600 Output Total 300 100 Balance 1625 500 PT 15.2 SEC (12.0-15.0) H 01/16/18 04:07 INR 1.18 (0.83-1.16) H 01/16/18 04:07 - Physical Exam Constitutional: chronically ill appearing Eyes: PERRL Ears, Nose, Mouth, Throat: moist mucous membranes, hearing normal Cardiovascular: regular rate and rhythym, No edema Respiratory: no respiratory distress, no rales or rhonchi, clear to auscultation Gastrointestinal: normoactive bowel sounds, soft, non-tender abdomen Skin: warm Musculoskeletal: generalized weakness Neurologic: AAOx3 Psychiatric: not encephalopathic Lymph, Heme, Immunologic: No petechiae ICD10 Worksheet Patient Problems: Problems Problem Status Onset Alcohol withdrawal Acute Dehydration Acute Hypocalcemia Acute Hypokalemia Acute Hypomagnesemia Acute Abdominal pain Acute Alcohol abuse Acute Altered mental status Acute Ankle fracture Acute Atrial fibrillation Acute Atrial fibrillation with RVR Acute C. difficile diarrhea Acute 09/23/16 Cardiac arrest Acute GI bleed Acute Homonymous hemianopsia Acute Nausea & vomiting Acute Nausea and vomiting in adult Acute UTI (urinary tract infection) Acute
--- NOTE | 2018-01-16 14:46 | ASMTCASEMG ---
Living Arrangements What is your living Answers: Alone arrangement? Who do you live with? Type Of Residence What kind of residence do Answers: House you live in? Discharge Plan Comments Coordination Status Comments Notes: Pts case discussed w/ Dr. Zarate. Pt is a 62 y/o female well known to [facility] with several ER visits and hospitalizations. Pt admitted for nausea and vomiting. Pt chronically uses etoh. Pt has a hx of cirrhosis, FTT, frequent falls, AF, and CVA. Pt discharge on 12/28 and refused snf at this time. Pt historically refuses SNF and HC services. Pt drinks about 1/2-1 pint of vodka daily. CM met w/ pt with Dr. Zarate. Pt would like to d/c to [facility] in [place]. Pt reports that she has been there in the past. Pt is agreeable for CM to reach out to [facility]. CM left a msg w/ Estevan (P#: [phone]) Betsey at [facility]. Pt did mention that she needs to go back home to take care of business before going to [facility]. She reportedly stated that she needs to do her taxes. PT has been ordered and pending. CM to follow. Plan: TBD Date Signed: 01/16/2018 02:45 PM Electronically Signed By:HERRERA Ashley
--- NOTE | 2018-01-16 15:49 | PDMN ---
Medical Necessity Medical necessity: [facility] [id number] Electrolyte Disorder: 62 y/o w/ n/v due to multifactorial issues - etoh, sig electrolyte disturbances, gastritis, and malnutrition, on CIWA protocol. Pt is tachy today HR 108, plt count trending down from 87K to 74K, initial K+2.8, Ca+5.8, mag 0.9. Pt will need to cont with electrolyte replacement, IV ativan, requires another [place] stay. Hx etoh cirrhosis, thrombocytopenia, freq falls, CVA July 2017, afib. Switch to IP status per MD order 01/16 @0258
--- NOTE | 2018-01-16 15:52 | ASMTCMCOM ---
CM Note CM Note Notes: SKYLAR spoke to Brando at [facility] (P#: [phone]). SKYLAR has scheduled for pt to have an intake over the phone at 10AM tomorrow. SKYLAR passed this message onto HEMANTH Ching since pt is currently on the commode. [facility] will be calling pts room tomorrow AM. SKYLAR provided HEMANTH Ching w/ phone number to admissions at [facility] to give to pt. SKYLAR to follow. Date Signed: 01/16/2018 03:51 PM Electronically Signed By:HERRERA Ashley
[2018-01-17] MEDS: THIAMINE HCL 100 MG TAB PO SCH (09:38)
[2018-01-17] MEDS: FOLIC ACID 1 MG TAB PO SCH (09:38)
[2018-01-17] MEDS: MULTIVITAMINS 1 EACH TAB PO SCH (09:38)
[2018-01-17] MEDS ORDERED: MAGNESIUM SULF 1 GM/DEXTROSE 100 ML IV ONE (10:36)
[2018-01-17 12:32] VITALS: BP 126/85
--- NOTE | 2018-01-17 14:07 | PDDCSUM ---
Discharge Summary Discharge Summary: 62 yo F w/ hx of ETOH use disorder, cirrhosis, FTT, frequent falls, AF, and CVA presents admitted with nausea and vomiting, acute intoxication, and generalized weakness. She has had several hospitalization and during each of these a SNF has been recommended but she refuses. This hospitalization was similar in that SNF was recommended and she refused. She says wants to go to a rehab but not from the hospital. She has decisional capacity. Our CM provided lots of references for rehab care if she chooses. For now she is unclear if she wants to continue having ETOH. She has not had Ativan since last night and does not appear to be WD. She is tolerating a regular diet and no longer has nausea. DDX: 1. Nausea, vomiting - Presumably multifactorial from ETOH, significant electrolyte disturbances, likely gastritis, and malnutrition. She feels improved - Continue anti-emetics PRN 2. ETOH use disorder with mild WD symptoms - With mild, early ETOH withdrawal. She has resumed drinking her usual 1/2-1 pint of vodka daily after her recent discharge on 12/28. - CIWA protocol ordered while hospitalized. no Benzo's given at the time of discharge - Daily MVI, folate, thiamine 3. ETOH cirrhosis - LFTs relatively near baseline, complicated by thrombocytopenia. 4. FTT - Complicated by frequent falls, although she denies any since discharge. She denied SNF placement last admission and has done so several times previously. 5. Hypokalemia, hypomagnesemia, hypocalcemia - Secondary to ETOH use, vomiting, and malnutrition. - Replacement protocols were ordered 6. Hx CVA - Infarct in L mesial temporal and occipital lobes in July of 2017. - Continue ASA 7. AF - Not an AC candidate to due to high fall risk. - Continue ASA Exam: NAD AAOX3 RRR CTA B S/NT/ND MEDS: SEE MED REC F/U: WILL F/U WITH HER PCP IN 1-2 WEEKS TOTAL TIME SPENT ON D/C IS 35 MINS
--- NOTE | 2018-01-17 14:37 | ASMTLACE ---
DALIAE Length of stay for Answers: 2 days current admission Acuity / Level of Answers: Yes Care: Did the patient have an inpatient admission? Comorbidities - select Answers: Cerebrovascular disease all that apply (CVA, TIA, aneurysms, vasc ular dementia) History of falls Opioid dependence / Chronic pain Previous myocardial infarction Other Notes: AFib; Hx of DVT and PE # of Emergency department Answers: 12+ visits in the last 6 months Social determinants Answers: History of substance abuse (ETOH, street drugs, prescription drugs, etc.) Mental health diagnosis (anxiety, depression, pers onality disorders, etc.) Score: 27 Date Signed: 01/17/2018 02:37 PM Electronically Signed By:HERRERA Ashley
--- NOTE | 2018-01-17 14:41 | ASMTDCNOTE ---
Case Management Discharge Discharge Order Complete? Answers: Yes Patient to Obtain Answers: Independently Medications Transportation Arranged Answers: Family/Friends EMTALA Complete Answers: No Case Management Transport Answers: No Form Complete Faxed Final Orders Answers: No Agency/Facility Transfer Answers: No Report Printed & Faxed to Receiving Agency Family Notified Answers: No Discharge Comments Notes: Pts case discussed w/ Dr. Zarate. Pt had the phone intake w/ [facility] this AM. Pt reports that she cannot afford it and remembers that it was much cheaper when she went a couple of years ago. Pt reports that AA is helpful and pt goes to a [facility]. Pt plans on driving herself home. CM provided pt w/ the phone number for [employer] [facility]. CM provided pt w/ brochure for [facility]. Referral made to [facility]. Pt is refusing SNF and HC services at this time. CM available for changes. Plan: Independent Date Signed: 01/17/2018 02:40 PM Electronically Signed By:HERRERA Ashley
--- NOTE | 2018-01-17 16:26 | ASMTCMCOM ---
CM Note CM Note Notes: CM completed an APS report on the phone. CM is concerned about pts living situation. Pt could use additional support even though she continues to refuse services and recommendations from [facility]. SKYLAR notified Barbara, oracle database manager about this. Pt will either have a friend drive her home or take a cab home. HEMANTH Prieto has concerns about her ability to drive. Date Signed: 01/17/2018 04:25 PM Electronically Signed By:HERRERA Ashley
== END 2018-01-17 18:10 | disposition home or self-care (01) | DRG 775 ==
LOC: F2W 01-16 01:20 → OBSVTOIN 01-16 13:37
PROVIDERS: ADMIT Student in an Organized Health Care Education/Training Program; ATTEND Student in an Organized Health Care Education/Training Program
DX: F10.220 Alcohol dependence with intoxication, uncomplicated (principal); E46 Unspecified protein-calorie malnutrition; F10.239 Alcohol dependence with withdrawal, unspecified; D69.59 Other secondary thrombocytopenia; K70.30 Alcoholic cirrhosis of liver without ascites; E83.42 Hypomagnesemia; E83.51 Hypocalcemia; E86.0 Dehydration; Z23 Encounter for immunization; R62.7 Adult failure to thrive; K29.70 Gastritis, unspecified, without bleeding; R29.6 Repeated falls; E87.6 Hypokalemia; Y90.2 Blood alcohol level of 40-59 mg/100 ml
CPT/HCPCS: 96374; 97116-GP; 97162-GP; 97166-GO; 97530-GP; 97535-GO; G0008; G0480; G8987-GO-CK; G8988-GO-CI; J0610; J2060; J2405; J3475; J3480

== ENCOUNTER 2018-01-18 07:20 | Emergency (ER) | payer MEDICAID ==
--- NOTE | 2018-01-18 07:42 | EDPHY ---
H & P Stated Complaint: Acute ataxia 1999 yesterday Time Seen by Provider: 01/18/18 07:37 HPI/ROS: CHIEF COMPLAINT: Gait instability HISTORY OF PRESENT ILLNESS: 62-year-old female with alcoholism and failure to thrive presents with gait instability. She was discharged from the hospital yesterday and when she arrived home, she was unable to get into her house. She stayed in her car all night. Yesterday evening, she felt that her gait was more unstable than usual. Associated with dizziness. Symptoms continued this morning. No fall and no recent head injury. No localized weakness or numbness. REVIEW OF SYSTEMS: complete 10 point ROS reviewed and is negative except for the noted elements in the HPI - Personal History Current Tetanus/Diphtheria Vaccine: Yes Tetanus Vaccine Date: 2014 - Medical/Surgical History Hx Asthma: No Hx Chronic Respiratory Disease: No Hx Diabetes: No Hx Cardiac Disease: Yes Hx Renal Disease: No Hx Cirrhosis: No Hx Alcoholism: Yes Hx HIV/AIDS: No Hx Splenectomy or Spleen Trauma: No Other PMH: PMHx: Alcoholism, degenerative disc disease, osteoarthritis, scoliosis, heart murmur, a-fib, C difficile-Dec 2015, hx withdrawal, pancreatitis, R leg fx, [place]. PSHx: tonsillectomy - Social History Smoking Status: Never smoked Alcohol Use: Heavy Drug Use: None Additional Social History: Lives alone - Physical Exam Exam: General Appearance: Alert, cooperative Eyes: Pupils equal and round, no conjunctival pallor or injection, no nystagmus ENT, Mouth: Mucous membranes moist Neck: Normal inspection Respiratory: Lungs are clear to auscultation Cardiovascular: Regular rate and rhythm Gastrointestinal: Abdomen is soft and nontender Neurological: A&O, slow and steady gait, not ataxic, motor and sensory intact Skin: Warm and dry Extremities: Nontender, no pedal edema Psychiatric: Flat affect Constitutional: Initial Vital Signs Temperature (C) 36.3 C 01/18/18 07:27 Heart Rate 106 H 01/18/18 07:27 Respiratory Rate 18 01/18/18 07:27 Blood Pressure 124/97 H 01/18/18 07:27 O2 Sat (%) 96 01/18/18 07:27 O2 Delivery Mode Room Air Allergies/Adverse Reactions: Sulfa (Sulfonamide Antibiotics) Allergy (Mild, Verified 01/18/18 07:30) Rash Home Medications: Medication Instructions Recorded Multivitamins [Multivitamin (*)] 1 each PO DAILY #30 tab 12/28/17 Thiamine HCl [Vitamin B-1] 100 mg PO DAILY #30 tab 12/28/17 Aspirin [Aspirin 81mg (*)] 81 mg PO DAILY #30 tab 01/17/18 Folic Acid [Folic Acid 1 MG (*)] 1 mg PO DAILY #30 tab 01/17/18 Medical Decision Making - Diagnostics Imaging Results: Imaging Impressions Head CT 01/18/18 07:39 Impression: 1. No acute intracranial findings. If symptoms persist and clinical suspicion warrants, consider MRI. 2. Diffuse cerebral atrophy with periventricular and subcortical low attenuation consistent with chronic microvascular ischemic gliosis. 3. Additional findings as above. Findings discussed with STEVE RODRIGUEZ 01/18/2018 at 10:09. Imaging: Discussed imaging studies w/ mountain services manager Radiologist ED Course/Re-evaluation: This patient presents with dizziness and an unstable gait. The ED RN called a stroke alert on patient arrival to triage. I saw and evaluated this patient on arrival. Motor is symmetric and she has an unsteady gait. Onset of symptoms 12 hr ago, not an IV tpa candidate. In review of her past medical record, she has multiple prior ED visits (37 in the past year) for alcohol-related problems. Doubt acute CVA, more likely secondary to ongoing chronic medical problems. CT results discussed with the patient. Dizziness has resolved. Able to walk with a steady gait using a walker. She feels that she is at her baseline. Seen by the gate manager, continues to decline fdc care. Clearly remains a fall risk. Competent to make her own decisions. Will be discharged home. Differential Diagnosis: Altered mental status including but not limited to hypoglycemia, infectious process, electrolyte abnormality, head injury, CVA, and intoxicants. - Data Points Laboratory Results: Laboratory Results 01/18/18 09:23 01/18/18 08:50 01/18/18 01/18/18 01/18/18 09:23 08:50 08:50 WBC REJ REJ RBC TNP TNP Hgb TNP TNP Hct TNP TNP MCV TNP TNP MCH TNP TNP MCHC TNP TNP RDW TNP TNP Plt Count TNP TNP MPV TNP TNP Neut % (Auto) TNP TNP Lymph % (Auto) TNP TNP [place] % (Auto) TNP TNP Eos % (Auto) TNP TNP Baso % (Auto) TNP TNP Nucleat RBC Rel Count TNP TNP Absolute Neuts (auto) TNP TNP Absolute Lymphs (auto) TNP TNP Absolute Monos (auto) TNP TNP Absolute Eos (auto) TNP TNP Absolute Basos (auto) TNP TNP Absolute Nucleated RBC TNP TNP Immature Gran % TNP TNP Immature Gran # TNP TNP Sodium 133 mEq/L L mEq/L (135-145) Potassium 4.6 mEq/L mEq/L (3.3-5.0) Chloride 99 mEq/L mEq/L (97-110) Carbon Dioxide 28 mEq/l mEq/l (22-31) Anion Gap 6 mEq/L L mEq/L (8-16) BUN 6 mg/dL L mg/dL (7-23) Creatinine 0.5 mg/dL L mg/dL (0.6-1.0) Estimated GFR > 60 Glucose 77 mg/dL mg/dL (70-100) Calcium 8.8 mg/dL mg/dL (8.5-10.4) Ethyl Alcohol < 10 mg/dL mg/dL (0-10) Departure - Departure Disposition: Home, Routine, Self-Care Clinical Impression: Dizziness Condition: Fair Instructions: Dizziness (ED) Additional Instructions: Return for worsening symptoms or any concerns. Referrals: Fernandez Gilliland DO [Doctor of Osteopathy] - As per Instructions Romel Ayala MD [Medical Doctor] - As per Instructions (Call to make an appointment.)
[2018-01-18] MEDS ORDERED: NS 1,000 ML IV ONE (09:22)
[2018-01-18 11:12] VITALS: BP 137/95
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
--- NOTE | 2018-01-18 16:57 | ASMTCMCOM ---
CM Note CM Note Notes: This CM received call back from Britt at [facility] . She confirms that she and Corina continue to reach out to patient to offer support and resources but have been unsuccessful thus far. Patient has been contacted by Corina, but patient consistently "yells and pushes them away". Britt assures me they will continue to reach out to patient. I informed Britt of APS referral which was made prior to patient's D/C home yesterday, as well as the message I left with APS this morning after patient's ER visit Date Signed: 01/18/2018 04:43 PM Electronically Signed By:Marlys Kapadia RN
== END 2018-01-18 11:10 | disposition home or self-care (01) ==
DX: R42 Dizziness and giddiness (principal); R26.81 Unsteadiness on feet; F10.20 Alcohol dependence, uncomplicated; R62.7 Adult failure to thrive
CPT/HCPCS: 96374; 97116-GP; 97162-GP; 97166-GO; 97530-GP; 97535-GO; G0008; G0480; G8987-GO-CK; G8988-GO-CI; J0610; J2060; J2405; J3475; J3480

== ENCOUNTER 2018-01-27 16:28 | Emergency (ER) | payer MEDICAID ==
[2018-01-27] MEDS ORDERED: ONDANSETRON 4 MG/2 ML VIAL IVP ONE (16:50)
[2018-01-27] MEDS ORDERED: NS 1,000 ML IV ONE (16:50)
--- NOTE | 2018-01-27 16:56 | EDPHY ---
H & P Stated Complaint: ETOH N/V Time Seen by Provider: 01/27/18 16:38 HPI/ROS: CHIEF COMPLAINT: Vomiting HISTORY OF PRESENT ILLNESS: 62-year-old female with alcoholism presents with vomiting. She drank a quart of alcohol yesterday evening and began vomiting this morning at 9:00 a.m.. Unable to tolerate oral fluids or food today. Feels slightly shaky. No associated abdominal pain, diarrhea or fever. REVIEW OF SYSTEMS: complete 10 point ROS reviewed and is negative except for the noted elements in the HPI - Personal History Current Tetanus Diphtheria and Acellular Pertussis (TDAP): Yes Tetanus Vaccine Date: 2014 - Medical/Surgical History Hx Asthma: No Hx Chronic Respiratory Disease: No Hx Diabetes: No Hx Cardiac Disease: Yes Hx Renal Disease: No Hx Cirrhosis: No Hx Alcoholism: Yes Hx HIV/AIDS: No Hx Splenectomy or Spleen Trauma: No Other PMH: PMHx: Alcoholism, degenerative disc disease, osteoarthritis, scoliosis, heart murmur, a-fib, C difficile-Dec 2015, hx withdrawal, pancreatitis, R leg fx, [place]. PSHx: tonsillectomy - Social History Smoking Status: Never smoked Alcohol Use: Heavy - Physical Exam Exam: General Appearance: Alert, pleasant, nontoxic Eyes: Pupils equal and round, no conjunctival pallor or injection ENT, Mouth: Mucous membranes moist Neck: Normal inspection Respiratory: Lungs are clear to auscultation Cardiovascular: Regular rate and rhythm Gastrointestinal: Abdomen is soft and nontender Neurological: A&O, nonfocal exam Skin: Warm and dry, no rash Extremities: Normal inspection Psychiatric: Mood and affect normal Constitutional: Initial Vital Signs Temperature (C) 37.8 C 01/27/18 16:32 Heart Rate 92 01/27/18 16:32 Respiratory Rate 17 01/27/18 16:32 Blood Pressure 142/85 H 01/27/18 16:32 O2 Sat (%) 98 01/27/18 16:32 O2 Delivery Mode Room Air Allergies/Adverse Reactions: Sulfa (Sulfonamide Antibiotics) Allergy (Mild, Verified 01/27/18 16:29) Rash Home Medications: Medication Instructions Recorded Multivitamins [Multivitamin (*)] 1 each PO DAILY #30 tab 12/28/17 Thiamine HCl [Vitamin B-1] 100 mg PO DAILY #30 tab 12/28/17 Aspirin [Aspirin 81mg (*)] 81 mg PO DAILY #30 tab 01/17/18 Folic Acid [Folic Acid 1 MG (*)] 1 mg PO DAILY #30 tab 01/17/18 Ondansetron Odt [Zofran Odt 4 mg 4 mg PO Q4 PRN #6 tab 01/27/18 (*)] Medical Decision Making ED Course/Re-evaluation: This patient presents with intractable vomiting after heavy alcohol use. The nurses tried to place an IV, but were unable to place an I V. The patient refused further attempts. Zofran 4 mg ODT given. She felt much better after Zofran and was able to tolerate oral fluids well. Abdomen remained soft and nontender. She will continue oral rehydration. Follow up with PCP. Differential Diagnosis: Differential diagnosis includes though it is not limited to appendicitis, cholecystitis, diverticulitis, pyelonephritis, bowel perforation, small bowel obstruction. - Data Points Laboratory Results: Laboratory Results 01/27/18 17:15 01/27/18 17:10 01/27/18 01/27/18 17:15 17:10 WBC REJ RBC REJ Hgb REJ Hct REJ MCV REJ MCH REJ MCHC REJ RDW REJ Plt Count REJ MPV REJ Neut % (Auto) REJ Lymph % (Auto) REJ [place] % (Auto) REJ Eos % (Auto) REJ Baso % (Auto) REJ Nucleat RBC Rel Count REJ Absolute Neuts (auto) REJ Absolute Lymphs (auto) REJ Absolute Monos (auto) REJ Absolute Eos (auto) REJ Absolute Basos (auto) REJ Absolute Nucleated RBC REJ Immature Gran % REJ Immature Gran # REJ Sodium 131 mEq/L L mEq/L (135-145) Potassium 4.7 mEq/L mEq/L (3.3-5.0) Chloride 103 mEq/L mEq/L (97-110) Carbon Dioxide 18 mEq/l L mEq/l (22-31) Anion Gap 10 mEq/L mEq/L (8-16) BUN 11 mg/dL mg/dL (7-23) Creatinine 0.5 mg/dL L mg/dL (0.6-1.0) Estimated GFR > 60 Glucose 99 mg/dL mg/dL (70-100) Calcium 8.4 mg/dL L mg/dL (8.5-10.4) Total Bilirubin 3.1 mg/dL H mg/dL (0.1-1.4) Conjugated Bilirubin 1.3 mg/dL H mg/dL (0.0-0.5) Unconjugated Bilirubin 1.8 mg/dL H mg/dL (0.0-1.1) AST 118 IU/L H IU/L (14-46) ALT 38 IU/L IU/L (9-52) Alkaline Phosphatase 166 IU/L H IU/L (38-126) Total Protein 6.1 g/dL L g/dL (6.3-8.2) Albumin 3.4 g/dL L g/dL (3.5-5.0) Lipase 138 IU/L IU/L (23-300) Specimen Hemolysis 145 Medications Given: Discontinued Medications Sodium Chloride (Ns) 1,000 mls @ 0 mls/hr IV EDNOW ONE; Wide Open PRN Reason: Protocol Stop: 01/27/18 16:51 Last Admin: 01/27/18 17:27 Dose: Not Given Ondansetron HCl (Zofran) 4 mg IVP EDNOW ONE Stop: 01/27/18 16:51 Last Admin: 01/27/18 17:27 Dose: Not Given Ondansetron HCl (Zofran Odt 4 Mg Prepack#2) 1 btl TAKEHOME EDNOW ONE Stop: 01/27/18 18:02 Last Admin: 01/27/18 18:11 Dose: Not Given Departure - Departure Disposition: Home, Routine, Self-Care Clinical Impression: Vomiting Qualifiers: Vomiting type: cyclical vomiting Vomiting Intractability: non-intractable Nausea presence: with nausea Qualified Code(s): G43.A0 - Cyclical vomiting, not intractable Condition: Good Instructions: Ondansetron (By mouth), Acute Nausea and Vomiting (ED) Additional Instructions: 1. Clear liquids for 24 hours. 2. Advance diet as tolerated. I suggest the BRAT diet to start: bananas, rice, applesauce and toast. 3. Return for worsening symptoms, persistent vomiting, abdominal pain, any concerns. 4. Take Zofran 1 tablet under the tongue every 6 hr as needed for nausea. Referrals: Arnaldo Vazquez MD [[facility] Primary Care Provider] - As per Instructions Prescriptions: Ondansetron Odt [Zofran Odt 4 mg (*)] 4 mg PO Q4 PRN #6 tab PRN Reason: Nausea
[2018-01-27] MEDS ORDERED: ONDANSETRON DISINTEGRATING 4 MG TAB ONE ×2 (17:05→17:22)
[2018-01-27 18:00] VITALS: BP 144/90
[2018-01-27] MEDS ORDERED: ONDANSETRON 4MG PREPACK#2 BTL TAKEHOME ONE (18:01)
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
== END 2018-01-27 18:11 | disposition home or self-care (01) ==
DX: R11.10 Vomiting, unspecified (principal); F10.20 Alcohol dependence, uncomplicated
CPT/HCPCS: J2405

== ENCOUNTER 2018-02-06 12:52 | Emergency (ER) | payer MEDICAID ==
[2018-02-06 12:58] VITALS: BP 125/96
--- NOTE | 2018-02-06 13:41 | EDPHY ---
H & P Stated Complaint: Right foot pain Time Seen by Provider: 02/06/18 13:30 HPI/ROS: CHIEF COMPLAINT: Right foot pain HISTORY OF PRESENT ILLNESS: The patient is a 62-year-old female who comes to the emergency department complaining of right foot pain. She is alcoholic. She states she was drinking this morning and then fell down the stairs. She states she had pain to her right foot. She thinks she may have hit her head but does not have any pain. No loss of consciousness. No neck pain. She wants to have an x-ray of her foot but declines other imaging including her head. She drove herself here and walked into the emergency department. Severity: Moderate Modifying factors: None REVIEW OF SYSTEMS: Constitutional: denies: chills, fever, recent illness, recent injury EENTM: denies: blurred vision, double vision, nose congestion Respiratory: denies: cough, shortness of breath Cardiac: denies: chest pain, irregular heart rate, lightheadedness, palpitations Gastrointestinal/Abdominal: denies: abdominal pain, diarrhea, nausea, vomiting, blood streaked stools Genitourinary: denies: dysuria, frequency, hematuria, pain Musculoskeletal: See HPI Skin: denies: lesions, rash, jaundice, bruising Neurological: denies: headache, numbness, paresthesia, tingling, dizziness, weakness Hematologic/Lymphatic: denies: blood clots, easy bleeding, easy bruising Immunologic/allergic: denies: HIV/AIDS, transplant 10 systems reviewed and negative except as noted EXAM: GENERAL: Well-appearing, well-nourished and in no acute distress. HEAD: Atraumatic, normocephalic. EYES: Pupils equal round and reactive to light, extraocular movements intact, sclera anicteric, conjunctiva are normal. ENT: TMs normal, nares patent, oropharynx clear without exudates. Moist mucous membranes. NECK: Normal range of motion, supple without lymphadenopathy or JVD. LUNGS: Breath sounds clear to auscultation bilaterally and equal. No wheezes rales or rhonchi. HEART: Regular rate and rhythm without murmurs, rubs or gallops. ABDOMEN: Soft, nontender, normoactive bowel sounds. No guarding, no rebound. No masses appreciated. BACK: No CVA tenderness, no spinal tenderness, step-offs or deformities EXTREMITIES: Right foot and ankle pain, no deformity or swelling. No tenderness. ambulates without difficulty. NEUROLOGICAL: Cranial nerves II through XII grossly intact. Normal speech, normal gait. 5/5 strength, normal movement in all extremities, normal sensation , normal reflexes PSYCH: Normal mood, normal affect. SKIN: Warm, dry, normal turgor, no visible rashes or lesions. Source: Patient Exam Limitations: No limitations - Personal History Current Tetanus Diphtheria and Acellular Pertussis (TDAP): Yes Tetanus Vaccine Date: 2014 - Medical/Surgical History Hx Asthma: No Hx Chronic Respiratory Disease: No Hx Diabetes: No Hx Cardiac Disease: Yes Hx Renal Disease: No Hx Cirrhosis: No Hx Alcoholism: Yes Hx HIV/AIDS: No Hx Splenectomy or Spleen Trauma: No Other PMH: PMHx: Alcoholism, degenerative disc disease, osteoarthritis, scoliosis, heart murmur, a-fib, C difficile-Dec 2015, hx withdrawal, pancreatitis, R leg fx, [place]. PSHx: tonsillectomy - Social History Smoking Status: Never smoked Alcohol Use: Heavy Constitutional: Initial Vital Signs Temperature (C) 36.6 C 02/06/18 12:53 Heart Rate 104 H 02/06/18 12:53 Respiratory Rate 18 02/06/18 12:53 Blood Pressure 125/96 H 02/06/18 12:53 O2 Sat (%) 94 02/06/18 12:53 O2 Delivery Mode Room Air Allergies/Adverse Reactions: Sulfa (Sulfonamide Antibiotics) Allergy (Mild, Verified 01/27/18 16:29) Rash Home Medications: Medication Instructions Recorded Multivitamins [Multivitamin (*)] 1 each PO DAILY #30 tab 12/28/17 Thiamine HCl [Vitamin B-1] 100 mg PO DAILY #30 tab 12/28/17 Aspirin [Aspirin 81mg (*)] 81 mg PO DAILY #30 tab 01/17/18 Folic Acid [Folic Acid 1 MG (*)] 1 mg PO DAILY #30 tab 01/17/18 Ondansetron Odt [Zofran Odt 4 mg 4 mg PO Q4 PRN #6 tab 01/27/18 (*)] Medical Decision Making - Diagnostics Imaging: Discussed imaging studies w/ yard caller Radiologist ED Course/Re-evaluation: 1:50 p.m. we discussed the patient's foot x-ray. She is now requesting a CT scan of her head because she says she is developing headache. 2:30 p.m. We discussed the patient's head CT. She is reassured. She is eager to go home. Headache is better. Differential Diagnosis: Partial list of the Differential diagnosis considered include but were not limited to; alcohol intoxication, withdrawal, intracranial injury, foot injury and although unlikely based on the history and physical exam, I also considered dislocation, neck injury, CVA. I discussed these differential diagnoses and the plan with the patient as well as the usual and expected course. The patient understands that the diagnosis is provisional and that in medicine we are not always correct and that further workup is often warranted. Usual and customary warnings were given. All of the patient's questions were answered. The patient was instructed to return to the emergency department should the symptoms at all worsen or return, otherwise to followup with the physician as we discussed. Departure - Departure Disposition: Home, Routine, Self-Care Clinical Impression: Alcohol abuse, Right foot pain Condition: Fair Instructions: Alcohol Use Disorder (ED) Referrals: NONE *PRIMARY CARE P,. [Primary Care Provider] - As per Instructions
== END 2018-02-06 14:49 | disposition home or self-care (01) ==
DX: M79.671 Pain in right foot (principal); F10.129 Alcohol abuse with intoxication, unspecified; W10.8XXA Fall (on) (from) other stairs and steps, initial encounter; Y92.9 Unspecified place or not applicable

== ENCOUNTER 2018-02-08 20:44 | Inpatient (IN) | payer MEDICAID ==
[2018-02-08] MEDS ORDERED: LORazepam 1 MG TAB PO PRN (21:28)
--- NOTE | 2018-02-08 21:28 | EDPHY ---
H & P Smoking Status: Never smoked Time Seen by Provider: 02/08/18 21:18 HPI/ROS: CHIEF COMPLAINT: "Alcohol withdrawal" HISTORY OF PRESENT ILLNESS: The patient is a 62-year-old female with a history of multiple medical problems and multiple visits to the emergency department reports that she is"in alcohol withdrawal."Patient states that she drinks a pt of vodka daily. Last drink was 9:00 a.m.. She began to feel shaky with nausea and vomiting. She has had numerous episodes of nonbloody emesis. Patient denies any fevers or chills. No chest pain or shortness of breath. No abdominal pain. REVIEW OF SYSTEMS: 10 systems were reveiwed and are negative with the exception of the elements mentioned in the history of present illness. (Steffany Corral) Past Medical/Surgical History: Includes alcohol abuse, degenerative disc disease, osteoarthritis, scoliosis, atrial fibrillation, C diff, pancreatitis, acute ID Past surgical history: Tonsillectomy Social history: Patient drinks alcohol regularly. She denies drug use. She does not smoke. (Steffany Corral) Physical Exam: Vitals noted. 37.2, 147/98, 117, 18, 98% on room air GENERAL: Mild acute distress, alert. HEENT: Eyes normal to inspection, normal pharynx, dry mucous membranes NECK: Normal, supple. RESPIRATORY: Clear to auscultation bilaterally, no rales, rhonchi or wheezing. CVS: Tachycardia with regular, no rubs, murmurs, or gallops. ABDOMEN: Soft, nontender, nondistended, no organomegaly. Benign BACK: Normal to inspection, no CVA tenderness. SKIN: Normal color, no rash, warm, dry. No pallor. EXTREMITIES: No pedal edema, no calf tenderness, no Homans sign or cords, no joint swelling. NEURO/PSYCH: Alert and oriented, normal mood and affect, normal motor sensory exam. Tongue tremor. Hand tremor. No obvious cranial nerve deficit. (Steffany Corral) Constitutional: Initial Vital Signs Temperature (C) 37.2 C 02/08/18 20:59 Heart Rate 117 H 02/08/18 20:59 Respiratory Rate 18 02/08/18 20:59 Blood Pressure 147/98 H 02/08/18 20:59 O2 Sat (%) 98 02/08/18 20:59 O2 Delivery Mode Room Air Allergies/Adverse Reactions: Sulfa (Sulfonamide Antibiotics) Allergy (Mild, Verified 02/08/18 21:01) Rash Home Medications: Medication Instructions Recorded Multivitamins [Multivitamin (*)] 1 each PO DAILY #30 tab 12/28/17 Thiamine HCl [Vitamin B-1] 100 mg PO DAILY #30 tab 12/28/17 Aspirin [Aspirin 81mg (*)] 81 mg PO DAILY #30 tab 01/17/18 Folic Acid [Folic Acid 1 MG (*)] 1 mg PO DAILY #30 tab 01/17/18 Ondansetron Odt [Zofran Odt 4 mg 4 mg PO Q4 PRN #6 tab 01/27/18 (*)] Medical Decision Making ED Course/Re-evaluation: In the emergency department I discussed possible etiologies with the patient. I answered all her questions. IV was placed. Laboratory studies were obtained. Patient given normal saline 1 L IV for hydration. She is given medications based on CIWA score. Patient was treated with Ativan IV per protocol Patient's white count was 6.1. Hematocrit was low at 36.6. Platelet count was 100. Chemistry panel was remarkable for slightly low sodium 133. 2300: Pt is signed out to Dr. Gomez at change of shift. (Steffany Corral ) 0700: Patient ambulated well throughout the emergency room. She initially was tired throughout the evening and slept most leaving the emergency room. She did receive IV fluids was placed on CIWA protocol for alcohol draw. She did receive IV Ativan. This caused her to be sleepy throughout the evening. She slept. No complications. She ambulated well with a steady gait. She is requesting go to detox. [facility]. (Jerod Gomez) Differential Diagnosis: My differential includes but is not limited to alcohol withdrawal, alcohol abuse , electrolyte abnormality, sugar abnormality, anxiety, dehydration (Steffany Corral) - Data Points Laboratory Results: Laboratory Results 02/08/18 21:40 02/08/18 21:40 02/08/18 02/08/18 21:40 21:40 WBC 6.11 10^3/uL 10^3/uL (3.80-9.50) RBC 3.66 10^6/uL L 10^6/uL (4.18-5.33) Hgb 12.4 g/dL L g/dL (12.6-16.3) Hct 36.6 % L % (38.0-47.0) MCV 100.0 fL H fL (81.5-99.8) MCH 33.9 pg pg (27.9-34.1) MCHC 33.9 g/dL g/dL (32.4-36.7) RDW 14.0 % % (11.5-15.2) Plt Count 100 10^3/uL L 10^3/uL (150-400) MPV 10.7 fL fL (8.7-11.7) Neut % (Auto) 90.6 % H % (39.3-74.2) Lymph % (Auto) 4.7 % L % (15.0-45.0) Sumner % (Auto) 4.3 % L % (4.5-13.0) Eos % (Auto) 0.0 % L % (0.6-7.6) Baso % (Auto) 0.2 % L % (0.3-1.7) Nucleat RBC Rel Count 0.0 % % (0.0-0.2) Absolute Neuts (auto) 5.54 10^3/uL 10^3/uL (1.70-6.50) Absolute Lymphs (auto) 0.29 10^3/uL L 10^3/uL (1.00-3.00) Absolute Monos (auto) 0.26 10^3/uL L 10^3/uL (0.30-0.80) Absolute Eos (auto) 0.00 10^3/uL L 10^3/uL (0.03-0.40) Absolute Basos (auto) 0.01 10^3/uL L 10^3/uL (0.02-0.10) Absolute Nucleated RBC 0.00 10^3/uL 10^3/uL (0-0.01) Immature Gran % 0.2 % % (0.0-1.1) Immature Gran # 0.01 10^3/uL 10^3/uL (0.00-0.10) RBC/WBC/PLT Morphology TNP Platelet Estimate TNP Sodium 133 mEq/L L mEq/L (135-145) Potassium 4.6 mEq/L mEq/L (3.3-5.0) Chloride 95 mEq/L L mEq/L (97-110) Carbon Dioxide 16 mEq/l L mEq/l (22-31) Anion Gap 22 mEq/L H mEq/L (6-14) BUN 15 mg/dL mg/dL (7-23) Creatinine 0.7 mg/dL mg/dL (0.6-1.0) Estimated GFR > 60 Glucose 86 mg/dL mg/dL (70-100) Calcium 9.2 mg/dL mg/dL (8.5-10.4) Salicylates < 1.0 mg/dL L mg/dL (2.0-20.0) Acetaminophen < 10 mcg/mL L mcg/mL (10-30) Ethyl Alcohol < 10 mg/dL mg/dL (0-10) Medications Given: Lorazepam (Ativan Injection) 0 mg IVP Q1H PRN; Protocol PRN Reason: Alcohol Withdrawal w/IV access Stop: 02/09/18 09:28 Last Admin: 02/08/18 22:00 Dose: 2 mg Departure - Departure Disposition: Home, Routine, Self-Care Clinical Impression: Alcohol withdrawal Qualifiers: Complication of substance-induced condition: uncomplicated Qualified Code(s): F10.230 - Alcohol dependence with withdrawal, uncomplicated Condition: Good Instructions: Alcohol Withdrawal (ED) Additional Instructions: Slowly decrease your alcohol intake. Return with worsening symptoms or any other concerns. Referrals: Kristen Coleman DO [Doctor of Osteopathy] - 5-7 days, call for appt.
[2018-02-08] MEDS: LORazepam 2 MG/ML INJ IVP PRN ×2 (21:56→22:00)
[2018-02-08 22:00] LABS: PLATELET COUNT 100 10^3/uL (150-400)
[2018-02-09] MEDS ORDERED: NS 1,000 ML IV ONE (08:27)
[2018-02-09] MEDS ORDERED: FLUMAZENIL 0.5 MG/5 ML MDV IVP PRN (08:55)
[2018-02-09] MEDS ORDERED: MAG HYDROX/AL HYDROX/SIMETH 30 ML UDCUP PO PRN (09:01)
[2018-02-09] MEDS ORDERED: ONDANSETRON 4 MG/2 ML VIAL IVP PRN (09:07)
[2018-02-09] MEDS ORDERED: ONDANSETRON DISINTEGRATING 4 MG TAB PO PRN (09:07)
[2018-02-09] MEDS ORDERED: THIAMINE HCL 100 MG TAB PO SCH (09:15)
[2018-02-09] MEDS: LORazepam 2 MG/ML INJ IVP PRN (09:21)
[2018-02-09] MEDS: THIAMINE HCL 500 MG in NS 100 ML IV SCH (10:34)
[2018-02-09] MEDS: FOLIC ACID 1 MG TAB PO SCH ×3 (11:20→12:45)
[2018-02-09] MEDS: FAMOTIDINE 20 MG TAB PO SCH ×3 (11:20→20:40)
[2018-02-09] MEDS: MULTIVITAMINS 1 EACH TAB PO SCH ×3 (11:20→12:45)
--- NOTE | 2018-02-09 11:25 | ASMTCMCOM ---
CM Note CM Note Notes: CM reviewed chart for d/c planning. Pt is a 62 y/o female who came to the ED reporting that she was going through withdrawl from alcohol. She is a chronic alcoholic with multiple ED visits. Her last drink had been at 9:00 that morning; she normal drinks 1 pint of vodka a day. She was initially d/c'ed home from the ED; she returned unable to ambulate and it was deemed unsfafe to send her home. Pt is presently asleep; when she is awake CM will speak to her about potential resources for treating her alcoholism and a CAGE will be done. CM to follow. D/C Plan: TBD Date Signed: 02/09/2018 11:25 AM Electronically Signed By:Karolina Avalos
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
--- NOTE | 2018-02-09 15:21 | PDMN ---
Medical Necessity Medical necessity: Pt meets IP criteria per & MAGDIEL [id number]; est los >2 mn for eval/tx of acute alcohol withdrawal w/tachycardia & gait instability; requiring further monitoring, follow-up labs, CIWA protocol & therapies; comorbid AFIB, ETOH dependence w/cirrhosis, pancreatitis & withdrawal seizures, frequent falls , thrombocytopenia, anemia, DVT/PE, cardiac arrest r/t aspiration, CVA; per H&P & order 02/09/18
[2018-02-09] MEDS ORDERED: MAGNESIUM SULF 2 GM/WATER 50 ML IV ONE (18:40)
[2018-02-10] MEDS: LORazepam 2 MG/ML INJ IVP PRN ×2 (00:44→23:30)
[2018-02-10 05:49] LABS: PLATELET COUNT 39 10^3/uL (150-400)
[2018-02-10] MEDS: FAMOTIDINE 20 MG TAB PO SCH (07:24)
[2018-02-10] MEDS: THIAMINE HCL 500 MG in NS 100 ML IV SCH (07:24)
[2018-02-10] MEDS: MULTIVITAMINS 1 EACH TAB PO SCH ×2 (07:24→20:06)
[2018-02-10] MEDS: FOLIC ACID 1 MG TAB PO SCH (07:24)
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
[2018-02-10] MEDS ORDERED: POTASSIUM Cl (KCl) 40 MEQ in NS 1,000 ML IV SCH (09:00)
[2018-02-10] MEDS ORDERED: MAGNESIUM SULF 2 GM/WATER 50 ML IV ONE (12:08)
[2018-02-10] MEDS: LEVOTHYROXINE 100 MCG TAB PO SCH (12:14)
[2018-02-10] MEDS: SUCRALFATE 1 GM TAB PO SCH ×2 (22:10→22:59)
[2018-02-11] MEDS: LORazepam 2 MG/ML INJ IVP PRN ×4 (02:03→23:04)
[2018-02-11 05:02] LABS: PLATELET COUNT 36 10^3/uL (150-400)
[2018-02-11] MEDS: LEVOTHYROXINE 100 MCG TAB PO SCH (05:33)
[2018-02-11] MEDS: SUCRALFATE 1 GM TAB PO SCH ×4 (07:48→21:46)
[2018-02-11] MEDS: FOLIC ACID 1 MG TAB PO SCH (07:51)
[2018-02-11] MEDS: MULTIVITAMINS 1 EACH TAB PO SCH (07:52)
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
[2018-02-11] MEDS: THIAMINE HCL 500 MG in NS 100 ML IV SCH (08:48)
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
--- NOTE | 2018-02-11 09:10 | ASMTLACE ---
JAYSON Acuity / Level of Answers: Yes Care: Did the patient have an inpatient admission? Comorbidities - select Answers: History of falls all that apply Opioid dependence / Chronic pain Previous myocardial infarction Other Notes: AFib # of Emergency department Answers: 12+ visits in the last 6 months Social determinants Answers: History of substance abuse (ETOH, street drugs, prescription drugs, etc.) Mental health diagnosis (anxiety, depression, pers onality disorders, etc.) Score: 24 Date Signed: 02/11/2018 09:10 AM Electronically Signed By:Sherri Bolanos
[2018-02-11] MEDS ORDERED: PROTOCOL MAGNESIUM 1 DOSE IV PRN (13:07)
[2018-02-11] MEDS ORDERED: PROTOCOL POTASSIUM 1 DOSE MISC PRN (13:07)
--- NOTE | 2018-02-11 14:28 | ASMTCMCOM ---
CM Note CM Note Notes: This is patient's 31st visit to [facility] in 2018. Case Management has worked extensively with her and myriad outside agencies to try and help her nurse healthcare manager her life outside of the hospital. She has fired or been fired by upwards of one dozen home health agencies. She has refused SNF and EtOh treatment. Support from friends and family has whittled away to nothing. WATER ATTENDANT has evaluated patient and recommended SNF. I have left a message with Ethics to become involved. The nurse healthcare manager and director of Case Management have also been notified. I have also left a message with [facility] Involuntary Commitment program to see if this is an option. Case Management will follow as we are able. Date Signed: 02/11/2018 02:28 PM Electronically Signed By:Jackie Magana RN
[2018-02-11] MEDS ORDERED: POTASSIUM CL 10 MEQ TAB PO ONE ×2 (15:25→22:38)
[2018-02-11] MEDS ORDERED: MAGNESIUM SULF 1 GM/DEXTROSE 100 ML IV ONE (16:30)
[2018-02-12 04:49] LABS: INR 1.11 (0.83-1.16); PROTIME(PATIENT) 14.5 SEC (12.0-15.0)
[2018-02-12] MEDS: LEVOTHYROXINE 100 MCG TAB PO SCH (04:50)
[2018-02-12 04:55] LABS: PLATELET COUNT 31 10^3/uL (150-400)
[2018-02-12] MEDS: SUCRALFATE 1 GM TAB PO SCH ×4 (09:18→20:55)
[2018-02-12] MEDS: THIAMINE HCL 100 MG TAB PO SCH (09:19)
[2018-02-12] MEDS: MULTIVITAMINS 1 EACH TAB PO SCH (09:19)
[2018-02-12] MEDS: FOLIC ACID 1 MG TAB PO SCH (09:20)
[2018-02-12] MEDS ORDERED: POTASSIUM CL 10 MEQ TAB PO ONE ×3 (09:22→20:33)
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
--- NOTE | 2018-02-12 12:01 | ASMTCMCOM ---
CM Note CM Note Notes: JOSE Issa RN met with patient today. Some of her recommendations include patient starting an antidepressant, working with [facility] ([phone]), and working with a behavioral home health RN (this has been attempted). Minna will consult w Dr Felton in psychiatry re: medication. Barbara, manger of , is coordinating a meeting with other interested parties, including [facility] legal team title insurance sales representative, Ulices Weems, and other providers. We will continue to follow. Date Signed: 02/12/2018 12:00 PM Electronically Signed By:Jackie Magana RN
--- NOTE | 2018-02-12 15:12 | PDCONSULT ---
Slot Floor Person Note: Hematology/oncology consultation note Reason for consultation: Thrombocytopenia History of present illness This is a 62-year-old female with history of alcohol abuse who was admitted on 02/09/2018 for withdrawal from alcohol who we are seeing in consultation for thrombocytopenia. She has a longstanding history of alcoholism and drinks over 1 pint of vodka in a day. She was admitted due to symptoms of alcohol withdrawal, nausea and vomiting. She is a poor historian and cannot provide a significant history to me today. We were consulted for further evaluation of thrombocytopenia. In viewing her previous CBCs she has had previous episodes of fluctuating platelet counts from the 40 to 100 range. She denies any bleeding symptoms although again she is not very reliable. The remainder of the history was obtained from the medical chart. Past medical history Atrial fibrillation Chronic alcoholism History of C diff colitis Anemia History pancreatitis Past surgical history Tib-fib fracture repair 2017 Family history Mother had esophageal cancer in her 50s. Social history She drinks 1 pt of vodka in a day. She lives alone here in [place]. She does not smoke. Review of systems A 12 point review of systems could not be obtained she does not answer questions and leucovorin appropriately. Allergies: Sulfa Generic Name Dose Route Start Last Admin Trade Name Freq PRN Reason Stop Dose Admin Folic Acid 1 mg 02/09/18 09:15 02/12/18 09:20 Folic Acid PO 08/08/18 09:14 1 mg DAILY ZHANE Administration Levothyroxine Sodium 100 mcg 02/10/18 09:15 02/12/18 04:50 Synthroid PO 08/09/18 09:14 100 mcg DAILY AT 6AM ZHANE Administration Lorazepam 0 mg 02/09/18 08:55 02/11/18 23:04 Ativan Injection IVP 08/08/18 08:54 2 mg Q1H PRN Administration Alcohol Withdrawal w/IV access Protocol Multivitamins 1 each 02/09/18 09:15 02/12/18 09:19 Tab-A-Gladys PO 08/08/18 09:14 1 each DAILY ZHANE Administration Sucralfate 1 gm 02/10/18 17:30 02/12/18 12:00 Carafate PO 08/09/18 17:29 1 gm ACHS ZHANE Administration Thiamine HCl 100 mg 02/12/18 09:00 02/12/18 09:19 Vitamin B-1 PO 08/11/18 08:59 100 mg DAILY ZHANE Administration Discontinued Medications Generic Name Dose Route Start Last Admin Trade Name Farhan PRN Reason Stop Dose Admin Famotidine 20 mg 02/09/18 09:15 02/10/18 07:24 Pepcid PO 08/08/18 09:14 20 mg BID ZHANE Administration Sodium Chloride 1,000 mls @ 0 mls/hr 02/09/18 08:27 02/09/18 09:20 Ns IV 02/09/18 08:28 1,000 mls ONCE ONE Administration Wide Open Thiamine HCl 500 mg/ Sodium 105 mls @ 210 mls/hr 02/09/18 09:00 02/11/18 08: 48 Chloride IV 02/12/18 08:59 105 mls DAILY ZHANE Administration Magnesium Sulfate 50 mls @ 50 mls/hr 02/09/18 18:40 02/09/18 20:40 Magnesium Sulf 2 Gm (Premix) IV 02/09/18 19:39 50 mls ONCE ONE Administration Cefazolin Sodium/Dextrose 50 mls @ 200 mls/hr 02/10/18 11:00 02/12/18 12:01 Ancef 1 Gm (Premix) IV 03/12/18 10:59 Not Given Q8H ZHANE Protocol Magnesium Sulfate 50 mls @ 50 mls/hr 02/10/18 12:08 02/10/18 14:21 Magnesium Sulf 2 Gm (Premix) IV 02/10/18 13:07 50 mls ONCE ONE Administration Lorazepam 0 mg 02/08/18 21:28 02/09/18 09:21 Ativan Injection IVP 02/09/18 09:28 2 mg Q1H PRN Administration Alcohol Withdrawal w/IV access Protocol Multivitamins 1 each 02/09/18 09:15 02/10/18 20:06 Tab-A-Gladys PO 08/08/18 09:14 Not Given DAILY ZHANE Potassium Chloride 10 - 40 meq 02/11/18 15:25 02/11/18 15:49 Klor-Con PO 02/11/18 15:26 40 meq ONCE ONE Administration Protocol Potassium Chloride 10 - 40 meq 02/11/18 22:38 02/11/18 22:57 Klor-Con PO 02/11/18 22:39 40 meq ONCE ONE Administration Protocol Potassium Chloride 10 meq 02/12/18 11:45 02/12/18 12:00 Klor-Con PO 02/12/18 11:46 10 meq ONCE ONE Administration Protocol Temp Pulse Resp BP Pulse Ox 97.2 C H 92 16 130/88 H 97 02/12/18 12:00 02/12/18 12:00 02/12/18 12:00 02/12/18 12:00 02/12/18 12:00 General: Conversant, awake, follows commands, HEENT: Extraocular movements are intact pupils equal round reactive like oropharynx is clear Cardiovascular: Regular rate and rhythm no murmurs gallops or rubs Pulmonary: Clear to auscultation bilaterally GI: Soft nontender nondistended bowel sounds, hepatosplenomegaly appreciated Skin: Multiple bruising noted on the upper extremities Neuro: Moving all extremities. Psych: Slow to answer questions. WBC 2.45 10^3/uL (3.80-9.50) L 02/11/18 04:49 RBC 3.00 10^6/uL (4.18-5.33) L 02/11/18 04:49 Hgb 10.4 g/dL (12.6-16.3) L 02/12/18 04:15 Hct 30.5 % (38.0-47.0) L 02/12/18 04:15 MCV 99.0 fL (81.5-99.8) 02/11/18 04:49 MCH 33.7 pg (27.9-34.1) 02/11/18 04:49 MCHC 34.0 g/dL (32.4-36.7) 02/11/18 04:49 RDW 13.7 % (11.5-15.2) 02/11/18 04:49 Plt Count 31 10^3/uL (150-400) L 02/12/18 04:15 MPV 11.1 fL (8.7-11.7) 02/10/18 05:03 Neut % (Auto) 57.8 % (39.3-74.2) 02/10/18 05:03 Lymph % (Auto) 34.9 % (15.0-45.0) 02/10/18 05:03 [place] % (Auto) 6.5 % (4.5-13.0) 02/10/18 05:03 Eos % (Auto) 0.4 % (0.6-7.6) L 02/10/18 05:03 Baso % (Auto) 0.4 % (0.3-1.7) 02/10/18 05:03 Nucleat RBC Rel Count 0.0 % (0.0-0.2) 02/10/18 05:03 Absolute Neuts (auto) 1.59 10^3/uL (1.70-6.50) L 02/10/18 05:03 Absolute Lymphs (auto) 0.96 10^3/uL (1.00-3.00) L 02/10/18 05:03 Absolute Monos (auto) 0.18 10^3/uL (0.30-0.80) L 02/10/18 05:03 Absolute Eos (auto) 0.01 10^3/uL (0.03-0.40) L 02/10/18 05:03 Absolute Basos (auto) 0.01 10^3/uL (0.02-0.10) L 02/10/18 05:03 Absolute Nucleated RBC 0.00 10^3/uL (0-0.01) 02/10/18 05:03 Immature Gran % 0.0 % (0.0-1.1) 02/10/18 05:03 Immature Gran # 0.00 10^3/uL (0.00-0.10) 02/10/18 05:03 RBC/WBC/PLT Morphology TNP 02/08/18 21:40 Platelet Estimate DECREASED (ADEQ) L 02/12/18 04:15 PT 14.5 SEC (12.0-15.0) 02/12/18 04:15 INR 1.11 (0.83-1.16) 02/12/18 04:15 APTT 28.6 SEC (23.0-38.0) 02/12/18 04:15 Sodium 132 mEq/L (135-145) L 02/12/18 04:15 Potassium 3.8 mEq/L (3.3-5.0) 02/12/18 04:15 Chloride 100 mEq/L (97-110) 02/12/18 04:15 Carbon Dioxide 25 mEq/l (22-31) 02/12/18 04:15 Anion Gap 7 mEq/L (6-14) 02/12/18 04:15 BUN 8 mg/dL (7-23) 02/12/18 04:15 Creatinine 0.5 mg/dL (0.6-1.0) L 02/12/18 04:15 Estimated GFR > 60 02/12/18 04:15 Glucose 105 mg/dL (70-100) H 02/12/18 04:15 Calcium 8.6 mg/dL (8.5-10.4) 02/12/18 04:15 Magnesium 1.5 mg/dL (1.6-2.3) L 02/12/18 04:15 Total Bilirubin 2.5 mg/dL (0.1-1.4) H 02/12/18 04:15 Conjugated Bilirubin 1.2 mg/dL (0.0-0.5) H 02/12/18 04:15 Unconjugated Bilirubin 1.3 mg/dL (0.0-1.1) H 02/12/18 04:15 AST 76 IU/L (14-46) H 02/12/18 04:15 ALT 38 IU/L (9-52) 02/12/18 04:15 Alkaline Phosphatase 176 IU/L (38-126) H 02/12/18 04:15 Total Protein 5.3 g/dL (6.3-8.2) L 02/12/18 04:15 Albumin 2.9 g/dL (3.5-5.0) L 02/12/18 04:15 TSH 27.300 uIU/mL (0.465-4.680) H 02/09/18 20:10 Urine Color YELLOW 02/10/18 07:30 Urine Appearance CLEAR 02/10/18 07:30 Urine pH 7.0 (5.0-7.5) 02/10/18 07:30 Ur Specific Nichols 1.005 (1.002-1.030) 02/10/18 07:30 Urine Protein NEGATIVE (NEGATIVE) 02/10/18 07:30 Urine Ketones TRACE (NEGATIVE) H 02/10/18 07:30 Urine Blood NEGATIVE (NEGATIVE) 02/10/18 07:30 Urine Nitrate NEGATIVE (NEGATIVE) 02/10/18 07:30 Urine Bilirubin NEGATIVE (NEGATIVE) 02/10/18 07:30 Urine Urobilinogen 4.0 EU (0.2-1.0) H 02/10/18 07:30 Ur Leukocyte Esterase NEGATIVE (NEGATIVE) 02/10/18 07:30 Ur Culture Indicated? NOT INDICATED (NI) 02/10/18 07:30 Urine Glucose NEGATIVE (NEGATIVE) 02/10/18 07:30 Stool Occult Bld Scrn NEGATIVE (NEGATIVE) 02/12/18 06:00 Salicylates < 1.0 mg/dL (2.0-20.0) L 02/08/18 21:40 Urine Opiates Screen NEGATIVE ng/mL (NEGATIVE) 02/10/18 07:30 Acetaminophen < 10 mcg/mL (10-30) L 02/08/18 21:40 Urine Barbiturates NEGATIVE ng/mL (NEGATIVE) 02/10/18 07:30 Ur Phencyclidine Scrn NEGATIVE ng/mL (NEGATIVE) 02/10/18 07:30 Ur Amphetamine Screen NEGATIVE (NEGATIVE) 02/09/18 21:30 Ur Amphetamines Screen NEGATIVE ng/mL (NEGATIVE) 02/10/18 07:30 U Benzodiazepines Scrn NEGATIVE ng/mL (NEGATIVE) 02/10/18 07:30 Urine Cocaine Screen NEGATIVE ng/mL (NEGATIVE) 02/10/18 07:30 U Marijuana (THC) Screen NEGATIVE ng/mL (NEGATIVE) 02/10/18 07:30 Ethyl Alcohol < 10 mg/dL (0-10) 02/08/18 21:40 . 02/12/2018 peripheral smear demonstrates no platelet clumping. There is no increase in schistocytes. Assessment and plan This is a very pleasant 62-year-old female with history of chronic alcoholism who was admitted for symptoms of alcohol withdrawal who I am seeing in consultation for thrombocytopenia. 1. Thrombocytopenia: She is not receiving any heparin products. She has no evidence of coagulopathy. I suspect that this is secondary to her underlying liver disease and exacerbated by possible medication induced thrombocytopenia. She was previously treated with a cefazolin which could be one of the contributing factors. Agree with discontinuing the cefazolin seeing if there is improvement. In viewing her previous CBCs her platelet count on prior admissions there appears to be a pattern of worsening thrombocytopenia following admission. She has no evidence of active bleeding. I would avoid any transfusions for the time being. All questions were answered. She voiced understanding of the plan.
[2018-02-13] MEDS: SUCRALFATE 1 GM TAB PO SCH ×4 (06:15→21:04)
[2018-02-13] MEDS: LEVOTHYROXINE 100 MCG TAB PO SCH (06:15)
[2018-02-13] MEDS: MULTIVITAMINS 1 EACH TAB PO SCH (07:42)
[2018-02-13] MEDS: MAGNESIUM SULF 1 GM/DEXTROSE 100 ML IV ONE ×2 (07:43→09:48)
[2018-02-13] MEDS: FOLIC ACID 1 MG TAB PO SCH (07:43)
[2018-02-13] MEDS: THIAMINE HCL 100 MG TAB PO SCH (07:43)
--- NOTE | 2018-02-13 09:35 | HOSPPROG ---
Hospitalist Progress Note Assessment/Plan: 62 yo F w/ hx of ETOH use disorder, cirrhosis, FTT, frequent falls, AF, and CVA presents with desire to detox but was too unstable with ambulation to discharge to [facility]. Patient has had 31 admissions and multiple ER visits over the year. *gait instability w frequent falls -PT and OT *ETOH abuse -CIWA -folate, mvi, thiamine -no s/sx *ETOH cirrhosis -Child Hernandez score is a 9 (1 year mortality rate is 19% and at 2 years it is 43%) *FTT -underweight, frequently admitted *Depression -may benefit from an anti-depressant -reviewed her care w Dr Felton who will make further recommendations *hx of CVA -appreciate Dr Mcdowell consult -MRI show new area of old infarct since last MRI i right post parietal cortex ( no acute infarcts) -can't tolerate asa due to low platelet counts *Thrombocytopenia, pancytopenia -appreciate Dr Brown -likely from her chronic alcohol use *right hand swelling, concern for cellulitis -resolved, dc abx *AF -not a candidate for OAC due to frequent falling *Hypothyroid -elevated TSH -started on meds *electrolyte abnormality -protocol -added oral magnesium, she has no iv in place and is tired of being 'poked' *Plan: Dr Felton to make further recommendations, very appreciative of her and Minna Nieves's involvement Subjective: jaja has no complaints. She had to void more frequently last night, but no burning or irritation Objective: Vital Signs Temp Pulse Resp BP Pulse Ox 37.0 C 68 16 125/92 H 96 02/13/18 07:40 02/13/18 04:00 02/13/18 07:40 02/13/18 07:40 02/13/18 07:40 Laboratory Results 02/12/18 04:15 02/13/18 04:07 02/12/18 02/13/18 02/14/18 05:59 05:59 05:59 Intake Total 1360 1100 Output Total 150 1300 150 Balance 1210 -200 -150 PT 14.5 SEC (12.0-15.0) 02/12/18 04:15 INR 1.11 (0.83-1.16) 02/12/18 04:15 - Physical Exam Constitutional: chronically ill appearing, other (thin) Eyes: PERRL Ears, Nose, Mouth, Throat: hearing normal Respiratory: no respiratory distress Skin: warm Musculoskeletal: generalized weakness Neurologic: AAOx3 Psychiatric: interacting appropriately, poor insight, poor judgement, poor memory ICD10 Worksheet Patient Problems: Problems Problem Status Onset Alcohol withdrawal Acute Abdominal pain Acute Alcohol abuse Acute Altered mental status Acute Ankle fracture Acute Atrial fibrillation Acute Atrial fibrillation with RVR Acute C. difficile diarrhea Acute 09/23/16 Cardiac arrest Acute Dehydration Acute GI bleed Acute Homonymous hemianopsia Acute Hypocalcemia Acute Hypokalemia Acute Hypomagnesemia Acute Nausea & vomiting Acute Nausea and vomiting in adult Acute UTI (urinary tract infection) Acute
[2018-02-13] MEDS: MAGNESIUM OXIDE 400 MG TAB PO SCH (09:53)
[2018-02-13] MEDS: CHOLECALCIFEROL VIT D3 1,000 UNITS TAB PO SCH (13:37)
[2018-02-13] MEDS ORDERED: MELATONIN 3 MG TAB PO SCH (21:00)
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
[2018-02-13] MEDS ORDERED: POTASSIUM CL 10 MEQ TAB PO ONE (23:23)
[2018-02-14] MEDS: LEVOTHYROXINE 100 MCG TAB PO SCH (06:06)
[2018-02-14] MEDS ORDERED: POTASSIUM CL 10 MEQ TAB PO ONE (08:08)
[2018-02-14] MEDS: THIAMINE HCL 100 MG TAB PO SCH (08:18)
[2018-02-14] MEDS: FOLIC ACID 1 MG TAB PO SCH (08:18)
[2018-02-14] MEDS: MULTIVITAMINS 1 EACH TAB PO SCH (08:18)
[2018-02-14] MEDS: SUCRALFATE 1 GM TAB PO SCH ×4 (08:18→21:47)
[2018-02-14] MEDS: CHOLECALCIFEROL VIT D3 1,000 UNITS TAB PO SCH (08:18)
[2018-02-14] MEDS: MAGNESIUM OXIDE 400 MG TAB PO SCH (08:18)
[2018-02-14] MEDS ORDERED: TEMAZEPAM 15 MG CAP PO PRN (12:28)
[2018-02-14] MEDS ORDERED: LORazepam 0.5 MG TAB PO PRN (12:28)
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
--- NOTE | 2018-02-14 15:00 | HOSPPROG ---
Hospitalist Progress Note Assessment/Plan: 62 yo F w/ hx of ETOH use disorder, cirrhosis, FTT, frequent falls, AF, and CVA presents with desire to detox but was too unstable with ambulation to discharge to [facility]. Patient has had 31 admissions and multiple ER visits over the year. *gait instability w frequent falls -PT and OT *ETOH abuse -CIWA -folate, mvi, thiamine -had symptoms this morning -oral Ativan 0.5 mg prn ordered *ETOH cirrhosis -Child Hernandez score is a 9 (1 year mortality rate is 19% and at 2 years it is 43%) *FTT -underweight, frequently admitted -watched her walk w PT today, unsteady and high risk for falling *Depression -may benefit from an anti-depressant -reviewed her care w Dr Felton *hx of CVA -appreciate Dr Mcdowell consult -MRI show new area of old infarct since last MRI i right post parietal cortex ( no acute infarcts) -can't tolerate asa due to low platelet counts *Thrombocytopenia, pancytopenia -appreciate Dr Brown -likely from her chronic alcohol use/better *right hand swelling, concern for cellulitis -resolved, dc abx *AF -not a candidate for OAC due to frequent falling *Hypothyroid -elevated TSH -started on meds *electrolyte abnormality -protocol -added oral magnesium, she has no iv in place and is tired of being 'poked' *Plan: ask ST to re-evaluate, trial of Restoril tonight to see if this helps her sleep (Melatonin didn't help) Subjective: Clarisse said she is feeling better daily. Objective: Vital Signs Temp Pulse Resp BP Pulse Ox 37.2 C 83 20 105/67 94 02/14/18 11:21 02/14/18 11:21 02/14/18 11:21 02/14/18 11:21 02/14/18 11:21 Laboratory Results 02/14/18 04:27 02/14/18 04:27 02/13/18 02/14/18 02/15/18 05:59 05:59 05:59 Intake Total 1100 Output Total 1300 151 75 Balance -200 -151 -75 PT 14.5 SEC (12.0-15.0) 02/12/18 04:15 INR 1.11 (0.83-1.16) 10/16/18 04:15 - Physical Exam Constitutional: chronically ill appearing, other (thin) Eyes: PERRL Ears, Nose, Mouth, Throat: hearing normal Respiratory: no respiratory distress Skin: warm, No normal color (pale) Neurologic: other (alert, is very forgetful and didn't remember talking w Dr Felton earlier today) Psychiatric: interacting appropriately, poor insight, poor judgement, poor memory ICD10 Worksheet Patient Problems: Problems Problem Status Onset Alcohol withdrawal Acute Abdominal pain Acute Alcohol abuse Acute Altered mental status Acute Ankle fracture Acute Atrial fibrillation Acute Atrial fibrillation with RVR Acute C. difficile diarrhea Acute 09/23/16 Cardiac arrest Acute Dehydration Acute GI bleed Acute Homonymous hemianopsia Acute Hypocalcemia Acute Hypokalemia Acute Hypomagnesemia Acute Nausea & vomiting Acute Nausea and vomiting in adult Acute UTI (urinary tract infection) Acute
[2018-02-15] MEDS: LEVOTHYROXINE 100 MCG TAB PO SCH (06:11)
[2018-02-15] MEDS: THIAMINE HCL 100 MG TAB PO SCH (09:35)
[2018-02-15] MEDS: SUCRALFATE 1 GM TAB PO SCH ×4 (09:35→21:12)
[2018-02-15] MEDS: MAGNESIUM OXIDE 400 MG TAB PO SCH (09:35)
[2018-02-15] MEDS: MULTIVITAMINS 1 EACH TAB PO SCH (09:35)
[2018-02-15] MEDS: CHOLECALCIFEROL VIT D3 1,000 UNITS TAB PO SCH (09:35)
[2018-02-15] MEDS: FOLIC ACID 1 MG TAB PO SCH (09:35)
[2018-02-15] MEDS ORDERED: POTASSIUM CL 10 MEQ TAB PO ONE (12:11)
--- NOTE | 2018-02-15 12:44 | ASMTCMCOM ---
CM Note SKYLAR Note Notes: Spoke w/ONLINE SERVICES MANAGER, she is putting in an order for an Ethics consult for pt's decisional capacity. CM called Ethics and left information in a vm. Date Signed: 02/15/2018 12:43 PM Electronically Signed By:Minna Delgado RN
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
--- NOTE | 2018-02-15 15:17 | ASMTCMCOM ---
CM Note CM Note Notes: Met with team members today to discuss case (Ida Hathaway, Scarlet Benitez with risk, Ulices Prieto and Shivani Lance). This continues to be a challenging case with high risk for readmissions given patient's complexities. Palliative Care order will be placed - hopefully to help support this patient on an outpatient basis. At some point, patient may qualify for Hospice and that could potentially be a good disposition plan if patient of course agreed. Ida Tracy will also consult with Neuro and Ethics on decisional capacity. More to be determined on this case. CM will continue to follow. Please call me with questions. #[phone]. Date Signed: 02/15/2018 03:16 PM Electronically Signed By:Barbara Vazquez RN
--- NOTE | 2018-02-15 16:59 | ASMTCMCOM ---
CM Note CM Note Notes: Tessie Palliative to meet with pt on Sunday when MDPOA can attend. Please refer to previous note from Janessa. SMAPSON Plan: TBD Date Signed: 02/15/2018 04:58 PM Electronically Signed By:Minna Delgado RN
[2018-02-16] MEDS: CEPACOL LOZENGE PO PRN (00:06)
[2018-02-16] MEDS: LEVOTHYROXINE 100 MCG TAB PO SCH (05:10)
[2018-02-16] MEDS: MULTIVITAMINS 1 EACH TAB PO SCH (08:09)
[2018-02-16] MEDS: MAGNESIUM OXIDE 400 MG TAB PO SCH (08:09)
[2018-02-16] MEDS: FOLIC ACID 1 MG TAB PO SCH (08:09)
[2018-02-16] MEDS: SUCRALFATE 1 GM TAB PO SCH ×4 (08:09→21:42)
[2018-02-16] MEDS: CHOLECALCIFEROL VIT D3 1,000 UNITS TAB PO SCH (08:09)
[2018-02-16] MEDS: THIAMINE HCL 100 MG TAB PO SCH (08:09)
--- NOTE | 2018-02-16 11:48 | HOSPPROG ---
Hospitalist Progress Note Assessment/Plan: 62 yo F w/ hx of ETOH use disorder, cirrhosis, FTT, frequent falls, AF, and CVA presents with desire to detox but was too unstable with ambulation to discharge to [facility]. Patient has had 31 admissions and multiple ER visits over the year. First encounter this hospital stay, chart reviewed. D/W CM. *gait instability w frequent falls -PT and OT *ETOH abuse -CIWA -folate, mvi, thiamine -oral Ativan 0.5 mg prn *ETOH cirrhosis -Child Hernandez score is a 9 (1 year mortality rate is 19% and at 2 years it is 43%) *FTT -underweight, frequently admitted -unsteady and high risk for falling *Depression -consider antidepressant *hx of CVA -appreciate Dr Mcdowell consult -MRI show new area of old infarct since last MRI in right post parietal cortex ( no acute infarcts) -can't tolerate asa due to low platelet counts *Thrombocytopenia, pancytopenia -appreciate Dr Brown -likely from her chronic alcohol use/better *right hand swelling, concern for cellulitis -resolved, dc abx *AF -not a candidate for OAC due to frequent falling *Hypothyroid -elevated TSH -started on meds *electrolyte abnormality -protocol -added oral magnesium, she has no iv in place and is tired of being 'poked' *Plan: Ruby wants to leave today,she says she is better. -she is not decisional currently -agreeable to stay -palliative consult/ ethics for Sunday -D/W CM Subjective: Up in chair. No specific complaints. Objective: Vital Signs Temp Pulse Resp BP Pulse Ox 37.4 C 89 16 107/70 96 02/16/18 08:00 02/16/18 08:00 02/16/18 08:00 02/16/18 08:00 02/16/18 08:00 Laboratory Results 02/16/18 04:23 02/16/18 04:23 02/15/18 02/16/18 02/17/18 05:59 05:59 05:59 Intake Total 900 Output Total 75 350 Balance -75 550 PT 14.5 SEC (12.0-15.0) 02/12/18 04:15 INR 1.11 (0.83-1.16) 02/12/18 04:15 - Physical Exam Constitutional: no apparent distress, chronically ill appearing, cachectic Eyes: PERRL, anicteric sclera, EOMI Ears, Nose, Mouth, Throat: moist mucous membranes, hearing normal, ears appear normal Cardiovascular: No JVD, No tachycardia, No edema Respiratory: no respiratory distress, no rales or rhonchi, reduced air movement Gastrointestinal: distension, No tenderness, No ascites Skin: warm, normal color, No mottled Musculoskeletal: no joint effusions, abnormal gait, generalized weakness Neurologic: No AAOx3 Psychiatric: not anxious, poor insight, poor judgement, poor memory, No thought process linear ICD10 Worksheet Patient Problems: Problems Problem Status Onset Abdominal pain Acute Ankle fracture Acute GI bleed Acute Atrial fibrillation Acute Cardiac arrest Acute UTI (urinary tract infection) Acute Hypomagnesemia Acute Homonymous hemianopsia Acute Dehydration Acute Altered mental status Acute Hypokalemia Acute Hypocalcemia Acute Alcohol withdrawal Acute Nausea and vomiting in adult Acute Alcohol abuse Acute Nausea & vomiting Acute Atrial fibrillation with RVR Acute C. difficile diarrhea Acute 09/23/16
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
[2018-02-17] MEDS: LEVOTHYROXINE 100 MCG TAB PO SCH (05:34)
[2018-02-17] MEDS: CHOLECALCIFEROL VIT D3 1,000 UNITS TAB PO SCH (08:02)
[2018-02-17] MEDS: SUCRALFATE 1 GM TAB PO SCH ×4 (08:02→19:37)
[2018-02-17] MEDS: MAGNESIUM OXIDE 400 MG TAB PO SCH (08:03)
[2018-02-17] MEDS: THIAMINE HCL 100 MG TAB PO SCH (08:03)
[2018-02-17] MEDS: FOLIC ACID 1 MG TAB PO SCH (08:03)
[2018-02-17] MEDS: MULTIVITAMINS 1 EACH TAB PO SCH (08:03)
--- NOTE | 2018-02-17 12:25 | HOSPPROG ---
Hospitalist Progress Note Assessment/Plan: 62 yo F w/ hx of ETOH use disorder, cirrhosis, FTT, frequent falls, AF, and CVA presents with desire to detox but was too unstable with ambulation to discharge to [facility]. Patient has had 31 admissions and multiple ER visits over the year. *gait instability w frequent falls -PT and OT *ETOH abuse -CIWA -folate, mvi, thiamine -oral Ativan 0.5 mg prn *ETOH cirrhosis -Child Hernandez score is a 9 (1 year mortality rate is 19% and at 2 years it is 43%) *FTT -underweight, frequently admitted -unsteady and high risk for falling *Depression -consider antidepressant *hx of CVA -appreciate Dr Mcdowell consult -MRI show new area of old infarct since last MRI in right post parietal cortex ( no acute infarcts) -can't tolerate asa due to low platelet counts *Thrombocytopenia, pancytopenia -appreciate Dr Brown -likely from her chronic alcohol use/better *right hand swelling, concern for cellulitis -resolved, dc abx *AF -not a candidate for OAC due to frequent falling *Hypothyroid -elevated TSH -started on meds *electrolyte abnormality -protocol -added oral magnesium, she has no iv in place and is tired of being 'poked' *Plan: Ruby wants to leave today,she says she is better. -she is not decisional currently -agreeable to stay -palliative consult/ ethics for Sunday -D/W CM Subjective: Up in chair. Wants to leave. No pain. Objective: Vital Signs Temp Pulse Resp BP Pulse Ox 37.1 C 83 18 119/64 95 02/17/18 11:50 02/17/18 11:50 02/17/18 11:50 02/17/18 11:50 02/17/18 11:50 Laboratory Results 02/16/18 04:23 02/16/18 18:07 02/16/18 02/17/18 02/18/18 05:59 05:59 05:59 Intake Total 900 450 Output Total 350 200 Balance 550 250 PT 14.5 SEC (12.0-15.0) 02/12/18 04:15 INR 1.11 (0.83-1.16) 02/12/18 04:15 - Physical Exam Constitutional: chronically ill appearing, cachectic Eyes: PERRL, EOMI Ears, Nose, Mouth, Throat: moist mucous membranes, hearing normal Cardiovascular: No JVD, No edema Respiratory: no respiratory distress, reduced air movement Gastrointestinal: No tenderness, No ascites Skin: warm, normal color Musculoskeletal: muscular tenderness, generalized weakness Psychiatric: not anxious, poor insight, poor judgement, poor memory ICD10 Worksheet Patient Problems: Problems Problem Status Onset Abdominal pain Acute Ankle fracture Acute GI bleed Acute Atrial fibrillation Acute Cardiac arrest Acute UTI (urinary tract infection) Acute Hypomagnesemia Acute Homonymous hemianopsia Acute Dehydration Acute Altered mental status Acute Hypokalemia Acute Hypocalcemia Acute Alcohol withdrawal Acute Nausea and vomiting in adult Acute Alcohol abuse Acute Nausea & vomiting Acute Atrial fibrillation with RVR Acute C. difficile diarrhea Acute 09/23/16
[2018-02-18] MEDS: LEVOTHYROXINE 100 MCG TAB PO SCH (06:57)
[2018-02-18] MEDS: CHOLECALCIFEROL VIT D3 1,000 UNITS TAB PO SCH (07:56)
[2018-02-18] MEDS: MULTIVITAMINS 1 EACH TAB PO SCH (07:56)
[2018-02-18] MEDS: SUCRALFATE 1 GM TAB PO SCH ×4 (07:56→20:03)
[2018-02-18] MEDS: FOLIC ACID 1 MG TAB PO SCH (07:56)
[2018-02-18] MEDS: MAGNESIUM OXIDE 400 MG TAB PO SCH (07:56)
--- NOTE | 2018-02-18 15:24 | HOSPPROG ---
Hospitalist Progress Note Assessment/Plan: 62 yo F w/ hx of ETOH use disorder, cirrhosis, FTT, frequent falls, AF, and CVA presents with desire to detox but was too unstable with ambulation to discharge to [facility]. Patient has had 31 admissions and multiple ER visits over the year. *gait instability w frequent falls -PT and OT *ETOH abuse -folate, mvi, thiamine -no s/sx of withdrawal *ETOH cirrhosis -Child Hernandez score is a 9 (1 year mortality rate is 19% and at 2 years it is 43%) *FTT -underweight, frequently admitted -watched her walk w PT today, unsteady and high risk for falling *Depression -may benefit from an anti-depressant -reviewed her care w Dr Felton *hx of CVA -appreciate Dr Mcdowell consult -MRI show new area of old infarct since last MRI i right post parietal cortex ( no acute infarcts) -can't tolerate asa due to low platelet counts *Thrombocytopenia, pancytopenia -likely from her chronic alcohol use/better *right hand swelling, concern for cellulitis -resolved, dc abx *AF -not a candidate for OAC due to frequent falling *Hypothyroid -elevated TSH -started on meds *electrolyte abnormality -protocol -added oral magnesium, she has no iv in place and is tired of being 'poked' *Plan: Clarisse is getting stronger daily and wants to go home, She knows she needs to be in a safer environment and says she needs someone to help her. She doesn't have insight on how to get help or how to move forward. I am unclear if she is drinking and driving. She is willing to stay today. I spoke w Alex and Valentina both w Ethics and they agree she doesn't have insight. Her mood is very labile. CM to contact Lelo Ventura ) who works w [employer]. I've also reached out to Dr Felton about starting an anti-depressant for Clarisse. She has stairs in her home, she is worried she can't go up and down them, will ask PT to do stairs with her. Subjective: Clarisse said she is feeling better and has bills to pay and wants to go home. Objective: Vital Signs Temp Pulse Resp BP Pulse Ox 37.2 C 76 12 124/69 H 97 02/18/18 07:49 02/18/18 07:49 02/18/18 07:49 02/18/18 07:49 02/18/18 07:49 Laboratory Results 02/16/18 04:23 02/16/18 18:07 02/17/18 02/18/18 02/19/18 05:59 05:59 05:59 Intake Total 450 1000 Output Total 200 500 Balance 250 500 PT 14.5 SEC (12.0-15.0) 02/12/18 04:15 INR 1.11 (0.83-1.16) 02/12/18 04:15 - Physical Exam Constitutional: chronically ill appearing, other (thin) Eyes: PERRL Ears, Nose, Mouth, Throat: hearing normal Respiratory: no respiratory distress Skin: warm Musculoskeletal: generalized weakness, other (multiple bruises on forearms, healing) Psychiatric: interacting appropriately, poor insight (she has no recollection of who I am, this is my 6th time taking care of her), poor judgement, poor memory ICD10 Worksheet Patient Problems: Problems Problem Status Onset Alcohol withdrawal Acute Abdominal pain Acute Alcohol abuse Acute Altered mental status Acute Ankle fracture Acute Atrial fibrillation Acute Atrial fibrillation with RVR Acute C. difficile diarrhea Acute 09/23/16 Cardiac arrest Acute Dehydration Acute GI bleed Acute Homonymous hemianopsia Acute Hypocalcemia Acute Hypokalemia Acute Hypomagnesemia Acute Nausea & vomiting Acute Nausea and vomiting in adult Acute UTI (urinary tract infection) Acute
--- NOTE | 2018-02-18 16:33 | ASMTCMCOM ---
CM Note CM Note Notes: CM has contacted [facility], Lelo Ventura LCSW who is desizing machine operator head end of the company to see if she can open patient for ongoing case management in the community and also they are qualified to serve as her MDPOA. We are awaiting her return call. Patient is in need of follow up in the community and a regular PCP to follow her to prevent unnecessary readmissions. Hopefully, Lelo might be able to meet with the patient here in the hospital before d/c to sign her up for services. SKYLAR will follow. Date Signed: 02/18/2018 04:32 PM Electronically Signed By:Ruthie Dill LCSW
[2018-02-19] MEDS: LEVOTHYROXINE 100 MCG TAB PO SCH (05:28)
[2018-02-19] MEDS: SUCRALFATE 1 GM TAB PO SCH ×4 (07:57→20:09)
[2018-02-19] MEDS: MULTIVITAMINS 1 EACH TAB PO SCH (07:57)
[2018-02-19] MEDS: CHOLECALCIFEROL VIT D3 1,000 UNITS TAB PO SCH (07:57)
[2018-02-19] MEDS: FOLIC ACID 1 MG TAB PO SCH (07:57)
[2018-02-19] MEDS: MAGNESIUM OXIDE 400 MG TAB PO SCH (07:57)
[2018-02-19] MEDS: FLUoxetine 10 MG CAP PO SCH (10:39)
--- NOTE | 2018-02-19 12:37 | ASMTCMCOM ---
SKYLAR Note SKYLAR Note Notes: Spoke with Ashlyn [facility] and he states Lelo is private pay only, $90.00/hour. There is a program if patient qualifies will pay for the patient to have MDPOA service. (The Guardianship Client Experience Manager Program, ) We have learned the patient might have a chemistry faculty member who manages her financial affairs. CM and [facility] will both make efforts to get the corporate attorney's name from patient so we can contact him regarding being patient's MDPOA. If the chemistry faculty member doesn't work out we will try the guardianship program as a plan B. [facility] is also going to see if they can qualify her for HCBS which are home services the patient needs like housekeeping, errands, meals, etc. [facility] is returning tomorrow to finish these applications with the patient. Currently exploring [facility] and whether they can set up PCP who will make home visits and follow patient for her medical needs. CM will follow. Date Signed: 02/19/2018 12:36 PM Electronically Signed By:Ruthie Dill LCSW
--- NOTE | 2018-02-19 14:09 | HOSPPROG ---
Hospitalist Progress Note Assessment/Plan: 62 yo F w/ hx of ETOH use disorder, cirrhosis, FTT, frequent falls, AF, and CVA presents with desire to detox but was too unstable with ambulation to discharge to [facility]. Patient has had 31 admissions and multiple ER visits over the year. *gait instability w frequent falls -PT and OT *ETOH abuse -folate, mvi, thiamine -no s/sx of withdrawal *ETOH cirrhosis -Child Hernandez score is a 9 (1 year mortality rate is 19% and at 2 years it is 43%) *FTT -underweight, frequently admitted -watched her walk w PT today, unsteady and high risk for falling *Depression -ordered Prozac (she declined it and said she is not depressed) -reviewed her care w Dr Felton *hx of CVA -appreciate Dr Mcdowell consult -MRI show new area of old infarct since last MRI i right post parietal cortex ( no acute infarcts) -can't tolerate asa due to low platelet counts *Thrombocytopenia, pancytopenia -likely from her chronic alcohol use/better *right hand swelling, concern for cellulitis -resolved, dc abx *AF -not a candidate for OAC due to frequent falling *Hypothyroid -elevated TSH -started on meds *electrolyte abnormality -protocol -added oral magnesium, she has no iv in place and is tired of being 'poked' *Plan: Reviewed w Clarisse about my concern she is drinking and driving. She knows she drove herself to the ER. I told her she had a high blood alcohol level. She says if someone lived with her they could keep an eye on her to be sure she isn't drinking. I told her she is not to drive and have asked Neurology to see to help decide if she is safe to drive w her hx of stroke. I told her she could kill someone else and herself. She said she will continue driving. Clarisse is getting stronger daily and wants to go home. She did 18 steps with PT. Her mood continues to be labile. She can be calm and cooperative, but still lacks insight on how she is going to live on her own. She is unaware that her alcohol use is impacting her to live safely on her own. SKYLAR is actively working on a proxy. She became very upset when I told her I was concerned about her depression and Prozac may help her. She said she is not depressed and has anger issues. Subjective: Clarisse says she is fine to go home and will find someone to help her. Objective: Vital Signs Temp Pulse Resp BP Pulse Ox 37.4 C 83 18 115/70 98 02/18/18 16:00 02/19/18 08:00 02/19/18 08:00 02/19/18 08:00 02/19/18 08:00 Laboratory Results 02/16/18 04:23 02/16/18 18:07 02/18/18 02/19/18 02/20/18 05:59 05:59 05:59 Intake Total 1000 750 Output Total 500 Balance 500 750 PT 14.5 SEC (12.0-15.0) 02/12/18 04:15 INR 1.11 (0.83-1.16) 02/12/18 04:15 - Physical Exam Constitutional: not in pain, chronically ill appearing Eyes: PERRL Ears, Nose, Mouth, Throat: hearing normal Respiratory: no respiratory distress Gastrointestinal: normoactive bowel sounds Skin: warm Musculoskeletal: generalized weakness Psychiatric: poor insight (she doesn't remember me and I've been caring for her) , poor judgement, poor memory ICD10 Worksheet Patient Problems: Problems Problem Status Onset Alcohol withdrawal Acute Abdominal pain Acute Alcohol abuse Acute Altered mental status Acute Ankle fracture Acute Atrial fibrillation Acute Atrial fibrillation with RVR Acute C. difficile diarrhea Acute 09/23/16 Cardiac arrest Acute Dehydration Acute GI bleed Acute Homonymous hemianopsia Acute Hypocalcemia Acute Hypokalemia Acute Hypomagnesemia Acute Nausea & vomiting Acute Nausea and vomiting in adult Acute UTI (urinary tract infection) Acute
--- NOTE | 2018-02-19 16:02 | ASMTCMCOM ---
CM Note CM Note Notes: Shivani Casi was able to locate patient's third cousin, Kenneth Triplett at [phone]. A message was left for Kenneth to call us. CM to explore if he can serve as patient's MDPOA going forward. Kenneth disperses patient's family oil money to members of the family. The phone number goes to Kenneth's office which is [facility]. CM to follow. Date Signed: 02/19/2018 04:01 PM Electronically Signed By:Ruhtie Dill LCSW
[2018-02-20] MEDS: LEVOTHYROXINE 100 MCG TAB PO SCH (05:40)
--- NOTE | 2018-02-20 08:09 | NEUROPROG ---
Assessment: I dictated a follow-up consultative note today to address the issues of competency, driving and recommendations for outpatient therapies. As of this morning, the patient agrees that she is not safe to drive a car until such time that she can demonstrate adequate vision for driving as well as competency from an intellectual standpoint and reaction time standpoint. Hopefully she will agree to doing outpatient speech cognitive therapy and driving evaluation and really must have a visual field test performed sense certain criteria would preclude her from being able to drive and would provide a legal basis for restricting driving without her going to formal court proceedings to declare competency. Objective: Vital Signs Temp Pulse Resp BP Pulse Ox 36.8 C 66 16 101/69 96 02/19/18 22:18 02/19/18 22:18 02/19/18 22:18 02/19/18 22:18 02/19/18 22:18 Laboratory Results 02/16/18 04:23 02/16/18 18:07 02/19/18 02/20/18 02/21/18 05:59 05:59 05:59 Intake Total 750 500 Balance 750 500 PT 14.5 SEC (12.0-15.0) 02/12/18 04:15 INR 1.11 (0.83-1.16) 02/12/18 04:15 Allergies/Adverse Reactions: Sulfa (Sulfonamide Antibiotics) Allergy (Mild, Verified 02/08/18 21:01) Rash
[2018-02-20] MEDS: FLUoxetine 10 MG CAP PO SCH (08:32)
[2018-02-20] MEDS: SUCRALFATE 1 GM TAB PO SCH ×4 (08:32→21:13)
[2018-02-20] MEDS: MAGNESIUM OXIDE 400 MG TAB PO SCH (08:33)
[2018-02-20] MEDS: CHOLECALCIFEROL VIT D3 1,000 UNITS TAB PO SCH (08:33)
[2018-02-20] MEDS: FOLIC ACID 1 MG TAB PO SCH (08:33)
[2018-02-20] MEDS: MULTIVITAMINS 1 EACH TAB PO SCH (08:33)
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
--- NOTE | 2018-02-20 12:35 | ASMTCMCOM ---
CM Note CM Note Notes: Pt triggering PASRR faxed to OBRA coordinator. Date Signed: 02/20/2018 12:34 PM Electronically Signed By:JOSE Dsouza
--- NOTE | 2018-02-20 14:04 | ASMTCMCOM ---
CM Note CM Note Notes: Since pt SNF payer source is Medicaid [facility] will complete pt PASRR. OBRA coordinator Kelechi Evans notified to shred pt PASRR. Date Signed: 02/20/2018 02:03 PM Electronically Signed By:JOSE Dsouza
--- NOTE | 2018-02-20 16:19 | ASMTCMCOM ---
CM Note CM Note Notes: 02/20/2018 Case Management Note Discussed pt at complex care conference and with ethics steam and gas turbines assembler. Barbara Vazquez is up to date and conferring with Shivani Lance. Pt has been placed on medical detainer today. Faxed [facility] for [facility] care d/t pt memory/cognition issues. Faxed referrals to local SNFs and Assisted Living facilities. Med Data to assess for [facility] Medicaid eligibility. Please see ethics note. Fernandez Robison MD has been appointed as physician [facility] [phone]. Case Management d/c poc: to be determined. Case Management to follow. Date Signed: 02/20/2018 04:17 PM Electronically Signed By:Marlena Sandoval RN
--- NOTE | 2018-02-20 16:45 | HOSPPROG ---
Hospitalist Progress Note Assessment/Plan: 62 yo F w/ hx of ETOH use disorder, cirrhosis, FTT, frequent falls, AF, and CVA presents with desire to detox but was too unstable with ambulation to discharge to [facility]. Patient has had 31 admissions and multiple ER visits over the year. *gait instability w frequent falls -PT and OT *ETOH abuse -folate, mvi, thiamine -no s/sx of withdrawal *ETOH cirrhosis -Child Hernandez score is a 9 (1 year mortality rate is 19% and at 2 years it is 43%) *FTT -underweight, frequently admitted -watched her walk w PT today, unsteady and high risk for falling *Depression -Prozac (she declined it and said she is not depressed) *hx of CVA -appreciate Dr Mcdowell consult -MRI show new area of old infarct since last MRI i right post parietal cortex ( no acute infarcts) -can't tolerate asa due to low platelet counts *Thrombocytopenia, pancytopenia -likely from her chronic alcohol use/better *right hand swelling, concern for cellulitis -resolved, dc abx *AF -not a candidate for OAC due to frequent falling *Hypothyroid -elevated TSH -started on meds *electrolyte abnormality -protocol -oral magnesium, she has no iv in place and is tired of being 'poked' *Plan: Placed on a detainer not decisional CM working on plan Subjective: Up in bed. Wants to leave. Can't understand why im there. Objective: Vital Signs Temp Pulse Resp BP Pulse Ox 37.2 C 78 18 106/56 L 98 02/20/18 08:00 02/20/18 08:00 02/20/18 08:00 02/20/18 08:00 02/20/18 08:00 Laboratory Results 02/16/18 04:23 02/16/18 18:07 02/19/18 02/20/18 02/21/18 05:59 05:59 05:59 Intake Total 750 500 Balance 750 500 PT 14.5 SEC (12.0-15.0) 02/12/18 04:15 INR 1.11 (0.83-1.16) 02/12/18 04:15 - Physical Exam Constitutional: chronically ill appearing, cachectic Eyes: PERRL, anicteric sclera Ears, Nose, Mouth, Throat: moist mucous membranes, hearing normal Cardiovascular: regular rate and rhythym, No JVD Respiratory: no respiratory distress, reduced air movement Gastrointestinal: normoactive bowel sounds, No tenderness Skin: warm, normal color Musculoskeletal: no joint effusions, generalized weakness Neurologic: No AAOx3 Psychiatric: poor insight, poor judgement, poor memory, No thought process linear ICD10 Worksheet Patient Problems: Problems Problem Status Onset Abdominal pain Acute Ankle fracture Acute GI bleed Acute Atrial fibrillation Acute Cardiac arrest Acute UTI (urinary tract infection) Acute Hypomagnesemia Acute Homonymous hemianopsia Acute Dehydration Acute Altered mental status Acute Hypokalemia Acute Hypocalcemia Acute Alcohol withdrawal Acute Nausea and vomiting in adult Acute Alcohol abuse Acute Nausea & vomiting Acute Atrial fibrillation with RVR Acute C. difficile diarrhea Acute 09/23/16
[2018-02-21] MEDS: LEVOTHYROXINE 100 MCG TAB PO SCH (06:31)
[2018-02-21] MEDS: SUCRALFATE 1 GM TAB PO SCH ×4 (06:31→20:27)
--- NOTE | 2018-02-21 07:47 | ASMTCMCOM ---
CM Note CM Note Notes: Update on financial application for LTC Medicaid: Tanya with [employer] spoke with patient's cousin, Kenneth, re: oil income. There is a family partnership and this patient receives approx $[phone] monthly. Kenneth is not willing to provide any statement of proof until a release is signed by the MD proxy (Case Management will work to obtain this). Kenneth is unaware of patient's personal bank accounts, DERRELL's, etc. There may be some family in [place] but did not know for certain. He suggested we contact a nephew by the name of Kaiden to obtain some of this information. [facility] will follow-up with Kaiden to inquire about personal bank accounts and intermediate accounts. At this time, it is unclear whether patient will qualify for LTC Medicaid. If not, then perhaps starting a court ordered guardian to assist in managing patient's finances and spend down for a LTC placement would be the next step. I am discussing this case with director, Shivani Lance. Please see Case Management note from yesterday afternoon re: referrals that have already been sent in hopes we can get patient placed in LTC. CM will continue to follow. Date Signed: 02/21/2018 07:46 AM Electronically Signed By:Barbara Vazquez RN
[2018-02-21] MEDS: MULTIVITAMINS 1 EACH TAB PO SCH (10:24)
[2018-02-21] MEDS: CHOLECALCIFEROL VIT D3 1,000 UNITS TAB PO SCH (10:24)
[2018-02-21] MEDS: MAGNESIUM OXIDE 400 MG TAB PO SCH (10:24)
[2018-02-21] MEDS: FLUoxetine 10 MG CAP PO SCH (10:24)
[2018-02-21] MEDS: FOLIC ACID 1 MG TAB PO SCH (10:24)
--- NOTE | 2018-02-21 14:58 | ASMTCMCOM ---
CM Note CM Note Notes: Met with [employer] D[employer] Worker, Mirtha Lance and Nikolai Becker re: pt's d/c needs. Due to pt being found not decisional and in danger of hurting herself and/or others due to her limited capacity to make safe decisions, CM will proceed with the process of seeking emergency guardianship. Shivani Casi will contact Lelo Ventura and Chano Barreto as well as our legal department at [facility] and request their assistance. Pt will remain on a medical detainer as we work to obtain guardianship and a safe d/c plan. This case has also been discussed with [facility] Ethics team. CM requested they assist with naming a MD proxy for this hospital stay as we work towards guardianship. CM will continue to follow this case. D/C Plan: Guardianship with the plan for LTC Placement. Date Signed: 02/21/2018 02:58 PM Electronically Signed By:Barbara Vazquez RN
--- NOTE | 2018-02-21 15:06 | ASMTCMCOM ---
CM Note CM Note Notes: Clarisse has now been deemed by Taisha Mcdonald to not have decisional capacity. We are awaiting a physician's consult to verify and validate Taisha's diagnosis. Currently, this patient is unsafe to return home. [facility] willing [facility] this patient the medical proxy's approval. They will be out today to evaluate the patient. There is a female bed for Clarisse on the dementia lira. Irais Jaquez, Manager Instrumentation for , understands the whole picture. We will continue to the discussions. Date Signed: 02/21/2018 03:06 PM Electronically Signed By:Shivani Lance RN
--- NOTE | 2018-02-21 16:28 | HOSPPROG ---
Hospitalist Progress Note Assessment/Plan: 62 yo F w/ hx of ETOH use disorder, cirrhosis, FTT, frequent falls, AF, and CVA presents with desire to detox but was too unstable with ambulation to discharge to [facility]. Patient has had 31 admissions and multiple ER visits over the year. *gait instability w frequent falls -PT and OT *ETOH abuse -folate, mvi, thiamine -no s/sx of withdrawal *ETOH cirrhosis -Child Hernandez score is a 9 (1 year mortality rate is 19% and at 2 years it is 43%) *Wernickes dementia -related to excessive ETOH abuse -pt confused -poor memory *FTT -underweight, frequently admitted -unsteady and high risk for falling *Depression -Prozac (she declined it and said she is not depressed) *hx of CVA -MRI show new area of old infarct since last MRI i right post parietal cortex ( no acute infarcts) -can't tolerate asa due to low platelet counts *Thrombocytopenia, pancytopenia -likely from her chronic alcohol use/better *right hand swelling, concern for cellulitis -resolved, dc abx *AF -not a candidate for OAC due to frequent falling *Hypothyroid -elevated TSH -started on meds *electrolyte abnormality -protocol -oral magnesium, she has no iv in place and is tired of being 'poked' *Plan: Placed on a detainer not decisional, pt unable to process information and is not safe CM working on plan reviewed with CM Subjective: Up in chair. No complaints. Objective: Vital Signs Temp Pulse Resp BP Pulse Ox 37.4 C 80 18 115/72 97 02/21/18 16:00 02/21/18 16:00 02/21/18 16:00 02/21/18 16:00 02/21/18 16:00 Laboratory Results 02/16/18 04:23 02/16/18 18:07 02/20/18 02/21/18 02/22/18 05:59 05:59 05:59 Intake Total 500 Balance 500 PT 14.5 SEC (12.0-15.0) 02/12/18 04:15 INR 1.11 (0.83-1.16) 02/12/18 04:15 - Physical Exam Constitutional: no apparent distress, chronically ill appearing, cachectic Eyes: PERRL, anicteric sclera, EOMI Ears, Nose, Mouth, Throat: moist mucous membranes, hearing normal, ears appear normal, poor dentition Cardiovascular: No JVD, No tachycardia, No edema Respiratory: no respiratory distress, no rales or rhonchi, reduced air movement Gastrointestinal: normoactive bowel sounds, No tenderness, No ascites Skin: warm, normal color, No mottled Musculoskeletal: normal joint ROM, no joint effusions, generalized weakness Neurologic: No AAOx3 Psychiatric: not anxious, poor insight, poor judgement, poor memory, No thought process linear ICD10 Worksheet Patient Problems: Problems Problem Status Onset Abdominal pain Acute Ankle fracture Acute GI bleed Acute Atrial fibrillation Acute Cardiac arrest Acute UTI (urinary tract infection) Acute Hypomagnesemia Acute Homonymous hemianopsia Acute Dehydration Acute Altered mental status Acute Hypokalemia Acute Hypocalcemia Acute Alcohol withdrawal Acute Nausea and vomiting in adult Acute Alcohol abuse Acute Nausea & vomiting Acute Atrial fibrillation with RVR Acute C. difficile diarrhea Acute 09/23/16
[2018-02-22] MEDS: LEVOTHYROXINE 100 MCG TAB PO SCH (06:15)
[2018-02-22] MEDS: SUCRALFATE 1 GM TAB PO SCH ×4 (06:15→20:04)
[2018-02-22] MEDS: FOLIC ACID 1 MG TAB PO SCH (08:24)
[2018-02-22] MEDS: CHOLECALCIFEROL VIT D3 1,000 UNITS TAB PO SCH (08:24)
[2018-02-22] MEDS: FLUoxetine 10 MG CAP PO SCH (08:24)
[2018-02-22] MEDS: MAGNESIUM OXIDE 400 MG TAB PO SCH (08:24)
[2018-02-22] MEDS: MULTIVITAMINS 1 EACH TAB PO SCH (08:24)
--- NOTE | 2018-02-22 09:59 | ASMTCMCOM ---
CM Note CM Note Notes: Yesterday CM contacted Franci at [facility] d/c ing pt to [facility] as was discussed between her scheduling administrator Irais Jaquez and Shivani Lance. Irais had not yet spoken to Franci; Franci stated that she would need to speak with Irais and Bart before moving forward to d/c. This morning CM recontacted Franci. Franci was gone for the day and was being covered by Sloan. Sloan was unaware of the decision by Irais Jaquez and stated he would get back to [facility] after he had time to speak with her. CM to follow. D/C Plan: SNF Date Signed: 02/22/2018 09:58 AM Electronically Signed By:Karolina Avalos
--- NOTE | 2018-02-22 14:17 | HOSPPROG ---
Hospitalist Progress Note Assessment/Plan: 62 yo F w/ hx of ETOH use disorder, cirrhosis, FTT, frequent falls, AF, and CVA presents with desire to detox but was too unstable with ambulation to discharge to [facility]. Patient has had 31 admissions and multiple ER visits over the year. *gait instability w frequent falls -PT and OT *ETOH abuse -folate, mvi, thiamine -no s/sx of withdrawal *ETOH cirrhosis -Child Hernandez score is a 9 (1 year mortality rate is 19% and at 2 years it is 43%) *Wernickes dementia -related to excessive ETOH abuse -pt confused -poor memory *FTT -underweight, frequently admitted -unsteady and high risk for falling *Depression -Prozac (she declined it and said she is not depressed) *hx of CVA -MRI show new area of old infarct since last MRI i right post parietal cortex ( no acute infarcts) -can't tolerate asa due to low platelet counts *Thrombocytopenia, pancytopenia -likely from her chronic alcohol use/better *right hand swelling, concern for cellulitis -resolved, dc abx *AF -not a candidate for OAC due to frequent falling *Hypothyroid -elevated TSH -started on meds *electrolyte abnormality -protocol -oral magnesium, she has no iv in place and is tired of being 'poked' *Plan: Placed on a detainer not decisional, pt unable to process information and is not safe CM working on plan reviewed with CM plan for [facility] is MDPOA D/W Dr Mireles Subjective: Up in bed. No issues. Objective: Vital Signs Temp Pulse Resp BP Pulse Ox 36.8 C 63 16 99/68 L 96 02/22/18 07:16 02/22/18 07:16 02/22/18 07:16 02/22/18 07:16 02/22/18 07:16 Laboratory Results 02/16/18 04:23 02/16/18 18:07 02/21/18 02/22/18 02/23/18 05:59 05:59 05:59 Intake Total 850 Balance 850 PT 14.5 SEC (12.0-15.0) 02/12/18 04:15 INR 1.11 (0.83-1.16) 02/12/18 04:15 - Physical Exam Constitutional: chronically ill appearing, cachectic Eyes: PERRL, anicteric sclera Ears, Nose, Mouth, Throat: moist mucous membranes, hearing normal Cardiovascular: No JVD, No edema Respiratory: no respiratory distress, reduced air movement Gastrointestinal: No tenderness, No ascites Skin: warm, normal color Musculoskeletal: no joint effusions, generalized weakness Neurologic: No AAOx3 Psychiatric: poor insight, poor judgement, poor memory, No thought process linear ICD10 Worksheet Patient Problems: Problems Problem Status Onset Abdominal pain Acute Ankle fracture Acute GI bleed Acute Atrial fibrillation Acute Cardiac arrest Acute UTI (urinary tract infection) Acute Hypomagnesemia Acute Homonymous hemianopsia Acute Dehydration Acute Altered mental status Acute Hypokalemia Acute Hypocalcemia Acute Alcohol withdrawal Acute Nausea and vomiting in adult Acute Alcohol abuse Acute Nausea & vomiting Acute Atrial fibrillation with RVR Acute C. difficile diarrhea Acute 09/23/16
--- NOTE | 2018-02-22 15:09 | HOSPPROG ---
Hospitalist Progress Note Assessment/Plan: Patient known to me from frequent alcohol related admissions she does not remeber me each time she is unable to follow discharge instructions MRI of brain shows atrophy This is consistent with a diagnosis of dementia Objective: Vital Signs Temp Pulse Resp BP Pulse Ox 36.8 C 63 16 99/68 L 96 02/22/18 07:16 02/22/18 07:16 02/22/18 07:16 02/22/18 07:16 02/22/18 07:16 Laboratory Results 02/16/18 04:23 02/16/18 18:07 02/21/18 02/22/18 02/23/18 05:59 05:59 05:59 Intake Total 850 Balance 850 PT 14.5 SEC (12.0-15.0) 02/12/18 04:15 INR 1.11 (0.83-1.16) 02/12/18 04:15 ICD10 Worksheet Patient Problems: Problems Problem Status Onset Alcohol withdrawal Acute Abdominal pain Acute Alcohol abuse Acute Altered mental status Acute Ankle fracture Acute Atrial fibrillation Acute Atrial fibrillation with RVR Acute C. difficile diarrhea Acute 09/23/16 Cardiac arrest Acute Dehydration Acute GI bleed Acute Homonymous hemianopsia Acute Hypocalcemia Acute Hypokalemia Acute Hypomagnesemia Acute Nausea & vomiting Acute Nausea and vomiting in adult Acute UTI (urinary tract infection) Acute
--- NOTE | 2018-02-22 15:29 | ASMTCMCOM ---
CM Note CM Note Notes: Recent notes sent to [facility] and [facility]; these include the diagnosis of dementia. Pt asked [facility] to fax statement to [facility]; [facility] has done this and [facility] statement has been received. CM to follow. D/C Plan: SNF Date Signed: 02/22/2018 03:28 PM Electronically Signed By:Karolina Avlaos
--- NOTE | 2018-02-22 16:12 | ASMTCMCOM ---
CM Note CM Note Notes: [facility]. She will be transported tomorrow morning. An updated med list is being sent today through [facility]. D/C Plan: [place] Date Signed: 02/22/2018 04:11 PM Electronically Signed By:Karolina Avalos
--- NOTE | 2018-02-22 16:19 | ASMTCMCOM ---
CM Note CM Note Notes: Pt will not qualify for patient will not qualify for LTC Medicaid at this time, over income. D/C Plan: [facility] Date Signed: 02/22/2018 04:18 PM Electronically Signed By:Karolina Avalos
--- NOTE | 2018-02-22 17:16 | ASMTCMCOM ---
CM Note CM Note Notes: Patient unable to discharge to [facility] on Sunday d/t PASRR/approval from [facility] not received as of late Sunday. LVM for [facility] late Sunday afternoon, have not heard back. [facility] unable to accept on Sunday without this approval. Patient will likely have to stay through the weekend. Plan: [facility] hopefully beginning of next week. Date Signed: 02/22/2018 05:15 PM Electronically Signed By:Barbara Vazquez RN
[2018-02-23] MEDS: LEVOTHYROXINE 100 MCG TAB PO SCH (05:13)
[2018-02-23] MEDS: MAGNESIUM OXIDE 400 MG TAB PO SCH (08:32)
[2018-02-23] MEDS: SUCRALFATE 1 GM TAB PO SCH ×4 (08:32→20:01)
[2018-02-23] MEDS: FOLIC ACID 1 MG TAB PO SCH (08:32)
[2018-02-23] MEDS: MULTIVITAMINS 1 EACH TAB PO SCH (08:33)
[2018-02-23] MEDS: CHOLECALCIFEROL VIT D3 1,000 UNITS TAB PO SCH (08:33)
[2018-02-23] MEDS: FLUoxetine 10 MG CAP PO SCH (08:33)
--- NOTE | 2018-02-23 15:42 | HOSPPROG ---
Hospitalist Progress Note Assessment/Plan: 62 yo F w/ hx of ETOH use disorder, cirrhosis, FTT, frequent falls, AF, and CVA presents with desire to detox but was too unstable with ambulation to discharge to [facility]. Patient has had 31 admissions and multiple ER visits over the year. 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 -short term memory very limited, contributing to her lack of safety at [facility] *FTT -underweight, frequently admitted -unsteady and high risk for falling *Depression -Prozac (she declined it and said she is not depressed) *hx of CVA -MRI show new area of old infarct since last MRI i right post parietal cortex ( no acute infarcts) -can't tolerate asa due to low platelet counts *Thrombocytopenia, pancytopenia -2/2 chronic alcohol use and liver disease, stable *right hand swelling -resolved, dc abx *AF -not a candidate for AC due to frequent falling, thrombocytopenia *Hypothyroid -started on synthroid, tsh elevated *electrolyte abnormality -replete as needed *Plan: Placed on a detainer--states she wants to go home and while she recognizes that she has not been safe at home, states that was because of alcohol and she will not be drinking any longer. Complicated issue. Ethics and case management involved, will need to be an ongoing evaluation. plan for Valerie nicholas at this time niece is MDPOA Patient new to my care. Old records reviewed and summarized as above. Subjective: no significant overnight events, patient overall states she is doing well and wants to go home, she does not want to be here anymore, she states she wont' be drinking anymore so the issues she was having should be over Objective: Vital Signs Temp Pulse Resp BP Pulse Ox 37.0 C 73 12 116/77 96 02/23/18 07:58 02/23/18 07:58 02/23/18 07:58 02/23/18 07:58 02/23/18 07:58 Laboratory Results 02/16/18 04:23 02/16/18 18:07 02/22/18 02/23/18 02/24/18 05:59 05:59 05:59 Intake Total 850 Balance 850 PT 14.5 SEC (12.0-15.0) 02/12/18 04:15 INR 1.11 (0.83-1.16) 02/12/18 04:15 chronically ill appearing, thin poor dentition rrr no mrg cta b soft nt nd no cce warm dry well perfused oriented - Time Spent With Patient Time Spent with Patient: greater than 35 minutes Time Spent with Patient: Greater than 35 minutes spent on this patients care, greater than 50% of time spent counseling, educating, and coordinating care regarding the above mentioned plan. ICD10 Worksheet Patient Problems: Problems Problem Status Onset Alcohol withdrawal Acute Abdominal pain Acute Alcohol abuse Acute Altered mental status Acute Ankle fracture Acute Atrial fibrillation Acute Atrial fibrillation with RVR Acute C. difficile diarrhea Acute 09/23/16 Cardiac arrest Acute Dehydration Acute GI bleed Acute Homonymous hemianopsia Acute Hypocalcemia Acute Hypokalemia Acute Hypomagnesemia Acute Nausea & vomiting Acute Nausea and vomiting in adult Acute UTI (urinary tract infection) Acute
[2018-02-24] MEDS: CEPACOL LOZENGE PO PRN ×2 (01:46→20:40)
[2018-02-24] MEDS: LEVOTHYROXINE 100 MCG TAB PO SCH (06:17)
[2018-02-24] MEDS: MULTIVITAMINS 1 EACH TAB PO SCH (09:33)
[2018-02-24] MEDS: SUCRALFATE 1 GM TAB PO SCH ×4 (09:33→20:38)
[2018-02-24] MEDS: CHOLECALCIFEROL VIT D3 1,000 UNITS TAB PO SCH (09:33)
[2018-02-24] MEDS: MAGNESIUM OXIDE 400 MG TAB PO SCH (09:33)
[2018-02-24] MEDS: FLUoxetine 10 MG CAP PO SCH (09:33)
[2018-02-24] MEDS: FOLIC ACID 1 MG TAB PO SCH (09:33)
--- NOTE | 2018-02-24 13:31 | HOSPPROG ---
Hospitalist Progress Note Assessment/Plan: 62 yo F w/ hx of ETOH use disorder, cirrhosis, FTT, frequent falls, AF, and CVA presents with desire to detox but was too unstable with ambulation to discharge to [facility]. Patient has had 31 admissions and multiple ER visits over the year. *gait instability w frequent falls -PT and OT, multiple hospital admissions and ER visits, unsafe to go back to prior living situation *ETOH abuse -folate, mvi, thiamine -no s/sx of withdrawal at this time *ETOH cirrhosis -Child Hernandez score is a 9 (1 year mortality rate is 19% and at 2 years it is 43%) *Wernickes dementia -short term memory very limited, contributing to her lack of safety at home, patient intermittently aggressive with staff and upset over being kept in the hospital, PRN haldol for agitation/aggression *FTT -underweight, frequently admitted -unsteady and high risk for falling *Depression -patient declining treatment *hx of CVA -MRI show new area of old infarct since last MRI in right post parietal cortex ( no acute infarcts) -can't tolerate asa due to low platelet counts *Thrombocytopenia, pancytopenia -2/2 chronic alcohol use and liver disease, stable *AF -not a candidate for AC due to frequent falling, thrombocytopenia *Hypothyroid -started on synthroid, tsh elevated *Plan: Placed on a detainer--states she wants to go home and while she recognizes that she has not been safe at home, states that was because of alcohol and she will not be drinking any longer. Complicated issue. Ethics and case management involved, will need to be an ongoing evaluation. plan for Valerie nicholas at this time, hopefully will be able to dc there on 02/25 niece is MDPOA Patient new to my care. Old records reviewed and summarized as above. Subjective: patient notes that she thinks she might have broken her right leg at some point but can't remember, she feels like it is now misshapen. She is also expressing anger/upset over not being allowed to go home, does not recall prior conversation about why she is still here Objective: Vital Signs Temp Pulse Resp BP Pulse Ox 37.4 C 89 16 118/71 96 02/24/18 08:00 02/24/18 08:00 02/24/18 08:00 02/24/18 08:00 02/24/18 08:00 Laboratory Results 02/16/18 04:23 02/16/18 18:07 02/23/18 02/24/18 02/25/18 05:59 05:59 05:59 Intake Total 500 Balance 500 PT 14.5 SEC (12.0-15.0) 02/12/18 04:15 INR 1.11 (0.83-1.16) 02/12/18 04:15 awake alert anicteric poor dentition rrr no mrg cta b right lower extremity with distal edema, no erythema or ttp short term memory very limited, labile, aggressive and cursing at me - Time Spent With Patient Time Spent with Patient: greater than 35 minutes Time Spent with Patient: Greater than 35 minutes spent on this patients care, greater than 50% of time spent counseling, educating, and coordinating care regarding the above mentioned plan. ICD10 Worksheet Patient Problems: Problems Problem Status Onset Alcohol withdrawal Acute Abdominal pain Acute Alcohol abuse Acute Altered mental status Acute Ankle fracture Acute Atrial fibrillation Acute Atrial fibrillation with RVR Acute C. difficile diarrhea Acute 09/23/16 Cardiac arrest Acute Dehydration Acute GI bleed Acute Homonymous hemianopsia Acute Hypocalcemia Acute Hypokalemia Acute Hypomagnesemia Acute Nausea & vomiting Acute Nausea and vomiting in adult Acute UTI (urinary tract infection) Acute
[2018-02-24] MEDS ORDERED: HALOPERIDOL 1 MG TAB PO PRN (13:33)
[2018-02-24] MEDS ORDERED: HALOPERIDOL 2 MG TAB PO ONE (13:33)
[2018-02-25] MEDS: CHOLECALCIFEROL VIT D3 1,000 UNITS TAB PO SCH (08:31)
[2018-02-25] MEDS: MAGNESIUM OXIDE 400 MG TAB PO SCH (08:31)
[2018-02-25] MEDS: SUCRALFATE 1 GM TAB PO SCH ×4 (08:31→21:19)
[2018-02-25] MEDS: FLUoxetine 10 MG CAP PO SCH (08:31)
[2018-02-25] MEDS: FOLIC ACID 1 MG TAB PO SCH (08:31)
[2018-02-25] MEDS: MULTIVITAMINS 1 EACH TAB PO SCH (08:31)
[2018-02-25] MEDS: LEVOTHYROXINE 100 MCG TAB PO SCH (08:31)
--- NOTE | 2018-02-25 11:03 | ASMTCMCOM ---
CM Note CM Note Notes: Pts case discussed w/ Taisha Mcnally, [employer] regarding d/c POC. CM spoke to Helena Amador w/ [facility]. Helena came and attempted to assess pt last week. Pt signed a withdrawal form at that time. CM contacted pts proxy Mojgan and notified her of the situation. CM provided Helena w/ Mojgan's phone number. Mojgan will be able to complete ULTC-100 assessment w/ Helena. Mojgan will come to the hospital on Sunday. Updates sent to Valerie Bell. CM to follow. Plan: Valerie Bell Date Signed: 02/25/2018 11:03 AM Electronically Signed By:HERRERA Ashley
--- NOTE | 2018-02-25 14:24 | HOSPPROG ---
Hospitalist Progress Note Assessment/Plan: 62 yo F w/ hx of ETOH use disorder, cirrhosis, FTT, frequent falls, AF, and CVA presents with desire to detox but was too unstable with ambulation to discharge to [facility]. Patient has had 31 admissions and multiple ER visits over the year. *gait instability w frequent falls -PT and OT, multiple hospital admissions and ER visits, unsafe to go back to prior living situation *ETOH abuse -folate, mvi, thiamine -no s/sx of withdrawal at this time *ETOH cirrhosis -Child Hernandez score is a 9 (1 year mortality rate is 19% and at 2 years it is 43%) *Wernickes dementia -short term memory very limited, contributing to her lack of safety at home, patient intermittently aggressive with staff and upset over being kept in the hospital, PRN haldol for agitation/aggression *FTT -underweight, frequently admitted -unsteady and high risk for falling *Depression -patient declining treatment *hx of CVA -MRI show new area of old infarct since last MRI in right post parietal cortex ( no acute infarcts) -can't tolerate asa due to low platelet counts *Thrombocytopenia, pancytopenia -2/2 chronic alcohol use and liver disease, stable *AF -not a candidate for AC due to frequent falling, thrombocytopenia *Hypothyroid -started on synthroid, tsh elevated *Plan: Placed on a detainer--states she wants to go home and while she recognizes that she has not been safe at home, states that was because of alcohol and she will not be drinking any longer. Complicated issue. Ethics and case management involved, will need to be an ongoing evaluation. plan for Valerie nicholas at this time, hopefully will be able to dc there on 02/26 niece is MDPOA Subjective: No complaints. Up in bed. Objective: Vital Signs Temp Pulse Resp BP Pulse Ox 37.1 C 75 16 100/67 97 02/25/18 07:17 02/25/18 07:17 02/25/18 07:17 02/25/18 07:17 02/25/18 07:17 Laboratory Results 02/16/18 04:23 02/16/18 18:07 02/24/18 02/25/18 02/26/18 05:59 05:59 05:59 Intake Total 500 Balance 500 PT 14.5 SEC (12.0-15.0) 02/12/18 04:15 INR 1.11 (0.83-1.16) 02/12/18 04:15 - Physical Exam Constitutional: chronically ill appearing, cachectic Eyes: PERRL, anicteric sclera Ears, Nose, Mouth, Throat: moist mucous membranes, hearing normal Cardiovascular: No JVD, No edema Respiratory: no respiratory distress, clear to auscultation Gastrointestinal: No tenderness, No ascites Skin: warm, normal color Musculoskeletal: no joint effusions, generalized weakness Neurologic: No AAOx3 Psychiatric: poor insight, poor judgement, No thought process linear ICD10 Worksheet Patient Problems: Problems Problem Status Onset Abdominal pain Acute Ankle fracture Acute GI bleed Acute Atrial fibrillation Acute Cardiac arrest Acute UTI (urinary tract infection) Acute Hypomagnesemia Acute Homonymous hemianopsia Acute Dehydration Acute Altered mental status Acute Hypokalemia Acute Hypocalcemia Acute Alcohol withdrawal Acute Nausea and vomiting in adult Acute Alcohol abuse Acute Nausea & vomiting Acute Atrial fibrillation with RVR Acute C. difficile diarrhea Acute 09/23/16
[2018-02-25] MEDS: CEPACOL LOZENGE PO PRN (21:19)
[2018-02-26] MEDS: LEVOTHYROXINE 100 MCG TAB PO SCH (07:22)
[2018-02-26] MEDS: SUCRALFATE 1 GM TAB PO SCH ×4 (07:22→21:01)
[2018-02-26] MEDS: MULTIVITAMINS 1 EACH TAB PO SCH (09:08)
[2018-02-26] MEDS: MAGNESIUM OXIDE 400 MG TAB PO SCH (09:08)
[2018-02-26] MEDS: FLUoxetine 10 MG CAP PO SCH (09:08)
[2018-02-26] MEDS: FOLIC ACID 1 MG TAB PO SCH (09:08)
[2018-02-26] MEDS: CHOLECALCIFEROL VIT D3 1,000 UNITS TAB PO SCH (09:08)
--- NOTE | 2018-02-26 10:21 | HOSPPROG ---
Hospitalist Progress Note Assessment/Plan: 62 yo F w/ hx of ETOH use disorder, cirrhosis, FTT, frequent falls, AF, and CVA presents with desire to detox but was too unstable with ambulation to discharge to [facility]. Patient has had 31 admissions and multiple ER visits over the year. *gait instability w frequent falls -PT and OT, multiple hospital admissions and ER visits, unsafe to go back to prior living situation *ETOH abuse -folate, mvi, thiamine -no s/sx of withdrawal at this time *ETOH cirrhosis -Child Hernandez score is a 9 (1 year mortality rate is 19% and at 2 years it is 43%) *Wernickes dementia -short term memory very limited, contributing to her lack of safety at home, patient intermittently aggressive with staff and upset over being kept in the hospital, PRN haldol for agitation/aggression *FTT -underweight, frequently admitted -unsteady and high risk for falling *Depression -patient declining treatment *hx of CVA -MRI show new area of old infarct since last MRI in right post parietal cortex ( no acute infarcts) -can't tolerate asa due to low platelet counts *Thrombocytopenia, pancytopenia -2/2 chronic alcohol use and liver disease, stable *AF -not a candidate for AC due to frequent falling, thrombocytopenia *Hypothyroid -started on synthroid, tsh elevated *Plan: Placed on a detainer--states she wants to go home and while she recognizes that she has not been safe at home, states that was because of alcohol and she will not be drinking any longer. Complicated issue. Ethics and case management involved, will need to be an ongoing evaluation. plan for Valerie nicholas at this time, hopefully will be able to dc there on 02/26 niece is MDPOA Subjective: Up in bed. Naked. Confused. Objective: Vital Signs Temp Pulse Resp BP Pulse Ox 37.3 C 81 16 101/61 99 02/26/18 08:00 02/26/18 08:00 02/26/18 08:00 02/26/18 08:00 02/26/18 08:00 Laboratory Results 02/16/18 04:23 02/16/18 18:07 PT 14.5 SEC (12.0-15.0) 02/12/18 04:15 INR 1.11 (0.83-1.16) 02/12/18 04:15 - Physical Exam Constitutional: chronically ill appearing, cachectic Eyes: PERRL, anicteric sclera Ears, Nose, Mouth, Throat: moist mucous membranes, hearing normal Cardiovascular: No JVD, No edema Respiratory: no respiratory distress, clear to auscultation Gastrointestinal: No tenderness, No ascites Skin: warm, normal color, No mottled Musculoskeletal: no joint effusions, generalized weakness Neurologic: No AAOx3 Psychiatric: not anxious, poor insight, poor judgement, poor memory ICD10 Worksheet Patient Problems: Problems Problem Status Onset Abdominal pain Acute Ankle fracture Acute GI bleed Acute Atrial fibrillation Acute Cardiac arrest Acute UTI (urinary tract infection) Acute Hypomagnesemia Acute Homonymous hemianopsia Acute Dehydration Acute Altered mental status Acute Hypokalemia Acute Hypocalcemia Acute Alcohol withdrawal Acute Nausea and vomiting in adult Acute Alcohol abuse Acute Nausea & vomiting Acute Atrial fibrillation with RVR Acute C. difficile diarrhea Acute 09/23/16
--- NOTE | 2018-02-26 13:09 | ASMTCMCOM ---
CM Note CM Note Notes: Spoke with Hawa with [facility] and she states she does not have enough information to qualify patient. She plans to talk to Mary when she arrives on Sunday to see if she has enough history to complete an approval letter. Notified Shivani Lance and Laz Mcnally. Hawa's number is [phone]. Updates were sent to Valerie Bell yesterday. Spoke with Franci with Valerie Bell to let her know about the delays.CM will follow. Date Signed: 02/26/2018 01:09 PM Electronically Signed By:Ruthie Dill LCSW
--- NOTE | 2018-02-26 16:29 | ASMTCMCOM ---
CM Note CM Note Notes: Proxy: In consultation with Dr. Alda Felton today, the proxy has been changed to a long time friend, Scarlet Browne [phone]. She has no objections except she is fearful of the sister, Milton. Date Signed: 02/26/2018 04:29 PM Electronically Signed By:Shivani Lance RN
--- NOTE | 2018-02-26 16:52 | ASMTCMCOM ---
CM Note CM Note Notes: Spoke with patient who emphatically states she does not want her sister or her niece involved in her personal affairs, particularly her finances. After some explanation and discussion, patient was amenable to having Lelo Ventura explain her services from [facility]. Patient states she does want help with clearing out her home, selling it, locating a living situation [place] that she can manage and will support her health.Patient is ready to have help and is willing to pay for it. She was also positive about being able to get some of this done while she is in a rehab program. Lelo was busy today but will call the patient in the morning. Hopefully, we can get a meeting set up where she goes over her services and the patient can sign a contract to get them started while she is in the hospital. Patient would like the case aide to sit in and help facilitate. If [facility] has not called back by mid morning, we should call her to facilitate the meeting getting set up. CM will follow. Date Signed: 02/26/2018 04:51 PM Electronically Signed By:Ruthie Dill LCSW
[2018-02-26] MEDS: TEMAZEPAM 15 MG CAP PO PRN (21:01)
[2018-02-26] MEDS: CEPACOL LOZENGE PO PRN (21:22)
[2018-02-27] MEDS: SUCRALFATE 1 GM TAB PO SCH ×4 (07:17→21:12)
[2018-02-27] MEDS: LEVOTHYROXINE 100 MCG TAB PO SCH (07:17)
[2018-02-27] MEDS: CEPACOL LOZENGE PO PRN (07:48)
[2018-02-27] MEDS: FLUoxetine 10 MG CAP PO SCH (08:45)
[2018-02-27] MEDS: MAGNESIUM OXIDE 400 MG TAB PO SCH (08:45)
[2018-02-27] MEDS: FOLIC ACID 1 MG TAB PO SCH (08:45)
[2018-02-27] MEDS: MULTIVITAMINS 1 EACH TAB PO SCH (08:46)
[2018-02-27] MEDS: CHOLECALCIFEROL VIT D3 1,000 UNITS TAB PO SCH (08:46)
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
--- NOTE | 2018-02-27 12:50 | HOSPPROG ---
Hospitalist Progress Note Assessment/Plan: 62 yo F w/ hx of ETOH use disorder, cirrhosis, FTT, frequent falls, AF, and CVA presents with desire to detox but was too unstable with ambulation to discharge to [facility]. Patient has had 31 admissions and multiple ER visits over the year. *gait instability w frequent falls -PT and OT, multiple hospital admissions and ER visits, unsafe to go back to prior living situation *ETOH abuse -folate, mvi, thiamine -no s/sx of withdrawal at this time *ETOH cirrhosis -Child Hernandez score is a 9 (1 year mortality rate is 19% and at 2 years it is 43%) *Wernickes dementia -short term memory very limited, contributing to her lack of safety at home, patient intermittently aggressive with staff and upset over being kept in the hospital, PRN haldol for agitation/aggression *FTT -underweight, frequently admitted -unsteady and high risk for falling *Depression -patient declining treatment *hx of CVA -MRI show new area of old infarct since last MRI in right post parietal cortex ( no acute infarcts) -can't tolerate asa due to low platelet counts *Thrombocytopenia, pancytopenia -2/2 chronic alcohol use and liver disease, stable *AF -not a candidate for AC due to frequent falling, thrombocytopenia *Hypothyroid -started on synthroid, tsh elevated *Plan: order cbc, metp as rec per Dr Felton. cont to work with CM for placement Subjective: In bed. No issues. No pain. Objective: Vital Signs Temp Pulse Resp BP Pulse Ox 36.8 C 75 16 100/64 100 02/27/18 07:40 02/27/18 07:40 02/27/18 07:40 02/27/18 07:40 02/27/18 07:40 Laboratory Results 02/16/18 04:23 02/16/18 18:07 PT 14.5 SEC (12.0-15.0) 02/12/18 04:15 INR 1.11 (0.83-1.16) 02/12/18 04:15 - Physical Exam Constitutional: appears nourished, chronically ill appearing Eyes: PERRL, anicteric sclera Ears, Nose, Mouth, Throat: moist mucous membranes, hearing normal Cardiovascular: No JVD, No edema Respiratory: no respiratory distress, reduced air movement Gastrointestinal: No tenderness, No ascites Skin: warm, normal color Musculoskeletal: no joint effusions, generalized weakness Neurologic: No AAOx3 Psychiatric: not anxious, poor insight, poor judgement, poor memory ICD10 Worksheet Patient Problems: Problems Problem Status Onset Abdominal pain Acute Ankle fracture Acute GI bleed Acute Atrial fibrillation Acute Cardiac arrest Acute UTI (urinary tract infection) Acute Hypomagnesemia Acute Homonymous hemianopsia Acute Dehydration Acute Altered mental status Acute Hypokalemia Acute Hypocalcemia Acute Alcohol withdrawal Acute Nausea and vomiting in adult Acute Alcohol abuse Acute Nausea & vomiting Acute Atrial fibrillation with RVR Acute C. difficile diarrhea Acute 09/23/16
[2018-02-27] MEDS: TEMAZEPAM 15 MG CAP PO PRN (21:12)
[2018-02-28 05:23] LABS: PLATELET COUNT 231 10^3/uL (150-400)
[2018-02-28] MEDS: MULTIVITAMINS 1 EACH TAB PO SCH (07:45)
[2018-02-28] MEDS: MAGNESIUM OXIDE 400 MG TAB PO SCH (07:45)
[2018-02-28] MEDS: LEVOTHYROXINE 100 MCG TAB PO SCH (07:46)
[2018-02-28] MEDS: FOLIC ACID 1 MG TAB PO SCH (07:46)
[2018-02-28] MEDS: CHOLECALCIFEROL VIT D3 1,000 UNITS TAB PO SCH (07:46)
[2018-02-28] MEDS: SUCRALFATE 1 GM TAB PO SCH ×2 (07:46→12:41)
[2018-02-28] MEDS: FLUoxetine 10 MG CAP PO SCH (07:46)
[2018-02-28 07:55] VITALS: BP 100/59
--- NOTE | 2018-02-28 12:37 | HOSPPROG ---
Hospitalist Progress Note Assessment/Plan: 62 yo F w/ hx of ETOH use disorder, cirrhosis, FTT, frequent falls, AF, and CVA presents with desire to detox but was too unstable with ambulation to discharge to [facility]. Patient has had 31 admissions and multiple ER visits over the year. *gait instability w frequent falls -PT and OT, multiple hospital admissions and ER visits, unsafe to go back to prior living situation *ETOH abuse -folate, mvi, thiamine -no s/sx of withdrawal *ETOH cirrhosis -Child Hernandez score is a 9 (1 year mortality rate is 19% and at 2 years it is 43%) *Wernickes dementia -short term memory very limited, contributing to her lack of safety at home, patient's mood variable *FTT -underweight, frequently admitted -unsteady and high risk for falling *Depression -Prozac *hx of CVA -MRI show new area of old infarct since last MRI in right post parietal cortex ( no acute infarcts) -resumed aspirin w improved platelet numbers *Thrombocytopenia, pancytopenia -2/2 chronic alcohol use and liver disease, stable *AF -not a candidate for AC due to frequent falling, thrombocytopenia *Hypothyroid -started on Synthroid, tsh elevated *Plan:[facility] today, Clarisse wants to go there, looking forward to rehab and making friends. Subjective: Clarisse is feeling well, very appreciative to the staff and looking forward to rehab. Objective: Vital Signs Temp Pulse Resp BP Pulse Ox 36.7 C 77 16 100/59 L 97 02/28/18 07:54 02/28/18 07:54 02/28/18 07:54 02/28/18 07:54 02/28/18 07:54 Laboratory Results 02/28/18 04:56 02/28/18 04:56 02/27/18 02/28/18 03/01/18 05:59 05:59 05:59 Intake Total 100 Balance 100 PT 14.5 SEC (12.0-15.0) 02/12/18 04:15 INR 1.11 (0.83-1.16) 02/12/18 04:15 - Physical Exam Constitutional: no apparent distress, appears nourished, not in pain Eyes: PERRL Ears, Nose, Mouth, Throat: hearing normal Respiratory: no respiratory distress Gastrointestinal: normoactive bowel sounds Skin: warm Musculoskeletal: generalized weakness Psychiatric: interacting appropriately, poor memory ICD10 Worksheet Patient Problems: Problems Problem Status Onset Alcohol withdrawal Acute Abdominal pain Acute Alcohol abuse Acute Altered mental status Acute Ankle fracture Acute Atrial fibrillation Acute Atrial fibrillation with RVR Acute C. difficile diarrhea Acute 09/23/16 Cardiac arrest Acute Dehydration Acute GI bleed Acute Homonymous hemianopsia Acute Hypocalcemia Acute Hypokalemia Acute Hypomagnesemia Acute Nausea & vomiting Acute Nausea and vomiting in adult Acute UTI (urinary tract infection) Acute
--- NOTE | 2018-02-28 12:41 | PDIAF ---
- Diagnosis Diagnosis: gait instability w frequent falling, alcohol abuse, FTT, depression Code Status: Full Code - Medication Management Discharge Medications: electronically signed and located in the Home Medication List. - Orders Services needed: Physical Therapy, Occupational Therapy, Speech Language Pathologist Isolation Type: None Diet Recommendation: no restrictions on diet Diet Texture: Regular Texture Diet Additional Instructions: do not drive unless cleared by your PCP do not drink alcohol ever again, it is impacting your life - Follow Up Care Current Providers and Referrals: Kristen Coleman DO [Doctor of Osteopathy] - 5-7 days, call for appt.
--- NOTE | 2018-02-28 14:01 | ASMTDCNOTE ---
Case Management Discharge Discharge Order Complete? Answers: Yes Patient to Obtain Answers: Other Notes: [facility] Transportation Arranged Answers: Other Notes: By Shivani Lance Transport will Pick (Date 02/28/2018 02:00 PM & Time) Faxed Final Orders Answers: Yes Notes: to [facility] Agency/Facility Transfer Answers: Yes Notes: to [facility] Report Printed & Faxed to Receiving Agency Discharge Comments Notes: 02/28/2018 Case Management Note Pt discharging to [facility]. Pt had meeting today with [facility] Undergraduate Advisor. Transportation arranged by Shivani Lance. Faxed final orders to [facility]. RN called report. See notes and previous case management notes if more information is needed. Date Signed: 02/28/2018 02:00 PM Electronically Signed By:Marlena Sandoval RN
--- NOTE | 2018-02-28 14:22 | GDS ---
DISCHARGE DIAGNOSES: 1. Gait instability with frequent falls. 2. Alcohol abuse. 3. Alcohol cirrhosis. 4. Wernicke dementia. 5. Failure to thrive. 6. Depression. 7. History of cerebrovascular accident. 8. Thrombocytopenia, pancytopenia. 9. Atrial fibrillation. 10. Hypothyroidism. HISTORY: Briefly, the patient is a 62-year-old woman who has had multiple admissions to [facility], approximately 31 over the past year. She presented to the emergency room with alcohol withdrawal, cirrhosis, and failure to thrive. She wanted to detox but was too unstable with ambulation to be discharged to the [facility]. Subsequently, she was admitted for further care. CONSULTATIONS DURING HER STAY: 1. Dr. Alda Felton. 2. Dr. Deandre Mcdowell. 3. Dr. Kiet Melo. 4. Ethics committee. 5. Dr. Nathan Brown. HOSPITAL COURSE: 1. Gait instability with frequent falls. She was seen and evaluated by PT and OT. Throughout her stay, she continued to improve. She has steps in her home and has sustained multiple falls. Today, she will be going to [facility] for rehabilitation. 2. Alcohol abuse. She is on folate, multivitamins, and thiamine. 3. Alcohol cirrhosis. Her Child-Hernandez score is a 9, which makes her 1-year mortality rate at 19%, and 2 year, it is at 43%. 4. Wernicke dementia. She has very limited short-term memory. 5. Failure to thrive. She is underweight and frequently admitted. She will do well in a rehab facility. 6. Depression. She had been on Prozac in the past. This was recommended to resume, and this will be continued on discharge. 7. History of CVA. Her MRI showed new areas of old infarct since her last MRI. She was evaluated by Neurology, who did not note any acute infarcts. Her aspirin therapy was resumed today. Her platelets have improved. 8. Thrombocytopenia and pancytopenia. This is secondary to chronic alcohol use and liver disease. 9. Atrial fibrillation. She is not a candidate for oral anticoagulation due to frequent falling. 10. Hypothyroidism. She is on Synthroid. Her TSH was very elevated. DISCHARGE CONDITION: Stable. Blood pressure is 100/59, heart rate of 77, respiratory rate of 16, O2 sats on room air 97%, temperature 36.7 Celsius. DISCHARGE MEDICATIONS: Please see the EMR. DISCHARGE INSTRUCTIONS: 1. To follow up with her PCP and get a repeat TSH in 6 weeks. 2. To abstain from all alcohol. 3. The patient has a proxy who will help with her future decisions. Please see the case management's detailed notes in regard to this patient's long hospital stay. 4. Do not drive until she gets clearance from her PCP. Greater than 30 minutes discharging and coordinating her care. /[id number]/MODL MTDD
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
== END 2018-02-28 15:04 | DRG 775 ==
LOC: OBSVTOIN 02-09 09:09 → F3N 02-09 09:36 → F3E 02-13 10:03
PROVIDERS: ADMIT Family Medicine; ATTEND Family Medicine
DX: F10.239 Alcohol dependence with withdrawal, unspecified (principal); F10.27 Alcohol dependence with alcohol-induced persisting dementia; D69.6 Thrombocytopenia, unspecified; D61.818 Other pancytopenia; I48.91 Unspecified atrial fibrillation; R26.89 Other abnormalities of gait and mobility; R29.6 Repeated falls; K70.30 Alcoholic cirrhosis of liver without ascites; R62.7 Adult failure to thrive; F32.9 Major depressive disorder, single episode, unspecified; E03.9 Hypothyroidism, unspecified; Z86.73 Personal history of transient ischemic attack (TIA), and cerebral infarction without residual deficits
CPT/HCPCS: 80305; 80307; 82607-90; 92507-GN; 92523-GN; 96374; 97116-GP; 97161-GP; 97165-GO; 97530-GO; 97530-GP; 97535-GO; G0480; J0690; J2060; J3411; J3475

== ENCOUNTER 2018-09-11 23:05 | Inpatient (IN) | payer MEDICAID ==
[2018-09-11] MEDS ORDERED: PHENobarbital NA 130 MG/ML VIAL IV ONE (23:20)
--- NOTE | 2018-09-11 23:31 | EDPHY ---
H & P Stated Complaint: alcohol withdrawal Time Seen by Provider: 09/11/18 23:15 HPI/ROS: Chief Complaint: Vomiting HPI: 63-year-old woman with a history of chronic alcohol abuse, atrial fibrillation the past. Patient states she "had a little too much to drink last night" and has been vomiting all day. She is weakness. No blood in her vomit. No dark tarry stools. Last normal bowel movement was 3:00 a.m. This afternoon. No pain. No fevers or chills. No cough. She has an extensive history in this emergency department and hospital. She was [facility] and [facility] a [facility] facility in January of last year. Denies falls. Did not hit her head. She does not ever remember having had this happen to her before however she has been here multiple times for similar presentations in the past. ROS: 10 systems were reviewed and were negative except those elements noted in the HPI. PMH: Chronic alcohol abuse, atrial fibrillation Social History: No smoking, heavy alcohol Family History: non-contributory Physical Exam: Gen: Awake, Alert, tremulous, tachycardic HEENT: Nose: no rhinorrhea Eyes: PERRLA, EOMI Mouth: Moist mucosa Neck: Supple, no JVD Chest: nontender, lungs clear to auscultation Heart: S1, S2 normal, irregularly irregular, tachycardic Abd: Soft, non-tender, no guarding Back: no CVA tenderness, no midline tenderness Ext: no edema, non-tender Skin: no rash Neuro: CN II-XII intact, Sensation grossly intact, Strength 5/5 in bilateral upper and lower extremities - Personal History Tetanus Vaccine Date: 2014 - Medical/Surgical History Hx Asthma: No Hx Chronic Respiratory Disease: No Hx Diabetes: No Hx Cardiac Disease: Yes Hx Renal Disease: No Hx Cirrhosis: No Hx Alcoholism: Yes Hx HIV/AIDS: No Hx Splenectomy or Spleen Trauma: No Other PMH: PMHx: Alcoholism, degenerative disc disease, osteoarthritis, scoliosis, heart murmur, a-fib, C difficile-Dec 2015, hx withdrawal, pancreatitis, R leg fx, CT. PSHx: tonsillectomy - Social History Smoking Status: Never smoked Constitutional: Initial Vital Signs Temperature (C) 37.4 C 09/11/18 23:13 Heart Rate 144 H 09/11/18 23:13 Respiratory Rate 20 09/11/18 23:13 Blood Pressure 170/114 H 09/11/18 23:13 O2 Sat (%) 95 09/11/18 23:13 O2 Delivery Mode Room Air Allergies/Adverse Reactions: Sulfa (Sulfonamide Antibiotics) Allergy (Mild, Verified 02/08/18 21:01) Rash Home Medications: Medication Instructions Recorded Aspirin [Aspirin 81mg (*)] 81 mg PO DAILY 02/09/18 Herbals/Supplements -Info Only 1 ea PO DAILY 02/09/18 Multivitamins [Multivitamin (*)] 1 each PO DAILY 02/09/18 Thiamine HCl [Vitamin B-1] 100 mg PO DAILY 02/09/18 Benzocaine/Menthol 15/4 [Cepacol 1 ea PO PRN PRN lozenge 02/28/18 Lozenge] Cholecalciferol Vit D3 [Vitamin D3 1,000 units PO DAILY tab 02/28/18 (*)] FLUoxetine [Prozac 10 MG (*)] 10 mg PO DAILY cap 02/28/18 Folic Acid [Folic Acid 1 MG (*)] 1 mg PO DAILY tab 02/28/18 Levothyroxine [Synthroid 100 mcg 100 mcg PO DAILY@0730 tab 02/28/18 (*)] Magnesium Oxide [Magnesium Oxide 400 mg PO DAILY tab 02/28/18 400 mg (*)] Ondansetron Odt [Zofran Odt 4 mg 4 mg PO Q4HRS PRN tab 02/28/18 (*)] Sucralfate [Carafate 1 GM (*)] 1 gm PO ACHS tab 02/28/18 Temazepam [Restoril 15 MG (*)] 15 mg PO HS PRN cap 02/28/18 Medical Decision Making - Diagnostics EKG Interpretation: ECG time 11:20 p.m., atrial fibrillation with a ventricular rate of 142, borderline ST-T changes in V6, otherwise no ischemia. ED Course/Re-evaluation: 63-year-old woman with known history of chronic alcohol abuse, atrial fibrillation presenting with dehydration, vomiting all day and atrial fibrillation. She has a CIWA score of 11. Plan will be to load with an IV does of phenobarbital, 10 milligrams/kilogram of ideal body weight over 30 min. IV hydration, plan for admission to the hospitalist. Patient did receive Zofran from EMS is feeling improved. She has not received any benzodiazepines. - Data Points Laboratory Results: Laboratory Results 09/11/18 23:16 09/11/18 23:16 09/11/18 09/11/18 09/11/18 23:18 23:16 23:16 WBC 5.34 10^3/uL 10^3/uL (3.80-9.50) RBC 4.80 10^6/uL 10^6/uL (4.18-5.33) Hgb 14.1 g/dL g/dL (12.6-16.3) Hct 42.8 % % (38.0-47.0) MCV 89.2 fL fL (81.5-99.8) MCH 29.4 pg pg (27.9-34.1) MCHC 32.9 g/dL g/dL (32.4-36.7) RDW 15.1 % % (11.5-15.2) Plt Count 285 10^3/uL 10^3/uL (150-400) MPV 9.8 fL fL (8.7-11.7) Neut % (Auto) 71.5 % % (39.3-74.2) Lymph % (Auto) 19.7 % % (15.0-45.0) [place] % (Auto) 6.4 % % (4.5-13.0) Eos % (Auto) 0.9 % % (0.6-7.6) Baso % (Auto) 1.1 % % (0.3-1.7) Nucleat RBC Rel Count 0.0 % % (0.0-0.2) Absolute Neuts (auto) 3.82 10^3/uL 10^3/uL (1.70-6.50) Absolute Lymphs (auto) 1.05 10^3/uL 10^3/uL (1.00-3.00) Absolute Monos (auto) 0.34 10^3/uL 10^3/uL (0.30-0.80) Absolute Eos (auto) 0.05 10^3/uL 10^3/uL (0.03-0.40) Absolute Basos (auto) 0.06 10^3/uL 10^3/uL (0.02-0.10) Absolute Nucleated RBC 0.00 10^3/uL 10^3/uL (0-0.01) Immature Gran % 0.4 % % (0.0-1.1) Immature Gran # 0.02 10^3/uL 10^3/uL (0.00-0.10) Sodium 135 mEq/L mEq/L (135-145) Potassium 4.7 mEq/L mEq/L (3.5-5.2) Chloride 98 mEq/L mEq/L (97-110) Carbon Dioxide 13 mEq/l L mEq/l (22-31) Anion Gap 24 mEq/L H mEq/L (6-14) BUN 12 mg/dL mg/dL (7-23) Creatinine 0.7 mg/dL mg/dL (0.6-1.0) Estimated GFR > 60 Glucose 114 mg/dL H mg/dL (70-100) Calcium 10.1 mg/dL mg/dL (8.5-10.4) POC Troponin I 0.00 ng/mL ng/mL (0.00-0.08) Point of Care Test Results: Chemistry 09/11/18 23:18 POC Troponin I 0.00 ng/mL ng/mL (0.00-0.08) Departure - Departure Disposition: [facility] Inpatient Acute Clinical Impression: Alcohol withdrawal, Atrial fibrillation with RVR Condition: Fair Referrals: Patient,NotPresent [Unknown] - As per Instructions
[2018-09-11 23:39] LABS: PLATELET COUNT 285 10^3/uL (150-400)
[2018-09-11] MEDS ORDERED: PHENOBARBITAL NA IV ONE (23:45)
[2018-09-11] MEDS ORDERED: NS IV ONE (23:45)
[2018-09-11] MEDS ORDERED: NS 1,000 ML IV ONE (23:50)
[2018-09-12] MEDS ORDERED: ONDANSETRON 4 MG/2 ML VIAL ONE (00:22)
[2018-09-12] MEDS ORDERED: ONDANSETRON 4 MG/2 ML VIAL IVP ONE (00:23)
[2018-09-12] MEDS ORDERED: ONDANSETRON DISINTEGRATING 4 MG TAB PO PRN (00:51)
[2018-09-12] MEDS ORDERED: ONDANSETRON 4 MG/2 ML VIAL IVP PRN (00:51)
[2018-09-12] MEDS ORDERED: FLUMAZENIL 0.5 MG/5 ML MDV IVP PRN (00:56)
[2018-09-12] MEDS ORDERED: LORazepam 2 MG/ML INJ IVP PRN (00:56)
[2018-09-12] MEDS ORDERED: DILTIAZEM 25 MG/5 ML VIAL IVP ONE (01:00)
[2018-09-12] MEDS ORDERED: DILTIAZEM HCL/D5W 125 ML IV SCH (01:00)
[2018-09-12] MEDS ORDERED: NS 1,000 ML IV SCH (01:00)
[2018-09-12] MEDS: chlordiazePOXIDE 25 MG CAP PO SCH ×2 (01:20→09:23)
[2018-09-12] MEDS: ACETAMINOPHEN 325 MG TAB PO PRN (01:20)
[2018-09-12] MEDS: PANTOPRAZOLE SODIUM 40 MG TAB PO SCH ×2 (01:20→09:23)
--- NOTE | 2018-09-12 02:40 | PDGENHP ---
History and Physical - Chief Complaint Nausea vomiting - History of Present Illness Source-patient is able to provide a limited amount of history. She is currently somnolent and a little sedated. EMR was reviewed and case discussed with ED provider. HPI-this is a 63-year-old female with past medical history significant for alcohol dependence and associated alcohol withdrawal and seizures, history of cardiac arrest secondary to aspiration, alcoholic pancreatitis, atrial fibrillation, anemia, HTN, chronic pain, hypothyroidism who presents emergency department today via EMS with complaints of intractable nausea vomiting that started approximately 10:00 a.m.. Patient denies any known sick contacts. She denies any fevers or chills. No chest pain, palpitations, shortness of breath, abdominal pain. She denies any diarrhea. When patient arrived to the emergency department she was found to be tachycardic in AFib with RVR to the 140s the aunt with evidence of active alcohol withdrawal with a CIWA score of 11. Her blood pressure also was mildly elevated. The patient was given a bolus dosing of phenobarbital which did not have significant influenza on patient's heart rate but did some have some affect on her CIWA scoring. Patient denies any daily alcohol consumption she reports that she drinks twice weekly. She has not been admitted to [facility] since January of 2018 at which point she was discharged to alf facility. Patient does not recall when she was discharged back to home. She lives alone. History Information - Allergies/Home Medication List Allergies/Adverse Reactions: Sulfa (Sulfonamide Antibiotics) Allergy (Mild, Verified 02/08/18 21:01) Rash Home Medications: Aspirin [Aspirin 81mg (*)] 81 mg PO DAILY 02/09/18 [Last Taken 02/08/18] Herbals/Supplements -Info Only 1 ea PO DAILY 02/09/18 [Last Taken Unknown] Multivitamins [Multivitamin (*)] 1 each PO DAILY 02/09/18 [Last Taken Unknown] Thiamine HCl [Vitamin B-1] 100 mg PO DAILY 02/09/18 [Last Taken 02/08/18] I have personally reviewed and updated: family history, medical history, social history, surgical history - Past Medical History Additional medical history: atrial fibrillation not a candidate for anticoagulation secondary to fall risk and history of coagulopathy and thrombocytopenia. etoh dependence with history of pancreatitis, withdrawal seizures. C diff 12/2015. anemia, coagulopathy. degenerative disk disease. scoliosis. chronic back pain. hypothyroidism. depression. History DVT and PE. History of cardiac arrest secondary to aspiration. ETOH gastritis. Wernicke dementia. Depression. History CVA previously on aspirin. - Surgical History Additional surgical history: ORIF tib-fib 03/26/17. T/A - Family History Additional family history: father age 42 due to accident. mother age 50s due to esophageal ca - Social History Smoking Status: Never smoked Alcohol Use: Occasionally Drug Use: None Additional social history: Patient lives alone. COR - FULL. desires Renay Carbone (sister) to act as proxy if needed. Review of Systems Review of Systems: ROS: 10pt was reviewed & negative except for what was stated in HPI & below Physical Exam Physical Exam: Selected Entries 09/11/18 23:13 Blood Pressure Automatic Method Heart Rate 144 H Respiratory 20 Rate O2 Sat (%) 95 Temperature (C) 37.4 C Blood Pressure 170/114 H Mean Arterial 132 H Pressure (MAP) O2 Delivery Room Air Mode Temp Pulse Resp BP Pulse Ox 37.3 C 141 H 12 136/96 H 92 09/12/18 01:05 09/12/18 01:36 09/12/18 01:05 09/12/18 01:05 09/12/18 01:05 Constitutional: no apparent distress, chronically ill appearing, other (NAD. patient is resting quietly in bed somnolent but wakes to name. ) Eyes: PERRL (slightly decreased reactivity to light bilaterally but symmetric. ) , anicteric sclera, EOMI (The grossly normal movement but limited exam due to patient's somnolence), No scleral injection Ears, Nose, Mouth, Throat: dry mucous membranes, other (No nasal discharge.), No hard of hearing Cardiovascular: irregularly irregular, pulses symmetric bilaterally, tachycardia , No systolic murmur, No edema Peripheral Pulses: 1+: dorsalis-pedis (R), dorsalis-pedis (L) Respiratory: no respiratory distress, no rales or rhonchi, clear to auscultation , reduced air movement (Diminished bibasilarly.), No inspiratory crackles Gastrointestinal: normoactive bowel sounds, soft, non-tender abdomen, no palpable masses, No tenderness, No distension Genitourinary: no bladder tenderness, No nicole in urethra Skin: warm, normal color, no rashes or abrasions, No rash Musculoskeletal: full muscle strength, no muscle tenderness, No generalized weakness Neurologic: AAOx3, sensation intact bilaterally, other (Patient is somnolent sedated but wakes easily. She moves all extremities. Grossly nonfocal exam.), No facial droop Psychiatric: other (Somnolent and stated but wakes to name.) Lab Data & Imaging Review 09/11/18 23:16 09/11/18 23:16 WBC 5.34 10^3/uL (3.80-9.50) 09/11/18 23:16 RBC 4.80 10^6/uL (4.18-5.33) 09/11/18 23:16 Hgb 14.1 g/dL (12.6-16.3) 09/11/18 23:16 Hct 42.8 % (38.0-47.0) 09/11/18 23:16 MCV 89.2 fL (81.5-99.8) 09/11/18 23:16 MCH 29.4 pg (27.9-34.1) 09/11/18 23:16 MCHC 32.9 g/dL (32.4-36.7) 09/11/18 23:16 RDW 15.1 % (11.5-15.2) 09/11/18 23:16 Plt Count 285 10^3/uL (150-400) 09/11/18 23:16 MPV 9.8 fL (8.7-11.7) 09/11/18 23:16 Neut % (Auto) 71.5 % (39.3-74.2) 09/11/18 23:16 Lymph % (Auto) 19.7 % (15.0-45.0) 09/11/18 23:16 [place] % (Auto) 6.4 % (4.5-13.0) 09/11/18 23:16 Eos % (Auto) 0.9 % (0.6-7.6) 09/11/18 23:16 Baso % (Auto) 1.1 % (0.3-1.7) 09/11/18 23:16 Nucleat RBC Rel Count 0.0 % (0.0-0.2) 09/11/18 23:16 Absolute Neuts (auto) 3.82 10^3/uL (1.70-6.50) 09/11/18 23:16 Absolute Lymphs (auto) 1.05 10^3/uL (1.00-3.00) 09/11/18 23:16 Absolute Monos (auto) 0.34 10^3/uL (0.30-0.80) 09/11/18 23:16 Absolute Eos (auto) 0.05 10^3/uL (0.03-0.40) 09/11/18 23:16 Absolute Basos (auto) 0.06 10^3/uL (0.02-0.10) 09/11/18 23:16 Absolute Nucleated RBC 0.00 10^3/uL (0-0.01) 09/11/18 23:16 Immature Gran % 0.4 % (0.0-1.1) 09/11/18 23:16 Immature Gran # 0.02 10^3/uL (0.00-0.10) 09/11/18 23:16 Sodium 135 mEq/L (135-145) 09/11/18 23:16 Potassium 4.7 mEq/L (3.5-5.2) 09/11/18 23:16 Chloride 98 mEq/L (97-110) 09/11/18 23:16 Carbon Dioxide 13 mEq/l (22-31) L 09/11/18 23:16 Anion Gap 24 mEq/L (6-14) H 09/11/18 23:16 BUN 12 mg/dL (7-23) 09/11/18 23:16 Creatinine 0.7 mg/dL (0.6-1.0) 09/11/18 23:16 Estimated GFR > 60 09/11/18 23:16 Glucose 114 mg/dL (70-100) H 09/11/18 23:16 Calcium 10.1 mg/dL (8.5-10.4) 09/11/18 23:16 POC Troponin I 0.00 ng/mL (0.00-0.08) 09/11/18 23:18 EKG additional interpertation: Telemetry showing a fib RVR with the rate in the 130s. EKG not yet crossed over an EMR attempting to locate. Assessment & Plan Assessment: this is a 63-year-old female with past medical history significant for alcohol dependence and associated alcohol withdrawal and seizures, history of cardiac arrest secondary to aspiration, alcoholic pancreatitis, atrial fibrillation, anemia, HTN, chronic pain, hypothyroidism who presents emergency department today via EMS with complaints of intractable nausea vomiting that started approximately 10:00 a.m.. #Alcohol withdrawal (Acute) - patient CIWA score in the ED was 11. She was given a bolus dosing of phenobarbital. It did not have significant effect on her blood pressures or tachycardia. Patient has been transition to Ativan p.r.n. and Librium scheduled. CIWA score is now at 7. IV fluid hydration. Thiamine daily. #Atrial fibrillation with RVR (Acute) - treatment for alcohol withdrawal symptoms and IV fluid hydration. Additionally patient has been started on diltiazem bolus followed by drip. Patient is not a candidate for anticoagulation with her history of falls, bleeding, thrombocytopenia and coagulopathy. #Nausea vomiting related withdrawal-improved. Antiemetics p.r.n. #Anion gap metabolic acidosis - likely related to patient's alcohol withdrawal and dehydration. Fluids as noted above repeat a BMP in the morning. No evidence of infectious process. Chronic medical issues #Hypothyroidism - resume levothyroxine when patient mentation improved and dosing verified by pharmacy. #Benign essential HTN - blood pressures downtrending currently on a Cardizem drip. #History DVT/PE - a candidate for anticoagulation for 4 reasons as noted above #History of cardiac arrest secondary to aspiration hold off on diet until patient's mentation improves. FEN - IV fluid hydration overnight. Electrolyte monitoring replacement if needed. Holding diet till patient's mentation improves as noted above. PPX-SCDs. Holding anticoagulation in setting of thrombocytopenia.
[2018-09-12 06:56] LABS: INR 1.04 (0.83-1.16); PROTIME(PATIENT) 13.2 SEC (12.0-15.0)
[2018-09-12] MEDS: THIAMINE HCL 500 MG in NS 100 ML IV SCH (09:14)
--- NOTE | 2018-09-12 10:48 | HOSPPROG ---
Hospitalist Progress Note Assessment/Plan: 63yo F with h/o alcohol dependence/withdrawal, afib, ? wernicke's encephalopathy here with nausea found to be in afib w/rvr. #Atrial fibrillation w/RVR - TTE - Check TSH - Start PO dilt 60 q6, wean dilt gtt - Not anticoagulation candidate given falls/etoh #Alcohol withdrawal - s/p 610mg phenobarb in ED - Stop librium - Continue CIWA protocol #Nausea/vomiting: resolved, related to withdrawal #H/o CVA: seemingly thromboembolic in setting of afib - Restart aspirin 81mg daily, not AC candidate as above #H/o DVT/PE: circumstances unclear, not on chronic AC #Hepatic steatosis/cirrhosis, portal vein thrombus: meld 7 #Hypothyroidism: cont LT4 replacement #Wernicke's dementia #Social: previously living at skilled nursing, apparently more recently at home. CM aware and ofllowing VTE ppx: LMWH Code: full Dispo: remain inpatient Subjective: Doing much better. No longer having nausea or vomiting. HR better, still on dilt gtt. Objective: Vital Signs Temp Pulse Resp BP Pulse Ox 36.8 C 102 H 14 110/73 93 09/12/18 08:11 09/12/18 08:11 09/12/18 08:11 09/12/18 08:11 09/12/18 08:11 Laboratory Results 09/12/18 06:30 09/12/18 06:30 09/11/18 09/12/18 09/13/18 05:59 05:59 05:59 Intake Total 530 Balance 530 PT 13.2 SEC (12.0-15.0) 09/12/18 06:30 INR 1.04 (0.83-1.16) 09/12/18 06:30 - Physical Exam Constitutional: no apparent distress Eyes: PERRL Ears, Nose, Mouth, Throat: moist mucous membranes, hearing normal, ears appear normal, no oral mucosal ulcers Cardiovascular: irregularly irregular, tachycardia, No no murmur, rub, or gallop , No edema Respiratory: no respiratory distress, no rales or rhonchi, clear to auscultation Gastrointestinal: normoactive bowel sounds, soft, non-tender abdomen, no palpable masses Genitourinary: no bladder fullness, no bladder tenderness, no renal bruits Skin: no rashes or abrasions, no fluctuance, no induration Neurologic: AAOx3, other (mild tongue fasciculations and hand tremor) ICD10 Worksheet Patient Problems: Problems Problem Status Onset Alcohol withdrawal Acute Atrial fibrillation with RVR Acute Abdominal pain Acute Alcohol abuse Acute Altered mental status Acute Ankle fracture Acute Atrial fibrillation Acute C. difficile diarrhea Acute 09/23/16 Cardiac arrest Acute Dehydration Acute GI bleed Acute Homonymous hemianopsia Acute Hypocalcemia Acute Hypokalemia Acute Hypomagnesemia Acute Nausea & vomiting Acute Nausea and vomiting in adult Acute UTI (urinary tract infection) Acute
--- NOTE | 2018-09-12 11:21 | ASMTLACE ---
JAYSON Acuity / Level of Answers: Yes Care: Did the patient have an inpatient admission? Comorbidities - select Answers: Cerebrovascular disease all that apply (CVA, TIA, aneurysms, vasc ular dementia) Dementia History of falls Previous myocardial infarction Other Notes: AFib; DVT/PE; Hypothyro id # of Emergency department Answers: 1-2 visits in the last 6 months Social determinants Answers: History of substance abuse (ETOH, street drugs, prescription drugs, etc.) Mental health diagnosis (anxiety, depression, pers onality disorders, etc.) Lack of community resources and/or lack of social support (no pcp, lives alone, transportation, danni d) Score: 23 Date Signed: 09/12/2018 11:20 AM Electronically Signed By:Sherri Bolanos
[2018-09-12] MEDS: LEVOTHYROXINE 125 MCG TAB PO SCH (11:26)
[2018-09-12] MEDS: ENOXAPARIN 40 MG/0.4 ML SYR SC SCH (11:26)
[2018-09-12] MEDS: ASPIRIN 81 MG CHEWABLE TAB PO SCH (11:26)
[2018-09-12] MEDS: DILTIAZEM 60 MG TAB PO SCH ×2 (11:34→18:05)
--- NOTE | 2018-09-12 12:45 | PDMN ---
Medical Necessity Medical necessity: Pt meets IP criteria per & MCG M-595; est los >2 mn for eval/tx of alcohol withdrawal (CIWA 11) with AFIB w/RVR; admit for further workup/monitoring, Diltiazem gtt & CIWA protocol; hx alcohol dependence, withdrawal seizures, cardiac arrest, Wernicke's dementia, CVA, DVT/PE, AFIB no AC given hx of falls/etoh; per H&P & order 09/11/18
[2018-09-12] MEDS ORDERED: PNEUMOCOCCAL 0.5ML VACCINE VIAL (PNEUMOVAX 23) IM ONE (15:10)
--- NOTE | 2018-09-12 16:51 | ASMTCASEMG ---
Living Arrangements What is your living Answers: Alone arrangement? Who do you live with? Type Of Residence What kind of residence do Answers: House you live in? Discharge Plan Comments Coordination Status Comments Notes: Patient is a 63yo single female who is well known to [facility] as a frequently returning patient. Patient has a significant medical hx for alcohol dependence, associated ETOH withdrawal and seizures, cardiac arrest secondary to aspiration, alcoholic pancreatitis, AFIB, Anemia, HTN, chronic pain, hypothyroidism. She presents to [facility] ER with nausea and vomiting. Patient was placed in a senior care facility after her last hospitalization with [facility] from which she was eventually discharged. (January 2018) She was closely followed by [facility] ( Britt) for outpatient support and services. This is her first hospitalization since January 2018. Britt reports the patient as of recent has been cancelling appointments and not allowing them in the home. Patient still lives alone in her home on [address] in [place]. Patient was found to have evidence of active alcohol withdrawal (CIWA 11) in the ER for which she was given phenobarbital. Patient was admitted OBS for alcohol withdrawal, AFIB, nausea and vomiting, anion gap metabolic acidosis. CM working on proxy for back up since patient's decisional capacity can be impaired by Wernicke's dementia and etoh related cognitive impairment. Patient expressed Renay Carbone her sister act as her proxy if needed according to H and P. No therapies ordered at this time. D/C plan TBD. CM following. Date Signed: 09/12/2018 04:50 PM Electronically Signed By:Ruthie Dill LCSW
--- NOTE | 2018-09-12 17:40 | ECHO ---
[email or web address] [address] [address] Main: [phone] Echocardiography Examination Transthoracic Name: SAIRA RAHMAN MR#: [id number] Study Date: 09/12/2018 Study Time: 12:31 PM Date of : 1955 Age: 63 year(s) Height: 165.1 cm (65 in.) Weight: 68.49 kg (151 lb.) BSA: 1.76 m2 Gender: Female Examination: Echo Contrast: Image Quality: Rhythm: Heart Rate: 73 bpm BP: 105 mmHg/62 mmHg Indication: A-fib Procedure Staff Referring Physician: Hand Crown Pouncer: Bart Mendoza RDCS Reading Physician: Amy Palacios MD Requesting Provider: Ordering Physician: Joseph Gonzalez Indication: A-fib Measurements Chambers AV/MV Label Value Normal Value Label Value Normal Value LVOT Vmax 0.91 m/s (0.7m/s - 1.1m/s) AV PGmax 5 mmHg LVOTd 1.9 cm (1.8cm - 2cm) AV PGmean 4 mmHg LVOT VTI 19.2 cm (18cm - 22cm) AV Vmax 1.14 m/s LVDd, 2D 4.6 cm (3.9cm - 5.3cm) VITO (Vmax) 2.3 cm2 LVDs, 2D 3 cm (2.1cm - 4cm) VITO (VTI) 2.3 cm2 IVSd, 2D 0.9 cm (0.6cm - 1.1cm) MV E Vmax 0.83 m/s LVPWd, 2D 1.1 cm MV A Vmax 0.64 m/s LVEF, 2D 64 % (54% - 74%) MV E/A 1.3 LVOT PGmean 2 mmHg MV E/E' lateral 10.2 LVOT Vmean 0.64 m/s MV E/E' septal 16.4 (0.45 - 1.25) LA Volume, BP 46 ml (22ml - 52ml) MV E' septal 0.05 m/s LAESV index, BP 26.1 ml/m2 MV E' lateral 0.08 m/s Additional Vessels MV E/E' mean 12.77 Label Value Normal Value MV E' mean 0.06 m/s AoRoot, MM 3 cm (2.2cm - 3.7cm) Conclusions 1. the left ventricle is normal in size systolic function. The ejection fraction is 65%. No regional wall motion abnormalities. Patient: SAIRA RAHMAN Study Date: 09/12/2018 Page 1 of 2 12:31 PM 2. The right ventricle is normal in size and systolic function. 3. no significant valvular disease. 4. overall similar findings compared to 08/04/2017 Findings Left Ventricle: Left ventricle is normal in size. Normal global systolic left ventricular function. The EF is visually estimated to be 65 %. EF range is estimated at 60 % - 65 %. Left ventricle wall thickness is normal. There are no regional wall motion abnormalities. Left ventricular diastolic function parameters are normal. IVS: The septum is intact. Right Ventricle: Normal size right ventricle. Right ventricular systolic function is normal. Left Atrium: The left atrium is normal in size. IAS: Normal appearing atrial septum. Right Atrium: The right atrium is normal in size. Mitral Valve: Mitral valve is normal in appearance. No mitral regurgitation. No mitral valve stenosis. Aortic Valve: Aortic leaflets exhibit normal cuspal separation. No aortic valve regurgitation. There is no aortic stenosis. Tricuspid Valve: Tricuspid valve leaflets are normal in appearance and function. No tricuspid regurgitation. No tricuspid valve stenosis. Pulmonary artery pressure cannot be assessed due to inadequate TR signal. Pulmonic Valve: Pulmonic leaflets exhibit normal cuspal separation. No pulmonic valve regurgitation is evident. There is no pulmonic valve stenosis. Aorta: The aorta is normal. The aortic root size in M-mode measures 3.0 cm. Aorta Measurements AoRoot, MM is 3.0 cm. Pulmonary Artery: The pulmonary artery morphology appears normal. IVC: The inferior vena cava is normal in size and course. Pericardium: A pericardial fat pad is present. No pericardial effusion. No pleural effusion present. Exam Details Procedure Ordered: Echo (No Signature Object) Patient: SAIRA RAHMAN Study Date: 09/12/2018 Page 2 of 2 12:31 PM [id number]
[2018-09-13] MEDS: DILTIAZEM 60 MG TAB PO SCH ×4 (00:08→18:11)
[2018-09-13] MEDS: LEVOTHYROXINE 125 MCG TAB PO SCH (06:15)
[2018-09-13] MEDS: PANTOPRAZOLE SODIUM 40 MG TAB PO SCH (09:48)
[2018-09-13] MEDS: FLUoxetine 20 MG CAP PO SCH (09:48)
[2018-09-13] MEDS: ENOXAPARIN 40 MG/0.4 ML SYR SC SCH (09:48)
[2018-09-13] MEDS: ASPIRIN 81 MG CHEWABLE TAB PO SCH (09:48)
--- NOTE | 2018-09-13 12:26 | ASMTCMCOM ---
CM Note CM Note Notes: Patient informed Shivani Lance yesterday , she would like her neighbors Nolan and Danelle Moslye to be her proxy decision makers. Danelle's number is [phone]. Spoke with Danelle and she is coming by today at 16:00 to sign the proxy form and get her questions answered. CM following. Date Signed: 09/13/2018 12:25 PM Electronically Signed By:Ruthie Dill LCSW
[2018-09-13] MEDS: THIAMINE HCL 500 MG in NS 100 ML IV SCH (13:19)
--- NOTE | 2018-09-13 14:01 | HOSPPROG ---
Hospitalist Progress Note Assessment/Plan: 63yo F with h/o alcohol dependence/withdrawal, afib, ? wernicke's encephalopathy here with nausea found to be in afib w/rvr. #Atrial fibrillation w/RVR: spontaneous conversion to NSR - TTE ok, TSH nl - Switch to dilt XR 240mg daily tomorrow from 60mg q6 - Not anticoagulation candidate given falls/etoh #Alcohol withdrawal: resolved - Stop CIWA #Nausea/vomiting: resolved, related to withdrawal #H/o CVA: seemingly thromboembolic in setting of afib - Restarted aspirin 81mg daily, not AC candidate as above #H/o DVT/PE: circumstances unclear, not on chronic AC #Hepatic steatosis/cirrhosis, portal vein thrombus: meld 7 #Hypothyroidism: cont LT4 replacement #Wernicke's dementia #Social: [facility], apparently more recently at home. CM aware and ofllowing VTE ppx: LMWH Code: full Dispo: remain inpatient, unsafe to dc to home Subjective: No complaints, doing well. Objective: Vital Signs Temp Pulse Resp BP Pulse Ox 36.6 C 68 13 112/72 96 09/13/18 12:00 09/13/18 12:00 09/13/18 12:00 09/13/18 12:00 09/13/18 12:00 Laboratory Results 09/12/18 06:30 09/13/18 05:40 09/12/18 09/13/18 09/14/18 05:59 05:59 05:59 Intake Total 530 1275 Balance 530 1275 PT 13.2 SEC (12.0-15.0) 09/12/18 06:30 INR 1.04 (0.83-1.16) 09/12/18 06:30 - Physical Exam Constitutional: no apparent distress, appears nourished, not in pain Eyes: PERRL, anicteric sclera, EOMI Ears, Nose, Mouth, Throat: moist mucous membranes, hearing normal, ears appear normal, no oral mucosal ulcers Cardiovascular: regular rate and rhythym, no murmur, rub, or gallop, No edema Respiratory: no respiratory distress, no rales or rhonchi, clear to auscultation Gastrointestinal: normoactive bowel sounds, soft, non-tender abdomen, no palpable masses Genitourinary: no bladder fullness, no bladder tenderness, no renal bruits Skin: no rashes or abrasions, no fluctuance, no induration Musculoskeletal: full muscle strength, no muscle tenderness, normal joint ROM Neurologic: other (alert) ICD10 Worksheet Patient Problems: Problems Problem Status Onset Alcohol withdrawal Acute Atrial fibrillation with RVR Acute Abdominal pain Acute Alcohol abuse Acute Altered mental status Acute Ankle fracture Acute Atrial fibrillation Acute C. difficile diarrhea Acute 09/23/16 Cardiac arrest Acute Dehydration Acute GI bleed Acute Homonymous hemianopsia Acute Hypocalcemia Acute Hypokalemia Acute Hypomagnesemia Acute Nausea & vomiting Acute Nausea and vomiting in adult Acute UTI (urinary tract infection) Acute
[2018-09-13] MEDS: ACETAMINOPHEN 325 MG TAB PO PRN (20:22)
[2018-09-14] MEDS: LEVOTHYROXINE 125 MCG TAB PO SCH (05:16)
[2018-09-14] MEDS ORDERED: DILTIAZEM XR 240 MG CAP PO SCH (08:00)
[2018-09-14] MEDS: PANTOPRAZOLE SODIUM 40 MG TAB PO SCH (09:25)
[2018-09-14] MEDS: FLUoxetine 20 MG CAP PO SCH (09:25)
[2018-09-14] MEDS: ASPIRIN 81 MG CHEWABLE TAB PO SCH (09:26)
[2018-09-14] MEDS: ENOXAPARIN 40 MG/0.4 ML SYR SC SCH (09:26)
[2018-09-14] MEDS: THIAMINE HCL 500 MG in NS 100 ML IV SCH (11:12)
[2018-09-14 11:51] VITALS: BP 115/71
--- NOTE | 2018-09-14 13:04 | PDDCSUM ---
Discharge Summary Discharge Summary: Date of Admission: 09/12/2018 Date of Discharge: 09/14/2018 Studies: TTE Discharge Diagnoses: 1. Atrial fibrillation with RVR, resolved 2. Acute (mild) alcohol withdrawal, resolved 3. Nausea, vomiting 4. H/o CVA 5. H/o DVT/PE not on anticoagulation 6. Hepatic steatosis/cirrhosis, chronic portal vein thrombus 7. Hypothyroidism 8. ? Wernicke's dementia - she did have decision making capacity at time of discharge Brief Hospital Course: 63yo F with h/o alcohol dependence/withdrawal, afib, ? wernicke's encephalopathy presented with nausea and vomiting. She was found to be in atrial fibrillation with HR in the 140s. She was started on a diltiazem gtt and transitioned to PO diltiazem at which time she converted to sinus rhythm. An echocardiogram revealed normal valves and EF. She was discharged with a prescription for PO diltiazem. She is not an anticoagulation candidate due to her history of alcoholism and frequent falls; this was discussed with her and she understands the risks of not being anticoagulated. She was also noted to be in mild alcohol withdrawal on arrival. This was likely the etiology of her nausea and vomiting and this resolved with treatment of her withdrawal. She did not require a significant amount of benzodiazepines. I counseled her on the importance of alcohol cessation. She was set up with home health PT, OT, and RN at time of discharge. Medications: Please refer to EMR for complete list. I wrote prescriptions for the followin. Diltiazem XR 240mg daily #30 2. I instructed her to begin aspirin 81mg daily Follow Up Plan: 1. PCP visit in 1 week Physical Exam: Vitals reviewed, normal HR. Alert and oriented, rrr, lungs clear , abdomen soft and nt, no leg edema, no hand tremors or tongue fasciculations.
--- NOTE | 2018-09-14 13:04 | PDIAF ---
- Medication Management Discharge Medications: electronically signed and located in the Home Medication List. - Orders Services needed: Home Care, Physical Therapy, Occupational Therapy Home Care Face to Face: I certify that this patient was under my care and that I had the required [id number] encounter meeting the encounter requirements on the discharge day. My findings support the fact that the patient is homebound as defined in Home Care Face to Face Continued: CMS Chapter 7 Medicare Benefits Manual 30.1.1 , The condition of the patient is such that there exists a normal inability to leave home and consequently, leaving home would require a considerable and taxing effort. Isolation Type: None Additional Instructions: I sent prescription for diltiazem (heart medication) to your [facility] pharmacy. I also recommend that you start taking aspirin 81mg daily. Please follow up with your primary care doctor this week! - Follow Up Care Current Providers and Referrals: Patient,NotPresent [Unknown] - As per Instructions
--- NOTE | 2018-09-14 14:40 | PDIAF ---
- Medication Management Discharge Medications: electronically signed and located in the Home Medication List. - Orders Services needed: Home Care, Registered Nurse, Physical Therapy, Occupational Therapy Home Care Face to Face: I certify that this patient was under my care and that I had the required [id number] encounter meeting the encounter requirements on the discharge day. My findings support the fact that the patient is homebound as defined in Home Care Face to Face Continued: CMS Chapter 7 Medicare Benefits Manual 30.1.1 , The condition of the patient is such that there exists a normal inability to leave home and consequently, leaving home would require a considerable and taxing effort. Isolation Type: None Additional Instructions: I sent prescription for diltiazem (heart medication) to your [facility] pharmacy. I also recommend that you start taking aspirin 81mg daily. Please follow up with your primary care doctor this week! - Follow Up Care Current Providers and Referrals: Patient,NotPresent [Unknown] - As per Instructions
--- NOTE | 2018-09-14 15:27 | ASDISCHSUM ---
Discharge Information Plan Status:Home with Home Health Medically Cleared to Leave:09/14/2018 Discharge Date:09/14/2018 03:16 PM CM D/C Disposition:Home Health Service ADT D/C Disposition:Home Health Service Projected Discharge Date:09/14/2018 11:00 AM Transportation at D/C:Taxicab Discharge Delay Reason: Follow-Up Date:09/14/2018 11:00 AM Discharge Slot: Final Diagnosis: Placement Information Referral Type:*Home Health Care Services Referral ID:[id number] Provider Name: Address 1: Phone Number: Address 2: Fax Number: City: Selection Factors: State: Patient Contact Information Contact Name:ALEXANDRA Relationship:Sister Address: City: [place] [place] [facility] Phone: [facility]/Zip Code: Email: Financial Information Financial Class:Medicaid Primary Plan Desc:[employer] Primary Plan Number:[id number] Secondary Plan Desc: Secondary Plan Number: Assessment Information LACE LACE Acuity / Level of Answers: Yes Care: Did the patient have an inpatient admission? Comorbidities - select Answers: Cerebrovascular disease all that apply (CVA, TIA, aneurysms, vasc ular dementia) Dementia History of falls Previous myocardial infarction Other Notes: AFib; DVT/PE; Hypothyro id # of Emergency department Answers: 1-2 visits in the last 6 months Social determinants Answers: History of substance abuse (ETOH, street drugs, prescription drugs, etc.) Mental health diagnosis (anxiety, depression, pers onality disorders, etc.) Lack of community resources and/or lack of social support (no pcp, lives alone, transportation, danni d) Score: 23 Date Signed: 09/12/2018 11:20 AM Electronically Signed By:Sherri Bolanos [facility] Initial CM Assessment Living Arrangements What is your living Answers: Alone arrangement? Who do you live with? Type Of Residence What kind of residence do Answers: House you live in? Discharge Plan Comments Coordination Status Comments Notes: Patient is a 63yo single female who is well known to [facility] as a frequently returning patient. Patient has a significant medical hx for alcohol dependence, associated ETOH withdrawal and seizures, cardiac arrest secondary to aspiration, alcoholic pancreatitis, AFIB, Anemia, HTN, chronic pain, hypothyroidism. She presents to [facility] ER with nausea and vomiting. Patient was placed in a [facility] facility after her last hospitalization with [facility] from which she was eventually discharged. (January 2018) She was closely followed by [facility] ( Britt) for outpatient support and services. This is her first hospitalization since January 2018. Britt reports the patient as of recent has been cancelling appointments and not allowing them in the home. Patient still lives alone in her home on [address] in [place]. Patient was found to have evidence of active alcohol withdrawal (CIWA 11) in the ER for which she was given phenobarbital. Patient was admitted OBS for alcohol withdrawal, AFIB, nausea and vomiting, anion gap metabolic acidosis. CM working on proxy for back up since patient's decisional capacity can be impaired by Wernicke's dementia and etoh related cognitive impairment. Patient expressed Renay Carbone her sister act as her proxy if needed according to H and P. No therapies ordered at this time. D/C plan TBD. CM following. Date Signed: 09/12/2018 04:50 PM Electronically Signed By:Ruthie Dill LCSW [facility] CM Progress Note CM Note CM Note Notes: Patient informed Shivani Lance yesterday , she would like her neighbors Nolan and Danelle Mosley to be her proxy decision makers. Danelle's number is [phone]. Spoke with Danelle and she is coming by today at 16:00 to sign the proxy form and get her questions answered. CM following. Date Signed: 09/13/2018 12:25 PM Electronically Signed By:Ruthie Dill LCSW Case Management Discharge Plan Note Case Management Discharge Discharge Order Complete? Answers: Yes Patient to Obtain Answers: Independently Medications Transportation Arranged Answers: Taxi - Self Pay Discharge Comments Notes: Pt is discharging home today. Home Care referrals for RN/PT were sent to [facility], [facility] and [facility]. [facility] declined due to pt's noncompliance in the past. Pt stated she has a PCP she has seen one time but couldn't remember the name. She has it at home. [facility] is reviewing, and have not heard back from the other home cares. Pt stated she has neighbors who will help her at home. Of note, her neighbors were supposed to come in yesterday to sign proxy paperwork to become pt's medical decision maker however there is no paperwork in the chart. Date Signed: 09/14/2018 03:25 PM Electronically Signed By:JOSE Jeffries Intervention Information Intervention Type:*Incorrect Registration Date of Service:09/12/2018 11:09 AM Patient Type:Inpatient Staff Member:HEMANTH Mireles Courtney Hours: Discipline: Severity: Comment:
[2018-09-15] MEDS ORDERED: THIAMINE HCL 100 MG TAB PO SCH (09:00)
--- NOTE | 2018-09-16 13:55 | CPEKG ---
Test Reason : OPEN Blood Pressure : / mmHG Vent. Rate : 142 BPM Atrial Rate : 231 BPM P-R Int : 124 ms QRS Dur : 076 ms QT Int : 308 ms P-R-T Axes : 094 022 025 degrees QTc Int : 474 ms atrial flutter Low voltage, extremity leads Borderline ST depression, lateral leads Confirmed by Jose Perkins ([id number]) on 09/16/2018 1:55:01 PM Referred By: Traci Avila Confirmed By:Jose Perkins
--- NOTE | 2018-09-16 13:56 | CPEKG ---
Test Reason : OPEN Blood Pressure : / mmHG Vent. Rate : 084 BPM Atrial Rate : 084 BPM P-R Int : 197 ms QRS Dur : 076 ms QT Int : 426 ms P-R-T Axes : 009 012 031 degrees QTc Int : 504 ms Sinus rhythm Prolonged QT interval Confirmed by Jose Perkins ([id number]) on 09/16/2018 1:56:10 PM Referred By: Traci Avila Confirmed By:Jose Perkins
== END 2018-09-14 15:16 | disposition home health service (06) | DRG 201 ==
LOC: EDUNIT# → OBSVTOIN 09-12 00:29 → F2N 09-12 00:38 → F3E 09-13 23:00
PROVIDERS: ADMIT Family Medicine; ATTEND Internal Medicine
PROC: 5A2204Z Restoration of Cardiac Rhythm, Single (ICD-10-PCS; principal; 2018-09-12)
DX: I48.0 Paroxysmal atrial fibrillation (principal); F10.239 Alcohol dependence with withdrawal, unspecified; E86.0 Dehydration; E87.2 Acidosis; R41.89 Other symptoms and signs involving cognitive functions and awareness; Z86.711 Personal history of pulmonary embolism; Z86.718 Personal history of other venous thrombosis and embolism; Z86.73 Personal history of transient ischemic attack (TIA), and cerebral infarction without residual deficits; K70.30 Alcoholic cirrhosis of liver without ascites; I81 Portal vein thrombosis; E03.9 Hypothyroidism, unspecified; Z91.81 History of falling; F32.9 Major depressive disorder, single episode, unspecified; M51.9 Unspecified thoracic, thoracolumbar and lumbosacral intervertebral disc disorder
CPT/HCPCS: 84484-ER; 96365; 97116-GP; 97161-GP; 97166-GO; J1650; J2060; J2405; J2560; J3411

== ENCOUNTER 2018-10-08 19:40 | Inpatient (IN) | payer MEDICAID | END 2018-10-11 15:42 | disposition home health service (06) | LOC: F3E 21:54 ==